=== PATIENT | male | born 1940 | race Caucasian/White ===

== ENCOUNTER 2021-02-28 06:41 | Outpatient (REF) | payer MEDICARE, SELFPAY ==
--- NOTE | ~2021-02-28 | XR_ITS ---
EXAMINATION: XR CHEST CLINICAL INFORMATION: Essential hypertension. Dyspnea on exertion. COMPARISON: Chest 12/11/2007 TECHNIQUE: 2 views of the chest were obtained. FINDINGS: Since the last exam there is mild elevated left hemidiaphragm likely underlying atelectasis. Otherwise rest of lungs are clear. The heart size and pulmonary vascularity is normal. There is a hiatal hernia suspected. No gross bony abnormality seen. XR/XR chest 2V IMPRESSION: Elevated left hemidiaphragm with underlying atelectasis. The rest of lungs are clear.
--- NOTE | 2021-02-28 07:21 | ECG_ITS ---
Test Reason : PRESCOTT,HTN,CAD Blood Pressure : / mmHG Vent. Rate : 063 BPM Atrial Rate : 063 BPM P-R Int : 150 ms QRS Dur : 090 ms QT Int : 390 ms P-R-T Axes : 021 002 008 degrees QTc Int : 399 ms Sinus rhythm with Premature atrial complexes Otherwise normal ECG When compared with ECG of 11-JUN-2017 07:38, Premature atrial complexes are now Present Referred By: Cj Barber Electronically Signed By:ALBANIA BLAKE MD
[2021-02-28 08:02] LABS: MANUAL DIFF FLAG NO
[2021-02-28 08:04] LABS: Basophils Percent Auto 0.4 % (0-2); Eosinophils Absolute Auto 0.2 X10*3/uL (0.0-0.4); Eosinophils Percent Auto 2.7 % (0-4); Hematocrit 46.9 % (42-52); Hemoglobin 15.8 g/dl (14.0-18.0); Imm Gran Abs Auto 0.01 X10*3/uL (0.00-0.03); Imm Gran Pct Auto 0.1 % (0.0-0.4); Lymphocytes Absolute Auto 1.4 X10*3/uL (1.2-4.9); Lymphocytes Percent Auto 20.7 % (20-40); Mean Corpuscular HGB Conc 33.7 g/dl (31.0-36.0); Mean Corpuscular Hemoglobin 31.2 pg (27.0-33.0); Mean Corpuscular Volume 92.7 fL (80-98); Mean Platelet Volume 12.2 fL (9.4-12.4); Monocytes Absolute Auto 0.5 X10*3/uL (0.1-1.2); Monocytes Percent Auto 6.7 % (2-11); Neutrophils Absolute Auto 4.7 X10*3/uL (2.0-8.3); Neutrophils Percent Auto 69.4 % (45-73); Platelet Count 102 X10*3/uL (160-400); Red Blood Count 5.06 X10*6/uL (4.60-5.80); Red Cell Distribution Width 13.2 % (11.0-16.0); White Blood Count 6.7 X10*3/uL (4.8-10.8)
[2021-02-28 08:29] LABS: Alanine Aminotransferase 26 U/L (0-40); Alkaline Phosphatase 92 U/L (39-117); Anion Gap 10 (12-20); Aspartate Amino Transferase 26 U/L (5-37); B Type Natriuretic Peptide 41 pg/mL (<100); Bilirubin Total 0.9 mg/dL (0.0-1.0); Blood Urea Nitrogen 17 mg/dL (9-16); Calcium 8.8 mg/dL (8.4-10.2); Carbon Dioxide 29 mmol/L (22-29); Chloride 107 mmol/L (96-108); Cholesterol 134 mg/dL; Estimated Glomerular Filt Rate > 60; Glucose Fasting 109 mg/dL (60-99); HDL Cholesterol 46 mg/dL; LDL Cholesterol Calculated 77 mg/dl; Potassium 4.3 mmol/L (3.3-5.1); Sodium 142 mmol/L (135-145); Total Protein 6.3 g/dL (6.5-8.0); Triglycerides 55 mg/dL
[2021-02-28 08:52] LABS: Thyroid Stimulating Hormone 3.68 uIU/mL (0.32-4.0)
== END 2021-02-28 06:42 | disposition home or self-care (01) ==
LOC: HO.LAB 06:41
PROVIDERS: PCP Internal Medicine; Visit Provider Internal Medicine
DX: R06.00 Dyspnea, unspecified (principal); I25.10 Atherosclerotic heart disease of native coronary artery without angina pectoris; I10 Essential (primary) hypertension; E78.00 Pure hypercholesterolemia, unspecified; I49.1 Atrial premature depolarization
CPT/HCPCS: 36415; 71046; 80053; 80061; 83880; 84443; 85025; 93005

== ENCOUNTER 2021-03-14 09:37 | Outpatient (REF) | payer MEDICARE, SELFPAY ==
--- NOTE | 2021-03-14 | PFT_ITS ---
FLOWS: FEV1 of 89% of predicted at 2.28 L. FVC 73% of predicted at 2.68 L. FEV1 to FVC ratio of 0.85. No bronchodilator response. LUNG VOLUMES: Total lung capacity 72% of predicted at 4.81 L. Residual volume 81% of predicted at 2.11 L. Slow vital capacity 66% of predicted at 2.70 L. Expiratory reserve volume 145% of predicted at 1.48 L. Diffusion capacity is mildly decreased, diffusion capacity corrects to normal after adjustment for alveolar ventilation. IMPRESSION: Mild restrictive ventilatory defect with no bronchodilator response. Jerald Choudhury MD AP/MODL / [id number]
== END 2021-03-14 09:38 | disposition home or self-care (01) ==
LOC: HO.RESP 09:37
PROVIDERS: PCP Internal Medicine; Visit Provider Internal Medicine
DX: R06.00 Dyspnea, unspecified (principal)
CPT/HCPCS: 94060; 94727; 94729

== ENCOUNTER 2021-08-09 09:18 | Outpatient (REF) | payer MEDICARE, SELFPAY ==
[2021-08-09 11:15] LABS: MANUAL DIFF FLAG NO
[2021-08-09 11:24] LABS: Basophils Absolute Auto 0.1 X10*3/uL (0.0-0.2); Basophils Percent Auto 0.6 % (0-2); Eosinophils Absolute Auto 0.2 X10*3/uL (0.0-0.4); Eosinophils Percent Auto 2.6 % (0-4); Hematocrit 46.7 % (42-52); Hemoglobin 15.5 g/dl (14.0-18.0); Imm Gran Abs Auto 0.03 X10*3/uL (0.00-0.03); Imm Gran Pct Auto 0.4 % (0.0-0.4); Lymphocytes Absolute Auto 2.1 X10*3/uL (1.2-4.9); Lymphocytes Percent Auto 24.6 % (20-40); Mean Corpuscular HGB Conc 33.2 g/dl (31.0-36.0); Mean Corpuscular Hemoglobin 31.1 pg (27.0-33.0); Mean Corpuscular Volume 93.8 fL (80-98); Mean Platelet Volume 12.1 fL (9.4-12.4); Monocytes Absolute Auto 0.8 X10*3/uL (0.1-1.2); Monocytes Percent Auto 9.5 % (2-11); Neutrophils Absolute Auto 5.2 X10*3/uL (2.0-8.3); Neutrophils Percent Auto 62.3 % (45-73); Platelet Count 109 X10*3/uL (160-400); Red Blood Count 4.98 X10*6/uL (4.60-5.80); Red Cell Distribution Width 13.2 % (11.0-16.0); White Blood Count 8.4 X10*3/uL (4.8-10.8)
== END 2021-08-09 09:19 | disposition home or self-care (01) ==
LOC: HO.HMGCLDS 09:18
PROVIDERS: PCP Internal Medicine; Visit Provider Internal Medicine
DX: D69.6 Thrombocytopenia, unspecified (principal)
CPT/HCPCS: 36415; 85025

== ENCOUNTER 2021-10-08 11:38 | Outpatient (REF) | payer MEDICARE, SELFPAY ==
[2021-10-08 13:01] LABS: Influenza A PCR NEGATIVE (Negative); Influenza B PCR NEGATIVE (Negative); Resp Syncy Virus RNA Qual PCR NEGATIVE (Negative); SARS COV2 PCR INHOUSE POSITIVE (Negative)
== END 2021-10-08 11:39 | disposition home or self-care (01) ==
LOC: HO.LNP 11:38
PROVIDERS: Visit Provider Physician Assistant Medical
DX: Z20.822 Contact with and (suspected) exposure to COVID-19 (principal); J06.9 Acute upper respiratory infection, unspecified
CPT/HCPCS: 0241U

== ENCOUNTER 2021-10-19 08:16 | Outpatient (REF) | payer MEDICARE, SELFPAY ==
[2021-10-19 08:37] LABS: COVID-19 Test Negative (Negative)
== END 2021-10-19 08:17 | disposition home or self-care (01) ==
LOC: HO.LAB 08:16
PROVIDERS: PCP Internal Medicine; Visit Provider Internal Medicine
DX: Z20.822 Contact with and (suspected) exposure to COVID-19 (principal)
CPT/HCPCS: 36415; 87635; C9803

== ENCOUNTER 2022-02-01 06:48 | Outpatient (REF) | payer MEDICARE, SELFPAY ==
[2022-02-01 11:40] LABS: MANUAL DIFF FLAG NO
[2022-02-01 11:58] LABS: Basophils Percent Auto 0.5 % (0-2); Eosinophils Absolute Auto 0.2 X10*3/uL (0.0-0.4); Eosinophils Percent Auto 3.1 % (0-4); Hematocrit 47.9 % (42.0-52.0); Hemoglobin 15.8 g/dl (14.0-18.0); Imm Gran Abs Auto 0.03 X10*3/uL (0.00-0.03); Imm Gran Pct Auto 0.4 % (0.0-0.4); Lymphocytes Absolute Auto 1.8 X10*3/uL (1.2-4.9); Lymphocytes Percent Auto 24.6 % (20-40); Mean Corpuscular Hemoglobin 30.6 pg (27.0-33.0); Mean Corpuscular Volume 92.6 fL (80.0-98.0); Monocytes Absolute Auto 0.5 X10*3/uL (0.1-1.2); Monocytes Percent Auto 7.3 % (2-11); Neutrophils Absolute Auto 4.7 x10*3/uL (2.0-8.3); Neutrophils Percent Auto 64.1 % (45-73); Red Blood Count 5.17 X10*6/uL (4.60-5.80); Red Cell Distribution Width 13.3 % (11.0-16.0); White Blood Count 7.3 X10*3/uL (4.8-10.8)
[2022-02-01 12:25] LABS: Alanine Aminotransferase 22 U/L (0-40); Albumin Level 3.9 g/dL (3.5-5.0); Alkaline Phosphatase 94 U/L (39-117); Anion Gap 10 (12-20); Aspartate Amino Transferase 24 U/L (5-37); Bilirubin Total 0.9 mg/dL (0.0-1.0); Blood Urea Nitrogen 18 mg/dL (9-16); Calcium 9.6 mg/dL (8.4-10.2); Carbon Dioxide 28 mmol/L (22-29); Chloride 107 mmol/L (96-108); Cholesterol 153 mg/dL; Estimated Glomerular Filt Rate > 60; Glucose Fasting 100 mg/dL (60-99); HDL Cholesterol 48 mg/dL; LDL Cholesterol Calculated 93 mg/dl; Potassium 4.3 mmol/L (3.3-5.1); Sodium 141 mmol/L (135-145); Total Protein 6.3 g/dL (6.5-8.0); Triglycerides 62 mg/dL
[2022-02-01 13:18] LABS: Thyroid Stimulating Hormone 4.13 uIU/mL (0.32-4.0)
== END 2022-02-01 06:49 | disposition home or self-care (01) ==
LOC: HO.HMGCLDS 06:48
PROVIDERS: Visit Provider Internal Medicine
DX: I25.10 Atherosclerotic heart disease of native coronary artery without angina pectoris (principal); I10 Essential (primary) hypertension; E78.00 Pure hypercholesterolemia, unspecified; D69.6 Thrombocytopenia, unspecified
CPT/HCPCS: 36415; 80053; 80061; 82306; 84443; 85025

== ENCOUNTER 2022-02-04 07:16 | Outpatient (REF) | payer MEDICARE, SELFPAY ==
[2022-02-04 13:25] LABS: Platelet Count 121 X10*3/uL (160-400)
[2022-02-04 13:55] LABS: Platelet Count (Citrate) 151 X10*3/uL (150-310)
== END 2022-02-04 07:17 | disposition home or self-care (01) ==
LOC: HO.HMGCLDS 07:16
PROVIDERS: Visit Provider Internal Medicine
DX: D69.6 Thrombocytopenia, unspecified (principal)
CPT/HCPCS: 36415; 85049

== ENCOUNTER 2022-09-16 07:01 | Outpatient (REF) | payer MEDICARE, SELFPAY ==
[2022-09-16 07:59] LABS: Hematocrit 45.7 % (42.0-52.0); Imm Gran Abs Auto 0.02 X10*3/uL (0.00-0.03); Imm Gran Pct Auto 0.3 % (0.0-0.4); MANUAL DIFF FLAG SCAN; Neutrophils Absolute Auto 5.5 x10*3/uL (2.0-8.3); PLT CLUMP 1; Red Cell Distribution Width 13.1 % (11.0-16.0); SCAN SMEAR FLAG 1
[2022-09-16 08:00] LABS: Basophils Absolute Auto 0.1 X10*3/uL (0.0-0.2); Basophils Percent Auto 0.6 % (0-2); Eosinophils Absolute Auto 0.2 X10*3/uL (0.0-0.4); Eosinophils Percent Auto 2.8 % (0-4); Hemoglobin 15.4 g/dl (14.0-18.0); Lymphocytes Absolute Auto 1.5 X10*3/uL (1.2-4.9); Lymphocytes Percent Auto 19.1 % (20-40); Mean Corpuscular HGB Conc 33.7 g/dl (31.0-36.0); Mean Corpuscular Hemoglobin 30.7 pg (27.0-33.0); Monocytes Absolute Auto 0.5 X10*3/uL (0.1-1.2); Monocytes Percent Auto 6.6 % (2-11); Neutrophils Percent Auto 70.6 % (45-73); Red Blood Count 5.02 X10*6/uL (4.60-5.80)
[2022-09-16 08:22] LABS: Alanine Aminotransferase 18 U/L (0-40); Albumin Level 3.9 g/dL (3.5-5.0); Alkaline Phosphatase 91 U/L (39-117); Anion Gap 12 (12-20); Aspartate Amino Transferase 23 U/L (5-37); Bilirubin Total 0.8 mg/dL (0.0-1.0); Blood Urea Nitrogen 16 mg/dL (9-16); Calcium 9.3 mg/dL (8.4-10.2); Carbon Dioxide 27 mmol/L (22-29); Chloride 106 mmol/L (96-108); Cholesterol 123 mg/dL; Estimated Glomerular Filt Rate > 60; Glucose Fasting 108 mg/dL (60-99); HDL Cholesterol 43 mg/dL; LDL Cholesterol Calculated 71 mg/dl; Potassium 5.2 mmol/L (3.3-5.1); Sodium 140 mmol/L (135-145); Total Protein 6.1 g/dL (6.5-8.0); Triglycerides 48 mg/dL
[2022-09-16 08:39] LABS: Thyroid Stimulating Hormone 5.01 uIU/mL (0.32-4.0); Vitamin D 25-OH Total 23.2 ng/mL (>30)
[2022-09-16 09:01] LABS: White Blood Count 7.8 X10*3/uL (4.8-10.8)
[2022-09-16 09:02] LABS: Platelet Count 151 X10*3/uL (160-400)
[2022-09-16 09:03] LABS: SLIDE REVIEW VERIFIED
== END 2022-09-16 07:02 | disposition home or self-care (01) ==
LOC: HO.LAB 07:01
PROVIDERS: PCP Internal Medicine; Visit Provider Internal Medicine
DX: I25.10 Atherosclerotic heart disease of native coronary artery without angina pectoris (principal); I10 Essential (primary) hypertension; E78.00 Pure hypercholesterolemia, unspecified; E55.9 Vitamin D deficiency, unspecified; D69.6 Thrombocytopenia, unspecified
CPT/HCPCS: 80053; 80061; 82306; 83519; 84182; 84443; 85025; 86255; 86341; 86596

== ENCOUNTER 2023-03-18 06:43 | Outpatient (REF) | payer MEDICARE, SELFPAY ==
[2023-03-18 06:54] LABS: MANUAL DIFF FLAG NO
[2023-03-18 07:35] LABS: Basophils Absolute Auto 0.1 X10*3/uL (0.0-0.2); Basophils Percent Auto 0.6 % (0-2); Eosinophils Absolute Auto 0.2 X10*3/uL (0.0-0.4); Eosinophils Percent Auto 2.6 % (0-4); Hematocrit 47.6 % (42.0-52.0); Hemoglobin 15.7 g/dl (14.0-18.0); Imm Gran Abs Auto 0.03 X10*3/uL (0.00-0.03); Imm Gran Pct Auto 0.4 % (0.0-0.4); Lymphocytes Absolute Auto 1.6 X10*3/uL (1.2-4.9); Lymphocytes Percent Auto 20.5 % (20-40); Mean Corpuscular Hemoglobin 30.6 pg (27.0-33.0); Mean Corpuscular Volume 92.8 fL (80.0-98.0); Mean Platelet Volume 11.2 fL (9.4-12.4); Monocytes Absolute Auto 0.6 X10*3/uL (0.1-1.2); Monocytes Percent Auto 7.8 % (2-11); Neutrophils Absolute Auto 5.4 x10*3/uL (2.0-8.3); Neutrophils Percent Auto 68.1 % (45-73); Platelet Count 161 X10*3/uL (160-400); Red Blood Count 5.13 X10*6/uL (4.60-5.80); Red Cell Distribution Width 13.2 % (11.0-16.0)
[2023-03-18 08:06] LABS: B Type Natriuretic Peptide 56 pg/mL (<100)
[2023-03-18 08:17] LABS: Alanine Aminotransferase 21 U/L (0-40); Albumin Level 3.9 g/dL (3.5-5.0); Alkaline Phosphatase 107 U/L (39-117); Anion Gap 11 (12-20); Aspartate Amino Transferase 25 U/L (5-37); Blood Urea Nitrogen 15 mg/dL (9-16); Calcium 9.2 mg/dL (8.4-10.2); Carbon Dioxide 28 mmol/L (22-29); Chloride 108 mmol/L (96-108); Cholesterol 132 mg/dL; Estimated Glomerular Filt Rate > 60; Glucose Fasting 102 mg/dL (60-99); HDL Cholesterol 47 mg/dL; LDL Cholesterol Calculated 76 mg/dl; Potassium 4.7 mmol/L (3.3-5.1); Sodium 142 mmol/L (135-145); Total Protein 6.2 g/dL (6.5-8.0); Triglycerides 48 mg/dL
[2023-03-18 08:21] LABS: Thyroid Stimulating Hormone 7.53 uIU/mL (0.32-4.0); Vitamin D 25-OH Total 26.3 ng/mL (>30)
== END 2023-03-18 06:44 | disposition home or self-care (01) ==
LOC: HO.LAB 06:43
PROVIDERS: PCP Internal Medicine; Visit Provider Internal Medicine
DX: I25.10 Atherosclerotic heart disease of native coronary artery without angina pectoris (principal); I10 Essential (primary) hypertension; E78.00 Pure hypercholesterolemia, unspecified; R06.00 Dyspnea, unspecified; E55.9 Vitamin D deficiency, unspecified
CPT/HCPCS: 36415; 80053; 80061; 82306; 83880; 84443; 85025

== ENCOUNTER 2023-07-15 07:00 | Outpatient (REF) | payer MEDICARE, SELFPAY ==
[2023-07-15 07:54] LABS: Anion Gap 7 (12-20); Blood Urea Nitrogen 15 mg/dL (9-16); Calcium 9.2 mg/dL (8.4-10.2); Carbon Dioxide 29 mmol/L (22-29); Chloride 109 mmol/L (96-108); Estimated Glomerular Filt Rate > 60; Glucose Random 112 mg/dL (60-115); Potassium 4.3 mmol/L (3.3-5.1); Sodium 141 mmol/L (135-145)
[2023-07-15 08:11] LABS: Thyroid Stimulating Hormone 4.45 uIU/mL (0.32-4.0)
== END 2023-07-15 07:01 | disposition home or self-care (01) ==
LOC: HO.LAB 07:00
PROVIDERS: PCP Internal Medicine; Visit Provider Internal Medicine
DX: I25.10 Atherosclerotic heart disease of native coronary artery without angina pectoris (principal); I10 Essential (primary) hypertension; E78.00 Pure hypercholesterolemia, unspecified; E55.9 Vitamin D deficiency, unspecified
CPT/HCPCS: 36415; 80048; 84443

== ENCOUNTER 2024-03-01 06:29 | Outpatient (REF) | payer MEDICARE, SELFPAY ==
[2024-03-01 07:30] LABS: Basophils Percent Auto 0.4 % (0-2); Eosinophils Absolute Auto 0.1 X10*3/uL (0.0-0.4); Eosinophils Percent Auto 1.8 % (0-4); Hematocrit 46.1 % (42.0-52.0); Hemoglobin 15.4 g/dl (14.0-18.0); Imm Gran Abs Auto 0.01 X10*3/uL (0.00-0.03); Imm Gran Pct Auto 0.1 % (0.0-0.4); Lymphocytes Absolute Auto 1.6 X10*3/uL (1.2-4.9); Lymphocytes Percent Auto 22.1 % (20-40); MANUAL DIFF FLAG SCAN; Mean Corpuscular HGB Conc 33.4 g/dl (31.0-36.0); Mean Corpuscular Volume 92.8 fL (80.0-98.0); Monocytes Absolute Auto 0.5 X10*3/uL (0.1-1.2); Monocytes Percent Auto 7.5 % (2-11); Neutrophils Absolute Auto 4.8 x10*3/uL (2.0-8.3); Neutrophils Percent Auto 68.1 % (45-73); PLT CLUMP 1; Red Blood Count 4.97 X10*6/uL (4.60-5.80); Red Cell Distribution Width 13.9 % (11.0-16.0); SCAN SMEAR FLAG 1
[2024-03-01 07:36] LABS: White Blood Count 7.1 X10*3/uL (4.8-10.8)
[2024-03-01 07:57] LABS: Alanine Aminotransferase 21 U/L (0-40); Albumin Level 3.7 g/dL (3.5-5.0); Alkaline Phosphatase 101 U/L (39-117); Anion Gap 8 (12-20); Aspartate Amino Transferase 25 U/L (5-37); Bilirubin Total 0.7 mg/dL (0.0-1.0); Blood Urea Nitrogen 16 mg/dL (9-16); Calcium 9.4 mg/dL (8.4-10.2); Carbon Dioxide 29 mmol/L (22-29); Chloride 107 mmol/L (96-108); Cholesterol 137 mg/dL (<200); Estimated Glomerular Filt Rate > 60; Glucose Fasting 103 mg/dL (60-99); HDL Cholesterol 55 mg/dL (>40); LDL Cholesterol Calculated 73 mg/dL (<100); Potassium 4.2 mmol/L (3.3-5.1); Sodium 140 mmol/L (135-145); Total Protein 6.4 g/dL (6.5-8.0); Triglycerides 47 mg/dL (<150)
[2024-03-01 08:15] LABS: Thyroid Stimulating Hormone 4.72 uIU/mL (0.32-4.0); Vitamin D 25-OH Total 22.7 ng/mL (>30)
[2024-03-01 08:20] LABS: SLIDE REVIEW VERIFIED
== END 2024-03-01 06:30 | disposition home or self-care (01) ==
LOC: HO.LAB 06:29
PROVIDERS: PCP Internal Medicine; Visit Provider Internal Medicine
DX: I25.10 Atherosclerotic heart disease of native coronary artery without angina pectoris (principal); I10 Essential (primary) hypertension; E78.00 Pure hypercholesterolemia, unspecified; E55.9 Vitamin D deficiency, unspecified
CPT/HCPCS: 36415; 80053; 80061; 82306; 84443; 85025

== ENCOUNTER 2024-05-04 09:26 | Outpatient (REF) | payer MEDICARE, SELFPAY ==
--- NOTE | ~2024-05-04 | XR_ITS ---
EXAMINATION: XR BILATERAL SHOULDERS CLINICAL INFORMATION: Bilateral shoulder pain. COMPARISON: Left shoulder of 06/14/2016. TECHNIQUE: 4 views of each shoulder. FINDINGS: RIGHT SHOULDER: Diffuse osteopenia. Moderate degenerative changes in the acromioclavicular and glenohumeral joints. Tiny soft tissue calcifications adjacent to the lateral aspect of the humeral head. Multiple small calcifications along the inferolateral aspect of the acromion. Narrowing of the right subacromial space. LEFT SHOULDER: Diffuse osteopenia. Moderate degenerative changes in the acromioclavicular and glenohumeral joints. Small soft tissue calcification inferior to the glenoid. Tiny soft tissue calcifications adjacent to the proximal diaphysis of the humerus. Multiple small calcifications along the inferolateral aspect of the acromion. Narrowing of the left subacromial space. XR/XR shoulder LT min 2V IMPRESSION: Degenerative changes in bilateral shoulders with narrowing of the bilateral subacromial spaces, left greater than right.
--- NOTE | ~2024-05-04 | XR_ITS ---
EXAMINATION: XR BILATERAL SHOULDERS CLINICAL INFORMATION: Bilateral shoulder pain. COMPARISON: Left shoulder of 06/14/2016. TECHNIQUE: 4 views of each shoulder. FINDINGS: RIGHT SHOULDER: Diffuse osteopenia. Moderate degenerative changes in the acromioclavicular and glenohumeral joints. Tiny soft tissue calcifications adjacent to the lateral aspect of the humeral head. Multiple small calcifications along the inferolateral aspect of the acromion. Narrowing of the right subacromial space. LEFT SHOULDER: Diffuse osteopenia. Moderate degenerative changes in the acromioclavicular and glenohumeral joints. Small soft tissue calcification inferior to the glenoid. Tiny soft tissue calcifications adjacent to the proximal diaphysis of the humerus. Multiple small calcifications along the inferolateral aspect of the acromion. Narrowing of the left subacromial space. XR/XR shoulder RT min 2V IMPRESSION: Degenerative changes in bilateral shoulders with narrowing of the bilateral subacromial spaces, left greater than right.
== END 2024-05-04 09:27 | disposition home or self-care (01) ==
LOC: HO.XRAY 09:26
PROVIDERS: PCP Internal Medicine; Visit Provider Internal Medicine
DX: M25.512 Pain in left shoulder (principal); M25.511 Pain in right shoulder
CPT/HCPCS: 73030

== ENCOUNTER 2024-09-21 07:25 | Outpatient (REF) | payer MEDICARE, SELFPAY ==
[2024-09-21 07:42] LABS: MANUAL DIFF FLAG NO
[2024-09-21 08:42] LABS: Basophils Percent Auto 0.5 % (0-2); Eosinophils Absolute Auto 0.1 X10*3/uL (0.0-0.4); Eosinophils Percent Auto 1.7 % (0-4); Hematocrit 44.5 % (42.0-52.0); Hemoglobin 15.2 g/dl (14.0-18.0); Imm Gran Abs Auto 0.03 X10*3/uL (0.00-0.03); Imm Gran Pct Auto 0.5 % (0.0-0.4); Lymphocytes Absolute Auto 1.6 X10*3/uL (1.2-4.9); Lymphocytes Percent Auto 23.4 % (20-40); Mean Corpuscular HGB Conc 34.2 g/dl (31.0-36.0); Mean Corpuscular Hemoglobin 32.1 pg (27.0-33.0); Mean Corpuscular Volume 93.9 fL (80.0-98.0); Mean Platelet Volume 10.7 fL (9.4-12.4); Monocytes Absolute Auto 0.5 X10*3/uL (0.1-1.2); Monocytes Percent Auto 7.6 % (2-11); Neutrophils Absolute Auto 4.4 x10*3/uL (2.0-8.3); Neutrophils Percent Auto 66.3 % (45-73); Platelet Count 165 X10*3/uL (160-400); Red Blood Count 4.74 X10*6/uL (4.60-5.80); Red Cell Distribution Width 12.7 % (11.0-16.0); White Blood Count 6.6 X10*3/uL (4.8-10.8)
[2024-09-21 09:50] LABS: Thyroid Stimulating Hormone 4.75 uIU/mL (0.32-4.0); Vitamin D 25-OH Total 30.8 ng/mL (>30)
== END 2024-09-21 07:26 | disposition home or self-care (01) ==
LOC: HO.LAB 07:25
PROVIDERS: PCP Internal Medicine; Visit Provider Internal Medicine
DX: Z00.00 Encounter for general adult medical examination without abnormal findings (principal); I25.10 Atherosclerotic heart disease of native coronary artery without angina pectoris; I10 Essential (primary) hypertension; E78.00 Pure hypercholesterolemia, unspecified; D69.6 Thrombocytopenia, unspecified; E55.9 Vitamin D deficiency, unspecified
CPT/HCPCS: 36415; 82306; 84443; 85025

== ENCOUNTER 2024-12-30 15:04 | Outpatient (REF) | payer MEDICARE, SELFPAY ==
--- OUTSIDE RECORDS SUMMARY | 2024-12-30 15:07 | XMS_ITS | Encounter Summary ---
Author Organization [facility] Address [address] [place] [address] Care Team Providers Care Roll Plugger Name Role Phone Cj Barber Primary Care Provider [phone] Reason for Visit * Reason Comments Hospital Follow-up Encounter Details Date Type Department Care Team (Late st Contact Info) Description 11/30/2024 11:20 AM EST Office Visit [facility] Cardiology [address] [place] [phone] La Nena Syed MD [address] [place] [address] [address] [phone] Coronary artery disease involving tu[place]ne coronary artery of tuolumne heart without angina pectoris (Primary Dx); Dyspnea on exertion; Hypercholesterolemia Social History Tobacco Use Types Packs/Day Years Used Date Smoking Tobacco: Former Smokeless Tobacco: Never Alcohol Use Standard Drinks/Week Comments Not Currently 0 (1 standard drink = 0.6 oz pur e alcohol) Sex and Gender Information Value Date Recorded Sex Assigned at Not on file Gender Identity Not on file Sexual Orientation Not on file Job Start Date Occupation Industry Not on file Not on file Not on file documented as of this encounter Last Filed Vital Signs Vital Sign Reading Time Taken Comments Blood Pressure 94/60 11/30/2024 11:07 AM EST Pulse 70 11/30/2024 11:07 AM EST Temperature - - Respiratory Rate - - Oxygen Saturation 97% 11/30/2024 11:07 AM EST Inhaled Oxygen Concentration - - Weight 73.6 kg (162 lb 4.8 oz) 11/30/2024 11:07 AM EST Height 172.7 cm (5' 8 ) 11/30/2024 11:07 AM EST Body Mass Index 24.68 11/30/2024 11:07 AM EST documented in this encounter Progress Notes * La Nena Syed MD - 11/30/2024 11:20 AM ESTAssociated Problem(s): Coronary artery disease involving tu[place]ne coronary artery of tuolumne heart without angina pectoris The patient has a history of circumflex stenting in 2003 and right coronary artery stenting in the setting of an inferior MO in 2011. He has not had overt angina until quite recently, coincident withinterruption of aspirin and a concomitant urinary tract infection. Since hospital discharge following his urinary tract infection and coronary symptoms, he has had only infrequent and brief episodes of angina which have responded to a single nitroglycerin tablet. He has had peripheral edema which is partially due to amlodipine and which may also be due to leg dependency and lack of compressive hose at home. At this time I am discontinuing amlodipine and discontinuing clopidogrel. The patient will stay on aspirin which can be continued without interruption perioperatively. I feel that the patient may proceed with neurosurgical intervention which would be performed at an intermediate but acceptable risk. The patient may be maintained on his present medical regimen. Perioperative use of nitroglycerin ointment may be considered for any episodes of chest discomfort or perioperative hypertension. My partners and I will be available for ongoing cardiac questions or concerns. Orders: ECG 12 lead * La Nena Syed MD - 11/30/2024 11:20 AM ESTAssociated Problem(s): Dyspnea on exertion Chronic stable exertional dyspnea does not appear to be due to coronary disease or left ventriculardysfunction. Orders: ECG 12 lead * La Nena Syed MD - 11/30/2024 11:20 AM ESTAssociated Problem(s): Hypercholesterolemia Longstanding hypercholesterolemia has been treated with high-dose atorvastatin.` * La Nena Syed MD - 11/30/2024 11:20 AM EST PCP: Cj Barber DO HPI: Gordo Bullock is a 84 y.o. old male with past medical history of coronary artery disease status postleft circumflex artery coronary stenting in 2003, inferior STEMI with complications of complete heart block in 2011 status post right coronary artery stenting, remote history of vasovagal syncope, hyperlipidemia and chronic dyspnea. The patient has had chronic breathlessness. He had previously undergone a stress test in May 2022 which did not show ischemia but did reveal a small apical fixed defect. Repeat nuclear stress testing several months ago was performed with exercise. The patient had fairly good effort capacity and stopped exercise after 7 minutes due to fatigue. Nuclear imaging revealed a small apical abnormality with mild reversibility. Left ventricular function was normal. The patient has recently developed progressive neurologic issues related to compression of his cervical spine. He was seen in the hospital and neurosurgical intervention was planned. Cardiac clearance was requested including interruption of antiplatelet therapy. Aspirin was discontinued and the patient was discharged. He was readmitted 3 days later with clinical evidence of a urinary tract infection, transient hypotension, chest discomfort and breathlessness. He had a modest bump in his troponin without EKG changes. Echocardiography did not demonstrate any wall motion abnormalities. It was felt that his neurosurgery should be deferred and the patient was started on dual antiplatelet therapyin addition to intensification of his antianginal regimen. He did have a couple of episodes of angina at rest responsive to nitroglycerin. Transient evidence of pulmonary congestion responded to diuretic therapy. I spoke directly with his neurosurgeon and made plans with the patient to return to the office today to consider the most appropriate option for perioperative management of his heart disease. Gordo was discharged from the hospital on November 18, 2024. Since that time he has been fairly sedentary. Overall his clinical status has been relatively stable. He has had 2 separate episodes of chest discomfort each of which responded to a single nitroglycerin tablet. He has not had significant b reathlessness. He does note in the past few days that he has had progressive bilateral ankle swelling. He acknowledges that he has spent a fair bit of time seated in a chair with his legs in a dependent position. He is not reporting palpitations or episodes of profound lightheadedness or fainting. He continues to be bothered by neck discomfort and difficulty utilizing his fingers which he attributes to his cervical cord compression. He feels this has gotten worse and worse so that it is difficult to pick a knife up from the table. ACTIVE MEDICATIONS: Outpatient Medications Marked as Taking for the 11/30/24 encounter (Office Visit) with La Nena Syed MD Medication Sig Dispense Refill amLODIPine (NORVASC) 5 mg tablet Take 1 tablet (5 mg total) by mouth 1 (one) time each day. aspirin 81 mg EC tablet Take 1 tablet (81 mg total) by mouth 1 (one) time each day. atorvastatin (LIPITOR) 80 mg tablet Take 1 tablet (80 mg total) by mouth. clopidogreL (PLAVIX) 75 mg tablet Take 1 tablet (75 mg total) by mouth 1 (one) time each day. finasteride (PROSCAR) 5 mg tablet Take 1 tablet (5 mg total) by mouth 1 (one) time each day. Do notcrush, chew, or split. isosorbide mononitrate (IMDUR) 30 mg 24 hr tablet Take 1 tablet (30 mg total) by mouth 1 (one) timeeach day. Do not crush or chew. metoprolol succinate (TOPROL-XL) 25 mg 24 hr tablet Take 1 tablet (25 mg total) by mouth. nitroglycerin (NITROSTAT) 0.[address] 1 tablet (0.4 mg total) under the tongue every 5 (five) minutes if needed for chest pain. tamsulosin (FLOMAX) 0.4 mg 24 hr capsule Take 1 capsule (0.4 mg total) by mouth 1 (one) time each day with breakfast. Capsules should be taken 30 minutes following the same meal each day. PAST MEDICAL HISTORY: Patient Active Problem List Diagnosis Date Noted Date Diagnosed Hypercholesterolemia 11/30/2024 Mixed hyperlipidemia 07/24/2022 Coronary artery disease involving tu[place]umne coronary artery of tuolumne heart without angina pectoris 06/11/2022 Dyspnea on exertion 06/11/2022 Resolved Problems No resolved problems to display. ALLERGIES: No Known Allergies FAMILY HISTORY: No family history on file. SOCIAL HISTORY: Social History Tobacco Use Smoking status: Former Smokeless tobacco: Never Substance Use Topics Alcohol use: Not Currently REVIEW OF SYSTEMS: Nolan catheter in place. PHYSICAL EXAM: Vitals: 11/30/24 1107 BP: 94/60 BP Location: Left arm Patient Position: Sitting BP Cuff Size: Large adult Pulse: 70 SpO2: 97% Weight: 73.6 kg (162 lb 4.8 oz) Height: 1.727 m (68 ) APPEARANCE: Alert and in no acute distress, well-developed, well-nourished, chronically ill. EYES: PERRL, conjunctiva and sclera normal EARS: External ears normal. NOSE/SINUS: Nares normal. Septum midline. Mucosa normal. No drainage or sinus tenderness. MOUTH/THROAT: no erythema or exudates NECK: JVP less then 8cm H2O, No bruits., Neck supple, no adenopathy or mass HEART: RRR with normal S1 and S2, no murmurs, no gallops, no JVD appreciated CHEST: non-tender LUNG: clear to auscultation ABDOMEN: Bowel sounds normoactive, no bruits, soft, non-tender, without organomegaly or palpable masses EXTREMITIES: Extremities warm and well perfused without clubbing, cyanosis, pos BLE 2+ edema NEURO: Awake, alert and oriented x 3 and Unsteady gait SKIN: Skin color, texture, turgor normal. No rashes or lesions. EKG: NSR normal ASSESSMENT/PLAN: Assessment & Plan Coronary artery disease involving tuolumne coronary artery of tuolumne heart without angina pectoris The patient has a history of circumflex stenting in 2004 and right coronary artery stenting in the setting of an inferior MO in 2011. He has not had overt angina until quite recently, coincident withinterruption of aspirin and a concomitant urinary tract infection. Since hospital discharge following his urinary tract infection and coronary symptoms, he has had only infrequent and brief episodes of angina which have responded to a single nitroglycerin tablet. He has had peripheral edema which is partially due to amlodipine and which may also be due to leg dependency and lack of compressive hose at home. At this time I am discontinuing amlodipine and discontinuing clopidogrel. The patient will stay on aspirin which can be continued without interruption perioperatively. I feel that the patient may proceed with neurosurgical intervention which would be performed at an intermediate but acceptable risk. The patient may be maintained on his present medical regimen. Perioperative use of nitroglycerin ointment may be considered for any episodes of chest discomfort or perioperative hypertension. My partners and I will be available for ongoing cardiac questions or concerns. Orders: ECG 12 lead Dyspnea on exertion Chronic stable exertional dyspnea does not appear to be due to coronary disease or left ventriculardysfunction. Orders: ECG 12 lead Hypercholesterolemia Longstanding hypercholesterolemia has been treated with high-dose atorvastatin.` I spent 62 minutes in [id number] evaluation with the patient and his as well as in communication with Dr. Barraza and other members of the health care team involved in this very pleasant man's care. The [facility] team will continue to co-manage this patient following the plan of care as established by my initial visit and as per AHA guidelines for ongoing management and surveillance of chest pressure/discomfort, dyspnea, and fatigue. This will include medication titration, initiation of appropriate medications and further titration, and diagnostic studies to manage this disease process. documented in this encounter Plan of Treatment Upcoming Encounters Date Type Department Care Team (Late st Contact Info) Description 03/08/2025 1:10 PM EDT Office Visit [facility] [address] [place] [address] [place] [address] Shahid Ramos NP [address] [place] [address] [address] [place] [address] documented as of this encounter Procedures Procedure Name Priority Date/Time Associated Diagnosis Comments ECG 12-LEAD Routine 11/30/2024 11:15 AM EST Coronary artery disease involving tuolumne coronary artery of tuolumne heart without angina pectoris Dyspnea on exertion documented in this encounter Results * ECG 12 lead (11/30/2024 11:15 AM EST) Ventricular Rate ECG 70 BPM GEMUSE Atrial Rate 70 BPM GEMUSE P-R Interval 140 ms GEMUSE QRS Duration 90 ms GEMUSE Q-T Interval 374 ms GEMUSE QTc 403 ms GEMUSE P Wave [place] -6 degrees GEMUSE R [place] 23 degrees GEMUSE T [place] 18 degrees GEMUSE ECG Interpretation Normal sinus rhythm Normal ECG No previous ECGs available Confirmed by LA NENA SYED ([id number]) on 11/30/2024 11:32:37 AM GEMUSE 11/30/2024 11:1 5 AM EST 11/30/2024 11:32 AM EST La Nena Syed MD ECG ORDERABLES GEMUSE documented in this encounter Visit Diagnoses Diagnosis Coronary artery disease involving tuolumne coronary artery of tuolumne heart without angina pectoris- Primary Dyspnea on exertion Other dyspnea and respiratory abnormality Hypercholesterolemia Pure hypercholesterolemia documented in this encounter Discontinued Medications Medication Sig Discontinue Reason Start Date End Da te amLODIPine (NORVASC) 5 mg tablet Take 1 tablet (5 mg total) by mouth 1 (one) time each day. Prescriber Discontinued 11/30/2024 clopidogreL (PLAVIX) 75 mg tablet Take 1 tablet (75 mg total) by mouth 1 (one) time each day. Prescriber Discontinued 11/30/2024 amLODIPine (NORVASC) 5 mg tablet Take 1 tablet (5 mg total) by mouth 1 (one) time each day. Prescriber Discontinued 11/30/2024 lisinopriL (PRINIVIL,ZESTRIL) 5 mg tablet Take 1 tablet (5 mg total) by mouth. Discontinued by another clinician 11/30/2024 documented as of this encounter Historical Medications * This list may reflect changes made after this encounter. Medication Sig Dispensed Refills Start Date End Date tamsulosin (FLOMAX) 0.4 mg 24 hr capsule Take 1 capsule (0.4 mg total) by mouth 1 (one) time each day with breakfast. Capsules should be taken 30 minutes following the same meal each day. finasteride (PROSCAR) 5 mg tablet Take 1 tablet (5 mg total) by mouth 1 (one) time each day. Do not crush, chew, or split. metoprolol succinate (TOPROL-XL) 25 mg 24 hr tablet Take 1 tablet (25 mg total) by mouth. atorvastatin (LIPITOR) 80 mg tablet Take 1 tablet (80 mg total) by mouth. aspirin 81 mg EC tablet Take 1 tablet (81 mg total) by mouth 1 (one) time each day. nitroglycerin (NITROSTAT) 0.[address] 1 tablet (0.4 mg total) under the tongue every 5 (five) minutes if needed for chest pain. 12/16/2024 isosorbide mononitrate (IMDUR) 30 mg 24 hr tablet Take 1 tablet (30 mg total) by mouth 1 (one) time each day. Do not crush or chew. 12/28/2024 clopidogreL (PLAVIX) 75 mg tablet Take 1 tablet (75 mg total) by mouth 1 (one) time each day. 11/30/2024 amLODIPine (NORVASC) 5 mg tablet Take 1 tablet (5 mg total) by mouth 1 (one) time each day. 11/30/2024 lisinopriL (PRINIVIL,ZESTRIL) 5 mg tablet Take 1 tablet (5 mg total) by mouth. 11/30/2024 added in this encounter Care Teams Roll Plugger Relationship Specialty Start Date End Date Cj Barber DO [address] [place] [id number] PCP - General 04/21/13 documented as of this encounter
--- OUTSIDE RECORDS SUMMARY | 2024-12-30 15:07 | XMS_ITS | Encounter Summary ---
Author Organization [facility] Address [address] [place] [address] Care Team Providers Care Futures Trader Name Role Phone Cj Barber DO Primary Care Provider [phone] Reason for Visit * Reason Onset Date Comments Foot Swelling 12/16/2024 And leg Increased Edema 12/16/2024 Encounter Details Date Type Department Care Team ([facility] Contact Info) Description 12/16/2024 Telephone [facility] [address] [place] [phone] Mg Candelario MD [address] [place] [address],[address] [phone] Foot Swelling (And leg); Increased Edema Social History Tobacco Use Types Packs/Day Years [...] on file documented as of this encounter Ordered Prescriptions Prescription Sig Dispensed Refills Start Date End Da te furosemide (LASIX) 20 mg tablet Take 1 tablet (20 mg total) by mouth 1 (one) time each day. 90 tablet 12/16/2024 nitroglycerin (NITROSTAT) 0.[address] 1 tablet (0.4 mg total) under the tongue every 5 (five) minutes if needed for chest pain. Up to 3 doses/15 minutes. If chest pain is not relieved 5 minutes after the second dose, take a third dose and call 9-1-1. 25 tablet 1 12/16/2024 documented in this encounter Progress Notes * Evelyn Hendricks RN - 12/16/2024 3:42 PM EST Radha informed of the below recommendations. Lasix 20 mg daily rx sent to pt's preferred pharmacy. BMP ordered and mailed to confirmed address. * Shahid Ramos NP - 12/16/2024 3:33 PM EST Lasix 20mg daily - BMP in one week. * Evelyn Hendricks RN - 12/16/2024 2:35 PM EST I spoke to Radha who mentioned pt's feet and ankles were swollen before RUBIO. Now, BLE edema is knees. Pt denies pain or discoloration of BLEs, shortness of breath, orthopnea, PND and abdominal bloating. He wears compression stockings every other day and wearing them currently. Most of the time, he is elevating legs. Pt is avoiding salt. He doesn't monitor his weight daily. His weight on 12/11/24was 162 lbs. Then, on 12/14/24, his weight resulted 163.8 lbs. I advised Radha that pt should be checking and logging his weight daily in the morning, before eating or drinking, and call if he were to gain 2 or more pounds overnight, or 4 or more pounds in a week. His was BP 112/68 today and she did not have a HR value to relay. Currently pt has a urinary cathter in place and he denies decreasedurine output. Additionally, pt began endorsing involuntary twitching of his legs all day and at night- left leg is worse than the right for the last week. She questioned if pt can have a prescription for a diuretic? * Lima Abdi - 12/16/2024 1:32 PM EST The patients radha called, the patients swelling has gotten significantly worse since his appointment. He is now swollen up to both knees and the bottom of his legs are very hard. Please call her back at [phone]. documented in this encounter Plan of Treatment Upcoming Encounters Date Type Department Care Team (Late st Contact Info) Description 03/08/2025 1:10 PM EDT Office Visit [facility] [address] [place] [address] Dr Rodriguez [address] [place] [address] Shahid Ramos NP [address] [place] [address] Dr Gross [address] [place] [address] Scheduled Orders Name Type Priority Associated Diagnoses Orde r Schedule Basic metabolic panel Lab Routine Edema, unspecified type Expected: 12/23/2024, Expires: 12/16/2025 documented as of this encounter Visit Diagnoses Diagnosis Edema, unspecified type- Primary documented in this encounter Discontinued Medications Medication Sig Discontinue Reason Start Date End Da te nitroglycerin (NITROSTAT) 0.[address] 1 tablet (0.4 mg total) under the tongue every 5 (five) minutes if needed for chest pain. Reorder 12/16/2024 documented as of this encounter Care Teams Futures Trader Relationship Specialty Start Date End Date Cj Barber DO [address] [place] [phone] PCP - General 04/21/13 documented as of this encounter
--- OUTSIDE RECORDS SUMMARY | 2024-12-30 15:07 | XMS_ITS | Clinical Summary ---
Author Organization [facility] Address [address] [place] [address] Phone Care Team Providers Care Program Director Air Talent Name Role Phone Cj Barber DO Primary Care Provider [phone] Allergies No known active allergies Medications Medication Sig Dispensed Refills Start Date End Date Status aspirin 81 mg EC tablet Take 1 tablet (81 mg total) by mouth 1 (one) time each day. Active atorvastatin (LIPITOR) 80 mg tablet Take 1 tablet (80 mg total) by mouth. Active metoprolol succinate (TOPROL-XL) 25 mg 24 hr tablet Take 1 tablet (25 mg total) by mouth. Active finasteride (PROSCAR) 5 mg tablet Take 1 tablet (5 mg total) by mouth 1 (one) time each day. Do not crush, chew, or split. Active tamsulosin (FLOMAX) 0.4 mg 24 hr capsule Take 1 capsule (0.4 mg total) by mouth 1 (one) time each day with breakfast. Capsules should be taken 30 minutes following the same meal each day. Active nitroglycerin (NITROSTAT) 0.[address] 1 tablet (0.4 mg total) under the tongue every 5 (five) minutes if needed for chest pain. Up to 3 doses/15 minutes. If chest pain is not relieved 5 minutes after the second dose, take a third dose and call 9-1-1. 25 tablet 1 12/16/2024 Active furosemide (LASIX) 20 mg tablet Take 1 tablet (20 mg total) by mouth 1 (one) time each day. 90 tablet 12/16/2024 Active isosorbide mononitrate (IMDUR) 30 mg 24 hr tablet Take 1 tablet (30 mg total) by mouth 1 (one) time each day. Do not crush or chew. 90 tablet 2 12/28/2024 Active isosorbide mononitrate (IMDUR) 30 mg 24 hr tablet Take 1 tablet (30 mg total) by mouth 1 (one) time each day. Do not crush or chew. 12/28/2024 Discontinued (Reorder) nitroglycerin (NITROSTAT) 0.[address] 1 tablet (0.4 mg total) under the tongue every 5 (five) minutes if needed for chest pain. 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 He has not had overt angina until quite recently, coincident with interruption of aspirin and a concomitant urinary tract [...] Orders: ECG 12 lead Dyspnea on exertion 06/11/2022 Assessment & Plan (11/30/2024 12:28 PM EST): Chronic stable exertional dyspnea does not appear to be due to coronary disease or left ventricular dysfunction. Orders: ECG 12 lead Encounters Date Type Department Care Team Description 12/30/2024 Telephone [facility] [address] [place] [address] La Nena Syed MD Leg Swelling (/) 12/23/[address] [facility] [address] [place] [address] La Nena Syed MD OTHER 12/17/2024 Lab Requisition [facility] - Main Lab [address] [facility] [place] [address] Horace Gu MD Urinary tract infection, site not specified 12/16/[address] [facility] [address] [facility] [address] [place] [address] La Nena Syed MD Foot Swelling (And leg); Increased Edema 11/30/2024 11:20 AM EST Office Visit [facility] [address] [place] [address] La Nena Syed MD Coronary artery disease involving siletz tribe coronary artery of siletz tribe heart without angina pectoris (Primary Dx); Dyspnea on exertion; Hypercholesterolemia 11/25/[address] [facility] [address] [place] [address] La Nena Syed MD Foot Swelling 11/18/2024 Telephone [facility] [address] [place] [address] Makeda Molina NP 11/12/[address] [facility] [address] [place] [address] Shahid Ramos NP 11/05/[address] [facility] [address] [place] [address] La Nena Syed MD Appointment from Last 3 Months Social History Tobacco Use Types Packs/Day Years [...] file Not on file Not on file Obstetrics History Last Filed Vital Signs Vital Sign Reading [...] Mass Index 24.68 11/30/2024 11:07 AM EST Plan of Treatment Upcoming Encounters Date Type Department Care Team (Late st Contact Info) Description 03/08/2025 1:10 PM EDT Office Visit [facility] [address] [place] [address] Dr Rodriguez [address] [place] [address] Shahid Ramos NP [address] [place] [address] Dr Gross [address] [place] [address] Health Maintenance Due Date Last Done Comments DTaP,Tdap,and Td Vaccines (1 - Tdap) 1958 Zoster Vaccines (1 of 2) 1989 RSV Immunization Patients 60 + Years Old (1 - 1-dose 75+ series) 2014 Pneumococcal Vaccine: 65+ Years (2 of 2 - PPSV23 or PCV20) 04/23/2018 04/23/2017 Cholesterol Screening (Lipid Panel) 11/07/2022 Depression Screening 11/07/2022 Falls Risk Assessment 11/07/2022 Medicare Annual Wellness Visit 11/07/2022 Social Influencers of Health Screening 11/07/2022 Hypertension/CHF/CAD Annual BMP Blood Test 12/24/2023 COVID-19 Vaccine ( - 2023-2 5 season) 2024 11/23/2021, 01/29/2021, 01/08/2021 Influenza Vaccine Completed 11/16/2024 HIB Vaccines Aged Out No longer eligi ble based on patient's age to complete this topic HPV Vaccines Aged Out No longer eligi ble based on patient's age to complete this topic Hepatitis A Vaccines Aged Out No long er eligible based on patient's age to complete this topic Hepatitis B Vaccines Aged Out No long er eligible based on patient's age to complete this topic IPV Vaccines Aged Out No longer eligi ble based on patient's age to complete this topic MMR Vaccines Aged Out No longer eligi ble based on patient's age to complete this topic Meningococcal ACWY Vaccine Aged Out N o longer eligible based on patient's age to complete this topic RSV Immunization Patients Under 20 months Aged Out No longer eligible b ased on patient's age to complete this topic Varicella Vaccines Aged Out No longer eligible based on patient's age to complete this topic Procedures Procedure Name Priority Date/Time Associated Diagnosis Comments CULTURE URINE Routine 12/17/2024 12:00 AM EST Urinary tract infection, site not specified ECG 12-LEAD Routine 11/30/2024 11:15 AM EST Coronary artery disease involving siletz tribe coronary artery of siletz tribe heart without angina pectoris Dyspnea on exertion EXTERNAL ECHO Routine 11/15/2024 9:52 AM EST from Last 3 Months Results * (ABNORMAL) Culture urine (12/17/2024 12:00 AM EST) Culture, Urine >100,000 CFU/mL Proteus mirabilis(A ) BAUDILIO 12/19/2024 7:46 AM EST [facility] Comment: Edited result: Previously reported as Proteus species on 12/18/2024 at 1329 EST. Urine Urine specimen obtained by clean catch procedure / Unknown 12/17/2024 12/17/2024 6:23 PM EST Narrative Organism Antibiotic Method Susceptibility Proteus mirabilis Ampicillin/Sulbactam BAUDILIO <=2 ug/ml: Susceptible Proteus mirabilis Piperacillin/Tazobactam BAUDILIO <=4 ug/ml: Susceptible Proteus mirabilis Cefazolin (Urine) BAUDILIO 4 ug/ml: Susceptible Proteus mirabilis Cefoxitin BAUDILIO 8 ug/ml: Susceptible Proteus mirabilis Ceftazidime BAUDILIO <=0.5 ug/ml: Susceptible Proteus mirabilis Ceftriaxone BAUDILIO <=0.25 ug/ml: Susceptible Proteus mirabilis Cefepime BAUDILIO <=0.12 ug/ml: Susceptible Proteus mirabilis Meropenem BAUDILIO 0.5 ug/ml: Susceptible Proteus mirabilis Amikacin BAUDILIO 4 ug/ml: Susceptible Proteus mirabilis Gentamicin BAUDILIO <=1 ug/ml: Susceptible Proteus mirabilis Ciprofloxacin BAUDILIO <=0.06 ug/ml: Susceptible Proteus mirabilis Levofloxacin BAUDILIO <=0.12 ug/ml: Susceptible Proteus mirabilis Nitrofurantoin BAUDILIO 128 ug/ml: Resistant Proteus mirabilis Trimethoprim/Sulfamethoxazole BAUDILIO <=20 ug/ml: Susceptible Horace Gu MD LAB MICROBIOLOGY - G ENERAL ORDERABLES Performing Organization Address [facility] Co de Phone Number [facility] [address] [place] [address], * ECG 12 lead (11/30/2024 11:15 AM EST) Ventricular Rate ECG 70 BPM GEMUSE Atrial Rate 70 BPM GEMUSE P-R Interval 140 ms GEMUSE QRS Duration 90 ms GEMUSE Q-T Interval 374 ms GEMUSE QTc 403 ms GEMUSE P Wave [place] -6 degrees GEMUSE R [place] 23 degrees GEMUSE T [place] 18 degrees GEMUSE ECG Interpretation Normal sinus rhythm Normal ECG No previous ECGs available Confirmed by LA NENA SYED ([id number]) on 11/30/2024 11:32:37 AM GEMUSE 11/30/2024 11:1 5 AM EST 11/30/2024 11:32 AM EST La Nena Syed MD ECG ORDERABLES Performing Organization Address City/[facility] Co de Phone Number GEMUSE * External Echo (11/15/2024 9:52 AM EST) Anatomical Region Laterality Modality Ultrasound Historical Provider MD CATES ECHO PROCEDURE S from Last 3 Months Care Teams Program Director Air Talent Relationship Specialty Start Date End Date Cj Barber DO [address] [place] [phone] PCP - General 04/21/13
--- OUTSIDE RECORDS SUMMARY | 2024-12-30 15:07 | XMS_ITS | Encounter Summary ---
Author Organization [facility] Address [address] [place] [address] Care Team Providers Care Direct Service Worker Name Role Phone Cj Barber DO Primary Care Provider [phone] Reason for Visit * Reason Onset Date Comments Foot Swelling 11/25/2024 Encounter Details Date Type Department Care Team ([facility] st Contact Info) Description 11/25/2024 Telephone [facility] Cardiology [address] [phone] Mg Candelario MD [address] [place] [address],[address] [address] Foot Swelling Social History Tobacco Use Types Packs/Day Years [...] on file documented as of this encounter Progress Notes * Evelyn Hendricks RN - 11/30/2024 8:25 AM EST Pt's , Judith, was transferred [place] [facility]. She is aware pt should hold his Amlodipine andaware of 11:[address] Candelario today. She did not have any additional questions. * Paula Smyth NP - 11/30/2024 8:24 AM EST All set. * Paula Smyth NP - 11/26/2024 11:49 AM EST Start with conservative measures- as you instructed; elevating legs above the level of his heart and should wear compression stocking or wraps. With trying this; if he experiences worsening swelling he should call us as and we could trial stopping the amlodipine and restarting lisinopril. * Rebecca Johnson RN - 11/26/2024 10:05 AM EST I spoke with pt/ this morning. He was discharged from [facility] on 11/18/24 s/p NSTEMI, UTI with sepsis, urinary catheter in place, DC summary is scanned in for review. They report since discharge both his feet/ankles have been swollen, to the point he cannot put on his shoes. He has not had any shortness of breath and he does not own a scale. He has been sleeping on the couch with his feet dependant since he was discharged due to the catheter. He just purchased arecliner. He has VNA services and I am told his BP this morning was perfect . Otherwise they do not monitor at home. Denies increased sodium. I discussed possible causes for edema, including sleeping with feet dependant and IV fluids administered during his hospitalization. He was also started on amlodipine 5 mg daily. I encouraged him to keep his feet elevated as much as possible at the level of the heart. I recommended adding pillows to his recliner footstool to achieve this as the recliner is not likely to bring his legs up high enough to help. He does have a HFU/pre-op apt on 11/30/[address] Candelario. Do you have any further recommendations in interim? * Rebecca Johnson RN - 11/25/2024 11:35 AM EST Left VM to call back * Lima Jin - 11/25/2024 11:13 AM EST The patients Judith called, he was recently discharged from [facility] and has a follow up appointment on 11/30/24. He has developed swelling in both his feet. It has gotten so bad that he can not put on his shoes. Please call him back at [phone]. documented in this encounter Plan of Treatment Upcoming Encounters Date Type Department Care Team (Late st Contact Info) Description 03/08/2025 1:10 PM EDT Office Visit [facility] [address] [place] [address] Dr Rodriguez [address] [place] [address] Shahid Ramos NP [address] [place] [address] Dr Gross [address] [place] [address] documented as of this encounter Visit Diagnoses Not on filedocumented in this encounter Care Teams Direct Service Worker Relationship Specialty Start Date End Date Cj Barber DO [address] [place] [phone] PCP - General 04/21/13 documented as of this encounter
--- OUTSIDE RECORDS SUMMARY | 2024-12-30 15:07 | XMS_ITS | Encounter Summary ---
Author Organization [facility] Address [address] [place] [address] Care Team Providers Care Appellate Law Clerk Name Role Phone Cj Barber DO Primary Care Provider [phone] Encounter Details Date Type Department Care Team (Late Contact Info) Description 12/17/2024 Lab Requisition [facility] - Main Lab [address] [facility] [place] [phone] Horace Gu MD [address] [facility] [address] [place] [phone] Urinary tract infection, site not specified Social History Tobacco Use Types Packs/Day Years [...] on file documented as of this encounter Plan of Treatment Upcoming Encounters Date Type Department Care Team (Late Contact Info) Description 03/08/2025 1:10 PM EDT Office Visit [facility] - [facility] [address] [place] [address] Shahid Ramos NP [address] [place] [address] Dr Gross [address] [place], [place] [phone] documented as of this encounter Procedures Procedure Name Priority Date/Time Associated Diagnosis Comments CULTURE URINE Routine 12/17/2024 12:00 AM EST Urinary tract infection, site not specified documented in this encounter Results * (ABNORMAL) Culture urine (12/17/2024 12:00 AM EST) Culture, Urine >100,000 CFU/mL Proteus mirabilis(A ) BAUDILIO 12/19/2024 7:46 AM EST [facility] Comment: Edited result: Previously reported as [...] MD LAB MICROBIOLOGY - G ENERAL ORDERABLES [facility] [address] [place] [address], documented in this encounter Visit Diagnoses Diagnosis Urinary tract infection, site not specified documented in this encounter Care Teams Appellate Law Clerk Relationship Specialty Start Date End Date Cj Barber DO [address] [place] [phone] PCP - General 04/21/13 documented as of this encounter
--- OUTSIDE RECORDS SUMMARY | 2024-12-30 15:07 | XMS_ITS | Encounter Summary ---
Author Organization [facility] Address [address] [place] [address] Care Team Providers Care Policy Issue Clerk Name Role Phone Cj Barber DO Primary Care Provider [phone] Reason for Visit * Reason Onset Date Comments OTHER 12/23/2024 Encounter Details Date Type Department Care Team ([facility] Contact Info) Description 12/23/2024 Telephone [facility] Cardiology [address] [address] Mg Candelario MD [address] [place] [address],[address] [address] OTHER Social History Tobacco Use Types Packs/Day Years [...] Dispensed Refills Start Date End Da te isosorbide mononitrate (IMDUR) 30 mg 24 hr tablet Take 1 tablet (30 mg total) by mouth 1 (one) time each day. Do not crush or chew. 90 tablet 2 12/28/2024 documented in this encounter Progress Notes * Evelyn Hendricks RN - 12/28/2024 10:43 AM EST Judith informed of the below information from Dr. Candelario and voiced understanding. She also mentioned pt needs refills sent for Isosorbide Mononitrate 30 mg daily. Refills sent to preferred pharmacy. RUBIO 11/30/24. * Aly Burns - 12/28/2024 10:19 AM EST Patient's Judith called back. Please return her call at your earliest conveniences. * Evelyn Hendricks RN - 12/28/2024 8:58 AM EST I left a message on machine for call back. * Aly Burns - 12/23/2024 1:36 PM EST Patient's Judith calling to ask if someone can confirm if her had a heart attack during his time in [facility] from 11/14/24-11/18/24. She was under the impression after speaking to Dr Candelario that her did not have a heart attack. A nurse Named Toya hernandez at [facility] had said differently from her reports and now Judith would like to have a clear answer. AARONLydiaJudith also wanting to let Dr Candelario know the neck surgery is scheduled on 01/07/[address] Barraza. documented in this encounter Plan of Treatment Upcoming Encounters Date Type Department Care Team (Late st Contact Info) Description 03/08/2025 1:10 PM EDT Office Visit [facility] [address] [place] [phone] Shahid Ramos NP [address] [place] [address] Dr Gross [address] [place] [address] documented as of this encounter Visit Diagnoses Not on filedocumented in this encounter Discontinued Medications Medication Sig Discontinue Reason Start Date End Da te isosorbide mononitrate (IMDUR) 30 mg 24 hr tablet Take 1 tablet (30 mg total) by mouth 1 (one) time each day. Do not crush or chew. Reorder 12/28/2024 documented as of this encounter Care Teams Policy Issue Clerk Relationship Specialty Start Date End Date Cj Barber DO [address] [place] [phone] PCP - General 04/21/13 documented as of this encounter
--- OUTSIDE RECORDS SUMMARY | 2024-12-30 15:07 | XMS_ITS | Encounter Summary ---
Author Organization [facility] Address [address] [place] [address] Care Team Providers Care Manager Endoscopy Name Role Phone Cj Barber DO Primary Care Provider [phone] Reason for Visit * Reason Onset Date Comments Leg Swelling 12/30/2024 Encounter Details Date Type Department Care Team ([facility] st Contact Info) Description 12/30/2024 Telephone [facility] Cardiology [address] [place] [phone] Mg Candelario MD [address] [place] [address],[address] [id number] Leg Swelling (/) Social History Tobacco Use Types Packs/Day Years [...] as of this encounter Progress Notes * Susan Lino MA - 12/30/2024 2:39 PM EST I called Judith and advised as below, she stated I did not need to fax the lab order as she has found the order and will be taking Gordo to get these labs done * ALY Stewart - 12/30/2024 2:24 PM EST He can try increasing Lasix to 40 mg daily. Increase potassium rich foods. If no improvement of hisweights or symptoms he will need to go to the ER for further evaluation. He should have labs that were ordered completed. Call on Friday with update to his careteam * Susan Lino MA - 12/30/2024 2:11 PM EST I spoke to Judith the pts based on instructions given previously my AG,RN per [facility]unfortunately she has not kept up with daily wts but tells me on the November he was 164.6 and today he is weighing 170.2--bp average 112/70's and she doesn't recall hr as she is not recording this , its word of mouth via OT who comes weekly--pts urinary output is good, he gets dizzy and lightheaded on occasions, his stomach is not bloated, he does state that the swelling is above his knees, he is SOB particularly at night when he lays down for the night. He is not having any dietary indiscretions, cooks all fresh. He has not had any recent illnesses and has been compliant with all meds, hetakes furosemide 20 mg daily and has not skipped doses. Unfortunately they forgot to go for the blood work that was ordered, I expressed the importance of this and has asked me to fax the order to a lab through [facility] which is located on [facility] in [place]. She is looking to see if his diuretic could be increased until swelling comes down. (See encounter 12/16/24) * Mya Joseph - 12/30/2024 1:55 PM EST Patient Judith called, stating the patient has swelling in his legs up to his knees. She states he has had leg swelling since Ahmet and it has been progressively moving up his leg to his knee as of today. She is concerned and would like to know if he should up his dosage on his water pill. Please give her a call back at [phone]. documented in this encounter Plan of Treatment Upcoming Encounters Date Type Department Care Team (Late st Contact Info) Description 03/08/2025 1:10 PM EDT Office Visit [facility] [address] [place] [address] Dr [address] [place] [phone] Shahid Ramos NP [address] [place] [address] Dr [address] [place] [address] documented as of this encounter Visit Diagnoses Not on filedocumented in this encounter Care Teams Manager Endoscopy Relationship Specialty Start Date End Date Cj Barber DO [address] [place] [phone] PCP - General 04/21/13 documented as of this encounter
[2024-12-30 16:09] LABS: Anion Gap 11 (12-20); Blood Urea Nitrogen 14 mg/dL (9-16); Calcium 8.7 mg/dL (8.4-10.2); Carbon Dioxide 28 mmol/L (22-29); Chloride 103 mmol/L (96-108); Estimated Glomerular Filt Rate > 60; Glucose Random 103 mg/dL (60-115); Potassium 3.9 mmol/L (3.3-5.1); Sodium 138 mmol/L (135-145)
== END 2024-12-30 15:05 | disposition home or self-care (01) ==
LOC: HO.HMGCLDS 15:04
PROVIDERS: PCP Internal Medicine; Visit Provider Nurse Practitioner Acute Care
DX: R60.9 Edema, unspecified (principal)
CPT/HCPCS: 36415; 80048

== ENCOUNTER 2025-01-31 09:52 | Outpatient (AMB) | payer MEDICARE, SELFPAY ==
--- NOTE | 2025-01-31 09:52 | A.OFFPC_ITS ---
Vital Signs 01/31/25 09:58 Height 5 ft 4.75 in Weight 166 lb BMI 27.8 BP 102/50 L Blood Pressure Location Rt brachial Pulse 66 Pulse Source Pulse Oximeter Temp 97.2 F Pulse Oximetry (%) 97 Intake Visit Reasons: f/u hospital discharge 01/22 Intake Note: sore on botton of back General Neurologist Required: No Oracle Application Consultant: Not Required per policy Accompanied by: Self / Same As Patient Allergies No Known Allergies [No Known Allergies*] Allergy (Verified 01/31/25 10:08) Medication List - Last Reconciled 01/31/25 by Haritha Ni PA-C aspirin 81 mg PO DAILY atorvastatin 80 mg PO DAILY finasteride 5 mg PO DAILY isosorbide mononitrate ER 30 mg PO DAILY lisinopril 5 mg PO DAILY metoprolol succinate ER 25 mg PO DAILY nitroglycerin 0.4 mg sublingual Q5M PRN tamsulosin 0.4 mg PO BEDTIME timolol maleate 0.5% 0 drps ophthalmic (eye) [facility] Medical History (Updated 01/31/25 @ 11:25 by Haritha Ni PA-C) Hospital discharge follow-up Dyspnea on exertion Vitamin D deficiency Vasovagal syncope Elevated PSA GERD (gastroesophageal reflux disease) Mild hypercholesterolemia Hypertension Coronary artery disease Walker as ambulation aid BPH (benign prostatic hyperplasia) Indwelling Nolan catheter calcification UTI (urinary tract infection) NSTEMI (non-ST elevated myocardial infarction) 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 Care Plan Goal for BP management: <130/80; patient to continue previously prescribed medications as prescribed and follow-up with cardiology as scheduled BMI result Body Mass Index 27.8 BMI Assessment/Plan discussion: High BMI High, discussed plan: lifestyle, weight reduction, dietary, physical activity and alcohol moderation Tobacco/Smoking Status: Tobacco use Status Patient Tobacco Use Status Former Tobacco user 01/31/25 09:54 Coding Level of Care Code Est Pt Level 4 (13047) Complex EM visit Add On G2211 Diagnoses Stenosis of cervical spine with myelopathy M48.02; G99.2 NSTEMI (non-ST elevated myocardial infarction) I21.4 UTI (urinary tract infection) N39.0 Indwelling Nolan catheter calcification T83.89XA BPH (benign prostatic hyperplasia) N40.0 Decubitus ulcer of coccyx, stage 2 L89.152 Walker as ambulation aid Z99.89 Coronary artery disease I25.10 Hypertension I10 Mild hypercholesterolemia E78.00 GERD (gastroesophageal reflux disease) K21.9 Elevated PSA R97.20 Vasovagal syncope R55 Vitamin D deficiency E55.9 Dyspnea on exertion R06.09 History of PTCA Z98.61 Hospital discharge follow-up Z09 Assessment & Plan Assessment & Plan (1) Stenosis of cervical spine with myelopathy: Comment: s/p C3/4, C4/5 anterior cervical discectomy and fusion with auto and although graft and plating at [facility] 01/11/25 Code(s): M48.02 - Spinal stenosis, cervical region; G99.2 - Myelopathy in diseases classified elsewhere Category: Medical Plan: Neck brace in place. Patient has follow-up on 02/07/2025 with neurosurgery at [facility] [address] [place] [address] drive. Condition is chronic and stable continue to monitor. (2) NSTEMI (non-ST elevated myocardial infarction): Comment: On 12/2024 at [facility] on 81 mg of aspirin daily Code(s): I21.4 - Non-ST elevation (NSTEMI) myocardial infarction Category: Medical Plan: Patient currently being followed by cardiology and has follow-up in place. Patient currently taking 81 mg of aspirin, 80 mg of Lipitor, 30 mg of extended release I ordered a sore mononitrate, 25 mg of metoprolol extended release, nitroglycerin 0.4 mg sublingual as needed. Condition is chronic and stable continue to monitor. (3) UTI (urinary tract infection): Code(s): N39.0 - Urinary tract infection, site not specified Category: Medical Plan: Patient has Nolan catheter in place. Has Urology appointment at [facility] this Friday02/02/2025. Patient denies any urological complaints. Condition is chronic and stable continue to monitor. (4) Indwelling Nolan catheter calcification: Code(s): T83.89XA - Other specified complication of genitourinary prosthetic devices, implants and grafts, initial encounter Category: Medical Plan: Patient has Nolan catheter in place. Has Urology appointment at [facility] this Friday02/02/2025. Patient denies any urological complaints. Condition is chronic and stable continue to monitor. (5) BPH (benign prostatic hyperplasia): Code(s): N40.0 - Benign prostatic hyperplasia without lower urinary tract symptoms Category: Medical Plan: Patient has Nolan catheter in place. Has Urology appointment at [facility] this Friday02/02/2025. Patient denies any urological complaints. Currently on tamsulosin 0.4 mg daily along with finasteride 5 mg daily. Condition is chronic and stable continue to monitor. (6) Decubitus ulcer of coccyx, stage 2: Code(s): L89.152 - Pressure ulcer of sacral region, stage 2 Category: Medical Plan: Stage II decubitus ulcer of coccyx. No signs of infection. Will refer to wound clinic. Will refer to VNA and WAREHOUSE PULLER services. Instructed patient to roho or donut cushion for offloading. Condition is chronic and stable continue to monitor. (7) Walker as ambulation aid: Code(s): Z99.89 - Dependence on other enabling machines and devices Category: Medical Plan: Patient to continue utilizing walker for ambulation. Patient to continue neck brace. Patient to continue PT and OT services. Condition is chronic and stable continue to monitor. (8) Coronary artery disease: Comment: s/p stenting many years ago Code(s): I25.10 - Atherosclerotic heart disease of [place] coronary artery without angina pectoris Category: Medical Plan: Patient currently being followed by cardiology and has follow-up in place. Patient currently taking 81 mg of aspirin, 80 mg of Lipitor, 30 mg of extended release I ordered a sore mononitrate, 25 mg of metoprolol extended release, nitroglycerin 0.4 mg sublingual as needed. Condition is chronic and stable continue to monitor. (9) Hypertension: Code(s): I10 - Essential (primary) hypertension Category: Medical Plan: Patient currently being followed by cardiology and has follow-up in place. Patient currently taking 81 mg of aspirin, 80 mg of Lipitor, 30 mg of extended release I ordered a sore mononitrate, 25 mg of metoprolol extended release, nitroglycerin 0.4 mg sublingual as needed. Condition is chronic and stable continue to monitor. (10) Mild hypercholesterolemia: Code(s): E78.00 - Pure hypercholesterolemia, unspecified Category: Medical Plan: Patient currently being followed by cardiology and has follow-up in place. Patient currently taking 81 mg of aspirin, 80 mg of Lipitor, 30 mg of extended release I ordered a sore mononitrate, 25 mg of metoprolol extended release, nitroglycerin 0.4 mg sublingual as needed. Condition is chronic and stable continue to monitor. (11) GERD (gastroesophageal reflux disease): Code(s): K21.9 - Gastro-esophageal reflux disease without esophagitis Category: Medical Plan: Condition is chronic and stable continue to monitor. (12) Elevated PSA: Code(s): R97.20 - Elevated prostate specific antigen [PSA] Category: Medical Plan: Patient has Nolan catheter in place. Has Urology appointment at [facility] this Friday02/02/2025. Patient denies any urological complaints. Currently on tamsulosin 0.4 mg daily along with finasteride 5 mg daily. Condition is chronic and stable continue to monitor. (13) Vasovagal syncope: Code(s): R55 - Syncope and collapse Category: Medical Plan: Patient currently being followed by cardiology and has follow-up in place. Patient currently taking 81 mg of aspirin, 80 mg of Lipitor, 30 mg of extended release I ordered a sore mononitrate, 25 mg of metoprolol extended release, nitroglycerin 0.4 mg sublingual as needed. Condition is chronic and stable continue to monitor. (14) Vitamin D deficiency: Code(s): E55.9 - Vitamin D deficiency, unspecified Category: Medical Plan: Condition is chronic and stable continue to monitor. (15) Dyspnea on exertion: Code(s): R06.09 - Other forms of dyspnea Category: Medical Plan: Condition is chronic and stable continue to monitor. (16) History of PTCA: Code(s): Z98.61 - Coronary angioplasty status Category: Surgical Plan: Patient currently being followed by cardiology and has follow-up in place. Patient currently taking 81 mg of aspirin, 80 mg of Lipitor, 30 mg of extended release I ordered a sore mononitrate, 25 mg of metoprolol extended release, nitroglycerin 0.4 mg sublingual as needed. Condition is chronic and stable continue to monitor. (17) Hospital discharge follow-up: Code(s): Z09 - Encounter for follow-up examination after completed treatment for conditions other than malignant neoplasm Category: Medical Plan Plan Patient was informed and verbally consented to the use of an ambient scribe for clinic note documentation during this visit. 1. Urinary Tract Infection Secondary To Enlarged Prostate Management includes maintaining catheter use under supervision and pending urology appointment to discuss further intervention. 2. NSTEMI Continue cardiac monitoring and medication adherence, ensuring prompt medical attention for symptomatic concerns. 3. Stage Ii Pressure Ulcer Employ strategies for pressure relief, utilize recommended ointments, and consult wound care specialists for further evaluation to deter further skin breakdown. 4. Spinal stenosis, cervical region Post-surgery, continue rehabilitation efforts and plan for follow-up with neurosurgery to monitor recovery status. 5. Coronary Artery Disease Continue aspirin therapy, and monitor for symptoms suggestive of cardiac issues. Keep up regular cardiovascular evaluations. Discussion Notes During our consultation, I reviewed the patient's recent health developments, including the cervical stenosis surgery and coronary artery disease management. We discussed the importance of ongoing rehabilitation through PT and OT for strength and mobility improvement. The surgical outcomes and next steps in follow-up with neurosurgery and urology were covered. Concerns of sediment in the urinary catheter and raised risk of infection were addressed, with recommendations provided to follow up with urology for potential prostate management. We explored the importance of pressure ulcer management, suggesting supportive devices like a Roho cushion to mitigate further skin degradation. Provided reassurance while stressing monitoring for any symptoms, particularly given past cardiovascular events, calling for vigilance in observing any unusual symptoms. Orders: Orders Comprehensive Met. Panel Today Z00.00 - Encounter for general adult medical examination without abnormal findings Magnesium Today Z00.00 - Encounter for general adult medical examination without abnormal findings TSH reflex Free T4 Today Z00.00 - Encounter for general adult medical examination without abnormal findings Vitamin B12 and Folate Today Z00.00 - Encounter for general adult medical examination without abnormal findings Vitamin B1 Today Z00.00 - Encounter for general adult medical examination without abnormal findings Complete Blood Count Auto Diff Today Z00.00 - Encounter for general adult medical examination without abnormal findings Liver Panel Today Z00.00 - Encounter for general adult medical examination without abnormal findings Vitamin D 25-OH Total Today Z00.00 - Encounter for general adult medical examination without abnormal findings C Reactive Protein Today Z00.00 - Encounter for general adult medical examination without abnormal findings Referrals Wound Care Referral L89.152 - Pressure ulcer of sacral region, stage 2 Scribe Plan - Not visible on output: History of Present Illness The patient is an 84-year-old male presenting for a hospital discharge follow-up after recent cervical spine surgery. The surgery was for cervical stenosis with myelopathy, characterized by gait instability and arm weakness, and was conducted following a history of coronary artery disease and a recent N-STEMI. He has been on aspirin therapy. Postoperatively, he suffered from urinary tract infection due to an enlarged prostate, which required Nolan catheterization. He was then discharged home on 01/14/2025 from [facility] to [facility] rehab where he received PT and OT. He has been home since 01/25/2025. At home, he engages with PT and OT for rehabilitation and reported a fall due to instability; no further incidents of acute weakness or dizziness were noted. Additionally, a pressure ulcer at the base of his spine requires further management to prevent worsening. Upcoming follow-ups with specialized services h marcioe been scheduled to continue monitoring his recovery. Discharged to/Current Location: [facility] rehab. Then was discharged from [facility]hab on 01/25/2025 Lives with: and Step-Son Diagnosis: Cervical stenosis with myelopathy Procedures performed: status post C3/4, C4/5 anterior cervical discectomy and fusion with auto and allograft and plating New medications: Isosorbide mononitrate extended release 30 mg, tamsulosin 0.4 mg orally as needed, tamsulosin 0.4 mg daily, finasteride 5 mg daily Discontinued medications: No discontinued medications Change medications/dosing: No changes in dosing Pending labs: No pending lab Pending diagnostic test: No pending diagnostic test Any Follow-up Labs required? No follow-up labs required although will obtain CBC, CMP to evaluate patient's kidney function and other labs after hospital discharge and jail dyspnea Any Follow-up Diagnostic test required? No follow-up diagnostic test required at this time How are you feeling? Patient reports he is feeling okay only discomfort is on his buttocks. Are you in any pain or discomfort? Sore on buttocks where he is applying triad Do you have any questions about your condition or discharge instructions? Patient did not have any questions about his medical condition or discharge instruction Were you able to get your medications filled? Patient was able to get all his medications filled Do you have any questions about your medications? Patient did not have any questions about his medications at this time Any referrals required? Patient requesting VNA services and WAREHOUSE PULLER services. Were you able to schedule your follow-up appointment? Yes with Cardiology, Neurosurgery and Neurology along with PCP follow-up If home health was ordered, have they contact you? Home health was not ordered and patient interested in home health services. Any outpatient services, if so, are you scheduled? PT and OT was ordered and OT started last week. PT starts this week. Are there any additional resources like transportation you might need during her recovery? No transportation - VNA? They are interested in VNA services although they are unsure if a referral was placed. - WAREHOUSE PULLER? They are interested in WAREHOUSE PULLER services although they are unsure for referral was placed - Meals on wheels? [employer] only two weeks per and she is unsure if they are continuing this although she would like them to continue these meals. Educational need/resources: No What support system do you have? , Step-Son, and Son who lives next door, Other Step-Son lives 4 houses down Social History - Resides at home with and stepson - Stepsons live nearby for support - Currently attends rehabilitation services (PT and OT) - Utilizes assistance and meals on wheels service for food provision - Doesn?t require further home help beyond what is provided and managed by family Review of Systems - Neurological: Reports unsteadiness and arm weakness; denies recent dizziness or new weakness - Dermatological: Reports pressure ulcer at base of spine; denies pain - Urogenital: Reports urinary catheter with sediment presence; denies pain, confusion, or additional symptoms Physical Exam Appearance: Alert. Oriented X3. No acute distress. Head: Normal external exam. Normocephalic. Atraumatic. Eyes: Pupils are equal, round, and reactive to light. Extraocular movements intact. Conjunctiva and sclera normal. Eyelids normal. Ears: External auditory canal normal. Tympanic membranes normal. Throat: Pharynx normal. Uvula midline. Moist mucous membranes. Neck: Normal inspection. Neck brace in place. No signs of infection. Cardiovascular: Normal heart rate and rhythm. Heart sound normal. Respiratory: No respiratory distress. Painless inspiration. Abdomen: Soft and nontender. No organomegaly noted. No visible injury noted. Nolan catheter urine appears to have sediment. Back: No costovertebral angle tenderness. Full range of motion noted. Skin: Skin warm and dry. Normal skin color. Normal skin turgor. No rashes/lesions/lacerations noted. Stage II pressure ulcer noted at the base of the back. Extremities: No lower extremity edema. Extremities exhibit normal range of motion. Extremities nontender. Neuro: Oriented X 3. No obvious weakness noted on this exam. Patient utilizing walker without any difficulty. Results - Imaging: MRI showing C3-C4-C5 cervical stenosis with T2 signal change Plan Patient was informed and verbally consented to the use of an ambient scribe for clinic note documentation during this visit. 1. Urinary Tract Infection Secondary To Enlarged Prostate Management includes maintaining catheter use under supervision and pending urology appointment to discuss further intervention. 2. Myocardial infarction Continue cardiac monitoring and medication adherence, ensuring prompt medical attention for symptomatic concerns. 3. Stage Ii Pressure Ulcer Employ strategies for pressure relief, utilize recommended ointments, and consult wound care specialists for further evaluation to deter further skin breakdown. 4. Spinal stenosis, cervical region Post-surgery, continue rehabilitation efforts and plan for follow-up with neurosurgery to monitor recovery status. 5. Coronary Artery Disease Continue aspirin therapy, and monitor for symptoms suggestive of cardiac issues. Keep up regular cardiovascular evaluations. Discussion Notes During our consultation, I reviewed the patient's recent health developments, including the cervical stenosis surgery and coronary artery disease management. We discussed the importance of ongoing rehabilitation through PT and OT for strength and mobility improvement. The surgical outcomes and next steps in follow-up with neurosurgery and urology were covered. Concerns of sediment in the urinary catheter and raised risk of infection were addressed, with recommendations provided to follow up with urology for potential prostate management. We explored the importance of pressure ulcer management, suggesting supportive devices like a Roho cushion to mitigate further skin degradation. Provided reassurance while stressing monitoring for any symptoms, particularly given past cardiovascular events, calling for vigilance in observing any unusual symptoms. Patient Instructions - Continue physical therapy and home exercises as advised - Monitor for any new or worsening symptoms, especially those related to heart or surgical recovery - Observe pressure ulcer management instructions and use recommended ointments and cushions - Ensure urinary catheter drainage and hygiene, alerting healthcare providers if there are signs of infection - Attend upcoming follow-up appointments with neurosurgery, urology, and primary care - Maintain a list of medications and ensure refills are up-to-date - Seek immediate care if you experience falls, severe symptoms, or lack of catheter output
[2025-01-31 09:58] VITALS: BP 102/50; PULSE 66; TEMP 36.2; O2SAT 97; BMI 27.8
--- OUTSIDE RECORDS SUMMARY | 2025-01-31 10:47 | XMS_ITS | Clinical Summary ---
Author Organization [employer] [facility] Address [address] [place] [address] Phone Care Team Providers Care Barrel Waterer Name Role Phone Cj Barber DO Primary Care Provider [phone] Allergies No known active allergies Medications aspirin 81 mg EC tablet Take 1 [...] dose and call 9-1-1. 25 tablet 1 5 Active furosemide (LASIX) 20 mg tablet Take 1 tablet (20 mg total) by mouth 1 (one) time each day. 90 tablet 5 Active isosorbide mononitrate (IMDUR) 30 mg 24 hr tablet Take 1 tablet (30 mg total) by mouth 1 (one) time each day. Do not crush or chew. 90 tablet 2 Active Active Problems Problem Noted Date Diagnosed Date Hypercholesterolemia 11/30/2024 Assessment & Plan (11/30/2024 12:28 PM EST): Longstanding hypercholesterolemia has been treated with high-dose atorvastatin.` Mixed hyperlipidemia 07/24/2022 Coronary artery disease invo lving [place] coronary artery of [place] heart without angina pectoris 06/11/2022 Assessment & Plan (11/30/2024 12:28 PM EST): The patient has a history of circumflex stenting in 2003 and right coronary artery stenting in the setting of an inferior PA in 2011. He has not had overt [...] Encounters Date Type Department Care Team Description 01/25/2025 Lab Requisition [facility] - Main Lab [address] [place] [address] Fidencio Burroughs MD Encounter for other general examination 01/19/2025 Lab Requisition [facility] - Main Lab [address] [place] [phone] Fidencio Burroughs MD Encounter for other general examination 01/17/2025 Lab Requisition [facility] Main Lab [address] [place] [phone] Fidencio Burroughs MD Encounter for other general examination 01/15/2025 Lab Requisition [facility] Lab [address] [place] [phone] Fidencio Burroughs MD Encounter for other general examination 01/03/[address] [facility] [address] [place] [address] La Nena Syed MD Results 12/30/2024 [address]phone [facility] [address] [place] [address] La Nena Syed MD Leg Swelling (/) 12/23/2024 Telephone [facility] [address] [place] [address] La Nena Syed MD OTHER 12/17/2024 Lab Requisition [facility] Main Lab [address] [place] [phone] Horace Gu MD Urinary tract infection, site not specified 12/16/2024 Telephone [facility] [address] [place] [address] La Nena Syed MD Foot Swelling (And leg); Increased Edema 11/30/2024 11:20 AM EST Office Visit [facility] [address] [place] [address] La Nena Syed MD Coronary artery disease involving [place] coronary artery of [place] heart without angina pectoris (Primary Dx); Dyspnea on exertion; Hypercholesterolemia 11/25/2024 [address] [facility] [address] [place] [address] La Nena Syed MD Foot Swelling 11/18/2024 Telephone [facility] Cardiology [facility] [address] [place] [address] Makeda Molina NP 11/12/2024 Telephone [facility] [address] [place] [address] Shahid Ramos NP 11/05/2024 Telephone [facility] [address] [place] [address] La Nena Syed MD Appointment from Last 3 Months Social History Tobacco Use Types Packs/Day Years Used Date Smoking Tobacco: Former Smokeless Tobacco: Never Alcohol Use Standard Drinks/Week Comments Not Currently 0 (1 standard drink = 0.6 oz pur e alcohol) Sex and Gender Information Value Date Recorded Sex Assigned at Not on file Legal Sex Male 7:51 AM EST Gender Identity Not on file Sexual Orientation Not on file Obstetrics History Last Filed [...] Office Visit [facility] [address] [place] [address] Shahid Ramos NP [address] [place] [address] [address] [place] [address] Health Maintenance Due Date Last Done Comments DTaP,Tdap,and Td Vaccines (1 - Tdap) 1958 Zoster Vaccines (1 of 2) 1989 RSV Immunization Patients 60 + Years Old (1 - 1-dose 75+ series) 2014 Pneumococcal Vaccine: 50+ Years (2 of 2 - PPSV23) 04/23/2018 04/23/2017 Cholesterol Screening (Lipid Panel) 11/07/2022 Depression Screening 11/07/2022 Falls Risk Assessment 11/07/2022 Medicare Annual Wellness Visit 11/07/2022 Social Influencers of Health Screening 11/07/2022 COVID-19 Vaccine (4 - 2023-2 5 season) 2024 11/23/2021, 01/29/2021, 01/08/2021 Hypertension/CHF/CAD Annual BMP Blood Test 01/25/2026 01/25/2025, 01/19/2025, 01/15/2025 Influenza Vaccine Completed 11/16/2024 HIB Vaccines Aged [...] patient's age to complete this topic Meningococcal B Vacine Aged Out No lo nger eligible based on patient's age to complete this topic RSV Immunization Patients Under 20 months Aged Out No longer eligible b ased on patient's age to complete this topic Varicella Vaccines Aged Out No longer eligible based on patient's age to complete this topic Procedures Procedure Name Priority Date/Time Associated Diagnosis Comments COMPLETE BLOOD COUNT Routine 01/25/2025 7:02 AM EST Encounter for other general examination COMPREHENSIVE METABOLIC PANEL Routine 01/25/2025 7:02 AM EST Encounter for other general examination COMPLETE BLOOD COUNT Routine 01/19/2025 5:25 AM EST Encounter for other general examination COMPREHENSIVE METABOLIC PANEL Routine 01/19/2025 5:25 AM EST Encounter for other general examination URINALYSIS WITH REFLEX MICROSCOPIC AND CULTURE Routine 01/17/2025 4:00 AM EST Encounter for other general examination MCKEON URINE CULTURE TUBE Routine 01/17/2025 4:00 AM EST Encounter for other general examination URINALYSIS WITH REFLEX MICROSCOPIC AND CULTURE Routine 01/17/2025 4:00 AM EST Encounter for other general examination CULTURE URINE Routine 01/17/2025 4:00 AM EST Encounter for other general examination CBC WITH AUTO DIFFERENTIAL Routine 01/15/2025 6:39 AM EST Encounter for other general examination MAGNESIUM Routine 01/15/2025 6:39 AM EST Encounter for other general examination CBC AND DIFFERENTIAL Routine 01/15/2025 6:39 AM EST Encounter for other general examination COMPREHENSIVE METABOLIC PANEL Routine 01/15/2025 6:39 AM EST Encounter for other general examination CULTURE URINE Routine 12/17/2024 12:00 AM EST Urinary tract infection, site not specified ECG 12-LEAD Routine 11/30/2024 11:15 AM EST Coronary artery disease involving [place] coronary artery of [place] heart without angina pectoris Dyspnea on exertion EXTERNAL ECHO Routine 11/15/2024 9:52 AM EST from Last 3 Months Results * (ABNORMAL) Complete blood count (01/25/2025 7:02 AM EST) Only the most recent of2 resultswithin the time period is included. WBC 7.8 4.8 - 10.8 K/mcL LAB HEMETOLOGY METHOD 01/25/2025 11:36 AM EST [facility] RBC 4.50 4.50 - 5.50 M/mcL LAB HEMETOLOGY METHOD 01/25/2025 11:36 AM [facility] Hemoglobin 13.7 13.5 - 17.5 g/dL LAB HEMETOLOGY METHOD 01/25/2025 11:36 AM [facility] Hematocrit 41.6(L) 42.0 - 54.0 % LAB HEMETOLOGY METHOD 01/25/2025 11:36 AM [facility] MCV 93.3 79.0 - 98.0 FL LAB HEMETOLOGY METHOD 01/25/2025 11:36 AM [facility] MCH 30.7 27.0 - 32.0 pcg LAB HEMETOLOGY METHOD 01/25/2025 11:36 AM [facility] MCHC 32.9 32.0 - 37.0 g/dL LAB HEMETOLOGY METHOD 01/25/2025 11:36 AM [facility] RDW 12.9 11.0 - 15.0 % LAB HEMETOLOGY METHOD 01/25/2025 11:36 AM [facility] Platelets 01/25/2025 11:36 AM [facility] Comment:Not measured. Platel ets appear adequate but clumped MPV 11.1(H) 7.0 - 11.0 FL LAB HEMETOLOGY METHOD 01/25/2025 11:36 AM [facility] NRBC 0.0 <1.0 % LAB HEMETOLOGY METHOD 01/25/2025 11:36 AM [facility] NRBC Absolute 0.00 <0.10 K/mcL LAB HEMETOLOGY METHOD 01/25/2025 11:36 AM [facility] Blood Venous blood specimen / Unknown Venipuncture / Unknown 01/25/2025 7:02 AM EST 01/25/2025 10:36 AM EST Fidencio Burroughs MD LAB BLOOD ORDERABLES Final Res ult [facility] [address] [place] [address], * (ABNORMAL) Comprehensive metabolic panel (01/25/2025 7:02 AM EST) Only the most recent of3 resultswithin the time period is included. Sodium 137 133 - 145 mmol/L LAB CHEMISTRY METHOD 01/25/2025 11:50 AM [facility] Potassium 3.9 3.5 - 5.5 mmol/L LAB CHEMISTRY METHOD 01/25/2025 11:50 AM [facility] Chloride 101 96 - 110 mmol/L LAB CHEMISTRY METHOD 01/25/2025 11:50 AM [facility] CO2 27 21 - 32 mmol/L LAB CHEMISTRY METHOD 01/25/2025 11:50 AM [facility] Anion Gap 9 3 - 11 LAB CHEMISTRY METHOD 01/25/2025 11:50 AM [facility] Glucose 87 70 - 100 mg/dL LAB CHEMISTRY METHOD 01/25/2025 11:50 AM [facility] BUN 10 5 - 25 mg/dL LAB CHEMISTRY METHOD 01/25/2025 11:50 AM [facility] Creatinine 0.50(L) 0.70 - 1.30 mg/dL LAB CHEMISTRY METHOD 01/25/2025 11:50 AM [facility] eGFR 100 >=60 mL/min/1. 73m2 LAB CHEMISTRY METHOD 01/25/2025 11:50 AM [facility] Comment:Calculation based on the??Chronic Kidney Disease Epidemiology Collaboration (CKD-EPI) equation refit??without adjustment for race. BUN/Creatinine Ratio 20.0 LAB CHEMISTRY METHOD 01/25/2025 11:50 AM [facility] Calcium 9.1 8.5 - 10.5 mg/dL LAB CHEMISTRY METHOD 01/25/2025 11:50 AM [facility] AST (SGOT) 28 10 - 42 unit/L LAB CHEMISTRY METHOD 01/25/2025 11:50 AM [facility] ALT (SGPT) 38 10 - 60 unit/L LAB CHEMISTRY METHOD 01/25/2025 11:50 AM [facility] Alkaline Phosphatase 127(H) 42 - 121 unit/L LAB CHEMISTRY METHOD 01/25/2025 11:50 AM [facility] Total Protein 6.1 6.0 - 8.0 g/dL LAB CHEMISTRY METHOD 01/25/2025 11:50 AM [facility] Albumin 3.1(L) 3.2 - 5.0 g/dL LAB CHEMISTRY METHOD 01/25/2025 11:50 AM [facility] Total Bilirubin 0.7 0.0 - 1.4 mg/dL LAB CHEMISTRY METHOD 01/25/2025 11:50 AM [facility] Blood Venous blood specimen / Unknown Venipuncture / Unknown 01/25/2025 7:02 AM EST 01/25/2025 10:36 AM EST us Fidencio Burroughs MD LAB BLOOD ORDERABLES Final Res ult [facility] [address] [place] [address], * (ABNORMAL) Urinalysis with reflex microscopic and culture (01/17/2025 4:00 AM EST) Specific [place] Urine 1.009 1.003 - 1.030 LAB URINALYSIS - AUTOMATED METHOD 01/17/2025 12:04 PM [facility] pH, Urine 7.5 5.0 - 8.0 pH LAB URINALYSIS - AUTOMATED METHOD 01/17/2025 12:04 PM [facility] Leukocytes, Urine Large(A) Negative LAB URINALYSIS - AUTOMATED METHOD 01/17/2025 12:04 PM [facility] Nitrite, Urine Negative Negative LAB URINALYSIS - AUTOMATED METHOD 01/17/2025 12:04 PM [facility] Protein, Urine 30(A) <=Trace mg/dL LAB URINALYSIS - AUTOMATED METHOD 01/17/2025 12:04 PM [facility] Glucose, Urine Negative Negative mg/dL LAB URINALYSIS - AUTOMATED METHOD 01/17/2025 12:04 PM [facility] Ketones, Urine Negative Negative mg/dL LAB URINALYSIS - AUTOMATED METHOD 01/17/2025 12:04 PM [facility] Urobilinogen, Urine 1.0 0.2 - 1.0 mg/dL LAB URINALYSIS - AUTOMATED METHOD 01/17/2025 12:04 PM [facility] Bilirubin, Urine Negative Negative LAB URINALYSIS - AUTOMATED METHOD 01/17/2025 12:04 PM [facility] Blood, Urine Large(A) Negative LAB URINALYSIS - AUTOMATED METHOD 01/17/2025 12:04 PM [facility] RBC, Urine 501.9(H) 0 - 4 /HPF LAB URINALYSIS - AUTOMATED METHOD 01/17/2025 12:04 PM [facility] WBC, Urine 505.7(H) 0 - 4 /HPF LAB URINALYSIS - AUTOMATED METHOD 01/17/2025 12:04 PM [facility] Squamous Epithelial, Urine 4 0 - 60 /LPF LAB URINALYSIS - AUTOMATED METHOD 01/17/2025 12:04 PM [facility] Bacteria, Urine Negative Negative /HPF LAB URINALYSIS - AUTOMATED METHOD 01/17/2025 12:04 PM [facility] Hyaline Casts, Urine 4.8(H) 0 - 3 /LPF LAB URINALYSIS - AUTOMATED METHOD 01/17/2025 12:04 PM [facility] Urine Indwelling urinary catheter / Unknown Non-blood Collection / Unknown 01/17/2025 4:00 AM EST 01/17/2025 10:12 AM EST Fidencio Burroughs MD LAB URINE ORDERABLES Final Res ult [facility] [address] [place] [address], [place] [phone] * Mckeon urine culture tube (01/17/2025 4:00 AM EST) Extra Tube Hold for add-ons. 01/17/2025 12:01 PM EST [facility] Comment:Auto resulted. Urine Indwelling urinary catheter / Unknown Non-blood Collection / Unknown 01/17/2025 4:00 AM EST 01/17/2025 10:12 AM EST Fidencio Burroughs MD LAB URINE ORDERABLES Final Res ult [facility] [address] [place] [address], [place] [phone] * (ABNORMAL) Culture urine (01/17/2025 4:00 AM EST) Only the most recent of2 resultswithin the time period is included. Culture, Urine 10,000-49,0 00 CFU/mL Proteus mirabilis(A ) BAUDILIO 01/19/2025 11:30 AM EST [facility] Comment: Edited result: Previously reported as Proteus species on 01/18/2025 at 0837 EST. Urine Indwelling urinary catheter / Unknown Non-blood Collection / Unknown 01/17/2025 4:00 AM EST 01/17/2025 12:04 PM EST Narrative Organism Antibiotic Method Susceptibility Proteus mirabilis Amoxicillin/Clavulanate BAUDILIO <=2 ug/ml: Susceptible Proteus mirabilis Ampicillin/Sulbactam BAUDILIO <=2 ug/ml: Susceptible [...] Proteus mirabilis Trimethoprim/Sulfamethoxazole BAUDILIO <=20 ug/ml: Susceptible us Fidencio Burroughs MD LAB MICROBIOLOGY - GENERAL ORD ERABLES Final Result [facility] [address] [place] [address], * (ABNORMAL) CBC auto differential (01/15/2025 6:39 AM EST) [facility] WBC 8.0 4.8 - 10.8 K/mcL LAB HEMETOLOGY METHOD 01/15/2025 11:56 AM EST [facility] RBC 4.50 4.50 - 5.50 M/mcL LAB HEMETOLOGY METHOD 01/15/2025 11:56 AM EST [facility] Hemoglobin 13.9 13.5 - 17.5 g/dL LAB HEMETOLOGY METHOD 01/15/2025 11:56 AM EST [facility] Hematocrit 42.3 42.0 - 54.0 % LAB HEMETOLOGY METHOD 01/15/2025 11:56 AM [facility] MCV 95.1 79.0 - 98.0 FL LAB HEMETOLOGY METHOD 01/15/2025 11:56 AM [facility] MCH 31.2 27.0 - 32.0 pcg LAB HEMETOLOGY METHOD 01/15/2025 11:56 AM [facility] MCHC 32.9 32.0 - 37.0 g/dL LAB HEMETOLOGY METHOD 01/15/2025 11:56 AM [facility] RDW 13.2 11.0 - 15.0 % LAB HEMETOLOGY METHOD 01/15/2025 11:56 AM [facility] Platelets 01/15/2025 11:56 AM [facility] Comment:Not measured. Platel ets appear adequate but clumped MPV 11.4(H) 7.0 - 11.0 FL LAB HEMETOLOGY METHOD 01/15/2025 11:56 AM [facility] NRBC 0.0 <1.0 % LAB HEMETOLOGY METHOD 01/15/2025 11:56 AM [facility] NRBC Absolute 0.00 <0.10 K/mcL LAB HEMETOLOGY METHOD 01/15/2025 11:56 AM [facility] Neutrophils Relative 76.9 % LAB HEMETOLOGY METHOD 01/15/2025 11:56 AM [facility] Lymphocytes Relative 11.4 % LAB HEMETOLOGY METHOD 01/15/2025 11:56 AM [facility] Monocytes Relative 10.7 % LAB HEMETOLOGY METHOD 01/15/2025 11:56 AM [facility] Eosinophils Relative 0.6 % LAB HEMETOLOGY METHOD 01/15/2025 11:56 AM [facility] Basophils Relative 0.2 % LAB HEMETOLOGY METHOD 01/15/2025 11:56 AM [facility] Immature Granulocytes Relative 0.2 % LAB HEMETOLOGY METHOD 01/15/2025 11:56 AM EST [facility] Neutrophils Absolute 6.15 1.50 - 7.00 K/[facility] LAB HEMETOLOGY METHOD 01/15/2025 11:56 AM [facility] Lymphocytes Absolute 0.91(L) 1.00 - 5.00 K/mcL LAB HEMETOLOGY METHOD 01/15/2025 11:56 AM EST [facility] Monocytes Absolute 0.86 0.20 - 1.00 K/[facility] LAB HEMETOLOGY METHOD 01/15/2025 11:56 AM EST [facility] Eosinophils Absolute 0.05 0.00 - 0.50 K/[facility] LAB HEMETOLOGY METHOD 01/15/2025 11:56 AM [facility] Basophils Absolute 0.02 0.00 - 0.20 K/mcL LAB HEMETOLOGY METHOD 01/15/2025 11:56 AM EST [facility] Immature Granulocytes Absolute 0.02 0.00 - 0.03 K/mcL LAB HEMETOLOGY METHOD 01/15/2025 11:56 AM EST [facility] Blood Venous blood specimen / Unknown Venipuncture / Unknown 01/15/2025 6:39 AM EST 01/15/2025 10:03 AM EST us Fidencio Burroughs MD LAB BLOOD ORDERABLES Final Res ult [facility]) [facility] [address] [place] [address], * Magnesium (01/15/2025 6:39 AM EST) Magnesium 2.0 1.9 - 2.6 mg/dL LAB CHEMISTRY METHOD 01/15/2025 11:40 AM EST [facility] Blood Venous blood specimen / Unknown Venipuncture / Unknown 01/15/2025 6:39 AM EST 01/15/2025 10:03 AM EST Fidencio Burroughs MD LAB BLOOD ORDERABLES Final Res ult Performing Organization Address City/[facility] Co de Phone Number [facility]) [facility] [address] [place] [address], * ECG 12 lead (11/30/2024 11:15 AM EST) Ventricular Rate ECG 70 BPM GEMUSE Atrial Rate 70 BPM GEMUSE P-R Interval 140 ms GEMUSE QRS Duration 90 ms GEMUSE Q-T Interval 374 ms GEMUSE QTc 403 ms GEMUSE P Wave Aguilar -6 degrees GEMUSE R Aguilar 23 degrees GEMUSE T Aguilar 18 degrees GEMUSE ECG Interpretation Normal sinus rhythm Normal ECG No previous ECGs available Confirmed by LA NENA SYED ([id number]) on 11/30/2024 11:32:37 AM GEMUSE 11/30/2024 11:1 5 AM EST 11/30/2024 11:32 AM EST La Nena Syed MD ECG ORDERABLES Final Result Performing Organization Address City/[facility]/ZIP Co de Phone Number GEMUSE * External Echo (11/15/2024 9:52 AM EST) Anatomical Region Laterality Modality Ultrasound Historical Provider CV ECHO PROCEDURES Final Result from Last 3 Months Insurance [employer] Care Teams Barrel Waterer Relationship Specialty Start Date End Date Cj Barber DO [address] [place] [phone] PCP - General 04/21/13
--- OUTSIDE RECORDS SUMMARY | 2025-01-31 10:47 | XMS_ITS ---
Author Organization [facility] Address [address] [place] [address] Care Team Providers Care Oven Stripper Name Role Phone Aly Crespo Primary Care Provider Slade Manzano Unavailable [phone] Edgardo Pascual [phone] REASON FOR VISIT r/s for sooner apt Encounters Encounter Location Date Provider Diagnosis [address] [address] 12/30/2024 Edgardo Pascual Plan Of Treatment Next Appt Details Provider Name:Slade Manzano , 04/05/2025 11:30:00 AM, [address] [place], [address], Progress Notes * Gordo BULLOCK HDOB:1940 (84 yo M)Acc No.[id number]:12/30/2024 Progress Notes Patient:?Gordo BULLOCK Provider:?Edgardo Pascual D.P.M. :1940???Age:84 Y???Sex:Male Larry e:12/30/2024 Address:[address] [place] [address] [id number] Pcp:Aly Crespo Subjective: * Chief Complaints: * ???1. R/s for sooner apt. * Medical History:? Objective: * Vitals:? Assessment: Plan: * Treatment: * Images: * The named appointment provid er may or may not be the originator of this progress note, and it is not deemed complete until electronically signed by the appointment provider. Sign off status: Pending * Provider:?Edgardo Pascual D.P.M. Date:?04/2025 Generated for Zee vizcarra/Brandin/Sherrell on:?01/31/2025 10:47 AM EDT
--- OUTSIDE RECORDS SUMMARY | 2025-01-31 10:47 | XMS_ITS | Encounter Summary ---
Author Organization [facility] Address [address] [place] [address] Care Team Providers Care Distributor Sales Consultant Name Role Phone Cj Barber DO Primary Care Provider [phone] Encounter Details Date Type Department Care Team (Late Contact Info) Description 01/17/2025 Lab Requisition [facility] - Main Lab 299 [facility] [place] [address] Fidencio Burroughs MD [address] [place] [address] Encounter for other general examination Social History Tobacco Use Types Packs/Day Years Used Date Smoking Tobacco: Former Smokeless Tobacco: Never Alcohol Use Standard Drinks/Week Comments Not Currently 0 (1 standard drink = 0.6 oz pur e alcohol) Sex and Gender Information Value Date Recorded Sex Assigned at Not on file Legal Sex Male 7:51 AM EST Gender Identity Not on file Sexual Orientation Not on file documented as of this encounter Plan of Treatment Upcoming Encounters Date Type Department Care Team (Late Contact Info) Description 03/08/2025 1:10 PM EDT Office Visit [facility]iology Associates [facility] [address] [place] [address] Shahid Ramos NP [address] [place] [address] documented as of this encounter Procedures Procedure Name Priority Date/Time Associated Diagnosis Comments URINALYSIS WITH REFLEX MICROSCOPIC AND CULTURE Routine 01/17/2025 4:00 AM EST Encounter for other general examination [facility]KEON URINE CULTURE TUBE Routine 01/17/2025 4:00 AM EST Encounter for other general examination URINALYSIS WITH REFLEX MICROSCOPIC AND CULTURE Routine 01/17/2025 4:00 AM EST Encounter for other general examination CULTURE URINE Routine 01/17/2025 4:00 AM EST Encounter for other general examination documented in this encounter Results * (ABNORMAL) Culture urine (01/17/2025 4:00 AM EST) Culture, Urine 10,000-49,0 00 CFU/mL Proteus mirabilis(A ) BAUDILIO 01/19/2025 11:30 AM EST [facility] Comment: Edited result: Previously reported [...] Proteus mirabilis Trimethoprim/Sulfamethoxazole BAUDILIO <=20 ug/ml: Susceptible Fidencio Burroughs MD LAB MICROBIOLOGY - GENERAL ORD ERABLES Final Result [facility] [address] [place] [address], [place] [phone] * (ABNORMAL) Urinalysis with reflex microscopic and culture (01/17/2025 4:00 AM EST) Specific [place] Urine 1.009 1.003 - 1.030 LAB URINALYSIS - AUTOMATED METHOD 01/17/2025 12:[address] [facility] pH, Urine 7.5 5.0 - 8.0 pH LAB URINALYSIS - AUTOMATED METHOD 01/17/2025 12:[address] [facility] Leukocytes, Urine Large(A) Negative LAB URINALYSIS - AUTOMATED METHOD 01/17/2025 12:[address] [facility] Nitrite, Urine Negative Negative LAB URINALYSIS - AUTOMATED METHOD 01/17/2025 12:[address] [facility] Protein, Urine 30(A) <=Trace mg/dL LAB URINALYSIS - AUTOMATED METHOD 01/17/2025 12:[address] [facility] Glucose, Urine Negative Negative mg/dL LAB URINALYSIS - AUTOMATED METHOD 01/17/2025 12:[address] [facility] Ketones, Urine Negative Negative mg/dL LAB URINALYSIS - AUTOMATED METHOD 01/17/2025 12:[address] [facility] Urobilinogen, Urine 1.0 0.2 - 1.0 mg/dL LAB URINALYSIS - AUTOMATED METHOD 01/17/2025 12:[address] [facility] Bilirubin, Urine Negative Negative LAB URINALYSIS - AUTOMATED METHOD 01/17/2025 12:04 PM EST [facility] Blood, Urine Large(A) Negative LAB URINALYSIS - AUTOMATED METHOD 01/17/2025 12:[address] [facility] RBC, Urine 501.9(H) 0 - 4 /HPF LAB URINALYSIS - AUTOMATED METHOD 01/17/2025 12:[address] [facility] WBC, Urine 505.7(H) 0 - 4 /HPF LAB URINALYSIS - AUTOMATED METHOD 01/17/2025 12:[address] [facility] Squamous Epithelial, Urine 4 0 - 60 /LPF LAB URINALYSIS - AUTOMATED METHOD 01/17/2025 12:[address] [facility] Bacteria, Urine Negative Negative /HPF LAB URINALYSIS - AUTOMATED METHOD 01/17/2025 12:[address] [facility] Hyaline Casts, Urine 4.8(H) 0 - 3 /LPF LAB URINALYSIS - AUTOMATED METHOD 01/17/2025 12:[address] [facility] Urine Indwelling urinary catheter / Unknown Non-blood Collection / Unknown 01/17/2025 4:00 AM EST 01/17/2025 10:12 AM EST Fidencio Burroughs MD LAB URINE ORDERABLES Final Res ult [facility] [address] [place] [address], [place] [phone] * Mckeon urine culture tube (01/17/2025 4:00 AM EST) Extra Tube Hold for add-ons. 01/17/2025 12:[address] [facility] Comment:Auto resulted. Urine Indwelling urinary catheter / Unknown Non-blood Collection / Unknown 01/17/2025 4:00 AM EST 01/17/2025 10:12 AM EST Fidencio Burroughs MD LAB URINE ORDERABLES Final Res ult [facility] [address] [place] [address], documented in this encounter Visit Diagnoses Diagnosis Encounter for other general examination documented in this encounter Care Teams Distributor Sales Consultant Relationship Specialty Start Date End Date Cj Barber DO [address] [place] [phone] PCP - General 04/21/13 documented as of this encounter
--- OUTSIDE RECORDS SUMMARY | 2025-01-31 10:47 | XMS_ITS | Encounter Summary ---
Author Organization [facility] Address [address] [place] [address] Care Team Providers Care Outside Cutter Name Role Phone Cj Barber DO Primary Care Provider [phone] Reason for Visit * Reason Onset Date Comments Results 01/03/2025 Encounter Details Date Type Department Care Team ([facility] st Contact Info) Description 01/03/2025 Telephone [facility] Cardiology [address] [phone] Mg Candelario MD [address] [place] [address],[address] [phone] Results Social History Tobacco Use Types Packs/Day Years [...] Progress Notes * Evelyn Hendricks RN - 01/04/2025 2:19 PM EST Judith called back. She asked what medication I was referring to. I advised her pt should continuetaking Lasix (Furosemide) 40 mg daily and she voiced understanding. * Evelyn Hendricks RN - 01/04/2025 1:13 PM EST I left a detailed message on Judith's personal voicemail informed her pt should remain on Lasix 40mg daily. Advised call back if she has any questions. * Shahid Ramos NP - 01/04/2025 12:39 PM EST Continue with increased dose of Lasix. * Evelyn Hendricks RN - 01/04/2025 8:37 AM EST I spoke to Judith, pt's spouse, this morning. Pt has been taking increased dose of Lasix 40 mg daily since last week (see 12/30/24 telephone encounter). His BLE edema has decreased and he lost 3 lbs. Yesterday's weight resulted 166.2 lbs. He hasn't checked his weight this morning yet. BP yesterday 112/58. No dizziness or lightheadedness. I informed Judith of pt's stable lab resultsfrom 12/30/24 that have been scanned into [employer] for your viewing. Would you like him to continue taking Lasix 40 mg daily? * Aly Burns - 01/03/2025 3:58 PM EST Judith called to say that Gordo got blood work done on 12/30/24 at [facility] on [address] [place] around 3:00 to 3:15 pm. If it's possible can try to get the results from [facility] to go over them with Lionel they would appreciate that. documented in this encounter Plan of Treatment Upcoming Encounters Date Type Department Care Team (Late st Contact Info) Description 03/08/2025 1:10 PM EDT Office Visit [facility] Cardiology Associates [facility] Dr [facility] [address] [place] [address] Shahid Ramos NP [address] [place] [address] Dr [address] [place] [address] documented as of this encounter Visit Diagnoses Not on filedocumented in this encounter Care Teams Outside Cutter Relationship Specialty Start Date End Date Cj Barber DO [address] [place] [phone] PCP - General 04/21/13 documented as of this encounter
--- OUTSIDE RECORDS SUMMARY | 2025-01-31 10:47 | XMS_ITS | Encounter Summary ---
Author Organization [facility] Address [address] [place] [address] Care Team Providers Care Medical Historian Name Role Phone Cj Barber DO Primary Care Provider [phone] Encounter Details Date Type Department Care Team (Late Contact Info) Description 12/17/[address] [facility] - Main Lab 299 [facility] [place] [phone] Horace Gu MD [address] [facility] [address] [place] [phone] Urinary tract infection, site not specified Social [...] Description 03/08/2025 1:10 PM EDT Office Visit [facility]iology Associates - [facility] [address] [place] [address] Shahid Ramos NP [address] [place] [address] [address] [place], [place] [phone] documented as of this encounter Procedures Procedure Name Priority Date/Time Associated Diagnosis Comments CULTURE URINE Routine 12/17/2024 12:00 AM EST Urinary tract infection, site not specified documented in this encounter Results * (ABNORMAL) Culture urine (12/17/2024 12:00 AM EST) Culture, Urine >100,000 CFU/mL Proteus mirabilis(A ) BAUDILIO 12/19/2024 7:46 AM EST [facility] Comment: Edited result: Previously [...] mirabilis Trimethoprim/Sulfamethoxazole BAUDILIO <=20 ug/ml: Susceptible us Horace Gu MD LAB MICROBIOLOGY - GENERAL TRISTEN GALAVIZ Final Result [facility] [address] [place] [address], [place] [phone] documented in this encounter Visit Diagnoses Diagnosis Urinary tract infection, site not specified documented in this encounter Care Teams Medical Historian Relationship Specialty Start Date End Date Cj Barber DO [address] [place] [phone] PCP - General 04/21/13 documented as of this encounter
--- OUTSIDE RECORDS SUMMARY | 2025-01-31 10:47 | XMS_ITS | Encounter Summary ---
Author Organization [facility] Address [address] [place] [address] Care Team Providers Care Sales Team Manager Name Role Phone Cj Barber DO Primary Care Provider [phone] Encounter Details Date Type Department Care Team (Late Contact Info) Description 01/19/2025 Lab Requisition [facility] - Main Lab 299 [facility] [place] [address] Fidencio Burroughs MD [address] [place] [address] Encounter for other general examination Social History [...] Description 03/08/2025 1:10 PM EDT Office Visit [facility] Associates [facility] [address] [place] [address] Shahid Ramos NP [address] [place] [address] documented as of this encounter Procedures Procedure Name Priority Date/Time Associated Diagnosis Comments COMPLETE BLOOD COUNT Routine 01/19/2025 5:25 AM EST Encounter for other general examination COMPREHENSIVE METABOLIC PANEL Routine 01/19/2025 5:25 AM EST Encounter for other general examination documented in this encounter Results * (ABNORMAL) Complete blood count (01/19/2025 5:25 AM EST) WBC 6.3 4.8 - 10.8 K/mcL LAB HEMETOLOGY METHOD 01/19/2025 12:47 PM [facility] RBC 4.50 4.50 - 5.50 M/mcL LAB HEMETOLOGY METHOD 01/19/2025 12:47 PM [facility] Hemoglobin 13.9 13.5 - 17.5 g/dL LAB HEMETOLOGY METHOD 01/19/2025 12:47 PM [facility] Hematocrit 42.6 42.0 - 54.0 % LAB HEMETOLOGY METHOD 01/19/2025 12:47 PM [facility] MCV 94.0 79.0 - 98.0 FL LAB HEMETOLOGY METHOD 01/19/2025 12:47 PM [facility] MCH 30.7 27.0 - 32.0 pcg LAB HEMETOLOGY METHOD 01/19/2025 12:47 PM [facility] MCHC 32.6 32.0 - 37.0 g/dL LAB HEMETOLOGY METHOD 01/19/2025 12:47 PM [facility] RDW 13.0 11.0 - 15.0 % LAB HEMETOLOGY METHOD 01/19/2025 12:47 PM [facility] Platelets 01/19/2025 12:47 PM [facility] Comment:Not measured. Unable to quantitate due to platelet clumping MPV 11.3(H) 7.0 - 11.0 FL LAB HEMETOLOGY METHOD 01/19/2025 12:47 PM [facility] NRBC 0.0 <1.0 % LAB HEMETOLOGY METHOD 01/19/2025 12:47 PM EST [facility] NRBC Absolute 0.00 <0.10 K/mcL LAB HEMETOLOGY METHOD 01/19/2025 12:47 PM [facility] Blood Venous blood specimen / Unknown Venipuncture / Unknown 01/19/2025 5:25 AM EST 01/19/2025 10:00 AM EST us Fidencio Burroughs MD LAB BLOOD ORDERABLES Final Res ult [facility] [address] [place] [address], [place] [phone] * (ABNORMAL) Comprehensive metabolic panel (01/19/2025 5:25 AM EST) Sodium 137 133 - 145 mmol/L LAB CHEMISTRY METHOD 01/19/2025 11:35 AM [facility] Potassium 4.2 3.5 - 5.5 mmol/L LAB CHEMISTRY METHOD 01/19/2025 11:35 AM [facility] Chloride 103 96 - 110 mmol/L LAB CHEMISTRY METHOD 01/19/2025 11:35 AM [facility] CO2 24 21 - 32 mmol/L LAB CHEMISTRY METHOD 01/19/2025 11:35 AM [facility] Anion Gap 10 3 - 11 LAB CHEMISTRY METHOD 01/19/2025 11:35 AM [facility] Glucose 84 70 - 100 mg/dL LAB CHEMISTRY METHOD 01/19/2025 11:35 AM [facility] BUN 9 5 - 25 mg/dL LAB CHEMISTRY METHOD 01/19/2025 11:35 AM [facility] Creatinine 0.45(L) 0.70 - 1.30 mg/dL LAB CHEMISTRY METHOD 01/19/2025 11:35 AM [facility] eGFR 103 >=60 mL/min/1. 73m2 LAB CHEMISTRY METHOD 01/19/2025 11:35 AM [facility] Comment:Calculation based on the??Chronic Kidney Disease Epidemiology Collaboration (CKD-EPI) equation refit??without adjustment for race. BUN/Creatinine Ratio 20.0 LAB CHEMISTRY METHOD 01/19/2025 11:35 AM [facility] Calcium 8.9 8.5 - 10.5 mg/dL LAB CHEMISTRY METHOD 01/19/2025 11:35 AM [facility] AST (SGOT) 36 10 - 42 unit/L LAB CHEMISTRY METHOD 01/19/2025 11:35 AM [facility] ALT (SGPT) 44 10 - 60 unit/L LAB CHEMISTRY METHOD 01/19/2025 11:35 AM [facility] Alkaline Phosphatase 114 42 - 121 unit/L LAB CHEMISTRY METHOD 01/19/2025 11:35 AM [facility] Total Protein 6.2 6.0 - 8.0 g/dL LAB CHEMISTRY METHOD 01/19/2025 11:35 AM [facility] Albumin 3.1(L) 3.2 - 5.0 g/dL LAB CHEMISTRY METHOD 01/19/2025 11:35 AM [facility] Total Bilirubin 0.7 0.0 - 1.4 mg/dL LAB CHEMISTRY METHOD 01/19/2025 11:35 AM [facility] Blood Venous blood specimen / Unknown Venipuncture / Unknown 01/19/2025 5:25 AM EST 01/19/2025 10:00 AM EST us Fidencio Burroughs MD LAB BLOOD ORDERABLES Final Res ult [facility] [address] [place] [address], [place] [phone] documented in this encounter Visit Diagnoses Diagnosis Encounter for other general examination documented in this encounter Care Teams Sales Team Manager Relationship Specialty Start Date End Date Cj Barber DO [address] [place] [phone] PCP - General 04/21/13 documented as of this encounter
--- OUTSIDE RECORDS SUMMARY | 2025-01-31 10:47 | XMS_ITS | Encounter Summary ---
Author Organization [facility] Address [address] [place] [address] Care Team Providers Care Dispute Resolution Specialist Name Role Phone Cj Barber DO Primary Care Provider [phone] Encounter Details Date Type Department Care Team (Late Contact Info) Description 01/15/2025 Lab Requisition [facility] - Main Lab 299 [facility] [place] [address] Fidencio Burroughs MD [address] [place] [address] Encounter for other general examination Social History [...] Description 03/08/2025 1:10 PM EDT Office Visit [facility]iology Associates [facility] [address] [place] [address] Shahid Ramos NP [address] [place] [address] documented as of this encounter Procedures Procedure Name Priority Date/Time Associated Diagnosis Comments CBC WITH AUTO DIFFERENTIAL Routine 01/15/2025 6:39 AM EST Encounter for other general examination CBC AND DIFFERENTIAL Routine 01/15/2025 6:39 AM EST Encounter for other general examination MAGNESIUM Routine 01/15/2025 6:39 AM EST Encounter for other general examination COMPREHENSIVE METABOLIC PANEL Routine 01/15/2025 6:39 AM EST Encounter for other general examination documented in this encounter Results * (ABNORMAL) CBC auto differential (01/15/2025 6:39 AM EST) [facility] WBC 8.0 4.8 - 10.8 K/mcL LAB HEMETOLOGY METHOD 01/15/2025 11:56 AM [facility] RBC 4.50 4.50 - 5.50 M/mcL LAB HEMETOLOGY METHOD 01/15/2025 11:56 AM [facility] Hemoglobin 13.9 13.5 - 17.5 g/dL LAB HEMETOLOGY METHOD 01/15/2025 11:56 AM [facility] Hematocrit 42.3 42.0 - 54.0 % LAB HEMETOLOGY METHOD 01/15/2025 11:56 AM [facility] MCV 95.1 79.0 - 98.0 FL LAB HEMETOLOGY METHOD 01/15/2025 11:56 AM [facility] MCH 31.2 27.0 - 32.0 pcg LAB HEMETOLOGY METHOD 01/15/2025 11:56 AM [facility] MCHC 32.9 32.0 - 37.0 g/dL LAB HEMETOLOGY METHOD 01/15/2025 11:56 AM [facility] RDW 13.2 11.0 - 15.0 % LAB HEMETOLOGY METHOD 01/15/2025 11:56 AM [facility] Platelets 01/15/2025 11:56 AM [facility] Comment:Not measured. Platel ets appear adequate but clumped MPV 11.4(H) 7.0 - 11.0 FL LAB HEMETOLOGY METHOD 01/15/2025 11:56 AM [facility] NRBC 0.0 <1.0 % LAB HEMETOLOGY METHOD 01/15/2025 11:56 AM [facility] NRBC Absolute 0.00 <0.10 K/mcL LAB HEMETOLOGY METHOD 01/15/2025 11:56 AM [facility] Neutrophils Relative 76.9 % LAB HEMETOLOGY METHOD 01/15/2025 11:56 AM [facility] Lymphocytes Relative 11.4 % LAB HEMETOLOGY METHOD 01/15/2025 11:56 AM [facility] Monocytes Relative 10.7 % LAB HEMETOLOGY METHOD 01/15/2025 11:56 AM [facility] Eosinophils Relative 0.6 % LAB HEMETOLOGY METHOD 01/15/2025 11:56 AM [facility] Basophils Relative 0.2 % LAB HEMETOLOGY METHOD 01/15/2025 11:56 AM [facility] Immature Granulocytes Relative 0.2 % LAB HEMETOLOGY METHOD 01/15/2025 11:56 AM [facility] Neutrophils Absolute 6.15 1.50 - 7.00 K/mcL LAB HEMETOLOGY METHOD 01/15/2025 11:56 AM [facility] Lymphocytes Absolute 0.91(L) 1.00 - 5.00 K/mcL LAB HEMETOLOGY METHOD 01/15/2025 11:56 AM [facility] Monocytes Absolute 0.86 0.20 - 1.00 K/mcL LAB HEMETOLOGY METHOD 01/15/2025 11:56 AM [facility] Eosinophils Absolute 0.05 0.00 - 0.50 K/mcL LAB HEMETOLOGY METHOD 01/15/2025 11:56 AM EST [facility] Basophils Absolute 0.02 0.00 - 0.20 K/[facility] LAB HEMETOLOGY METHOD 01/15/2025 11:56 AM EST [facility] Immature Granulocytes Absolute 0.02 0.00 - 0.03 K/[facility] LAB HEMETOLOGY METHOD 01/15/2025 11:56 AM EST [facility] Blood Venous blood specimen / Unknown Venipuncture / Unknown 01/15/2025 6:39 AM EST 01/15/2025 10:03 AM EST Fidencio Burroughs MD LAB BLOOD ORDERABLES Final Res ult Performing Organization Address City/[facility]/ZIP Co de Phone Number [facility] [address] [place] [address], [place] [phone] * Magnesium (01/15/2025 6:39 AM EST) Magnesium 2.0 1.9 - 2.6 mg/dL LAB CHEMISTRY METHOD 01/15/2025 11:40 AM EST [facility] Blood Venous blood specimen / Unknown Venipuncture / Unknown 01/15/2025 6:39 AM EST 01/15/2025 10:03 AM EST Fidencio Burroughs MD LAB BLOOD ORDERABLES Final Res ult [facility] [address] [place] [address], [place] [phone] * (ABNORMAL) Comprehensive metabolic panel (01/15/2025 6:39 AM EST) Sodium 136 133 - 145 mmol/L LAB CHEMISTRY METHOD 01/15/2025 11:40 AM EST [facility] Potassium 3.9 3.5 - 5.5 mmol/L LAB CHEMISTRY METHOD 01/15/2025 11:40 AM EST [facility] Chloride 103 96 - 110 mmol/L LAB CHEMISTRY METHOD 01/15/2025 11:40 AM [facility] CO2 28 21 - 32 mmol/L LAB CHEMISTRY METHOD 01/15/2025 11:40 AM [facility] Anion Gap 5 3 - 11 LAB CHEMISTRY METHOD 01/15/2025 11:40 AM [facility] Glucose 89 70 - 100 mg/dL LAB CHEMISTRY METHOD 01/15/2025 11:40 AM [facility] BUN 15 5 - 25 mg/dL LAB CHEMISTRY METHOD 01/15/2025 11:40 AM [facility] Creatinine 0.48(L) 0.70 - 1.30 mg/dL LAB CHEMISTRY METHOD 01/15/2025 11:40 AM [facility] eGFR 101 >=60 mL/min/1. 73m2 LAB CHEMISTRY METHOD 01/15/2025 11:40 AM [facility] Comment:Calculation based on the??Chronic Kidney Disease Epidemiology Collaboration (CKD-EPI) equation refit??without adjustment for race. BUN/Creatinine Ratio 31.3 LAB CHEMISTRY METHOD 01/15/2025 11:40 AM [facility] Calcium 8.8 8.5 - 10.5 mg/dL LAB CHEMISTRY METHOD 01/15/2025 11:40 AM [facility] AST (SGOT) 28 10 - 42 unit/L LAB CHEMISTRY METHOD 01/15/2025 11:40 AM [facility] ALT (SGPT) 31 10 - 60 unit/L LAB CHEMISTRY METHOD 01/15/2025 11:40 AM [facility] Alkaline Phosphatase 104 42 - 121 unit/L LAB CHEMISTRY METHOD 01/15/2025 11:40 AM [facility] Total Protein 5.9(L) 6.0 - 8.0 g/dL LAB CHEMISTRY METHOD 01/15/2025 11:40 AM [facility] Albumin 2.9(L) 3.2 - 5.0 g/dL LAB CHEMISTRY METHOD 01/15/2025 11:40 AM EST [facility] Total Bilirubin 1.0 0.0 - 1.4 mg/dL LAB CHEMISTRY METHOD 01/15/2025 11:40 AM EST [facility] Blood Venous blood specimen / Unknown Venipuncture / Unknown 01/15/2025 6:39 AM EST 01/15/2025 10:03 AM EST us Fidencio Burroughs MD LAB BLOOD ORDERABLES Final Res ult [facility] [address] [place] [address], documented in this encounter Visit Diagnoses Diagnosis Encounter for other general examination documented in this encounter Care Teams Dispute Resolution Specialist Relationship Specialty Start Date End Date Cj Barber DO [address] [place] [phone] PCP - General 04/21/13 documented as of this encounter
--- OUTSIDE RECORDS SUMMARY | 2025-01-31 10:47 | XMS_ITS | Encounter Summary ---
Author Organization [facility] Address [address] [place] [address] Care Team Providers Care Special Assemblies Supervisor Name Role Phone Cj Barber DO Primary Care Provider [phone] Encounter Details Date Type Department Care Team (Late Contact Info) Description 01/25/2025 Lab Requisition [facility] [address] [facility] [place] [address] Fidencio Burroughs MD [address] [place] [id number] Encounter for other general examination Social History [...] Description 03/08/2025 1:10 PM EDT Office Visit [facility] [address] [place] [address] Shahid Ramos NP [address] [place] [address] documented as of this encounter Procedures Procedure Name Priority Date/Time Associated Diagnosis Comments COMPLETE BLOOD COUNT Routine 01/25/2025 7:02 AM EST Encounter for other general examination COMPREHENSIVE METABOLIC PANEL Routine 01/25/2025 7:02 AM EST Encounter for other general examination documented in this encounter Results * (ABNORMAL) Complete blood count (01/25/2025 7:02 AM EST) WBC 7.8 4.8 - 10.8 K/mcL LAB HEMETOLOGY METHOD 01/25/2025 11:[address] [facility] RBC 4.50 4.50 - 5.50 M/mcL LAB HEMETOLOGY METHOD 01/25/2025 11:[address] [facility] Hemoglobin 13.7 13.5 - 17.5 g/dL LAB HEMETOLOGY METHOD 01/25/2025 11:[address] [facility] Hematocrit 41.6(L) 42.0 - 54.0 % LAB HEMETOLOGY METHOD 01/25/2025 11:[address] [facility] MCV 93.3 79.0 - 98.0 FL LAB HEMETOLOGY METHOD 01/25/2025 11:[address] [facility] MCH 30.7 27.0 - 32.0 pcg LAB HEMETOLOGY METHOD 01/25/2025 11:[address] [facility] MCHC 32.9 32.0 - 37.0 g/dL LAB HEMETOLOGY METHOD 01/25/2025 11:[address] [facility] RDW 12.9 11.0 - 15.0 % LAB HEMETOLOGY METHOD 01/25/2025 11:[address] [facility] Platelets 01/25/2025 11:[address] [facility] Comment:Not measured. Platel ets appear adequate but clumped MPV 11.1(H) 7.0 - 11.0 FL LAB HEMETOLOGY METHOD 01/25/2025 11:[address] [facility] NRBC 0.0 <1.0 % LAB HEMETOLOGY METHOD 01/25/2025 11:36 AM EST [facility] NRBC Absolute 0.00 <0.10 K/mcL LAB HEMETOLOGY METHOD 01/25/2025 11:36 AM EST [facility] Blood Venous blood specimen / Unknown Venipuncture / Unknown 01/25/2025 7:02 AM EST 01/25/2025 10:36 AM EST us Fidencio Burroughs MD LAB BLOOD ORDERABLES Final Res ult [facility] [address] [place] [address], [place] [phone] * (ABNORMAL) Comprehensive metabolic panel (01/25/2025 7:02 AM EST) Sodium 137 133 - 145 mmol/L LAB CHEMISTRY METHOD 01/25/2025 11:[address] [facility] Potassium 3.9 3.5 - 5.5 mmol/L LAB CHEMISTRY METHOD 01/25/2025 11:[address] [facility] Chloride 101 96 - 110 mmol/L LAB CHEMISTRY METHOD 01/25/2025 11:[address] [facility] CO2 27 21 - 32 mmol/L LAB CHEMISTRY METHOD 01/25/2025 11:[address] [facility] Anion Gap 9 3 - 11 LAB CHEMISTRY METHOD 01/25/2025 11:[address] [facility] Glucose 87 70 - 100 mg/dL LAB CHEMISTRY METHOD 01/25/2025 11:[address] [facility] BUN 10 5 - 25 mg/dL LAB CHEMISTRY METHOD 01/25/2025 11:[address] [facility] Creatinine 0.50(L) 0.70 - 1.30 mg/dL LAB CHEMISTRY METHOD 01/25/2025 11:[address] [facility] eGFR 100 >=60 mL/min/1. 73m2 LAB CHEMISTRY METHOD 01/25/2025 11:[address] [facility] Comment:Calculation based on the??Chronic Kidney Disease Epidemiology Collaboration (CKD-EPI) equation refit??without adjustment for race. BUN/Creatinine Ratio 20.0 LAB CHEMISTRY METHOD 01/25/2025 11:[address] [facility] Calcium 9.1 8.5 - 10.5 mg/dL LAB CHEMISTRY METHOD 01/25/2025 11:[address] [facility] AST (SGOT) 28 10 - 42 unit/L LAB CHEMISTRY METHOD 01/25/2025 11:[address] [facility] ALT (SGPT) 38 10 - 60 unit/L LAB CHEMISTRY METHOD 01/25/2025 11:[address] [facility] Alkaline Phosphatase 127(H) 42 - 121 unit/L LAB CHEMISTRY METHOD 01/25/2025 11:[address] [facility] Total Protein 6.1 6.0 - 8.0 g/dL LAB CHEMISTRY METHOD 01/25/2025 11:[address] [facility] Albumin 3.1(L) 3.2 - 5.0 g/dL LAB CHEMISTRY METHOD 01/25/2025 11:[address] [facility] Total Bilirubin 0.7 0.0 - 1.4 mg/dL LAB CHEMISTRY METHOD 01/25/2025 11:[address] [facility] Blood Venous blood specimen / Unknown Venipuncture / Unknown 01/25/2025 7:02 AM EST 01/25/2025 10:36 AM EST us Fidencio Burroughs MD LAB BLOOD ORDERABLES Final Res ult [facility] [address] [place] [address], documented in this encounter Visit Diagnoses Diagnosis Encounter for other general examination documented in this encounter Care Teams Special Assemblies Supervisor Relationship Specialty Start Date End Date Cj Barber DO [address] [place] [address] [phone] PCP - General 04/21/13 documented as of this encounter
--- OUTSIDE RECORDS SUMMARY | 2025-01-31 10:47 | XMS_ITS | Patient Health Record ---
Author Organization [facility] iris Cowden Address [address] [place] [address] Care Team Providers Care Ice Guard Skating Rink Name Role Phone Aly Crespo Primary Care Provider [phone] Slade Manzano Unavailable [phone] Edgardo Pascual Unavailable [phone] Allergies No Known Allergies Reason For Referral No Information Medications Medication SIG (Take, Route, Frequency, Duration) Notes Start Date End Date Status Finasteride 5 MG 1 tablet Orally Once a day Active Metoprolol Tartrate 25 MG 1 tablet Orall y Twice a day Active Aspirin 81 MG 1 tablet Orally Once a day Active Lipitor 80 MG 1 tablet Orally Once a day Not-Taking Ciclopirox Olamine 0.77 % 1 application Externally Twice a day to skin of feet including between the toes for 30 days Active Atorvastatin Calcium 80 MG 1 tablet Orally Once a day Active Tamsulosin HCl 0.4 MG 1 capsule Orally O nce a day Active Lisinopril 5 MG 1 tablet Orally Once a day Not-Taking Ciclopirox Olamine 0.77% external Apply to effected areas twice a day for 30 days 09/19/2014 Unknown Social History Tobacco Use: Social History Observation Description Date Details (start date - stop date) Never Smoker NA - NA Tobacco Control (Standard) Question Answer Notes Tobacco use: Nonsmoker Additional Findings: Tobacco non-user Current no nsmoker AUDIT-C (Standard) Question Answer Notes Did you have a drink containing alcohol in the p ast year? No Points 0 Interpretation Negative Problems Problem Type SNOMED Code ICD Code Onset Dates Problem Status W/U Status Risk Notes Problem Atherosclerosis of [place] artery of both lower extremities, with unspecified presence of clinical manifestation (I70.203) Active confirmed Q7(A), Q8(2B), Q9(1B,2C) Vital Signs Blood pressure diastolic 80 mm Hg 12/28/2024 Height 5 ft 10 in in 12/28/2024 Blood pressure systolic 120 mm Hg 12/28/2024 Weight 195 lbs 12/28/2024 BMI 27.98 kg/m2 12/28/2024 Procedures Procedure Date Ordered Date Performed Result Body Sit e 09044-HHEEVIE NAIL, 6 OR MORE 12/28/2024 N/A 00922-UETD SKIN LESIONS, OVER 12/28/2024 N/A Encounters Encounter Location Date Provider Diagnosis [facility] [place] [address] [place] [address] 12/28/2024 Slade Manzano Atherosclerosis of [place] artery of both lower extremities, with unspecified presence of clinical manifestation I70.203 ; Tinea unguium B35.1 ; Pain in right toe(s) M79.674 ; Pain in left toe(s) M79.675 and Tinea pedis of both feet B35.3 Assessments Encounter Date Diagnosis (ICD Code) Assessment Notes Treatment Notes Treatment Clinical Notes Section Notes 12/28/2024 Atherosclerosis of [place] artery of both lower extremities, with unspecified presence of clinical manifestation (ICD-10 - I70.203) Q7(A), Q8(2B), Q9(1B,2C) 12/28/2024 Tinea unguium (ICD-10 - B35.1) 12/28/2024 Pain in right toe(s) (ICD-10 - M79.674) 12/28/2024 Pain in left toe(s) (ICD-10 - M79.675) 12/28/2024 Tinea pedis of both feet (ICD-10 - B35.3) Plan Of Treatment Pending Test Test Name Order Date 75826-HSSANKO NAIL, 6 OR MORE 06/22/2014 53122-GPPOHZT NAIL, 6 OR MORE 09/19/2014 88484-IYCKCTP NAIL, 6 OR MORE 12/28/2024 61602-EYTK SKIN LESIONS, OVER 12/28/19 Next Appt Details Provider Name:Slade Manzano , 04/05/2025 11:30:00 AM, [address] [place], [address], Insurance Providers Payer Name Payer Address Payer Phone Subscriber Number Group Number Insured Name Patient Relationship to Insured Coverage Start Date Coverage End Date [facility] [address] [facility] [place] [id number] [phone] [id number] Gordo Bullock Self - patient is the insured 4 Medical (General) History Medical History History ICD Code Broken bones Heart disease High blood pressure Mumps Measles CAD (Cholesterol) covid-19 Neuropathy Chicken pox Degenerative Disc disease Surgical History Surgery Date(Month/Year) heart stents
== END 2025-01-31 10:47 | disposition home or self-care (01) ==
LOC: HO.HMCSH 09:52
PROVIDERS: PCP Internal Medicine; Visit Provider Physician Assistant Medical
DX: M48.02 Spinal stenosis, cervical region (principal); G99.2 Myelopathy in diseases classified elsewhere; T83.89XA Other specified complication of genitourinary prosthetic devices, implants and grafts, initial encounter; L89.152 Pressure ulcer of sacral region, stage 2; I25.2 Old myocardial infarction; N39.0 Urinary tract infection, site not specified; N40.0 Benign prostatic hyperplasia without lower urinary tract symptoms; Z99.89 Dependence on other enabling machines and devices; I25.10 Atherosclerotic heart disease of native coronary artery without angina pectoris; I10 Essential (primary) hypertension; E78.00 Pure hypercholesterolemia, unspecified; K21.9 Gastro-esophageal reflux disease without esophagitis

== ENCOUNTER → 2025-01-31 09:52 | Outpatient (BNVA) | payer MEDICARE, SELFPAY | PROVIDERS: PCP Internal Medicine; Visit Provider Physician Assistant Medical | DX: Z09 Encounter for follow-up examination after completed treatment for conditions other than malignant neoplasm (principal); M48.02 Spinal stenosis, cervical region; G99.2 Myelopathy in diseases classified elsewhere; I21.4 Non-ST elevation (NSTEMI) myocardial infarction; N39.0 Urinary tract infection, site not specified; T83.89XD Other specified complication of genitourinary prosthetic devices, implants and grafts, subsequent encounter; N40.0 Benign prostatic hyperplasia without lower urinary tract symptoms; L89.152 Pressure ulcer of sacral region, stage 2; I25.10 Atherosclerotic heart disease of native coronary artery without angina pectoris; I10 Essential (primary) hypertension; E78.00 Pure hypercholesterolemia, unspecified; K21.9 Gastro-esophageal reflux disease without esophagitis; R97.20 Elevated prostate specific antigen [PSA]; R55 Syncope and collapse; R06.09 Other forms of dyspnea; E55.9 Vitamin D deficiency, unspecified; Z98.61 Coronary angioplasty status; Z99.89 Dependence on other enabling machines and devices | CPT/HCPCS: 99212 ==

== ENCOUNTER 2025-02-09 11:29 | Outpatient (AMB) | payer MEDICARE, SELFPAY ==
--- NOTE | 2025-02-09 11:22 | A.OFFPC_ITS ---
Vital Signs 02/09/25 11:28 Weight 165 lb BP 110/70 Intake Visit Reasons: sudden onset extreme weakness Intake Note: alot of weekness in hands and feet Allergies No Known Allergies [No Known Allergies*] Allergy (Verified 02/09/25 11:46) Medication List - Last Reconciled 02/09/25 by Haritha Ni PA-C aspirin 81 mg PO DAILY atorvastatin 80 mg PO DAILY furosemide 20 mg PO DAILY isosorbide mononitrate ER 30 mg PO DAILY metoprolol succinate ER 25 mg PO DAILY nitroglycerin 0.4 mg sublingual Q5M PRN timolol maleate 0.5% 0 drps ophthalmic (eye) [facility] Medical History Weakness Hospital discharge follow-up Dyspnea on exertion Vitamin D deficiency Vasovagal syncope Elevated PSA GERD (gastroesophageal reflux disease) Mild hypercholesterolemia Hypertension Coronary artery disease Walker as ambulation aid BPH (benign prostatic hyperplasia) Indwelling Nolan catheter calcification UTI (urinary tract infection) NSTEMI (non-ST elevated myocardial infarction) 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, stage 2 Surgical History History of wisdom tooth extraction History of cataract surgery History of colonoscopy (~04/2013) History of heart artery stent History of PTCA Social History Patient Tobacco Use Status: Former Tobacco user Physical exam (Primary Care) Vital Signs: Last Vital Signs BP 110/70 02/09/25 11:28 Tobacco/Smoking Status: Tobacco use Status Patient Tobacco Use Status Former Tobacco user 02/09/25 11:29 Telehealth Telehealth Telehealth Platform: [facility] Location of provider rendering services: practice address Location of patient: address on file Patient Identification confirmed using: Name, : Yes Telehealth method: voice only Patient verbally consented to treatment: Yes Patient verbally consented to billing insurance company: Yes Patient informed of any privacy concerns related to visit: Yes Minutes spent on Phone/Video with Pt.: 15 Coding Level of Care Code Tele Est Pt Level 3 (10623) Diagnoses Weakness R53.1 Assessment & Plan Assessment & Plan (1) Weakness: Code(s): R53.1 - Weakness Category: Medical Plan: Comprehensive evaluation to identify potential underlying causes of weakness exacerbation. was recommended to call the ambulance and patient to be sent to the emergency department for further evaluation and management of acute weakness. Patient's understands this plan. And agrees with it. Plan Plan Patient was informed and verbally consented to the use of an ambient scribe for clinic note documentation during this visit. 1. Weakness Comprehensive evaluation to identify potential underlying causes of weakness exacerbation. was recommended to call the ambulance and patient to be sent to the emergency department for further evaluation and management of acute weakness. Patient's understands this plan. And agrees with it. 2. Myocardial Infarction Review and adjustments to long-term management strategies as needed. 3. Spinal Stenosis Urgent imaging and evaluation are required to assess for surgical complications. 4. Pressure Ulcer Ensure ongoing care and prevention strategies during hospital admission. 5. Urinary Tract Infection With Sepsis Immediate ER evaluation and potential IV antibiotics are recommended due to recurrence risk. Discussion Notes I discussed with the patient's family the need for urgent evaluation in the emergency department due to the worsening weakness and inability to walk, along with a history significant for urinary tract infection with sepsis and other chronic conditions. The risks of delay in treatment were addressed, emphasizing potential acute complications from spinal surgery and past myocardial infarction. I advised ambulance transport to expedite hospital evaluation and initiation of necessary diagnostic studies, including blood work, urine cultures, and possible imaging. The benefits of rapid assessment and the necessity for potential interventions were thoroughly discussed, with consent to proceed understood. Patient Instructions: Patient Instructions - Call an ambulance for immediate transport to the emergency department. - Inform the ER staff of the recent decline in the ability to walk, loss of hand sensation, and medical history including sepsis, spinal stenosis, and recent surgery. - Ensure continuous care for pressure ulcers, and communicate any changes to the healthcare team. - Monitor for any new symptoms and contact medical personnel as needed. - Follow-up with primary care and specialists as advised post-discharge. Scribe Plan - Not visible on output: History of Present Illness The patient is an 84-year-old male presenting with worsening weakness and an inability to walk. He has experienced rapid symptom progression since last Friday. His medical history includes urinary tract infection with sepsis, myocardial infarction, pressure ulcer, and spinal stenosis, with recent surgical intervention for the latter. Despite surgery, there is loss of hand sensation and significant weakness. There have been no falls or fevers reported, and his weight is stable, but due to his medical background and surgery, there is concern for possible acute infection or other post-surgical complications. Review of Systems - Neurologic: Reports loss of sensation in hands, worsening chronic weakness. - Constitutional: Denies fever, reports stable weight.
[2025-02-09 11:28] VITALS: BP 110/70
== END 2025-02-09 11:51 | disposition home or self-care (01) ==
LOC: HO.HMCSH 11:29
PROVIDERS: PCP Internal Medicine; Visit Provider Physician Assistant Medical
DX: R53.1 Weakness (principal)

== ENCOUNTER 2025-02-09 12:20 | Inpatient (IN) | payer MEDICARE, SELFPAY ==
[2025-02-09] VITALS (10 sets, daily range): BP systolic 140–193; BP diastolic 74–99; PULSE 68–99; RESP 18–28; TEMP 36.5–37.1; O2SAT 94–98; BMI 27.7
--- NOTE | ~2025-02-09 | XR_ITS ---
EXAMINATION: XR CHEST CLINICAL INFORMATION: dyspnea COMPARISON: February 09, 2025. February 28, 2021. TECHNIQUE: Frontal view of the chest was obtained. FINDINGS: Pulmonary reticular pattern. Linear and patchy opacities left lower hemithorax with low lung volume. Elevated left hemidiaphragm, mild to moderate. No pneumothorax. Cardiomediastinal silhouette size is normal. Calcified plaque thoracic aortic arch. S-shaped curvature of the thoracolumbar spine. Metallic plate in the lower cervical spine. Degenerative changes in the left shoulder. XR/XR chest 1V IMPRESSION: Acute on chronic airspace disease involving mostly the left lower lung lobe/lingula. Elevated left hemidiaphragm, chronic suggesting left phrenic paralysis. Electronically signed by: Kartik Saleh MD 02/10/2025 08:03 AM EDT
--- NOTE | ~2025-02-09 | CT_ITS ---
EXAMINATION: CT CERVICAL SPINE WITHOUT CONTRAST CLINICAL INFORMATION: Status post cervical spine fusion. COMPARISON: None available. TECHNIQUE: Contiguous axial images through the cervical spine using 3 mm collimation with bone and soft tissue algorithm. Sagittal and coronal reformatted images acquired. This CT examination was performed using dose optimization techniques as appropriate, variously including the following: *Automated exposure control *Adjustment of mA and/or kV according to patient size (this includes techniques or standardized protocols for targeted exams where dose is matched to indication/reason for exam; i.e. extremities or head) *Use of iterative reconstruction technique. DLP: 357.88 mGy centimeter. FINDINGS: Limited by patient's motion artifact. Craniocervical junction is intact. There is a partially calcified pannus formation and degenerative changes in the periodontal C1 region. Status post anterior cervical fusion with anchor screws and metallic plate from C3 to C5 and intervertebral body disc spacer, C3-4 C4-5 levels. There is grade 1 anterolisthesis C4-5. There is a reverse curvature apex at C5-6. There is facet joint hypertrophy from C2-3 to C5-6 levels. There is calcified plaques in the carotic artery systems bilaterally. Calcified plaques in the petrous and cavernous supraclinoid segments both ICAs. There is no acute cortical disruption. There is paraseptal emphysematous changes in the included lung apices. CT/CT cervical spine wo IV con IMPRESSION: Anterior cervical fusion with intact metallic plate and screws as well as intervertebral body disc spacer placement from C3 to C5. Grade 1 anterolisthesis C4-5 on a degenerative basis. Partially calcified pannus formation with associated degenerative changes in the periodontal C1 region. Fleischner guidelines were followed. Electronically signed by: Kartik Saleh MD 02/09/2025 02:38 PM EDT
--- NOTE | ~2025-02-09 | MR_ITS ---
CLINICAL HISTORY: <OBR.31.1><OBR.31.1.1>b l arm weakness, recent neck surgery Unable to run SAG Obli ques </OBR.31.1.1><OBR.31.1.2> GRE due to metal from fusion </OBR.31.1.2><OBR.31.1.3> pt discomfort</ OBR.31.1.3></OBR.31.1> MR cervical spine without gadolinium Comparison: CT/SR - CT CERVICAL SPINE WO IV CON - 02/09/25 13:58 EDT Findings: Limited study based on artifact. There is postsurgical change status post anterior C3-C5 fusion. Reference sagittal images 9-12, there is moderately severe central canal stenosis, with flattening of the cord at this level, reference axial 23. This appears to relate to postsurgical fluid at the disc space level. Small volume prevertebral postsurgical fluid and moderate prevertebral soft tissue edema. No acute fracture or acute malalignment identified. The visualized posterior fossa demonstrates volume loss. Individual levels: C2-C3: No significant central canal stenosis or neural foraminal narrowing. C3-C4: Severe central canal stenosis and severe bilateral neural foraminal narrowing as detailed above. C4-C5: Severe left neural foraminal narrowing. No central canal stenosis. C5-C6: Moderately severe bilateral neural foraminal narrowing. No central canal stenosis C6-C7: Moderate left neural foraminal narrowing. No central canal stenosis C7-T1: Unremarkable. Impression: Severe central canal stenosis at C3-C4 with flattening of the cord at this level. No current cord signal abnormality detected. Moderately severe additional multilevel degenerative changes. Postsurgical soft tissue edema and fluid in the prevertebral soft tissues, likely expected. This document has been electronically signed by: Nam Scott MD on 02/12/2025 15:51:02
--- NOTE | ~2025-02-09 | XR_ITS ---
EXAMINATION: XR CHEST 1 VIEW HISTORY: weakness COMPARISON: Comparison is made with the prior examination dated 02/28/2021. FINDINGS: A single AP portable view of the chest performed at 12:51 PM is submitted. There are low lung volumes with elevation of the left hemidiaphragm. Patchy densities at the lung bases may represent subsegmental atelectasis. There is no pleural effusion, pneumothorax, or pulmonary vascular congestion. The heart is normal in size. There is degenerative disc disease of the spine. XR/XR chest 1V IMPRESSION: Probable bibasilar subsegmental atelectasis. Electronically signed by: Cj Martino MD 02/09/2025 12:57 PM EDT RP
--- NOTE | ~2025-02-09 | CT_ITS ---
EXAMINATION: CT CHEST ANGIOGRAPHY WITH IV CONTRAST INDICATION: new onset Afib, dyspnea, elevated d-dimer COMPARISON: There are no prior studies available for comparison. TECHNIQUE: Helical CT scan of the chest was performed following administration of intravenous contrast (65 mL Omnipaque 350). The contrast bolus was timed to optimally opacify the pulmonary arteries. Thin sections were obtained through the pulmonary arteries. Coronal and sagittal reformatted images were generated. 3D/MIP reconstructed images are also obtained and reviewed. This CT exam was performed with one or more of the following dose reduction techniques: automated exposure control, adjustment of the mA and/or kV according to patient size, use of iterative reconstruction technique. DLP: 485 mGy-cm CHEST: THYROID: The thyroid gland is unremarkable. PULMONARY ARTERIES: There are filling defects within the left lower lobe pulmonary arterial branches consistent with pulmonary emboli. No additional filling defects are identified. LUNGS: There are mild emphysematous changes at the lung apices. Patchy opacity at both lung bases likely represent subsegmental atelectasis. MEDIASTINUM: There is no mediastinal lymphadenopathy. GETACHEW: There is no hilar lymphadenopathy. CARDIOVASCULATURE: The heart is enlarged. There is right ventricular dilatation which could represent right heart strain. There is no pericardial effusion. The thoracic aorta is normal in caliber. DEGREE OF CORONARY CALCIFICATION: severe PLEURA: There is no pleural effusion. No pneumothorax. MAIN AIRWAYS: The mainstem bronchi and proximal branches are patent. AXILLA: There is no axillary lymphadenopathy. UPPER ABDOMEN: The visualized portions of the liver, spleen, and adrenals are unremarkable. There is cholelithiasis. BONES AND SOFT TISSUES: There is degenerative disc disease of the spine. CT/CT angio chest PE protocol IMPRESSION: Pulmonary emboli in the left lower lobe. Cardiomegaly with right ventricular dilatation may represent right heart strain. Clinical correlation is recommended. Findings were discussed with Dr. Peralta on 02/10/2025 at 9:13 AM. Electronically signed by: Cj Martino MD 02/10/2025 09:13 AM EDT
--- NOTE | 2025-02-09 12:28 | ED.GENADULT ---
HPI - General Adult General Chief complaint: Weakness Stated complaint: PER EMS DECREASED MOVEMENT TO EXTREMITIES Time Seen by Provider: 02/09/25 12:22 Source: patient, family, EMS, RN notes reviewed and old records reviewed Mode of arrival: EMS History of Present Illness ED Provider: Evelia Mitchell PA-C HPI narrative: 84-year-old male with a past medical history of CAD s/p stenting, GERD, NSTEMI, BPH with indwelling Nolan catheter, s/p C3/4, C4/5 ACDF for cervical stenosis and myelopathy on 01/11/25 at [facility] presenting to the ED via EMS today complaining of increasing generalized fatigue/weakness and difficulty ambulating x 5 days. Admits was seen at neurosurgical follow-up on Friday, collar removed, admits was cleared from their perspective. Denies recent fever, chills, cough, CP/SOB, abdominal pain, nausea/vomiting Related Data Home Medications ?Medication ?Instructions ?Recorded ?Confirmed atorvastatin 80 mg tablet 80 mg PO DAILY 10/08/21 02/09/25 metoprolol succinate 25 mg 25 mg PO DAILY 10/08/21 02/09/25 tablet,extended release 24 hr timolol maleate 0.5 % eye drops 0 drp ophthalmic (eye) 10/08/21 02/09/25 aspirin 81 mg tablet,delayed 81 mg PO DAILY 01/31/25 02/09/25 release isosorbide mononitrate 30 mg 30 mg PO DAILY 01/31/25 02/09/25 tablet,extended release 24 hr nitroglycerin 0.4 mg sublingual 0.4 mg sublingual Q5M PRN Angina 01/31/25 02/09/25 tablet furosemide 20 mg tablet 20 mg PO DAILY 02/09/25 02/09/25 Allergies Allergy/AdvReac Type Severity Reaction Status Date / Time No Known Allergies Allergy Verified 02/09/25 12:37 [No Known Allergies*] Review of Systems Review of Systems: Yes all other systems are reviewed and are negative Constitutional: Constitutional: Reports as per HPI Neurologic: Denies Abnormal speech present [facility] Past Medical History Attestation statement: The following information was validated with the patient. 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, stage 2 Surgical History History of wisdom tooth extraction History of cataract surgery History of colonoscopy (~04/2013) History of heart artery stent History of PTCA Social History Social History Unable to assess alcohol history related to: Unknown Patient Tobacco Use Status: Former Tobacco user Smoked in Last 30 Days: No Use of substances other than those prescribed or required for medical reasons: Unknown Advance Directives: Yes Advance Directives Information Provided: No Advance Directives on File: No Physical Exam ED Vital Signs: Vital Signs - 24 hr 02/09/25 12:34 02/09/25 13:45 02/09/25 14:00 Temperature 97.7 F 98.8 F Pulse Rate 78 93 Respiratory Rate 18 28 H Blood Pressure 140/80 H 165/87 H Pulse Oximetry 98 95 Oxygen Delivery Method Room Air Room Air 02/09/25 14:17 02/09/25 14:22 Temperature Pulse Rate 90 99 Respiratory Rate Blood Pressure 165/87 H 144/74 H Pulse Oximetry Oxygen Delivery Method BMI result Body Mass Index 27.7 Const General: cooperative, healthy appearing and no acute distress Orientation/consciousness: patient oriented x3 Limitations: no limitations HENMT Head: Yes normal to inspection and Yes atraumatic Ears: hearing grossly normal bilaterally General nose exam: Normal external nose present Face and sinus: Yes normal facial exam Eyes General: appearance normal, both eyes and all related structures EOM: EOMs intact bilaterally Neck Neck: Yes normal visual inspection, Yes no meningeal signs and No anterior neck swelling Resp Effort & Inspection: normal respiratory effort and no respiratory distress Auscultation: clear to auscultation bilaterally Cardio Rate: regular rate Heart sounds: S1 normal heart sound present and S2 normal heart sound present GI Inspection: Yes normal to inspection Palpation (GI): Soft to palpation, nontender, no guarding and not rigid General: Yes no CVA tenderness Back/Spine/Pelvis Other: No midline cervical/thoracic/lumbar spinous tenderness/step-off or deformity Back: no CVA tenderness Skin Rashes: no rashes Wounds: no wounds Neuro General: patient oriented x3, tone normal, moves all extremities, no meningeal signs, no focal motor deficits and CN's II-XI intact bilaterally Cranial nerves: Yes CN's II-XII intact bilaterally and Yes Bilaterally intact EOM present Cognition (Neuro): normal cognition Speech: No Abnormal speech present Gait exam (Neuro): Assisted gait required Gait assisted method: walker (& person assist - unsteady, no ataxia or weakness) Motor exam (neuro): 5/5 motor strength present throughout Extrem Other: + bilateral LE pitting edema General: Yes normal to inspection Course Course Course Narrative: -1508--labs reassuring including negative troponin -UA infected > will initiate IV Rocephin -viral testing negative XR chest 1V IMPRESSION: Probable bibasilar subsegmental atelectasis. CT cervical spine wo IV con IMPRESSION: Anterior cervical fusion with intact metallic plate and screws as well as intervertebral body disc spacer placement from C3 to C5. Grade 1 anterolisthesis C4-5 on a degenerative basis. Partially calcified pannus formation with associated degenerative changes in the periodontal C1 region. Fleischner guidelines were followed. > awaiting callback from [facility] neurosurgery. PT/case management consults ordered -1630--ED care transferred to [facility] pending patient's neurosurgery recommendations and anticipated PT/case management. Medications Administered Discontinued Medications Generic Name Dose Route Start Last Admin Trade Name Freq PRN Reason Stop Dose Admin Ceftriaxone Sodium 1 gm 02/09/25 15:09 02/09/25 15:31 Ceftriaxone Sodium 1 Gm Vial IVPUSH 02/09/25 15:10 1 gm ONCE ONE Administration Medical Decision Making Medical Decision Making [facility] Narrative: 84-year-old male with a past medical history of CAD s/p stenting, GERD, NSTEMI, BPH with indwelling Nolan catheter, s/p C3/4, C4/5 ACDF for cervical stenosis and myelopathy on 01/11/25 at [facility] presenting to the ED via EMS today complaining of increasing generalized fatigue/weakness and difficulty ambulating x 5 days. On exam vital signs stable, NAD, nontoxic appearing, no midline spinous tenderness or focal neuro deficits. Ambulating with walker with assistance, gait is unsteady, no ataxia or appreciable weakness. Concern for acute on chronic symptoms vs surgical complication vs generalized deconditioning vs infectious/metabolic abnormalities including UTI or viral illness. Lower suspicion for sepsis, ICH, CVA/TIA or ACS at this time Plan: EKG, labs, UA, CXR, cervical spine CT, consult patient's neurosurgeon Please refer to course for remaining clinical decision making, interpretation of labs/imaging results, and discussions with consultants and/or family members. Differential Diagnosis Differential Diagnoses: The differential diagnosis associated with the presentation includes As above Admission/Observation Consideration of admission/observation: Escalation of care including admission/observation considered Consult Healthcare Provider Management of the patient was discussed with: Compactor Driver Lab Data MDM Lab Attestation statement: I reviewed the patient's lab results. 02/09/25 13:00 02/09/25 13:00 Labs: Lab Results 02/09/25 02/09/25 02/09/25 Range/Units 12:59 13:00 14:29 WBC 7.4 (4.8-10.8) X10*3/uL RBC 4.56 L (4.60-5.80) X10*6/uL Hgb 14.0 (14.0-18.0) g/dl Hct 40.3 L (42.0-52.0) % MCV 88.4 (80.0-98.0) fL MCH 30.7 (27.0-33.0) pg MCHC 34.7 (31.0-36.0) g/dl RDW 13.0 (11.0-16.0) % Plt Count TNP MPV Not Reportable Immature Gran % (Auto) 0.3 (0.0-0.4) % Neut % (Auto) 72.1 (45-73) % Lymph % (Auto) 14.7 L (20-40) % [place] % (Auto) 11.3 H (2-11) % Eos % (Auto) 1.2 (0-4) % Baso % (Auto) 0.4 (0-2) % Lymph # (Auto) 1.1 L (1.2-4.9) X10*3/uL [place] # (Auto) 0.8 (0.1-1.2) X10*3/uL Eos # (Auto) 0.1 (0.0-0.4) X10*3/uL Baso # (Auto) 0.0 (0.0-0.2) X10*3/uL Abs Immat Gran (auto) 0.02 (0.00-0.03) X10*3/uL Absolute Neuts (auto) 5.4 (2.0-8.3) x10*3/uL Absolute Nucleated RBC 0.000 (0.0-0.012) X10*3/uL Nucleated RBC % (auto) 0.0 (0.0-0.2) /100WBC Smear Tech's Comments VERIFIED Sodium 136 (135-145) mmol/L Potassium 4.1 (3.3-5.1) mmol/L Chloride 106 (96-108) mmol/L Carbon Dioxide 25 (22-29) mmol/L Anion Gap 9 L (12-20) BUN 11 (9-16) mg/dL Creatinine 0.57 (0.5-1.4) mg/dL Estim Creat Clear Calc 89.9 Estimated GFR > 60 Random Glucose 82 (60-115) mg/dL Calcium 9.0 (8.4-10.2) mg/dL Magnesium 2.0 (1.6-2.6) mg/dL Total Bilirubin 0.6 (0.0-1.0) mg/dL Direct Bilirubin 0.3 (0.0-0.5) mg/dL AST 26 (5-37) U/L ALT 24 (0-40) U/L Alkaline Phosphatase 134 H (39-117) U/L Troponin I High Sens < 2.7 (<3.5-35.0) ng/L B-Natriuretic Peptide 68 (<100) pg/mL Total Protein 6.7 (6.5-8.0) g/dL Albumin 3.5 (3.5-5.0) g/dL Urine Color Yellow Urine Appearance Clear Urine pH 7.5 (5.0-9.0) Ur Specific [place] <= 1.005 (1.005-1.025) Urine Protein Negative (Neg-Trace) mg/dL Urine Glucose (UA) Negative (Negative) mg/dL Urine Ketones Negative (Negative) mg/dL Urine Blood Small (1+) H (Negative) Urine Nitrite Negative (Negative) Ur Leukocyte Esterase Large (3+) H (Negative) Urine RBC 0-2 (0-2) /HPF Urine WBC 21-50 H (0-5) /HPF Ur Squamous Epith Cells 0-2 (0-2) /HPF Urine Bacteria None Seen (None Seen) Hyaline Casts 0-2 (0-2) /LPF Influenza Type A (PCR) NEGATIVE (Negative) Influenza Type B (PCR) NEGATIVE (Negative) RSV RNA Qual (PCR) NEGATIVE (Negative) SARS-CoV-2 RNA (RT-PCR) NEGATIVE (Negative) Independent Interpretation I performed an independent interpretation of an: EKG, Plain X-Ray and CT Scan Radiology Impression Discussion of test interpretation with radiology: I have reviewed the radiologist's reading. Independent Historian Clinical information obtained from an independent historian. History obtained from or confirmed by: EMS External Record Review External record reviewed: Inpatient record, Office record, Outpatient record, Prior outpatient labs, Prior outpatient radiology, Primary care record and Outside ED record Tests considered The following testing was considered but not selected: As above Prescription Management I considered prescription management with: Other Chronic Conditions Patient?s care impacted by: Hypertension and Other Social Determinants Patient?s care significantly limited by Social Determinants of Health including: Problems related to primary support group and Other Social Determinant of Health Discharge Plan Discharge Clinical Impression: Acute UTI, Gait instability, Generalized weakness Patient Disposition: Still a Patient Prescriptions: No Action timolol maleate 0.5 % drops 0 drp ophthalmic (eye) metoprolol succinate 25 mg tablet extended release 24 hr 25 mg PO DAILY atorvastatin 80 mg tablet 80 mg PO DAILY aspirin 81 mg tablet,delayed release (DR/EC) 81 mg PO DAILY isosorbide mononitrate 30 mg tablet extended release 24 hr 30 mg PO DAILY nitroglycerin 0.4 mg tablet, sublingual 0.4 mg sublingual Q5M PRN (Reason: Angina) Patient Comments: pt states does not use anymore Rx Instructions: do not exceed 3 doses per episode furosemide 20 mg tablet 20 mg PO DAILY Patient Comments: no longer taking Print Language: Macanese
--- NOTE | 2025-02-09 12:40 | ECG_ITS ---
Test Reason : BERRIOJ Blood Pressure : */* mmHG Vent. Rate : 80 BPM Atrial Rate : 80 BPM P-R Int : 156 ms QRS Dur : 86 ms QT Int : 356 ms P-R-T Axes : 31 4 13 degrees QTcB Int : 410 ms Normal sinus rhythm Normal ECG When compared with ECG of 28-Feb-2021 07:28, Premature atrial complexes are no longer Present Referred By: Evelia Mitchell Electronically Signed By: Amanuel Tejada
[2025-02-09 13:09] LABS: Basophils Percent Auto 0.4 % (0-2); Eosinophils Absolute Auto 0.1 X10*3/uL (0.0-0.4); Eosinophils Percent Auto 1.2 % (0-4); Hematocrit 40.3 % (42.0-52.0); Imm Gran Abs Auto 0.02 X10*3/uL (0.00-0.03); Imm Gran Pct Auto 0.3 % (0.0-0.4); Lymphocytes Absolute Auto 1.1 X10*3/uL (1.2-4.9); Lymphocytes Percent Auto 14.7 % (20-40); MANUAL DIFF FLAG SCAN; Mean Corpuscular HGB Conc 34.7 g/dl (31.0-36.0); Mean Corpuscular Hemoglobin 30.7 pg (27.0-33.0); Mean Corpuscular Volume 88.4 fL (80.0-98.0); Monocytes Absolute Auto 0.8 X10*3/uL (0.1-1.2); Monocytes Percent Auto 11.3 % (2-11); Neutrophils Absolute Auto 5.4 x10*3/uL (2.0-8.3); Neutrophils Percent Auto 72.1 % (45-73); PLT CLUMP 1; Red Blood Count 4.56 X10*6/uL (4.60-5.80); SCAN SMEAR FLAG 1
[2025-02-09 13:21] LABS: Alanine Aminotransferase 24 U/L (0-40); Albumin Level 3.5 g/dL (3.5-5.0); Alkaline Phosphatase 134 U/L (39-117); Anion Gap 9 (12-20); Aspartate Amino Transferase 26 U/L (5-37); Bilirubin Direct 0.3 mg/dL (0.0-0.5); Bilirubin Total 0.6 mg/dL (0.0-1.0); Blood Urea Nitrogen 11 mg/dL (9-16); Carbon Dioxide 25 mmol/L (22-29); Chloride 106 mmol/L (96-108); Creatinine Clr Calc Pharmacy 89.9; Estimated Glomerular Filt Rate > 60; Glucose Random 82 mg/dL (60-115); Potassium 4.1 mmol/L (3.3-5.1); Sodium 136 mmol/L (135-145); Total Protein 6.7 g/dL (6.5-8.0)
[2025-02-09 13:26] LABS: B Type Natriuretic Peptide 68 pg/mL (<100)
[2025-02-09 13:31] LABS: Troponin-I High Sensitivity < 2.7 ng/L (<3.5-35.0)
[2025-02-09 13:37] LABS: White Blood Count 7.4 X10*3/uL (4.8-10.8)
[2025-02-09 13:49] LABS: Influenza A PCR NEGATIVE (Negative); Influenza B PCR NEGATIVE (Negative); Resp Syncy Virus RNA Qual PCR NEGATIVE (Negative); SARS COV2 PCR INHOUSE NEGATIVE (Negative)
[2025-02-09 14:42] LABS: Appearance Urine Clear; Color Urine Yellow; Glucose Urine UA Negative (Negative); Leukocyte Esterase Urine Large (3+) (Negative); Nitrite Urine Negative (Negative); PH 7.5 (5.0-9.0); Specific Gravity - Urine <= 1.005 (1.005-1.025); UMIC TRIGGER UACC YES; Urine Blood Small (1+) (Negative); Urine Ketones Negative (Negative); Urine Protein Negative (Neg-Trace)
[2025-02-09 14:51] LABS: Bacteria Urine None Seen (None Seen); Hyaline Casts Urine 0-2 /LPF (0-2); RBC Urine 0-2 /HPF (0-2); Squamous Epithelial Cell Urine 0-2 /HPF (0-2); UACC Culture Trigger YES; WBC Urine 21-50 /HPF (0-5)
[2025-02-09 14:59] LABS: SLIDE REVIEW VERIFIED
[2025-02-09] MEDS: cefTRIAXone sodium 1 GM VIAL IVPUSH (15:31)
--- NOTE | 2025-02-09 17:25 | MHC.CM.ED ---
CM met with patient and his family at the request of Evelia LU. A&Ox3. Lives with . Has a hearing aide. Uses a walker. Was driving. No HCP on file. Family thinks a copy is at [facility]. HCP#1/ Judith Bullock ([phone]) and HCP#2/son Gordo Bullock ([phone]). Is active with [facility] for SN, PT/OT and [facility]. Was seen by PT on Friday. Is scheduled for PT on and Friday. Pt had cervical surgery at [facility] on 01/11. Went to [facility] for a week and then has been having home PT. Pt was seen on Friday by his surgeon and cleared. Pt and say he had been walking well with his walker since his surgery. [place] strong after acute rehab. Has gotten progressively weaker since Friday and cannot use his walker d/t weakness. His is concerned that he will fall. Pt diagnosed with UTI. PT is pending.Pt is agreeable to referral to [facility]. Pt is aware that PT may recommend acute rehab, STR or home PT. CM will speak with patient and again tomorrow regarding discharge plan. CM will alert [facility] that patient is in the ED. CM will follow for discharge planning.
--- NOTE | 2025-02-09 20:01 | MHC.EDTECH ---
This PCT assumed care of Pt at 1900. Vital signs taken, call martel within reach. samaniego bag completely full- 1200ml of urine emptied.
--- NOTE | 2025-02-09 21:12 | MHC.EDTECH ---
Pt put on bedpan, did not end up having a bowel movement. Pt settled in bed, call martel within reach
--- NOTE | 2025-02-09 22:53 | MHC.EDTECH ---
600ml urine emptied from samaniego bag.
[2025-02-10] VITALS (12 sets, daily range): BP systolic 88–163; BP diastolic 58–93; PULSE 76–144; RESP 16–26; TEMP 36.3–37.1; O2SAT 93–98; BMI 25.5
--- NOTE | 2025-02-10 | ECG_ITS ---
Test Reason : rythm check,now in sinus on monitor Blood Pressure : */* mmHG Vent. Rate : 77 BPM Atrial Rate : 77 BPM P-R Int : 146 ms QRS Dur : 86 ms QT Int : 362 ms P-R-T Axes : 15 6 30 degrees QTcB Int : 409 ms Normal sinus rhythm Normal ECG When compared with ECG of 10-Feb-2025 07:07, Sinus rhythm has replaced Atrial fibrillation Vent. rate has decreased by [address] no longer depressed in Lateral leads Referred By: Lucien Knapp Electronically Signed By: Amanuel Tejada
--- NOTE | 2025-02-10 00:09 | PC.NURSE ---
took over care from JOSETTE Santiago, no sign of distress, pt reposotioned in bed for comfort.
--- NOTE | 2025-02-10 00:13 | MHC.EDTECH ---
2300: vital signs taken, Pt repositioned in bed. Call martel within reach
--- NOTE | 2025-02-10 02:31 | PC.NURSE ---
assisted pt with a drink, swallow evaluation completed.
--- NOTE | 2025-02-10 03:34 | MHC.EDTECH ---
Pt boosted/repositioned in bed. Pt had a few small sips of water. Vital signs taken, samaniego emptied- 600ml of urine, call martel within reach.
--- NOTE | 2025-02-10 04:48 | PC.NURSE ---
pt resting in bed.
--- NOTE | 2025-02-10 06:05 | MHC.EDTECH ---
200ml urine emptied from samaniego bag. Pt had a few sips of water without issue. Call martel within reach
--- NOTE | 2025-02-10 07:07 | ECG_ITS ---
Test Reason : AFIB Blood Pressure : */* mmHG Vent. Rate : 132 BPM Atrial Rate : * BPM P-R Int : * ms QRS Dur : 88 ms QT Int : 308 ms P-R-T Axes : * 19 -3 degrees QTcB Int : 456 ms Atrial fibrillation with rapid ventricular response Nonspecific ST abnormality Abnormal ECG When compared with ECG of 09-Feb-2025 13:10, Atrial fibrillation has replaced Sinus rhythm Vent. rate has increased by [address] now depressed in Lateral leads Referred By: Liliana Peralta Electronically Signed By: Amanuel Tejada
[2025-02-10] MEDS: 0.9 % Sodium Chloride 500 ML IV ×2 (07:21→08:28)
[2025-02-10] MEDS: Metoprolol Tartrate 5 MG/5 ML VIAL 2.5 MG IVPUSH (07:25)
[2025-02-10] MEDS: Atorvastatin Calcium 80 MG TABLET PO (07:40)
[2025-02-10] MEDS: Metoprolol Succinate ER 25 MG TAB.ER.24H PO (07:40)
[2025-02-10] MEDS: cefuroxime axetiL 250 MG TABLET PO (07:41)
[2025-02-10 07:44] LABS: MANUAL DIFF FLAG NO
--- NOTE | 2025-02-10 07:45 | PC.NURSE ---
at change of shift it was noted that pts hear rate was jumping up to 150 and bouncing between 120 and 150. EKG obtained which indicated afib RVR. Pressure at this time was 114/77. 5mg metoprolol ordered IV. Another pressure was checked before given IV metoprolol and it was 80s over 60s. this was repeated multiple times and with manual BP. Per Dr. Peralta, still give 2.5mg metoprolol IV and start 500cc bolus NS on pressure bag. After metoprolol, rate improved to 110s-120s. another IV was established and labs drawn. another repeat BP was 102/58 at 0731
[2025-02-10 07:46] LABS: Basophils Percent Auto 0.5 % (0-2); Eosinophils Absolute Auto 0.1 X10*3/uL (0.0-0.4); Eosinophils Percent Auto 0.8 % (0-4); Hematocrit 41.1 % (42.0-52.0); Hemoglobin 14.5 g/dl (14.0-18.0); Imm Gran Abs Auto 0.02 X10*3/uL (0.00-0.03); Imm Gran Pct Auto 0.3 % (0.0-0.4); Lymphocytes Absolute Auto 0.9 X10*3/uL (1.2-4.9); Lymphocytes Percent Auto 11.6 % (20-40); Mean Corpuscular HGB Conc 35.3 g/dl (31.0-36.0); Mean Platelet Volume 10.4 fL (9.4-12.4); Monocytes Absolute Auto 0.5 X10*3/uL (0.1-1.2); Monocytes Percent Auto 6.3 % (2-11); Neutrophils Percent Auto 80.5 % (45-73); Platelet Count 154 X10*3/uL (160-400); Red Blood Count 4.67 X10*6/uL (4.60-5.80); White Blood Count 7.4 X10*3/uL (4.8-10.8)
[2025-02-10 07:53] LABS: D Dimer High Sensitivity 912 NG/ML
[2025-02-10 08:05] LABS: Alanine Aminotransferase 19 U/L (0-40); Alkaline Phosphatase 125 U/L (39-117); Anion Gap 10 (12-20); Aspartate Amino Transferase 29 U/L (5-37); Bilirubin Direct 0.3 mg/dL (0.0-0.5); Bilirubin Total 0.7 mg/dL (0.0-1.0); Blood Urea Nitrogen 10 mg/dL (9-16); Calcium 8.3 mg/dL (8.4-10.2); Carbon Dioxide 24 mmol/L (22-29); Chloride 107 mmol/L (96-108); Creatinine Clr Calc Pharmacy 94.9; Estimated Glomerular Filt Rate > 60; Glucose Random 103 mg/dL (60-115); Magnesium 1.9 mg/dL (1.6-2.6); Potassium 3.8 mmol/L (3.3-5.1); Sodium 137 mmol/L (135-145); Troponin-I High Sensitivity < 2.7 ng/L (<3.5-35.0)
--- NOTE | 2025-02-10 08:33 | MHC.CM.ED ---
Patient remains in ER. Copy of HCP obtained from [facility]. Received notification that patient will be medically admitted. Continue to monitor for d/c needs.
--- NOTE | 2025-02-10 08:48 | PC.NURSE ---
per Dr Peralta do not start dilt drip unless pt is consistently above 120sHR
[2025-02-10] MEDS: iohexoL 350 MG/ML 100 ML INFUS..BTL IV (08:50)
--- NOTE | 2025-02-10 09:08 | PC.NURSE ---
delay in abx administration halle RAE requested stat CT and pt is a difficult stick and it is difficult to obtain 1st set of blood cultures
[2025-02-10] MEDS: Azithromycin 500 MG in 0.9 % Sodium Chloride 250 ML 125 MG IV (09:15)
[2025-02-10 09:23] LABS: B Type Natriuretic Peptide 100 pg/mL (<100)
[2025-02-10 09:29] LABS: INTERNATIONAL NORM RATIO 1.1 (0.9-1.1)
[2025-02-10 09:32] LABS: PTT Heparin Drip 28.2 SEC (53-77.9)
[2025-02-10] MEDS: Enoxaparin Sodium 80 MG/0.8 ML SYRINGE SUBCUT ×2 (09:33→22:40)
[2025-02-10 09:37] LABS: Lactic Acid 1.2 mmol/L (0.5-2.0)
--- NOTE | 2025-02-10 09:55 | PC.NURSE ---
pressures have maintained 120s systolic. HR in 120s. Continuing to hold on dilt drip
--- NOTE | 2025-02-10 10:25 | P.HPHOSP_ITS ---
History of Present Illness Date of Service: 02/10/25 Chief Complaint: weakness The patient is a 84-year-old male with a past medical history of CAD status PCI x2, hypertension, hyperlipidemia, recent C3-4, C4-5 ACDF for cervical stenosis and myelopathy on 01/11/2025 who presented to [facility] ED on 02/09/2025 with imbalance and generalized weakness. His workup initially revealed possible UTI. CT of the C-spine did not show any acute abnormalities. He was cleared from a neurosurgical perspective and was awaiting physical therapy evaluation and possible rehab placement. However, this morning the patient was noted to be tachycardic with EKG revealing AFib with RVR. Further workup was ensued including a chest x-ray and eventually a CTA which showed a left lower lobe pulmonary embolism. He was given a dose of Lovenox, IV metoprolol 2.5, p.o. metoprolol 25 XL and admission has been requested. Patient is seen and examined in the emergency room around 10:00. He denies any chest pain or shortness of breath. He reports generalized weakness. He reports left greater than right weakness which he states has been present prior to his surgery. 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 Review of Systems 2 Review of Systems: Negative except HPI/interval history. 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, stage 2 Surgical History History of wisdom tooth extraction History of cataract surgery History of colonoscopy (~04/2013) History of heart artery stent History of PTCA Social History Unable to assess alcohol history related to: Unknown Patient Tobacco Use Status: Former Tobacco user Smoked in Last 30 Days: No Use of substances other than those prescribed or required for medical reasons: Unknown Advance Directives: Yes Advance Directives Information Provided: No Advance Directives on File: No Meds Allergies Allergy/AdvReac Type Severity Reaction Status Date / Time No Known Allergies Allergy Verified 02/09/25 12:37 [No Known Allergies*] Active Medications: Current Medications Acetaminophen (Acetaminophen 325 Mg Tablet) 650 mg PO Q6H PRN PRN Reason: Pain, Mild 1-3,fever,headache Atorvastatin Calcium (Atorvastatin Calcium 80 Mg Tablet) 80 mg PO DAILY [facility] Last Admin: 02/10/25 07:40 Dose: 80 mg Calcium Carbonate (Calcium Carbonate 750 Mg Tab.Chew) 750 mg PO Q4H PRN PRN Reason: Heartburn Cefuroxime Axetil (Cefuroxime Axetil 250 Mg Tablet) 250 mg PO Q12H [facility] Stop: 02/17/25 07:59 Last Admin: 02/10/25 07:41 Dose: 250 mg Enoxaparin Sodium (Enoxaparin Sodium 80 Mg/0.8 Ml Syringe) 80 mg SUBCUT Q12H [facility] Magnesium Hydroxide (Milk Of Magnesia 30 Ml Oral.Susp) 30 ml PO DAILY PRN PRN Reason: Constipation Melatonin (Melatonin 3 Mg Tablet) 6 mg PO BEDTIME PRN PRN Reason: Insomnia Metoprolol Succinate (Metoprolol Succinate Er 25 Mg Tab.Er.24h) 25 mg PO DAILY [facility]; Protocol Last Admin: 02/10/25 07:40 Dose: 25 mg Sodium Chloride (0.9 % Sodium Chloride Flush 3 Ml Syringe) 3 ml IVFLUSH QSHIFT [facility] Home Medications ?Medication ?Instructions ?Recorded ?Confirmed ?Last Taken ?Type atorvastatin 80 mg tablet 80 mg PO DAILY 10/08/21 02/09/25 02/08/25 History metoprolol succinate 25 mg 25 mg PO DAILY 10/08/21 02/09/25 02/08/25 History tablet,extended release 24 hr timolol maleate 0.5 % eye drops 0 drp ophthalmic (eye) 10/08/21 02/09/25 02/08/25 History aspirin 81 mg tablet,delayed 81 mg PO DAILY 01/31/25 02/09/25 02/09/25 History release isosorbide mononitrate 30 mg 30 mg PO DAILY 01/31/25 02/09/25 02/08/25 History tablet,extended release 24 hr nitroglycerin 0.4 mg sublingual 0.4 mg sublingual Q5M PRN Angina 01/31/25 02/09/25 Unknown History tablet furosemide 20 mg tablet 20 mg PO DAILY 02/09/25 02/09/25 3 Months Ago History ~11/11/24 amlodipine 5 mg tablet 5 mg PO DAILY 02/10/25 Unknown History finasteride 5 mg tablet 5 mg PO DAILY 02/10/25 Unknown History lisinopril 5 mg tablet 5 mg PO DAILY 02/10/25 Unknown History tamsulosin 0.4 mg capsule 0.4 mg PO DAILY 02/10/25 Unknown History Physical Exam 2 Vital Signs and Narrative: Vital Signs: Last Vital Signs Temp 97.5 F 02/10/25 09:29 Pulse 119 H 02/10/25 09:29 Resp 22 H 02/10/25 09:29 BP 128/79 02/10/25 09:29 Pulse Ox 97 02/10/25 09:29 O2 Del Method Room Air 02/10/25 09:29 BMI result Body Mass Index 27.7 Const: Other: Constitutional - Awake and Alert, No apparent distress Eyes - PERRLA, EOMI Cardiovascular - S1S2, IRR rates between 100-130s on telemonitor Respiratory - Normal lung expansion, Normal respiratory effort, No respiratory distress, CTA bilaterally Gastrointestinal - NT / ND; +BS; No rebound or guarding - No CVA tenderness Extremities - no calf tenderness bilaterally, no swelling Musculoskeletal - Normal inspection, normal ROM Skin - Warm/Dry Neurological - Alert & oriented x3, No focal deficit; strenght equal b/l in UE and LE Psychological - Appropriate affect Results Labs 02/10/25 07:40 02/10/25 07:40 Labs: Laboratory Results - last 24 hr 02/09/25 02/09/25 02/09/25 12:59 13:00 14:29 MCV 88.4 MCH 30.7 MCHC 34.7 RDW 13.0 Plt Count TNP MPV Not Reportable Immature Gran % (Auto) 0.3 Neut % (Auto) 72.1 Lymph % (Auto) 14.7 L Meade % (Auto) 11.3 H Eos % (Auto) 1.2 Baso % (Auto) 0.4 Lymph # (Auto) 1.1 L Meade # (Auto) 0.8 Eos # (Auto) 0.1 Baso # (Auto) 0.0 Abs Immat Gran (auto) 0.02 Absolute Neuts (auto) 5.4 Absolute Nucleated RBC 0.000 Nucleated RBC % (auto) 0.0 Smear Tech's Comments VERIFIED PT INR aPTT Heparin Protocol D-Dimer High Sensitivty Anion Gap 9 L Estim Creat Clear Calc 89.9 Estimated GFR > 60 Random Glucose 82 Lactic Acid Calcium 9.0 Magnesium 2.0 Total Bilirubin 0.6 Direct Bilirubin 0.3 AST 26 ALT 24 Alkaline Phosphatase 134 H B-Natriuretic Peptide 68 Total Protein 6.7 Albumin 3.5 TSH Urine Color Yellow Urine Appearance Clear Urine pH 7.5 Ur Specific [place] <= 1.005 Urine Protein Negative Urine Glucose (UA) Negative Urine Ketones Negative Urine Blood Small (1+) H Urine Nitrite Negative Ur Leukocyte Esterase Large (3+) H Urine RBC 0-2 Urine WBC 21-50 H Ur Squamous Epith Cells 0-2 Urine Bacteria None Seen Hyaline Casts 0-2 Influenza Type A (PCR) NEGATIVE Influenza Type B (PCR) NEGATIVE RSV RNA Qual (PCR) NEGATIVE SARS-CoV-2 RNA (RT-PCR) NEGATIVE 02/10/25 02/10/25 07:40 09:11 MCV 88.0 MCH 31.0 MCHC 35.3 RDW 13.0 Plt Count 154 L MPV 10.4 Immature Gran % (Auto) 0.3 Neut % (Auto) 80.5 H Lymph % (Auto) 11.6 L Meade % (Auto) 6.3 Eos % (Auto) 0.8 Baso % (Auto) 0.5 Lymph # (Auto) 0.9 L Meade # (Auto) 0.5 Eos # (Auto) 0.1 Baso # (Auto) 0.0 Abs Immat Gran (auto) 0.02 Absolute Neuts (auto) 6.0 Absolute Nucleated RBC 0.000 Nucleated RBC % (auto) 0.0 Smear Tech's Comments PT 13.0 H INR 1.1 aPTT Heparin Protocol 28.2 L D-Dimer High Sensitivty 912 Anion Gap 10 L Estim Creat Clear Calc 94.9 Estimated GFR > 60 Random Glucose 103 Lactic Acid 1.2 Calcium 8.3 L D Magnesium 1.9 Total Bilirubin 0.7 Direct Bilirubin 0.3 AST 29 ALT 19 Alkaline Phosphatase 125 H B-Natriuretic Peptide 100 Total Protein 6.0 L Albumin 3.0 L TSH 3.40 Urine Color Urine Appearance Urine pH Ur Specific [place] Urine Protein Urine Glucose (UA) Urine Ketones Urine Blood Urine Nitrite Ur Leukocyte Esterase Urine RBC Urine WBC Ur Squamous Epith Cells Urine Bacteria Hyaline Casts Influenza Type A (PCR) Influenza Type B (PCR) RSV RNA Qual (PCR) SARS-CoV-2 RNA (RT-PCR) Imaging Radiologist's Impressions: Impressions Cervical Spine CT 02/09/25 12:40 IMPRESSION: Anterior cervical fusion with intact metallic plate and screws as well as intervertebral body disc spacer placement from C3 to C5. Grade 1 anterolisthesis C4-5 on a degenerative basis. Partially calcified pannus formation with associated degenerative changes in the periodontal C1 region. Fleischner guidelines were followed. Electronically signed by: Kartik Saleh MD 02/09/2025 02:38 PM EDT RP Chest X-Ray 02/09/25 12:40 IMPRESSION: Probable bibasilar subsegmental atelectasis. Electronically signed by: Cj Martino MD 02/09/2025 12:57 PM EDT RP Chest X-Ray 02/10/25 07:08 IMPRESSION: Acute on chronic airspace disease involving mostly the left lower lung lobe/lingula. Elevated left hemidiaphragm, chronic suggesting left phrenic paralysis. Electronically signed by: Kartik Saleh MD 02/10/2025 08:03 AM EDT RP Chest CTA 02/10/25 07:57 IMPRESSION: Pulmonary emboli in the left lower lobe. Cardiomegaly with right ventricular dilatation may represent right heart strain. Clinical correlation is recommended. Findings were discussed with Dr. Peralta on 02/10/2025 at 9:13 AM. Electronically signed by: Cj Martino MD 02/10/2025 09:13 AM EDT RP Assessment and Plan (1) Pulmonary emboli: Qualifiers: Acute cor pulmonale presence: without acute cor pulmonale Chronicity: a cute Pulmonary embolism type: unspecified Qualified Code(s): I26.99 - Other pulmonary embolism without acute cor pulmonale Status: Acute (2) Atrial fibrillation with rapid ventricular response: Status: Acute Plan 84 yo F with recent neurosugery who presents with weakness. Initial work up did not reveal any significant findings and he was awaiting PT eval for rehab placement. This AM he went into new on set A. fib with RVR and subsequent work up reveals a LLL PE. He will be admitted for further care. 1. New onset A. Fib with RVR rates 100-130s; BP around 100-105 systolic; s/p PO and IV metoprolol given low BP, will give IV dig for now and hold caridzem gtt cardiology consult question if related to underlying PE 2. Provoked acute PE recent neurosurgy (01/11) lovenox 1mg/kg BID CTA showing cardiomegaly + RV dilatation - echo to eval for RV function consider vascular consult pending echo 3. CAD s/p PCI x 2 continue asa/statin/bb 4. HTN BP on the softer side, hold non BB meds 5. BPH continue baseline meds 6. Chronic samaniego continue routine samaniego care pt with chronic samaniego -- UA not impressive and pt endorses no symptoms, doubt UTI --> will stop antbiotics; CXR with LL infiltrates, initially concern over pneumonia but CTA showing atelectasis therefore, no need for antibiotics; pt does not have any infectious etiology at this time and therefore, does not have sepsis; hold off on all antibiotics and monitor DNR/DNI (confirmed with pt) Reports HCPs as primary: , Judith; secondary: son, Gordo. Quality Stroke Does the patient have a stroke diagnosis?: No VTE Prior VTE?: No VTE Risk Level:: Medical - moderate - high VTE Device Contraindication: N/A - Device Ordered VTE Drug Contraindication: N/A - Med Ordered
--- NOTE | 2025-02-10 11:02 | PC.NURSE ---
Report received from JOSETTE Bond. Taken over care at this time.
--- NOTE | 2025-02-10 12:00 | CA_ITS ---
Transthoracic Echocardiogram Patient (Last, First, Middle): Gordo Bullock H Gender: Male Date of : 1940 Age: 84 Procedure Date: 02/10/2025 Procedure Type: Transthoracic Echocardiogram Location: ER Height: 165.1 cm Weight: 75.3 kg BSA: 1.83 m2 Heart Rate: bpm BP: 128 / 79 mmHg Canvass Manager: TO Referring MD: Lucien Knapp MD Symptoms: new on set a. fib, PE, to eval for right heart str Study Quality: Fair/Contrast Conclusions: - Normal left ventricular cavity size. There is normal left ventricular wall thickness. The left ventricular systolic function is hyperdynamic. The visually estimated ejection fraction is >70%. - Normal right ventricular cavity size and systolic function. - Significantly elevated right atrial pressure. Mild pulmonary hypertension is present. Findings Procedure Information Contrast agent, definity, is being given per protocol without apparent complications. Left Ventricle Normal left ventricular cavity size. There is normal left ventricular wall thickness. The left ventricular systolic function is hyperdynamic. The visually estimated ejection fraction is >70%. There is no evidence of regional wall motion abnormalities. Diastolic function is indeterminate on the basis of available data. Right Ventricle Normal right ventricular cavity size and systolic function. Atria The left atrium is mildly dilated. The right atrium is normal in size. Aortic Valve There is a normal trileaflet aortic valve. There is no aortic valve stenosis. There is no aortic valve regurgitation. Mitral Valve The mitral valve appears normal. There is trace mitral valve regurgitation. There is no mitral valve stenosis. Pulmonic Valve The pulmonic valve is likely normal. Tricuspid Valve Normal tricuspid valve structure. There is trace tricuspid valve regurgitation. The right ventricular systolic pressure is 39 mmHg. Significantly elevated right atrial pressure. Mild pulmonary hypertension is present. Great Vessels All visible segments of the aorta are normal in size. The visualized portions of the pulmonary artery and branches are normal. Venous The inferior vena cava is dilated and does not collapse with inspiration. Pericardium/Pleural There is no evidence of pericardial effusion. Prior Study Comparison No prior study available for comparison. Measurements 2D Linear Measurements IVSd: 0.92 0.6-0.9/0.6-1.0 cm LVIDd: 3.68 3.9-5.3/4.2-5.9 cm LVIDd Index: 2.01 2.4-3.2/2.2-3.1 cm/m2 LVIDs: 2.52 2.0-3.6 cm LVPWd: 0.94 0.7-1.1 cm LV Mass: 124.91 67-162/88-224 g LV Mass Index: 68.26 43-95/49-115 g/m2 LVOT Diam: 2.00 3.0+(-)1.3 cm 2D Systolic Function EF 4C: 67.40 >55% Mitral Valve MV Pk E: 1.08 MV Decel Time: 142.00 E'Lateral: 10.40 E'Medial: 6.96 E/E' Med: 15.50 E/E' Lat: 10.40 PHT: 42.00 MVA PHT: 5.[address]: 8.48 Aortic Valve AoV Pk David: 1.42 AoV Mn David: 0.91 AoV VTI: 0.25 AoV Pk Grad: 8.00 Aov Mn Grad: 4.00 MARLYN Cont.VTI: 2.20 LVOT LVOT Pk David: 1.00 LVOT Mn David: 0.75 LVOT VTI: 0.18 LVOT Pk Grad: 4.00 LVOT Mn Grad: 2.00 LVOT Diam: 2.00 LVOT Area: 3.14 Diastolic Function MV Pk E: 1.08 E'Medial: 6.96 E/E' Med: 15.50 E' Laterial: 10.40 E/E' Lat: 10.40 Right Ventricle TAPSE (mm): 15.30 TVS' David: 14.70 Tricuspid Valve TR Pk David: 2.43 TR Pk Grad: 24.00 RA Press: 15.00 RVSP: 39.00 Great Vessels Aorta Sinus of Valsalva: 3.67 2.0-3.5 cm Ao Asc: 3.60 2.1-3.4 cm Updated in Other Vendor System with Status of Final Amanuel Tejada MD electronically signed on 02/10/2025 8:07:00 PM with status of Final
[2025-02-10] MEDS: Digoxin 0.5 MG/2 ML AMPUL 0.25 MG IVPUSH (12:33)
--- NOTE | 2025-02-10 12:53 | PHA.MEDREC ---
Pharmacy Consult ? Medication Reconciliation Pharmacy has completed the medication reconciliation.Med rec complete, spoke to patients who confirmed the prostate medications have been discontinued as well as lisinopril and amlodipine
--- NOTE | 2025-02-10 13:00 | PC.NURSE ---
Pt. eating and at bedside at this time. Pt. appears to be in no distress, tolerating food and drink. Call martel with in reach.
[2025-02-10] MEDS: 0.9 % Sodium Chloride Flush 3 ML SYRINGE IVFLUSH (17:31)
--- NOTE | 2025-02-10 18:16 | PC.NURSE ---
Pt. eating at this time. at bedside.
[2025-02-11] VITALS (8 sets, daily range): BP systolic 95–170; BP diastolic 64–88; PULSE 69–79; RESP 18–20; TEMP 36.4–37.2; O2SAT 92–98
[2025-02-11 06:47] LABS: INTERNATIONAL NORM RATIO 1.1 (0.9-1.1); Prothrombin Time 13.1 SEC (10.9-12.4)
[2025-02-11 06:59] LABS: Hematocrit 43.4 % (42.0-52.0); Hemoglobin 14.9 g/dl (14.0-18.0); Mean Corpuscular HGB Conc 34.3 g/dl (31.0-36.0); Mean Corpuscular Hemoglobin 30.5 pg (27.0-33.0); Mean Corpuscular Volume 88.8 fL (80.0-98.0); Mean Platelet Volume 10.7 fL (9.4-12.4); Platelet Count 192 X10*3/uL (160-400); Red Blood Count 4.89 X10*6/uL (4.60-5.80); Red Cell Distribution Width 12.8 % (11.0-16.0)
[2025-02-11 07:01] LABS: Anion Gap 11 (12-20); Blood Urea Nitrogen 12 mg/dL (9-16); Calcium 8.9 mg/dL (8.4-10.2); Carbon Dioxide 25 mmol/L (22-29); Chloride 104 mmol/L (96-108); Creatinine Clr Calc Pharmacy 86.9; Estimated Glomerular Filt Rate > 60; Glucose Random 108 mg/dL (60-115); Potassium 3.9 mmol/L (3.3-5.1); Sodium 136 mmol/L (135-145)
[2025-02-11] MEDS: Atorvastatin Calcium 80 MG TABLET PO (07:42)
[2025-02-11] MEDS: Isosorbide Mononitrate 30 MG TAB.ER.24H PO (07:42)
[2025-02-11] MEDS: Metoprolol Succinate ER 25 MG TAB.ER.24H PO (07:42)
[2025-02-11] MEDS: Aspirin Enteric Coated 81 MG TABLET.DR PO (07:42)
[2025-02-11] MEDS: 0.9 % Sodium Chloride Flush 3 ML SYRINGE IVFLUSH ×3 (07:42→21:12)
[2025-02-11] MEDS: Enoxaparin Sodium 80 MG/0.8 ML SYRINGE SUBCUT ×2 (07:43→21:10)
--- NOTE | 2025-02-11 09:28 | MHC.CM.PN ---
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 IS RECOMMENDING. PT VERIFIES HCP/PCP ON FILE ARE CORRECT. PT USES [facility] AND [facility] FOR OUPT SERVICES.
--- NOTE | 2025-02-11 11:48 | PM.CNCAR ---
History of Present Illness History of Present Illness Date of Service: 02/11/25 Requesting physician: Ronda Muñoz Chief complaint: Weakness, PE, Afib Narrative: [age] year gentleman who recently had neurosurgery at [facility]. He has been experiencing progressive weakness in the arms and legs and he is saying that his neurosurgeon is aware of that. He came in mainly for weakness but further workup has shown pulmonary embolism and CT raise concern for RV strain. At the same time he also developed AFib with RVR which was self-limiting. He is denying any shortness of breath currently. Denying any chest pains. His main complaint is weakness. This is related to his neurological issues. Taking Eliquis currently. He has seen Dr. Mg Candelario in the past and we will be following with him as outpatient. 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, stage 2 Surgical History Surgical History History of wisdom tooth extraction History of cataract surgery History of colonoscopy (~04/2013) History of heart artery stent History of PTCA Social History Social History Household Members: Spouse and Children Housing: House Do you presently have visiting nurse or other home services: Yes Unable to assess alcohol history related to: Unknown Patient Tobacco Use Status: Former Tobacco user Smoked in Last 30 Days: No Use of substances other than those prescribed or required for medical reasons: No Currently Displaying Signs/Symptoms of Drug Intoxication Withdrawal: No Have you been hit, kicked, punched, or otherwise hurt by someone within the past year? If so, by whom?: No Do you feel safe in your current relationship?: Yes Is there a partner from a previous relationship who is making you feel unsafe now?: No Are you made to feel afraid or neglected: No Advance Directives: No Advance Directives Information Provided: No Advance Directives on File: No Do you have a plan to hurt others: No Plan Recently lost weight without trying: No Nutrition Risks: No Nutritional Risk service: No Meds Allergies Allergy/AdvReac Type Severity Reaction Status Date / Time No Known Allergies Allergy Verified 02/09/25 12:37 [No Known Allergies*] Active Medications: Current Medications Acetaminophen (Acetaminophen 325 Mg Tablet) 650 mg PO Q6H PRN PRN Reason: Pain, Mild 1-3,fever,headache Aspirin (Aspirin Enteric Coated 81 Mg Tablet.Dr) 81 mg PO DAILY [facility] Last Admin: 02/11/25 07:42 Dose: 81 mg Atorvastatin Calcium (Atorvastatin Calcium 80 Mg Tablet) 80 mg PO DAILY [facility] Last Admin: 02/11/25 07:42 Dose: 80 mg Calcium Carbonate (Calcium Carbonate 750 Mg Tab.Chew) 750 mg PO Q4H PRN PRN Reason: Heartburn Enoxaparin Sodium (Enoxaparin Sodium 80 Mg/0.8 Ml Syringe) 80 mg SUBCUT Q12H [facility] Last Admin: 02/11/25 07:43 Dose: 80 mg Isosorbide Mononitrate (Isosorbide Mononitrate 30 Mg Tab.Er.24h) 30 mg PO DAILY [facility]; Protocol Last Admin: 02/11/25 07:42 Dose: 30 mg Magnesium Hydroxide (Milk Of Magnesia 30 Ml Oral.Susp) 30 ml PO DAILY PRN PRN Reason: Constipation Melatonin (Melatonin 3 Mg Tablet) 6 mg PO BEDTIME PRN PRN Reason: Insomnia Metoprolol Succinate (Metoprolol Succinate Er 25 Mg Tab.Er.24h) 25 mg PO DAILY [facility]; Protocol Last Admin: 02/11/25 07:42 Dose: 25 mg Sodium Chloride (0.9 % Sodium Chloride Flush 3 Ml Syringe) 3 ml IVFLUSH QSHIFT [facility] Last Admin: 02/11/25 07:42 Dose: 3 ml Home Medications ?Medication ?Instructions ?Recorded ?Confirmed ?Last Taken ?Type atorvastatin 80 mg tablet 80 mg PO DAILY 10/08/21 02/09/25 02/08/25 History metoprolol succinate 25 mg 25 mg PO DAILY 10/08/21 02/09/25 02/08/25 History tablet,extended release 24 hr timolol maleate 0.5 % eye drops 1 drp ophthalmic (eye) DAILY 10/08/21 02/10/25 Unknown History aspirin 81 mg tablet,delayed 81 mg PO DAILY 01/31/25 02/09/25 02/09/25 History release isosorbide mononitrate 30 mg 30 mg PO DAILY 01/31/25 02/09/25 02/08/25 History tablet,extended release 24 hr nitroglycerin 0.4 mg sublingual 0.4 mg sublingual Q5M PRN Angina 01/31/25 02/09/25 Unknown History tablet furosemide 20 mg tablet 20 mg PO DAILY 02/09/25 02/09/25 3 Months Ago History ~11/11/24 ciclopirox 0.77 % topical cream 1 appl topical BID 02/10/25 02/10/25 Unknown History Physical Exam Vital Signs: Vital Signs: Last Vital Signs Temp 97.6 F 02/11/25 10:56 Pulse 69 02/11/25 10:56 Resp 18 02/11/25 10:56 BP 122/64 02/11/25 10:56 Pulse Ox 98 02/11/25 10:56 O2 Del Method Room Air 02/11/25 10:56 BMI result Body Mass Index 25.5 GENERAL APPEARANCE: in no acute distress, pleasant. NECK: no carotid bruit, no jugular venous distention. SKIN: no suspicious lesions, warm and dry. HEART: no murmurs, regular rate and rhythm. LUNGS: clear to auscultation bilaterally. ABDOMEN: soft, nontender. EXTREMITIES: no edema. PERIPHERAL PULSES: equal. NEUROLOGIC: Weakness upper extremities and legs. Objective Labs and Meds 02/11/25 06:20 02/11/25 06:20 Lab results: Laboratory Results - last 24 hr 02/11/25 06:20 WBC 9.0 RBC 4.89 Hgb 14.9 Hct 43.4 MCV 88.8 MCH 30.5 MCHC 34.3 RDW 12.8 Plt Count 192 MPV 10.7 Absolute Nucleated RBC 0.000 Nucleated RBC % (auto) 0.0 PT 13.1 H INR 1.1 Sodium 136 Potassium 3.9 Chloride 104 Carbon Dioxide 25 Anion Gap 11 L BUN 12 Creatinine 0.54 Estim Creat Clear Calc 86.9 Estimated GFR > 60 Random Glucose 108 Calcium 8.9 D Assessment and Plan (1) Pulmonary emboli: Qualifiers: Acute cor pulmonale presence: without acute cor pulmonale Chronicity: acute Pulmonary embolism type: unspecified Qualified Code(s): I26.99 - Other pulmonary embolism without acute cor pulmonale Status: Acute (2) PAF (paroxysmal atrial fibrillation): Status: Acute Plan Pleasant 84 year gentleman who is presenting with pulmonary embolism and developed AFib with RVR. This was self-limiting and he is back in sinus rhythm at this point. Not unusual to develop atrial fibrillation in the setting of pulmonary embolism. He is on anticoagulation appropriately. This should be continued at least for 3 months. Agree with beta-blockers. Echocardiography has not shown any RV strain and in fact his LV RV function appeared to be preserved. He will follow up with Dr. Mg Candelario. He will need Holter monitoring through his office to make sure that he does not get recurrent episodes of atrial fibrillation. If he does then given his advanced age we may have to consider long-term anticoagulation but that will require a discussion because of his ongoing neurological issues and risk of falls etc.. Thank you for allowing me to participate in the care of your patient. Please feel free to contact me if you have any questions. Procedures Date of Service Date of Service: 02/11/25
--- NOTE | 2025-02-11 12:21 | P.PNIM_ITS ---
Subjective Subjective Date of Service: 02/11/25 Interval History: Seen and examined this morning Follow-up for PE/atrial fibrillation Converted back to normal sinus rhythm Reporting decreased range of motion in bilateral upper extremities Review of Systems Review of Systems: Yes all other systems are reviewed and are negative Constitutional Constitutional: Denies chills and Denies fever(s) Cardiovascular Cardiovascular: Denies chest pain and Denies palpitations Endocrine Endocrine: Denies palpitations Physical Exam 2 Vital Signs: Vital Signs: Last Vital Signs Temp 97.6 F 02/11/25 10:56 Pulse 69 02/11/25 10:56 Resp 18 02/11/25 10:56 BP 122/64 02/11/25 10:56 Pulse Ox 98 02/11/25 10:56 O2 Del Method Room Air 02/11/25 10:56 BMI result Body Mass Index 25.5 Const: General: cooperative, comfortable, no acute distress, alert and awake Nutritional Appearance: average body habitus Orientation/consciousness: p atient oriented x3 Resp: Effort & Inspection: normal respiratory effort, able to speak in complete sentences, no respiratory distress and no use of accessory muscles Cardio: Rate: regular rate Neuro: General: patient oriented x3 Extrem: Other: decreased active ROM b/l shoulders Objective Data Active Medications Acetaminophen (Acetaminophen 325 Mg Tablet) 650 mg PO Q6H PRN PRN Reason: Pain, Mild 1-3,fever,headache Aspirin (Aspirin Enteric Coated 81 Mg Tablet.Dr) 81 mg PO DAILY [facility] Last Admin: 02/11/25 07:42 Dose: 81 mg Documented By: ANAYA Atorvastatin Calcium (Atorvastatin Calcium 80 Mg Tablet) 80 mg PO DAILY [facility] Last Admin: 02/11/25 07:42 Dose: 80 mg Documented By: ANAYA Calcium Carbonate (Calcium Carbonate 750 Mg Tab.Chew) 750 mg PO Q4H PRN PRN Reason: Heartburn Enoxaparin Sodium (Enoxaparin Sodium 80 Mg/0.8 Ml Syringe) 80 mg SUBCUT Q12H [facility] Last Admin: 02/11/25 07:43 Dose: 80 mg Documented By: ANAYA Isosorbide Mononitrate (Isosorbide Mononitrate 30 Mg Tab.Er.24h) 30 mg PO DAILY [facility]; Protocol Last Admin: 02/11/25 07:42 Dose: 30 mg Documented By: ANAYA Magnesium Hydroxide (Milk Of Magnesia 30 Ml Oral.Susp) 30 ml PO DAILY PRN PRN Reason: Constipation Melatonin (Melatonin 3 Mg Tablet) 6 mg PO BEDTIME PRN PRN Reason: Insomnia Metoprolol Succinate (Metoprolol Succinate Er 25 Mg Tab.Er.24h) 25 mg PO DAILY [facility]; Protocol Last Admin: 02/11/25 07:42 Dose: 25 mg Documented By: ANAYA Sodium Chloride (0.9 % Sodium Chloride Flush 3 Ml Syringe) 3 ml IVFLUSH QSHIFT [facility] Last Admin: 02/11/25 07:42 Dose: 3 ml Documented By: ANAAY Labs 02/11/25 06:20 02/11/25 06:20 Labs: Laboratory Results - last 24 hr 02/11/25 06:20 MCV 88.8 MCH 30.5 MCHC 34.3 RDW 12.8 Plt Count 192 MPV 10.7 Absolute Nucleated RBC 0.000 Nucleated RBC % (auto) 0.0 PT 13.1 H INR 1.1 Anion Gap 11 L Estim Creat Clear Calc 86.9 Estimated GFR > 60 Random Glucose 108 Calcium 8.9 D Microbiology Microbiology Results: Microbiology 02/10/25 09:11 Blood Culture - Preliminary Blood - Venous No growth after 24 hours. 02/10/25 09:11 Blood Culture - Preliminary Blood - Venous No growth after 24 hours. 02/09/25 15:45 Urine Culture - Preliminary Urine clean catch - Clean Catch Midstream Proteus species Assessment and Plan (1) Pulmonary emboli: Status: Acute (2) PAF (paroxysmal atrial fibrillation): Status: Acute Plan This is an 84 yo M with recent neurosurgery who presents with weakness. Initial work up did not reveal any significant findings and he was awaiting PT eval for rehab placement. On the day of admission he went into new on set A. fib with RVR and subsequent work up reveals a LLL PE. New onset A. Fib with RVR rates 100-130s; BP around 100-105 systolic on admission ; s/p PO and IV metoprolol Converted back to normal sinus rhythm Continue p.o. metoprolol Currently anticoagulated with Lovenox, will transition to p.o. Eliquis in am Provoked acute PE recent neurosurgy (01/11) lovenox 1mg/kg BID CTA showing cardiomegaly + RV dilatation - echo with normal RV function seen by vascular - no acute intervention recommended at this time No hypoxia Transition to p.o. Eliquis in a.m. as above Ataxia/upper extremity weakness ? 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 s/p c3/4,c4/5 anterior cervical diskectomy and fusion with auto and allograft and plating 01/11 Per notes from [facility], surgery would not improve symptoms but rather was to prevent progression of current symptoms; completed physical therapy at acute rehab pt reports worsening of weakness - will consult neurology; of note did have op f/u with neurosurgery 02/07 and was cleared from their perspective and doing well at that time; unclear how much sx have changed since then seen by PT/OT - recommended acute rehab CAD s/p PCI x 2 continue asa/statin/bb/Imdur HTN BP stable BPH ? 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 Quality Stroke Does the patient have a stroke diagnosis?: No VTE Prior VTE?: No VTE Risk Level:: Medical - moderate - high VTE Device Contraindication: N/A - Device Ordered VTE Drug Contraindication: N/A - Med Ordered
--- NOTE | 2025-02-11 12:45 | HO.VASCPN ---
Subjective Subjective Date of Service: 02/11/25 Interval history: We were consulted today for Gordo, a pleasant 84 yo male patient for concerns of a left lower lobe pulmonary embolism found on CTA. He presented to the ER on 02/09 Physical Exam Vital Signs: Vital Signs: Last Vital Signs Temp 97.6 F 02/11/25 10:56 Pulse 69 02/11/25 10:56 Resp 18 02/11/25 10:56 BP 122/64 02/11/25 10:56 Pulse Ox 98 02/11/25 10:56 O2 Del Method Room Air 02/11/25 10:56 BMI result Body Mass Index 25.5 Progress Note: A&P Time Spent With Patient Time: Total time managing care of this patient today ____ minutes. Procedures Date of Service Date of Service: 02/11/25 Quality Stroke Does the patient have a stroke diagnosis?: No VTE Prior VTE?: No VTE Risk Level:: Medical - moderate - high VTE Device Contraindication: N/A - Device Ordered VTE Drug Contraindication: N/A - Med Ordered
--- NOTE | 2025-02-11 13:56 | P.CONGS_ITS ---
History of Present Illness Consult details Consult date: 02/11/25 Narrative: We were consulted on Gordo, for concerns of a left lower lobe pulmonary embolism, found on CT yesterday. He has a medical hx pertinent for CAD with stents, GERD, NSTEMI, BPH with indwelling Nolan, and he is s/p C 3/4 and 4/5 ACDF due to cervical stenosis, performed at [facility] on 01/11/25. He presented to the ER on 02/09 with concerns of increasing weakness and fatigue with difficulty ambulating for 5d. He was + for a UTI as well as bibasilar subsegmental atelectasis found on CXR. He had Afib with RVR and required admission. A chest CTA performed yesterday revealed a pulmonary embolism in the left lower lobe as well as cardiomegaly with right heart strain. TTE reveals significantly elevated right atrial pressure with no right ventricular strain and mild pulmonary HTN. The pt denies any shortness of breath, CP, or diff breathing. He states he has been having difficulty with breathing for over a year now and does not feel that it is worse. He states his breathing is worse when he lays down. He is followed by [facility]iology, Dr Eduardo, and saw him in Nov. He is former smoker, whom quit in 1974. Review of Systems 2 Constitutional: Constitutional: Reports as per HPI and Denies weakness ENT: Reports Normal hearing present and Denies dizziness Cardiovascular: Cardiovascular: Reports as per HPI, Denies chest pain, Denies chest pain at rest, Denies chest pain with activity, Denies dyspnea and Denies dyspnea on exertion Respiratory: Respiratory: Reports as per HPI, Denies cough, Denies dyspnea and Denies dyspnea on exertion Gastrointestinal: Gastrointestinal: Reports as per HPI, Denies abdominal pain, Denies nausea and Denies vomiting Musculoskeletal: Musculoskeletal: Denies numbness Integumentary/Breasts: Skin/Breast: Reports as per HPI, Denies erythema and Denies wounds Neurologic: Reports Normal hearing present, Denies dizziness, Denies numbness, Denies Sensory deficit (Neuro) and Denies weakness Psychiatric: Psychiatric: Reports no additional psychiatric complaints Endocrine: Endocrine: Reports no additional endocrine complaints PMFSH Past Medical History Medical History Weakness Hospital discharge follow-up Dyspnea on exertion Vitamin D deficiency Vasovagal syncope Elevated PSA GERD (gastroesophageal reflux disease) Mild hypercholesterolemia Hypertension Coronary artery disease Walker as ambulation aid BPH (benign prostatic hyperplasia) Indwelling Nolan catheter calcification UTI (urinary tract infection) NSTEMI (non-ST elevated myocardial infarction) 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, stage 2 Surgical History Surgical History History of wisdom tooth extraction History of cataract surgery History of colonoscopy (~04/2013) History of heart artery stent History of PTCA Social History Social History Household Members: Spouse and Children Housing: House Do you presently have visiting nurse or other home services: Yes Unable to assess alcohol history related to: Unknown Patient Tobacco Use Status: Former Tobacco user Smoked in Last 30 Days: No Use of substances other than those prescribed or required for medical reasons: No Currently Displaying Signs/Symptoms of Drug Intoxication Withdrawal: No Have you been hit, kicked, punched, or otherwise hurt by someone within the past year? If so, by whom?: No Do you feel safe in your current relationship?: Yes Is there a partner from a previous relationship who is making you feel unsafe now?: No Are you made to feel afraid or neglected: No Advance Directives: No Advance Directives Information Provided: No Advance Directives on File: No Do you have a plan to hurt others: No Plan Recently lost weight without trying: No Nutrition Risks: No Nutritional Risk service: No Meds Allergies Allergy/AdvReac Type Severity Reaction Status Date / Time No Known Allergies Allergy Verified 02/09/25 12:37 [No Known Allergies*] Active Medications: Current Medications Acetaminophen (Acetaminophen 325 Mg Tablet) 650 mg PO Q6H PRN PRN Reason: Pain, Mild 1-3,fever,headache Aspirin (Aspirin Enteric Coated 81 Mg Tablet.) 81 mg PO DAILY [facility] Last Admin: 02/11/25 07:42 Dose: 81 mg Atorvastatin Calcium (Atorvastatin Calcium 80 Mg Tablet) 80 mg PO DAILY [facility] Last Admin: 02/11/25 07:42 Dose: 80 mg Calcium Carbonate (Calcium Carbonate 750 Mg Tab.Chew) 750 mg PO Q4H PRN PRN Reason: Heartburn Enoxaparin Sodium (Enoxaparin Sodium 80 Mg/0.8 Ml Syringe) 80 mg SUBCUT Q12H [facility] Last Admin: 02/11/25 07:43 Dose: 80 mg Isosorbide Mononitrate (Isosorbide Mononitrate 30 Mg Tab.Er.24h) 30 mg PO DAILY [facility]; Protocol Last Admin: 02/11/25 07:42 Dose: 30 mg Magnesium Hydroxide (Milk Of Magnesia 30 Ml Oral.Susp) 30 ml PO DAILY PRN PRN Reason: Constipation Melatonin (Melatonin 3 Mg Tablet) 6 mg PO BEDTIME PRN PRN Reason: Insomnia Metoprolol Succinate (Metoprolol Succinate Er 25 Mg Tab.Er.24h) 25 mg PO DAILY [facility]; Protocol Last Admin: 02/11/25 07:42 Dose: 25 mg Sodium Chloride (0.9 % Sodium Chloride Flush 3 Ml Syringe) 3 ml IVFLUSH QSHIFT [facility] Last Admin: 02/11/25 07:42 Dose: 3 ml Home Medications ?Medication ?Instructions ?Recorded ?Confirmed ?Last Taken ?Type atorvastatin 80 mg tablet 80 mg PO DAILY 10/08/21 02/09/25 02/08/25 History metoprolol succinate 25 mg 25 mg PO DAILY 10/08/21 02/09/25 02/08/25 History tablet,extended release 24 hr timolol maleate 0.5 % eye drops 1 drp ophthalmic (eye) DAILY 10/08/21 02/10/25 Unknown History aspirin 81 mg tablet,delayed 81 mg PO DAILY 01/31/25 02/09/25 02/09/25 History release isosorbide mononitrate 30 mg 30 mg PO DAILY 01/31/25 02/09/25 02/08/25 History tablet,extended release 24 hr nitroglycerin 0.4 mg sublingual 0.4 mg sublingual Q5M PRN Angina 01/31/25 02/09/25 Unknown History tablet furosemide 20 mg tablet 20 mg PO DAILY 02/09/25 02/09/25 3 Months Ago History ~11/11/24 ciclopirox 0.77 % topical cream 1 appl topical BID 02/10/25 02/10/25 Unknown History Physical Exam 2 Vital Signs: Vital Signs: Last Vital Signs Temp 97.6 F 02/11/25 10:56 Pulse 69 02/11/25 10:56 Resp 18 02/11/25 10:56 BP 122/64 02/11/25 10:56 Pulse Ox 98 02/11/25 10:56 O2 Del Method Room Air 02/11/25 10:56 BMI result Body Mass Index 25.5 Const: General: comfortable and no acute distress O rientation/consciousness: patient oriented x3 HEENT: Ears: hearing grossly normal bilaterally Resp: Other: Slight increase in work of breathing Effort & Inspection: able to speak in complete sentences Auscultation: c lear to auscultation bilaterally Cardio: Rate: regular rate Rhythm: regular rhythm Heart sounds: S1 normal heart sound present and S2 normal heart sound present Bruits: no abdominal aortic bruits, no carotid bruits, no femoral bruits and no renal bruits GI: Palpation (GI): No Abdominal aortic bruit present Neuro: General: patient oriented x3 Cranial nerves: Yes Normal hearing present Sensory Exam: No Sensory deficit (Neuro) Results Labs 02/11/25 06:20 02/11/25 06:20 Labs: Abnormal lab results 02/11/25 Range/Units 06:20 PT 13.1 H (10.9-12.4) SEC Anion Gap 11 L (12-20) Short CBC 02/11/25 Range/Units 06:20 WBC 9.0 (4.8-10.8) X10*3/uL Hgb 14.9 (14.0-18.0) g/dl Hct 43.4 (42.0-52.0) % Plt Count 192 (160-400) X10*3/uL BMP 02/11/25 06:20 Sodium 136 Potassium 3.9 Chloride 104 Carbon Dioxide 25 BUN 12 Creatinine 0.54 Calcium 8.9 D Urine 02/09/25 Range/Units 14:29 Urine Color Yellow Urine Appearance Clear Urine pH 7.5 (5.0-9.0) Ur Specific [place] <= 1.005 (1.005-1.025) Urine Protein Negative (Neg-Trace) mg/dL Urine Glucose (UA) Negative (Negative) mg/dL All other labs normal. Assessment and Plan (1) Pulmonary emboli: Qualifiers: Acute cor pulmonale presence: without acute cor pulmonale Chronicity: u nspecified Pulmonary embolism type: unspecified Qualified Code(s): I26.99 - Other pulmonary embolism without acute cor pulmonale Status: Acute Plan We were consulted on Gordo, for a left lower lobe pulmonary embolism found on chest CTA yesterday. He was started on Lovenox and has been on Eliquis. He is being followed by Cardiology. Echo reveals no right ventricular strain and they recommend continuing on Eliquis and following up outpatient with his Marketing Intelligence Analyst. There is no acute vascular surgical intervention at this point. We also recommend continuing on Eliquis for at least 3m with follow up outpatient. We will continue to monitor. If there are any questions or concerns, please do not hesitate to reach out to us. Procedures Date of Service Date of Service: 02/11/25
[2025-02-12] VITALS (7 sets, daily range): BP systolic 96–161; BP diastolic 61–97; PULSE 70–86; RESP 14–18; TEMP 36.1–37.1; O2SAT 94–98
--- NOTE | 2025-02-12 02:25 | PC.NURSE ---
Patient found kneeling at bedside by other staff member, stated bed alarm was going off. Patient VSS, neuros unchanged. Patient denies any pain or injury anywhere on body. No redness or obvious injury to knees. Ship Fitter in to see patient as well as charge nurse. Ship Fitter Jazzy telephoned MD and no new orders.
[2025-02-12 07:11] LABS: Hematocrit 43.2 % (42.0-52.0); Hemoglobin 15.1 g/dl (14.0-18.0); Mean Corpuscular Hemoglobin 30.8 pg (27.0-33.0); Mean Platelet Volume 10.2 fL (9.4-12.4); Platelet Count 209 X10*3/uL (160-400); Red Blood Count 4.91 X10*6/uL (4.60-5.80); Red Cell Distribution Width 12.7 % (11.0-16.0); White Blood Count 7.2 X10*3/uL (4.8-10.8)
[2025-02-12] MEDS: Aspirin Enteric Coated 81 MG TABLET.DR PO (08:52)
[2025-02-12] MEDS: Atorvastatin Calcium 80 MG TABLET PO (08:52)
[2025-02-12] MEDS: Enoxaparin Sodium 80 MG/0.8 ML SYRINGE SUBCUT (08:52)
[2025-02-12] MEDS: Isosorbide Mononitrate 30 MG TAB.ER.24H PO (08:52)
[2025-02-12] MEDS: Metoprolol Succinate ER 25 MG TAB.ER.24H PO (08:52)
[2025-02-12] MEDS: 0.9 % Sodium Chloride Flush 3 ML SYRINGE IVFLUSH ×3 (08:53→19:20)
--- NOTE | 2025-02-12 11:04 | PM.NEUROCN ---
History of Present Illness Data of Consult Service Date: 02/12/25 Primary Care Provider: Aly Crespo MD HPI Reason for consult: Gait disorder 84 years old man I was asked to see for difficulty walking. Apparently he recently had cervical spine decompressive surgery for stenosis and myelopathy. He said that he has been using a walker at home. He was admitted in hospital for further worsening of his condition. There was no complaint of any significant headache or neck pain. He has a Nolan's catheter. There was no history of any sudden change in personality. 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, stage 2 Surgical History Surgical History History of wisdom tooth extraction History of cataract surgery History of colonoscopy (~04/2013) History of heart artery stent History of PTCA Social History Social History Household Members: Spouse and Children Housing: House Do you presently have visiting nurse or other home services: Yes Unable to assess alcohol history related to: Unknown Patient Tobacco Use Status: Former Tobacco user Smoked in Last 30 Days: No Use of substances other than those prescribed or required for medical reasons: No Currently Displaying Signs/Symptoms of Drug Intoxication Withdrawal: No Have you been hit, kicked, punched, or otherwise hurt by someone within the past year? If so, by whom?: No Do you feel safe in your current relationship?: Yes Is there a partner from a previous relationship who is making you feel unsafe now?: No Are you made to feel afraid or neglected: No Advance Directives: No Advance Directives Information Provided: No Advance Directives on File: No Do you have a plan to hurt others: No Plan Recently lost weight without trying: No Nutrition Risks: No Nutritional Risk service: No Meds Allergies Allergy/AdvReac Type Severity Reaction Status Date / Time No Known Allergies Allergy Verified 02/09/25 12:37 [No Known Allergies*] Active Medications: Current Medications Acetaminophen (Acetaminophen 325 Mg Tablet) 650 mg PO Q6H PRN PRN Reason: Pain, Mild 1-3,fever,headache Aspirin (Aspirin Enteric Coated 81 Mg Tablet.Dr) 81 mg PO DAILY [facility] Last Admin: 02/12/25 08:52 Dose: 81 mg Atorvastatin Calcium (Atorvastatin Calcium 80 Mg Tablet) 80 mg PO DAILY [facility] Last Admin: 02/12/25 08:52 Dose: 80 mg Calcium Carbonate (Calcium Carbonate 750 Mg Tab.Chew) 750 mg PO Q4H PRN PRN Reason: Heartburn Enoxaparin Sodium (Enoxaparin Sodium 80 Mg/0.8 Ml Syringe) 80 mg SUBCUT Q12H [facility] Last Admin: 02/12/25 08:52 Dose: 80 mg Isosorbide Mononitrate (Isosorbide Mononitrate 30 Mg Tab.Er.24h) 30 mg PO DAILY [facility]; Protocol Last Admin: 02/12/25 08:52 Dose: 30 mg Magnesium Hydroxide (Milk Of Magnesia 30 Ml Oral.Susp) 30 ml PO DAILY PRN PRN Reason: Constipation Melatonin (Melatonin 3 Mg Tablet) 6 mg PO BEDTIME PRN PRN Reason: Insomnia Metoprolol Succinate (Metoprolol Succinate Er 25 Mg Tab.Er.24h) 25 mg PO DAILY [facility]; Protocol Last Admin: 02/12/25 08:52 Dose: 25 mg Sodium Chloride (0.9 % Sodium Chloride Flush 3 Ml Syringe) [facility] Last Admin: 02/12/25 08:53 Dose: 3 ml Home Medications ?Medication ?Instructions ?Recorded ?Confirmed ?Last Taken ?Type atorvastatin 80 mg tablet 80 mg PO DAILY 10/08/21 02/09/25 02/08/25 History metoprolol succinate 25 mg 25 mg PO DAILY 10/08/21 02/09/25 02/08/25 History tablet,extended release 24 hr timolol maleate 0.5 % eye drops 1 drp ophthalmic (eye) DAILY 10/08/21 02/10/25 Unknown History aspirin 81 mg tablet,delayed 81 mg PO DAILY 01/31/25 02/09/25 02/09/25 History release isosorbide mononitrate 30 mg 30 mg PO DAILY 01/31/25 02/09/25 02/08/25 History tablet,extended release 24 hr nitroglycerin 0.4 mg sublingual 0.4 mg sublingual Q5M PRN Angina 01/31/25 02/09/25 Unknown History tablet furosemide 20 mg tablet 20 mg PO DAILY 02/09/25 02/09/25 3 Months Ago History ~11/11/24 ciclopirox 0.77 % topical cream 1 appl topical BID 02/10/25 02/10/25 Unknown History Physical Exam Vital Signs: Vital Signs: Last Vital Signs Temp 97.4 F 02/12/25 08:00 Pulse 86 02/12/25 08:00 Resp 18 02/12/25 08:00 BP 160/82 H 02/12/25 08:00 Pulse Ox 97 02/12/25 08:00 O2 Del Method Room Air 02/12/25 08:00 BMI result Body Mass Index 25.5 Neuro: Other: He is alert and awake with normal spontaneity of speech fluency comprehension and affect. He knew where he was. He was following simple commands. Face was symmetrical. Visual haney are full. Deep tendon reflexes were on the brisker side including knee reflexes with absent ankle reflexes. Right plantars was extensor on left was flexor. He could not stand on its own and with help he was quite unsteady with magnetic gait taking small steps. Speech was normal Results Labs 02/12/25 06:18 02/11/25 06:20 Labs: Short CBC 02/12/25 Range/Units 06:18 WBC 7.2 (4.8-10.8) X10*3/uL Hgb 15.1 (14.0-18.0) g/dl Hct 43.2 (42.0-52.0) % Plt Count 209 (160-400) X10*3/uL Microbiology Microbiology Results: Microbiology 02/09/25 15:45 Urine clean catch - Clean Catch Midstream Urine Culture - Final Proteus mirabilis 02/10/25 09:11 Blood - Venous Blood Culture - Preliminary No growth after 24 hours. 02/10/25 09:11 Blood - Venous Blood Culture - Preliminary No growth after 24 hours. Assessment and Plan (1) Multifactorial gait disorder: Status: Acute His previous imaging was not available for review. It was not in [facility] computer and I also looked at Nephros and could not fine. Maybe he had it in some other place. If of brain scan has not been done recently, an MRI of brain without contrast is recommended. Differential diagnosis is broad but and this age group would include normal-pressure hydrocephalus, vascular disease, or combination of degenerative and vascular disease of brain resulting in gait disorder. Procedures Date of Service Date of Service: 02/12/25
--- NOTE | 2025-02-12 14:39 | P.PNIM_ITS ---
Subjective Subjective Date of Service: 02/12/25 Interval History: Seen and examined this morning Follow-up for weakness No overnight events, Persistent clumsiness in hands Review of Systems Review of Systems: Yes all other systems are reviewed and are negative Constitutional Constitutional: Denies chills and Denies fever(s) Physical Exam 2 Vital Signs: Vital Signs: Last Vital Signs Temp 97.6 F 02/12/25 12:00 Pulse 70 02/12/25 12:00 Resp 18 02/12/25 12:00 BP 96/61 02/12/25 12:00 Pulse Ox 97 02/12/25 12:00 O2 Del Method Room Air 02/12/25 12:00 BMI result Body Mass Index 25.5 Const: General: cooperative, comfortable, no acute distress, alert and awake Nutritional Appearance: average body habitus Orientation/consciousness: p atient oriented x3 Resp: Effort & Inspection: normal respiratory effort, able to speak in complete sentences, no respiratory distress and no use of accessory muscles Cardio: Rate: regular rate Neuro: Other: equal sweeping compound blender strength bilaterally, bilateral lower extremity strength equal bilaterally; decreased active range of motion bilateral upper extremities; sensation intact all extremities General: patient oriented x3 Extrem: Other: decreased active ROM b/l shoulders Objective Data Active Medications Acetaminophen (Acetaminophen 325 Mg Tablet) 650 mg PO Q6H PRN PRN Reason: Pain, Mild 1-3,fever,headache Aspirin (Aspirin Enteric Coated 81 Mg Tablet.Dr) 81 mg PO DAILY [facility] Last Admin: 02/12/25 08:52 Dose: 81 mg Documented By: ANAYA Atorvastatin Calcium (Atorvastatin Calcium 80 Mg Tablet) 80 mg PO DAILY [facility] Last Admin: 02/12/25 08:52 Dose: 80 mg Documented By: ANAYA Calcium Carbonate (Calcium Carbonate 750 Mg Tab.Chew) 750 mg PO Q4H PRN PRN Reason: Heartburn Enoxaparin Sodium (Enoxaparin Sodium 80 Mg/0.8 Ml Syringe) 80 mg SUBCUT Q12H [facility] Last Admin: 02/12/25 08:52 Dose: 80 mg Documented By: ANAYA Isosorbide Mononitrate (Isosorbide Mononitrate 30 Mg Tab.Er.24h) 30 mg PO DAILY [facility]; Protocol Last Admin: 02/12/25 08:52 Dose: 30 mg Documented By: ANAYA Magnesium Hydroxide (Milk Of Magnesia 30 Ml Oral.Susp) 30 ml PO DAILY PRN PRN Reason: Constipation Melatonin (Melatonin 3 Mg Tablet) 6 mg PO BEDTIME PRN PRN Reason: Insomnia Metoprolol Succinate (Metoprolol Succinate Er 25 Mg Tab.Er.24h) 25 mg PO DAILY [facility]; Protocol Last Admin: 02/12/25 08:52 Dose: 25 mg Documented By: ANAYA Sodium Chloride (0.9 % Sodium Chloride Flush 3 Ml Syringe) 3 ml IVFLUSH QSHIFT [facility] Last Admin: 02/12/25 08:53 Dose: 3 ml Documented By: ANAYA Labs 02/12/25 06:18 02/11/25 06:20 Labs: Laboratory Results - last 24 hr 02/12/25 06:18 MCV 88.0 MCH 30.8 MCHC 35.0 RDW 12.7 Plt Count 209 MPV 10.2 Absolute Nucleated RBC 0.000 Nucleated RBC % (auto) 0.0 Microbiology Microbiology Results: Microbiology 02/10/25 09:11 Blood Culture - Preliminary Blood - Venous No growth after 48 hours. 02/10/25 09:11 Blood Culture - Preliminary Blood - Venous No growth after 48 hours. 02/09/25 15:45 Urine Culture - Final Urine clean catch - Clean Catch Midstream Proteus mirabilis Assessment and Plan (1) Multifactorial gait disorder: Status: Acute (2) PAF (paroxysmal atrial fibrillation): Status: Acute (3) Pulmonary emboli: Status: Acute Plan This is an 84 yo M with recent neurosurgery who presents with weakness. Initial work up did not reveal any significant findings and he was awaiting PT eval for rehab placement. On the day of admission he went into new on set A. fib with RVR and subsequent work up reveals a LLL PE. New onset A. Fib with RVR Converted back to normal sinus rhythm Continue p.o. metoprolol Currently anticoagulated with Lovenox, will transition to p.o. Eliquis Provoked acute PE recent neurosurgy (01/11) lovenox 1mg/kg BID initially, transition to po Eliquis CTA showing cardiomegaly + RV dilatation - echo with normal RV function seen by vascular - no acute intervention recommended at this time No hypoxia Ataxia/upper extremity weakness ? chronic, previously diagnosed at [facility] [place] [place] with canal stenosis and cord compression with myelopathy s/p c3/4,c4/5 anterior cervical diskectomy and fusion with auto and allograft and plating 01/11 Per notes from [facility] [place] [place], surgery would not improve symptoms but rather was to prevent progression of current symptoms; completed physical therapy at acute rehab of note did have op f/u with neurosurgery 02/07 and was cleared from their perspective and doing well at that time; unclear how much sx have changed since then seen by neurology - rec MRI c-spine seen by PT/OT - recommended acute rehab UTI in setting of chronic samaniego No sepsis urine culture growing Proteus sensitive to ceftriaxone Blood cultures negative CAD s/p PCI x 2 continue asa/statin/bb/Imdur HTN BP stable BPH ? no meds on med list Chronic samaniego continue routine samaniego care CXR with LL infiltrates, initially concern over pneumonia but CTA showing atelectasis therefore, no need for antibiotics; pt does not have any infectious etiology at this time and therefore, does not have sepsis; hold off on all antibiotics and monitor DNR/DNI (confirmed with pt) Reports HCPs as primary: , Judith; secondary: son, Gordo. Quality Stroke Does the patient have a stroke diagnosis?: No VTE Prior VTE?: No VTE Risk Level:: Medical - moderate - high VTE Device Contraindication: N/A - Device Ordered VTE Drug Contraindication: N/A - Med Ordered
[2025-02-12] MEDS: cefTRIAXone sodium 1 GM VIAL IVPUSH (15:27)
--- NOTE | 2025-02-12 17:00 | P.DS_ITS ---
DS: Providers Provider Date of Service: 02/12/25 Date of admission: 02/10/25 10:50 Date of discharge: 02/12/25 Primary care physician: Aly Crespo MD Consults: 02/10/25 10:22 Consult to Cardiology Routine Consulting Provider: [facility] Reason for consultation: new onset a. fib 02/11/25 08:18 Consult to Vascular Surgery Routine Consulting Provider: [facility] Reason for consultation: acute PE; elevated right atrial pressures 02/11/25 10:32 Consult to Neurology Routine Consulting Provider: [facility] Reason for consultation: ataxia, weakness, recent neck surgery Has provider been notified: No 02/11/25 17:23 Consult to Wound Care Routine Reason for consultation: stage 1 buttock Attending physician on discharge: Martita Villa Discharging clinician: Ronda Muñoz DS: Diagnosis Discharge Diagnosis (1) Multifactorial gait disorder: Status: Acute (2) PAF (paroxysmal atrial fibrillation): Status: Acute (3) Pulmonary emboli: Status: Acute DS: Summary Hospital Course Hospital Course: From the H&P on the day of admission The patient is a 84-year-old male with a past medical history of CAD status PCI x2, hypertension, hyperlipidemia, recent C3-4, C4-5 ACDF for cervical stenosis and myelopathy on 01/11/2025 who presented to [facility] ED on 02/09/2025 with imbalance and generalized weakness. His workup initially revealed possible UTI. CT of the C-spine did not show any acute abnormalities. He was cleared from a neurosurgical perspective and was awaiting physical therapy evaluation and possible rehab placement. However, this morning the patient was noted to be tachycardic with EKG revealing AFib with RVR. Further workup was ensued including a chest x-ray and eventually a CTA which showed a left lower lobe pulmonary embolism. He was given a dose of Lovenox, IV metoprolol 2.5, p.o. metoprolol 25 XL and admission has been requested. Patient is seen and examined in the emergency room around 10:00. He denies any chest pain or shortness of breath. He reports generalized weakness. He reports left greater than right weakness which he states has been present prior to his surgery. He denies any symptoms but does endorse a history of chronic Samaniego due to BPH New onset A. Fib with RVR Converted back to normal sinus rhythm. Continue p.o. metoprolol. Initially anticoagulated with Lovenox, planned to transitioned to oral Eliquis however given possible need for neurosurgical intervention we will continue subQ therapeutic Lovenox for now Provoked acute PE recent neurosurgery (01/11) lovenox 1mg/kg BID initially, transitioned to po Eliquis. 10mg bid x 7 days, then 5mg bid CTA showing cardiomegaly + RV dilatation - echo with normal RV function. seen by vascular - no acute intervention recommended at this time. No hypoxia Ataxia/upper extremity weakness previously diagnosed [place] [facility] [place] stenosis and cord compression with myelopathy s/p c3/4,c4/5 anterior cervical diskectomy and fusion with auto and allograft and plating 01/11. Per notes from [facility] [place], surgery would not improve symptoms but rather was to prevent progression of current symptoms; completed physical therapy at acute rehab of note did have op f/u with neurosurgery 02/07 and was cleared from their perspective and doing well at that time,however pt has had acute worsening of bilateral upper extremity weakness and mobility as well as ataxia starting on around February 09. Patient is unable to lift his arms to feed himself. He was seen in consultation by Neurology who recommended repeat MRI of cervical spine. The results of the MRI were discussed with Neurosurgery at [facility] and they have agreed to accept him in transfer for evaluation. He will be started on IV Decadron 4 mg q.8 hours in the meantime. 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 urine culture growing Proteus sensitive to ceftriaxone. Blood cultures negative. Plan transfer to [facility] for further neurosurgical evaluation. Accepting medical provider on the medicine service Dr. Bernal Time Attestation Discharge Coordination Time (in mins): 40 Quality: Safe Use of Opioids Does Pt have an Active Cancer Diagnosis on the Problem List?: No Quality: Stroke Does the patient have a stroke diagnosis?: No Physical Exam Vital Signs: Vital Signs: Last Vital Signs Temp 98.7 F 02/12/25 15:42 Pulse 73 02/12/25 15:42 Resp 16 02/12/25 15:42 BP 129/80 02/12/25 15:42 Pulse Ox 95 02/12/25 15:42 O2 Del Method Room Air 02/12/25 15:42 BMI result Body Mass Index 25.5 Const: General: cooperative, comfortable, no acute distress, alert and awake Nutritional Appearance: average body habitus Orientation/consciousness: patient oriented x3 Resp: Effort & Inspection: normal respiratory effort, able to speak in complete sentences, no respiratory distress and no use of accessory muscles Cardio: Rate: regular rate Neuro: Other: reduced deltoid strength b/l; severely limited AROM b/l UE; sensation intact General: patient oriented x3 Extrem: Other: decreased active ROM b/l shoulders DS: Data Data Completed and Pending Labs on day of discharge: Laboratory Results - last 24 hr 02/12/25 06:18 WBC 7.2 RBC 4.91 Hgb 15.1 Hct 43.2 MCV 88.0 MCH 30.8 MCHC 35.0 RDW 12.7 Plt Count 209 MPV 10.2 Absolute Nucleated RBC 0.000 Nucleated RBC % (auto) 0.0 Preliminary micro results at discharge 02/10/25 09:11 Blood Culture - Preliminary Blood - Venous No growth after 48 hours. 02/10/25 09:11 Blood Culture - Preliminary Blood - Venous No growth after 48 hours. Imaging MRI - head: Radiologist's impression: ITS Impressions Cervical Spine CT 02/09/25 12:40 IMPRESSION: Anterior cervical fusion with intact metallic plate and screws as well as intervertebral body disc spacer placement from C3 to C5. Grade 1 anterolisthesis C4-5 on a degenerative basis. Partially calcified pannus formation with associated degenerative changes in the periodontal C1 region. Fleischner guidelines were followed. Electronically signed by: Kartik Saleh MD 02/09/2025 02:38 PM EDT RP Chest X-Ray 02/09/25 12:40 IMPRESSION: Probable bibasilar subsegmental atelectasis. Electronically signed by: Cj Martino MD 02/09/2025 12:57 PM EDT RP Chest X-Ray 02/10/25 07:08 IMPRESSION: Acute on chronic airspace disease involving mostly the left lower lung lobe/lingula. Elevated left hemidiaphragm, chronic suggesting left phrenic paralysis. Electronically signed by: Kartik Saleh MD 02/10/2025 08:03 AM EDT RP Chest CTA 02/10/25 07:57 IMPRESSION: Pulmonary emboli in the left lower lobe. Cardiomegaly with right ventricular dilatation may represent right heart strain. Clinical correlation is recommended. Findings were discussed with Dr. Peralta on 02/10/2025 at 9:13 AM. echo Conclusions: - Normal left ventricular cavity size. There is normal left ventricular wall thickness. The left ventricular systolic function is hyperdynamic. The visually estimated ejection fraction is >70%. - Normal right ventricular cavity size and systolic function. - Significantly elevated right atrial pressure. Mild pulmonary hypertension is present. Organism 1 Proteus mirabilis Quant > 100,000 cfu/mL P mirabili M.I.C. RX --------- --- Ampicillin <=2 S Cefazolin (Urine) 4 S Cefepime <=0.12 S Ceftriaxone <=0.25 S Ciprofloxacin <=0.06 S Gentamicin <=1 S Nitrofurantoin 128 R Trimethoprim/Sulfamethoxazole <=20 S Discharge Plan Discharge Anticipated Discharge Date/Time: 02/12/25 14:00 Patient Disposition: Xfer Acute Care Hospital Discharge Diagnosis: Atrial fibrillation with rapid ventricular response-new onset Left lower lobe acute pulmonary emboli UTI in the setting of chronic indwelling Samaniego b/l upper extremity weakness gait instability Referrals: Aly Crespo MD [Primary Care Provider] - 1 Week Discharge Medications: New ceftriaxone 1 gram Recon Soln 1 g IVPUSH Q24H Qty: 1 0RF enoxaparin 80 mg/0.8 mL Syringe 70 mg subcut Q12H Qty: 8 0RF dexamethasone sodium phosphate 4 mg/mL Solution 4 mg IVPUSH Q8H Qty: 25 0RF omeprazole 40 mg Capsule,Delayed Release(Dr/Ec) 40 mg PO BID@0630,1630 Qty: 1 0RF Continued ciclopirox 0.77 % cream 1 appl topical BID timolol maleate 0.5 % drops 1 drp ophthalmic (eye) DAILY metoprolol succinate 25 mg tablet extended release 24 hr 25 mg PO DAILY aspirin 81 mg tablet,delayed release (DR/EC) 81 mg PO DAILY isosorbide mononitrate 30 mg tablet extended release 24 hr 30 mg PO DAILY nitroglycerin 0.4 mg tablet, sublingual 0.4 mg sublingual Q5M PRN (Reason: Angina) Patient Comments: pt states does not use anymore Rx Instructions: do not exceed 3 doses per episode furosemide 20 mg tablet 20 mg PO DAILY Patient Comments: no longer taking No Action atorvastatin 80 mg tablet 80 mg PO BEDTIME Qty: 90 1RF Activity on Discharge: As tolerated Stand Alone Forms: Patient Portal Discharge page Print Language: Nigerien Care Plan Goals: see below Health Concerns: Acute pulmonary embolus New onset atrial fibrillation UTI- urine culture growing Proteus mirabilis Upper extremity weakness Plan of Treatment: being treated with IV decadron 4q8h omeprazole for GI prophylaxis IV ceftriaxone for UTI therapeutic lovenox for acute PE- transition to oral Eliquis if no plan for acute neurosurgical intervention Assessment: see discharge summary
[2025-02-12] MEDS: Omeprazole 40 MG CAPSULE.DR PO (18:28)
[2025-02-12] MEDS: dexAMETHasone sod phosphate 4 MG/ML VIAL IVPUSH (18:28)
[2025-02-12] MEDS: Enoxaparin Sodium 80 MG/0.8 ML SYRINGE 70 MG SUBCUT (19:19)
[2025-02-13] MEDS: dexAMETHasone sod phosphate 4 MG/ML VIAL IVPUSH ×3 (01:02→17:24)
[2025-02-13 03:57] VITALS: BP 165/90; PULSE 71; RESP 19; TEMP 36.1; O2SAT 98
[2025-02-13] MEDS: Omeprazole 40 MG CAPSULE.DR PO ×2 (05:01→17:24)
[2025-02-13 08:00] VITALS: BP 155/75; PULSE 72; RESP 18; TEMP 36.1; O2SAT 96
[2025-02-13] MEDS: Atorvastatin Calcium 80 MG TABLET PO (09:43)
[2025-02-13] MEDS: Isosorbide Mononitrate 30 MG TAB.ER.24H PO (09:43)
[2025-02-13] MEDS: Aspirin Enteric Coated 81 MG TABLET.DR PO (09:43)
[2025-02-13] MEDS: Enoxaparin Sodium 80 MG/0.8 ML SYRINGE 70 MG SUBCUT ×2 (09:43→19:55)
[2025-02-13] MEDS: Metoprolol Succinate ER 25 MG TAB.ER.24H PO (09:43)
--- NOTE | 2025-02-13 10:22 | HO.PM.IMPN ---
Subjective Subjective Date of Service: 02/13/25 Interval History: Seen and examined this morning Follow-up for AFib, PE, weakness, ataxia No overnight events, remains in sinus rhythm No change in patient condition, awaiting bed at [facility] Review of Systems Review of Systems: Yes all other systems are reviewed and are negative Constitutional Constitutional: Denies chills and Denies fever(s) Cardiovascular Cardiovascular: Denies chest pain and Denies palpitations Endocrine Endocrine: Denies palpitations Physical Exam Vital Signs: Vital Signs: Last Vital Signs Temp 97.0 F 02/13/25 08:00 Pulse 72 02/13/25 08:00 Resp 18 02/13/25 08:00 BP 155/75 H 02/13/25 08:00 Pulse Ox 96 02/13/25 08:00 O2 Del Method Room Air 02/13/25 08:00 BMI result Body Mass Index 25.5 Const: General: cooperative, comfortable, no acute distress, alert and awake Nutritional Appearance: average body habitus Orientation/consciousness: patient oriented x3 Resp: Effort & Inspection: normal respiratory effort, able to speak in complete sentences, no respiratory distress and no use of accessory muscles Cardio: Rate: regular rate Neuro: Other: reduced deltoid strength b/l; severely limited AROM b/l UE; sensation intact General: patient oriented x3 Extrem: Other: decreased active ROM b/l shoulders Objective Data Active Medications Acetaminophen (Acetaminophen 325 Mg Tablet) 650 mg PO Q6H PRN PRN Reason: Pain, Mild 1-3,fever,headache Aspirin (Aspirin Enteric Coated 81 Mg Tablet.) 81 mg PO DAILY [facility] Last Admin: 02/13/25 09:43 Dose: 81 mg Documented By: WILLARD Atorvastatin Calcium (Atorvastatin Calcium 80 Mg Tablet) 80 mg PO DAILY [facility] Last Admin: 02/13/25 09:43 Dose: 80 mg Documented By: WILLARD Calcium Carbonate (Calcium Carbonate 750 Mg Tab.Chew) 750 mg PO Q4H PRN PRN Reason: Heartburn Ceftriaxone Sodium (Ceftriaxone Sodium 1 Gm Vial) 1 gm IVPUSH Q24H [facility] Last Admin: 02/12/25 15:27 Dose: 1 gm Documented By: ANAYA Dexamethasone Sodium Phosphate (Dexamethasone Sod Phosphate 4 Mg/Ml Vial) 4 mg IVPUSH Q8H [facility] Last Admin: 02/13/25 09:44 Dose: 4 mg Documented By: WILLARD Enoxaparin Sodium (Enoxaparin Sodium 80 Mg/0.8 Ml Syringe) 70 mg SUBCUT Q12H [facility] Last Admin: 02/13/25 09:43 Dose: 70 mg Documented By: WILLARD Isosorbide Mononitrate (Isosorbide Mononitrate 30 Mg Tab.Er.24h) 30 mg PO DAILY [facility]; Protocol Last Admin: 02/13/25 09:43 Dose: 30 mg Documented By: WILLARD Magnesium Hydroxide (Milk Of Magnesia 30 Ml Oral.Susp) 30 ml PO DAILY PRN PRN Reason: Constipation Melatonin (Melatonin 3 Mg Tablet) 6 mg PO BEDTIME PRN PRN Reason: Insomnia Metoprolol Succinate (Metoprolol Succinate Er 25 Mg Tab.Er.24h) 25 mg PO DAILY [facility]; Protocol Last Admin: 02/13/25 09:43 Dose: 25 mg Documented By: WILLARD Omeprazole (Omeprazole 40 Mg Capsule.Dr) 40 mg PO BID@0630,1630 [facility] Last Admin: 02/13/25 05:01 Dose: 40 mg Documented By: DANILO Sodium Chloride (0.9 % Sodium Chloride Flush 3 Ml Syringe) 3 ml IVFLUSH QSHIFT [facility] Last Admin: 02/13/25 08:57 Dose: Not Given Documented By: WILLARD Non-Admin Reason: Previously Administered Labs 02/12/25 06:18 02/11/25 06:20 Microbiology Microbiology Results: Microbiology 02/10/25 09:11 Blood Culture - Preliminary Blood - Venous No growth after 48 hours. 02/10/25 09:11 Blood Culture - Preliminary Blood - Venous No growth after 48 hours. 02/09/25 15:45 Urine Culture - Final Urine clean catch - Clean Catch Midstream Proteus mirabilis Assessment and Plan (1) Multifactorial gait disorder: Status: Acute (2) PAF (paroxysmal atrial fibrillation): Status: Acute (3) Pulmonary emboli: Status: Acute Plan This is an 84 yo M with recent neurosurgery who presents with weakness. Initial work up did not reveal any significant findings and he was awaiting PT eval for rehab placement. On the day of admission he went into new on set A. fib with RVR and subsequent work up reveals a LLL PE. New onset A. Fib with RVR Converted back to normal sinus rhythm Continue p.o. metoprolol anticoagulated with Lovenox, will continue Lovenox for now as plan to transfer [place] [facility] due to need for possible neurosurgical intervention Provoked acute PE recent neurosurgy (01/11) lovenox 1mg/kg BID CTA showing cardiomegaly + RV dilatation - echo with normal RV function seen by vascular - no acute intervention recommended at this time No hypoxia Ataxia/upper extremity weakness ? 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 s/p c3/4,c4/5 anterior cervical diskectomy and fusion with auto and allograft and plating 01/11 Per notes from [facility], surgery would not improve symptoms but rather was to prevent progression of current symptoms; completed physical therapy at acute rehab of note did have op f/u with neurosurgery 02/07 and was cleared from their perspective and doing well at that time; unclear how much sx have changed since then seen by neurology - rec MRI c-spine -discussed results of MRI with Neurosurgery at [facility], they have accepted him in transfer, recommended IV decadron while awaiting a bed seen by PT/OT - recommended acute rehab 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 no meds on med list Chronic samaniego continue routine samaniego care CXR with LL infiltrates, initially concern over pneumonia but CTA showing atelectasis therefore, no need for antibiotics; pt does not have any infectious etiology at this time and therefore, does not have sepsis; hold off on all antibiotics and monitor DNR/DNI (confirmed with pt) Reports HCPs as primary: , Judith; secondary: son, Gordo. Quality Stroke Does the patient have a stroke diagnosis?: No VTE Prior VTE?: No VTE Risk Level:: Medical - moderate - high VTE Device Contraindication: N/A - Device Ordered VTE Drug Contraindication: N/A - Med Ordered
[2025-02-13 11:23] VITALS: BP 156/80; PULSE 84; RESP 18; TEMP 37.1; O2SAT 94
[2025-02-13] MEDS: cefTRIAXone sodium 1 GM VIAL IVPUSH (14:55)
[2025-02-13 16:00] VITALS: BP 122/66; PULSE 80; RESP 18; TEMP 37.1; O2SAT 96
[2025-02-13 19:41] VITALS: BP 118/67; PULSE 70; RESP 18; TEMP 36.1; O2SAT 98
[2025-02-13] MEDS: 0.9 % Sodium Chloride Flush 3 ML SYRINGE IVFLUSH (19:53)
[2025-02-14] VITALS (7 sets, daily range): BP systolic 100–154; BP diastolic 56–82; PULSE 62–78; RESP 14–20; TEMP 36.3–37.6; O2SAT 95–99
[2025-02-14] MEDS: dexAMETHasone sod phosphate 4 MG/ML VIAL IVPUSH ×3 (02:36→16:41)
[2025-02-14] MEDS: Omeprazole 40 MG CAPSULE.DR PO ×2 (05:49→16:41)
[2025-02-14] MEDS: Enoxaparin Sodium 80 MG/0.8 ML SYRINGE 70 MG SUBCUT (07:44)
[2025-02-14] MEDS: Isosorbide Mononitrate 30 MG TAB.ER.24H PO (07:45)
[2025-02-14] MEDS: Metoprolol Succinate ER 25 MG TAB.ER.24H PO (07:45)
[2025-02-14] MEDS: Aspirin Enteric Coated 81 MG TABLET.DR PO (07:46)
[2025-02-14] MEDS: Atorvastatin Calcium 80 MG TABLET PO (07:46)
[2025-02-14] MEDS: 0.9 % Sodium Chloride Flush 3 ML SYRINGE IVFLUSH (10:01)
--- NOTE | 2025-02-14 10:38 | MHC.CM.PN ---
EMR REVIEWED, PER HOSPITALIST PLAN FOR PT TO TRANSFER TO [facility] PENDING BED AVAILABILITY.
--- NOTE | 2025-02-14 11:56 | P.PNIM_ITS ---
Subjective Subjective Date of Service: 02/14/25 Interval History: Seen and examined this morning Follow-up for AFib, PE, weakness, ataxia No overnight events, remains in sinus rhythm No change in patient condition, awaiting bed at [facility] Review of Systems Review of Systems: Yes all other systems are reviewed and are negative Constitutional Constitutional: Denies chills and Denies fever(s) Cardiovascular Cardiovascular: Denies chest pain and Denies palpitations Endocrine Endocrine: Denies palpitations Physical Exam 2 Vital Signs: Vital Signs: Last Vital Signs Temp 99.7 F 02/14/25 07:27 Pulse 72 02/14/25 07:27 Resp 16 02/14/25 07:27 BP 136/76 02/14/25 07:45 Pulse Ox 97 02/14/25 07:27 O2 Del Method Room Air 02/14/25 07:27 BMI result Body Mass Index 25.5 Appearing in no acute distress lung sounds are clear to auscultation heart regular rate rhythm, clear S1, S2 positive bowel sounds, abdomen is soft, nontender neuro patient is alert x3, no focal deficits Objective Data Active Medications Acetaminophen (Acetaminophen 325 Mg Tablet) 650 mg PO Q6H PRN PRN Reason: Pain, Mild 1-3,fever,headache Aspirin (Aspirin Enteric Coated 81 Mg Tablet.) 81 mg PO DAILY [facility] Last Admin: 02/14/25 07:46 Dose: 81 mg Documented By: JADGISH Atorvastatin Calcium (Atorvastatin Calcium 80 Mg Tablet) 80 mg PO DAILY [facility] Last Admin: 02/14/25 07:46 Dose: 80 mg Documented By: JAGDISH Calcium Carbonate (Calcium Carbonate 750 Mg Tab.Chew) 750 mg PO Q4H PRN PRN Reason: Heartburn Ceftriaxone Sodium (Ceftriaxone Sodium 1 Gm Vial) 1 gm IVPUSH Q24H [facility] Last Admin: 02/13/25 14:55 Dose: 1 gm Documented By: WILLARD Dexamethasone Sodium Phosphate (Dexamethasone Sod Phosphate 4 Mg/Ml Vial) 4 mg IVPUSH Q8H [facility] Last Admin: 02/14/25 10:30 Dose: 4 mg Documented By: JAGDISH Enoxaparin Sodium (Enoxaparin Sodium 80 Mg/0.8 Ml Syringe) 70 mg SUBCUT Q12H [facility] Last Admin: 02/14/25 07:44 Dose: 70 mg Documented By: JAGDISH Isosorbide Mononitrate (Isosorbide Mononitrate 30 Mg Tab.Er.24h) 30 mg PO DAILY [facility]; Protocol Last Admin: 02/14/25 07:45 Dose: 30 mg Documented By: JAGDISH Magnesium Hydroxide (Milk Of Magnesia 30 Ml Oral.Susp) 30 ml PO DAILY PRN PRN Reason: Constipation Melatonin (Melatonin 3 Mg Tablet) 6 mg PO BEDTIME PRN PRN Reason: Insomnia Metoprolol Succinate (Metoprolol Succinate Er 25 Mg Tab.Er.24h) 25 mg PO DAILY [facility]; Protocol Last Admin: 02/14/25 07:45 Dose: 25 mg Documented By: JAGDISH Omeprazole (Omeprazole 40 Mg Capsule.Dr) 40 mg PO BID@0630,1630 [facility] Last Admin: 02/14/25 05:49 Dose: 40 mg Documented By: ANNIE Sodium Chloride (0.9 % Sodium Chloride Flush 3 Ml Syringe) 3 ml IVFLUSH QSHIFT [facility] Last Admin: 02/14/25 10:01 Dose: 3 ml Documented By: JAGDISH Labs 02/12/25 06:18 02/11/25 06:20 Assessment and Plan (1) Multifactorial gait disorder: Status: Acute (2) PAF (paroxysmal atrial fibrillation): Status: Acute (3) Pulmonary emboli: Status: Acute Plan 84 yo M with recent neurosurgery who presents with weakness. Initial work up did not reveal any significant findings and he was awaiting PT eval for rehab placement. On the day of admission he went into new on set A. fib with RVR and subsequent work up reveals a LLL PE. New onset A. Fib with RVR Converted back to normal sinus rhythm Continue p.o. metoprolol anticoagulated with Lovenox, will continue Lovenox for now as plan to transfer back to [facility] due to need for possible neurosurgical intervention Provoked acute PE recent neurosurgy (01/11) lovenox 1mg/kg BID CTA showing cardiomegaly + RV dilatation - echo with normal RV function seen by vascular - no acute intervention recommended at this time No hypoxia Ataxia/upper extremity weakness ? 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 s/p c3/4,c4/5 anterior cervical diskectomy and fusion with auto and allograft and plating 2/18 Per notes from [facility], surgery would not improve symptoms but rather was to prevent progression of current symptoms; completed physical therapy at acute rehab of note did have op f/u with neurosurgery 02/07 and was cleared from their perspective and doing well at that time; unclear how much sx have changed since then seen by neurology - rec MRI c-spine -discussed results of MRI with Neurosurgery at [facility], they have accepted him in transfer, recommended IV decadron while awaiting a bed seen by PT/OT - recommended acute rehab 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 no meds on med list Chronic samaniego continue routine samaniego care CXR with LL infiltrates, initially concern over pneumonia but CTA showing atelectasis therefore, no need for antibiotics; pt does not have any infectious etiology at this time and therefore, does not have sepsis; hold off on all antibiotics and monitor DNR/DNI (confirmed with pt) Reports HCPs as primary: , Judith; secondary: son, Gordo. Quality Stroke Does the patient have a stroke diagnosis?: No VTE Prior VTE?: No VTE Risk Level:: Medical - moderate - high VTE Device Contraindication: N/A - Device Ordered VTE Drug Contraindication: N/A - Med Ordered
--- NOTE | 2025-02-14 12:13 | P.CDIM_ITS ---
PROVIDER RESPONSE TEXT: To clarify, the appropriate diagnosis supported by the clinical indicators: Yes the UTI is associated with / due to the Chronic Samaniego Catheter QUERY TEXT: PHYSICIAN'S DOCUMENTATION REQUEST Date of Query: 02/14/2025 12:02 PM EDT Patient Name: Gordo Bullock Admit Date: 02/10/2025 Dear Danitza Cruz ACID TESTER, A review of the medical record indicates additional documentation may be needed. Please review below and update the documentation accordingly. Clinical Indicators: Progress note 02/14/25 - UTI in the setting of chronic samaniego Urine culture growing Proteus sensitive to ceftriaxone. Blood cultures negative. Continue IV Ceftriaxone. Please clarify the relationship between these conditions: Yes the UTI is associated with / due to the Chronic Samaniego Catheter No the UTI is not associated with / due to the Chronic Samaniego Catheter Other (explain) Clinically unable to determine (explain) Thank you, Sarah Freed, CCS, CDIS Use of terms such as suspected, likely, concern for, or probable (associated with a specific diagnosi s that is being evaluated, monitored, or treated as if it exists) are acceptable and can be coded in the inpatient se tting, when documented at the time of discharge. Please use your independent medical judgment in providing your response. THIS QUERY IS PART OF THE PERMANENT MEDICAL RECORD
--- NOTE | 2025-02-14 13:17 | HO.VASCPN ---
Subjective Subjective Date of Service: 02/14/25 Interval history: Gordo is doing well this morning. He continues with upper extremity weakness. He has been eating, sleeping, and drinking ok. He denies shortness of breath, diff breathing, and CP. He has no new concerns this morning. Physical Exam Vital Signs: Vital Signs: Last Vital Signs Temp 97.3 F 02/14/25 11:56 Pulse 62 02/14/25 11:56 Resp 20 02/14/25 11:56 BP 100/56 L 02/14/25 11:56 Pulse Ox 99 02/14/25 11:56 O2 Del Method Room Air 02/14/25 11:56 BMI result Body Mass Index 25.5 Const: General: comfortable and no acute distress Orientation/consciousness: patient oriented x3 HEENT: Ears: hearing grossly normal bilaterally Resp: Effort & Inspection: normal respiratory effort and able to speak in complete sentences Auscultation: clear to auscultation bilaterally Cardio: Rate: regular rate Rhythm: regular rhythm Heart sounds: S1 normal heart sound present and S2 normal heart sound present Bruits: no abdominal aortic bruits, no carotid bruits, no femoral bruits and no renal bruits GI: Palpation (GI): No Abdominal aortic bruit present Neuro: General: patient oriented x3 Cranial nerves: Yes CN's II-XII intact bilaterally Progress Note: A&P Assessment and plan (1) Pulmonary emboli: Status: Acute Assessment and Plan: Gordo remains stable from a vascular standpoint. He was found to have cervical spine compression at C3 and is awaiting transfer to [facility] for Neurosurgery; he does continue to endorse upper extremity weakness. He denies shortness of breath, diff breathing, and CP. We recommend oral anticoagulation outpatient upon discharge. We will continue to monitor. If there are any questions or concerns, please do not hesitate to reach out to us. Time Spent With Patient Time: Total time managing care of this patient today ____ minutes. Procedures Date of Service Date of Service: 02/14/25 Quality Stroke Does the patient have a stroke diagnosis?: No VTE Prior VTE?: No VTE Risk Level:: Medical - moderate - high VTE Device Contraindication: N/A - Device Ordered VTE Drug Contraindication: N/A - Med Ordered
[2025-02-14] MEDS: cefTRIAXone sodium 1 GM VIAL IVPUSH (13:47)
--- NOTE | 2025-02-14 17:10 | PM.DS ---
DS: Providers Provider Date of Service: 02/14/25 Date of admission: 02/10/25 10:50 Date of discharge: 02/14/25 Primary care physician: Aly Crespo MD Consults: 02/10/25 10:22 Consult to Cardiology Routine Consulting Provider: [facility] Reason for consultation: new onset a. fib 02/11/25 08:18 Consult to Vascular Surgery Routine Consulting Provider: [facility] Reason for consultation: acute PE; elevated right atrial pressures 02/11/25 10:32 Consult to Neurology Routine Consulting Provider: [facility] Reason for consultation: ataxia, weakness, recent neck surgery Has provider been notified: No 02/11/25 17:23 Consult to Wound Care Routine Reason for consultation: stage 1 buttock DS: Diagnosis Discharge Diagnosis (1) Multifactorial gait disorder: Status: Acute (2) PAF (paroxysmal atrial fibrillation): Status: Acute (3) Pulmonary emboli: Status: Acute DS: Summary Hospital Course Hospital Course: From the H&P on the day of admission The patient is a 84-year-old male with a past medical history of CAD status PCI x2, hypertension, hyperlipidemia, recent C3-4, C4-5 ACDF for cervical stenosis and myelopathy on 01/11/2025 who presented to [facility] on 02/09/2025 with imbalance and generalized weakness. His workup initially revealed possible UTI. CT of the C-spine did not show any acute abnormalities. He was cleared from a neurosurgical perspective and was awaiting physical therapy evaluation and possible rehab placement. However, this morning the patient was noted to be tachycardic with EKG revealing AFib with RVR. Further workup was ensued including a chest x-ray and eventually a CTA which showed a left lower lobe pulmonary embolism. He was given a dose of Lovenox, IV metoprolol 2.5, p.o. metoprolol 25 XL and admission has been requested. Patient is seen and examined in the emergency room around 10:00. He denies any chest pain or shortness of breath. He reports generalized weakness. He reports left greater than right weakness which he states has been present prior to his surgery. He denies any symptoms but does endorse a history of chronic Samaniego due to BPH New onset A. Fib with RVR Converted back to normal sinus rhythm. Continue p.o. metoprolol. Initially anticoagulated with Lovenox, planned to transitioned to oral Eliquis however given possible need for neurosurgical intervention we will continue subQ therapeutic Lovenox for now Provoked acute PE recent neurosurgery (01/11) lovenox 1mg/kg BID initially, transitioned to po Eliquis. 10mg bid x 7 days, then 5mg bid CTA showing cardiomegaly + RV dilatation - echo with normal RV function. seen by vascular - no acute intervention recommended at this time. 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 Per notes from [facility], surgery would not improve symptoms but rather was to prevent progression of current symptoms; completed physical therapy at acute rehab of note did have op f/u with neurosurgery 02/07 and was cleared from their perspective and doing well at that time,however pt has had acute worsening of bilateral upper extremity weakness and mobility as well as ataxia starting on around February 09. Patient is unable to lift his arms to feed himself. He was seen in consultation by Neurology who recommended repeat MRI of cervical spine. The results of the MRI were discussed with Neurosurgery at [facility] and they have agreed to accept him in transfer for evaluation. He will be started on IV Decadron 4 mg q.8 hours in the meantime. 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 urine culture growing Proteus sensitive to ceftriaxone. Blood cultures negative. Plan transfer to [facility] for further neurosurgical evaluation. Accepting medical provider on the medicine service Dr. Bernal Time Attestation Discharge Coordination Time (in mins): 40 Quality: Safe Use of Opioids Does Pt have an Active Cancer Diagnosis on the Problem List?: No Quality: Stroke Does the patient have a stroke diagnosis?: No Physical Exam Vital Signs: Vital Signs: Last Vital Signs Temp 97.8 F 02/14/25 16:05 Pulse 69 02/14/25 16:05 Resp 14 02/14/25 16:05 BP 124/64 02/14/25 16:05 Pulse Ox 98 02/14/25 16:05 O2 Del Method Room Air 02/14/25 16:05 BMI result Body Mass Index 25.5 Appearing in no acute distress head is normocephalic atraumatic eyes pupils are PERRLA sclera is anicteric mouth throat mucous membranes are intact and moist neck is supple no lymphadenopathy, no JVD noted lung sounds are clear to auscultation heart regular rate rhythm, clear S1, S2 positive bowel sounds, abdomen is soft, nontender neuro patient is alert x3, no focal deficits DS: Data Data Completed and Pending Labs on day of discharge: Preliminary micro results at discharge 02/10/25 09:11 Blood Culture - Preliminary Blood - Venous No growth after 48 hours. 02/10/25 09:11 Blood Culture - Preliminary Blood - Venous No growth after 48 hours. Discharge Plan Discharge Anticipated Discharge Date/Time: 02/12/25 14:00 Patient Disposition: Xfer Acute Care Hospital Discharge Diagnosis: Atrial fibrillation with rapid ventricular response-new onset Left lower lobe acute pulmonary emboli UTI in the setting of chronic indwelling Samaniego b/l upper extremity weakness gait instability Referrals: Aly Crespo MD [Primary Care Provider] - 1 Week Discharge Medications: New ceftriaxone 1 gram Recon Soln 1 g IVPUSH Q24H Qty: 1 0RF enoxaparin 80 mg/0.8 mL Syringe 70 mg subcut Q12H Qty: 8 0RF omeprazole 40 mg Capsule,Delayed Release(Dr/Ec) 40 mg PO BID@0630,1630 Qty: 1 0RF dexamethasone sodium phosphate 4 mg/mL Solution 4 mg IVPUSH Q8H Qty: 25 0RF Continued atorvastatin 80 mg tablet 80 mg PO BEDTIME Qty: 90 1RF ciclopirox 0.77 % cream 1 appl topical BID timolol maleate 0.5 % drops 1 drp ophthalmic (eye) DAILY metoprolol succinate 25 mg tablet extended release 24 hr 25 mg PO DAILY aspirin 81 mg tablet,delayed release (DR/EC) 81 mg PO DAILY isosorbide mononitrate 30 mg tablet extended release 24 hr 30 mg PO DAILY nitroglycerin 0.4 mg tablet, sublingual 0.4 mg sublingual Q5M PRN (Reason: Angina) Patient Comments: pt states does not use anymore Rx Instructions: do not exceed 3 doses per episode furosemide 20 mg tablet 20 mg PO DAILY Patient Comments: no longer taking Discharge Orders: Discharge Order (Routine); Ordered 02/14/25 Ordered By: Danitza Cruz Diet: Advance to usual diet Activity on Discharge: As tolerated Stand Alone Forms: Patient Portal Discharge page Print Language: Sami Care Plan Goals: see below Health Concerns: Acute pulmonary embolus New onset atrial fibrillation UTI- urine culture growing Proteus mirabilis Upper extremity weakness Plan of Treatment: being treated with IV decadron 4q8h omeprazole for GI prophylaxis IV ceftriaxone for UTI therapeutic lovenox for acute PE- transition to oral Eliquis if no plan for acute neurosurgical intervention Assessment: see discharge summary
--- NOTE | 2025-02-14 22:58 | PC.NURSE ---
Pt pleasant AOx4, tele was removed for transfer to [facility]. Pt on RA. ambulance picked up pt at about 2100. [address] on R arm for transfer, EMS personnel aware. F/C remained in place d/t being chronic.
== END 2025-02-14 21:00 | disposition short-term general hospital (02) | DRG 698 ==
LOC: HO.ED 02-10 10:15 → HO.EDOVER 02-10 10:50 → HO.IMC 02-10 20:03
PROVIDERS: Physician Assistant; Physician Assistant Medical; Admitting Provider Family Medicine; Emergency Provider Emergency Medicine; PCP Internal Medicine; Visit Provider Nurse Practitioner Acute Care
DX: T83.511A Infection and inflammatory reaction due to indwelling urethral catheter, initial encounter (principal); I26.99 Other pulmonary embolism without acute cor pulmonale; J98.11 Atelectasis; N39.0 Urinary tract infection, site not specified; I48.0 Paroxysmal atrial fibrillation; Z66 Do not resuscitate; R27.0 Ataxia, unspecified; I25.10 Atherosclerotic heart disease of native coronary artery without angina pectoris; B96.4 Proteus (mirabilis) (morganii) as the cause of diseases classified elsewhere; Z98.1 Arthrodesis status; Z20.822 Contact with and (suspected) exposure to COVID-19; Z95.5 Presence of coronary angioplasty implant and graft; Z79.82 Long term (current) use of aspirin; Z79.899 Other long term (current) drug therapy
CPT/HCPCS: 0241U; 36415; 71045; 71275; 72125; 72141; 80048; 80076; 81001; 83605; 83735; 83880; 84443; 84484; 85025; 85027; 85379; 85610; 85730; 87040; 87086; 87088; 87186; 93005; 93306; 97162; 97166; 97530; 99285; J0456; J0696; J1100; J1160; J1650; Q9957; Q9967

== ENCOUNTER → 2025-02-09 12:40 | Outpatient (BNV) | payer MEDICARE, SELFPAY | PROVIDERS: Admitting Provider Family Medicine; Emergency Provider Emergency Medicine; PCP Internal Medicine; Visit Provider Internal Medicine Cardiovascular Disease | DX: I48.91 Unspecified atrial fibrillation (principal) | CPT/HCPCS: 93010 ==

== ENCOUNTER → 2025-02-09 12:40 | Outpatient (BNV) | payer MEDICARE, SELFPAY | PROVIDERS: Emergency Provider Emergency Medicine; Visit Provider Radiology Diagnostic Radiology | DX: Z98.1 Arthrodesis status (principal); R53.1 Weakness | CPT/HCPCS: 71045; 72125 ==

== ENCOUNTER → 2025-02-09 13:35 | Outpatient (BNV) | payer MEDICARE, SELFPAY | PROVIDERS: Emergency Provider Emergency Medicine; PCP Internal Medicine; Visit Provider Family Medicine | DX: R26.89 Other abnormalities of gait and mobility (principal); I48.0 Paroxysmal atrial fibrillation; I26.99 Other pulmonary embolism without acute cor pulmonale | CPT/HCPCS: 99232; 99233; 99239 ==

== ENCOUNTER → 2025-02-10 07:07 | Outpatient (BNV) | payer MEDICARE, SELFPAY | PROVIDERS: Admitting Provider Family Medicine; Emergency Provider Emergency Medicine; PCP Internal Medicine; Visit Provider Internal Medicine Cardiovascular Disease | DX: I27.20 Pulmonary hypertension, unspecified (principal); I48.91 Unspecified atrial fibrillation; R94.31 Abnormal electrocardiogram [ECG] [EKG] | CPT/HCPCS: 93010; 93306 ==

== ENCOUNTER → 2025-02-10 07:08 | Outpatient (BNV) | payer MEDICARE, SELFPAY | PROVIDERS: Emergency Provider Emergency Medicine; PCP Internal Medicine; Visit Provider Radiology Diagnostic Radiology | DX: I26.99 Other pulmonary embolism without acute cor pulmonale (principal); I51.7 Cardiomegaly; J84.89 Other specified interstitial pulmonary diseases; J98.6 Disorders of diaphragm | CPT/HCPCS: 71045; 71275 ==

== ENCOUNTER 2025-02-10 10:50 | Outpatient (BNV) | payer MEDICARE, SELFPAY | END 2025-02-12 11:49 | PROVIDERS: Admitting Provider Family Medicine; Emergency Provider Emergency Medicine; PCP Internal Medicine; Visit Provider Radiology Vascular & Interventional Radiology | DX: M48.02 Spinal stenosis, cervical region (principal) | CPT/HCPCS: 72141 ==

== ENCOUNTER → 2025-02-10 10:50 | Outpatient (BNV) | payer MEDICARE, SELFPAY | PROVIDERS: Admitting Provider Family Medicine; Emergency Provider Emergency Medicine; PCP Internal Medicine; Visit Provider Psychiatry & Neurology Neurology | DX: R26.89 Other abnormalities of gait and mobility (principal) | CPT/HCPCS: 99222 ==

== ENCOUNTER → 2025-02-10 10:50 | Outpatient (BNV) | payer MEDICARE, SELFPAY | PROVIDERS: Admitting Provider Family Medicine; Emergency Provider Emergency Medicine; PCP Internal Medicine; Visit Provider Internal Medicine Cardiovascular Disease | DX: I26.99 Other pulmonary embolism without acute cor pulmonale (principal); I48.0 Paroxysmal atrial fibrillation | CPT/HCPCS: 99223 ==

== ENCOUNTER → 2025-02-10 10:50 | Outpatient (BNV) | payer MEDICARE, SELFPAY | PROVIDERS: Admitting Provider Family Medicine; Emergency Provider Emergency Medicine; PCP Internal Medicine; Visit Provider Physician Assistant Surgical | DX: I26.99 Other pulmonary embolism without acute cor pulmonale (principal) | CPT/HCPCS: 99222 ==

== ENCOUNTER 2025-03-14 13:10 | Outpatient (AMB) | payer MEDICARE, SELFPAY ==
--- OUTSIDE RECORDS SUMMARY | 2025-03-14 13:11 | XMS_ITS | Encounter Summary ---
Author Organization [facility] Address [address] [place] [address] Care Team Providers Care Bakery Machine Mechanic Name Role Phone Cj Barber Primary Care Provider [phone] Encounter Details Date Type Department Care Team (Late st Contact Info) Description 02/15/[address] [facility] Cardiology [address] [place] [phone] Mg Candelario MD [address] [place] [address] [address] [id number] Social History Tobacco Use Types Packs/Day Years [...] as of this encounter Progress Notes * Aly Burns - 02/15/2025 10:36 AM EDT FYI-Patients Judith calling to inform her husbands care team that he is in the hospital because he can not walk, has a UTI, Erratic heartbeat and a clog in his lungs. She will call back with more updates if anything comes up. documented in this encounter Plan of Treatment Not on file documented as of this encounter Visit Diagnoses Not on filedocumented in this encounter Care Teams Bakery Machine Mechanic Relationship Specialty Start Date End Date Cj Barber DO [address] [place] [phone] PCP - General 04/21/13 documented as of this encounter
--- OUTSIDE RECORDS SUMMARY | 2025-03-14 13:11 | XMS_ITS | Encounter Summary ---
Author Organization [facility] Address [address] [place] [address] Care Team Providers Care Professional Volleyball Player Name Role Phone Cj Barber DO Primary Care Provider [phone] Encounter Details Date Type Department Care Team (Late st Contact Info) Description 01/17/2025 Lab Requisition [facility] - Main Lab [address] [facility] [place] [address] Fidencio Burroughs MD [address] [place] [phone] Encounter for other general examination Social History [...] as of this encounter Plan of Treatment Not on file documented as of this encounter Procedures Procedure [...] mirabilis(A ) BAUDILIO 01/19/2025 11:30 AM EST [facility] Comment: Edited result: Previously [...] MICROBIOLOGY - GENERAL ORD ERABLES Final Result [facility] [address] [place] [address], [place] [phone] * (ABNORMAL) Urinalysis with reflex microscopic and culture (01/17/2025 4:00 AM EST) Specific [place] Urine 1.009 1.003 - 1.030 LAB URINALYSIS - AUTOMATED METHOD 01/17/2025 12:04 PM [facility] pH, Urine 7.5 5.0 - 8.0 pH LAB URINALYSIS - AUTOMATED METHOD 01/17/2025 12:04 PM [facility] Leukocytes, Urine Large(A) Negative LAB URINALYSIS - AUTOMATED METHOD 01/17/2025 12:04 PM [facility] Nitrite, Urine Negative Negative LAB URINALYSIS - AUTOMATED METHOD 01/17/2025 12:04 PM [facility] Protein, Urine 30(A) <=Trace mg/dL LAB URINALYSIS - AUTOMATED METHOD 01/17/2025 12:04 PM [facility] Glucose, Urine Negative Negative mg/dL LAB URINALYSIS - AUTOMATED METHOD 01/17/2025 12:04 PM [facility] Ketones, Urine Negative Negative mg/dL LAB URINALYSIS - AUTOMATED METHOD 01/17/2025 12:04 PM [facility] Urobilinogen, Urine 1.0 0.2 - 1.0 mg/dL LAB URINALYSIS - AUTOMATED METHOD 01/17/2025 12:04 PM [facility] Bilirubin, Urine Negative Negative LAB URINALYSIS - AUTOMATED METHOD 01/17/2025 12:04 PM [facility] Blood, Urine Large(A) Negative LAB URINALYSIS - AUTOMATED METHOD 01/17/2025 12:04 PM [facility] RBC, Urine 501.9(H) 0 - 4 /HPF LAB URINALYSIS - AUTOMATED METHOD 01/17/2025 12:04 PM [facility] WBC, Urine 505.7(H) 0 - 4 /HPF LAB URINALYSIS - AUTOMATED METHOD 01/17/2025 12:04 PM [facility] Squamous Epithelial, Urine 4 0 - 60 /LPF LAB URINALYSIS - AUTOMATED METHOD 01/17/2025 12:04 PM [facility] Bacteria, Urine Negative Negative /HPF LAB URINALYSIS - AUTOMATED METHOD 01/17/2025 12:04 PM [facility] Hyaline Casts, Urine 4.8(H) 0 - 3 /LPF LAB URINALYSIS - AUTOMATED METHOD 01/17/2025 12:04 PM [facility] Urine Indwelling urinary catheter / Unknown Non-blood Collection / Unknown 01/17/2025 4:00 AM EST 01/17/2025 10:12 AM EST us Fidencio Burroughs MD LAB URINE ORDERABLES Final Res ult Performing Organization Address City/[facility]/ZIP Co de Phone Number [facility] [address] [place] [address], [place] [phone] * [place] urine culture tube (01/17/2025 4:00 AM EST) Extra Tube Hold for add-ons. 01/17/2025 12:01 PM [facility] Comment:Auto resulted. Urine Indwelling urinary catheter / Unknown Non-blood Collection / Unknown 01/17/2025 4:00 AM EST 01/17/2025 10:12 AM EST us Fidencio Burroughs MD LAB URINE ORDERABLES Final Res ult Performing Organization Address City/[facility]/ZIP Co de Phone Number [facility] [address] [place] [address], [place] [phone] documented in this encounter Visit Diagnoses Diagnosis Encounter for other general examination documented in this encounter Care Teams Professional Volleyball Player Relationship Specialty Start Date End Date Cj Barber DO [address] [place] [phone] PCP - General 04/21/13 documented as of this encounter
--- OUTSIDE RECORDS SUMMARY | 2025-03-14 13:11 | XMS_ITS | Encounter Summary ---
Author Organization [facility] Address [address] [place] [address] Care Team Providers Care Manager Electrical Name Role Phone Cj Barber DO Primary Care Provider [phone] Encounter Details Date Type Department Care Team (Late st Contact Info) Description 01/19/2025 Lab Requisition [facility] - Main Lab 299 [facility] [place] [address] Fidencio Burroughs MD [address] [place] [phone] Encounter for other general examination Social History [...] AM EST) WBC 6.3 4.8 - 10.8 /[facility] LAB HEMETOLOGY METHOD 01/19/2025 12:47 PM [facility] LAB RBC 4.50 4.50 - 5.50 M/mcL LAB HEMETOLOGY METHOD 01/19/2025 12:47 PM [facility] LAB Hemoglobin 13.9 13.5 - 17.5 g/dL LAB HEMETOLOGY METHOD 01/19/2025 12:47 PM [facility] LAB Hematocrit 42.6 42.0 - 54.0 % LAB HEMETOLOGY METHOD 01/19/2025 12:47 PM [facility] LAB MCV 94.0 79.0 - 98.0 FL LAB HEMETOLOGY METHOD 01/19/2025 12:47 PM [facility] LAB MCH 30.7 27.0 - 32.0 pcg LAB HEMETOLOGY METHOD 01/19/2025 12:47 PM [facility] LAB MCHC 32.6 32.0 - 37.0 g/dL LAB HEMETOLOGY METHOD 01/19/2025 12:47 PM [facility] LAB RDW 13.0 11.0 - 15.0 % LAB HEMETOLOGY METHOD 01/19/2025 12:47 PM [facility] LAB Platelets 01/19/2025 12:47 PM [facility] LAB Comment:Not measured. Unable to quantitate due to platelet clumping MPV 11.3(H) 7.0 - 11.0 FL LAB HEMETOLOGY METHOD 01/19/2025 12:47 PM [facility] LAB NRBC 0.0 <1.0 % LAB HEMETOLOGY METHOD 01/19/2025 12:47 PM [facility] LAB NRBC Absolute 0.00 <0.10 K/mcL LAB HEMETOLOGY METHOD 01/19/2025 12:47 PM [facility] LAB Blood Venous blood specimen / Unknown Venipuncture / Unknown 01/19/2025 5:25 AM EST 01/19/2025 10:00 AM EST us Fidencio Burroughs MD LAB BLOOD ORDERABLES Final Res ult [facility] LAB [address] [place] [address], [place] [phone] * (ABNORMAL) Comprehensive metabolic panel (01/19/2025 5:25 AM EST) Sodium 137 133 - 145 mmol/L LAB CHEMISTRY METHOD 01/19/2025 11:35 AM EST [facility] LAB Potassium 4.2 3.5 - 5.5 mmol/L LAB CHEMISTRY METHOD 01/19/2025 11:35 AM [facility] LAB Chloride 103 96 - 110 mmol/L LAB CHEMISTRY METHOD 01/19/2025 11:35 AM [facility] LAB CO2 24 21 - 32 mmol/L LAB CHEMISTRY METHOD 01/19/2025 11:35 AM [facility] LAB Anion Gap 10 3 - 11 LAB CHEMISTRY METHOD 01/19/2025 11:35 AM [facility] LAB Glucose 84 70 - 100 mg/dL LAB CHEMISTRY METHOD 01/19/2025 11:35 AM [facility] LAB BUN 9 5 - 25 mg/dL LAB CHEMISTRY METHOD 01/19/2025 11:35 AM [facility] LAB Creatinine 0.45(L) 0.70 - 1.30 mg/dL LAB CHEMISTRY METHOD 01/19/2025 11:35 AM [facility] LAB eGFR 103 >=60 mL/min/1. 73m2 LAB CHEMISTRY METHOD 01/19/2025 11:35 AM [facility] LAB Comment:Calculation based on the??Chronic Kidney Disease Epidemiology Collaboration (CKD-EPI) equation refit??without adjustment for race. BUN/Creatinine Ratio 20.0 LAB CHEMISTRY METHOD 01/19/2025 11:35 AM [facility] LAB Calcium 8.9 8.5 - 10.5 mg/dL LAB CHEMISTRY METHOD 01/19/2025 11:35 AM [facility] LAB AST (SGOT) 36 10 - 42 unit/L LAB CHEMISTRY METHOD 01/19/2025 11:35 AM [facility] LAB ALT (SGPT) 44 10 - 60 unit/L LAB CHEMISTRY METHOD 01/19/2025 11:35 AM [facility] LAB Alkaline Phosphatase 114 42 - 121 unit/L LAB CHEMISTRY METHOD 01/19/2025 11:35 AM [facility] LAB Total Protein 6.2 6.0 - 8.0 g/dL LAB CHEMISTRY METHOD 01/19/2025 11:35 AM [facility] LAB Albumin 3.1(L) 3.2 - 5.0 g/dL LAB CHEMISTRY METHOD 01/19/2025 11:35 AM [facility] Total Bilirubin 0.7 0.0 - 1.4 mg/dL LAB CHEMISTRY METHOD 01/19/2025 11:35 AM [facility] LAB Blood Venous blood specimen / Unknown Venipuncture / Unknown 01/19/2025 5:25 AM EST 01/19/2025 10:00 AM EST us Fidencio Burroughs MD LAB BLOOD ORDERABLES Final Res ult [facility] LAB [address] [place] [address], documented in this encounter Visit Diagnoses Diagnosis Encounter for other general examination documented in this encounter Care Teams Manager Electrical Relationship Specialty Start Date End Date Cj Barber DO [address] [place] [phone] PCP - General 04/21/13 documented as of this encounter
--- OUTSIDE RECORDS SUMMARY | 2025-03-14 13:11 | XMS_ITS | Encounter Summary ---
Author Organization [facility] Address [address] [place] [address] Care Team Providers Care Solution Lead Name Role Phone Cj Barber DO Primary Care Provider [phone] Encounter Details Date Type Department Care Team (Late st Contact Info) Description 03/01/2025 Lab Requisition [facility] - Main Lab 299 [facility] [place] [address] Fidencio Burroughs MD [address] [place] [address] Encounter for other general examination Social History [...] Diagnosis Comments CBC WITH AUTO DIFFERENTIAL Routine 03/01/2025 5:29 AM EDT Encounter for other general examination CBC AND DIFFERENTIAL Routine 03/01/2025 5:29 AM EDT Encounter for other general examination COMPREHENSIVE METABOLIC PANEL Routine 03/01/2025 5:29 AM EDT Encounter for other general examination documented in this encounter Results * (ABNORMAL) CBC auto differential (03/01/2025 5:29 AM EDT) [facility] WBC 8.8 4.8 - 10.8 K/mcL LAB HEMETOLOGY METHOD 03/01/2025 11:58 AM [facility] LAB RBC 3.60(L) 4.50 - 5.50 M/mcL LAB HEMETOLOGY METHOD 03/01/2025 11:58 AM [facility] LAB Hemoglobin 11.0(L) 13.5 - 17.5 g/dL LAB HEMETOLOGY METHOD 03/01/2025 11:58 AM [facility] LAB Hematocrit 33.0(L) 42.0 - 54.0 % LAB HEMETOLOGY METHOD 03/01/2025 11:58 AM [facility] LAB MCV 91.2 79.0 - 98.0 FL LAB HEMETOLOGY METHOD 03/01/2025 11:58 AM [facility] LAB MCH 30.4 27.0 - 32.0 pcg LAB HEMETOLOGY METHOD 03/01/2025 11:58 AM [facility] LAB MCHC 33.3 32.0 - 37.0 g/dL LAB HEMETOLOGY METHOD 03/01/2025 11:58 AM [facility] LAB RDW 13.9 11.0 - 15.0 % LAB HEMETOLOGY METHOD 03/01/2025 11:58 AM [facility] LAB Platelets 03/01/2025 11:58 AM [facility] LAB Comment:Not measured. Unable to quantitate due to platelet clumping MPV 10.2 7.0 - 11.0 FL LAB HEMETOLOGY METHOD 03/01/2025 11:58 AM [facility] LAB NRBC 0.0 <1.0 % LAB HEMETOLOGY METHOD 03/01/2025 11:58 AM [facility] LAB NRBC Absolute 0.00 <0.10 K/mcL LAB HEMETOLOGY METHOD 03/01/2025 11:58 AM [facility] LAB Neutrophils Relative 76.0 % LAB HEMETOLOGY METHOD 03/01/2025 11:58 AM [facility] LAB Lymphocytes Relative 13.4 % LAB HEMETOLOGY METHOD 03/01/2025 11:58 AM [facility] Monocytes Relative 9.0 % LAB HEMETOLOGY METHOD 03/01/2025 11:58 AM [facility] LAB Eosinophils Relative 1.1 % LAB HEMETOLOGY METHOD 03/01/2025 11:58 AM [facility] LAB Basophils Relative 0.2 % LAB HEMETOLOGY METHOD 03/01/2025 11:58 AM [facility] LAB Immature Granulocytes Relative 0.3 % LAB HEMETOLOGY METHOD 03/01/2025 11:58 AM [facility] LAB Neutrophils Absolute 6.69 1.50 - 7.00 K/mcL LAB HEMETOLOGY METHOD 03/01/2025 11:58 AM [facility] LAB Lymphocytes Absolute 1.18 1.00 - 5.00 K/mcL LAB HEMETOLOGY METHOD 03/01/2025 11:58 AM [facility] LAB Monocytes Absolute 0.79 0.20 - 1.00 K/mcL LAB HEMETOLOGY METHOD 03/01/2025 11:58 AM [facility] LAB Eosinophils Absolute 0.10 0.00 - 0.50 K/mcL LAB HEMETOLOGY METHOD 03/01/2025 11:58 AM [facility] LAB Basophils Absolute 0.02 0.00 - 0.20 K/mcL LAB HEMETOLOGY METHOD 03/01/2025 11:58 AM [facility] LAB Immature Granulocytes Absolute 0.03 0.00 - 0.03 K/mcL LAB HEMETOLOGY METHOD 03/01/2025 11:58 AM [facility] LAB Blood Venous blood specimen / Unknown Venipuncture / Unknown 03/01/2025 5:29 AM EDT 03/01/2025 9:52 AM EDT us Fidencio Burroughs MD LAB BLOOD ORDERABLES Final Res ult [facility] [address] [place] [address], [place] [phone] * (ABNORMAL) Comprehensive metabolic panel (03/01/2025 5:29 AM EDT) Sodium 137 133 - 145 mmol/L LAB CHEMISTRY METHOD 03/01/2025 12:08 PM [facility] LAB Potassium 4.1 3.5 - 5.5 mmol/L LAB CHEMISTRY METHOD 03/01/2025 12:08 PM [facility] LAB Chloride 101 96 - 110 mmol/L LAB CHEMISTRY METHOD 03/01/2025 12:08 PM [facility] LAB CO2 30 21 - 32 mmol/L LAB CHEMISTRY METHOD 03/01/2025 12:08 PM [facility] LAB Anion Gap 6 3 - 11 LAB CHEMISTRY METHOD 03/01/2025 12:08 PM [facility] LAB Glucose 82 70 - 100 mg/dL LAB CHEMISTRY METHOD 03/01/2025 12:08 PM [facility] LAB BUN 15 5 - 25 mg/dL LAB CHEMISTRY METHOD 03/01/2025 12:08 PM [facility] LAB Creatinine 0.41(L) 0.70 - 1.30 mg/dL LAB CHEMISTRY METHOD 03/01/2025 12:08 PM [facility] LAB eGFR 106 >=60 mL/min/1. 73m2 LAB CHEMISTRY METHOD 03/01/2025 12:08 PM [facility] LAB Comment:Calculation based on the??Chronic Kidney Disease Epidemiology Collaboration (CKD-EPI) equation refit??without adjustment for race. BUN/Creatinine Ratio 36.6 LAB CHEMISTRY METHOD 03/01/2025 12:08 PM [facility] LAB Calcium 8.7 8.5 - 10.5 mg/dL LAB CHEMISTRY METHOD 03/01/2025 12:08 PM [facility] LAB AST (SGOT) 37 10 - 42 unit/L LAB CHEMISTRY METHOD 03/01/2025 12:08 PM [facility] LAB ALT (SGPT) 64(H) 10 - 60 unit/L LAB CHEMISTRY METHOD 03/01/2025 12:08 PM [facility] LAB Alkaline Phosphatase 105 42 - 121 unit/L LAB CHEMISTRY METHOD 03/01/2025 12:08 PM [facility] LAB Total Protein 5.1(L) 6.0 - 8.0 g/dL LAB CHEMISTRY METHOD 03/01/2025 12:08 PM [facility] LAB Albumin 2.7(L) 3.2 - 5.0 g/dL LAB CHEMISTRY METHOD 03/01/2025 12:08 PM [facility] LAB Total Bilirubin 1.1 0.0 - 1.4 mg/dL LAB CHEMISTRY METHOD 03/01/2025 12:08 PM [facility] LAB Blood Venous blood specimen / Unknown Venipuncture / Unknown 03/01/2025 5:29 AM EDT 03/01/2025 9:52 AM EDT us Fidencio Burroughs MD LAB BLOOD ORDERABLES Final Res ult [facility] [address] [place] [address], documented in this encounter Visit Diagnoses Diagnosis Encounter for other general examination documented in this encounter Care Teams Solution Lead Relationship Specialty Start Date End Date Cj Barber DO [address] [place] [phone] PCP - General 04/21/13 documented as of this encounter
--- OUTSIDE RECORDS SUMMARY | 2025-03-14 13:11 | XMS_ITS | Encounter Summary ---
Author Organization [facility] Address [address] [place] [address] Care Team Providers Care Timers Inspector Name Role Phone Cj Barber DO Primary Care Provider [phone] Encounter Details Date Type Department Care Team (Late st Contact Info) Description 12/17/2024 Lab Requisition [facility] - Main Lab 299 [facility] [place] [address] Horace Gu MD [address] [place] [id number] Urinary tract infection, site not specified Social [...] mirabilis(A ) BAUDILIO 12/19/2024 7:46 AM EST [facility] Comment: Edited result: Previously reported as [...] MICROBIOLOGY - GENERAL TRISTEN GALAVIZ Final Result [facility] [address] [place] [address], documented in this encounter Visit Diagnoses Diagnosis Urinary tract infection, site not specified documented in this encounter Care Teams Timers Inspector Relationship Specialty Start Date End Date Cj Barber DO [address] [place] [phone] PCP - General 04/21/13 documented as of this encounter
--- OUTSIDE RECORDS SUMMARY | 2025-03-14 13:11 | XMS_ITS | Encounter Summary ---
Author Organization [facility] Address [address] [place] [address] Care Team Providers Care Environmental Associate Name Role Phone Cj Barber DO Primary Care Provider [phone] Encounter Details Date Type Department Care Team (Late st Contact Info) Description 02/25/2025 Lab Requisition [facility] - Main Lab 299 [facility] [place] [address] Fidencio Burroughs MD [address] [place] [address] Hematuria, unspecified Social History Tobacco Use Types Packs/Day Years [...] URINALYSIS WITH REFLEX MICROSCOPIC AND CULTURE Routine 02/24/2025 6:00 PM EDT Hematuria, unspecified [facility] URINE CULTURE TUBE Routine 02/24/2025 6:00 PM EDT Hematuria, unspecified URINALYSIS WITH REFLEX MICROSCOPIC AND CULTURE Routine 02/24/2025 6:00 PM EDT Hematuria, unspecified CULTURE URINE Routine 02/24/2025 6:00 PM EDT Hematuria, unspecified documented in this encounter Results * (ABNORMAL) Culture urine (02/24/2025 6:00 PM EDT) Pathologist [facility] Culture, Urine 10,000-49,0 00 CFU/mL Lucrecia albicans/du bliniensis( A) 02/27/2025 12:30 PM EDT [facility] LAB Comment: Edited result: Previously reported as Yeast on 02/26/2025 at 1030 EDT. Urine Indwelling urinary catheter / Unknown 02/24/2025 6:00 PM EDT 02/25/2025 12:09 PM EDT us Fidencio Burroughs MD LAB MICROBIOLOGY - GENERAL ORD ERABLES Final Result [facility] LAB [address] [place] [address], [place] [phone] * (ABNORMAL) Urinalysis with reflex microscopic and culture (02/24/2025 6:00 PM EDT) Pathologist [facility] Specific [place] Urine 1.023 1.003 - 1.030 LAB URINALYSIS - AUTOMATED METHOD 02/25/2025 12:09 PM EDT [facility] pH, Urine 6.0 5.0 - 8.0 pH LAB URINALYSIS - AUTOMATED METHOD 02/25/2025 12:09 PM EDT [facility] Leukocytes, Urine Large(A) Negative LAB URINALYSIS - AUTOMATED METHOD 02/25/2025 12:09 PM EDT [facility] Nitrite, Urine Negative Negative LAB URINALYSIS - AUTOMATED METHOD 02/25/2025 12:09 PM EDT [facility] Protein, Urine 30(A) <=Trace mg/dL LAB URINALYSIS - AUTOMATED METHOD 02/25/2025 12:09 PM EDT [facility] Glucose, Urine Negative Negative mg/dL LAB URINALYSIS - AUTOMATED METHOD 02/25/2025 12:09 PM [facility] Ketones, Urine Negative Negative mg/dL LAB URINALYSIS - AUTOMATED METHOD 02/25/2025 12:09 PM [facility] Urobilinogen , Urine 1.0 0.2 - 1.0 mg/dL LAB URINALYSIS - AUTOMATED METHOD 02/25/2025 12:09 PM [facility] Bilirubin, Urine Negative Negative LAB URINALYSIS - AUTOMATED METHOD 02/25/2025 12:09 PM [facility] Blood, Urine Large(A) Negative LAB URINALYSIS - AUTOMATED METHOD 02/25/2025 12:09 PM [facility] RBC, Urine 90.1(H) 0 - 4 /HPF LAB URINALYSIS - AUTOMATED METHOD 02/25/2025 12:09 PM [facility] WBC, Urine 251.6(H) 0 - 4 /HPF LAB URINALYSIS - AUTOMATED METHOD 02/25/2025 12:09 PM [facility] Squamous Epithelial, Urine 3 0 - 60 /LPF LAB URINALYSIS - AUTOMATED METHOD 02/25/2025 12:09 PM [facility] Bacteria, Urine Negative Negative /HPF LAB URINALYSIS - AUTOMATED METHOD 02/25/2025 12:09 PM [facility] Hyaline Casts, Urine 2.4 0 - 3 /LPF LAB URINALYSIS - AUTOMATED METHOD 02/25/2025 12:09 PM [facility] Yeast, Urine Present(A) None /HPF LAB URINALYSIS - AUTOMATED METHOD 02/25/2025 12:09 PM [facility] Urine Indwelling urinary catheter / Unknown 02/24/2025 6:00 PM EDT 02/25/2025 11:30 AM EDT us Fidencio Burroughs MD LAB URINE ORDERABLES Final Res ult Performing Organization Address [facility]/ZIP Co de Phone Number [facility] [address] [place] [address], [place] [phone] * [facility] urine culture tube (02/24/2025 6:00 PM EDT) Extra Tube Hold for add-ons. 02/25/2025 1:01 PM EDT [facility] Comment:Auto resulted. Urine Indwelling urinary catheter / Unknown 02/24/2025 6:00 PM EDT 02/25/2025 11:30 AM EDT Fidencio Burroughs MD LAB URINE ORDERABLES Final Res ult Performing Organization Address [facility]/ZIP Co de Phone Number [facility] [address] [place] [address], [place] [phone] documented in this encounter Visit Diagnoses Diagnosis Hematuria, unspecified documented in this encounter Care Teams Environmental Associate Relationship Specialty Start Date End Date Cj Barber DO [address] [place] [phone] PCP - General 04/21/13 documented as of this encounter
--- OUTSIDE RECORDS SUMMARY | 2025-03-14 13:11 | XMS_ITS | Encounter Summary ---
Author Organization [facility] Address [address] [place] [address] Care Team Providers Care Construction Skills Teacher Name Role Phone Cj Barber DO Primary Care Provider [phone] Encounter Details Date Type Department Care Team (Late st Contact Info) Description 01/15/2025 Lab Requisition [facility] - Main Lab 299 [facility] [place] [address] Fidencio Burroughs MD [address] [place] [phone] Encounter for other general examination Social History [...] CBC auto differential (01/15/2025 6:39 AM EST) WBC 8.0 4.8 - 10.8 K/mcL LAB HEMETOLOGY METHOD 01/15/2025 11:56 AM [facility] LAB RBC 4.50 4.50 - 5.50 M/mcL LAB HEMETOLOGY METHOD 01/15/2025 11:56 AM [facility] LAB Hemoglobin 13.9 13.5 - 17.5 g/dL LAB HEMETOLOGY METHOD 01/15/2025 11:56 AM [facility] LAB Hematocrit 42.3 42.0 - 54.0 % LAB HEMETOLOGY METHOD 01/15/2025 11:56 AM [facility] LAB MCV 95.1 79.0 - 98.0 FL LAB HEMETOLOGY METHOD 01/15/2025 11:56 AM [facility] LAB MCH 31.2 27.0 - 32.0 pcg LAB HEMETOLOGY METHOD 01/15/2025 11:56 AM [facility] LAB MCHC 32.9 32.0 - 37.0 g/dL LAB HEMETOLOGY METHOD 01/15/2025 11:56 AM [facility] LAB RDW 13.2 11.0 - 15.0 % LAB HEMETOLOGY METHOD 01/15/2025 11:56 AM [facility] LAB Platelets 01/15/2025 11:56 AM [facility] LAB Comment:Not measured. Platel ets appear adequate but clumped MPV 11.4(H) 7.0 - 11.0 FL LAB HEMETOLOGY METHOD 01/15/2025 11:56 AM [facility] NRBC 0.0 <1.0 % LAB HEMETOLOGY METHOD 01/15/2025 11:56 AM [facility] LAB NRBC Absolute 0.00 <0.10 K/mcL LAB HEMETOLOGY METHOD 01/15/2025 11:56 AM [facility] Neutrophils Relative 76.9 % LAB HEMETOLOGY METHOD 01/15/2025 11:56 AM [facility] Lymphocytes Relative 11.4 % LAB HEMETOLOGY METHOD 01/15/2025 11:56 AM [facility] Monocytes Relative 10.7 % LAB HEMETOLOGY METHOD 01/15/2025 11:56 AM [facility] Eosinophils Relative 0.6 % LAB HEMETOLOGY METHOD 01/15/2025 11:56 AM [facility] Basophils Relative 0.2 % LAB HEMETOLOGY METHOD 01/15/2025 11:56 AM [facility] Immature Granulocytes Relative 0.2 % LAB HEMETOLOGY METHOD 01/15/2025 11:56 AM [facility] LAB Neutrophils Absolute 6.15 1.50 - 7.00 K/mcL LAB HEMETOLOGY METHOD 01/15/2025 11:56 AM [facility] Lymphocytes Absolute 0.91(L) 1.00 - 5.00 K/mcL LAB HEMETOLOGY METHOD 01/15/2025 11:56 AM [facility] Monocytes Absolute 0.86 0.20 - 1.00 K/mcL LAB HEMETOLOGY METHOD 01/15/2025 11:56 AM [facility] LAB Eosinophils Absolute 0.05 0.00 - 0.50 K/mcL LAB HEMETOLOGY METHOD 01/15/2025 11:56 AM [facility] Basophils Absolute 0.02 0.00 - 0.20 K/mcL LAB HEMETOLOGY METHOD 01/15/2025 11:56 AM [facility] LAB Immature Granulocytes Absolute 0.02 0.00 - 0.03 K/mcL LAB HEMETOLOGY METHOD 01/15/2025 11:56 AM [facility] Blood Venous blood specimen / Unknown Venipuncture / Unknown 01/15/2025 6:39 AM EST 01/15/2025 10:03 AM EST Fidencio Burroughs MD LAB BLOOD ORDERABLES Final Res ult [facility] [address] [place] [address], [place] [phone] * Magnesium (01/15/2025 6:39 AM EST) Magnesium 2.0 1.9 - 2.6 mg/dL LAB CHEMISTRY METHOD 01/15/2025 11:40 AM EST [facility] Blood Venous blood specimen / Unknown Venipuncture / Unknown 01/15/2025 6:39 AM EST 01/15/2025 10:03 AM EST Fidencio Burroughs MD LAB BLOOD ORDERABLES Final Res ult [facility] [address] [place] [address], [place] [phone] * (ABNORMAL) Comprehensive metabolic panel (01/15/2025 6:39 AM EST) Sodium 136 133 - 145 mmol/L LAB CHEMISTRY METHOD 01/15/2025 11:40 AM [facility] Potassium 3.9 3.5 - 5.5 mmol/L LAB CHEMISTRY METHOD 01/15/2025 11:40 AM [facility] Chloride 103 96 - 110 mmol/L LAB CHEMISTRY METHOD 01/15/2025 11:40 AM EST [facility] CO2 28 21 - 32 mmol/L LAB CHEMISTRY METHOD 01/15/2025 11:40 AM EST [facility] Anion Gap 5 3 - 11 LAB CHEMISTRY METHOD 01/15/2025 11:40 AM EST [facility] Glucose 89 70 - 100 mg/dL LAB CHEMISTRY METHOD 01/15/2025 11:40 AM [facility] BUN 15 5 - 25 mg/dL LAB CHEMISTRY METHOD 01/15/2025 11:40 AM [facility] Creatinine 0.48(L) 0.70 - 1.30 mg/dL LAB CHEMISTRY METHOD 01/15/2025 11:40 AM [facility] eGFR 101 >=60 mL/min/1. 73m2 LAB CHEMISTRY METHOD 01/15/2025 11:40 AM [facility] Comment:Calculation based on the??Chronic Kidney Disease Epidemiology Collaboration (CKD-EPI) equation refit??without adjustment for race. BUN/Creatinine Ratio 31.3 LAB CHEMISTRY METHOD 01/15/2025 11:40 AM [facility] Calcium 8.8 8.5 - 10.5 mg/dL LAB CHEMISTRY METHOD 01/15/2025 11:40 AM [facility] AST (SGOT) 28 10 - 42 unit/L LAB CHEMISTRY METHOD 01/15/2025 11:40 AM [facility] ALT (SGPT) 31 10 - 60 unit/L LAB CHEMISTRY METHOD 01/15/2025 11:40 AM [facility] Alkaline Phosphatase 104 42 - 121 unit/L LAB CHEMISTRY METHOD 01/15/2025 11:40 AM [facility] Total Protein 5.9(L) 6.0 - 8.0 g/dL LAB CHEMISTRY METHOD 01/15/2025 11:40 AM [facility] Albumin 2.9(L) 3.2 - 5.0 g/dL LAB CHEMISTRY METHOD 01/15/2025 11:40 AM [facility] Total Bilirubin 1.0 0.0 - 1.4 mg/dL LAB CHEMISTRY METHOD 01/15/2025 11:40 AM [facility] Blood Venous blood specimen / Unknown Venipuncture / Unknown 01/15/2025 6:39 AM EST 01/15/2025 10:03 AM EST us Fidencio Burroughs MD LAB BLOOD ORDERABLES Final Res ult [facility] [address] [place] [address], documented in this encounter Visit Diagnoses Diagnosis Encounter for other general examination documented in this encounter Care Teams Construction Skills Teacher Relationship Specialty Start Date End Date Cj Barber DO [address] [place] [phone] PCP - General 04/21/13 documented as of this encounter
--- OUTSIDE RECORDS SUMMARY | 2025-03-14 13:11 | XMS_ITS | Encounter Summary ---
Author Organization [facility] Address [address] [place] [address] Care Team Providers Care Scrub Tech Name Role Phone Cj Barber DO Primary Care Provider [phone] Encounter Details Date Type Department Care Team (Late st Contact Info) Description 03/01/2025 Lab Requisition [facility] - Main Lab 299 [facility] [place] [address] Fidencio Burroughs MD [address] [place] [phone] Encounter for other general examination Social History [...] Name Priority Date/Time Associated Diagnosis Comments CULTURE WOUND WITH GRAM STAIN Routine 03/01/2025 5:22 AM EDT Encounter for other general examination CULTURE FUNGAL, OTHER Routine 03/01/2025 5:22 AM EDT Encounter for other general examination documented in this encounter Results * (ABNORMAL) Culture fungal, other (03/01/2025 5:22 AM EDT) Culture, Fungus Lucrecia albicans/du bliniensis( A) 03/07/2025 12:41 PM EDT [facility] Comment: Edited result: Previously reported as Yeast on 03/07/2025 at 1047 EDT. Swab Penile structure / Unknown 03/01/2025 5:22 AM EDT 03/01/2025 10:41 AM EDT Fidencio Burroughs MD LAB MICROBIOLOGY - GENERAL ORD ERABLES Final Result [facility] [address] [place] [address], * (ABNORMAL) Culture wound with gram stain (03/01/2025 5:22 AM EDT) Culture, Wound Proteus mirabilis(A) BAUDILIO 03/09/2025 9:56 AM EDT [facility] Comment: The organism value for this result has been updated. These results have been appended to the previously preliminary verified report. This is an edited result. Previous organism was Gram negative bacilli on 03/02/2025 at 1315 EDT. Edited result: Previously reported as Proteus species on 03/03/2025 at 1152 EDT. Culture, Wound Enterococcus faecalis(A) BAUDILIO 03/09/2025 9:56 AM EDT [facility] Comment: The organism value for this result has been updated. These results have been appended to the previously preliminary verified report. This is an edited result. Previous organism was Streptococcus Gamma non hemolytic on 03/06/2025 at 0911 EDT. Culture, Wound Pseudomonas aeruginosa(A) BAUDILIO 03/09/2025 9:56 AM EDT [facility] Comment: The organism value for this result has been updated. These results have been appended to the previously preliminary verified report. This is an edited result. Previous organism was Gram negative bacilli on 03/07/2025 at 1012 EDT. Gram Stain Result Moderate Polymorphonuclear leukocytes 03/09/2025 9:56 AM EDT [facility] Gram Stain Result Few Epithelial cells 03/09/2025 9:56 AM EDT [facility] Gram Stain Result No organisms seen 03/09/2025 9:56 AM EDT [facility] Swab Penile structure / Unknown 03/01/2025 5:22 AM EDT 03/01/2025 10:41 AM EDT Narrative Organism Antibiotic Method Susceptibility Proteus mirabilis Amoxicillin/Clavulanate BAUDILIO 4 ug/ml: Susceptible Proteus mirabilis Ampicillin/Sulbactam BAUDILIO <=2 ug/ml: Susceptible Proteus mirabilis Piperacillin/Tazobactam BAUDILIO <=4 ug/ml: Susceptible Proteus mirabilis Cefazolin (Other) BAUDILIO 4 ug/ml: Intermediate Proteus mirabilis Cefoxitin BAUDILIO 8 ug/ml: Susceptible Proteus mirabilis Ceftazidime BAUDILIO <=0.5 ug/ml: Susceptible Proteus mirabilis Ceftriaxone BAUDILIO <=0.25 ug/ml: Susceptible Proteus mirabilis Cefepime BAUDILIO <=0.12 ug/ml: Susceptible Proteus mirabilis Meropenem BAUDILIO 1 ug/ml: Susceptible Proteus mirabilis Amikacin BAUDILIO 4 ug/ml: Susceptible Proteus mirabilis Gentamicin BAUDILIO <=1 ug/ml: Susceptible Proteus mirabilis Ciprofloxacin BAUDILIO <=0.06 ug/ml: Susceptible Proteus mirabilis Levofloxacin BAUDILIO <=0.12 ug/ml: Susceptible Proteus mirabilis Trimethoprim/Sulfame thoxa zole BAUDILIO <=20 ug/ml: Susceptible Enterococcus faecalis Benzylpenicillin BAUDILIO 1 ug/ml: Susceptible Enterococcus faecalis Ampicillin BAUDILIO <=2 ug/ml: Susceptible Enterococcus faecalis Linezolid BAUDILIO 2 ug/ml: Susceptible Enterococcus faecalis Vancomycin BAUDLIIO 1 ug/ml: Susceptible Pseudomonas aeruginosa Piperacillin/Tazobactam BAUDILIO 8 ug/ml: Susceptible Pseudomonas aeruginosa Ceftazidime BAUDILIO 2 ug/ml: Susceptible Pseudomonas aeruginosa Meropenem BAUDILIO 0.5 ug/ml: Susceptible Pseudomonas aeruginosa Ciprofloxacin BAUDILIO 0.12 ug/ml: Susceptible Pseudomonas aeruginosa Levofloxacin BAUDILIO 0.5 ug/ml: Susceptible Pseudomonas aeruginosa Cefepime DISK DIFFUSION Susceptible Fidencio Burroughs MD LAB MICROBIOLOGY - GENERAL ORD ERABLES Final Result [facility] [address] [place] [address], documented in this encounter Visit Diagnoses Diagnosis Encounter for other general examination documented in this encounter Care Teams Scrub Tech Relationship Specialty Start Date End Date Cj Barber DO [address] [place] [phone] PCP - General 04/21/13 documented as of this encounter
--- OUTSIDE RECORDS SUMMARY | 2025-03-14 13:11 | XMS_ITS | Encounter Summary ---
Author Organization [facility] Address [address] [place] [address] Care Team Providers Care Food Checker Name Role Phone Cj Barber DO Primary Care Provider [phone] Encounter Details Date Type Department Care Team (Late st Contact Info) Description 02/26/2025 Lab Requisition [facility] - Main Lab 299 [facility] [place] [address] Fidencio Burroughs MD [address] [place] [address] Encounter for other general examination Social History [...] Diagnosis Comments CBC WITH AUTO DIFFERENTIAL Routine 02/26/2025 6:35 AM EDT Encounter for other general examination CBC AND DIFFERENTIAL Routine 02/26/2025 6:35 AM EDT Encounter for other general examination COMPREHENSIVE METABOLIC PANEL Routine 02/26/2025 6:35 AM EDT Encounter for other general examination documented in this encounter Results * (ABNORMAL) CBC auto differential (02/26/2025 6:35 AM EDT) [facility] WBC 11.9(H) 4.8 - 10.8 K/mcL LAB HEMETOLOGY METHOD 02/26/2025 11:12 AM [facility] RBC 4.20(L) 4.50 - 5.50 M/mcL LAB HEMETOLOGY METHOD 02/26/2025 11:12 AM [facility] Hemoglobin 12.6(L) 13.5 - 17.5 g/dL LAB HEMETOLOGY METHOD 02/26/2025 11:12 AM [facility] Hematocrit 38.4(L) 42.0 - 54.0 % LAB HEMETOLOGY METHOD 02/26/2025 11:12 AM [facility] MCV 92.5 79.0 - 98.0 FL LAB HEMETOLOGY METHOD 02/26/2025 11:12 AM [facility] MCH 30.4 27.0 - 32.0 pcg LAB HEMETOLOGY METHOD 02/26/2025 11:12 AM [facility] MCHC 32.8 32.0 - 37.0 g/dL LAB HEMETOLOGY METHOD 02/26/2025 11:12 AM [facility] RDW 13.6 11.0 - 15.0 % LAB HEMETOLOGY METHOD 02/26/2025 11:12 AM [facility] Platelets 02/26/2025 11:12 AM [facility] Comment:Not measured. Platel ets appear adequate but clumped MPV 10.5 7.0 - 11.0 FL LAB HEMETOLOGY METHOD 02/26/2025 11:12 AM [facility] NRBC 0.0 <1.0 % LAB HEMETOLOGY METHOD 02/26/2025 11:12 AM [facility] NRBC Absolute 0.00 <0.10 K/mcL LAB HEMETOLOGY METHOD 02/26/2025 11:12 AM [facility] Neutrophils Relative 78.4 % LAB HEMETOLOGY METHOD 02/26/2025 11:12 AM [facility] Lymphocytes Relative 13.1 % LAB HEMETOLOGY METHOD 02/26/2025 11:12 AM [facility] Monocytes Relative 7.0 % LAB HEMETOLOGY METHOD 02/26/2025 11:12 AM [facility] Eosinophils Relative 1.0 % LAB HEMETOLOGY METHOD 02/26/2025 11:12 AM [facility] Basophils Relative 0.2 % LAB HEMETOLOGY METHOD 02/26/2025 11:12 AM [facility] Immature Granulocytes Relative 0.3 % LAB HEMETOLOGY METHOD 02/26/2025 11:12 AM [facility] Neutrophils Absolute 9.33(H) 1.50 - 7.00 K/mcL LAB HEMETOLOGY METHOD 02/26/2025 11:12 AM [facility] Lymphocytes Absolute 1.56 1.00 - 5.00 K/mcL LAB HEMETOLOGY METHOD 02/26/2025 11:12 AM [facility] Monocytes Absolute 0.83 0.20 - 1.00 K/mcL LAB HEMETOLOGY METHOD 02/26/2025 11:12 AM [facility] Eosinophils Absolute 0.12 0.00 - 0.50 K/mcL LAB HEMETOLOGY METHOD 02/26/2025 11:12 AM [facility] Basophils Absolute 0.02 0.00 - 0.20 K/mcL LAB HEMETOLOGY METHOD 02/26/2025 11:12 AM [facility] Immature Granulocytes Absolute 0.04(H) 0.00 - 0.03 K/mcL LAB HEMETOLOGY METHOD 02/26/2025 11:12 AM [facility] Blood Venous blood specimen / Unknown Venipuncture / Unknown 02/26/2025 6:35 AM EDT 02/26/2025 9:37 AM EDT us Fidencio Burroughs MD LAB BLOOD ORDERABLES Final Res ult [facility] [address] [place] [address], * (ABNORMAL) Comprehensive metabolic panel (02/26/2025 6:35 AM EDT) Sodium 135 133 - 145 mmol/L LAB CHEMISTRY METHOD 02/26/2025 11:29 AM [facility] Potassium 4.1 3.5 - 5.5 mmol/L LAB CHEMISTRY METHOD 02/26/2025 11:29 AM [facility] Chloride 98 96 - 110 mmol/L LAB CHEMISTRY METHOD 02/26/2025 11:29 AM [facility] CO2 33(H) 21 - 32 mmol/L LAB CHEMISTRY METHOD 02/26/2025 11:29 AM [facility] Anion Gap 4 3 - 11 LAB CHEMISTRY METHOD 02/26/2025 11:29 AM [facility] Glucose 83 70 - 100 mg/dL LAB CHEMISTRY METHOD 02/26/2025 11:29 AM [facility] BUN 17 5 - 25 mg/dL LAB CHEMISTRY METHOD 02/26/2025 11:29 AM [facility] Creatinine 0.50(L) 0.70 - 1.30 mg/dL LAB CHEMISTRY METHOD 02/26/2025 11:29 AM [facility] eGFR 100 >=60 mL/min/1. 73m2 LAB CHEMISTRY METHOD 02/26/2025 11:29 AM [facility] Comment:Calculation based on the??Chronic Kidney Disease Epidemiology Collaboration (CKD-EPI) equation refit??without adjustment for race. BUN/Creatinine Ratio 34.0 LAB CHEMISTRY METHOD 02/26/2025 11:29 AM [facility] Calcium 8.7 8.5 - 10.5 mg/dL LAB CHEMISTRY METHOD 02/26/2025 11:29 AM [facility] AST (SGOT) 59(H) 10 - 42 unit/L LAB CHEMISTRY METHOD 02/26/2025 11:29 AM [facility] ALT (SGPT) 95(H) 10 - 60 unit/L LAB CHEMISTRY METHOD 02/26/2025 11:29 AM [facility] Alkaline Phosphatase 105 42 - 121 unit/L LAB CHEMISTRY METHOD 02/26/2025 11:29 AM [facility] Total Protein 5.8(L) 6.0 - 8.0 g/dL LAB CHEMISTRY METHOD 02/26/2025 11:29 AM [facility] Albumin 3.1(L) 3.2 - 5.0 g/dL LAB CHEMISTRY METHOD 02/26/2025 11:29 AM [facility] Total Bilirubin 1.0 0.0 - 1.4 mg/dL LAB CHEMISTRY METHOD 02/26/2025 11:29 AM [facility] Blood Venous blood specimen / Unknown Venipuncture / Unknown 02/26/2025 6:35 AM EDT 02/26/2025 9:37 AM EDT us Fidencio Burroughs MD LAB BLOOD ORDERABLES Final Res ult [facility] [address] [place] [address], documented in this encounter Visit Diagnoses Diagnosis Encounter for other general examination documented in this encounter Care Teams Food Checker Relationship Specialty Start Date End Date Cj Barber DO [address] [place] [phone] PCP - General 04/21/13 documented as of this encounter
--- OUTSIDE RECORDS SUMMARY | 2025-03-14 13:11 | XMS_ITS | Encounter Summary ---
Author Organization [facility] Address [address] [place] [address] Care Team Providers Care Chlorine Operator Name Role Phone Cj Barber DO Primary Care Provider [phone] Encounter Details Date Type Department Care Team (Late st Contact Info) Description 02/19/2025 Lab Requisition [facility] - Main Lab 299 [facility] [place] [address] Fidencio Burroughs MD [address] [place] [address] Encounter for other general examination Social History [...] Diagnosis Comments CBC WITH AUTO DIFFERENTIAL Routine 02/19/2025 5:42 AM EDT Encounter for other general examination CBC AND DIFFERENTIAL Routine 02/19/2025 5:42 AM EDT Encounter for other general examination MAGNESIUM Routine 02/19/2025 5:42 AM EDT Encounter for other general examination COMPREHENSIVE METABOLIC PANEL Routine 02/19/2025 5:42 AM EDT Encounter for other general examination documented in this encounter Results * (ABNORMAL) CBC auto differential (02/19/2025 5:42 AM EDT) WBC 10.5 4.8 - 10.8 K/mcL LAB HEMETOLOGY METHOD 02/19/2025 12:54 PM EDT [facility] RBC 5.10 4.50 - 5.50 M/mcL LAB HEMETOLOGY METHOD 02/19/2025 12:54 PM EDT [facility] Hemoglobin 15.6 13.5 - 17.5 g/dL LAB HEMETOLOGY METHOD 02/19/2025 12:54 PM EDT [facility] Hematocrit 47.5 42.0 - 54.0 % LAB HEMETOLOGY METHOD 02/19/2025 12:54 PM EDT [facility] MCV 92.4 79.0 - 98.0 FL LAB HEMETOLOGY METHOD 02/19/2025 12:54 PM EDT [facility] MCH 30.4 27.0 - 32.0 pcg LAB HEMETOLOGY METHOD 02/19/2025 12:54 PM EDT [facility] MCHC 32.8 32.0 - 37.0 g/dL LAB HEMETOLOGY METHOD 02/19/2025 12:54 PM EDT [facility] RDW 12.8 11.0 - 15.0 % LAB HEMETOLOGY METHOD 02/19/2025 12:54 PM EDT [facility] Platelets 02/19/2025 12:54 PM EDT [facility] Comment:Not measured. Platel ets appear adequate but clumped Suggest drawing blue top tube with CBC MPV 10.7 7.0 - 11.0 FL LAB HEMETOLOGY METHOD 02/19/2025 12:54 PM EDT [facility] NRBC 0.0 <1.0 % LAB HEMETOLOGY METHOD 02/19/2025 12:54 PM EDT [facility] NRBC Absolute 0.00 <0.10 K/mcL LAB HEMETOLOGY METHOD 02/19/2025 12:54 PM [facility] Neutrophils Relative 83.5 % LAB HEMETOLOGY METHOD 02/19/2025 12:54 PM [facility] Lymphocytes Relative 10.5 % LAB HEMETOLOGY METHOD 02/19/2025 12:54 PM [facility] Monocytes Relative 5.4 % LAB HEMETOLOGY METHOD 02/19/2025 12:54 PM [facility] Eosinophils Relative 0.0 % LAB HEMETOLOGY METHOD 02/19/2025 12:54 PM [facility] Basophils Relative 0.1 % LAB HEMETOLOGY METHOD 02/19/2025 12:54 PM [facility] Immature Granulocytes Relative 0.5 % LAB HEMETOLOGY METHOD 02/19/2025 12:54 PM [facility] Neutrophils Absolute 8.77(H) 1.50 - 7.00 K/mcL LAB HEMETOLOGY METHOD 02/19/2025 12:54 PM [facility] Lymphocytes Absolute 1.10 1.00 - 5.00 K/mcL LAB HEMETOLOGY METHOD 02/19/2025 12:54 PM [facility] Monocytes Absolute 0.57 0.20 - 1.00 K/mcL LAB HEMETOLOGY METHOD 02/19/2025 12:54 PM [facility] Eosinophils Absolute 0.00 0.00 - 0.50 K/mcL LAB HEMETOLOGY METHOD 02/19/2025 12:54 PM [facility] Basophils Absolute 0.01 0.00 - 0.20 K/mcL LAB HEMETOLOGY METHOD 02/19/2025 12:54 PM [facility] Immature Granulocytes Absolute 0.05(H) 0.00 - 0.03 K/mcL LAB HEMETOLOGY METHOD 02/19/2025 12:54 PM EDT [facility] Blood Venous blood specimen / Unknown Venipuncture / Unknown 02/19/2025 5:42 AM EDT 02/19/2025 9:50 AM EDT Fidencio Burroughs MD LAB BLOOD ORDERABLES Final Res ult Performing Organization Address [facility]/ZIP Co de Phone Number [facility] [address] [place] [address], [place] [phone] * Magnesium (02/19/2025 5:42 AM EDT) Pathologist [facility] Magnesium 2.4 1.9 - 2.6 mg/dL LAB CHEMISTRY METHOD 02/19/2025 12:23 PM EDT [facility] Blood Venous blood specimen / Unknown Venipuncture / Unknown 02/19/2025 5:42 AM EDT 02/19/2025 9:50 AM EDT Fidencio Burroughs MD LAB BLOOD ORDERABLES Final Res ult Performing Organization Address [facility]/ZIP Co de Phone Number [facility] [address] [place] [address], [place] [phone] * (ABNORMAL) Comprehensive metabolic panel (02/19/2025 5:42 AM EDT) Sodium 131(L) 133 - 145 mmol/L LAB CHEMISTRY METHOD 02/19/2025 12:41 PM EDT [facility] Potassium 4.5 3.5 - 5.5 mmol/L LAB CHEMISTRY METHOD 02/19/2025 12:41 PM EDT [facility] Chloride 94(L) 96 - 110 mmol/L LAB CHEMISTRY METHOD 02/19/2025 12:41 PM EDT [facility] CO2 29 21 - 32 mmol/L LAB CHEMISTRY METHOD 02/19/2025 12:41 PM [facility] Anion Gap 8 3 - 11 LAB CHEMISTRY METHOD 02/19/2025 12:41 PM [facility] Glucose 61(L) 70 - 100 mg/dL LAB CHEMISTRY METHOD 02/19/2025 12:41 PM [facility] BUN 23 5 - 25 mg/dL LAB CHEMISTRY METHOD 02/19/2025 12:41 PM [facility] Creatinine 0.70 0.70 - 1.30 mg/dL LAB CHEMISTRY METHOD 02/19/2025 12:41 PM [facility] eGFR 90 >=60 mL/min/1. 73m2 LAB CHEMISTRY METHOD 02/19/2025 12:41 PM [facility] Comment:Calculation based on the??Chronic Kidney Disease Epidemiology Collaboration (CKD-EPI) equation refit??without adjustment for race. BUN/Creatinine Ratio 32.9 LAB CHEMISTRY METHOD 02/19/2025 12:41 PM [facility] Calcium 9.1 8.5 - 10.5 mg/dL LAB CHEMISTRY METHOD 02/19/2025 12:41 PM [facility] AST (SGOT) 31 10 - 42 unit/L LAB CHEMISTRY METHOD 02/19/2025 12:41 PM [facility] ALT (SGPT) 90(H) 10 - 60 unit/L LAB CHEMISTRY METHOD 02/19/2025 12:41 PM [facility] Alkaline Phosphatase 127(H) 42 - 121 unit/L LAB CHEMISTRY METHOD 02/19/2025 12:41 PM [facility] Total Protein 6.2 6.0 - 8.0 g/dL LAB CHEMISTRY METHOD 02/19/2025 12:41 PM [facility] Albumin 3.3 3.2 - 5.0 g/dL LAB CHEMISTRY METHOD 02/19/2025 12:41 PM EDT [facility] Total Bilirubin 0.7 0.0 - 1.4 mg/dL LAB CHEMISTRY METHOD 02/19/2025 12:41 PM EDT [facility] Blood Venous blood specimen / Unknown Venipuncture / Unknown 02/19/2025 5:42 AM EDT 02/19/2025 9:50 AM EDT us Fidencio Burroughs MD LAB BLOOD ORDERABLES Final Res ult [facility] [address] [place] [address], documented in this encounter Visit Diagnoses Diagnosis Encounter for other general examination documented in this encounter Care Teams Chlorine Operator Relationship Specialty Start Date End Date Cj Barber DO [address] [place] [phone] PCP - General 04/21/13 documented as of this encounter
--- OUTSIDE RECORDS SUMMARY | 2025-03-14 13:11 | XMS_ITS | Encounter Summary ---
Author Organization [facility] Address [address] [place] [address] Care Team Providers Care System Software Developer Name Role Phone Cj Barber DO Primary Care Provider [phone] Encounter Details Date Type Department Care Team (Late st Contact Info) Description 02/24/2025 Lab Requisition [facility] - Main Lab 299 [facility] [place] [address] Fidencio Burroughs MD [address] [place] [address] Encounter for other general examination Social History [...] Associated Diagnosis Comments COMPLETE BLOOD COUNT Routine 02/24/2025 5:01 AM EDT Encounter for other general examination COMPREHENSIVE METABOLIC PANEL Routine 02/24/2025 5:01 AM EDT Encounter for other general examination documented in this encounter Results * (ABNORMAL) Complete blood count (02/24/2025 5:01 AM EDT) WBC 12.6(H) 4.8 - 10.8 K/mcL LAB HEMETOLOGY METHOD 02/24/2025 10:22 AM [facility] RBC 4.20(L) 4.50 - 5.50 M/mcL LAB HEMETOLOGY METHOD 02/24/2025 10:22 AM [facility] Hemoglobin 12.6(L) 13.5 - 17.5 g/dL LAB HEMETOLOGY METHOD 02/24/2025 10:22 AM [facility] Hematocrit 37.1(L) 42.0 - 54.0 % LAB HEMETOLOGY METHOD 02/24/2025 10:22 AM [facility] MCV 89.4 79.0 - 98.0 FL LAB HEMETOLOGY METHOD 02/24/2025 10:22 AM [facility] MCH 30.4 27.0 - 32.0 pcg LAB HEMETOLOGY METHOD 02/24/2025 10:22 AM [facility] MCHC 34.0 32.0 - 37.0 g/dL LAB HEMETOLOGY METHOD 02/24/2025 10:22 AM [facility] RDW 13.3 11.0 - 15.0 % LAB HEMETOLOGY METHOD 02/24/2025 10:22 AM [facility] Platelets 02/24/2025 10:22 AM [facility] Comment:Not measured. Platel ets appear adequate but clumped MPV 10.3 7.0 - 11.0 FL LAB HEMETOLOGY METHOD 02/24/2025 10:22 AM [facility] NRBC 0.0 <1.0 % LAB HEMETOLOGY METHOD 02/24/2025 10:22 AM [facility] NRBC Absolute 0.00 <0.10 K/mcL LAB HEMETOLOGY METHOD 02/24/2025 10:22 AM [facility] Blood Venous blood specimen / Unknown Venipuncture / Unknown 02/24/2025 5:01 AM EDT 02/24/2025 8:10 AM EDT Fidencio Burroughs MD LAB BLOOD ORDERABLES Final Res ult [facility] [address] [place] [address], * (ABNORMAL) Comprehensive metabolic panel (02/24/2025 5:01 AM EDT) Sodium 135 133 - 145 mmol/L LAB CHEMISTRY METHOD 02/24/2025 10:11 AM [facility] Potassium 3.9 3.5 - 5.5 mmol/L LAB CHEMISTRY METHOD 02/24/2025 10:11 AM [facility] Chloride 98 96 - 110 mmol/L LAB CHEMISTRY METHOD 02/24/2025 10:11 AM [facility] CO2 29 21 - 32 mmol/L LAB CHEMISTRY METHOD 02/24/2025 10:11 AM [facility] Anion Gap 8 3 - 11 LAB CHEMISTRY METHOD 02/24/2025 10:11 AM [facility] Glucose 73 70 - 100 mg/dL LAB CHEMISTRY METHOD 02/24/2025 10:11 AM [facility] BUN 18 5 - 25 mg/dL LAB CHEMISTRY METHOD 02/24/2025 10:11 AM [facility] Creatinine 0.56(L) 0.70 - 1.30 mg/dL LAB CHEMISTRY METHOD 02/24/2025 10:11 AM [facility] eGFR 97 >=60 mL/min/1. 73m2 LAB CHEMISTRY METHOD 02/24/2025 10:11 AM [facility] Comment:Calculation based on the??Chronic Kidney Disease Epidemiology Collaboration (CKD-EPI) equation refit??without adjustment for race. BUN/Creatinine Ratio 32.1 LAB CHEMISTRY METHOD 02/24/2025 10:11 AM [facility] Calcium 8.8 8.5 - 10.5 mg/dL LAB CHEMISTRY METHOD 02/24/2025 10:11 AM [facility] AST (SGOT) 33 10 - 42 unit/L LAB CHEMISTRY METHOD 02/24/2025 10:11 AM [facility] ALT (SGPT) 55 10 - 60 unit/L LAB CHEMISTRY METHOD 02/24/2025 10:11 AM [facility] Alkaline Phosphatase 100 42 - 121 unit/L LAB CHEMISTRY METHOD 02/24/2025 10:11 AM [facility] Total Protein 5.4(L) 6.0 - 8.0 g/dL LAB CHEMISTRY METHOD 02/24/2025 10:11 AM [facility] Albumin 2.9(L) 3.2 - 5.0 g/dL LAB CHEMISTRY METHOD 02/24/2025 10:11 AM [facility] Total Bilirubin 0.7 0.0 - 1.4 mg/dL LAB CHEMISTRY METHOD 02/24/2025 10:11 AM [facility] Blood Venous blood specimen / Unknown Venipuncture / Unknown 02/24/2025 5:01 AM EDT 02/24/2025 8:10 AM EDT us Fidencio Burroughs MD LAB BLOOD ORDERABLES Final Res ult [facility] [address] [place] [address], documented in this encounter Visit Diagnoses Diagnosis Encounter for other general examination documented in this encounter Care Teams System Software Developer Relationship Specialty Start Date End Date Cj Barber DO [address] [place] [phone] PCP - General 04/21/13 documented as of this encounter
--- OUTSIDE RECORDS SUMMARY | 2025-03-14 13:12 | XMS_ITS | Clinical Summary ---
Author Organization [facility] Address [address] [address] Phone Care Team Providers Care New Client Banking Services Clerk Name Role Phone Cj Barber DO Primary Care Provider [phone] Allergies No known active allergies Medications aspirin [...] hyperlipidemia 07/24/2022 Coronary artery disease invo lving anvik coronary artery of anvik heart without angina pectoris 06/11/2022 Assessment & Plan (11/30/2024 12:28 PM EST): The patient has a history of circumflex stenting in 2003 and right coronary artery stenting in the setting of an inferior HI in 2011. He has not had overt [...] Encounters Date Type Department Care Team Description 03/07/2025 Lab Requisition [facility] - Main Lab [address] [place] [address] Fidencio Burroughs MD Encounter for other general examination 03/01/2025 Lab Requisition [facility] Lab [address] [place] [address] Fidencio Burroughs MD Encounter for other general examination 03/01/2025 Lab Requisition [facility] Lab [address] [place] [address] Fidencio Burroughs MD Encounter for other general examination 02/26/2025 Lab Requisition [facility] Lab [address] [place] [address] Fidencio Burroughs MD Encounter for other general examination 02/25/2025 Lab Requisition [facility] Lab [address] [place] [address] Fidencio Burroughs MD Hematuria, unspecified 02/24/2025 Lab Requisition [facility] Lab [address] [place] [address] Fidencio Burroughs MD Encounter for other general examination 02/19/2025 Lab Requisition [facility] Lab [address] [place] [address] Fidencio Burroughs MD Encounter for other general examination 02/15/2025 Telephone [facility] Cardiology [address] [place] [address] Mg Candelario MD 02/10/[address] [place] [address] Mg Candelario MD FYI 01/25/2025 Lab Requisition [facility] Lab [address] [place] [address] Fidencio Burroughs MD Encounter for other general examination 01/19/2025 Lab Requisition [facility] Lab [address] [place] [address] Fidencio Burroughs MD Encounter for other general examination 01/17/2025 Lab Requisition [facility] - Main Lab [address] [place] [phone] Fidencio Burroughs MD Encounter for other general examination 01/15/2025 Lab Requisition [facility] - Main Lab [address] [place] [phone] Fidencio Burroughs MD Encounter for other general examination 01/03/2025 Telephone [place] [address] [place] [phone] Mg Candelario MD Results 12/30/[address] [place] [phone] Mg Candelario MD Leg Swelling (/) 12/23/2024 Telephone [place] [address] [place] [phone] Mg Candelario MD OTHER 12/17/2024 Lab Requisition [facility] Main Lab [address] [place] [phone] Horace Gu MD Urinary tract infection, site not specified 12/16/2024 Telephone [place] [address] [place] [phone] Mg Candelario MD Foot Swelling (And leg); Increased Edema from Last 3 Months Social History Tobacco [...] 11/30/2024 11:07 AM EST Plan of Treatment Health Maintenance Due Date Last Done Comments DTaP,Tdap,and Td Vaccines (1 - Tdap) 1959 Zoster Vaccines (1 of 2) 1989 RSV Immunization Adult Patients (1 - 1-dose 75+ series) 2014 Pneumococcal Vaccine: 50+ Years (2 of 2 - PPSV23) 04/23/2018 04/23/2017 Cholesterol Screening (Lipid Panel) 11/07/2022 Depression Screening 11/07/2022 Falls Risk Assessment 11/07/2022 Medicare Annual Wellness Visit 11/07/2022 Social Influencers of Health Screening 11/07/2022 COVID-19 Vaccine ( season) 2024 11/23/2021, 01/29/2021, 01/08/2021 Hypertension/CHF/CAD Annual BMP Blood Test 03/07/2026 03/07/2025, 03/01/2025, 02/26/2025, Additional history exists Influenza Vaccine Completed 11/16/2024 HIB Vaccines Aged [...] age to complete this topic Meningococcal B Vaccine Aged Out No l onger eligible based on patient's age to complete this topic RSV Immunization Patients Under 20 months Aged Out No longer eligible based on patient's age to complete this topic Varicella Vaccines Aged Out No longer eligible based on patient's age to complete this topic Procedures Procedure Name Priority Date/Time Associated Diagnosis Comments COMPLETE BLOOD COUNT Routine 03/07/2025 5:15 AM EDT Encounter for other general examination COMPREHENSIVE METABOLIC PANEL Routine 03/07/2025 5:15 AM EDT Encounter for other general examination CBC WITH AUTO DIFFERENTIAL Routine 03/01/2025 5:29 AM EDT Encounter for other general examination CBC AND DIFFERENTIAL Routine 03/01/2025 5:29 AM EDT Encounter for other general examination COMPREHENSIVE METABOLIC PANEL Routine 03/01/2025 5:29 AM EDT Encounter for other general examination CULTURE FUNGAL, OTHER Routine 03/01/2025 5:22 AM EDT Encounter for other general examination CULTURE WOUND WITH GRAM STAIN Routine 03/01/2025 5:22 AM EDT Encounter for other general examination CBC WITH AUTO DIFFERENTIAL Routine 02/26/2025 6:35 AM EDT Encounter for other general examination CBC AND DIFFERENTIAL Routine 02/26/2025 6:35 AM EDT Encounter for other general examination COMPREHENSIVE METABOLIC PANEL Routine 02/26/2025 6:35 AM EDT Encounter for other general examination URINALYSIS WITH REFLEX MICROSCOPIC AND CULTURE Routine 02/24/2025 6:00 PM EDT Hematuria, unspecified [facility]KE[facility] URINE CULTURE TUBE Routine 02/24/2025 6:00 PM EDT Hematuria, unspecified URINALYSIS WITH REFLEX MICROSCOPIC AND CULTURE Routine 02/24/2025 6:00 PM EDT Hematuria, unspecified CULTURE URINE Routine 02/24/2025 6:00 PM EDT Hematuria, unspecified COMPLETE BLOOD COUNT Routine 02/24/2025 5:01 AM EDT Encounter for other general examination COMPREHENSIVE METABOLIC PANEL Routine 02/24/2025 5:01 AM EDT Encounter for other general examination CBC WITH AUTO DIFFERENTIAL Routine 02/19/2025 5:42 AM EDT Encounter for other general examination MAGNESIUM Routine 02/19/2025 5:42 AM EDT Encounter for other general examination CBC AND DIFFERENTIAL Routine 02/19/2025 5:42 AM EDT Encounter for other general examination COMPREHENSIVE METABOLIC PANEL Routine 02/19/2025 5:42 AM EDT Encounter for other general examination COMPLETE BLOOD COUNT Routine 01/25/2025 7:02 AM [...] EST Urinary tract infection, site not specified from Last 3 Months Results * (ABNORMAL) Complete blood count (03/07/2025 5:15 AM EDT) Only the most recent of4 resultswithin the time period is included. WBC 7.3 4.8 - 10.8 K/mcL LAB [facility] RBC 3.70(L) 4.50 - 5.50 M/mcL LAB HEMETOLOGY METHOD 03/07/2025 1:[address] [facility] Hemoglobin 11.5(L) 13.5 - 17.5 g/dL LAB HEMETOLOGY METHOD 03/07[facility]2025 [facility] Hematocrit 34.9(L) 42.0 - 54.0 % LAB HEMETOLOGY METHOD 03/07/2025 [facility] MCV 93.8 79.0 - 98.0 FL LAB HEMETOLOGY METHOD 03/07/2025 1:[address] [facility] MCH 30.9 27.0 - 32.0 pcg LAB HEMETOLOGY METHOD 03/07[facility]2025 [facility] MCHC 33.0 32.0 - 37.0 g/dL LAB HEMETOLOGY METHOD 03/07/2025 1:40 PM [facility] RDW 14.7 11.0 - 15.0 % LAB HEMETOLOGY METHOD 03/07/2025 [facility] Platelets 03/07/2025 1:[address] [facility] Comment:Not measured. Unable to quantitate due to platelet clumping MPV 9.2 7.0 - 11.0 FL LAB HEMETOLOGY METHOD 03/07/2025 1:[address] [facility] NRBC 0.0 <1.0 % LAB HEMETOLOGY METHOD 03/07/2025 1:[address] [facility] NRBC Absolute 0.00 <0.10 K/mcL LAB HEMETOLOGY METHOD 03/07/2025 1:[address] [facility] Blood Venous blood specimen / Unknown Venipuncture / Unknown 03/07/2025 5:15 AM EDT 03/07/2025 10:19 AM EDT us Fidencio Burroughs MD LAB BLOOD ORDERABLES Final Res ult [facility] [address] [place] [address], [place] [phone] * (ABNORMAL) Comprehensive metabolic panel (03/07/2025 5:15 AM EDT) Only the most recent of8 resultswithin the time period is included. Sodium 137 133 - 145 mmol/L LAB CHEMISTRY METHOD 03/07/2025 12:39 PM [facility] Potassium 3.8 3.5 - 5.5 mmol/L LAB CHEMISTRY METHOD 03/07/2025 12:39 PM [facility] Chloride 101 96 - 110 mmol/L LAB CHEMISTRY METHOD 03/07/2025 12:39 PM [facility] CO2 32 21 - 32 mmol/L LAB CHEMISTRY METHOD 03/07/2025 12:39 PM [facility] Anion Gap 4 3 - 11 LAB CHEMISTRY METHOD 03/07/2025 12:[address] [facility] Glucose 77 70 - 100 mg/dL LAB CHEMISTRY METHOD 03/07/2025 12:39 PM [facility] BUN 14 5 - 25 mg/dL LAB CHEMISTRY METHOD 03/07/2025 12:39 PM [facility] Creatinine 0.51(L) 0.70 - 1.30 mg/dL LAB CHEMISTRY METHOD 03/07/2025 12:39 PM [facility] eGFR 99 >=60 mL/min/1. 73m2 LAB CHEMISTRY METHOD 03/07/2025 12:39 PM [facility] Comment:Calculation based on the??Chronic Kidney Disease Epidemiology Collaboration (CKD-EPI) equation refit??without adjustment for race. BUN/Creatinine Ratio 27.5 LAB CHEMISTRY METHOD 03/07/2025 12:39 PM [facility] Calcium 8.6 8.5 - 10.5 mg/dL LAB CHEMISTRY METHOD 03/07/2025 12:39 PM [facility] AST (SGOT) 32 10 - 42 unit/L LAB CHEMISTRY METHOD 03/07/2025 12:39 PM [facility] ALT (SGPT) 48 10 - 60 unit/L LAB CHEMISTRY METHOD 03/07/2025 12:39 PM [facility] Alkaline Phosphatase 116 42 - 121 unit/L LAB CHEMISTRY METHOD 03/07/2025 12:39 PM [facility] Total Protein 5.3(L) 6.0 - 8.0 g/dL LAB CHEMISTRY METHOD 03/07/2025 12:39 PM [facility] Albumin 2.8(L) 3.2 - 5.0 g/dL LAB CHEMISTRY METHOD 03/07/2025 12:39 PM [facility] Total Bilirubin 1.0 0.0 - 1.4 mg/dL LAB CHEMISTRY METHOD 03/07/2025 12:39 PM [facility] Blood Venous blood specimen / Unknown Venipuncture / Unknown 03/07/2025 5:15 AM EDT 03/07/2025 10:19 AM EDT us Fidencio Burroughs MD LAB BLOOD ORDERABLES Final Res ult [facility] [address] [place] [address], * (ABNORMAL) CBC auto differential (03/01/2025 5:29 AM EDT) Only the most recent of4 resultswithin the time period is included. WBC 8.8 4.8 - 10.8 K/mcL LAB HEMETOLOGY METHOD 03/01/2025 11:[address] [facility] RBC 3.60(L) 4.50 - 5.50 M/mcL LAB HEMETOLOGY METHOD 03/01[facility]2025 11[facility] Hemoglobin 11.0(L) 13.5 - 17.5 g/dL LAB HEMETOLOGY METHOD 03/01/2025 11:58 [facility] Hematocrit 33.0(L) 42.0 - 54.0 % LAB HEMETOLOGY METHOD 03/01/2025 11:58 AM [facility] MCV 91.2 79.0 - 98.0 FL LAB HEMETOLOGY METHOD 03/01/2025 11:[address] [facility] MCH 30.4 27.0 - 32.0 pcg LAB HEMETOLOGY METHOD 03/01/2025 11:[facility] MCHC 33.3 32.0 - 37.0 g/dL LAB HEMETOLOGY METHOD 03/01/2025 11:58 AM [facility] RDW 13.9 11.0 - 15.0 % LAB HEMETOLOGY METHOD 03/01/2025 11:58 AM [facility] Platelets 03/01/2025 11:58 AM [facility] Comment:Not measured. Unable to quantitate due to platelet clumping MPV 10.2 7.0 - 11.0 FL LAB HEMETOLOGY METHOD 03/01/2025 11:58 AM [facility] NRBC 0.0 <1.0 % LAB HEMETOLOGY METHOD 03/01/2025 11:58 AM [facility] NRBC Absolute 0.00 <0.10 K/mcL LAB HEMETOLOGY METHOD 03/01/2025 11:58 AM [facility] Neutrophils Relative 76.0 % LAB HEMETOLOGY METHOD 03/01/2025 11:58 AM [facility] Lymphocytes Relative 13.4 % LAB HEMETOLOGY METHOD 03/01/2025 11:58 AM [facility] Monocytes Relative 9.0 % LAB HEMETOLOGY METHOD 03/01/2025 11:58 AM [facility] Eosinophils Relative 1.1 % LAB HEMETOLOGY METHOD 03/01/2025 11:58 AM [facility] Basophils Relative 0.2 % LAB HEMETOLOGY METHOD 03/01/2025 11:58 AM [facility] Immature Granulocytes Relative 0.3 % LAB HEMETOLOGY METHOD 03/01/2025 11:58 AM [facility] Neutrophils Absolute 6.69 1.50 - 7.00 K/mcL LAB HEMETOLOGY METHOD 03/01/2025 11:58 AM [facility] Lymphocytes Absolute 1.18 1.00 - 5.00 K/mcL LAB HEMETOLOGY METHOD 03/01/2025 11:58 AM [facility] Monocytes Absolute 0.79 0.20 - 1.00 K/mcL LAB HEMETOLOGY METHOD 03/01/2025 11:[address] [facility] Eosinophils Absolute 0.10 0.00 - 0.50 K/mcL LAB HEMETOLOGY METHOD 03/01/2025 11:[address] [facility] Basophils Absolute 0.02 0.00 - 0.20 K/mcL LAB HEMETOLOGY METHOD 03/01/2025 11:[address] [facility] Immature Granulocytes Absolute 0.03 0.00 - 0.03 K/mcL LAB HEMETOLOGY METHOD 03/01/2025 11:[address] [facility] Blood Venous blood specimen / Unknown Venipuncture / Unknown 03/01/2025 5:29 AM EDT 03/01/2025 9:52 AM EDT us Fidencio Burroughs MD LAB BLOOD ORDERABLES Final Res ult [facility] [address] [place] [address], * (ABNORMAL) Culture wound with gram stain (03/01/2025 5:22 AM EDT) Culture, Wound Proteus mirabilis(A) BAUDILIO 03/09/2025 9:[address] [facility] Comment: The organism value for this result has been updated. These results have been appended to the previously preliminary verified report. This is an edited result. Previous organism was Gram negative bacilli on 03/02/2025 at 1315 EDT. Edited result: Previously reported as Proteus species on 03/03/2025 at 1152 EDT. Culture, Wound Enterococcus faecalis(A) BAUDILIO 03/09/2025 9:[address] [facility] Comment: The organism value for this result has been updated. These results have been appended to the previously preliminary verified report. This is an edited result. Previous organism was Streptococcus Gamma non hemolytic on 03/06/2025 at 0911 EDT. Culture, Wound Pseudomonas aeruginosa(A) BAUDILIO 03/09/2025 9:[address] [facility] Comment: The organism value for this result has been updated. These results have been appended to the previously preliminary verified report. This is an edited result. Previous organism was Gram negative bacilli on 03/07/2025 at 1012 EDT. Gram Stain Result Moderate Polymorphonuclear leukocytes 03/09/2025 9:[address] [facility] Gram Stain Result Few Epithelial cells 03/09/2025 9:[address] [facility] Gram Stain Result No organisms seen 03/09/2025 9:[address] [facility] Swab Penile structure / Unknown 03/01/2025 [...] BAUDILIO 2 ug/ml: Susceptible Enterococcus faecalis Vancomycin BAUDILIO 1 ug/ml: Susceptible Pseudomonas aeruginosa Piperacillin/Tazobactam BAUDILIO 8 ug/ml: Susceptible Pseudomonas aeruginosa Ceftazidime BAUDILIO 2 ug/ml: Susceptible Pseudomonas aeruginosa Meropenem BAUDILIO 0.5 ug/ml: Susceptible Pseudomonas aeruginosa Ciprofloxacin BAUDILIO 0.12 ug/ml: Susceptible Pseudomonas aeruginosa Levofloxacin BAUDILIO 0.5 ug/ml: Susceptible Pseudomonas aeruginosa Cefepime DISK DIFFUSION Susceptible Fidencio Burroughs MD LAB MICROBIOLOGY - GENERAL ORD ERABLES Final Result Performing Organization Address [facility]/ZIP Co de Phone Number [facility] [address] [place] [address], [place] [phone] * (ABNORMAL) Culture fungal, other (03/01/2025 5:22 AM EDT) [facility] Culture, Fungus Lucrecia albicans/du bliniensis( A) 03/07/2025 12:[address] [facility] Comment: Edited result: Previously reported as Yeast on 03/07/2025 at 1047 EDT. Swab Penile structure / Unknown 03/01/2025 5:22 AM EDT 03/01/2025 10:41 AM EDT Fidencio Burroughs MD LAB MICROBIOLOGY - GENERAL ORD ERABLES Final Result Performing Organization Address [facility] de Phone Number [facility] [address] [place] [address], [place] [phone] * (ABNORMAL) Urinalysis with reflex microscopic and culture (02/24/2025 6:00 PM EDT) Only the most recent of2 resultswithin the time period is included. Specific [place] Urine 1.023 1.003 - 1.030 LAB URINALYSIS - AUTOMATED METHOD 02/25/2025 12:[address] [facility] pH, Urine 6.0 5.0 - 8.0 pH LAB URINALYSIS - AUTOMATED METHOD 02/25/2025 12:[address] [facility] Leukocytes, Urine Large(A) Negative LAB URINALYSIS - AUTOMATED METHOD 02/25/2025 12:09 PM [facility] Nitrite, Urine Negative Negative LAB URINALYSIS - AUTOMATED METHOD 02/25/2025 12:09 PM [facility] Protein, Urine 30(A) <=Trace mg/dL LAB URINALYSIS - AUTOMATED METHOD 02/25/2025 12:09 PM [facility] Glucose, Urine Negative Negative mg/dL LAB URINALYSIS - AUTOMATED METHOD 02/25/2025 12:09 PM [facility] Ketones, Urine Negative Negative mg/dL LAB URINALYSIS - AUTOMATED METHOD 02/25/2025 12:09 PM [facility] Urobilinogen , Urine 1.0 0.2 - 1.0 mg/dL LAB URINALYSIS - AUTOMATED METHOD 02/25/2025 12:09 PM [facility] Bilirubin, Urine Negative Negative LAB URINALYSIS - AUTOMATED METHOD 02/25/2025 12:09 PM [facility] Blood, Urine Large(A) Negative LAB URINALYSIS - AUTOMATED METHOD 02/25/2025 12:09 PM [facility] RBC, Urine 90.1(H) 0 - 4 /HPF LAB URINALYSIS - AUTOMATED METHOD 02/25/2025 12:09 PM [facility] WBC, Urine 251.6(H) 0 - 4 /HPF LAB URINALYSIS - AUTOMATED METHOD 02/25/2025 12:09 PM [facility] Squamous Epithelial, Urine 3 0 - 60 /LPF LAB URINALYSIS - AUTOMATED METHOD 02/25/2025 12:09 PM [facility] Bacteria, Urine Negative Negative /HPF LAB URINALYSIS - AUTOMATED METHOD 02/25/2025 12:09 PM [facility] Hyaline Casts, Urine 2.4 0 - 3 /LPF LAB URINALYSIS - AUTOMATED METHOD 02/25/2025 12:[address] [facility] Yeast, Urine Present(A) None /HPF LAB URINALYSIS - AUTOMATED METHOD 02/25/2025 12:[address] [facility] Urine Indwelling urinary catheter / Unknown 02/24/2025 6:00 PM EDT 02/25/2025 11:30 AM EDT Fidencio Burroughs MD LAB URINE ORDERABLES Final Res ult Performing Organization Address City/[facility]/ZIP Co de Phone Number [facility] [address] [place] [address], [place] [phone] * [place] urine culture tube (02/24/2025 6:00 PM EDT) Only the most recent of2 resultswithin the time period is included. Extra Tube Hold for add-ons. 02/25/2025 1:[address] [facility] Comment:Auto resulted. Urine Indwelling urinary catheter / Unknown 02/24/2025 6:00 PM EDT 02/25/2025 11:30 AM EDT us Fidencio Burroughs MD LAB URINE ORDERABLES Final Res ult Performing Organization Address [facility]/ZIP Co de Phone Number [facility] [address] [place] [address], [place] [phone] * (ABNORMAL) Culture urine (02/24/2025 6:00 PM EDT) Only the most recent of3 resultswithin the time period is included. Culture, Urine 10,000-49,0 00 CFU/mL Lucrecia albicans/du bliniensis( A) 02/27/2025 12:[address] [facility] Comment: Edited result: Previously reported as Yeast on 02/26/2025 at 1030 EDT. Urine Indwelling urinary catheter / Unknown 02/24/2025 6:00 PM EDT 02/25/2025 12:09 PM EDT Fidencio Burroughs MD LAB MICROBIOLOGY - GENERAL ORD ERABLES Final Result Performing Organization Address [facility]/ZIP Co de Phone Number [facility] [address] [place] [address], [place] [phone] * Magnesium (02/19/2025 5:42 AM EDT) Only the most recent of2 resultswithin the time period is included. Magnesium 2.4 1.9 - 2.6 mg/dL LAB CHEMISTRY METHOD 02/19/2025 12:[address] [facility] Blood Venous blood specimen / Unknown Venipuncture / Unknown 02/19/2025 5:42 AM EDT 02/19/2025 9:50 AM EDT Fidencio Burroughs MD LAB BLOOD ORDERABLES Final Res ult Performing Organization Address City/[facility]/ZIP Co de Phone Number [facility] [address] [place] [address], [place] [phone] from Last 3 Months Insurance [employer] Care Teams New Client Banking Services Clerk Relationship Specialty Start Date End Date Cj Barber DO [address] [place] [phone] [facility] - General 04/21/13
--- OUTSIDE RECORDS SUMMARY | 2025-03-14 13:12 | XMS_ITS | Encounter Summary ---
Author Organization [facility] Address [address] [place] [address] Care Team Providers Care Field Service Coordinator Name Role Phone Cj Barber DO Primary Care Provider [phone] Encounter Details Date Type Department Care Team (Late st Contact Info) Description 03/07/2025 Lab Requisition [facility] - Main Lab [address] [facility] [place] [address] Fidencio Burroughs MD [address] [place] [id number] Encounter for other general examination Social History [...] encounter Results * (ABNORMAL) Complete blood count (03/07/2025 5:15 AM EDT) WBC 7.3 4.8 - 10.8 K/mcL LAB HEMETOLOGY METHOD 03/07/2025 1:[address] [facility] RBC 3.70(L) 4.50 - 5.50 M/mcL LAB HEMETOLOGY METHOD 03/07/2025 1:[address] [facility] Hemoglobin 11.5(L) 13.5 - 17.5 g/dL LAB HEMETOLOGY METHOD 03/07/2025 1:[address] [facility] Hematocrit 34.9(L) 42.0 - 54.0 % LAB HEMETOLOGY METHOD 03/07/2025 1:[address] [facility] MCV 93.8 79.0 - 98.0 FL LAB HEMETOLOGY METHOD 03/07/2025 1:[address] [facility] MCH 30.9 27.0 - 32.0 pcg LAB HEMETOLOGY METHOD 03/07/2025 1:[address] [facility] MCHC 33.0 32.0 - 37.0 g/dL LAB HEMETOLOGY METHOD 03/07/2025 1:[address] [facility] RDW 14.7 11.0 - 15.0 % LAB HEMETOLOGY METHOD 03/07/2025 1:[address] [facility] Platelets 03/07/2025 1:[address] [facility] Comment:Not measured. Unable to quantitate due to platelet clumping MPV 9.2 7.0 - 11.0 FL LAB HEMETOLOGY METHOD 03/07/2025 1:[address] [facility] NRBC 0.0 <1.0 % LAB HEMETOLOGY METHOD 03/07/2025 1:[address] [facility] NRBC Absolute 0.00 <0.10 K/mcL LAB HEMETOLOGY METHOD 03/07/2025 1:[address] [facility] Blood Venous blood specimen / Unknown Venipuncture / Unknown 03/07/2025 5:15 AM EDT 03/07/2025 10:19 AM EDT Fidencio Burroughs MD LAB BLOOD ORDERABLES Final Res ult [facility] [address] [place] [address], * (ABNORMAL) Comprehensive metabolic panel (03/07/2025 5:15 AM EDT) Sodium 137 133 - 145 mmol/L LAB CHEMISTRY METHOD 03/07/2025 12:[address] [facility] Potassium 3.8 3.5 - 5.5 mmol/L LAB CHEMISTRY METHOD 03/07/2025 12:[address] [facility] Chloride 101 96 - 110 mmol/L LAB CHEMISTRY METHOD 03/07/2025 12:[address] [facility] CO2 32 21 - 32 mmol/L LAB CHEMISTRY METHOD 03/07/2025 12:[address] [facility] Anion Gap 4 3 - 11 LAB CHEMISTRY METHOD 03/07/2025 12:[address] [facility] Glucose 77 70 - 100 mg/dL LAB CHEMISTRY METHOD 03/07/2025 12:[address] [facility] BUN 14 5 - 25 mg/dL LAB CHEMISTRY METHOD 03/07/2025 12:[address] [facility] Creatinine 0.51(L) 0.70 - 1.30 mg/dL LAB CHEMISTRY METHOD 03/07/2025 12:[address] [facility] eGFR 99 >=60 mL/min/1. 73m2 LAB CHEMISTRY METHOD 03/07/2025 12:[address] [facility] Comment:Calculation based on the??Chronic Kidney Disease Epidemiology Collaboration (CKD-EPI) equation refit??without adjustment for race. BUN/Creatinine Ratio 27.5 LAB CHEMISTRY METHOD 03/07/2025 12:[address] [facility] Calcium 8.6 8.5 - 10.5 mg/dL LAB CHEMISTRY METHOD 03/07/2025 12:[address] [facility] AST (SGOT) 32 10 - 42 unit/L LAB CHEMISTRY METHOD 03/07/2025 12:[address] [facility] ALT (SGPT) 48 10 - 60 unit/L LAB CHEMISTRY METHOD 03/07/2025 12:[address] [facility] Alkaline Phosphatase 116 42 - 121 unit/L LAB CHEMISTRY METHOD 03/07/2025 12:[address] [facility] Total Protein 5.3(L) 6.0 - 8.0 g/dL LAB CHEMISTRY METHOD 03/07/2025 12:[address] [facility] Albumin 2.8(L) 3.2 - 5.0 g/dL LAB CHEMISTRY METHOD 03/07/2025 12:[address] [facility] Total Bilirubin 1.0 0.0 - 1.4 mg/dL LAB CHEMISTRY METHOD 03/07/2025 12:[address] [facility] Blood Venous blood specimen / Unknown Venipuncture / Unknown 03/07/2025 5:15 AM EDT 03/07/2025 10:19 AM EDT us Fidencio Burroughs MD LAB BLOOD ORDERABLES Final Res ult [facility] [address] [place] [address], documented in this encounter Visit Diagnoses Diagnosis Encounter for other general examination documented in this encounter Care Teams Field Service Coordinator Relationship Specialty Start Date End Date Cj Barber DO [address] [place] [phone] PCP - General 04/21/13 documented as of this encounter
--- OUTSIDE RECORDS SUMMARY | 2025-03-14 13:12 | XMS_ITS | Encounter Summary ---
Author Organization [facility] Address [address] [place] [address] Care Team Providers Care Laborer [employer] Name Role Phone Cj Barber DO Primary Care Provider [phone] Encounter Details Date Type Department Care Team (Late st Contact Info) Description 01/25/2025 Lab Requisition [facility] - Main Lab [address] [facility] [place] [address] Fidencio Burroughs MD [address] [place] [phone] Encounter for other general examination Social History [...] AM EST) WBC 7.8 4.8 - 10.8 /[facility] LAB HEMETOLOGY METHOD 01/25/2025 11:36 AM [facility] RBC 4.50 4.50 - 5.50 M/mcL LAB HEMETOLOGY METHOD 01/25/2025 11:36 AM [facility] Hemoglobin 13.7 13.5 - 17.5 g/dL LAB HEMETOLOGY METHOD 01/25/2025 11:36 AM [facility] Hematocrit 41.6(L) 42.0 - 54.0 % LAB HEMETOLOGY METHOD 01/25/2025 11:36 AM [facility] MCV 93.3 79.0 - 98.0 FL LAB HEMETOLOGY METHOD 01/25/2025 11:36 AM [facility] MCH 30.7 27.0 - 32.0 pcg LAB HEMETOLOGY METHOD 01/25/2025 11:36 AM [facility] MCHC 32.9 32.0 - 37.0 g/dL LAB HEMETOLOGY METHOD 01/25/2025 11:36 AM [facility] RDW 12.9 11.0 - 15.0 % LAB HEMETOLOGY METHOD 01/25/2025 11:36 AM [facility] Platelets 01/25/2025 11:36 AM [facility] Comment:Not measured. Platel ets appear adequate but clumped MPV 11.1(H) 7.0 - 11.0 FL LAB HEMETOLOGY METHOD 01/25/2025 11:36 AM [facility] NRBC 0.0 <1.0 % LAB HEMETOLOGY METHOD 01/25/2025 11:36 AM [facility] NRBC Absolute 0.00 <0.10 K/mcL LAB HEMETOLOGY METHOD 01/25/2025 11:36 AM [facility] Blood Venous blood specimen / Unknown Venipuncture / Unknown 01/25/2025 7:02 AM EST 01/25/2025 10:36 AM EST us Fidencio Burroughs MD LAB BLOOD ORDERABLES Final Res ult [facility] [address] [place] [address], [place] [phone] * (ABNORMAL) Comprehensive metabolic panel (01/25/2025 7:02 AM EST) Sodium 137 133 - 145 mmol/L LAB CHEMISTRY METHOD 01/25/2025 11:50 AM EST [facility] Potassium 3.9 3.5 - 5.5 mmol/L LAB CHEMISTRY METHOD 01/25/2025 11:50 AM [facility] Chloride 101 96 - 110 mmol/L LAB CHEMISTRY METHOD 01/25/2025 11:50 AM [facility] CO2 27 21 - 32 mmol/L LAB CHEMISTRY METHOD 01/25/2025 11:50 AM [facility] Anion Gap 9 3 - 11 LAB CHEMISTRY METHOD 01/25/2025 11:50 AM [facility] Glucose 87 70 - 100 mg/dL LAB CHEMISTRY METHOD 01/25/2025 11:50 AM [facility] BUN 10 5 - 25 mg/dL LAB CHEMISTRY METHOD 01/25/2025 11:50 AM [facility] Creatinine 0.50(L) 0.70 - 1.30 mg/dL LAB CHEMISTRY METHOD 01/25/2025 11:50 AM [facility] eGFR 100 >=60 mL/min/1. 73m2 LAB CHEMISTRY METHOD 01/25/2025 11:50 AM [facility] LAB Comment:Calculation based on the??Chronic Kidney Disease Epidemiology Collaboration (CKD-EPI) equation refit??without adjustment for race. BUN/Creatinine Ratio 20.0 LAB CHEMISTRY METHOD 01/25/2025 11:50 AM [facility] Calcium 9.1 8.5 - 10.5 mg/dL LAB CHEMISTRY METHOD 01/25/2025 11:50 AM [facility] AST (SGOT) 28 10 - 42 unit/L LAB CHEMISTRY METHOD 01/25/2025 11:50 AM [facility] ALT (SGPT) 38 10 - 60 unit/L LAB CHEMISTRY METHOD 01/25/2025 11:50 AM [facility] Alkaline Phosphatase 127(H) 42 - 121 unit/L LAB CHEMISTRY METHOD 01/25/2025 11:50 AM [facility] Total Protein 6.1 6.0 - 8.0 g/dL LAB CHEMISTRY METHOD 01/25/2025 11:50 AM [facility] Albumin 3.1(L) 3.2 - 5.0 g/dL LAB CHEMISTRY METHOD 01/25/2025 11:50 AM [facility] Total Bilirubin 0.7 0.0 - 1.4 mg/dL LAB CHEMISTRY METHOD 01/25/2025 11:50 AM [facility] Blood Venous blood specimen / Unknown Venipuncture / Unknown 01/25/2025 7:02 AM EST 01/25/2025 10:36 AM EST us Fidencio Burroughs MD LAB BLOOD ORDERABLES Final Res ult [facility] [address] [place] [address], documented in this encounter Visit Diagnoses Diagnosis Encounter for other general examination documented in this encounter Care Teams Laborer [employer] Relationship Specialty Start Date End Date Cj Barber DO [address] [place] [phone] PCP - General 04/21/13 documented as of this encounter
--- NOTE | 2025-03-14 13:17 | MHC.PC.OV ---
Vital Signs 03/14/25 13:20 Height 5 ft 4 in Weight 154 lb BMI 26.4 BP 114/60 Respiration 18 Pulse 66 Pulse Source Pulse Oximeter Temp 98.0 F Temp Source Temporal Artery Scan Pulse Oximetry (%) 99 Oxygen Delivery Method Room Air Intake Visit Reasons: Anticoagulation tx Intake Note: Visit Reason: TCM Intake Note: Patient is here for hospital discharge follow up. Patient was discharged from Outcomes Manager Required: No Armature Tester: Not Required per policy Accompanied by: Spouse Allergies No Known Allergies [No Known Allergies*] Allergy (Verified 03/14/25 13:38) Medication List - Last Reconciled 03/14/25 by Haritha Ni PA-C amoxicillin-pot clavulanate 875-125 mg 1 tab PO BID 7 days ascorbic acid (vitamin C) 500 mg PO DAILY aspirin 81 mg PO DAILY atorvastatin 80 mg PO BEDTIME clopidogrel (Plavix) 75 mg PO DAILY clotrimazole 1% 1 appl topical BID docusate sodium (Colace) 100 mg PO BID furosemide 20 mg PO DAILY melatonin 6 mg PO BEDTIME multivitamin with minerals 1 tab PO DAILY nitroglycerin 0.4 mg sublingual Q5M PRN omeprazole 40 mg PO BID@0630,1630 polyethylene glycol 3350 (Miralax) 17 grams PO DAILY sennosides (Senna Lax) 8.6 mg PO DAILY timolol maleate 0.5% 1 drp ophthalmic (eye) DAILY trazodone 25 mg PO BEDTIME PRN warfarin take as directed by provider nightly orally daily; Tobacco use date assessed: 03/14/25 Fall risk assessment: No Falls in past year Last assessed Fall Risk: 03/14/25 Dental Screening Dental Screen Date: 03/14/25 Did you have a dental visit in the last 12 months?: No Did you have a dental problem in the last 6 months where you did not have access to dental care?: No HPI HPI Comments History of Present Illness Details Patient presents to the office for a TCM/hospital discharge follow-up visit. Patient was admitted at [facility] on 02/09/2025 and then discharged/transferred to [facility] on 02/14/2025 for further evaluation and treatment. Patient was admitted at [facility] from 02/14/2025 until 02/18/2025. He was then sent to [facility] 02/18/2025 and then discharged from [facility]hab on 03/10/2025. HPI/ Hospital Course/Discharge Summary: This is an 84-year-old male presenting for hospital discharge follow-up at [facility] that he was discharged/transferred to [facility] then he was discharged/transferred to [facility] for rehabilitation and he was discharged from [facility] on 03/10/2025. He was treated at [place] and [facility] for new onset atrial fibrillation. He was also noted to have pulmonary embolism and bilateral lower extremity DVT suspected to be provoked in setting of recent neurosurgery. He was initially started on Lovenox then bridged to warfarin. They recommend goal INR of 2-3 with warfarin. Patient has a nurse coming to his home for INR checks. 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 He was also noted to have a UTI was started on IV Rocephin then transitioned to Augmentin completing the course on 02/20/2025. They also noted the patient having orthostatic hypotension while being on furosemide and metoprolol therefore they discontinue the metoprolol while the patient was in the hospital. They continue the furosemide. They recommend the patient follow-up with outpatient Cardiology that he already has established. They also recommend having the patient follow-up with Nephrology as needed. They also recommend following up with Urology as an outpatient due to chronic indwelling Nolan catheter with UTI with Proteus species growing which was sensitive to ceftriaxone and Augmentin. Discharged to/Current Location: Went to [facility] then discharged home on 03/10/25 Lives with: , Son age 57 Diagnosis: new onset a fib, PE, weakness due to uti Procedures performed: Patient had multiple labs, UA New medications: Patient was started on warfarin 5 mg daily Discontinued medications: Patient was discontinued off of metoprolol due to orthostatic hypotension, patient was started on melatonin for insomnia, patient was also started on trazodone for insomnia which was increased to 25 mg, they also recommended that if patient has continued to have elevated AST and ALT then they would recommend discontinuing the patient's statin although they continued the patient understand at this time Change medications/dosing: Patient had metoprolol discontinued Pending labs: Patient to have repeat INR via visiting nurse as scheduled already in place, will repeat UA as patient has sediment in urine at this time denies any other symptom Pending diagnostic test: No pending diagnostic tests are required Any Follow-up Labs required? No follow-up labs required at this time Any Follow-up Diagnostic test required? No follow-up diagnostic test required at this time How are you feeling? Feeling good, able to get out of bed by himself, use the bathroom, needs help bathing due to decreased b/l arm's ROM and hard time grasping things. Otherwise doing good at home with family support at this time. Are you in any pain or discomfort? Not in pain Do you have any questions about your condition or discharge instructions? Not at this time Were you able to get your medications filled? yes medications filled. Do you have any questions about your medications? Not at this time. Any referrals required? None at this time. Were you able to schedule your follow-up appointment? Patient will call cardiology at [facility] for follow up appointment. Patient will call urologist for follow-up appointment. If home health was ordered, have they contact you? Not ordered. Any outpatient services, if so, are you scheduled? Yes PT/OT, VNA for INR checks Are there any additional resources like transportation you might need during her recovery? - VNA? Not at this time but has Nurse who check INR. - PROFESSOR OF BIOCHEMISTRY? not in place and pt is interested due to limited rom of b.l arm's making it difficulty for bathing, dressing, feeding, etc - Meals on wheels? Not interested Educational need/resources: Not at this time What support system do you have? , PT, OT Social History - Lives with and 57-year-old son. - Requires assistance for bathing due to limited range of motion in arms. - Receives Mom's Meals for nutritional support. - Has a visiting nurse checking INR. 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 Mother No problems noted. Social History Household Members: Spouse and Children Housing: House Do you presently have visiting nurse or other home services: Yes Unable to assess alcohol history related to: Unknown Alcohol intake: current Alcohol intake frequency: does not drink Patient Tobacco Use Status: Former Tobacco user service: No Current occupational status: retired Cognitive needs: Yes (walker) Hearing needs: Yes (b/l hearing aids) Vision needs: Yes (rx glasses) Questionnaire PHQ-9 Over the last 2 weeks, how often have you been bothered by any of the following problems? 1. Little interest or pleasure in doing things: not at all 2. Feeling down, depressed, or hopeless: not at all 3. Trouble falling or staying asleep, or sleeping too much: not at all 4. Feeling tired or having little energy: not at all 5. Poor appetite or overeating: not at all 6. Feeling bad about yourself - or that you are a failure or have let yourself or your family down: not at all 7. Trouble concentrating on things, such as reading the newspaper or watching television: not at all 8. Moving or speaking so slowly that other people could have noticed. Or the opposite - being so fidgety or restless that you have been moving around a lot more than usual: not at all 9. Thoughts that you would be better off or of hurting yourself in some way: not at all Total score: 0 Depression Screening Interpretation: Negative Depression Screening Done: Yes 71668 - PHQ-9 Billing: Yes Source: Developed by Drs. Cj Barbosa, Trang Crowley, Ravi Thakur and colleagues, with an educational cortez from [employer]. Thrive Questionnaire Date Thrive assessed: 03/14/25 I am a: Patient What is your living situation today?: I have a steady place to live Within the past 12 months, did the food you bought not last and you didn't have the money to get more?: Never true Within the past 12 months, did you worry whether your food would run out before you got money to buy more?: Never true Do you have trouble paying for medicines?: No Do you have trouble getting transportation to medical appointments?: No Do you have trouble paying your heating and electricity bill?: No Do you have trouble taking care of your child, family member or friend?: No Do you have trouble with day-to-day activities such as bathing, preparing meals, shopping, managing finances, etc.?: No Are you currently unemployed and looking for a job?: No Are you interested in more education?: No Please select the resources that you would like help with: None THRIVE Score: 0 AUDIT C Alcohol Use Questionnaire (AUDIT-C) 1. How often do you have a drink containing alcohol?: Never 3. How often do you have six or more drinks on one occasion?: Never Total Score: 0 Score Reviewed/Action Taken: No DREW-7 AMB Questionnaire DREW-7 Date DREW - 7 assessed: 03/14/25 Feeling nervous, anxious, or on edge: 0 = Not at all Not being able to stop or control worryin = Not at all Worrying too much about different things: 0 = Not at all Trouble relaxin = Not at all Being so restless that it is hard to sit still: 0 = Not at all Becoming easily annoyed or irritable: 0 = Not at all Feeling afraid as if something awful might happen: 0 = Not at all Total DREW-7 score (0-4 normal; 5-9 mild; 10-14 moderate; 15-21 severe): 0 Source: Developed by Drs. Cj Barbosa, Trang Crowley, Ravi Thakur and colleagues, with an educational cortez from [employer]. DREW-7 Assessment Billing DREW-7 Assessment Tool: DREW-7 Assessment 96562 Review of Systems Const Details: - Cardiovascular: Reports atrial fibrillation diagnosis. - Genitourinary: Reports history of urinary tract infection. - Neurological: Reports a history of generalized weakness and abnormal gait. - Musculoskeletal: Reports limited range of motion in both arms impacting daily activities. - Respiratory: Reports pulmonary embolism intervention. Physical exam (Primary Care) Vital Signs: Last Vital Signs Temp 98.0 F 03/14/25 13:20 Pulse 66 03/14/25 13:20 Resp 18 03/14/25 13:20 BP 114/60 03/14/25 13:20 Pulse Ox 99 03/14/25 13:20 Oxygen Delivery Method Room Air 03/14/25 13:20 Vitals signs have been reviewed. Care Plan Goal for BP management: <130/90 at Goal BMI result Body Mass Index 26.4 BMI Assessment/Plan discussion: High BMI High, discussed plan: lifestyle, weight reduction, dietary, physical activity and alcohol moderation Tobacco/Smoking Status: Tobacco use Status Tobacco use date assessed 03/14/25 03/14/25 13:32 Patient Tobacco Use Status Former Tobacco user 03/14/25 13:32 PHQ-9: PHQ-9 Score PHQ-9: Total score 0 03/14/25 13:49 Depression Screening Interpretation: Negative Thrive Assessment: Date of Thrive Assessment Date Thrive assessed 03/14/25 03/14/25 13:32 Const Other: Appearance: Alert. Oriented X3. No acute distress. Head: Normal external exam. Normocephalic. Atraumatic. Eyes: Pupils are equal, round, and reactive to light. Extraocular movements intact. Conjunctiva and sclera normal. Eyelids normal. Throat: Pharynx normal. Uvula midline. Moist mucous membranes. Neck: Normal inspection. Neck supple. Full range of motion. Cardiovascular: Normal heart rate and rhythm. Heart sound normal. Respiratory: No respiratory distress. Painless inspiration Back: No costovertebral angle tenderness. Full range of motion noted. Skin: Skin warm and dry. Normal skin color. Normal skin turgor. No rashes/lesions/lacerations noted. Extremities: No lower extremity edema. Extremities nontender. Decreased range of motion of arms noted. Neuro: Oriented X 3. No motor deficit. No sensory deficit. Reflexes normal. Coding Level of Care Code TCM High MDM <= 7 Days Complex EM visit Add On G2211 Diagnoses Hospital discharge follow-up Z09 Acute UTI N39.0 Pulmonary embolism without acute cor pulmonale, unspecified chronicity, unspecified pulmonary embolism type I26.99 Acute cor pulmonale presence: without acute cor pulmonale Chronicity: unspecified Pulmonary embolism type: unspecified Chronic indwelling Nolan catheter Z97.8 PAF (paroxysmal atrial fibrillation) I48.0 On Coumadin for atrial fibrillation I48.91; Z79.01 DVT (deep venous thrombosis) I82.409 Additional Codes PHQ-9 - 28805 - PHQ-9 Billing: Yes ([id number]) DREW-7 Assessment Billing - DREW-7 Assessment Tool: DREW-7 Assessment 90162 ([id number]) Assessment & Plan Assessment & Plan (1) Hospital discharge follow-up: Code(s): Z09 - Encounter for follow-up examination after completed treatment for conditions other than malignant neoplasm Category: Medical Plan: Conditions have improved and stable from what the patient was admitted for at the hospital at both [facility] and [facility]. Patient is currently receiving PT and OT services. Will place VNA services for med management. Home health services for bathing as patient is having difficulty bathing and dressing himself. Patient to follow-up with cardiology he will call the record center coordinator for a follow-up appointment. Patient to follow-up with vascular surgery I placed a referral at this time. Patient to follow up with urologist to call at this time for an appointment as he already has 1 established. Patient is improving at this time. (2) Acute UTI: Code(s): N39.0 - Urinary tract infection, site not specified Category: Medical Plan: Augmentin is suggested for recurrence prevention, alongside follow-up guidance to manage fluid intake and medication adherence. Condition is acute unstable continue to monitor. (3) Pulmonary emboli: Code(s): I26.99 - Other pulmonary embolism without acute cor pulmonale Category: Medical Qualifiers: Acute cor pulmonale presence: without acute cor pulmonale Chronicity: unspecified Pulmonary embolism type: unspecified Qualified Code(s): I26.99 - Other pulmonary embolism without acute cor pulmonale Plan: Post identification, treatment included anticoagulation. Continual INR monitoring and vascular follow-up are annexed for complications avoidance. Condition is chronic and stable continue to monitor. (4) Chronic indwelling Nolan catheter: Code(s): Z97.8 - Presence of other specified devices Category: Medical Plan: Patient most likely UTI at this time. Will start on Augmentin. Patient to follow-up with urology and continue indwelling Nolan catheter. Condition is chronic and stable continue to monitor. (5) PAF (paroxysmal atrial fibrillation): Code(s): I48.0 - Paroxysmal atrial fibrillation Category: Medical Plan: The patient is prescribed warfarin, with advised INR monitoring for stable levels. A cardiology follow-up is suggested for comprehensive atrial fibrillation management. Condition is chronic and stable continue to monitor. (6) On Coumadin for atrial fibrillation: Code(s): I48.91 - Unspecified atrial fibrillation; Z79.01 - FPC (current) use of anticoagulants Category: Medical Plan: Patient to continue INR between 2-3. Condition is chronic and stable continue to monitor. (7) DVT (deep venous thrombosis): Code(s): I82.409 - Acute embolism and thrombosis of unspecified deep veins of unspecified lower extremity Category: Medical Plan: Patient to continue INR between 2-3. Patient to follow-up with vascular surgery. Condition is chronic and stable continue to monitor. Plan Plan Patient was informed and verbally consented to the use of an ambient scribe for clinic note documentation during this visit. 1. Pulmonary Embolism Post identification, treatment included anticoagulation. Continual INR monitoring and vascular follow-up are annexed for complications avoidance. 2. Coronary Artery Disease Post-Pci Patient adherence to antiplatelet therapy and regular cardiovascular evaluations to stall disease progression and avert complications. 3. Urinary Tract Infection Augmentin is suggested for recurrence prevention, alongside follow-up guidance to manage fluid intake and medication adherence. 4. Abnormal Gait Continued therapy interventions, aiming to holistically improve balance evidently reduced post-surgery. 5. Atrial Fibrillation The patient is prescribed warfarin, with advised INR monitoring for stable levels. A cardiology follow-up is suggested for comprehensive atrial fibrillation management. We discussed the diagnosis of atrial fibrillation and its thromboembolic risks and the necessity of adhering to anticoagulation therapy with warfarin. I emphasized the importance of INR monitoring to prevent complications. We reviewed the management of pulmonary embolism, with recommendations for ongoing anticoagulation. The necessity for a visiting nurse to oversee INR levels was addressed. I ensured the family understood UTI implications and preventive measures initiating a course of antibiotics. We talked about the required follow-up with cardiology and possible vascular consult to manage blood clots. The importance of continued physical and occupational therapy to address gait abnormalities was underscored, fostering functional improvement post-rehabilitation discharge. Orders: Orders UA CC w/rflx Micro + Cult Today N39.0 - Urinary tract infection, site not specified Referrals Home Health Referral I26.99 - Other pulmonary embolism without acute cor pulmonale, I48.0 - Paroxysmal atrial fibrillation, I48.91 - Unspecified atrial fibrillation, N39.0 - Urinary tract infection, site not specified, R06.09 - Other forms of dyspnea, R26.89 - Other abnormalities of gait and mobility, R53.1 - Weakness, Z79.01 - terminal operations manager (current) use of anticoagulants, Z97.8 - Presence of other specified devices Visiting Nurse Association/Hospice Referral I26.99 - Other pulmonary embolism without acute cor pulmonale, I48.0 - Paroxysmal atrial fibrillation, I48.91 - Unspecified atrial fibrillation, N39.0 - Urinary tract infection, site not specified, R26.89 - Other abnormalities of gait and mobility, Z79.01 - FPC (current) use of anticoagulants, Z97.8 - Presence of other specified devices Vascular Surgery Referral I48.91 - Unspecified atrial fibrillation, I82.409 - Acute embolism and thrombosis of unspecified deep veins of unspecified lower extremity, Z79.01 - terminal operations manager (current) use of anticoagulants Medications: New amoxicillin-pot clavulanate 875-125 mg 1 tab PO BID 7 days 14 tabs 0RF Patient Instructions: - Take warfarin as prescribed and monitor your INR levels digitally. - Contact your record center coordinator to arrange an appointment for ongoing atrial fibrillation management. - Start the prescribed course of Augmentin for seven days to address urinary symptoms. - Engage with physical and occupational therapy as scheduled to improve gait and strength. - Ensure follow-up with vascular and urology specialists if not already established. - Contact healthcare providers if you experience unusual symptoms or signs of recurrent infection. - Maintain your home activity level and diet as advised by your healthcare team.
[2025-03-14 13:20] VITALS: BP 114/60; PULSE 66; RESP 18; TEMP 36.7; O2SAT 99; BMI 26.4
== END 2025-03-14 14:09 | disposition home or self-care (01) ==
LOC: HO.HMCSH 13:10
PROVIDERS: PCP Internal Medicine; Visit Provider Physician Assistant Medical
DX: I26.99 Other pulmonary embolism without acute cor pulmonale (principal); I48.0 Paroxysmal atrial fibrillation; I48.91 Unspecified atrial fibrillation; I82.409 Acute embolism and thrombosis of unspecified deep veins of unspecified lower extremity; Z09 Encounter for follow-up examination after completed treatment for conditions other than malignant neoplasm; N39.0 Urinary tract infection, site not specified; Z97.8 Presence of other specified devices; Z79.01 Long term (current) use of anticoagulants

== ENCOUNTER → 2025-03-14 13:10 | Outpatient (BNVA) | payer MEDICARE, SELFPAY | PROVIDERS: PCP Internal Medicine; Visit Provider Physician Assistant Medical | DX: N39.0 Urinary tract infection, site not specified (principal); I26.99 Other pulmonary embolism without acute cor pulmonale; I48.0 Paroxysmal atrial fibrillation; I82.403 Acute embolism and thrombosis of unspecified deep veins of lower extremity, bilateral; Z09 Encounter for follow-up examination after completed treatment for conditions other than malignant neoplasm; Z96.0 Presence of urogenital implants; Z79.01 Long term (current) use of anticoagulants | CPT/HCPCS: 96127; 99212 ==

== ENCOUNTER 2025-03-29 15:18 | Outpatient (AMB) | payer MEDICARE, SELFPAY ==
--- NOTE | 2025-03-29 15:19 | A.OFFVIS_ITS ---
Vital Signs 03/29/25 15:22 Height 5 ft 4 in Weight 154 lb BMI 26.4 BP 104/60 Blood Pressure Location Lt brachial Position Sitting Intake Visit Reasons: embolism and thrombosis of unspecified deep veins Intake Note: Pt presents to the office today for a new patient visit referred by Dr. Sapnn for embolism and thrombosis of unspecified deep vein. Allergies No Known Allergies [No Known Allergies*] Allergy (Verified 03/29/25 15:24) HPI HPI embolism and thrombosis of unspecified deep veins: Details: The patient is an 84-year-old male presenting with a follow-up for management of deep vein thrombosis and pulmonary embolism. He was admitted to the hospital in mid-January due to a urinary tract infection, followed by a pulmonary embolism and confirmed deep vein thrombosis in the legs. Prior to these events, the patient underwent cervical spine surgery, leading to reduced mobility and contributing to his condition. He primarily experiences breathlessness while laying on his back, though this alleviates when repositioning. At the current time his biggest complaint is swelling of the lower extremities. 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 Mother No problems noted. Social History Household Members: Spouse and Children Housing: House Do you presently have visiting nurse or other home services: Yes Unable to assess alcohol history related to: Unknown Alcohol intake: current Alcohol intake frequency: does not drink Patient Tobacco Use Status: Former Tobacco user service: No Current occupational status: retired Cognitive needs: Yes (walker) Hearing needs: Yes (b/l hearing aids) Vision needs: Yes (rx glasses) Review of Systems Const All systems reviewed & are unremarkable except as noted in HPI and below Reports no additional complaints ENT Reports Normal hearing present Card Denies chest pain, Denies chest pain at rest, Denies chest pain with activity and Denies pedal edema Resp Denies cough GI Denies abdominal pain Musc Denies abnormal gait, Denies muscle cramps and Denies radiating pain into limb Skin/Breast Denies skin ulcer and Denies wounds Neuro Reports Normal hearing present and Denies abnormal gait Psych Reports no additional complaints Physical Exam Vital Signs: Last Vital Signs BP 104/60 03/29/25 15:22 BMI result Body Mass Index 26.4 Const General: cooperative, healthy appearing and comfortable Orientation/consciousness: oriented to person, oriented to place and oriented to time HEENT Head: Yes normal to inspection Neck Neck: Yes normal visual inspection Carotids: no bruits Chest Chest palpation & inspection: normal inspection of the chest Resp Effort & Inspection: normal respiratory effort and able to speak in complete sentences Auscultation: clear to auscultation bilaterally, no crackles, no rales, no rhonchi and no wheezes Cardio Rate: regular rate Rhythm: regular rhythm Heart sounds: S1 normal heart sound present and S2 normal heart sound present Bruits: no carotid bruits Peripheral pulses: Peripheral pulses 2+ throughout GI Inspection: Yes normal to inspection Skin Wounds: no wounds Hair: normal Neuro General: oriented to person, oriented to place and oriented to time Cranial nerves: Yes CN's II-XII intact bilaterally and Yes Normal hearing present Cognition (Neuro): normal cognition Motor exam (neuro): 5/5 motor strength present throughout Extrem Other: venous exam: +2 edema General: No clubbing, No cyanosis and No edema Psych Appearance: grossly normal Mental Status: mental status grossly normal Speech and movement: Normal speech and movement present Assessment & Plan Assessment & Plan (1) DVT (deep venous thrombosis): Code(s): I82.409 - Acute embolism and thrombosis of unspecified deep veins of unspecified lower extremity Category: Medical Qualifiers: DVT location: lower extremity Affected thrombotic vein of extremity: unspecified vein of extremity Chronicity: chronic Laterality: unspecified laterality Qualified Code(s): I82.509 - Chronic embolism and thrombosis of unspecified deep veins of unspecified lower extremity Plan: The patient will continue on anticoagulation therapy to manage the pulmonary embolism and deep vein thrombosis for six months to a year. 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 Discussed consideration of a vena cava filter placement prior to planned prostate surgery, ensuring anticoagulation can be safely paused. A focus on conservative management was emphasized, as no immediate surgical interventions are required. We did discuss routine conservative measures including compression elevation and exercise. He will follow up with us on an as-needed basis. Thank you for allowing us to assist in his care. Patient was informed and verbally consented to the use of an ambient scribe for clinic note documentation during this visit. 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
[2025-03-29 15:22] VITALS: BP 104/60; BMI 26.4
--- OUTSIDE RECORDS SUMMARY | 2025-03-29 16:30 | XMS_ITS | Encounter Summary ---
Author Organization [facility] Address [address] [place] [address] Care Team Providers Care Multicultural Internship Name Role Phone Cj Barber DO Primary Care Provider [phone] Encounter Details Date Type Department Care Team (Late Contact Info) Description 03/01/2025 Lab Requisition [facility] - Main Lab [address] [facility] [place] [address] Fidencio Burroughs MD [address] [place] [id number] Encounter for other general examination Social History [...] Department Care Team (Late Contact Info) Description 04/25/2025 2:10 PM EDT Office Visit [facility] [address] [place] [address] Shahid Ramos NP [address] [place] [address] documented as of this encounter Procedures Procedure [...] albicans/du bliniensis( A) 03/07/2025 12:41 PM EDT [facility] Comment: Edited result: Previously reported as Yeast on 03/07/2025 at 1047 EDT. Swab Penile structure / Unknown 03/01/2025 5:22 AM EDT 03/01/2025 10:41 AM EDT us Fidencio Burroughs MD LAB MICROBIOLOGY - GENERAL ORD ERABLES Final Result [facility] [address] [place] [address], [place] [phone] * (ABNORMAL) Culture wound with gram stain (03/01/2025 5:22 AM EDT) Culture, Wound Proteus mirabilis(A) BAUDILIO 03/09/2025 9:56 AM EDT [facility] Comment: The organism value for this result has been updated. These results have been appended to the previously preliminary verified report. This is an edited result. Previous organism was Gram negative bacilli on 03/02/2025 at 1315 EDT. Edited result: Previously reported as Proteus species on 03/03/2025 at 1152 EDT. Culture, Wound Enterococcus faecalis(A) BAUDILIO 03/09/2025 9:56 AM EDT [facility] Comment: The organism value for this result has been updated. These results have been appended to the previously preliminary verified report. This is an edited result. Previous organism was Streptococcus Gamma non hemolytic on 03/06/2025 at 0911 EDT. Culture, Wound Pseudomonas aeruginosa(A) BAUDILIO 03/09/2025 9:56 AM EDT [facility] Comment: The organism value for this result has been updated. These results have been appended to the previously preliminary verified report. This is an edited result. Previous organism was Gram negative bacilli on 03/07/2025 at 1012 EDT. Gram Stain Result Moderate Polymorphonuclear leukocytes 03/09/2025 9:56 AM EDT [facility] Gram Stain Result Few Epithelial cells 03/09/2025 9:56 AM EDT [facility] Gram Stain Result No organisms seen 03/09/2025 9:56 AM EDT [facility] Swab Penile structure / Unknown [...] Susceptible Pseudomonas aeruginosa Cefepime DISK DIFFUSION Susceptible us Fidencio Burroughs MD LAB MICROBIOLOGY - GENERAL ORD ERABLES Final Result [facility] [address] [place] [address], documented in this encounter Visit Diagnoses Diagnosis Encounter for other general examination documented in this encounter Care Teams Multicultural Internship Relationship Specialty Start Date End Date Cj Barber DO [address] [place] [phone] PCP - General 04/21/13 documented as of this encounter
--- OUTSIDE RECORDS SUMMARY | 2025-03-29 16:30 | XMS_ITS | Encounter Summary ---
Author Organization [facility] Address [address] [place] [address] Care Team Providers Care Loss Prevention Officer Name Role Phone Cj Barber DO Primary Care Provider [phone] Encounter Details Date Type Department Care Team (Late Contact Info) Description 01/17/2025 Lab Requisition [facility] - Main Lab [address] [facility] [place] [address] Fidencio Burroughs MD [address] [place] [phone] Encounter for other general examination Social History [...] Description 04/25/2025 2:10 PM EDT Office Visit [facility] [address] [place] [address] Shahid Ramos NP [address] [place] [address] documented as of this encounter Procedures Procedure [...] mirabilis(A ) BAUDILIO 01/19/2025 11:30 AM EST [facility] Comment: Edited result: Previously reported [...] MICROBIOLOGY - GENERAL ORD ERABLES Final Result [facility] [address] [place] [address], [place] [phone] * (ABNORMAL) Urinalysis with reflex microscopic and culture (01/17/2025 4:00 AM EST) Specific [place] Urine 1.009 1.003 - 1.030 LAB URINALYSIS - AUTOMATED METHOD 01/17/2025 12:04 PM [facility] pH, Urine 7.5 5.0 - 8.0 pH LAB URINALYSIS - AUTOMATED METHOD 01/17/2025 12:04 PM [facility] Leukocytes, Urine Large(A) Negative LAB URINALYSIS - AUTOMATED METHOD 01/17/2025 12:04 PM [facility] Nitrite, Urine Negative Negative LAB URINALYSIS - AUTOMATED METHOD 01/17/2025 12:04 PM [facility] Protein, Urine 30(A) <=Trace mg/dL LAB URINALYSIS - AUTOMATED METHOD 01/17/2025 12:04 PM [facility] Glucose, Urine Negative Negative mg/dL LAB URINALYSIS - AUTOMATED METHOD 01/17/2025 12:04 PM [facility] Ketones, Urine Negative Negative mg/dL LAB URINALYSIS - AUTOMATED METHOD 01/17/2025 12:04 PM [facility] Urobilinogen, Urine 1.0 0.2 - 1.0 mg/dL LAB URINALYSIS - AUTOMATED METHOD 01/17/2025 12:04 PM [facility] Bilirubin, Urine Negative Negative LAB URINALYSIS - AUTOMATED METHOD 01/17/2025 12:04 PM EST [facility] Blood, Urine Large(A) Negative LAB URINALYSIS - AUTOMATED METHOD 01/17/2025 12:04 PM [facility] RBC, Urine 501.9(H) 0 - 4 /HPF LAB URINALYSIS - AUTOMATED METHOD 01/17/2025 12:04 PM [facility] WBC, Urine 505.7(H) 0 - 4 /HPF LAB URINALYSIS - AUTOMATED METHOD 01/17/2025 12:04 PM [facility] Squamous Epithelial, Urine 4 0 - 60 /LPF LAB URINALYSIS - AUTOMATED METHOD 01/17/2025 12:04 PM [facility] Bacteria, Urine Negative Negative /HPF LAB URINALYSIS - AUTOMATED METHOD 01/17/2025 12:04 PM [facility] Hyaline Casts, Urine 4.8(H) 0 - 3 /LPF LAB URINALYSIS - AUTOMATED METHOD 01/17/2025 12:04 PM [facility] Urine Indwelling urinary catheter / Unknown Non-blood Collection / Unknown 01/17/2025 4:00 AM EST 01/17/2025 10:12 AM EST Fidencio Burroughs MD LAB URINE ORDERABLES Final Res ult [facility] [address] [place] [address], [place] [phone] * Mckeon urine culture tube (01/17/2025 4:00 AM EST) Extra Tube Hold for add-ons. 01/17/2025 12:01 PM [facility] Comment:Auto resulted. Urine Indwelling urinary catheter / Unknown Non-blood Collection / Unknown 01/17/2025 4:00 AM EST 01/17/2025 10:12 AM EST Fidencio Burroughs MD LAB URINE ORDERABLES Final Res ult [facility] [address] [place] [address], documented in this encounter Visit Diagnoses Diagnosis Encounter for other general examination documented in this encounter Care Teams Loss Prevention Officer Relationship Specialty Start Date End Date Cj Barber DO [address] [place] [phone] PCP - General 04/21/13 documented as of this encounter
--- OUTSIDE RECORDS SUMMARY | 2025-03-29 16:30 | XMS_ITS | Encounter Summary ---
Author Organization [facility] Address [address] [place] [address] Care Team Providers Care Failure Analysis Technician Name Role Phone Cj Barber DO Primary Care Provider [phone] Encounter Details Date Type Department Care Team (Late Contact Info) Description 02/26/[address] [facility] - Main Lab [address] [facility] [place] [address] Fidencio Burroughs MD [address] [place] [phone] Encounter for other general examination Social History [...] Description 04/25/2025 2:10 PM EDT Office Visit [facility] [address] [place] [address] Shahid Ramos NP [address] [place] [address] documented as of this encounter Procedures Procedure [...] CBC auto differential (02/26/2025 6:35 AM EDT) [facility] WBC 11.9(H) 4.8 - 10.8 K/mcL LAB HEMETOLOGY METHOD 02/26/2025 11:12 AM [facility] RBC 4.20(L) 4.50 - 5.50 M/mcL LAB HEMETOLOGY METHOD 02/26/2025 11:12 AM [facility] Hemoglobin 12.6(L) 13.5 - 17.5 g/dL LAB HEMETOLOGY METHOD 02/26/2025 11:12 AM [facility] Hematocrit 38.4(L) 42.0 - 54.0 % LAB HEMETOLOGY METHOD 02/26/2025 11:12 AM [facility] MCV 92.5 79.0 - 98.0 FL LAB HEMETOLOGY METHOD 02/26/2025 11:12 AM [facility] MCH 30.4 27.0 - 32.0 pcg LAB HEMETOLOGY METHOD 02/26/2025 11:12 AM [facility] MCHC 32.8 32.0 - 37.0 g/dL LAB HEMETOLOGY METHOD 02/26/2025 11:12 AM [facility] RDW 13.6 11.0 - 15.0 % LAB HEMETOLOGY METHOD 02/26/2025 11:12 AM [facility] Platelets 02/26/2025 11:12 AM [facility] Comment:Not measured. Platel ets appear adequate but clumped MPV 10.5 7.0 - 11.0 FL LAB HEMETOLOGY METHOD 02/26/2025 11:12 AM [facility] NRBC 0.0 <1.0 % LAB HEMETOLOGY METHOD 02/26/2025 11:12 AM [facility] NRBC Absolute 0.00 <0.10 K/mcL LAB HEMETOLOGY METHOD 02/26/2025 11:12 AM [facility] Neutrophils Relative 78.4 % LAB HEMETOLOGY METHOD 02/26/2025 11:12 AM [facility] Lymphocytes Relative 13.1 % LAB HEMETOLOGY METHOD 02/26/2025 11:12 AM [facility] Monocytes Relative 7.0 % LAB HEMETOLOGY METHOD 02/26/2025 11:12 AM [facility] Eosinophils Relative 1.0 % LAB HEMETOLOGY METHOD 02/26/2025 11:12 AM [facility] Basophils Relative 0.2 % LAB HEMETOLOGY METHOD 02/26/2025 11:12 AM [facility] Immature Granulocytes Relative 0.3 % LAB HEMETOLOGY METHOD 02/26/2025 11:12 AM [facility] Neutrophils Absolute 9.33(H) 1.50 - 7.00 K/mcL LAB HEMETOLOGY METHOD 02/26/2025 11:12 AM [facility] Lymphocytes Absolute 1.56 1.00 - 5.00 K/mcL LAB HEMETOLOGY METHOD 02/26/2025 11:12 AM [facility] Monocytes Absolute 0.83 0.20 - 1.00 K/mcL LAB HEMETOLOGY METHOD 02/26/2025 11:12 AM [facility] Eosinophils Absolute 0.12 0.00 - 0.50 K/mcL LAB HEMETOLOGY METHOD 02/26/2025 11:12 AM [facility] Basophils Absolute 0.02 0.00 - 0.20 K/mcL LAB HEMETOLOGY METHOD 02/26/2025 11:12 AM EDT [facility] Immature Granulocytes Absolute 0.04(H) 0.00 - 0.03 K/mcL LAB HEMETOLOGY METHOD 02/26/2025 11:12 AM T [facility] Blood Venous blood specimen / Unknown Venipuncture / Unknown 02/26/2025 6:35 AM EDT 02/26/2025 9:37 AM EDT us Fidencio Burroughs MD LAB BLOOD ORDERABLES Final Res ult [facility] [address] [place] [address], * (ABNORMAL) Comprehensive metabolic panel (02/26/2025 6:35 AM EDT) Sodium 135 133 - 145 mmol/L LAB CHEMISTRY METHOD 02/26/2025 11:29 AM [facility] Potassium 4.1 3.5 - 5.5 mmol/L LAB CHEMISTRY METHOD 02/26/2025 11:29 AM [facility] Chloride 98 96 - 110 mmol/L LAB CHEMISTRY METHOD 02/26/2025 11:29 AM [facility] CO2 33(H) 21 - 32 mmol/L LAB CHEMISTRY METHOD 02/26/2025 11:29 AM [facility] Anion Gap 4 3 - 11 LAB CHEMISTRY METHOD 02/26/2025 11:29 AM [facility] Glucose 83 70 - 100 mg/dL LAB CHEMISTRY METHOD 02/26/2025 11:29 AM [facility] BUN 17 5 - 25 mg/dL LAB CHEMISTRY METHOD 02/26/2025 11:29 AM [facility] Creatinine 0.50(L) 0.70 - 1.30 mg/dL LAB CHEMISTRY METHOD 02/26/2025 11:29 AM [facility] eGFR 100 >=60 mL/min/1. 73m2 LAB CHEMISTRY METHOD 02/26/2025 11:29 AM [facility] Comment:Calculation based on the??Chronic Kidney Disease Epidemiology Collaboration (CKD-EPI) equation refit??without adjustment for race. BUN/Creatinine Ratio 34.0 LAB CHEMISTRY METHOD 02/26/2025 11:29 AM [facility] Calcium 8.7 8.5 - 10.5 mg/dL LAB CHEMISTRY METHOD 02/26/2025 11:29 AM [facility] AST (SGOT) 59(H) 10 - 42 unit/L LAB CHEMISTRY METHOD 02/26/2025 11:29 AM [facility] ALT (SGPT) 95(H) 10 - 60 unit/L LAB CHEMISTRY METHOD 02/26/2025 11:29 AM [facility] Alkaline Phosphatase 105 42 - 121 unit/L LAB CHEMISTRY METHOD 02/26/2025 11:29 AM [facility] Total Protein 5.8(L) 6.0 - 8.0 g/dL LAB CHEMISTRY METHOD 02/26/2025 11:29 AM [facility] Albumin 3.1(L) 3.2 - 5.0 g/dL LAB CHEMISTRY METHOD 02/26/2025 11:29 AM [facility] Total Bilirubin 1.0 0.0 - 1.4 mg/dL LAB CHEMISTRY METHOD 02/26/2025 11:29 AM [facility] Blood Venous blood specimen / Unknown Venipuncture / Unknown 02/26/2025 6:35 AM EDT 02/26/2025 9:37 AM EDT Fidencio Burroughs MD LAB BLOOD ORDERABLES Final Res ult [facility] [address] [place] [address], documented in this encounter Visit Diagnoses Diagnosis Encounter for other general examination documented in this encounter Care Teams Failure Analysis Technician Relationship Specialty Start Date End Date Cj Barber DO [address] [place] [phone] PCP - General 04/21/13 documented as of this encounter
--- OUTSIDE RECORDS SUMMARY | 2025-03-29 16:30 | XMS_ITS | Encounter Summary ---
Author Organization [facility] Address [address] [place] [address] Care Team Providers Care Floor Press Operator Name Role Phone Cj Barber DO Primary Care Provider [phone] Encounter Details Date Type Department Care Team (Late Contact Info) Description 01/15/2025 Lab Requisition [facility] - Main Lab 299 [facility] [place] [address] Fidencio Burroughs MD [address] [place] [id number] Encounter for other general examination Social History [...] Description 04/25/2025 2:10 PM EDT Office Visit [facility] Cardiology Associates [facility] [address] [place] [address] Shahid Ramos NP [address] [place] [address] documented as of this encounter Procedures Procedure [...] CBC auto differential (01/15/2025 6:39 AM EST) [facility] WBC 8.0 4.8 - 10.8 K/mcL LAB HEMETOLOGY METHOD 01/15/2025 11:56 AM [facility] LAB RBC 4.50 4.50 - 5.50 M/mcL LAB HEMETOLOGY METHOD 01/15/2025 11:56 AM [facility] LAB Hemoglobin 13.9 13.5 - 17.5 g/dL LAB HEMETOLOGY METHOD 01/15/2025 11:56 AM [facility] LAB Hematocrit 42.3 42.0 - 54.0 % LAB HEMETOLOGY METHOD 01/15/2025 11:56 AM [facility] LAB MCV 95.1 79.0 - 98.0 FL LAB HEMETOLOGY METHOD 01/15/2025 11:56 AM [facility] LAB MCH 31.2 27.0 - 32.0 pcg LAB HEMETOLOGY METHOD 01/15/2025 11:56 AM [facility] LAB MCHC 32.9 32.0 - 37.0 g/dL LAB HEMETOLOGY METHOD 01/15/2025 11:56 AM [facility] LAB RDW 13.2 11.0 - 15.0 % LAB HEMETOLOGY METHOD 01/15/2025 11:56 AM [facility] LAB Platelets 01/15/2025 11:56 AM [facility] LAB Comment:Not measured. Platel ets appear adequate but clumped MPV 11.4(H) 7.0 - 11.0 FL LAB HEMETOLOGY METHOD 01/15/2025 11:56 AM [facility] LAB NRBC 0.0 <1.0 % LAB HEMETOLOGY METHOD 01/15/2025 11:56 AM [facility] LAB NRBC Absolute 0.00 <0.10 K/mcL LAB HEMETOLOGY METHOD 01/15/2025 11:56 AM [facility] LAB Neutrophils Relative 76.9 % LAB HEMETOLOGY METHOD 01/15/2025 11:56 AM [facility] Lymphocytes Relative 11.4 % LAB HEMETOLOGY METHOD 01/15/2025 11:56 AM [facility] Monocytes Relative 10.7 % LAB HEMETOLOGY METHOD 01/15/2025 11:56 AM [facility] Eosinophils Relative 0.6 % LAB HEMETOLOGY METHOD 01/15/2025 11:56 AM [facility] Basophils Relative 0.2 % LAB HEMETOLOGY METHOD 01/15/2025 11:56 AM [facility] Immature Granulocytes Relative 0.2 % LAB HEMETOLOGY METHOD 01/15/2025 11:56 AM [facility] LAB Neutrophils Absolute 6.15 1.50 - 7.00 K/mcL LAB HEMETOLOGY METHOD 01/15/2025 11:56 AM [facility] Lymphocytes Absolute 0.91(L) 1.00 - 5.00 K/mcL LAB HEMETOLOGY METHOD 01/15/2025 11:56 AM [facility] Monocytes Absolute 0.86 0.20 - 1.00 K/mcL LAB HEMETOLOGY METHOD 01/15/2025 11:56 AM [facility] LAB Eosinophils Absolute 0.05 0.00 - 0.50 K/mcL LAB HEMETOLOGY METHOD 01/15/2025 11:56 AM EST [facility] Basophils Absolute 0.02 0.00 - 0.20 K/[facility] LAB HEMETOLOGY METHOD 01/15/2025 11:56 AM EST [facility] Immature Granulocytes Absolute 0.02 0.00 - 0.03 K/[facility] LAB HEMETOLOGY METHOD 01/15/2025 11:56 AM EST [facility] Blood Venous blood specimen / Unknown Venipuncture / Unknown 01/15/2025 6:39 AM EST 01/15/2025 10:03 AM EST Fidencio Burroughs MD LAB BLOOD ORDERABLES Final Res ult Performing Organization Address City/[facility]/ZIP Co de Phone Number [facility] [address] [place] [address], [place] [phone] * Magnesium (01/15/2025 6:39 AM EST) Magnesium 2.0 1.9 - 2.6 mg/dL LAB CHEMISTRY METHOD 01/15/2025 11:40 AM EST [facility] Blood Venous blood specimen / Unknown Venipuncture / Unknown 01/15/2025 6:39 AM EST 01/15/2025 10:03 AM EST Fidencio Burroughs MD LAB BLOOD ORDERABLES Final Res ult [facility] [address] [place] [address], [place] [phone] * (ABNORMAL) Comprehensive metabolic panel (01/15/2025 6:39 AM EST) Sodium 136 133 - 145 mmol/L LAB CHEMISTRY METHOD 01/15/2025 11:40 AM EST [facility] Potassium 3.9 3.5 - 5.5 mmol/L LAB CHEMISTRY METHOD 01/15/2025 11:40 AM EST [facility] Chloride 103 96 - 110 mmol/L LAB CHEMISTRY METHOD 01/15/2025 11:40 AM [facility] CO2 28 21 - 32 mmol/L LAB CHEMISTRY METHOD 01/15/2025 11:40 AM [facility] Anion Gap 5 3 - 11 LAB CHEMISTRY METHOD 01/15/2025 11:40 AM [facility] Glucose 89 70 - 100 mg/dL LAB CHEMISTRY METHOD 01/15/2025 11:40 AM [facility] BUN 15 5 - 25 mg/dL LAB CHEMISTRY METHOD 01/15/2025 11:40 AM [facility] Creatinine 0.48(L) 0.70 - 1.30 mg/dL LAB CHEMISTRY METHOD 01/15/2025 11:40 AM [facility] LAB eGFR 101 >=60 mL/min/1. 73m2 LAB CHEMISTRY METHOD 01/15/2025 11:40 AM [facility] LAB Comment:Calculation based on the??Chronic Kidney Disease Epidemiology Collaboration (CKD-EPI) equation refit??without adjustment for race. BUN/Creatinine Ratio 31.3 LAB CHEMISTRY METHOD 01/15/2025 11:40 AM [facility] Calcium 8.8 8.5 - 10.5 mg/dL LAB CHEMISTRY METHOD 01/15/2025 11:40 AM [facility] AST (SGOT) 28 10 - 42 unit/L LAB CHEMISTRY METHOD 01/15/2025 11:40 AM [facility] ALT (SGPT) 31 10 - 60 unit/L LAB CHEMISTRY METHOD 01/15/2025 11:40 AM [facility] Alkaline Phosphatase 104 42 - 121 unit/L LAB CHEMISTRY METHOD 01/15/2025 11:40 AM [facility] Total Protein 5.9(L) 6.0 - 8.0 g/dL LAB CHEMISTRY METHOD 01/15/2025 11:40 AM [facility] Albumin 2.9(L) 3.2 - 5.0 g/dL LAB CHEMISTRY METHOD 01/15/2025 11:40 AM EST [facility] Total Bilirubin 1.0 0.0 - 1.4 mg/dL LAB CHEMISTRY METHOD 01/15/2025 11:40 AM EST [facility] Blood Venous blood specimen / Unknown Venipuncture / Unknown 01/15/2025 6:39 AM EST 01/15/2025 10:03 AM EST us Fidencio Burroughs MD LAB BLOOD ORDERABLES Final Res ult [facility] [address] [place] [address], documented in this encounter Visit Diagnoses Diagnosis Encounter for other general examination documented in this encounter Care Teams Floor Press Operator Relationship Specialty Start Date End Date Cj Barber DO [address] [place] [phone] PCP - General 04/21/13 documented as of this encounter
--- OUTSIDE RECORDS SUMMARY | 2025-03-29 16:30 | XMS_ITS | Encounter Summary ---
Author Organization [facility] Address [address] [place] [address] Care Team Providers Care Tourist Escort Name Role Phone Cj Barber DO Primary Care Provider [phone] Encounter Details Date Type Department Care Team (Late Contact Info) Description 02/24/2025 Lab Requisition [facility] - Main Lab 299 [facility] [place] [address] Fidencio Burroughs MD [address] [place] [address] Encounter for other general examination Social History [...] Description 04/25/2025 2:10 PM EDT Office Visit [facility] Cardiology Associates [facility] [address] [place] [address] Shahid Ramos NP [address] [place] [address] documented as of this encounter Procedures Procedure Name Priority Date/Time Associated Diagnosis Comments COMPLETE BLOOD COUNT Routine 02/24/2025 5:01 AM EDT Encounter for other general examination COMPREHENSIVE METABOLIC PANEL Routine 02/24/2025 5:01 AM EDT Encounter for other general examination documented in this encounter Results * (ABNORMAL) Complete blood count (02/24/2025 5:01 AM EDT) [facility] WBC 12.6(H) 4.8 - 10.8 K/mcL LAB HEMETOLOGY METHOD 02/24/2025 10:22 AM [facility] RBC 4.20(L) 4.50 - 5.50 M/mcL LAB HEMETOLOGY METHOD 02/24/2025 10:22 AM [facility] Hemoglobin 12.6(L) 13.5 - 17.5 g/dL LAB HEMETOLOGY METHOD 02/24/2025 10:22 AM [facility] LAB Hematocrit 37.1(L) 42.0 - 54.0 % LAB HEMETOLOGY METHOD 02/24/2025 10:22 AM [facility] LAB MCV 89.4 79.0 - 98.0 FL LAB HEMETOLOGY METHOD 02/24/2025 10:22 AM [facility] LAB MCH 30.4 27.0 - 32.0 pcg LAB HEMETOLOGY METHOD 02/24/2025 10:22 AM [facility] LAB MCHC 34.0 32.0 - 37.0 g/dL LAB HEMETOLOGY METHOD 02/24/2025 10:22 AM [facility] LAB RDW 13.3 11.0 - 15.0 % LAB HEMETOLOGY METHOD 02/24/2025 10:22 AM [facility] LAB Platelets 02/24/2025 10:22 AM [facility] LAB Comment:Not measured. Platel ets appear adequate but clumped MPV 10.3 7.0 - 11.0 FL LAB HEMETOLOGY METHOD 02/24/2025 10:22 AM [facility] LAB NRBC 0.0 <1.0 % LAB HEMETOLOGY METHOD 02/24/2025 10:22 AM [facility] LAB NRBC Absolute 0.00 <0.10 K/mcL LAB HEMETOLOGY METHOD 02/24/2025 10:22 AM [facility] Blood Venous blood specimen / Unknown Venipuncture / Unknown 02/24/2025 5:01 AM EDT 02/24/2025 8:10 AM EDT us Fidencio Burroughs MD LAB BLOOD ORDERABLES Final Res ult [facility] [address] [place] [address], [place] [phone] * (ABNORMAL) Comprehensive metabolic panel (02/24/2025 5:01 AM EDT) Sodium 135 133 - 145 mmol/L LAB CHEMISTRY METHOD 02/24/2025 10:11 AM [facility] Potassium 3.9 3.5 - 5.5 mmol/L LAB CHEMISTRY METHOD 02/24/2025 10:11 AM [facility] Chloride 98 96 - 110 mmol/L LAB CHEMISTRY METHOD 02/24/2025 10:11 AM [facility] CO2 29 21 - 32 mmol/L LAB CHEMISTRY METHOD 02/24/2025 10:11 AM [facility] Anion Gap 8 3 - 11 LAB CHEMISTRY METHOD 02/24/2025 10:11 AM [facility] Glucose 73 70 - 100 mg/dL LAB CHEMISTRY METHOD 02/24/2025 10:11 AM [facility] BUN 18 5 - 25 mg/dL LAB CHEMISTRY METHOD 02/24/2025 10:11 AM [facility] Creatinine 0.56(L) 0.70 - 1.30 mg/dL LAB CHEMISTRY METHOD 02/24/2025 10:11 AM [facility] LAB eGFR 97 >=60 mL/min/1. 73m2 LAB CHEMISTRY METHOD 02/24/2025 10:11 AM [facility] LAB Comment:Calculation based on the??Chronic Kidney Disease Epidemiology Collaboration (CKD-EPI) equation refit??without adjustment for race. BUN/Creatinine Ratio 32.1 LAB CHEMISTRY METHOD 02/24/2025 10:11 AM [facility] Calcium 8.8 8.5 - 10.5 mg/dL LAB CHEMISTRY METHOD 02/24/2025 10:11 AM [facility] AST (SGOT) 33 10 - 42 unit/L LAB CHEMISTRY METHOD 02/24/2025 10:11 AM [facility] ALT (SGPT) 55 10 - 60 unit/L LAB CHEMISTRY METHOD 02/24/2025 10:11 AM [facility] LAB Alkaline Phosphatase 100 42 - 121 unit/L LAB CHEMISTRY METHOD 02/24/2025 10:11 AM [facility] Total Protein 5.4(L) 6.0 - 8.0 g/dL LAB CHEMISTRY METHOD 02/24/2025 10:11 AM [facility] Albumin 2.9(L) 3.2 - 5.0 g/dL LAB CHEMISTRY METHOD 02/24/2025 10:11 AM [facility] Total Bilirubin 0.7 0.0 - 1.4 mg/dL LAB CHEMISTRY METHOD 02/24/2025 10:11 AM [facility] LAB Blood Venous blood specimen / Unknown Venipuncture / Unknown 02/24/2025 5:01 AM EDT 02/24/2025 8:10 AM EDT us Fidencio Burroughs MD LAB BLOOD ORDERABLES Final Res ult [facility] [address] [place] [address], documented in this encounter Visit Diagnoses Diagnosis Encounter for other general examination documented in this encounter Care Teams Tourist Escort Relationship Specialty Start Date End Date Cj Barbre DO [address] [place] [phone] PCP - General 04/21/13 documented as of this encounter
--- OUTSIDE RECORDS SUMMARY | 2025-03-29 16:30 | XMS_ITS | Encounter Summary ---
Author Organization [facility] Address [address] [place] [address] Care Team Providers Care Product Manager Financial Services Name Role Phone Cj Barber DO Primary Care Provider [phone] Encounter Details Date Type Department Care Team (Late Contact Info) Description 03/07/2025 Lab Requisition [facility] - Main Lab 299 [facility] [place] [address] Fidencio Burroughs MD [address] [place] [phone] Encounter for other general examination Social History [...] Description 04/25/2025 2:10 PM EDT Office Visit [facility] Cardiology Associates [facility] [address] [place] [address] Shahid Ramos NP [address] [place] [address] documented as of this encounter Procedures Procedure Name Priority Date/Time Associated Diagnosis Comments COMPLETE BLOOD COUNT Routine 03/07/2025 5:15 AM EDT Encounter for other general examination COMPREHENSIVE METABOLIC PANEL Routine 03/07/2025 5:15 AM EDT Encounter for other general examination documented in this encounter Results * (ABNORMAL) Complete blood count (03/07/2025 5:15 AM EDT) [facility] Signature WBC 7.3 4.8 - 10.8 K/mcL LAB HEMETOLOGY METHOD 03/07/2025 1:40 PM EDT [facility] RBC 3.70(L) 4.50 - 5.50 M/mcL LAB HEMETOLOGY METHOD 03/07/2025 1:40 PM EDT [facility] Hemoglobin 11.5(L) 13.5 - 17.5 g/dL LAB HEMETOLOGY METHOD 03/07/2025 1:[facility] Hematocrit 34.9(L) 42.0 - 54.0 % LAB HEMETOLOGY METHOD 03/07/2025 1:40 PM EDT [facility] MCV 93.8 79.0 - 98.0 FL LAB HEMETOLOGY METHOD 03/07/2025 1:40 [facility] MCH 30.9 27.0 - 32.0 pcg LAB HEMETOLOGY METHOD 03/07/2025 1:40 [facility] MCHC 33.0 32.0 - 37.0 g/dL LAB HEMETOLOGY METHOD 03/07/2025 1:40 PM EDT [facility] RDW 14.7 11.0 - 15.0 % LAB HEMETOLOGY METHOD 03/07/2025 1:40 [facility] Platelets 03/07/2025 1:40 PM EDT [facility] Comment:Not measured. Unable to quantitate due to platelet clumping MPV 9.2 7.0 - 11.0 FL LAB HEMETOLOGY METHOD 03/07/2025 1:40 PM EDT [facility] NRBC 0.0 <1.0 % LAB HEMETOLOGY METHOD 03/07/2025 1:40 PM EDT [facility] NRBC Absolute 0.00 <0.10 K/mcL LAB HEMETOLOGY METHOD 03/07/2025 1:40 PM [facility] Blood Venous blood specimen / Unknown Venipuncture / Unknown 03/07/2025 5:15 AM EDT 03/07/2025 10:19 AM EDT us Fidencio Burroughs MD LAB BLOOD ORDERABLES Final Res ult [facility] [address] [place] [address], [place] [phone] * (ABNORMAL) Comprehensive metabolic panel (03/07/2025 5:15 AM EDT) Sodium 137 133 - 145 mmol/L LAB CHEMISTRY METHOD 03/07/2025 12:39 PM [facility] Potassium 3.8 3.5 - 5.5 mmol/L LAB CHEMISTRY METHOD 03/07/2025 12:39 PM [facility] Chloride 101 96 - 110 mmol/L LAB CHEMISTRY METHOD 03/07/2025 12:39 PM [facility] CO2 32 21 - 32 mmol/L LAB CHEMISTRY METHOD 03/07/2025 12:39 PM [facility] Anion Gap 4 3 - 11 LAB CHEMISTRY METHOD 03/07/2025 12:39 PM [facility] Glucose 77 70 - 100 mg/dL LAB CHEMISTRY METHOD 03/07/2025 12:39 PM [facility] BUN 14 5 - 25 mg/dL LAB CHEMISTRY METHOD 03/07/2025 12:39 PM [facility] Creatinine 0.51(L) 0.70 - 1.30 mg/dL LAB CHEMISTRY METHOD 03/07/2025 12:39 PM [facility] eGFR 99 >=60 mL/min/1. 73m2 LAB CHEMISTRY METHOD 03/07/2025 12:39 PM [facility] Comment:Calculation based on the??Chronic Kidney Disease Epidemiology Collaboration (CKD-EPI) equation refit??without adjustment for race. BUN/Creatinine Ratio 27.5 LAB CHEMISTRY METHOD 03/07/2025 12:39 PM [facility] Calcium 8.6 8.5 - 10.5 mg/dL LAB CHEMISTRY METHOD 03/07/2025 12:39 PM [facility] AST (SGOT) 32 10 - 42 unit/L LAB CHEMISTRY METHOD 03/07/2025 12:39 PM [facility] ALT (SGPT) 48 10 - 60 unit/L LAB CHEMISTRY METHOD 03/07/2025 12:39 PM [facility] Alkaline Phosphatase 116 42 - 121 unit/L LAB CHEMISTRY METHOD 03/07/2025 12:39 PM [facility] Total Protein 5.3(L) 6.0 - 8.0 g/dL LAB CHEMISTRY METHOD 03/07/2025 12:39 PM [facility] Albumin 2.8(L) 3.2 - 5.0 g/dL LAB CHEMISTRY METHOD 03/07/2025 12:39 PM [facility] Total Bilirubin 1.0 0.0 - 1.4 mg/dL LAB CHEMISTRY METHOD 03/07/2025 12:39 PM [facility] Blood Venous blood specimen / Unknown Venipuncture / Unknown 03/07/2025 5:15 AM EDT 03/07/2025 10:19 AM EDT us Fidencio Burroughs MD LAB BLOOD ORDERABLES Final Res ult [facility] [address] [place] [address], documented in this encounter Visit Diagnoses Diagnosis Encounter for other general examination documented in this encounter Care Teams Product Manager Financial Services Relationship Specialty Start Date End Date Cj Barber DO [address] [place] [phone] PCP - General 04/21/13 documented as of this encounter
--- OUTSIDE RECORDS SUMMARY | 2025-03-29 16:30 | XMS_ITS | Encounter Summary ---
Author Organization [facility] Address [address] [place] [address] Care Team Providers Care City Weighmaster Name Role Phone Cj Barber DO Primary Care Provider [phone] Encounter Details Date Type Department Care Team (Late Contact Info) Description 01/25/2025 Lab Requisition [facility] - Main Lab 299 [facility] [place] [address] Fidencio Burroughs MD [address] [place] [address] Encounter for other general examination Social History [...] Description 04/25/2025 2:10 PM EDT Office Visit [facility] Cardiology Associates [facility] [address] [place] [address] Shahid Ramos NP [address] [place] [address] documented as of this encounter Procedures Procedure [...] K/mcL LAB HEMETOLOGY METHOD 01/25/2025 11:36 AM [facility] RBC 4.50 4.50 - 5.50 M/mcL LAB HEMETOLOGY METHOD 01/25/2025 11:36 AM [facility] Hemoglobin 13.7 13.5 - 17.5 g/dL LAB HEMETOLOGY METHOD 01/25/2025 11:36 AM [facility] Hematocrit 41.6(L) 42.0 - 54.0 % LAB HEMETOLOGY METHOD 01/25/2025 11:36 AM [facility] MCV 93.3 79.0 - 98.0 FL LAB HEMETOLOGY METHOD 01/25/2025 11:36 AM [facility] MCH 30.7 27.0 - 32.0 pcg LAB HEMETOLOGY METHOD 01/25/2025 11:36 AM [facility] MCHC 32.9 32.0 - 37.0 g/dL LAB HEMETOLOGY METHOD 01/25/2025 11:36 AM [facility] RDW 12.9 11.0 - 15.0 % LAB HEMETOLOGY METHOD 01/25/2025 11:36 AM [facility] Platelets 01/25/2025 11:36 AM [facility] Comment:Not measured. Platel ets appear adequate but clumped MPV 11.1(H) 7.0 - 11.0 FL LAB HEMETOLOGY METHOD 01/25/2025 11:36 AM [facility] NRBC 0.0 <1.0 % LAB HEMETOLOGY METHOD 01/25/2025 11:36 AM EST [facility] NRBC Absolute 0.00 <0.10 K/mcL LAB HEMETOLOGY METHOD 01/25/2025 11:36 AM EST [facility] Blood Venous blood specimen / Unknown Venipuncture / Unknown 01/25/2025 7:02 AM EST 01/25/2025 10:36 AM EST us Fidencio Burroughs MD LAB BLOOD ORDERABLES Final Res ult [facility] [address] [place] [address], [place] [phone] * (ABNORMAL) Comprehensive metabolic panel (01/25/2025 7:02 AM EST) Sodium 137 133 - 145 mmol/L LAB CHEMISTRY METHOD 01/25/2025 11:50 AM [facility] Potassium 3.9 3.5 - 5.5 mmol/L LAB CHEMISTRY METHOD 01/25/2025 11:50 AM [facility] Chloride 101 96 - 110 mmol/L LAB CHEMISTRY METHOD 01/25/2025 11:50 AM [facility] CO2 27 21 - 32 mmol/L LAB CHEMISTRY METHOD 01/25/2025 11:50 AM [facility] Anion Gap 9 3 - 11 LAB CHEMISTRY METHOD 01/25/2025 11:50 AM [facility] Glucose 87 70 - 100 mg/dL LAB CHEMISTRY METHOD 01/25/2025 11:50 AM [facility] BUN 10 5 - 25 mg/dL LAB CHEMISTRY METHOD 01/25/2025 11:50 AM [facility] Creatinine 0.50(L) 0.70 - 1.30 mg/dL LAB CHEMISTRY METHOD 01/25/2025 11:50 AM [facility] eGFR 100 >=60 mL/min/1. 73m2 LAB CHEMISTRY METHOD 01/25/2025 11:50 AM [facility] Comment:Calculation based on the??Chronic Kidney Disease Epidemiology Collaboration (CKD-EPI) equation refit??without adjustment for race. BUN/Creatinine Ratio 20.0 LAB CHEMISTRY METHOD 01/25/2025 11:50 AM [facility] Calcium 9.1 8.5 - 10.5 mg/dL LAB CHEMISTRY METHOD 01/25/2025 11:50 AM [facility] AST (SGOT) 28 10 - 42 unit/L LAB CHEMISTRY METHOD 01/25/2025 11:50 AM [facility] ALT (SGPT) 38 10 - 60 unit/L LAB CHEMISTRY METHOD 01/25/2025 11:50 AM [facility] Alkaline Phosphatase 127(H) 42 - 121 unit/L LAB CHEMISTRY METHOD 01/25/2025 11:50 AM [facility] Total Protein 6.1 6.0 - 8.0 g/dL LAB CHEMISTRY METHOD 01/25/2025 11:50 AM [facility] Albumin 3.1(L) 3.2 - 5.0 g/dL LAB CHEMISTRY METHOD 01/25/2025 11:50 AM [facility] Total Bilirubin 0.7 0.0 - 1.4 mg/dL LAB CHEMISTRY METHOD 01/25/2025 11:50 AM [facility] Blood Venous blood specimen / Unknown Venipuncture / Unknown 01/25/2025 7:02 AM EST 01/25/2025 10:36 AM EST us Fidencio Burroughs MD LAB BLOOD ORDERABLES Final Res ult [facility] [address] [place] [address], documented in this encounter Visit Diagnoses Diagnosis Encounter for other general examination documented in this encounter Care Teams City Weighmaster Relationship Specialty Start Date End Date Cj Barber DO [address] [place] [phone] PCP - General 04/21/13 documented as of this encounter
--- OUTSIDE RECORDS SUMMARY | 2025-03-29 16:30 | XMS_ITS | Clinical Summary ---
Author Organization [facility] Address [address] [place] [address] Phone Care Team Providers Care Director Food And Beverage Name Role Phone Cj Barber DO Primary Care Provider [phone] Allergies No known active allergies Medications aspirin [...] hyperlipidemia 07/24/2022 Coronary artery disease invo lving [place] coronary artery of [place] heart without angina pectoris 06/11/2022 Assessment & Plan (11/30/2024 12:28 PM EST): The patient has a history of circumflex stenting in 2003 and right coronary artery stenting in the setting of an inferior OR in 2011. He has not had overt [...] Department Care Team Description 03/07/[address] [facility] - Main Lab [address] [place] [address] Fidecnio Burroughs MD Encounter for other general examination 03/01/2025 Lab Requisition [facility] Lab [address] [place] [address] Fidencio Burroughs MD Encounter for other general examination 03/01/2025 Lab Requisition [facility] Lab [address] [place] [address] Fidencio Burroughs MD Encounter for other general examination 02/26/2025 Lab Requisition [facility] Lab [address] [place] [address] Fidencio Burroughs MD Encounter for other general examination 02/25/2025 Lab Requisition [facility] Lab [address] [place] [address] Fidencio Burroughs MD Hematuria, unspecified 02/24/2025 Lab Requisition [facility] Lab [address] [place] [address] Fidencio Burroughs MD Encounter for other general examination 02/19/2025 Lab Requisition [facility] Lab [address] [place] [address] Fidencio Burroughs MD Encounter for other general examination 02/15/2025 Telephone [facility] Cardiology [address] [place] [address] Mg Candelario MD 02/10/[address] [place] [address] Mg Candelario MD FYI 01/25/2025 Lab Requisition [facility] Lab [address] [place] [address] Fidencio Burroughs MD Encounter for other general examination 01/19/2025 Lab Requisition [facility] Lab [address] [place] [address] Fidencio Burroughs MD Encounter for other general examination 01/17/[address] [facility] Lab [address] [place] [address] Fidencio Burroughs MD Encounter for other general examination 01/15/[address] [facility] Lab [address] [place] [phone] Fidencio Burroughs MD Encounter for other general examination 01/03/2025 Telephone [facility] [address] [place] [address] Mg Candelario MD Results 12/30/2024 Telephone [place] [address] [place] [address] Mg Candelario MD Leg Swelling (/) from Last 3 Months Social History Tobacco [...] Care Team (Late st Contact Info) Description 04/25/2025 2:10 PM EDT Office Visit [facility] [address] [place] [address] Shahid Ramos NP [address] [place] [address] [place] [address] Health Maintenance Due Date Last Done Comments [...] AM EST Encounter for other general examination from Last 3 Months Results * (ABNORMAL) Complete blood count (03/07/2025 5:15 AM EDT) Only the most recent of4 resultswithin the time period is included. WBC 7.3 4.8 - 10.8 K/mcL LAB HEMETOLOGY METHOD 03/07/2025 1:40 PM EDT [facility] RBC 3.70(L) 4.50 - 5.50 M/mcL LAB HEMETOLOGY METHOD 03/07/2025 1:40 PM EDT [facility] Hemoglobin 11.5(L) 13.5 - 17.5 g/dL LAB HEMETOLOGY [facility] Hematocrit 34.9(L) 42.0 - 54.0 % LAB HEMETOLOGY METHOD 03/07/2025 1[facility] MCV 93.8 79.0 - 98.0 FL LAB HEMETOLOGY METHOD 03/07/2025 1[facility]40 [facility] MCH 30.9 27.0 - 32.0 pcg LAB HEMETOLOGY METHOD 03/07/2025 1[facility] MCHC 33.0 32.0 - 37.0 g/dL LAB HEMETOLOGY METHOD 03/07/2025 1[facility] RDW 14.7 11.0 - 15.0 % LAB HEMETOLOGY METHOD 03/07/2025 1:40 [facility] Platelets 03/07/2025 1:40 PM [facility] Comment:Not measured. Unable to quantitate due to platelet clumping MPV 9.2 7.0 - 11.0 FL LAB HEMETOLOGY METHOD 03/07/2025 1[facility] NRBC 0.0 <1.0 % LAB HEMETOLOGY METHOD 03/07/2025 1:40 PM EDT [facility] NRBC Absolute 0.00 <0.10 K/mcL LAB HEMETOLOGY METHOD 03/07/2025 1:40 PM [facility] Blood Venous blood specimen / Unknown Venipuncture / Unknown 03/07/2025 5:15 AM EDT 03/07/2025 10:19 AM EDT us Fidencio Burroughs MD LAB BLOOD ORDERABLES Final Res ult [facility] [address] [place] [address], [place] [phone] * (ABNORMAL) Comprehensive metabolic panel (03/07/2025 5:15 AM EDT) Only the most recent of8 resultswithin the time period is included. Sodium 137 133 - 145 mmol/L LAB CHEMISTRY METHOD 03/07/2025 12:39 PM [facility] Potassium 3.8 3.5 - 5.5 mmol/L LAB CHEMISTRY METHOD 03/07/2025 12:39 PM [facility] Chloride 101 96 - 110 mmol/L LAB CHEMISTRY METHOD 03/07/2025 12:39 PM [facility] CO2 32 21 - 32 mmol/L LAB CHEMISTRY METHOD 03/07/2025 12:39 PM [facility] Anion Gap 4 3 - 11 LAB CHEMISTRY METHOD 03/07/2025 12:39 PM [facility] Glucose 77 70 - 100 mg/dL LAB CHEMISTRY METHOD 03/07/2025 12:39 PM [facility] BUN 14 5 - 25 mg/dL LAB CHEMISTRY METHOD 03/07/2025 12:39 PM [facility] Creatinine 0.51(L) 0.70 - 1.30 mg/dL LAB CHEMISTRY METHOD 03/07/2025 12:39 PM [facility] eGFR 99 >=60 mL/min/1. 73m2 LAB CHEMISTRY METHOD 03/07/2025 12:39 PM [facility] Comment:Calculation based on the??Chronic Kidney Disease Epidemiology Collaboration (CKD-EPI) equation refit??without adjustment for race. BUN/Creatinine Ratio 27.5 LAB CHEMISTRY METHOD 03/07/2025 12:39 PM [facility] Calcium 8.6 8.5 - 10.5 mg/dL LAB CHEMISTRY METHOD 03/07/2025 12:39 PM [facility] AST (SGOT) 32 10 - 42 unit/L LAB CHEMISTRY METHOD 03/07/2025 12:39 PM [facility] ALT (SGPT) 48 10 - 60 unit/L LAB CHEMISTRY METHOD 03/07/2025 12:39 PM [facility] Alkaline Phosphatase 116 42 - 121 unit/L LAB CHEMISTRY METHOD 03/07/2025 12:39 PM [facility] Total Protein 5.3(L) 6.0 - 8.0 g/dL LAB CHEMISTRY METHOD 03/07/2025 12:39 PM [facility] Albumin 2.8(L) 3.2 - 5.0 g/dL LAB CHEMISTRY METHOD 03/07/2025 12:39 PM [facility] Total Bilirubin 1.0 0.0 - 1.4 mg/dL LAB CHEMISTRY METHOD 03/07/2025 12:39 PM [facility] Blood Venous blood specimen / Unknown Venipuncture / Unknown 03/07/2025 5:15 AM EDT 03/07/2025 10:19 AM EDT us Fidencio Burroughs MD LAB BLOOD ORDERABLES Final Res ult [facility] [address] [place] [address], * (ABNORMAL) CBC auto differential (03/01/2025 5:29 AM EDT) Only the most recent of4 resultswithin the time period is included. [facility] WBC 8.8 4.8 - 10.8 K/mcL LAB HEMETOLOGY METHOD 03/01/2025 11:58 AM [facility] RBC 3.60(L) 4.50 - 5.50 M/mcL LAB HEMETOLOGY METHOD 03/01/2025 11:58 AM [facility] Hemoglobin 11.0(L) 13.5 - 17.5 g/dL LAB HEMETOLOGY METHOD 03/01/2025 11:58 AM [facility] Hematocrit 33.0(L) 42.0 - 54.0 % LAB HEMETOLOGY METHOD 03/01/2025 11:58 AM [facility] MCV 91.2 79.0 - 98.0 FL LAB HEMETOLOGY METHOD 03/01/2025 11:58 AM [facility] MCH 30.4 27.0 - 32.0 pcg LAB HEMETOLOGY METHOD 03/01/2025 11:58 AM [facility] MCHC 33.3 32.0 - 37.0 g/dL LAB HEMETOLOGY METHOD 03/01/2025 11:58 AM [facility] RDW 13.9 11.0 - 15.0 % LAB HEMETOLOGY METHOD 03/01/2025 11:58 AM [facility] Platelets 03/01/2025 11:58 AM [facility] Comment:Not measured. Unable to quantitate due to platelet clumping MPV 10.2 7.0 - 11.0 FL LAB HEMETOLOGY METHOD 03/01/2025 11:58 AM [facility] NRBC 0.0 <1.0 % LAB HEMETOLOGY METHOD 03/01/2025 11:58 AM [facility] NRBC Absolute 0.00 <0.10 K/mcL LAB HEMETOLOGY METHOD 03/01/2025 11:58 AM [facility] Neutrophils Relative 76.0 % LAB HEMETOLOGY METHOD 03/01/2025 11:58 AM [facility] Lymphocytes Relative 13.4 % LAB HEMETOLOGY METHOD 03/01/2025 11:58 AM [facility] Monocytes Relative 9.0 % LAB HEMETOLOGY METHOD 03/01/2025 11:58 AM [facility] Eosinophils Relative 1.1 % LAB HEMETOLOGY METHOD 03/01/2025 11:58 AM [facility] Basophils Relative 0.2 % LAB HEMETOLOGY METHOD 03/01/2025 11:58 AM [facility] Immature Granulocytes Relative 0.3 % LAB HEMETOLOGY METHOD 03/01/2025 11:58 AM [facility] Neutrophils Absolute 6.69 1.50 - 7.00 K/mcL LAB HEMETOLOGY METHOD 03/01/2025 11:58 AM [facility] Lymphocytes Absolute 1.18 1.00 - 5.00 K/mcL LAB HEMETOLOGY METHOD 03/01/2025 11:58 AM [facility] Monocytes Absolute 0.79 0.20 - 1.00 K/mcL LAB HEMETOLOGY METHOD 03/01/2025 11:58 AM [facility] Eosinophils Absolute 0.10 0.00 - 0.50 K/mcL LAB HEMETOLOGY METHOD 03/01/2025 11:58 AM [facility] Basophils Absolute 0.02 0.00 - 0.20 K/mcL LAB HEMETOLOGY METHOD 03/01/2025 11:58 AM EDT [facility] Immature Granulocytes Absolute 0.03 0.00 - 0.03 K/mcL LAB HEMETOLOGY METHOD 03/01/2025 11:58 AM EDT [facility] Blood Venous blood specimen / Unknown Venipuncture / Unknown 03/01/2025 5:29 AM EDT 03/01/2025 9:52 AM EDT us Fidencio Burroughs MD LAB BLOOD ORDERABLES Final Res ult [facility] [address] [place] [address], * (ABNORMAL) Culture wound with gram stain (03/01/2025 5:22 AM EDT) Culture, Wound Proteus mirabilis(A) BAUDILIO 03/09/2025 9:56 AM EDT [facility] Comment: The organism value for this result has been updated. These results have been appended to the previously preliminary verified report. This is an edited result. Previous organism was Gram negative bacilli on 03/02/2025 at 1315 EDT. Edited result: Previously reported as Proteus species on 03/03/2025 at 1152 EDT. Culture, Wound Enterococcus faecalis(A) BAUDILIO 03/09/2025 9:56 AM EDT [facility] Comment: The organism value for this result has been updated. These results have been appended to the previously preliminary verified report. This is an edited result. Previous organism was Streptococcus Gamma non hemolytic on 03/06/2025 at 0911 EDT. Culture, Wound Pseudomonas aeruginosa(A) BAUDILIO 03/09/2025 9:56 AM EDT [facility] Comment: The organism value for this result has been updated. These results have been appended to the previously preliminary verified report. This is an edited result. Previous organism was Gram negative bacilli on 03/07/2025 at 1012 EDT. Gram Stain Result Moderate Polymorphonuclear leukocytes 03/09/2025 9:56 AM EDT [facility] Gram Stain Result Few Epithelial cells 03/09/2025 9:56 AM EDT [facility] Gram Stain Result No organisms seen 03/09/2025 9:56 AM EDT [facility] Swab Penile structure / Unknown [...] ORD ERABLES Final Result Performing Organization Address [facility]/ZIP Co de Phone Number [facility] [address] [place] [address], [place] [phone] * (ABNORMAL) Culture fungal, other (03/01/2025 5:22 AM EDT) Culture, Fungus Lucrecia albicans/du bliniensis( A) 03/07/2025 12:41 PM EDT [facility] Comment: Edited result: Previously reported as Yeast on 03/07/2025 at 1047 EDT. Swab Penile structure / Unknown 03/01/2025 5:22 AM EDT 03/01/2025 10:41 AM EDT Fidencio Burroughs MD LAB MICROBIOLOGY - GENERAL ORD ERABLES Final Result Performing Organization Address [facility]/ZIP Co de Phone Number [facility] [address] [place] [address], [place] [phone] * (ABNORMAL) Urinalysis with reflex microscopic and culture (02/24/2025 6:00 PM EDT) Only the most recent of2 resultswithin the time period is included. [facility] Specific [place] Urine 1.023 1.003 - 1.030 LAB URINALYSIS - AUTOMATED METHOD 02/25/2025 12:09 PM EDT [facility] pH, Urine 6.0 5.0 - 8.0 pH LAB URINALYSIS - AUTOMATED METHOD 02/25/2025 12:09 PM EDT [facility] Leukocytes, Urine Large(A) Negative LAB URINALYSIS - AUTOMATED METHOD 02/25/2025 12:09 PM EDT [facility] Nitrite, Urine Negative Negative LAB URINALYSIS - AUTOMATED METHOD 02/25/2025 12:09 PM EDT [facility] Protein, Urine 30(A) <=Trace mg/dL LAB URINALYSIS - AUTOMATED METHOD 02/25/2025 12:09 PM [facility] Glucose, Urine Negative Negative mg/dL LAB URINALYSIS - AUTOMATED METHOD 02/25/2025 12:09 PM [facility] Ketones, Urine Negative Negative mg/dL LAB URINALYSIS - AUTOMATED METHOD 02/25/2025 12:09 PM [facility] Urobilinogen , Urine 1.0 0.2 - 1.0 mg/dL LAB URINALYSIS - AUTOMATED METHOD 02/25/2025 12:09 PM [facility] Bilirubin, Urine Negative Negative LAB URINALYSIS - AUTOMATED METHOD 02/25/2025 12:09 PM [facility] Blood, Urine Large(A) Negative LAB URINALYSIS - AUTOMATED METHOD 02/25/2025 12:09 PM [facility] RBC, Urine 90.1(H) 0 - 4 /HPF LAB URINALYSIS - AUTOMATED METHOD 02/25/2025 12:09 PM [facility] WBC, Urine 251.6(H) 0 - 4 /HPF LAB URINALYSIS - AUTOMATED METHOD 02/25/2025 12:09 PM [facility] Squamous Epithelial, Urine 3 0 - 60 /LPF LAB URINALYSIS - AUTOMATED METHOD 02/25/2025 12:09 PM [facility] Bacteria, Urine Negative Negative /HPF LAB URINALYSIS - AUTOMATED METHOD 02/25/2025 12:09 PM [facility] Hyaline Casts, Urine 2.4 0 - 3 /LPF LAB URINALYSIS - AUTOMATED METHOD 02/25/2025 12:09 PM [facility] Yeast, Urine Present(A) None /HPF LAB URINALYSIS - AUTOMATED METHOD 02/25/2025 12:09 PM [facility] Urine Indwelling urinary catheter / Unknown 02/24/2025 6:00 PM EDT 02/25/2025 11:30 AM EDT Fidencio Burroughs MD LAB URINE ORDERABLES Final Res ult Performing Organization Address [facility]/ZIP Co de Phone Number [facility] [address] [place] [address], [place] [phone] * Mckeon urine culture tube (02/24/2025 6:00 PM EDT) Only the most recent of2 resultswithin the time period is included. Extra Tube Hold for add-ons. 02/25/2025 1:01 PM EDT [facility] Comment:Auto resulted. Urine Indwelling urinary catheter / Unknown 02/24/2025 6:00 PM EDT 02/25/2025 11:30 AM EDT Fidencio Burroughs MD LAB URINE ORDERABLES Final Res ult Performing Organization Address [facility] Co de Phone Number [facility] [address] [place] [address], [place] [phone] * (ABNORMAL) Culture urine (02/24/2025 6:00 PM EDT) Only the most recent of2 resultswithin the time period is included. Culture, Urine 10,000-49,0 00 CFU/mL Lucrecia albicans/du bliniensis( A) 02/27/2025 12:30 PM EDT [facility] Comment: Edited result: Previously reported as Yeast on 02/26/2025 at 1030 EDT. Urine Indwelling urinary catheter / Unknown 02/24/2025 6:00 PM EDT 02/25/2025 12:09 PM EDT us Fidencio Burroughs MD LAB MICROBIOLOGY - GENERAL ORD ERABLES Final Result Performing Organization Address City/[facility]/ZIP Co de Phone Number [facility] [address] [place] [address], [place] [phone] * Magnesium (02/19/2025 5:42 AM EDT) Only the most recent of2 resultswithin the time period is included. Magnesium 2.4 1.9 - 2.6 mg/dL LAB CHEMISTRY METHOD 02/19/2025 12:23 PM EDT [facility] Blood Venous blood specimen / Unknown Venipuncture / Unknown 02/19/2025 5:42 AM EDT 02/19/2025 9:50 AM EDT us Fidencio Burroughs MD LAB BLOOD ORDERABLES Final Res ult [facility] ([facility] [address] [place] [address], [place] [phone] from Last 3 Months Insurance [employer] Care Teams Director Food And Beverage Relationship Specialty Start Date End Date Cj Barber DO [address] [place] [phone] PCP - General 04/21/13
--- OUTSIDE RECORDS SUMMARY | 2025-03-29 16:30 | XMS_ITS | Encounter Summary ---
Author Organization [facility] Address [address] [place] [address] Care Team Providers Care Consumer Relations Complaint Clerk Name Role Phone Cj Barber DO Primary Care Provider [phone] Encounter Details Date Type Department Care Team (Late Contact Info) Description 12/17/2024 Lab Requisition [facility] - Main Lab [address] [facility] [place] [phone] Horace Gu MD [address] [facility] [address] [place] [phone] Urinary tract infection, site not specified Social [...] Description 04/25/2025 2:10 PM EDT Office Visit [facility] Center [address] [place] [address] Shahid Ramos NP [address] [place] [address] [address] [place], [place] [phone] documented as of this encounter Procedures Procedure [...] Final Result [facility] [address] [place] [address], [place] [phone] documented in this encounter Visit Diagnoses Diagnosis Urinary tract infection, site not specified documented in this encounter Care Teams Consumer Relations Complaint Clerk Relationship Specialty Start Date End Date Cj Barber DO [address] [place] [phone] PCP - General 04/21/13 documented as of this encounter
--- OUTSIDE RECORDS SUMMARY | 2025-03-29 16:30 | XMS_ITS | Encounter Summary ---
Author Organization [facility] Address [address] [place] [address] Care Team Providers Care Data Virtualization Consultant Name Role Phone Cj Barber DO Primary Care Provider [phone] Encounter Details Date Type Department Care Team (Late Contact Info) Description 03/01/[address] [facility] - Main Lab [address] [facility] [place] [address] Fidencio Burroughs MD [address] [place] [phone] Encounter for other general examination Social History [...] Description 04/25/2025 2:10 PM EDT Office Visit [facility] [address] [place] [address] Shahid Ramos NP [address] [place] [address] documented as of this encounter Procedures Procedure [...] CBC auto differential (03/01/2025 5:29 AM EDT) [facility] WBC 8.8 4.8 - 10.8 K/mcL LAB HEMETOLOGY METHOD 03/01/2025 11:58 AM [facility] RBC 3.60(L) 4.50 - 5.50 M/mcL LAB HEMETOLOGY METHOD 03/01/2025 11:58 AM [facility] Hemoglobin 11.0(L) 13.5 - 17.5 g/dL LAB HEMETOLOGY METHOD 03/01/2025 11:58 AM [facility] Hematocrit 33.0(L) 42.0 - 54.0 % LAB HEMETOLOGY METHOD 03/01/2025 11:58 AM [facility] MCV 91.2 79.0 - 98.0 FL LAB HEMETOLOGY METHOD 03/01/2025 11:58 AM [facility] MCH 30.4 27.0 - 32.0 pcg LAB HEMETOLOGY METHOD 03/01/2025 11:58 AM [facility] MCHC 33.3 32.0 - [...] AM [facility] Eosinophils Absolute 0.10 0.00 - 0.50 K/mcL LAB HEMETOLOGY METHOD 03/01/2025 11:58 AM EDT [facility] Basophils Absolute 0.02 0.00 - 0.20 K/[facility] LAB HEMETOLOGY METHOD 03/01/2025 11:58 AM EDT [facility] Immature Granulocytes Absolute 0.03 0.00 - 0.03 K/[facility] LAB HEMETOLOGY METHOD 03/01/2025 11:58 AM EDT [facility] Blood Venous blood specimen / Unknown Venipuncture / Unknown 03/01/2025 5:29 AM EDT 03/01/2025 9:52 AM EDT us Fidencio Burroughs MD LAB BLOOD ORDERABLES Final Res ult [facility] [address] [place] [address], [place] [phone] * (ABNORMAL) Comprehensive metabolic panel (03/01/2025 5:29 AM EDT) Sodium 137 133 - 145 mmol/L LAB CHEMISTRY METHOD 03/01/2025 12:08 PM [facility] Potassium 4.1 3.5 - 5.5 mmol/L LAB CHEMISTRY METHOD 03/01/2025 12:08 PM [facility] Chloride 101 96 - 110 mmol/L LAB CHEMISTRY METHOD 03/01/2025 12:08 PM [facility] CO2 30 21 - 32 mmol/L LAB CHEMISTRY METHOD 03/01/2025 12:08 PM [facility] Anion Gap 6 3 - 11 LAB CHEMISTRY METHOD 03/01/2025 12:08 PM [facility] Glucose 82 70 - 100 mg/dL LAB CHEMISTRY METHOD 03/01/2025 12:08 PM [facility] BUN 15 5 - 25 mg/dL LAB CHEMISTRY METHOD 03/01/2025 12:08 PM [facility] Creatinine 0.41(L) 0.70 - 1.30 mg/dL LAB CHEMISTRY METHOD 03/01/2025 12:08 PM [facility] eGFR 106 >=60 mL/min/1. 73m2 LAB CHEMISTRY METHOD 03/01/2025 12:08 PM [facility] Comment:Calculation based on the??Chronic Kidney Disease Epidemiology Collaboration (CKD-EPI) equation refit??without adjustment for race. BUN/Creatinine Ratio 36.6 LAB CHEMISTRY METHOD 03/01/2025 12:08 PM [facility] Calcium 8.7 8.5 - 10.5 mg/dL LAB CHEMISTRY METHOD 03/01/2025 12:08 PM [facility] AST (SGOT) 37 10 - 42 unit/L LAB CHEMISTRY METHOD 03/01/2025 12:08 PM [facility] ALT (SGPT) 64(H) 10 - 60 unit/L LAB CHEMISTRY METHOD 03/01/2025 12:08 PM [facility] Alkaline Phosphatase 105 42 - 121 unit/L LAB CHEMISTRY METHOD 03/01/2025 12:08 PM [facility] Total Protein 5.1(L) 6.0 - 8.0 g/dL LAB CHEMISTRY METHOD 03/01/2025 12:08 PM [facility] Albumin 2.7(L) 3.2 - 5.0 g/dL LAB CHEMISTRY METHOD 03/01/2025 12:08 PM [facility] Total Bilirubin 1.1 0.0 - 1.4 mg/dL LAB CHEMISTRY METHOD 03/01/2025 12:08 PM [facility] Blood Venous blood specimen / Unknown Venipuncture / Unknown 03/01/2025 5:29 AM EDT 03/01/2025 9:52 AM EDT us Fidencio Burroughs MD LAB BLOOD ORDERABLES Final Res ult [facility] [address] [place] [address], documented in this encounter Visit Diagnoses Diagnosis Encounter for other general examination documented in this encounter Care Teams Data Virtualization Consultant Relationship Specialty Start Date End Date Cj Barber DO [address] [place] [phone] PCP - General 04/21/13 documented as of this encounter
--- OUTSIDE RECORDS SUMMARY | 2025-03-29 16:30 | XMS_ITS | Encounter Summary ---
Author Organization [facility] Address [address] [place] [address] Care Team Providers Care Pan Operator Name Role Phone Cj Barber DO Primary Care Provider [phone] Encounter Details Date Type Department Care Team (Late Contact Info) Description 01/19/2025 Lab Requisition [facility] - Main Lab 299 [facility]ly [facility] [place] [address] Fidencio Burroughs MD [address] [place] [address] Encounter for other general examination Social History [...] Description 04/25/2025 2:10 PM EDT Office Visit [facility] [address] [place] [address] Shahid Ramos NP [address] [place] [address] documented as of this encounter Procedures Procedure [...] K/mcL LAB HEMETOLOGY METHOD 01/19/2025 12:47 PM [facility] RBC 4.50 4.50 - 5.50 M/mcL LAB HEMETOLOGY METHOD 01/19/2025 12:47 PM [facility] Hemoglobin 13.9 13.5 - 17.5 g/dL LAB HEMETOLOGY METHOD 01/19/2025 12:47 PM [facility] Hematocrit 42.6 42.0 - 54.0 % LAB HEMETOLOGY METHOD 01/19/2025 12:47 PM [facility] MCV 94.0 79.0 - 98.0 FL LAB HEMETOLOGY METHOD 01/19/2025 12:47 PM [facility] MCH 30.7 27.0 - 32.0 pcg LAB HEMETOLOGY METHOD 01/19/2025 12:47 PM [facility] MCHC 32.6 32.0 - 37.0 g/dL LAB HEMETOLOGY METHOD 01/19/2025 12:47 PM [facility] RDW 13.0 11.0 - 15.0 % LAB HEMETOLOGY METHOD 01/19/2025 12:47 PM [facility] Platelets 01/19/2025 12:47 PM [facility] Comment:Not measured. Unable to quantitate due to platelet clumping MPV 11.3(H) 7.0 - 11.0 FL LAB HEMETOLOGY METHOD 01/19/2025 12:47 PM [facility] NRBC 0.0 <1.0 % LAB HEMETOLOGY METHOD 01/19/2025 12:47 PM EST [facility] NRBC Absolute 0.00 <0.10 K/mcL LAB HEMETOLOGY METHOD 01/19/2025 12:47 PM [facility] Blood Venous blood specimen / Unknown Venipuncture / Unknown 01/19/2025 5:25 AM EST 01/19/2025 10:00 AM EST us Fidencio Burroughs MD LAB BLOOD ORDERABLES Final Res ult [facility] [address] [place] [address], [place] [phone] * (ABNORMAL) Comprehensive metabolic panel (01/19/2025 5:25 AM EST) Sodium 137 133 - 145 mmol/L LAB CHEMISTRY METHOD 01/19/2025 11:35 AM [facility] Potassium 4.2 3.5 - 5.5 mmol/L LAB CHEMISTRY METHOD 01/19/2025 11:35 AM [facility] Chloride 103 96 - 110 mmol/L LAB CHEMISTRY METHOD 01/19/2025 11:35 AM [facility] CO2 24 21 - 32 mmol/L LAB CHEMISTRY METHOD 01/19/2025 11:35 AM [facility] Anion Gap 10 3 - 11 LAB CHEMISTRY METHOD 01/19/2025 11:35 AM [facility] Glucose 84 70 - 100 mg/dL LAB CHEMISTRY METHOD 01/19/2025 11:35 AM [facility] BUN 9 5 - 25 mg/dL LAB CHEMISTRY METHOD 01/19/2025 11:35 AM [facility] Creatinine 0.45(L) 0.70 - 1.30 mg/dL LAB CHEMISTRY METHOD 01/19/2025 11:35 AM [facility] eGFR 103 >=60 mL/min/1. 73m2 LAB CHEMISTRY METHOD 01/19/2025 11:35 AM [facility] Comment:Calculation based on the??Chronic Kidney Disease Epidemiology Collaboration (CKD-EPI) equation refit??without adjustment for race. BUN/Creatinine Ratio 20.0 LAB CHEMISTRY METHOD 01/19/2025 11:35 AM [facility] Calcium 8.9 8.5 - 10.5 mg/dL LAB CHEMISTRY METHOD 01/19/2025 11:35 AM [facility] AST (SGOT) 36 10 - 42 unit/L LAB CHEMISTRY METHOD 01/19/2025 11:35 AM [facility] ALT (SGPT) 44 10 - 60 unit/L LAB CHEMISTRY METHOD 01/19/2025 11:35 AM [facility] Alkaline Phosphatase 114 42 - 121 unit/L LAB CHEMISTRY METHOD 01/19/2025 11:35 AM [facility] Total Protein 6.2 6.0 - 8.0 g/dL LAB CHEMISTRY METHOD 01/19/2025 11:35 AM [facility] Albumin 3.1(L) 3.2 - 5.0 g/dL LAB CHEMISTRY METHOD 01/19/2025 11:35 AM [facility] Total Bilirubin 0.7 0.0 - 1.4 mg/dL LAB CHEMISTRY METHOD 01/19/2025 11:35 AM [facility] Blood Venous blood specimen / Unknown Venipuncture / Unknown 01/19/2025 5:25 AM EST 01/19/2025 10:00 AM EST us Fidencio Burroughs MD LAB BLOOD ORDERABLES Final Res ult [facility] [address] [place] [address], [place] [phone] documented in this encounter Visit Diagnoses Diagnosis Encounter for other general examination documented in this encounter Care Teams Pan Operator Relationship Specialty Start Date End Date Cj Barber DO [address] [place] [phone] PCP - General 04/21/13 documented as of this encounter
--- OUTSIDE RECORDS SUMMARY | 2025-03-29 16:30 | XMS_ITS | Encounter Summary ---
Author Organization [facility] Address [address] [place] [address] Care Team Providers Care Retail Grocer Name Role Phone Cj Barber DO Primary Care Provider [phone] Encounter Details Date Type Department Care Team (Late Contact Info) Description 02/19/2025 Lab Requisition [facility] - Main Lab 299 [facility] [place] [address] Fidencio Burroughs MD [address] [place] [phone] Encounter for other general examination Social History [...] Description 04/25/2025 2:10 PM EDT Office Visit [facility]iology Associates [facility] [address] [place] [address] Shahid Ramos NP [address] [place] [address] documented as of this encounter Procedures Procedure [...] CBC auto differential (02/19/2025 5:42 AM EDT) [facility] WBC 10.5 4.8 - 10.8 K/mcL LAB HEMETOLOGY METHOD 02/19/2025 12:54 PM EDT [facility] RBC 5.10 4.50 - 5.50 M/mcL LAB HEMETOLOGY METHOD 02/19/2025 12:54 PM EDT [facility] Hemoglobin 15.6 13.5 - 17.5 g/dL LAB HEMETOLOGY METHOD 02/19/2025 12:54 PM EDT [facility] Hematocrit 47.5 42.0 - 54.0 % LAB HEMETOLOGY METHOD 02/19/2025 12:54 PM EDT [facility] MCV 92.4 79.0 - 98.0 FL LAB HEMETOLOGY METHOD 02/19/2025 12:54 PM EDT [facility] MCH 30.4 27.0 - 32.0 pcg LAB HEMETOLOGY METHOD 02/19/2025 12:54 PM EDT [facility] MCHC 32.8 32.0 - 37.0 g/dL LAB HEMETOLOGY METHOD 02/19/2025 12:54 PM EDT [facility] RDW 12.8 11.0 - 15.0 % LAB HEMETOLOGY METHOD 02/19/2025 12:54 PM EDT [facility] Platelets 02/19/2025 12:54 PM EDT [facility] Comment:Not measured. Platel ets appear adequate but clumped Suggest drawing blue top tube with CBC MPV 10.7 7.0 - 11.0 FL LAB HEMETOLOGY METHOD 02/19[facility]2025 [facility] NRBC 0.0 <1.0 % LAB HEMETOLOGY METHOD 02/19/2025 12:54 PM EDT [facility] NRBC Absolute 0.00 <0.10 K/mcL LAB HEMETOLOGY METHOD 02/19/2025 12:54 PM [facility] Neutrophils Relative 83.5 % LAB HEMETOLOGY METHOD 02/19/2025 12:54 PM [facility] Lymphocytes Relative 10.5 % LAB HEMETOLOGY METHOD 02/19/2025 12:54 PM [facility] Monocytes Relative 5.4 % LAB HEMETOLOGY METHOD 02/19/2025 12:54 PM [facility] Eosinophils Relative 0.0 % LAB HEMETOLOGY METHOD 02/19/2025 12:54 PM [facility] Basophils Relative 0.1 % LAB HEMETOLOGY METHOD 02/19/2025 12:54 PM [facility] Immature Granulocytes Relative 0.5 % LAB HEMETOLOGY METHOD 02/19/2025 12:54 PM [facility] Neutrophils Absolute 8.77(H) 1.50 - 7.00 K/mcL LAB HEMETOLOGY METHOD 02/19/2025 12:54 [facility] Lymphocytes Absolute 1.10 1.00 - 5.00 K/mcL LAB HEMETOLOGY METHOD 02/19/2025 12:54 PM [facility] Monocytes Absolute 0.57 0.20 - 1.00 K/mcL LAB HEMETOLOGY METHOD 02/19/2025 12:54 [facility] Eosinophils Absolute 0.00 0.00 - 0.50 K/[facility] LAB HEMETOLOGY METHOD 02/19/2025 12:54 PM EDT [facility] Basophils Absolute 0.01 0.00 - 0.20 K/[facility] LAB HEMETOLOGY METHOD 02/19/2025 12:54 PM EDT [facility] Immature Granulocytes Absolute 0.05(H) 0.00 - 0.03 K/[facility] LAB HEMETOLOGY METHOD 02/19/2025 12:54 PM EDT [facility] Blood Venous blood specimen / Unknown Venipuncture / Unknown 02/19/2025 5:42 AM EDT 02/19/2025 9:50 AM EDT Fidencio Burroughs MD LAB BLOOD ORDERABLES Final Res ult Performing Organization Address City/[facility]/ZIP Co de Phone Number [facility] [address] [place] [address], [place] [phone] * Magnesium (02/19/2025 5:42 AM EDT) Pathologist [facility] Magnesium 2.4 1.9 - 2.6 mg/dL LAB CHEMISTRY METHOD 02/19/2025 12:23 PM EDT [facility] Blood Venous blood specimen / Unknown Venipuncture / Unknown 02/19/2025 5:42 AM EDT 02/19/2025 9:50 AM EDT Fidencio Burroughs MD LAB BLOOD ORDERABLES Final Res ult [facility] [address] [place] [address], [place] [phone] * (ABNORMAL) Comprehensive metabolic panel (02/19/2025 5:42 AM EDT) Sodium 131(L) 133 - 145 mmol/L LAB CHEMISTRY METHOD 02/19/2025 12:41 PM [facility] Potassium 4.5 3.5 - 5.5 mmol/L LAB CHEMISTRY METHOD 02/19/2025 12:41 PM [facility] Chloride 94(L) 96 - 110 mmol/L LAB CHEMISTRY METHOD 02/19/2025 12:41 PM [facility] CO2 29 21 - 32 mmol/L LAB CHEMISTRY METHOD 02/19/2025 12:41 PM [facility] Anion Gap 8 3 - 11 LAB CHEMISTRY METHOD 02/19/2025 12:41 PM [facility] Glucose 61(L) 70 - 100 mg/dL LAB CHEMISTRY METHOD 02/19/2025 12:41 PM [facility] BUN 23 5 - 25 mg/dL LAB CHEMISTRY METHOD 02/19/2025 12:41 PM [facility] Creatinine 0.70 0.70 - 1.30 mg/dL LAB CHEMISTRY METHOD 02/19/2025 12:41 PM [facility] eGFR 90 >=60 mL/min/1. 73m2 LAB CHEMISTRY METHOD 02/19/2025 12:41 PM [facility] Comment:Calculation based on the??Chronic Kidney Disease Epidemiology Collaboration (CKD-EPI) equation refit??without adjustment for race. BUN/Creatinine Ratio 32.9 LAB CHEMISTRY METHOD 02/19/2025 12:41 PM [facility] Calcium 9.1 8.5 - 10.5 mg/dL LAB CHEMISTRY METHOD 02/19/2025 12:41 PM [facility] AST (SGOT) 31 10 - 42 unit/L LAB CHEMISTRY METHOD 02/19/2025 12:41 PM [facility] ALT (SGPT) 90(H) 10 - 60 unit/L LAB CHEMISTRY METHOD 02/19/2025 12:41 PM [facility] Alkaline Phosphatase 127(H) 42 - 121 unit/L LAB CHEMISTRY METHOD 02/19/2025 12:41 PM EDT [facility] Total Protein 6.2 6.0 - 8.0 g/dL LAB CHEMISTRY METHOD 02/19/2025 12:41 PM EDT [facility] Albumin 3.3 3.2 - 5.0 g/dL LAB CHEMISTRY METHOD 02/19/2025 12:41 PM EDT [facility] Total Bilirubin 0.7 0.0 - 1.4 mg/dL LAB CHEMISTRY METHOD 02/19/2025 12:41 PM EDT [facility] Blood Venous blood specimen / Unknown Venipuncture / Unknown 02/19/2025 5:42 AM EDT 02/19/2025 9:50 AM EDT us Fidencio Burroughs MD LAB BLOOD ORDERABLES Final Res ult [facility] [address] [place] [address], [place] [phone] documented in this encounter Visit Diagnoses Diagnosis Encounter for other general examination documented in this encounter Care Teams Retail Grocer Relationship Specialty Start Date End Date Cj Barber DO [address] [place] [phone] PCP - General 04/21/13 documented as of this encounter
--- OUTSIDE RECORDS SUMMARY | 2025-03-29 16:30 | XMS_ITS | Encounter Summary ---
Author Organization [facility] Address [address] [place] [address] Care Team Providers Care Nurse Epidemiologist Name Role Phone Cj Barber DO Primary Care Provider [phone] Encounter Details Date Type Department Care Team (Late Contact Info) Description 02/25/2025 Lab Requisition [facility] - Main Lab [address] [facility] [place] [address] Fidencio Burroughs MD [address] [place] [address] Hematuria, unspecified Social History Tobacco Use Types [...] Description 04/25/2025 2:10 PM EDT Office Visit [facility] Associates [facility] [address] [place] [address] Shahid Ramos NP [address] [place] [address] [address] [place] [address] documented as of this encounter Procedures Procedure [...] (ABNORMAL) Culture urine (02/24/2025 6:00 PM EDT) Culture, Urine 10,000-49,0 00 CFU/mL Lucrecia albicans/du bliniensis( A) 02/27/2025 12:30 PM EDT [facility] Comment: Edited result: Previously reported as Yeast on 02/26/2025 at 1030 EDT. Urine Indwelling urinary catheter / Unknown 02/24/2025 6:00 PM EDT 02/25/2025 12:09 PM EDT us Fidencio Burroughs MD LAB MICROBIOLOGY - GENERAL ORD ERABLES Final Result [facility] [address] [place] [address], [place] [phone] * (ABNORMAL) Urinalysis with reflex microscopic and culture (02/24/2025 6:00 PM EDT) Pathologist [facility] Specific [place] Urine 1.023 1.003 - 1.030 LAB URINALYSIS - AUTOMATED METHOD 02/25/2025 12:09 PM EDT [facility] pH, Urine 6.0 5.0 - 8.0 pH LAB URINALYSIS - AUTOMATED METHOD 02/25/2025 12:09 PM EDT [facility] Leukocytes, Urine Large(A) Negative LAB URINALYSIS - AUTOMATED METHOD 02/25/2025 12:09 PM EDT [facility] Nitrite, Urine Negative Negative LAB URINALYSIS - AUTOMATED METHOD 02/25/2025 12:09 PM [facility] Protein, Urine 30(A) <=Trace mg/dL LAB URINALYSIS - AUTOMATED METHOD 02/25/2025 12:09 PM [facility] Glucose, Urine Negative Negative mg/dL LAB URINALYSIS - AUTOMATED METHOD 02/25/2025 12:09 PM [facility] Ketones, Urine Negative Negative mg/dL LAB URINALYSIS - AUTOMATED METHOD 02/25/2025 12:09 PM [facility] Urobilinogen , Urine 1.0 0.2 - 1.0 mg/dL LAB URINALYSIS - AUTOMATED METHOD 02/25/2025 12:09 PM [facility] Bilirubin, Urine Negative Negative LAB URINALYSIS - AUTOMATED METHOD 02/25/2025 12:09 PM [facility] Blood, Urine Large(A) Negative LAB URINALYSIS - AUTOMATED METHOD 02/25/2025 12:09 PM [facility] RBC, Urine 90.1(H) 0 - 4 /HPF LAB URINALYSIS - AUTOMATED METHOD 02/25/2025 12:09 PM [facility] WBC, Urine 251.6(H) 0 - 4 /HPF LAB URINALYSIS - AUTOMATED METHOD 02/25/2025 12:09 PM [facility] Squamous Epithelial, Urine 3 0 - 60 /LPF LAB URINALYSIS - AUTOMATED METHOD 02/25/2025 12:09 PM [facility] Bacteria, Urine Negative Negative /HPF LAB URINALYSIS - AUTOMATED METHOD 02/25/2025 12:09 PM [facility] Hyaline Casts, Urine 2.4 0 - 3 /LPF LAB URINALYSIS - AUTOMATED METHOD 02/25/2025 12:09 PM [facility] Yeast, Urine Present(A) None /HPF LAB URINALYSIS - AUTOMATED METHOD 02/25/2025 12:09 PM EDT [facility] Urine Indwelling urinary catheter / Unknown 02/24/2025 6:00 PM EDT 02/25/2025 11:30 AM EDT us Fidencio Burroughs MD LAB URINE ORDERABLES Final Res ult Performing Organization Address [facility]/ZIP Co de Phone Number [facility] [address] [place] [address], [place] [phone] * Mckeon urine culture tube (02/24/2025 6:00 PM EDT) Extra Tube Hold for add-ons. 02/25/2025 1:01 PM EDT [facility] Comment:Auto resulted. Urine Indwelling urinary catheter / Unknown 02/24/2025 6:00 PM EDT 02/25/2025 11:30 AM EDT us Fidencio Burroughs MD LAB URINE ORDERABLES Final Res ult Performing Organization Address [facility] Co de Phone Number [facility] [address] [place] [address], [place] [phone] documented in this encounter Visit Diagnoses Diagnosis Hematuria, unspecified documented in this encounter Care Teams Nurse Epidemiologist Relationship Specialty Start Date End Date Cj Barber DO [address] [place] [phone] PCP - General 04/21/13 documented as of this encounter
== END 2025-03-29 15:45 | disposition home or self-care (01) ==
LOC: HO.HVS 15:19
PROVIDERS: PCP Internal Medicine; Visit Provider Surgery Vascular Surgery
DX: I82.509 Chronic embolism and thrombosis of unspecified deep veins of unspecified lower extremity (principal)
CPT/HCPCS: 99204

== ENCOUNTER → 2025-03-29 15:18 | Outpatient (BNVA) | payer MEDICARE, SELFPAY | PROVIDERS: PCP Internal Medicine; Visit Provider Surgery Vascular Surgery | DX: I82.509 Chronic embolism and thrombosis of unspecified deep veins of unspecified lower extremity (principal) | CPT/HCPCS: 99202 ==

== ENCOUNTER 2025-05-13 11:27 | Outpatient (AMB) | payer MEDICARE, SELFPAY ==
[2025-05-13 11:29] VITALS: BP 122/74; PULSE 67; O2SAT 96; BMI 27.4
--- NOTE | 2025-05-13 11:29 | MHC.PC.OV ---
Vital Signs 05/13/25 11:29 Height 5 ft 4 in Weight 159 lb 6 oz BMI 27.4 BP 122/74 Blood Pressure Location Rt brachial Position Sitting Pulse 67 Pulse Source Pulse Oximeter Pulse Oximetry (%) 96 Oxygen Delivery Method Room Air Intake Visit Reasons: Discharged from [facility] – [place] Intake Note: Visit Reason: TCM Intake Note: Patient is here for hospital discharge follow up. Patient was discharged from Customer Account Coordinator Required: No Measurement Department Chief Clerk: Not Required per policy Accompanied by: Self / Same As Patient Allergies No Known Allergies (No Known Allergies*) Allergy (Verified 05/13/25 15:50) Medication List - Last Reconciled 05/13/25 by Haritha Ni PA-C aspirin 81 mg PO DAILY atorvastatin 80 mg PO BEDTIME clopidogrel (Plavix) 75 mg PO DAILY clotrimazole 1% 1 appl topical BID isosorbide mononitrate ER 30 mg PO DAILY metoprolol succinate ER 25 mg PO DAILY nitroglycerin 0.4 mg sublingual Q5M PRN timolol maleate 0.5% 1 drp ophthalmic (eye) DAILY warfarin 5 mg (5 x 1 mg) PO DAILY 90 days Tobacco use date assessed: 05/13/25 Fall risk assessment: 1 Fall in past year Last assessed Fall Risk: 05/13/25 Dental Screening Dental Screen Date: 05/13/25 Did you have a dental visit in the last 12 months?: No Did you have a dental problem in the last 6 months where you did not have access to dental care?: No Was dental information given to patient?: Patient declined HPI TCM TCM Information Date of Discharge 05/01/25 Discharged From Other Interactive Contact Date (Reference documentation from this date) 05/04/25 HPI Comments History of Present Illness Details Patient presents to the office for a TCM visit. Date of admission: 04/26/2025 Date of discharge: 05/01/2024 This is a Follow-up from admission at [facility] HPI: The patient is an 84-year-old male presenting for a discharge follow-up after hospitalization due to urinary retention and gross hematuria. The patient has a history of a massively enlarged prostate, approximately 175 cubic centimeters, leading to urinary retention. He was admitted to [facility] in early April 2025 due to significant bleeding causing a blockage and severe discomfort. The patient underwent multiple catheter flushes and was hospitalized for five days. The patient has a history of coronary artery disease, hyperlipidemia, hypertension, atrial fibrillation, and a pulmonary embolism in December 2024. He is currently on warfarin therapy. The patient has experienced multiple hospitalizations for bleeding and catheter blockage issues, impacting his mobility and overall well-being. He was previously able to walk without a walker when accompanied but now feels regressed due to being bedridden. The patient is scheduled for a robotic simple prostatectomy on June 09, 2025, after a previous cancellation due to a pulmonary embolism and anticoagulation issues. Social History - Family status: Lives with spouse and 57-year-old child - Functional status: Uses a walker, no recent falls since returning home Hospital Course/Discharge Summary: Patient was seen due to hematuria from traumatic Nolan placement in setting of anticoagulation. Seen by Urology while inpatient, no acute intervention indicated at that time. Plan is for outpatient radical prostatectomy May 2025. Patient was discharged with Nolan catheter. He is currently on aspirin and warfarin for CAD which he resumed. INR is being monitored. Before patient has surgery they would like patient to be bridge to Lovenox Discharged to/Current Location: Home Lives with: and son Diagnosis: Gross hematuria due to traumatic Nolan placement in setting of anticoagulation which has resolved; BPH with urinary obstruction; Procedures performed: Patient had a three-way catheter while he was inpatient New medications: Patient was started on a Lovenox bridge as INR was subtherapeutic. INR has started to increase but will need continued follow-up outpatient with primary care until reach his goal of 2-3, will be discharged with Lovenox 70 mg b.i.d.. Discontinued medications: No medications were discontinued at this time. Change medications/dosing: No doses were change. Pending labs: No pending labs Pending diagnostic test: No pending diagnostic test Any Follow-up Labs required? INR checks Any Follow-up Diagnostic test required? No follow-up diagnostic test required How are you feeling? Patient reports he feels much better although would like to be discharged from VNA services so he is able to attend PT due to he has physical deconditioning and would like to strengthen himself with PT and unable to do this while in VNA services requesting to be discharged and at bedside agrees Are you in any pain or discomfort? Patient denies being in any pain Do you have any questions about your condition or discharge instructions? All questions were answered Were you able to get your medications filled? Patient able to fill all his medications Do you have any questions about your medications? Patient does not have any questions about his medication Any referrals required? No referrals are required at this time Were you able to schedule your follow-up appointment? Patient has seen Cardiology and Urology since discharge and has prostatectomy scheduled for next month If home health was ordered, have they contact you? Patient not interested in home health aide at this time. Had it in the past. Any outpatient services, if so, are you scheduled? Patient is currently receiving VNA services and would like this this continued so he is able to attend the [facility] and PT services/therapy Are there any additional resources like transportation you might need during her recovery? - VNA? Currently in place although patient no longer interested in VNA services - AIRPORT OPERATIONS DUTY MANAGER? Patient not interested in AIRPORT OPERATIONS DUTY MANAGER service - Meals on wheels? Patient has a who cooks in the not interested in meals on wheels at this time Educational need/resources: What support system do you have? Patient has and son who live at home with the patient [facility] Medical History (Updated 05/13/25 @ 16:05 by Haritha Ni PA-C) Gross hematuria Urinary retention Enlarged prostate Pre-op evaluation Lower extremity weakness Physical deconditioning Muscular deconditioning Bilateral arm weakness DVT (deep venous thrombosis) On Coumadin for atrial fibrillation Chronic indwelling Nolan catheter Weakness Hospital discharge follow-up Dyspnea on exertion Vitamin D deficiency Vasovagal syncope Elevated PSA GERD (gastroesophageal reflux disease) Mild hypercholesterolemia Hypertension Coronary artery disease Walker as ambulation aid BPH (benign prostatic hyperplasia) Indwelling Nolan catheter calcification UTI (urinary tract infection) NSTEMI (non-ST elevated myocardial infarction) 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 Mother No problems noted. Social History Household Members: Spouse and Children Housing: House Do you presently have visiting nurse or other home services: Yes Unable to assess alcohol history related to: Unknown Alcohol intake: current Alcohol intake frequency: does not drink Patient Tobacco Use Status: Former Tobacco user service: No Current occupational status: retired Cognitive needs: Yes (walker) Hearing needs: Yes (b/l hearing aids) Vision needs: Yes (rx glasses) Questionnaire PHQ-9 Over the last 2 weeks, how often have you been bothered by any of the following problems? 1. Little interest or pleasure in doing things: not at all 2. Feeling down, depressed, or hopeless: not at all 3. Trouble falling or staying asleep, or sleeping too much: not at all 4. Feeling tired or having little energy: not at all 5. Poor appetite or overeating: not at all 6. Feeling bad about yourself - or that you are a failure or have let yourself or your family down: not at all 7. Trouble concentrating on things, such as reading the newspaper or watching television: not at all 8. Moving or speaking so slowly that other people could have noticed. Or the opposite - being so fidgety or restless that you have been moving around a lot more than usual: not at all 9. Thoughts that you would be better off or of hurting yourself in some way: not at all Total score: 0 Depression Screening Interpretation: Negative Depression Screening Done: Yes 90923 - PHQ-9 Billing: Yes Source: Developed by Drs. Cj Barbosa, Trang Crowley, Ravi Thakur and colleagues, with an educational cortez from [employer]. Thrive Questionnaire Date Thrive assessed: 03/14/25 I am a: Patient What is your living situation today?: I have a steady place to live Within the past 12 months, did the food you bought not last and you didn't have the money to get more?: Never true Within the past 12 months, did you worry whether your food would run out before you got money to buy more?: Never true Do you have trouble paying for medicines?: No Do you have trouble getting transportation to medical appointments?: No Do you have trouble paying your heating and electricity bill?: No Do you have trouble taking care of your child, family member or friend?: No Do you have trouble with day-to-day activities such as bathing, preparing meals, shopping, managing finances, etc.?: No Are you currently unemployed and looking for a job?: No Are you interested in more education?: No Please select the resources that you would like help with: None THRIVE Score: 0 AUDIT C Alcohol Use Questionnaire (AUDIT-C) 1. How often do you have a drink containing alcohol?: Never 3. How often do you have six or more drinks on one occasion?: Never Total Score: 0 Score Reviewed/Action Taken: No DREW-7 AMB Questionnaire DREW-7 Date DREW - 7 assessed: 03/14/25 Feeling nervous, anxious, or on edge: 0 = Not at all Not being able to stop or control worryin = Not at all Worrying too much about different things: 0 = Not at all Trouble relaxin = Not at all Being so restless that it is hard to sit still: 0 = Not at all Becoming easily annoyed or irritable: 0 = Not at all Feeling afraid as if something awful might happen: 0 = Not at all Total DREW-7 score (0-4 normal; 5-9 mild; 10-14 moderate; 15-21 severe): 0 Source: Developed by Drs. Cj Barbosa, Trang Crowley, Ravi Thakur and colleagues, with an educational cortez from [employer]. DREW-7 Assessment Billing DREW-7 Assessment Tool: DREW-7 Assessment 62586 Review of Systems Const Details: - Genitourinary: Reports gross hematuria, no current blood in catheter, no discomfort with catheter - Musculoskeletal: Reports muscular deconditioning, no recent falls - Neurological: Denies confusion - General: Denies fever, chills Physical exam (Primary Care) Vital Signs: Last Vital Signs Pulse 67 05/13/25 11:29 BP 122/74 05/13/25 11:29 Pulse Ox 96 05/13/25 11:29 Oxygen Delivery Method Room Air 05/13/25 11:29 Vitals signs have been reviewed. Care Plan Goal for BP management: <140/90 at Goal BMI result Body Mass Index 27.4 Tobacco/Smoking Status: Tobacco use Status Tobacco use date assessed 05/13/25 05/13/25 11:34 Patient Tobacco Use Status Former Tobacco user 05/13/25 11:34 PHQ-9: PHQ-9 Score PHQ-9: Total score 0 05/13/25 13:10 Depression Screening Interpretation: Negative Thrive Assessment: Date of Thrive Assessment Date Thrive assessed 03/14/25 05/13/25 11:34 Const Other: Appearance: Alert. Oriented X3. No acute distress. Head: Normal external exam. Normocephalic. Atraumatic. Eyes: Pupils are equal, round, and reactive to light. Extraocular movements intact. Conjunctiva and sclera normal. Eyelids normal. Throat: Pharynx normal. Uvula midline. Moist mucous membranes. Neck: Normal inspection. Neck supple. Full range of motion. Cardiovascular: Normal heart rate and rhythm. Respiratory: No respiratory distress. Painless inspiration. Abdomen; soft and nontender. No distention. No organomegaly. Nolan catheter without any evidence of hematuria at this time. Back: No costovertebral angle tenderness. Full range of motion noted. Skin: Skin warm and dry. Normal skin color. Normal skin turgor. No rashes/lesions/lacerations noted. Extremities: No lower extremity edema. Extremities exhibit normal range of motion. Extremities nontender. Neuro: Oriented X 3. No motor deficit. No sensory deficit. Reflexes normal. Normal steady gait with 's assistance. No focal deficits noted. Patient at baseline per . Coding Level of Care Code TCM High MDM <= 14 days Complex EM visit Add On G2211 Diagnoses Enlarged prostate N40.0 Urinary retention R33.9 Gross hematuria R31.0 Coronary artery disease I25.10 Pulmonary embolism without acute cor pulmonale, unspecified chronicity, unspecified pulmonary embolism type I26.99 Acute cor pulmonale presence: without acute cor pulmonale Chronicity: unspecified Pulmonary embolism type: unspecified Muscular deconditioning R29.898 Additional Codes PHQ-9 - 00661 - PHQ-9 Billing: Yes ([id number]) DREW-7 Assessment Billing - DREW-7 Assessment Tool: DREW-7 Assessment 44635 ([id number]) Time Spent (min) 60 Assessment & Plan Assessment & Plan (1) Enlarged prostate: Code(s): N40.0 - Benign prostatic hyperplasia without lower urinary tract symptoms Category: Medical Plan: The patient is scheduled for a robotic simple prostatectomy on June 09, 2025, to address the massively enlarged prostate causing urinary retention. Preoperative clearance with a medical physician is planned, and a bridge from warfarin to Lovenox is recommended prior to surgery. (2) Urinary retention: Code(s): R33.9 - Retention of urine, unspecified Category: Medical Plan: The urinary retention is secondary to the massively enlarged prostate, and the patient has been experiencing catheter blockages and bleeding. A new catheter was placed during the recent hospitalization, and follow-up for catheter change is scheduled in three weeks. (3) Gross hematuria: Code(s): R31.0 - Gross hematuria Category: Medical Plan: The patient was admitted with gross hematuria, which led to the placement of a new catheter. The bleeding was significant enough to cause a blockage, resulting in severe pressure and discomfort until relieved in the emergency department. Condition has resolved. Will continue to monitor. (4) Coronary artery disease: Comment: s/p stenting many years ago Code(s): I25.10 - Atherosclerotic heart disease of [place] coronary artery without angina pectoris Category: Medical Plan: The patient has a history of coronary artery disease and is currently on warfarin therapy. Cardiology clearance for surgery is required, and a letter from the window systems administrator is needed to confirm cardiac stability for the upcoming procedure. Condition is chronic and stable will continue to monitor. (5) Pulmonary emboli: Code(s): I26.99 - Other pulmonary embolism without acute cor pulmonale Category: Medical Qualifiers: Acute cor pulmonale presence: without acute cor pulmonale Chronicity: unspecified Pulmonary embolism type: unspecified Qualified Code(s): I26.99 - Other pulmonary embolism without acute cor pulmonale Plan: The patient's previous surgery was canceled due to a pulmonary embolism and anticoagulation issues. A bridge from warfarin to Lovenox is planned prior to the rescheduled surgery to manage anticoagulation safely. (6) Muscular deconditioning: Code(s): R29.898 - Other symptoms and signs involving the musculoskeletal system Category: Medical Plan: The patient has experienced muscular deconditioning due to multiple hospitalizations and prolonged bed rest. Physical therapy is recommended to address bilateral arm and leg weakness and improve mobility. Plan Plan Patient was informed and verbally consented to the use of an ambient scribe for clinic note documentation during this visit. 1. Massively Enlarged Prostate The patient is scheduled for a robotic simple prostatectomy on June 09, 2025, to address the massively enlarged prostate causing urinary retention. Preoperative clearance with a medical physician is planned, and a bridge from warfarin to Lovenox is recommended prior to surgery. 2. Urinary Retention The urinary retention is secondary to the massively enlarged prostate, and the patient has been experiencing catheter blockages and bleeding. A new catheter was placed during the recent hospitalization, and follow-up for catheter change is scheduled in three weeks. 3. Gross Hematuria The patient was admitted with gross hematuria, which led to the placement of a new catheter. The bleeding was significant enough to cause a blockage, resulting in severe pressure and discomfort until relieved in the emergency department. 4. Coronary Artery Disease The patient has a history of coronary artery disease and is currently on warfarin therapy. Cardiology clearance for surgery is required, and a letter from the window systems administrator is needed to confirm cardiac stability for the upcoming procedure. 5. Pulmonary Embolism The patient's previous surgery was canceled due to a pulmonary embolism and anticoagulation issues. A bridge from warfarin to Lovenox is planned prior to the rescheduled surgery to manage anticoagulation safely. 6. Muscular Deconditioning The patient has experienced muscular deconditioning due to multiple hospitalizations and prolonged bed rest. Physical therapy is recommended to address bilateral arm and leg weakness and improve mobility. During the visit, we discussed the patient's upcoming robotic simple prostatectomy scheduled for June 09, 2025, and the need for preoperative clearance with a medical physician. We also reviewed the plan to bridge from warfarin to Lovenox prior to surgery to manage anticoagulation safely. The importance of cardiology clearance was emphasized, and the patient was advised to obtain a letter from the window systems administrator confirming cardiac stability for the procedure. We discussed the patient's history of muscular deconditioning and recommended physical therapy to improve mobility and address bilateral arm and leg weakness. Orders: Orders ECG 12 lead EKG Today Z01.818 - Encounter for other preprocedural examination Patient Instructions: - Attend preoperative appointment in early May for clearance and blood work. - Obtain cardiology clearance letter for surgery. - Follow the plan to bridge from warfarin to Lovenox as instructed. - Schedule and attend physical therapy sessions to improve mobility. - Monitor for any signs of bleeding or catheter blockage and seek medical attention if they occur.
--- OUTSIDE RECORDS SUMMARY | 2025-05-13 11:49 | XMS_ITS | Encounter Summary ---
Author Organization [facility] Address [address] [place] [address] Care Team Providers Care Drawer In Jacquard Loom Name Role Phone Cj Barber DO Primary Care Provider [phone] Encounter Details Date Type Department Care Team (Late Contact Info) Description 02/26/2025 Lab Requisition [facility] - Main Lab [address] [facility] [place] [address] Fidencio Burroughs MD [address] [place] [id number] Encounter for other general examination Social History [...] Department Care Team (Late Contact Info) Description 08/09/2025 1:10 PM EDT Office Visit [facility] [address] [place] [address] Shahid Ramos NP [address] [place] [address] documented as of this encounter Procedures Procedure [...] CBC auto differential (02/26/2025 6:35 AM EDT) [facility] WBC 11.9(H) 4.8 - 10.8 K/mcL LAB HEMETOLOGY METHOD 02/26/2025 11:12 AM [facility] RBC 4.20(L) 4.50 - 5.50 M/mcL LAB HEMETOLOGY METHOD 02/26/2025 11:12 AM [facility] Hemoglobin 12.6(L) 13.5 - 17.5 g/dL LAB HEMETOLOGY METHOD 02/26/2025 11:12 AM [facility] Hematocrit 38.4(L) 42.0 - 54.0 % LAB HEMETOLOGY METHOD 02/26/2025 11:12 AM [facility] MCV 92.5 79.0 - 98.0 FL LAB HEMETOLOGY METHOD 02/26/2025 11:12 AM [facility] MCH 30.4 27.0 - 32.0 pcg LAB HEMETOLOGY METHOD 02/26/2025 11:12 AM [facility] MCHC 32.8 32.0 - 37.0 g/dL LAB HEMETOLOGY METHOD 02/26/2025 11:12 AM [facility] RDW 13.6 11.0 - 15.0 % LAB HEMETOLOGY METHOD 02/26/2025 11:12 AM [facility] Platelets 02/26/2025 11:12 AM [facility] Comment:Not measured. Platel ets appear adequate but clumped MPV 10.5 7.0 - 11.0 FL LAB HEMETOLOGY METHOD 02/26/2025 11:12 AM [facility] NRBC 0.0 <1.0 % LAB HEMETOLOGY METHOD 02/26/2025 11:12 AM [facility] NRBC Absolute 0.00 <0.10 K/mcL LAB HEMETOLOGY METHOD 02/26/2025 11:12 AM [facility] Neutrophils Relative 78.4 % LAB HEMETOLOGY METHOD 02/26/2025 11:12 AM [facility] Lymphocytes Relative 13.1 % LAB HEMETOLOGY METHOD 02/26/2025 11:12 AM [facility] Monocytes Relative 7.0 % LAB HEMETOLOGY METHOD 02/26/2025 11:12 AM [facility] Eosinophils Relative 1.0 % LAB HEMETOLOGY METHOD 02/26/2025 11:12 AM [facility] Basophils Relative 0.2 % LAB HEMETOLOGY METHOD 02/26/2025 11:12 AM [facility] Immature Granulocytes Relative 0.3 % LAB HEMETOLOGY METHOD 02/26/2025 11:12 AM [facility] Neutrophils Absolute 9.33(H) 1.50 - 7.00 K/mcL LAB HEMETOLOGY METHOD 02/26/2025 11:12 AM [facility] Lymphocytes Absolute 1.56 1.00 - 5.00 K/mcL LAB HEMETOLOGY METHOD 02/26/2025 11:12 AM [facility] Monocytes Absolute 0.83 0.20 - 1.00 K/mcL LAB HEMETOLOGY METHOD 02/26/2025 11:12 AM [facility] Eosinophils Absolute 0.12 0.00 - 0.50 K/mcL LAB HEMETOLOGY METHOD 02/26/2025 11:12 AM T [facility] Basophils Absolute 0.02 0.00 - 0.20 K/mcL LAB HEMETOLOGY METHOD 02/26/2025 11:12 AM EDT [facility] Immature Granulocytes Absolute 0.04(H) 0.00 - 0.03 K/mcL LAB HEMETOLOGY METHOD 02/26/2025 11:12 AM T [facility] Blood Venous blood specimen / Unknown Venipuncture / Unknown 02/26/2025 6:35 AM EDT 02/26/2025 9:37 AM EDT us Fidencio Burroughs MD LAB BLOOD ORDERABLES Final Res ult [facility] [address] [place] [address], * (ABNORMAL) Comprehensive metabolic panel (02/26/2025 6:35 AM EDT) Sodium 135 133 - 145 mmol/L LAB CHEMISTRY METHOD 02/26/2025 11:29 AM [facility] Potassium 4.1 3.5 - 5.5 mmol/L LAB CHEMISTRY METHOD 02/26/2025 11:29 AM [facility] Chloride 98 96 - 110 mmol/L LAB CHEMISTRY METHOD 02/26/2025 11:29 AM [facility] CO2 33(H) 21 - 32 mmol/L LAB CHEMISTRY METHOD 02/26/2025 11:29 AM [facility] Anion Gap 4 3 - 11 LAB CHEMISTRY METHOD 02/26/2025 11:29 AM [facility] Glucose 83 70 - 100 mg/dL LAB CHEMISTRY METHOD 02/26/2025 11:29 AM [facility] BUN 17 5 - 25 mg/dL LAB CHEMISTRY METHOD 02/26/2025 11:29 AM [facility] Creatinine 0.50(L) 0.70 - 1.30 mg/dL LAB CHEMISTRY METHOD 02/26/2025 11:29 AM [facility] eGFR 100 >=60 mL/min/1. 73m2 LAB CHEMISTRY METHOD 02/26/2025 11:29 AM [facility] Comment:Calculation based on the Chronic Kidney Disease Epidemiology Collaboration (CKD-EPI) equation refit without adjustment for race. BUN/Creatinine Ratio 34.0 LAB CHEMISTRY METHOD 02/26/2025 11:29 AM [facility] Calcium 8.7 8.5 - 10.5 mg/dL LAB CHEMISTRY METHOD 02/26/2025 11:29 AM [facility] AST (SGOT) 59(H) 10 - 42 unit/L LAB CHEMISTRY METHOD 02/26/2025 11:29 AM [facility] ALT (SGPT) 95(H) 10 - 60 unit/L LAB CHEMISTRY METHOD 02/26/2025 11:29 AM [facility] Alkaline Phosphatase 105 42 - 121 unit/L LAB CHEMISTRY METHOD 02/26/2025 11:29 AM [facility] Total Protein 5.8(L) 6.0 - 8.0 g/dL LAB CHEMISTRY METHOD 02/26/2025 11:29 AM [facility] Albumin 3.1(L) 3.2 - 5.0 g/dL LAB CHEMISTRY METHOD 02/26/2025 11:29 AM [facility] Total Bilirubin 1.0 0.0 - 1.4 mg/dL LAB CHEMISTRY METHOD 02/26/2025 11:29 AM [facility] Blood Venous blood specimen / Unknown Venipuncture / Unknown 02/26/2025 6:35 AM EDT 02/26/2025 9:37 AM EDT Fidencio Burroughs MD LAB BLOOD ORDERABLES Final Res ult [facility] [address] [place] [address], documented in this encounter Visit Diagnoses Diagnosis Encounter for other general examination documented in this encounter Care Teams Drawer In Jacquard Loom Relationship Specialty Start Date End Date Cj Barber DO [address] [place] [phone] PCP - General 04/21/13 documented as of this encounter
== END 2025-05-13 12:03 | disposition home or self-care (01) ==
LOC: HO.HMCSH 11:27
PROVIDERS: PCP Internal Medicine; Visit Provider Physician Assistant Medical
DX: N40.0 Benign prostatic hyperplasia without lower urinary tract symptoms (principal); I26.99 Other pulmonary embolism without acute cor pulmonale; R33.9 Retention of urine, unspecified; R31.0 Gross hematuria; I25.10 Atherosclerotic heart disease of native coronary artery without angina pectoris; R29.898 Other symptoms and signs involving the musculoskeletal system

== ENCOUNTER → 2025-05-13 11:27 | Outpatient (BNVA) | payer MEDICARE, SELFPAY | PROVIDERS: PCP Internal Medicine; Visit Provider Physician Assistant Medical | DX: I25.10 Atherosclerotic heart disease of native coronary artery without angina pectoris (principal); E78.5 Hyperlipidemia, unspecified; I10 Essential (primary) hypertension; I48.91 Unspecified atrial fibrillation; N40.1 Benign prostatic hyperplasia with lower urinary tract symptoms; R33.8 Other retention of urine; R31.0 Gross hematuria; I26.99 Other pulmonary embolism without acute cor pulmonale; R29.898 Other symptoms and signs involving the musculoskeletal system; Z79.01 Long term (current) use of anticoagulants; Z86.711 Personal history of pulmonary embolism | CPT/HCPCS: 96127; 99495 ==

== ENCOUNTER 2025-05-15 11:10 | Emergency (ER) | payer MEDICARE, SELFPAY ==
--- NOTE | ~2025-05-15 | CT_ITS ---
CLINICAL HISTORY: abd pain CT abdomen and pelvis with IV contrast. COMPARISON: CT angiogram chest dated 02/10/25 at 08:34 EDT FINDINGS: Coronary artery calcifications present within the LAD, circumflex and RCA. Cardiomegaly. No pericardial effusion. Minimal atelectasis along the posterior lower lobes. Hypoattenuating well-defined lesion present within segment 6 of the liver measuring 0.7 cm, too small to further characterize but stable since prior imaging. Cholelithiasis present within the contracted gallbladder. No pericholecystic inflammatory changes. Normal spleen. Normal pancreas. Normal adrenal glands. Symmetric renal enhancement. Right renal cystic lesion measuring 2.7 cm and 2.2 cm. Left renal cystic lesion measuring 2.5 cm. No hydronephrosis. Small extrarenal pelves present bilaterally. Normal appendix. Mild colonic stool burden. No bowel obstruction. No mesenteric or retroperitoneal lymphadenopathy. 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 No surrounding inflammatory changes. Moderate aortoiliac atherosclerotic vascular calcifications.. Urinary bladder is distended. Mild thickening of the mucosa of the urinary bladder. Small urinary bladder diverticulum present along the superior aspect. Small amount of gas present within the urinary bladder likely secondary to instrumentation. Nolan catheter present within the urinary bladder. Marked prostatomegaly measuring minimally 7.2 x 7.3 x 7.6 cm. Prostate calcifications present. Grade 1 anterolisthesis of L4 on L5, degenerative. Advanced multilevel spondylosis. No acute fracture. IMPRESSION: 1. No evidence of appendicitis. No bowel obstruction. 2. Distended urinary bladder with mild thickening. Thickening of the urinary bladder can be associated with chronic outlet obstruction or cystitis. Recommend correlation clinically. Of note there is marked prostatomegaly. 3. Coronary artery atherosclerosis. 4. 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 No surrounding inflammatory changes. Recommend comparison with prior imaging if available. This document has been electronically signed by: Ambrose Bean MD on 05/15/2025 13:46:05
--- NOTE | ~2025-05-15 | XR_ITS ---
CLINICAL HISTORY: sob 1 view chest Comparison: CT/PA/SR - CT ANGIO CHEST PE PROTOCOL - 02/10/25 08:34 EDT CR/SR - XR CHEST 1V - 02/10/25 07:15 EDT Findings: Low inspiration. Resultant mild vascular crowding centrally with subsegmental atelectasis. Stable interstitial thickening. Improvement in the pleural-parenchymal disease left lower lobe. Mild cardiomegaly.No evidence of heart failure. No acute fractures. Post ACDF cervical vertebra Impression: 1. Low inspiration with central vascular crowding and subsegmental atelectasis. 2. Stable interstitial thickening. Improvement in the pleural-parenchymal disease left lower lobe. Stable cardiomegaly without evidence of heart failure. This document has been electronically signed by: Michele Bell MD on 05/15/2025 12:38:52
[2025-05-15 11:14] VITALS: BP 83/46; PULSE 69; RESP 16; TEMP 36.4; O2SAT 99; BMI 26.5
--- NOTE | 2025-05-15 11:21 | ED.GENADULT ---
HPI - General Adult General Chief complaint: Urogenital-Male Stated complaint: Needs Catheter changed Time Seen by Provider: 05/15/25 11:27 History of Present Illness HPI narrative: The patient is a 84-year-old male with a past medical history of CAD status PCI x2, hypertension, hyperlipidemia, recent C3-4, C4-5 ACDF for cervical stenosis and myelopathy. History of atrial fibrillation. Patient is on Coumadin. Presented today with generalized malaise. Patient had no output from the Nolan catheter. Has urine draining around the penis. Patient then came in for further evaluation. Has no abdominal pain no fever no chills. Has no output since last night. The Nolan catheter was changed about 2 weeks ago when patient had bloody urine. Patient from home. Related Data Home Medications ?Medication ?Instructions ?Recorded ?Confirmed timolol maleate 0.5 % eye drops 1 drp ophthalmic (eye) DAILY 10/08/21 05/13/25 aspirin 81 mg tablet,delayed 81 mg PO DAILY 01/31/25 05/13/25 release nitroglycerin 0.4 mg sublingual 0.4 mg sublingual Q5M PRN Angina 01/31/25 05/13/25 tablet clotrimazole 1 % topical cream 1 appl topical BID 03/14/25 05/13/25 isosorbide mononitrate 30 mg 30 mg PO DAILY 03/29/25 05/13/25 tablet,extended release 24 hr metoprolol succinate 25 mg 25 mg PO DAILY 03/29/25 05/13/25 tablet,extended release 24 hr Previous Rx's ?Medication ?Instructions ?Recorded atorvastatin 80 mg tablet 80 mg PO BEDTIME #90 tabs 02/14/25 warfarin 1 mg tablet 5 mg (5 x 1 mg) PO DAILY 90 days 04/06/25 #450 tabs clopidogrel 75 mg tablet (Plavix) 75 mg PO DAILY #90 tabs 04/13/25 Allergies Allergy/AdvReac Type Severity Reaction Status Date / Time No Known Allergies (No Known Allergy Verified 05/15/25 11:18 Allergies*) Review of Systems Review of Systems: positive decreased urine output positive urine leaking around the Nolan catheter previous history of urinary tract infection PMFSH Past Medical History Medical History (Updated 05/15/25 @ 14:15 by Mirela Murguia MD) Gross hematuria Urinary retention Enlarged prostate Pre-op evaluation Lower extremity weakness Physical deconditioning Muscular deconditioning Bilateral arm weakness DVT (deep venous thrombosis) On Coumadin for atrial fibrillation Chronic indwelling Nolan catheter Weakness Hospital discharge follow-up Dyspnea on exertion Vitamin D deficiency Vasovagal syncope Elevated PSA GERD (gastroesophageal reflux disease) Mild hypercholesterolemia Hypertension Coronary artery disease Walker as ambulation aid BPH (benign prostatic hyperplasia) Indwelling Nolan catheter calcification UTI (urinary tract infection) NSTEMI (non-ST elevated myocardial infarction) 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 Mother No problems noted. Social History Social History Household Members: Spouse and Children Housing: House Do you presently have visiting nurse or other home services: Yes Unable to assess alcohol history related to: Unknown Alcohol intake: current Alcohol intake frequency: does not drink Patient Tobacco Use Status: Former Tobacco user Smoked in Last 30 Days: No Use of substances other than those prescribed or required for medical reasons: No Advance Directives: Yes Advance Directives Information Provided: Yes Advance Directives on File: No Do you have a plan to hurt others: No Plan service: No Current occupational status: retired Cognitive needs: Yes (walker) Hearing needs: Yes (b/l hearing aids) Vision needs: Yes (rx glasses) Physical Exam ED Vital Signs: Vital Signs - 24 hr 05/15/25 11:14 05/15/25 13:19 Temperature 97.5 F 98.3 F Pulse Rate 69 73 Respiratory Rate 16 16 Blood Pressure 83/46 L 101/58 L Pulse Oximetry 99 95 Oxygen Delivery Method Room Air BMI result Body Mass Index 26.5 Course Course Course Narrative: RME: 84 yold male presents to the ED with no urine output since last night even with catheter. patient states no abdominal pain. patient is hypotensive. patient brought to the back of the ED. Medications Administered Discontinued Medications Generic Name Dose Route Start Last Admin Trade Name Freq PRN Reason Stop Dose Admin Sodium Chloride 1,000 mls @ 999 mls/hr 05/15/25 11:45 05/15/25 12:22 Ns IV 05/15/25 12:45 999 mls/hr .Q1H1M OLIVIER Administration Iohexol 100 ml 05/15/25 13:18 05/15/25 13:19 Iohexol 350 Mg/Ml 100 Ml Infus..Btl IV 05/15/25 13:19 85 ml ONCE ONE Administration Medical Decision Making Medical Decision Making [facility] Narrative: Patient has a history of hematuria. Currently on Coumadin. INR was therapeutic. Patient's hemoglobin is 10.9 today. Previous lab here at [place] showed a hemoglobin of 14. we were able to obtain the previous lab from [facility] it was 10 point 9 on discharge. Patient is no distress. We did replace the Nolan catheter because we were unable to irrigate the original 3 way. Patient had [address] in the past. He had a episode of hematuria last week. I personally put in the 3 way Nolan catheter case the patient is on Coumadin. Still technique was followed. Subsequently the balloon was tested. Then we planned inserted a [address] There was no complications. Urine straining nicely now. Patient's kidney functions are normal. No distress. Well-appearing. Will discharge patient home. I reviewed patient's CT scan report which showed no acute evidence of bowel obstruction it did show bladder distention it was done prior to the Nolan loom changeover operator. Patient's is in stable condition. Lactate is normal no evidence for infection white count was 7.0 no signs of infection will discharge home. Currently in stable condition. Differential Diagnosis Differential Diagnoses: The differential diagnosis associated with the presentation includes Admission/Observation Consideration of admission/observation: Escalation of care including admission/observation considered Lab Data [facility] Lab Attestation statement: I reviewed the patient's lab results. 05/15/25 11:55 05/15/25 11:55 Labs: Lab Results 05/15/25 05/15/25 05/15/25 Range/Units 11:55 11:55 11:55 WBC 7.0 (4.8-10.8) X10*3/uL RBC 3.70 L D (4.60-5.80) X10*6/uL Hgb 10.9 L D (14.0-18.0) g/dl Hct 34.6 L (42.0-52.0) % MCV 93.5 (80.0-98.0) fL MCH 29.5 (27.0-33.0) pg MCHC 31.5 (31.0-36.0) g/dl RDW 14.6 (11.0-16.0) % Plt Count 111 L D (160-400) X10*3/uL MPV 9.9 (9.4-12.4) fL Immature Gran % (Auto) 0.4 (0.0-0.4) % Neut % (Auto) 78.0 H (45-73) % Lymph % (Auto) 11.5 L (20-40) % [place] % (Auto) 8.5 (2-11) % Eos % (Auto) 0.9 (0-4) % Baso % (Auto) 0.7 (0-2) % Lymph # (Auto) 0.8 L (1.2-4.9) X10*3/uL [place] # (Auto) 0.6 (0.1-1.2) X10*3/uL Eos # (Auto) 0.1 (0.0-0.4) X10*3/uL Baso # (Auto) 0.1 (0.0-0.2) X10*3/uL Abs Immat Gran (auto) 0.03 (0.00-0.03) X10*3/uL Absolute Neuts (auto) 5.5 (2.0-8.3) x10*3/uL Absolute Nucleated RBC 0.000 (0.0-0.012) X10*3/uL Nucleated RBC % (auto) 0.0 (0.0-0.2) /100WBC PT 24.0 H D (10.9-12.4) SEC INR 2.1 H (0.9-1.1) Sodium 139 (135-145) mmol/L Potassium 4.3 (3.3-5.1) mmol/L Chloride 106 (96-108) mmol/L Carbon Dioxide 26 (22-29) mmol/L Anion Gap 11 L (12-20) BUN 10 (9-16) mg/dL Creatinine 0.54 (0.5-1.4) mg/dL Estim Creat Clear Calc 86.9 Estimated GFR > 60 Random Glucose 101 (60-115) mg/dL Lactic Acid 1.4 (0.5-2.0) mmol/L Calcium 9.1 (8.4-10.2) mg/dL Total Bilirubin 0.7 0.7 (0.0-1.0) mg/dL Direct Bilirubin 0.3 (0.0-0.5) mg/dL AST 24 23 (5-37) U/L ALT 26 (0-40) U/L Alkaline Phosphatase (39-117) U/L Total Protein (6.5-8.0) g/dL Albumin (3.5-5.0) g/dL 05/15/25 05/15/25 05/15/25 Range/Units 11:55 11:55 11:55 WBC (4.8-10.8) X10*3/uL RBC (4.60-5.80) X10*6/uL Hgb (14.0-18.0) g/dl Hct (42.0-52.0) % MCV (80.0-98.0) fL MCH (27.0-33.0) pg MCHC (31.0-36.0) g/dl RDW (11.0-16.0) % Plt Count (160-400) X10*3/uL MPV (9.4-12.4) fL Immature Gran % (Auto) (0.0-0.4) % Neut % (Auto) (45-73) % Lymph % (Auto) (20-40) % [place] % (Auto) (2-11) % Eos % (Auto) (0-4) % Baso % (Auto) (0-2) % Lymph # (Auto) (1.2-4.9) X10*3/uL [place] # (Auto) (0.1-1.2) X10*3/uL Eos # (Auto) (0.0-0.4) X10*3/uL Baso # (Auto) (0.0-0.2) X10*3/uL Abs Immat Gran (auto) (0.00-0.03) X10*3/uL Absolute Neuts (auto) (2.0-8.3) x10*3/uL Absolute Nucleated RBC (0.0-0.012) X10*3/uL Nucleated RBC % (auto) (0.0-0.2) /100WBC PT (10.9-12.4) SEC INR (0.9-1.1) Sodium (135-145) mmol/L Potassium (3.3-5.1) mmol/L Chloride (96-108) mmol/L Carbon Dioxide (22-29) mmol/L Anion Gap (12-20) BUN (9-16) mg/dL Creatinine (0.5-1.4) mg/dL Estim Creat Clear Calc Estimated GFR Random Glucose (60-115) mg/dL Lactic Acid (0.5-2.0) mmol/L Calcium (8.4-10.2) mg/dL Total Bilirubin (0.0-1.0) mg/dL Direct Bilirubin (0.0-0.5) mg/dL AST (5-37) U/L ALT 25 (0-40) U/L Alkaline Phosphatase 120 H 120 H (39-117) U/L Total Protein 5.7 L 5.7 L (6.5-8.0) g/dL Albumin 3.6 (3.5-5.0) g/dL 05/15/25 Range/Units 11:55 WBC (4.8-10.8) X10*3/uL RBC (4.60-5.80) X10*6/uL Hgb (14.0-18.0) g/dl Hct (42.0-52.0) % MCV (80.0-98.0) fL MCH (27.0-33.0) pg MCHC (31.0-36.0) g/dl RDW (11.0-16.0) % Plt Count (160-400) X10*3/uL MPV (9.4-12.4) fL Immature Gran % (Auto) (0.0-0.4) % Neut % (Auto) (45-73) % Lymph % (Auto) (20-40) % [place] % (Auto) (2-11) % Eos % (Auto) (0-4) % Baso % (Auto) (0-2) % Lymph # (Auto) (1.2-4.9) X10*3/uL [place] # (Auto) (0.1-1.2) X10*3/uL Eos # (Auto) (0.0-0.4) X10*3/uL Baso # (Auto) (0.0-0.2) X10*3/uL Abs Immat Gran (auto) (0.00-0.03) X10*3/uL Absolute Neuts (auto) (2.0-8.3) x10*3/uL Absolute Nucleated RBC (0.0-0.012) X10*3/uL Nucleated RBC % (auto) (0.0-0.2) /100WBC PT (10.9-12.4) SEC INR (0.9-1.1) Sodium (135-145) mmol/L Potassium (3.3-5.1) mmol/L Chloride (96-108) mmol/L Carbon Dioxide (22-29) mmol/L Anion Gap (12-20) BUN (9-16) mg/dL Creatinine (0.5-1.4) mg/dL Estim Creat Clear Calc Estimated GFR Random Glucose (60-115) mg/dL Lactic Acid (0.5-2.0) mmol/L Calcium (8.4-10.2) mg/dL Total Bilirubin (0.0-1.0) mg/dL Direct Bilirubin (0.0-0.5) mg/dL AST (5-37) U/L ALT (0-40) U/L Alkaline Phosphatase (39-117) U/L Total Protein (6.5-8.0) g/dL Albumin 3.7 (3.5-5.0) g/dL Independent Interpretation I performed an independent interpretation of an: CT Scan ( Grossly negative for bowel obstruct) Radiology Impression Discussion of test interpretation with radiology: I have reviewed the radiologist's reading. Independent Historian Clinical information obtained from an independent historian. History obtained from or confirmed by: Spouse External Record Review External record reviewed: Other ( [facility] records from last week) previous hemoglobin reviewed Discharge Plan Discharge Clinical Impression: Acute urinary retention Patient Disposition: Home, Self-Care Instructions: Urinary Retention in Men (ED) Prescriptions: No Action atorvastatin 80 mg tablet 80 mg PO BEDTIME Qty: 90 1RF warfarin 1 mg tablet 5 mg PO DAILY 90 Days Qty: 450 1RF clopidogrel [Plavix] 75 mg tablet 75 mg PO DAILY Qty: 90 1RF timolol maleate 0.5 % drops 1 drp ophthalmic (eye) DAILY aspirin 81 mg tablet,delayed release (DR/EC) 81 mg PO DAILY nitroglycerin 0.4 mg tablet, sublingual 0.4 mg sublingual Q5M PRN (Reason: Angina) Patient Comments: pt states does not use anymore Rx Instructions: do not exceed 3 doses per episode clotrimazole 1 % cream 1 appl topical BID metoprolol succinate 25 mg tablet extended release 24 hr 25 mg PO DAILY isosorbide mononitrate 30 mg tablet extended release 24 hr 30 mg PO DAILY Referrals: Aly Crespo MD [Primary Care Provider, Internal Medicine] - 3 days Print Language: [place] Leonean
--- NOTE | 2025-05-15 11:59 | PC.NURSE ---
bladder scan done showing 193mL. stating has had poor output since friday. upon bladder scan patient denies any bladder pain/discomfort. IV established, labs obtained and sent.
[2025-05-15 12:01] LABS: MANUAL DIFF FLAG NO
[2025-05-15 12:03] LABS: Basophils Absolute Auto 0.1 X10*3/uL (0.0-0.2); Basophils Percent Auto 0.7 % (0-2); Eosinophils Absolute Auto 0.1 X10*3/uL (0.0-0.4); Eosinophils Percent Auto 0.9 % (0-4); Hematocrit 34.6 % (42.0-52.0); Hemoglobin 10.9 g/dl (14.0-18.0); Imm Gran Abs Auto 0.03 X10*3/uL (0.00-0.03); Imm Gran Pct Auto 0.4 % (0.0-0.4); Lymphocytes Absolute Auto 0.8 X10*3/uL (1.2-4.9); Lymphocytes Percent Auto 11.5 % (20-40); Mean Corpuscular HGB Conc 31.5 g/dl (31.0-36.0); Mean Corpuscular Hemoglobin 29.5 pg (27.0-33.0); Mean Corpuscular Volume 93.5 fL (80.0-98.0); Mean Platelet Volume 9.9 fL (9.4-12.4); Monocytes Absolute Auto 0.6 X10*3/uL (0.1-1.2); Monocytes Percent Auto 8.5 % (2-11); Neutrophils Absolute Auto 5.5 x10*3/uL (2.0-8.3); Platelet Count 111 X10*3/uL (160-400); Red Cell Distribution Width 14.6 % (11.0-16.0)
[2025-05-15 12:11] LABS: INTERNATIONAL NORM RATIO 2.1 (0.9-1.1)
[2025-05-15 12:17] LABS: Alanine Aminotransferase 25 U/L (0-40); Albumin Level 3.7 g/dL (3.5-5.0); Alkaline Phosphatase 120 U/L (39-117); Aspartate Amino Transferase 23 U/L (5-37); Bilirubin Direct 0.3 mg/dL (0.0-0.5); Bilirubin Total 0.7 mg/dL (0.0-1.0); Total Protein 5.7 g/dL (6.5-8.0)
[2025-05-15 12:19] LABS: Alanine Aminotransferase 26 U/L (0-40); Albumin Level 3.6 g/dL (3.5-5.0); Alkaline Phosphatase 120 U/L (39-117); Anion Gap 11 (12-20); Aspartate Amino Transferase 24 U/L (5-37); Bilirubin Total 0.7 mg/dL (0.0-1.0); Blood Urea Nitrogen 10 mg/dL (9-16); Calcium 9.1 mg/dL (8.4-10.2); Carbon Dioxide 26 mmol/L (22-29); Chloride 106 mmol/L (96-108); Creatinine Clr Calc Pharmacy 86.9; Estimated Glomerular Filt Rate > 60; Glucose Random 101 mg/dL (60-115); Lactic Acid 1.4 mmol/L (0.5-2.0); Potassium 4.3 mmol/L (3.3-5.1); Sodium 139 mmol/L (135-145); Total Protein 5.7 g/dL (6.5-8.0)
[2025-05-15] MEDS: 0.9 % Sodium Chloride 1,000 ML 999 ML IV (12:22)
[2025-05-15 13:19] VITALS: BP 101/58; PULSE 73; RESP 16; TEMP 36.8; O2SAT 95
[2025-05-15] MEDS: iohexoL 350 MG/ML 100 ML INFUS..BTL IV (13:19)
[2025-05-15] MEDS: Lidocaine HCl 2 % Urojet 10 ML JEL.PF.APP TOPICAL ×2 (14:18)
[2025-05-15 14:52] LABS: OBS Int Ctl Valid YES; OBS1 NEGATIVE (NEGATIVE)
[2025-05-15 15:07] VITALS: BP 119/71; PULSE 64; RESP 22; TEMP 36.5; O2SAT 99
[2025-05-15 15:30] VITALS: BP 119/71; PULSE 64; RESP 22; TEMP 36.5; O2SAT 99
== END 2025-05-15 15:51 | disposition home or self-care (01) ==
PROVIDERS: Physician Assistant; Emergency Provider Emergency Medicine Emergency Medical Services; PCP Internal Medicine
DX: R33.9 Retention of urine, unspecified (principal); R31.9 Hematuria, unspecified; I25.10 Atherosclerotic heart disease of native coronary artery without angina pectoris; R53.81 Other malaise; R10.2 Pelvic and perineal pain; I10 Essential (primary) hypertension; Z79.01 Long term (current) use of anticoagulants; Z79.899 Other long term (current) drug therapy; Z87.891 Personal history of nicotine dependence
CPT/HCPCS: 36415; 71045; 74177; 80053; 80076; 82248; 82272; 83605; 85025; 85610; 87040; 96360; 99284; 99285; Q9967

== ENCOUNTER → 2025-05-15 11:45 | Outpatient (BNV) | payer MEDICARE, SELFPAY | PROVIDERS: Emergency Provider Emergency Medicine Emergency Medical Services; PCP Internal Medicine; Visit Provider Radiology Diagnostic Radiology | DX: I25.10 Atherosclerotic heart disease of native coronary artery without angina pectoris (principal); R06.02 Shortness of breath; I71.43 Infrarenal abdominal aortic aneurysm, without rupture | CPT/HCPCS: 71045; 74177 ==

== ENCOUNTER 2025-05-18 09:48 | Outpatient (AMB) | payer MEDICARE, SELFPAY ==
--- NOTE | 2025-05-18 09:36 | MHC.OFFVISCO ---
Intake Intake Visit Reasons: Anticoagulation Mechanic Recovery Required: No Allergies No Known Allergies (No Known Allergies*) Allergy (Verified 05/18/25 10:02) Medication List - Last Reconciled 05/18/25 by Tena Sorto RN aspirin 81 mg PO DAILY atorvastatin 80 mg PO BEDTIME clopidogrel (Plavix) 75 mg PO DAILY clotrimazole 1% 1 appl topical BID isosorbide mononitrate ER 30 mg PO DAILY metoprolol succinate ER 25 mg PO DAILY nitroglycerin 0.4 mg sublingual Q5M PRN timolol maleate 0.5% 1 drp ophthalmic (eye) DAILY warfarin 5 mg (5 x 1 mg) PO DAILY 90 days Nursing Note INITIAL VISIT TODAY WITH PT.AND .; PT.STARTED WARFARIN 02/15 AFTER BILAT. DVT'S LOWER LEGS WITH SUBSEQ. PE AND ONSET OF AFIB. PT.HAS INDWELLING CATH.,AND HAS PROSTATECTOMY PLANNED FOR 06/09/25. PT.HAS HAD RECENT VNA SERVICE, AND PRESENT WARFARIN DOSE HAS BEEN 5MGM DAILY PT.STATES. WAS IN ER ON 05/15 WITH A BLOCKED F/C AND INR WAS 2.1 PT.DENIES ANY MISSED DOSES SINCE THEN. WILL BOOST TO 7.5MGM TODAY AND TOMORROW, AND RECHECK INR ON 05/20. PT.AGREES TO HOLD ALL GREENS AND WILL HAVE REDS IN THE MEANTIME. PCP(RODOLFO)NOTIFIED OF LOW INR AND PLAN OF CARE. SHE WILL INQUIRE RE NEED FOR LOVENOX. PHARMACY AND PHONE CONFIRMED. EDUCATION COMPLETED TODAY WITH REVIEW OF HANDOUTS/MATERIALS,ETC. PT.AND VERB.GOOD UNDERSTANDING, AND AGREE TO CALL IF ANY QUESTION/CONCERNS ARISE. 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 Illness/Depression: No Surgeries: BACK SURGERY 2023 CARDIAC STENT PLACEMENT Anti-Coag. Education Record Teaching Recipient: Family and Patient What is the easiest way to learn: Reading and Listening Significant other who can be involved in Teaching Process when Indicated: Mechanic Recovery Required: No Readiness To Learn: Excellent Teaching Methods: Audiovisual, Handout and Protocol Education Intervention/Brief Description of Teaching 1. Able to state reason for taking Warfarin: Yes 2. Able to state Pain Management techniques: No 3. Able to state action of Warfarin.: Yes Able to state current dose, pill color, how and when Warfarin to be taken: Yes Able to identify signs of bleeding &/or clotting: Yes 4. Able to identify need to keep diet consistent in regard to vitamin K intake: Yes Able to state restriction on alcohol: Yes 5. Able to state need for compliance with PT/INR testing: Yes Describes rationale for carrying ID and wearing Medic Alert bracelet: Yes Patient instructed to monitor for excess bruising or signs/symptoms of clotting or bleeding: Yes 6. Able to state that there are drugs that interact with Warfin: Yes 7. Able to state the need to seek medical attention when illness/injury occur.: Yes Describes the need to avoid activities with high risk of injury: Yes 8. Able to state duration of treatment: Yes 9. Demonstrates understanding of notifying all providers of pending dental surgical, or other invasive procedures: Yes 10. Able to state Home Care instructions Questionnaires HAS-BLED Does the patient had uncontrolled Hypertension?: No Does the patient have renal disease?: No Does the patient have liver disease?: No Does the patient have a history of stroke?: No Has the patient had major bleeding or predisposition to bleeding?: Yes Does the patient have labile INRs?: Yes Is the patient over 65 years of age?: Yes Is the patient on medications that gives them a predisposition to bleeding?: Yes Does the patient use alcohol?: No HAS-BLED Score: 4 CHADSVASC Age: 75 or over Gender: Male Does the patient have a history of CHF?: No Does the patient have a history of Hypertension?: Yes Does the patient have a history of Stroke/TIA/Thromboembolism?: Yes Does the patient have a history of Vascular Disease (prior FL, PAD or aortic plaque)?: Yes Does the patient have a history of Diabetes?: No CHADS VACS Score: 6 Margret Prediction Score Rsk VTE Active Cancer: No Previous VTE, excluding superficial vein thrombosis: Yes Reduced mobility: No Already known Thrombophilic Condition: Yes With-in last month Trauma and/or Surgery: No Elderly 70 year or older: Yes Heart and/or Respiratory Failure: No Acute Myocardial infarction and/or Ischemic Stroke: Yes Acute Infection and/or Rheumatologic Disorder: No Obesity (BMI 30 or greater): No Ongoing Hormonal Treatment: No Score: 8 Margret Score less than 4; Low Risk of VTE Margret Score 4 or greater; High Risk of VTE Coding Level of Care Code New Patient Level 2 Diagnoses Current use of anticoagulant therapy Z79.01 Assessment & Plan Assessment & Plan (1) Current use of anticoagulant therapy: Code(s): Z79.01 - long term care administrator (current) use of anticoagulants Category: Medical Medications: New lisinopril 5 mg PO DAILY furosemide (Lasix) 20 mg PO DAILY Discontinued clopidogrel (Plavix) Discontinued Reason: Patient no longer taking 75 mg PO DAILY 90 tabs 1RF
[2025-05-18 10:14] LABS: Prothrombin Time Whole Bld POC 17.4 sec (11.1-13.5); ~PT, ~INR - Anti Coag Clinic 1.4 (0.9-1.1)
--- OUTSIDE RECORDS SUMMARY | 2025-05-18 11:09 | XMS_ITS | Encounter Summary ---
Author Organization [facility] Address [address] [place] [address] Care Team Providers Care College Specialist Name Role Phone Cj Barber DO Primary Care Provider [phone] Encounter Details Date Type Department Care Team (Late Contact Info) Description 02/26/2025 Lab Requisition [facility] - Main Lab [address] [facility] [place] [place] [address] Fidencio Burroughs MD [address] [place] [phone] Encounter for other general examination Social History [...] Description 08/09/2025 1:10 PM EDT Office Visit [facility] [address] [place] [address] Shahid Ramos NP [address] [place] [address] documented as of this encounter Procedures Procedure [...] CBC auto differential (02/26/2025 6:35 AM EDT) [facility] WBC 11.9(H) 4.8 - 10.8 K/mcL LAB HEMETOLOGY METHOD 02/26/2025 11:12 AM [facility] RBC 4.20(L) 4.50 - 5.50 M/mcL LAB HEMETOLOGY METHOD 02/26/2025 11:12 AM [facility] Hemoglobin 12.6(L) 13.5 - 17.5 g/dL LAB HEMETOLOGY METHOD 02/26/2025 11:12 AM [facility] Hematocrit 38.4(L) 42.0 - 54.0 % LAB HEMETOLOGY METHOD 02/26/2025 11:12 AM [facility] MCV 92.5 79.0 - 98.0 FL LAB HEMETOLOGY METHOD 02/26/2025 11:12 AM [facility] MCH 30.4 27.0 - 32.0 pcg LAB HEMETOLOGY METHOD 02/26/2025 11:12 AM [facility] MCHC 32.8 32.0 - 37.0 g/dL LAB HEMETOLOGY METHOD 02/26/2025 11:12 AM [facility] RDW 13.6 11.0 - 15.0 % LAB HEMETOLOGY METHOD 02/26/2025 11:12 AM [facility] Platelets 02/26/2025 11:12 AM [facility] Comment:Not measured. Platel ets appear adequate but clumped MPV 10.5 7.0 - 11.0 FL LAB HEMETOLOGY METHOD 02/26/2025 11:12 AM [facility] NRBC 0.0 <1.0 % LAB HEMETOLOGY METHOD 02/26/2025 11:12 AM [facility] NRBC Absolute 0.00 <0.10 K/mcL LAB HEMETOLOGY METHOD 02/26/2025 11:12 AM [facility] Neutrophils Relative 78.4 % LAB HEMETOLOGY METHOD 02/26/2025 11:12 AM [facility] Lymphocytes Relative 13.1 % LAB HEMETOLOGY METHOD 02/26/2025 11:12 AM [facility] Monocytes Relative 7.0 % LAB HEMETOLOGY METHOD 02/26/2025 11:12 AM [facility] Eosinophils Relative 1.0 % LAB HEMETOLOGY METHOD 02/26/2025 11:12 AM [facility] Basophils Relative 0.2 % LAB HEMETOLOGY METHOD 02/26/2025 11:12 AM [facility] Immature Granulocytes Relative 0.3 % LAB HEMETOLOGY METHOD 02/26/2025 11:12 AM [facility] Neutrophils Absolute 9.33(H) 1.50 - 7.00 K/mcL LAB HEMETOLOGY METHOD 02/26/2025 11:12 AM [facility] Lymphocytes Absolute 1.56 1.00 - 5.00 K/mcL LAB HEMETOLOGY METHOD 02/26/2025 11:12 AM [facility] Monocytes Absolute 0.83 0.20 - 1.00 K/mcL LAB HEMETOLOGY METHOD 02/26/2025 11:12 AM [facility] Eosinophils Absolute 0.12 0.00 - 0.50 K/mcL LAB HEMETOLOGY METHOD 02/26/2025 11:12 AM T [facility] Basophils Absolute 0.02 0.00 - 0.20 K/mcL LAB HEMETOLOGY METHOD 02/26/2025 11:12 AM EDT [facility] Immature Granulocytes Absolute 0.04(H) 0.00 - 0.03 K/mcL LAB HEMETOLOGY METHOD 02/26/2025 11:12 AM T [facility] Blood Venous blood specimen / Unknown Venipuncture / Unknown 02/26/2025 6:35 AM EDT 02/26/2025 9:37 AM EDT us Fidencio Burroughs MD LAB BLOOD ORDERABLES Final Res ult [facility] [address] [place] [address], * (ABNORMAL) Comprehensive metabolic panel (02/26/2025 6:35 AM EDT) Sodium 135 133 - 145 mmol/L LAB CHEMISTRY METHOD 02/26/2025 11:29 AM [facility] Potassium 4.1 3.5 - 5.5 mmol/L LAB CHEMISTRY METHOD 02/26/2025 11:29 AM [facility] Chloride 98 96 - 110 mmol/L LAB CHEMISTRY METHOD 02/26/2025 11:29 AM [facility] CO2 33(H) 21 - 32 mmol/L LAB CHEMISTRY METHOD 02/26/2025 11:29 AM [facility] Anion Gap 4 3 - 11 LAB CHEMISTRY METHOD 02/26/2025 11:29 AM [facility] Glucose 83 70 - 100 mg/dL LAB CHEMISTRY METHOD 02/26/2025 11:29 AM [facility] BUN 17 5 - 25 mg/dL LAB CHEMISTRY METHOD 02/26/2025 11:29 AM [facility] Creatinine 0.50(L) 0.70 - 1.30 mg/dL LAB CHEMISTRY METHOD 02/26/2025 11:29 AM [facility] eGFR 100 >=60 mL/min/1. 73m2 LAB CHEMISTRY METHOD 02/26/2025 11:29 AM [facility] Comment:Calculation based on the Chronic Kidney Disease Epidemiology Collaboration (CKD-EPI) equation refit without adjustment for race. BUN/Creatinine Ratio 34.0 LAB CHEMISTRY METHOD 02/26/2025 11:29 AM [facility] Calcium 8.7 8.5 - 10.5 mg/dL LAB CHEMISTRY METHOD 02/26/2025 11:29 AM [facility] AST (SGOT) 59(H) 10 - 42 unit/L LAB CHEMISTRY METHOD 02/26/2025 11:29 AM [facility] ALT (SGPT) 95(H) 10 - 60 unit/L LAB CHEMISTRY METHOD 02/26/2025 11:29 AM [facility] Alkaline Phosphatase 105 42 - 121 unit/L LAB CHEMISTRY METHOD 02/26/2025 11:29 AM [facility] Total Protein 5.8(L) 6.0 - 8.0 g/dL LAB CHEMISTRY METHOD 02/26/2025 11:29 AM [facility] Albumin 3.1(L) 3.2 - 5.0 g/dL LAB CHEMISTRY METHOD 02/26/2025 11:29 AM [facility] Total Bilirubin 1.0 0.0 - 1.4 mg/dL LAB CHEMISTRY METHOD 02/26/2025 11:29 AM [facility] Blood Venous blood specimen / Unknown Venipuncture / Unknown 02/26/2025 6:35 AM EDT 02/26/2025 9:37 AM EDT Fidencio Burroughs MD LAB BLOOD ORDERABLES Final Res ult [facility] [address] [place] [address], documented in this encounter Visit Diagnoses Diagnosis Encounter for other general examination documented in this encounter Care Teams College Specialist Relationship Specialty Start Date End Date Cj Barber DO [address] [place] [phone] PCP - General 04/21/13 documented as of this encounter
== END 2025-05-18 12:30 | disposition home or self-care (01) ==
LOC: HO.ACS 09:48
PROVIDERS: PCP Internal Medicine; Visit Provider Internal Medicine Medical Oncology
DX: Z79.01 Long term (current) use of anticoagulants (principal)

== ENCOUNTER → 2025-05-18 09:48 | Outpatient (BNVA) | payer MEDICARE, SELFPAY | PROVIDERS: PCP Internal Medicine; Visit Provider Internal Medicine Medical Oncology | DX: Z79.01 Long term (current) use of anticoagulants (principal) | CPT/HCPCS: 85610; 99202 ==

== ENCOUNTER 2025-05-20 11:20 | Outpatient (AMB) | payer MEDICARE, SELFPAY ==
[2025-05-20 11:37] LABS: Prothrombin Time Whole Bld POC 18.8 sec (11.1-13.5); ~PT, ~INR - Anti Coag Clinic 1.6 (0.9-1.1)
--- NOTE | 2025-05-20 11:47 | MHC.OFFVISCO ---
Intake Intake Visit Reasons: Anticoagulation Allergies No Known Allergies (No Known Allergies*) Allergy (Verified 05/20/25 11:33) Medication List - Last Reconciled 05/20/25 by Fabienne Armstrong RN aspirin 81 mg PO DAILY atorvastatin 80 mg PO BEDTIME clotrimazole 1% 1 appl topical BID furosemide (Lasix) 20 mg PO DAILY isosorbide mononitrate ER 30 mg PO DAILY lisinopril 5 mg PO DAILY metoprolol succinate ER 25 mg PO DAILY nitroglycerin 0.4 mg sublingual Q5M PRN timolol maleate 0.5% 1 drp ophthalmic (eye) DAILY warfarin 5 mg See Protocol PO DAILY 90 days Nursing Note Pt to ACS with use of wheeled walker and accompanied by INR: 1.6 out of therapeutic range of 2-3 Medications and supplements reviewed Patient status: feels well Medications or supplements: no changes Diet: usual diet for pt Denies any signs and symptoms of bleeding or clotting or unusual bruising Bleeding, bruising, clotting discussed Pt has indwelling samaniego. Nutritional guidance given: to avoid greens until INR >2.0 Dose: 7.5mg X 2 days and then 5mg then retest F/U INR Date: 05/23/25?? Patient and verbalizing understanding of instructions given. 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
--- OUTSIDE RECORDS SUMMARY | 2025-05-20 12:31 | XMS_ITS | Encounter Summary ---
Author Organization [facility] Address [address] [place] [address] Care Team Providers Care Gis Analyst Developer Name Role Phone Cj Barber DO Primary Care Provider [phone] Encounter Details Date Type Department Care Team (Late Contact Info) Description 02/26/2025 Lab Requisition [facility] - Main Lab 299 [facility] [place] [address] Fidencio Burroughs MD [address] [place] [phone] Encounter for other general examination Social History [...] Description 08/09/2025 1:10 PM EDT Office Visit [facility] [address] [place] [address] Shahid Ramos NP [address] [place] [address] documented as of this encounter Procedures Procedure [...] CBC auto differential (02/26/2025 6:35 AM EDT) [facility] WBC 11.9(H) 4.8 - 10.8 K/mcL LAB [...] Final Res ult [facility] [address] [place] [address], * (ABNORMAL) Comprehensive metabolic panel (02/26/2025 6:35 [...] [facility] Comment:Calculation based on the Chronic [...] LAB BLOOD ORDERABLES Final Res ult [facility] [address] [place] [address], documented in this encounter Visit Diagnoses Diagnosis Encounter for other general examination documented in this encounter Care Teams Gis Analyst Developer Relationship Specialty Start Date End Date Cj Barber DO [address] [place] [phone] PCP - General 04/21/13 documented as of this encounter
== END 2025-05-20 12:10 | disposition home or self-care (01) ==
LOC: HO.ACS 11:20
PROVIDERS: PCP Internal Medicine; Visit Provider Internal Medicine Medical Oncology
DX: Z79.01 Long term (current) use of anticoagulants (principal)

== ENCOUNTER → 2025-05-20 11:20 | Outpatient (BNVA) | payer MEDICARE, SELFPAY | PROVIDERS: PCP Internal Medicine; Visit Provider Internal Medicine Medical Oncology | DX: Z79.01 Long term (current) use of anticoagulants (principal) | CPT/HCPCS: 85610; 99211 ==

== ENCOUNTER 2025-05-23 09:09 | Outpatient (AMB) | payer MEDICARE, SELFPAY ==
--- OUTSIDE RECORDS SUMMARY | 2025-05-23 09:28 | XMS_ITS | Encounter Summary ---
Author Organization [facility] Address [address] [place] [address] Care Team Providers Care Build Master Name Role Phone Cj Barber DO Primary Care Provider [phone] Encounter Details Date Type Department Care Team (Late Contact Info) Description 02/26/2025 Lab Requisition [facility] - Main Lab 299 [facility] [place] [address] Fidencio Burroughs MD [address] [place] [phone] Encounter for other general examination Social History [...] Description 08/09/2025 1:10 PM EDT Office Visit [facility] [address] [place] [address] Shahid Ramos NP [address] [place] [address] documented as of this encounter Procedures Procedure [...] CBC auto differential (02/26/2025 6:35 AM EDT) [facility] WBC 11.9(H) 4.8 - 10.8 K/mcL LAB HEMETOLOGY METHOD 02/26/2025 11:12 AM [facility] RBC 4.20(L) 4.50 - 5.50 M/mcL LAB HEMETOLOGY METHOD 02/26/2025 11:12 AM [facility] Hemoglobin 12.6(L) 13.5 - 17.5 g/dL LAB HEMETOLOGY METHOD 02/26/2025 11:12 AM [facility] Hematocrit 38.4(L) 42.0 - 54.0 % LAB HEMETOLOGY METHOD 02/26/2025 11:12 AM [facility] MCV 92.5 79.0 - 98.0 FL LAB HEMETOLOGY METHOD 02/26/2025 11:12 AM [facility] MCH 30.4 27.0 - 32.0 pcg LAB HEMETOLOGY METHOD 02/26/2025 11:12 AM [facility] MCHC 32.8 32.0 - 37.0 g/dL LAB HEMETOLOGY METHOD 02/26/2025 11:12 AM [facility] RDW 13.6 11.0 - 15.0 % LAB HEMETOLOGY METHOD 02/26/2025 11:12 AM [facility] Platelets 02/26/2025 11:12 AM [facility] Comment:Not measured. Platel ets appear adequate but clumped MPV 10.5 7.0 - 11.0 FL LAB HEMETOLOGY METHOD 02/26/2025 11:12 AM [facility] NRBC 0.0 <1.0 % LAB HEMETOLOGY METHOD 02/26/2025 11:12 AM [facility] NRBC Absolute 0.00 <0.10 K/mcL LAB HEMETOLOGY METHOD 02/26/2025 11:12 AM [facility] Neutrophils Relative 78.4 % LAB HEMETOLOGY METHOD 02/26/2025 11:12 AM [facility] Lymphocytes Relative 13.1 % LAB HEMETOLOGY METHOD 02/26/2025 11:12 AM [facility] Monocytes Relative 7.0 % LAB HEMETOLOGY METHOD 02/26/2025 11:12 AM [facility] Eosinophils Relative 1.0 % LAB HEMETOLOGY METHOD 02/26/2025 11:12 AM [facility] Basophils Relative 0.2 % LAB HEMETOLOGY METHOD 02/26/2025 11:12 AM [facility] Immature Granulocytes Relative 0.3 % LAB HEMETOLOGY METHOD 02/26/2025 11:12 AM [facility] Neutrophils Absolute 9.33(H) 1.50 - 7.00 K/mcL LAB HEMETOLOGY METHOD 02/26/2025 11:12 AM [facility] Lymphocytes Absolute 1.56 1.00 - 5.00 K/mcL LAB HEMETOLOGY METHOD 02/26/2025 11:12 AM [facility] Monocytes Absolute 0.83 0.20 - 1.00 K/mcL LAB HEMETOLOGY METHOD 02/26/2025 11:12 AM [facility] Eosinophils Absolute 0.12 0.00 - 0.50 K/mcL LAB HEMETOLOGY METHOD 02/26/2025 11:12 AM T [facility] Basophils Absolute 0.02 0.00 - 0.20 K/mcL LAB HEMETOLOGY METHOD 02/26/2025 11:12 AM EDT [facility] Immature Granulocytes Absolute 0.04(H) 0.00 - 0.03 K/mcL LAB HEMETOLOGY METHOD 02/26/2025 11:12 AM T [facility] Blood Venous blood specimen / Unknown Venipuncture / Unknown 02/26/2025 6:35 AM EDT 02/26/2025 9:37 AM EDT us Fidencio Burroughs MD LAB BLOOD ORDERABLES Final Res ult [facility] [address] [place] [address], * (ABNORMAL) Comprehensive metabolic panel (02/26/2025 6:35 AM EDT) Sodium 135 133 - 145 mmol/L LAB CHEMISTRY METHOD 02/26/2025 11:29 AM [facility] Potassium 4.1 3.5 - 5.5 mmol/L LAB CHEMISTRY METHOD 02/26/2025 11:29 AM [facility] Chloride 98 96 - 110 mmol/L LAB CHEMISTRY METHOD 02/26/2025 11:29 AM [facility] CO2 33(H) 21 - 32 mmol/L LAB CHEMISTRY METHOD 02/26/2025 11:29 AM [facility] Anion Gap 4 3 - 11 LAB CHEMISTRY METHOD 02/26/2025 11:29 AM [facility] Glucose 83 70 - 100 mg/dL LAB CHEMISTRY METHOD 02/26/2025 11:29 AM [facility] BUN 17 5 - 25 mg/dL LAB CHEMISTRY METHOD 02/26/2025 11:29 AM [facility] Creatinine 0.50(L) 0.70 - 1.30 mg/dL LAB CHEMISTRY METHOD 02/26/2025 11:29 AM [facility] eGFR 100 >=60 mL/min/1. 73m2 LAB CHEMISTRY METHOD 02/26/2025 11:29 AM [facility] Comment:Calculation based on the Chronic Kidney Disease Epidemiology Collaboration (CKD-EPI) equation refit without adjustment for race. BUN/Creatinine Ratio 34.0 LAB CHEMISTRY METHOD 02/26/2025 11:29 AM [facility] Calcium 8.7 8.5 - 10.5 mg/dL LAB CHEMISTRY METHOD 02/26/2025 11:29 AM [facility] AST (SGOT) 59(H) 10 - 42 unit/L LAB CHEMISTRY METHOD 02/26/2025 11:29 AM [facility] ALT (SGPT) 95(H) 10 - 60 unit/L LAB CHEMISTRY METHOD 02/26/2025 11:29 AM [facility] Alkaline Phosphatase 105 42 - 121 unit/L LAB CHEMISTRY METHOD 02/26/2025 11:29 AM [facility] Total Protein 5.8(L) 6.0 - 8.0 g/dL LAB CHEMISTRY METHOD 02/26/2025 11:29 AM [facility] Albumin 3.1(L) 3.2 - 5.0 g/dL LAB CHEMISTRY METHOD 02/26/2025 11:29 AM [facility] Total Bilirubin 1.0 0.0 - 1.4 mg/dL LAB CHEMISTRY METHOD 02/26/2025 11:29 AM [facility] Blood Venous blood specimen / Unknown Venipuncture / Unknown 02/26/2025 6:35 AM EDT 02/26/2025 9:37 AM EDT Fidencio Burroughs MD LAB BLOOD ORDERABLES Final Res ult [facility] [address] [place] [address], documented in this encounter Visit Diagnoses Diagnosis Encounter for other general examination documented in this encounter Care Teams Build Master Relationship Specialty Start Date End Date Cj Barber DO [address] [place] [address] [phone] PCP - General 04/21/13 documented as of this encounter
[2025-05-23 09:37] LABS: Prothrombin Time Whole Bld POC 21.9 sec (11.1-13.5); ~PT, ~INR - Anti Coag Clinic 1.8 (0.9-1.1)
--- NOTE | 2025-05-23 09:45 | MHC.OFFVISCO ---
Intake Intake Visit Reasons: Anticoagulation Allergies No Known Allergies (No Known Allergies*) Allergy (Verified 05/23/25 09:30) Medication List - Last Reconciled 05/23/25 by Fabienne Armstrong RN aspirin 81 mg PO DAILY atorvastatin 80 mg PO BEDTIME clotrimazole 1% 1 appl topical BID furosemide (Lasix) 20 mg PO DAILY isosorbide mononitrate ER 30 mg PO DAILY lisinopril 5 mg PO DAILY metoprolol succinate ER 25 mg PO DAILY nitroglycerin 0.4 mg sublingual Q5M PRN timolol maleate 0.5% 1 drp ophthalmic (eye) DAILY warfarin 5 mg See Protocol PO DAILY 90 days Nursing Note Pt to ACS with use of wheeled walker accompanied by INR: 1.8?out of therapeutic range of 2-3 Medications and supplements reviewed Patient status: no changes Medications or supplements: no changes Diet: usual diet for pt, no greens Denies any signs and symptoms of bleeding or clotting or unusual bruising Bleeding, bruising, clotting discussed Nutritional guidance given: avoid greens until INR >2.0 Dose: 6mg X 5 days and 9mg X 2 days (Mon & ) F/U INR Date : 05/30/25? Patient and verbalized understanding of instructions given. 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
== END 2025-05-23 12:15 | disposition home or self-care (01) ==
LOC: HO.ACS 09:09
PROVIDERS: PCP Internal Medicine; Visit Provider Internal Medicine Medical Oncology
DX: Z79.01 Long term (current) use of anticoagulants (principal)

== ENCOUNTER → 2025-05-23 09:09 | Outpatient (BNVA) | payer MEDICARE, SELFPAY | PROVIDERS: PCP Internal Medicine; Visit Provider Internal Medicine Medical Oncology | DX: Z79.01 Long term (current) use of anticoagulants (principal) | CPT/HCPCS: 85610; 99212 ==

== ENCOUNTER 2025-05-30 09:47 | Outpatient (AMB) | payer MEDICARE, SELFPAY ==
[2025-05-30 09:58] LABS: Prothrombin Time Whole Bld POC 23.2 sec (11.1-13.5); ~PT, ~INR - Anti Coag Clinic 1.9 (0.9-1.1)
--- NOTE | 2025-05-30 10:13 | MHC.OFFVISCO ---
Intake Intake Visit Reasons: Anticoagulation Allergies No Known Allergies (No Known Allergies*) Allergy (Verified 05/30/25 09:49) Medication List - Last Reconciled 05/30/25 by Fabienne Armstrong RN aspirin 81 mg PO DAILY atorvastatin 80 mg PO BEDTIME clotrimazole 1% 1 appl topical BID furosemide (Lasix) 20 mg PO DAILY isosorbide mononitrate ER 30 mg PO DAILY lisinopril 5 mg PO DAILY metoprolol succinate ER 25 mg PO DAILY nitroglycerin 0.4 mg sublingual Q5M PRN timolol maleate 0.5% 1 drp ophthalmic (eye) DAILY warfarin 5 mg See Protocol PO DAILY 90 days Nursing Note INR: 1.9 out of therapeutic range of 2-3 Pt scheduled for Prostatectomy 06/09/25. Message to Dr Helms to question if lovenox bridge required. Awaiting response. states the surgeon ordered a 6 day hold of warfarin. Pt has an indwelling samaniego cath. Medications and supplements reviewed No changes in health, diet, medications, or supplements, Denies any signs and symptoms of bleeding or bruising or clotting. Bleeding, bruising, clotting discussed Nutritional guidance given to avoid greens today Dose: 9mg today then 6mg then pt to return Last dose of warfarin will be 06/02/25 F/U INR: 06/01/25. Pt will receive bridging instructions if lovenox required. Patient and verbalizes understanding of instructions with read back given . 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
--- OUTSIDE RECORDS SUMMARY | 2025-05-30 10:20 | XMS_ITS | Encounter Summary ---
Author Organization [facility] Address [address] [place] [address] Care Team Providers Care Singe Winder Name Role Phone Cj Barber DO Primary Care Provider [phone] Encounter Details Date Type Department Care Team (Late Contact Info) Description 02/26/2025 Lab Requisition [facility] - Main Lab [address] [facility] [place] [address] Fidencio Burroughs MD [address] [place] [phone] Encounter for other general examination Social History [...] Description 08/09/2025 1:10 PM EDT Office Visit [facility] [address] [place] [address] Shahid Ramos NP [address] [place] [address] documented as of this encounter Procedures Procedure [...] CBC auto differential (02/26/2025 6:35 AM EDT) [facility] WBC 11.9(H) 4.8 - 10.8 K/mcL LAB HEMETOLOGY METHOD 02/26/2025 11:12 AM [facility] LAB RBC 4.20(L) 4.50 - 5.50 M/mcL LAB HEMETOLOGY METHOD 02/26/2025 11:12 AM [facility] LAB Hemoglobin 12.6(L) 13.5 - 17.5 g/dL LAB HEMETOLOGY METHOD 02/26/2025 11:12 AM [facility] LAB Hematocrit 38.4(L) 42.0 - 54.0 % LAB HEMETOLOGY METHOD 02/26/2025 11:12 AM [facility] LAB MCV 92.5 79.0 - 98.0 FL LAB HEMETOLOGY METHOD 02/26/2025 11:12 AM [facility] LAB MCH 30.4 27.0 - 32.0 pcg LAB HEMETOLOGY METHOD 02/26/2025 11:12 AM [facility] LAB MCHC 32.8 32.0 - 37.0 g/dL LAB HEMETOLOGY METHOD 02/26/2025 11:12 AM [facility] LAB RDW 13.6 11.0 - 15.0 % LAB HEMETOLOGY METHOD 02/26/2025 11:12 AM [facility] LAB Platelets 02/26/2025 11:12 AM [facility] LAB Comment:Not measured. Platel ets appear adequate but clumped MPV 10.5 7.0 - 11.0 FL LAB HEMETOLOGY METHOD 02/26/2025 11:12 AM [facility] LAB NRBC 0.0 <1.0 % LAB HEMETOLOGY METHOD 02/26/2025 11:12 AM [facility] LAB NRBC Absolute 0.00 <0.10 K/mcL LAB HEMETOLOGY METHOD 02/26/2025 11:12 AM [facility] LAB Neutrophils Relative 78.4 % LAB HEMETOLOGY METHOD 02/26/2025 11:12 AM [facility] LAB Lymphocytes Relative 13.1 % LAB HEMETOLOGY METHOD 02/26/2025 11:12 AM [facility] LAB Monocytes Relative 7.0 % LAB HEMETOLOGY METHOD 02/26/2025 11:12 AM [facility] LAB Eosinophils Relative 1.0 % LAB HEMETOLOGY METHOD 02/26/2025 11:12 AM [facility] LAB Basophils Relative 0.2 % LAB HEMETOLOGY METHOD 02/26/2025 11:12 AM [facility] LAB Immature Granulocytes Relative 0.3 % LAB HEMETOLOGY METHOD 02/26/2025 11:12 AM [facility] LAB Neutrophils Absolute 9.33(H) 1.50 - 7.00 K/mcL LAB HEMETOLOGY METHOD 02/26/2025 11:12 AM [facility] LAB Lymphocytes Absolute 1.56 1.00 - 5.00 K/mcL LAB HEMETOLOGY METHOD 02/26/2025 11:12 AM [facility] LAB Monocytes Absolute 0.83 0.20 - 1.00 K/mcL LAB HEMETOLOGY METHOD 02/26/2025 11:12 AM [facility] LAB Eosinophils Absolute 0.12 0.00 - [...] ult [facility] LAB [address] [place] [address], * (ABNORMAL) Comprehensive metabolic panel (02/26/2025 6:35 AM EDT) Sodium 135 133 - 145 mmol/L LAB CHEMISTRY METHOD 02/26/2025 11:29 AM [facility] LAB Potassium 4.1 3.5 - 5.5 mmol/L LAB CHEMISTRY METHOD 02/26/2025 11:29 AM [facility] LAB Chloride 98 96 - 110 mmol/L LAB CHEMISTRY METHOD 02/26/2025 11:29 AM [facility] LAB CO2 33(H) 21 - 32 mmol/L LAB CHEMISTRY METHOD 02/26/2025 11:29 AM [facility] LAB Anion Gap 4 3 - 11 LAB CHEMISTRY METHOD 02/26/2025 11:29 AM [facility] LAB Glucose 83 70 - 100 mg/dL LAB CHEMISTRY METHOD 02/26/2025 11:29 AM [facility] LAB BUN 17 5 - 25 mg/dL LAB CHEMISTRY METHOD 02/26/2025 11:29 AM [facility] LAB Creatinine 0.50(L) 0.70 - 1.30 mg/dL LAB CHEMISTRY METHOD 02/26/2025 11:29 AM [facility] LAB eGFR 100 >=60 mL/min/1. 73m2 LAB CHEMISTRY METHOD 02/26/2025 11:29 AM [facility] LAB Comment:Calculation based on the Chronic Kidney Disease Epidemiology Collaboration (CKD-EPI) equation refit without adjustment for race. BUN/Creatinine Ratio 34.0 LAB CHEMISTRY METHOD 02/26/2025 11:29 AM [facility] LAB Calcium 8.7 8.5 - 10.5 mg/dL LAB CHEMISTRY METHOD 02/26/2025 11:29 AM [facility] LAB AST (SGOT) 59(H) 10 - 42 unit/L LAB CHEMISTRY METHOD 02/26/2025 11:29 AM [facility] LAB ALT (SGPT) 95(H) 10 - 60 unit/L LAB CHEMISTRY METHOD 02/26/2025 11:29 AM [facility] LAB Alkaline Phosphatase 105 42 - 121 unit/L LAB CHEMISTRY METHOD 02/26/2025 11:29 AM [facility] LAB Total Protein 5.8(L) 6.0 - 8.0 g/dL LAB CHEMISTRY METHOD 02/26/2025 11:29 AM [facility] LAB Albumin 3.1(L) 3.2 - 5.0 g/dL LAB CHEMISTRY METHOD 02/26/2025 11:29 AM [facility] LAB Total Bilirubin 1.0 0.0 - 1.4 mg/dL LAB CHEMISTRY METHOD 02/26/2025 11:29 AM [facility] LAB Blood Venous blood specimen / Unknown Venipuncture / Unknown 02/26/2025 6:35 AM EDT 02/26/2025 9:37 AM EDT Fidencio Burroughs MD LAB BLOOD ORDERABLES Final Res [facility] [address] [place] [address], documented in this encounter Visit Diagnoses Diagnosis Encounter for other general examination documented in this encounter Additional Health Concerns Infection 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
== END 2025-05-30 10:19 | disposition home or self-care (01) ==
LOC: HO.ACS 09:47
PROVIDERS: PCP Internal Medicine; Visit Provider Internal Medicine Medical Oncology
DX: Z79.01 Long term (current) use of anticoagulants (principal)

== ENCOUNTER → 2025-05-30 09:47 | Outpatient (BNVA) | payer MEDICARE, SELFPAY | PROVIDERS: PCP Internal Medicine; Visit Provider Internal Medicine Medical Oncology | DX: I48.0 Paroxysmal atrial fibrillation (principal); I48.91 Unspecified atrial fibrillation; I26.99 Other pulmonary embolism without acute cor pulmonale; Z51.81 Encounter for therapeutic drug level monitoring; Z79.01 Long term (current) use of anticoagulants | CPT/HCPCS: 85610; 99211 ==

== ENCOUNTER 2025-06-01 10:09 | Outpatient (REF) | payer MEDICARE, SELFPAY ==
--- OUTSIDE RECORDS SUMMARY | 2025-06-01 10:55 | XMS_ITS | Encounter Summary ---
Author Organization [facility] Address [address] [place] [address] Care Team Providers Care Horticulture Instructor Name Role Phone Cj Barber DO Primary Care Provider [phone] Encounter Details Date Type Department Care Team (Late Contact Info) Description 02/26/2025 Lab Requisition [facility] - Main Lab [address] [facility] [place] [address] Fidencio Burroughs MD [address] [place] [address] Encounter for other general examination Social History [...] Description 08/09/2025 1:10 PM EDT Office Visit [facility] [address] [place] [address] Shahid Ramos NP [address] [place] [address] documented as of this encounter Procedures Procedure [...] CBC auto differential (02/26/2025 6:35 AM EDT) [facility] WBC 11.9(H) 4.8 - 10.8 K/mcL LAB [...] LAB HEMETOLOGY METHOD 02/26/2025 11:12 AM T [facility] LAB Basophils Absolute 0.02 0.00 - 0.20 K/mcL LAB HEMETOLOGY METHOD 02/26/2025 11:12 AM EDT [facility] LAB Immature Granulocytes Absolute 0.04(H) 0.00 - 0.03 K/mcL LAB HEMETOLOGY METHOD 02/26/2025 11:12 AM T [facility] LAB Blood Venous blood specimen / Unknown Venipuncture / Unknown 02/26/2025 6:35 AM EDT 02/26/2025 9:37 AM EDT us Fidencio Burroughs MD LAB BLOOD ORDERABLES Final Res ult [facility] LAB [address] [place] [address], * (ABNORMAL) Comprehensive metabolic panel (02/26/2025 6:35 [...] LAB BLOOD ORDERABLES Final Res ult [facility] [address] [place] [address], documented in this encounter Visit Diagnoses Diagnosis Encounter for other general examination documented in this encounter Additional Health Concerns Infection Onset Date Last Indicated Resolved Time ESBL 05/25/2025 05/25/2025 documented as of this encounter Care Teams Horticulture Instructor Relationship Specialty Start Date End Date Cj Barber DO [address] [place] [phone] PCP - General 04/21/13 documented as of this encounter
[2025-06-01 11:44] LABS: Hematocrit 36.3 % (42.0-52.0); Hemoglobin 11.7 g/dl (14.0-18.0); Imm Gran Abs Auto 0.02 X10*3/uL (0.00-0.03); Imm Gran Pct Auto 0.3 % (0.0-0.4); Lymphocytes Absolute Auto 1.1 X10*3/uL (1.2-4.9); MANUAL DIFF FLAG SCAN; Mean Corpuscular HGB Conc 32.2 g/dl (31.0-36.0); Mean Corpuscular Hemoglobin 29.5 pg (27.0-33.0); Mean Corpuscular Volume 91.4 fL (80.0-98.0); NRBC Abs Auto 0.000 X10*3/uL (0.0-0.012); NRBC Pct Auto 0.0 /100WBC (0.0-0.2); PLT CLUMP 1; Red Blood Count 3.97 X10*6/uL (4.60-5.80); SCAN SMEAR FLAG 1
[2025-06-01 11:45] LABS: White Blood Count 6.4 X10*3/uL (4.8-10.8)
[2025-06-01 11:48] LABS: INTERNATIONAL NORM RATIO 2.3 (0.9-1.1); Prothrombin Time 26.9 SEC (10.9-12.4)
[2025-06-01 11:50] LABS: Partial Thromboplastin Time 33.1 SEC (26.0-36.8)
[2025-06-01 12:10] LABS: Anion Gap 9 (12-20); Blood Urea Nitrogen 12 mg/dL (9-16); Calcium 8.8 mg/dL (8.4-10.2); Carbon Dioxide 30 mmol/L (22-29); Chloride 106 mmol/L (96-108); Estimated Glomerular Filt Rate > 60; Potassium 4.6 mmol/L (3.3-5.1); Sodium 140 mmol/L (135-145)
[2025-06-01 12:54] LABS: Platelet Count 214 X10*3/uL (160-400)
== END 2025-06-01 10:10 | disposition home or self-care (01) ==
LOC: HO.LAB 10:09
PROVIDERS: PCP Internal Medicine; Visit Provider Urology
DX: Z79.01 Long term (current) use of anticoagulants (principal); N40.1 Benign prostatic hyperplasia with lower urinary tract symptoms
CPT/HCPCS: 36415; 80048; 85025; 85610; 85730; 86850; 86900; 86901; 99211

== ENCOUNTER 2025-06-01 10:32 | Outpatient (AMB) | payer MEDICARE, SELFPAY ==
[2025-06-01 10:45] LABS: Prothrombin Time Whole Bld POC 26.8 sec (11.1-13.5); ~PT, ~INR - Anti Coag Clinic 2.2 (0.9-1.1)
--- NOTE | 2025-06-01 11:20 | MHC.OFFVISCO ---
Intake Intake Visit Reasons: Anticoagulation Allergies No Known Allergies (No Known Allergies*) Allergy (Verified 06/01/25 10:32) Medication List - Last Reconciled 06/01/25 by Tena Sorto RN aspirin 81 mg PO DAILY atorvastatin 80 mg PO BEDTIME clotrimazole 1% 1 appl topical BID furosemide (Lasix) 20 mg PO DAILY isosorbide mononitrate ER 30 mg PO DAILY lisinopril 5 mg PO DAILY metoprolol succinate ER 25 mg PO DAILY nitroglycerin 0.4 mg sublingual Q5M PRN timolol maleate 0.5% 1 drp ophthalmic (eye) DAILY warfarin 5 mg See Protocol PO DAILY 90 days Nursing Note PT. STARTED CIPRO ON 05/30 FOR UTI. LAST WARFARIN DOSE IS ON 06/02 WITH 6 DAY HOLD FOR PROSTATECTOMY ON 06/09. PT.IS STILL WAITING FOR THE LOVENOX ORDER, BUT INSTRUCTIONS DISCUSSED AND GIVEN TO WITH GOOD UNDERSTANDING. TO CALL [facility] IF ANY QUESTIONS OR IF CLARIFICATION NEEDED ONCE SCRIPT IS RECEIVED. TO FOLLOW MD ORDERS POST-OP RE LOVENOX AND WARFARIN DOSING. WHEN RESUMING WARFARIN WILL NOT BOOST. FOLLOW-UP HERE ON 06/13/25. MESSAGE TO PCP TO PLEASE SEND SCRIPT LEIDY TODAY Anti-Coag Initial Assessment Social Hx Patient Tobacco Use Status: Former Tobacco user alcohol intake: current Alcohol intake frequency: does not drink Cardiovascular Hx: HTN, CT and Arrhythmias Lung Disease HX: DVT/PE (BILAT LOWER EXT.DVT AND SUBSEQ.PE) Musculoskeletal Hx: Arthritis Blood Disorder Hx: Hyperlipidemia Hx: Prostate (BPH PLANS PROSTATECTOMY ON 06/09/25) Cancer HX: No Psych. Illness/Depression: No Coding Level of Care Code Est Patient Level 1 Diagnoses Current use of anticoagulant therapy Z79.01 Assessment & Plan Assessment & Plan (1) Current use of anticoagulant therapy: Code(s): Z79.01 - alf (current) use of anticoagulants Category: Medical
== END 2025-06-01 11:28 | disposition home or self-care (01) ==
LOC: HO.ACS 10:32
PROVIDERS: PCP Internal Medicine; Visit Provider Internal Medicine Medical Oncology
DX: Z79.01 Long term (current) use of anticoagulants (principal)

== ENCOUNTER 2025-06-02 13:01 | Outpatient (AMB) | payer MEDICARE, SELFPAY ==
--- OUTSIDE RECORDS SUMMARY | 2025-06-02 13:03 | XMS_ITS | Encounter Summary ---
Author Organization [facility] Address [address] [place] [address] Care Team Providers Care Analytics Intern Name Role Phone Cj Barber DO Primary Care Provider [phone] Encounter Details Date Type Department Care Team (Late Contact Info) Description 02/26/2025 Lab Requisition [facility] - Main Lab 299 [facility] [place] [address] Fidencio Burroughs MD [address] [place] [phone] Encounter for other general examination Social History [...] Description 08/09/2025 1:10 PM EDT Office Visit [facility] [address] [place] [address] Shahid Ramos NP [address] [place] [address] documented as of this encounter Procedures Procedure [...] CBC auto differential (02/26/2025 6:35 AM EDT) [facility] WBC 11.9(H) 4.8 - 10.8 K/mcL LAB HEMETOLOGY METHOD 02/26/2025 11:12 AM [facility] LAB RBC 4.20(L) 4.50 - 5.50 M/mcL LAB HEMETOLOGY METHOD 02/26/2025 11:12 AM [facility] LAB Hemoglobin 12.6(L) 13.5 - 17.5 g/dL LAB HEMETOLOGY METHOD 02/26/2025 11:12 AM [facility] LAB Hematocrit 38.4(L) 42.0 - 54.0 % LAB HEMETOLOGY METHOD 02/26/2025 11:12 AM [facility] LAB MCV 92.5 79.0 - 98.0 FL LAB HEMETOLOGY METHOD 02/26/2025 11:12 AM [facility] LAB MCH 30.4 27.0 - 32.0 pcg LAB HEMETOLOGY METHOD 02/26/2025 11:12 AM [facility] LAB MCHC 32.8 32.0 - 37.0 g/dL LAB HEMETOLOGY METHOD 02/26/2025 11:12 AM [facility] LAB RDW 13.6 11.0 - 15.0 % LAB HEMETOLOGY METHOD 02/26/2025 11:12 AM [facility] LAB Platelets 02/26/2025 11:12 AM [facility] LAB Comment:Not measured. Platel ets appear adequate but clumped MPV 10.5 7.0 - 11.0 FL LAB HEMETOLOGY METHOD 02/26/2025 11:12 AM [facility] LAB NRBC 0.0 <1.0 % LAB HEMETOLOGY METHOD 02/26/2025 11:12 AM [facility] LAB NRBC Absolute 0.00 <0.10 K/mcL LAB HEMETOLOGY METHOD 02/26/2025 11:12 AM [facility] LAB Neutrophils Relative 78.4 % LAB HEMETOLOGY METHOD 02/26/2025 11:12 AM [facility] LAB Lymphocytes Relative 13.1 % LAB HEMETOLOGY METHOD 02/26/2025 11:12 AM [facility] LAB Monocytes Relative 7.0 % LAB HEMETOLOGY METHOD 02/26/2025 11:12 AM [facility] LAB Eosinophils Relative 1.0 % LAB HEMETOLOGY METHOD 02/26/2025 11:12 AM [facility] LAB Basophils Relative 0.2 % LAB HEMETOLOGY METHOD 02/26/2025 11:12 AM [facility] LAB Immature Granulocytes Relative 0.3 % LAB HEMETOLOGY METHOD 02/26/2025 11:12 AM [facility] LAB Neutrophils Absolute 9.33(H) 1.50 - 7.00 K/mcL LAB HEMETOLOGY METHOD 02/26/2025 11:12 AM [facility] LAB Lymphocytes Absolute 1.56 1.00 - 5.00 K/mcL LAB HEMETOLOGY METHOD 02/26/2025 11:12 AM [facility] LAB Monocytes Absolute 0.83 0.20 - 1.00 K/mcL LAB HEMETOLOGY METHOD 02/26/2025 11:12 AM [facility] LAB Eosinophils Absolute 0.12 0.00 - 0.50 K/mcL LAB HEMETOLOGY METHOD 02/26/2025 11:12 AM T [facility] LAB Basophils Absolute 0.02 0.00 - 0.20 K/mcL LAB HEMETOLOGY METHOD 02/26/2025 11:12 AM EDT [facility] LAB Immature Granulocytes Absolute 0.04(H) 0.00 - 0.03 K/mcL LAB HEMETOLOGY METHOD 02/26/2025 11:12 AM T [facility] LAB Blood Venous blood specimen / Unknown Venipuncture / Unknown 02/26/2025 6:35 AM EDT 02/26/2025 9:37 AM EDT us Fidencio Burroughs MD LAB BLOOD ORDERABLES Final Res ult [facility] LAB [address] [place] [address], * (ABNORMAL) Comprehensive metabolic panel (02/26/2025 6:35 AM EDT) Sodium 135 133 - 145 mmol/L LAB CHEMISTRY METHOD 02/26/2025 11:29 AM [facility] LAB Potassium 4.1 3.5 - 5.5 mmol/L LAB CHEMISTRY METHOD 02/26/2025 11:29 AM [facility] LAB Chloride 98 96 - 110 mmol/L LAB CHEMISTRY METHOD 02/26/2025 11:29 AM [facility] LAB CO2 33(H) 21 - 32 mmol/L LAB CHEMISTRY METHOD 02/26/2025 11:29 AM [facility] Anion Gap 4 3 - 11 LAB CHEMISTRY METHOD 02/26/2025 11:29 AM [facility] LAB Glucose 83 70 - 100 mg/dL LAB CHEMISTRY METHOD 02/26/2025 11:29 AM [facility] BUN 17 5 - 25 mg/dL LAB CHEMISTRY METHOD 02/26/2025 11:29 AM [facility] LAB Creatinine 0.50(L) 0.70 - 1.30 mg/dL LAB CHEMISTRY METHOD 02/26/2025 11:29 AM [facility] LAB eGFR 100 >=60 mL/min/1. 73m2 LAB CHEMISTRY METHOD 02/26/2025 11:29 AM [facility] LAB Comment:Calculation based on the Chronic Kidney Disease Epidemiology Collaboration (CKD-EPI) equation refit without adjustment for race. BUN/Creatinine Ratio 34.0 LAB CHEMISTRY METHOD 02/26/2025 11:29 AM [facility] LAB Calcium 8.7 8.5 - 10.5 mg/dL LAB CHEMISTRY METHOD 02/26/2025 11:29 AM [facility] LAB AST (SGOT) 59(H) 10 - 42 unit/L LAB CHEMISTRY METHOD 02/26/2025 11:29 AM [facility] LAB ALT (SGPT) 95(H) 10 - 60 unit/L LAB CHEMISTRY METHOD 02/26/2025 11:29 AM [facility] LAB Alkaline Phosphatase 105 42 - 121 unit/L LAB CHEMISTRY METHOD 02/26/2025 11:29 AM [facility] Total Protein 5.8(L) 6.0 - 8.0 g/dL LAB CHEMISTRY METHOD 02/26/2025 11:29 AM [facility] LAB Albumin 3.1(L) 3.2 - 5.0 g/dL LAB CHEMISTRY METHOD 02/26/2025 11:29 AM [facility] LAB Total Bilirubin 1.0 0.0 - 1.4 mg/dL LAB CHEMISTRY METHOD 02/26/2025 11:29 AM [facility] LAB Blood Venous blood specimen / Unknown Venipuncture / Unknown 02/26/2025 6:35 AM EDT 02/26/2025 9:37 AM EDT Fidencio Burroughs MD LAB BLOOD ORDERABLES Final Res ult [facility] [address] [place] [address], documented in this encounter Visit Diagnoses Diagnosis Encounter for other general examination documented in this encounter Additional Health Concerns Infection Onset Date Last Indicated Resolved Time ESBL 05/25/2025 05/25/2025 documented as of this encounter Care Teams Analytics Intern Relationship Specialty Start Date End Date Cj Barber DO [address] [place] [phone] PCP - General 04/21/13 documented as of this encounter
--- NOTE | 2025-06-02 13:04 | MHC.PC.OV ---
Vital Signs 06/02/25 13:14 Height 5 ft 5 in Weight 161 lb 6 oz BMI 26.9 BP 98/50 L Blood Pressure Location Rt brachial Position Sitting Respiration 16 Pulse 60 Pulse Source Pulse Oximeter Temp 97.8 F Temp Source Temporal Artery Scan Pulse Oximetry (%) 99 Oxygen Delivery Method Room Air Intake Visit Reasons: Prostatectomy 06/09, Dr. Mercado Intake Note: Visit Reason: Pre-Op Surgery for prostatectomy on June 09, 2025. Air Brake Man Required: No Lining Printer: Not Required per policy Accompanied by: Spouse Allergies No Known Allergies (No Known Allergies*) Allergy (Verified 06/02/25 14:28) Medication List - Last Reconciled 06/02/25 by Haritha Ni PA-C aspirin 81 mg PO DAILY atorvastatin 80 mg PO BEDTIME clotrimazole 1% 1 appl topical BID furosemide (Lasix) 20 mg PO DAILY isosorbide mononitrate ER 30 mg PO DAILY lisinopril 5 mg PO DAILY metoprolol succinate ER 25 mg PO DAILY nitroglycerin 0.4 mg sublingual Q5M PRN timolol maleate 0.5% 1 drp ophthalmic (eye) DAILY warfarin 5 mg See Protocol PO DAILY 90 days Tobacco use date assessed: 05/13/25 Fall risk assessment: No Falls in past year Last assessed Fall Risk: 06/02/25 Dental Screening Dental Screen Date: 05/13/25 Did you have a dental visit in the last 12 months?: No Did you have a dental problem in the last 6 months where you did not have access to dental care?: No Was dental information given to patient?: Patient declined HPI Prostatectomy 06/09, Dr. Mercado HPI Details The patient is an 84-year-old male presenting for preoperative evaluation for prostatectomy scheduled on June 09. 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 The patient has a history of hypertension and non-ST elevation myocardial infarction (NSTEMI) that occurred in December 2024 at [facility]. He was placed on aspirin therapy and has been compliant with daily intake. He also has coronary artery disease with a history of stent placement and percutaneous transluminal coronary angioplasty (PTCA). The patient has paroxysmal atrial fibrillation and experiences chronic dyspnea on exertion. He has hyperlipidemia and a history of blood clot, for which he is on anticoagulation therapy. He has a history of vitamin D deficiency and gastroesophageal reflux disease. The patient also reports muscular deconditioning, lower extremity weakness, and gait instability, necessitating the use of a walker for mobility. Recent laboratory tests indicate chronic anemia, with hemoglobin and hematocrit levels improving from 10.9 and 36.6 in April to 11.7 and 36.6, respectively. His PT INR was 2.2, and kidney function tests were within normal limits. Social History - Mobility: Uses a walker for ambulation due to lower extremity weakness and gait instability. [facility] Medical History (Updated 06/02/25 @ 15:35 by Haritha Ni PA-C) Anemia Hyperlipidemia Gross hematuria Urinary retention Enlarged prostate Pre-op evaluation Lower extremity weakness Physical deconditioning Muscular deconditioning Bilateral arm weakness DVT (deep venous thrombosis) On Coumadin for atrial fibrillation Chronic indwelling Nolan catheter Weakness Hospital discharge follow-up Dyspnea on exertion Vitamin D deficiency Vasovagal syncope Elevated PSA GERD (gastroesophageal reflux disease) Mild hypercholesterolemia Hypertension Coronary artery disease Walker as ambulation aid BPH (benign prostatic hyperplasia) Indwelling Nolan catheter calcification UTI (urinary tract infection) NSTEMI (non-ST elevated myocardial infarction) 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 Mother No problems noted. Social History Household Members: Spouse and Children Housing: House Do you presently have visiting nurse or other home services: Yes Unable to assess alcohol history related to: Unknown Alcohol intake: current Alcohol intake frequency: does not drink Patient Tobacco Use Status: Former Tobacco user service: No Current occupational status: retired Current occupational exposures/hazards: No Cognitive needs: Yes (walker) Hearing needs: Yes (b/l hearing aids) Vision needs: Yes (rx glasses) Questionnaire Thrive Questionnaire Date Thrive assessed: 03/14/25 DREW-7 AMB Questionnaire DREW-7 Date DREW - 7 assessed: 03/14/25 Source: Developed by Trang Sue B.W. Keo, Ravi Thakur and colleagues, with an educational cortez from [employer]. Review of Systems Const Details: - Cardiovascular: Reports chronic dyspnea on exertion. Denies chest pain or orthopnea. - Respiratory: Denies chronic lung disease. Physical exam (Primary Care) Vital Signs: Last Vital Signs Temp 97.8 F 06/02/25 13:14 Pulse 60 06/02/25 13:14 Resp 16 06/02/25 13:14 BP 98/50 L 06/02/25 13:14 Pulse Ox 99 06/02/25 13:14 Oxygen Delivery Method Room Air 06/02/25 13:14 Care Plan Goal for BP management: <140/90 at Goal BMI result Body Mass Index 26.9 Tobacco/Smoking Status: Tobacco use Status Tobacco use date assessed 05/13/25 06/02/25 13:11 Patient Tobacco Use Status Former Tobacco user 06/02/25 13:11 Thrive Assessment: Date of Thrive Assessment Date Thrive assessed 03/14/25 06/02/25 13:11 Const Other: Appearance: Alert. Oriented X3. No acute distress. Head: Normal external exam. Normocephalic. Atraumatic. Eyes: Pupils are equal, round, and reactive to light. Extraocular movements intact. Conjunctiva and sclera normal. Eyelids normal. Throat: Pharynx normal. Uvula midline. Moist mucous membranes. Neck: Normal inspection. Neck supple. Full range of motion. Cardiovascular: Normal heart rate and rhythm. Heart sound normal. Pulses normal throughout. Respiratory: No respiratory distress. Painless inspiration. Breath sounds normal. No wheezes/rales/rhonchi noted. Chest nontender. No accessory muscle usage noted or decreased air movement noted. Abdomen: Soft and nontender. No distention noted. No organomegaly noted. Back: Full range of motion noted. Skin: Skin warm and dry. Normal skin color. Normal skin turgor. No rashes/lesions/lacerations noted. Extremities: No lower extremity edema. Chronic Muscular deconditioning and lower extremity weakness noted. Neuro: Oriented X 3. Chronic gait instability at baseline. Moving all extremities. Chronic indwelling Nolan catheter present due to urinary retention. Results Reviewed Results Reviewed: - Labs: Hemoglobin 11.7, Hematocrit 36.6, PT INR 2.2, kidney function tests normal. - Cardiac: EKG showed normal sinus rhythm with no new changes. - Cardiac: Echocardiogram showed preserved left ventricular systolic function. 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, unspecified laterality, unspecified vein I82.509 DVT location: lower extremity Affected thrombotic vein of extremity: unspecified vein of extremity Chronicity: chronic Laterality: unspecified laterality Vitamin D deficiency E55.9 GERD (gastroesophageal reflux disease) K21.9 Chronic indwelling Nolan catheter Z97.8 Anemia D64.9 Time Spent (min) 45 Assessment & Plan Assessment & Plan (1) Pre-op evaluation: Code(s): Z01.818 - Encounter for other preprocedural examination Category: Medical (2) Enlarged prostate: Code(s): N40.0 - Benign prostatic hyperplasia without lower urinary tract symptoms Category: Medical Plan: The patient is scheduled for prostatectomy on June 09 at [facility] under the care of Dr. Hollis. He is currently living with a chronic indwelling Nolan catheter due to urinary retention. (3) Hypertension: Code(s): I10 - Essential (primary) hypertension Category: Medical Plan: The patient has a history of hypertension and is on a regimen that includes aspirin, atorvastatin, and lisinopril. Condition is chronic and stable continue to monitor (4) NSTEMI (non-ST elevated myocardial infarction): Comment: On 12/2024 at [facility] on 81 mg of aspirin daily Code(s): I21.4 - Non-ST elevation (NSTEMI) myocardial infarction Category: Medical Plan: The patient experienced an NSTEMI in December 2024 and was placed on aspirin therapy. He has been compliant with daily aspirin intake. Patient is instructed to continue aspirin and hold warfarin 6 days prior to surgery. Condition is chronic and stable continue to monitor. (5) Coronary artery disease: Comment: s/p stenting many years ago Code(s): I25.10 - Atherosclerotic heart disease of andreafski coronary artery without angina pectoris Category: Medical Plan: The patient has a history of coronary artery disease with previous stent placement and PTCA. Patient is instructed to continue aspirin and hold warfarin 6 days prior to surgery. Condition is chronic and stable continue to monitor. (6) PAF (paroxysmal atrial fibrillation): Code(s): I48.0 - Paroxysmal atrial fibrillation Category: Medical Plan: The patient has paroxysmal atrial fibrillation and is on anticoagulation therapy. Patient is instructed to continue aspirin and hold warfarin 6 days prior to surgery. Condition is chronic and stable continue to monitor. (7) Hyperlipidemia: Code(s): E78.5 - Hyperlipidemia, unspecified Category: Medical Plan: The patient is on atorvastatin for hyperlipidemia management. Condition is chronic and stable continue to monitor. (8) DVT (deep venous thrombosis): Code(s): I82.409 - Acute embolism and thrombosis of unspecified deep veins of unspecified lower extremity Category: Medical Qualifiers: DVT location: lower extremity Affected thrombotic vein of extremity: unspecified vein of extremity Chronicity: chronic Laterality: unspecified laterality Qualified Code(s): I82.509 - Chronic embolism and thrombosis of unspecified deep veins of unspecified lower extremity Plan: The patient has a history of blood clot and is on anticoagulation therapy. Patient is instructed to continue aspirin and hold warfarin 6 days prior to surgery. Condition is chronic and stable continue to monitor. (9) Vitamin D deficiency: Code(s): E55.9 - Vitamin D deficiency, unspecified Category: Medical Plan: The patient has a history of vitamin D deficiency. Condition is chronic and stable will continue to monitor. (10) GERD (gastroesophageal reflux disease): Code(s): K21.9 - Gastro-esophageal reflux disease without esophagitis Category: Medical Plan: The patient has a history of gastroesophageal reflux disease. Condition is chronic and stable will continue to monitor. (11) Chronic indwelling Nolan catheter: Code(s): Z97.8 - Presence of other specified devices Category: Medical Plan: The patient has a chronic indwelling Nolan catheter due to urinary retention. (12) Anemia: Code(s): D64.9 - Anemia, unspecified Category: Medical Plan: Recent lab results indicate chronic anemia with improved hemoglobin and hematocrit levels. Condition is chronic and stable will continue to monitor. Plan Plan Patient was informed and verbally consented to the use of an ambient scribe for clinic note documentation during this visit. 1. Prostate Cancer The patient is scheduled for prostatectomy on June 09 at [facility] under the care of Dr. Hollis. He is currently living with a chronic indwelling Nolan catheter due to urinary retention. 2. Hypertension The patient has a history of hypertension and is on a regimen that includes aspirin, atorvastatin, and lisinopril. 3. Non-St Elevation Myocardial Infarction (Nstemi) The patient experienced an NSTEMI in December 2024 and was placed on aspirin therapy. He has been compliant with daily aspirin intake. 4. Coronary Artery Disease The patient has a history of coronary artery disease with previous stent placement and PTCA. 5. Paroxysmal Atrial Fibrillation The patient has paroxysmal atrial fibrillation and is on anticoagulation therapy. 6. Hyperlipidemia The patient is on atorvastatin for hyperlipidemia management. 7. History Of Blood Clot The patient has a history of blood clot and is on anticoagulation therapy. 8. Vitamin D Deficiency The patient has a history of vitamin D deficiency. 9. Gastroesophageal Reflux Disease The patient has a history of gastroesophageal reflux disease. 10. Chronic Indwelling Nolan Catheter The patient has a chronic indwelling Nolan catheter due to urinary retention. 11. Anemia Recent lab results indicate chronic anemia with improved hemoglobin and hematocrit levels. I discussed with the patient the upcoming prostatectomy scheduled for June 09, including the need to continue aspirin and hold warfarin six days prior to surgery. We reviewed his cardiac status, noting that his EKG showed normal sinus rhythm and that he is at low cardiac risk for the procedure. I advised him to continue with his current medications, including Iodosorb and metoprolol, and to avoid large fluid shifts to prevent ischemic events. We also discussed the importance of follow-up care post-surgery, recommending a follow-up visit within a month. Regarding preop clearance, the patient is at acceptable risk for proposed surgery. Reviewed with the patient that no surgery is completely free of wrist and that this examination is to assist the surgeon and reviewing informed consent. Patient is medically cleared at this time for surgery on 06/09/2025 for prostatectomy. You can review cardiology notes as well as they cleared the patient last month. Patient Instructions: - Continue taking aspirin as prescribed. - Hold warfarin six days before surgery. - Follow up with the clinic within a month after surgery. - Avoid large fluid shifts and maintain current medication regimen to prevent ischemic events.
[2025-06-02 13:14] VITALS: BP 98/50; PULSE 60; RESP 16; TEMP 36.6; O2SAT 99; BMI 26.9
== END 2025-06-02 13:40 | disposition home or self-care (01) ==
LOC: HO.HMCSH 13:01
PROVIDERS: PCP Internal Medicine; Visit Provider Physician Assistant Medical
DX: I48.0 Paroxysmal atrial fibrillation (principal); I82.509 Chronic embolism and thrombosis of unspecified deep veins of unspecified lower extremity; Z01.818 Encounter for other preprocedural examination; N40.0 Benign prostatic hyperplasia without lower urinary tract symptoms; I25.2 Old myocardial infarction; I10 Essential (primary) hypertension; I25.10 Atherosclerotic heart disease of native coronary artery without angina pectoris; E78.5 Hyperlipidemia, unspecified; E55.9 Vitamin D deficiency, unspecified; K21.9 Gastro-esophageal reflux disease without esophagitis; Z97.8 Presence of other specified devices; D64.9 Anemia, unspecified

== ENCOUNTER → 2025-06-02 13:01 | Outpatient (BNVA) | payer MEDICARE, SELFPAY | PROVIDERS: PCP Internal Medicine; Visit Provider Physician Assistant Medical | DX: Z01.818 Encounter for other preprocedural examination (principal); N40.1 Benign prostatic hyperplasia with lower urinary tract symptoms; R33.9 Retention of urine, unspecified; R33.8 Other retention of urine; I10 Essential (primary) hypertension; I25.2 Old myocardial infarction; I25.10 Atherosclerotic heart disease of native coronary artery without angina pectoris; I48.0 Paroxysmal atrial fibrillation; E78.5 Hyperlipidemia, unspecified; E55.9 Vitamin D deficiency, unspecified; K21.9 Gastro-esophageal reflux disease without esophagitis; R53.81 Other malaise; R26.89 Other abnormalities of gait and mobility; I82.509 Chronic embolism and thrombosis of unspecified deep veins of unspecified lower extremity; D64.9 Anemia, unspecified; Z85.46 Personal history of malignant neoplasm of prostate; Z96.0 Presence of urogenital implants; Z79.82 Long term (current) use of aspirin; Z79.01 Long term (current) use of anticoagulants | CPT/HCPCS: 99212 ==

== ENCOUNTER 2025-06-15 10:22 | Outpatient (AMB) | payer MEDICARE, SELFPAY ==
--- NOTE | 2025-06-15 10:47 | MHC.OFFVISCO ---
Intake Intake Visit Reasons: Anticoagulation Allergies No Known Allergies (No Known Allergies*) Allergy (Verified 06/15/25 10:43) Medication List - Last Reconciled 06/15/25 by Maria Ines Frazier RN aspirin 81 mg PO DAILY atorvastatin 80 mg PO BEDTIME clotrimazole 1% 1 appl topical BID enoxaparin (Lovenox) 80 mg (0.8 mL) subcut Q12H 10 days enoxaparin (Lovenox) 70 mg (0.7 mL) subcut Q12H 12 days furosemide (Lasix) 20 mg PO DAILY isosorbide mononitrate ER 30 mg PO DAILY lisinopril 5 mg PO DAILY metoprolol succinate ER 25 mg PO DAILY nitroglycerin 0.4 mg sublingual Q5M PRN timolol maleate 0.5% 1 drp ophthalmic (eye) DAILY warfarin 5 mg See Protocol PO DAILY 90 days Nursing Note INR 1.7-?? out of therapeutic range 2-3 Medications and supplements reviewed Patient status: pt s/p prostatectomy on 06/09/25 with six day hold of warfarin and lovenox bridge pre and post proc pt states samaniego cath- urine dark cranberry in color Medications or supplements: no changes Diet: same Denies any signs and symptoms of bleeding or clotting or unusual bruising Bleeding, bruising, clotting discussed Nutritional guidance given: no greens, eat reds to raise Dose: warfarin 9mg today and 6mg tomm F/U INR Date : friday06/17/25? Patient verbalizing understanding of instructions given. pt amb with walker, acompanied by . she states pt inr in [facility] yesterday was 1.8- [facility] was giving pt 6mg warfarin daily she was instructed by acs to take 9mg yesterday pt states last dose of lovenox was yesterday am- composed note to pcp regarding ? cont lovenox, t/c to pcp office, spoke to mercedes hardin. awaiting return call second call to pcp office regarding lovenox at 4pm. 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
[2025-06-15 10:48] LABS: Prothrombin Time Whole Bld POC 20.3 sec (11.1-13.5); ~PT, ~INR - Anti Coag Clinic 1.7 (0.9-1.1)
--- OUTSIDE RECORDS SUMMARY | 2025-06-15 11:26 | XMS_ITS | Encounter Summary ---
Author Organization [facility] Address [address] [place] [address] Care Team Providers Care Gizzard Skin Remover Name Role Phone Cj Barber DO Primary Care Provider [phone] Encounter Details Date Type Department Care Team (Late Contact Info) Description 02/26/2025 Lab Requisition [facility] - Main Lab [address] [facility] [place] [address] Fidencio Burroughs MD [address] [place] [id number] Encounter for other general examination Social History [...] Description 08/09/2025 1:10 PM EDT Office Visit [facility] [address] [place] [address] Shahid Ramos NP [address] [place] [address] documented as of this encounter Procedures Procedure [...] CBC auto differential (02/26/2025 6:35 AM EDT) [facility] WBC 11.9(H) 4.8 - 10.8 K/mcL LAB HEMETOLOGY METHOD 02/26/2025 11:12 AM [facility] RBC 4.20(L) 4.50 - 5.50 M/mcL LAB HEMETOLOGY METHOD 02/26/2025 11:12 AM [facility] Hemoglobin 12.6(L) 13.5 - 17.5 g/dL LAB HEMETOLOGY METHOD 02/26/2025 11:12 AM [facility] Hematocrit 38.4(L) 42.0 - 54.0 % LAB HEMETOLOGY METHOD 02/26/2025 11:12 AM [facility] MCV 92.5 79.0 - 98.0 FL LAB HEMETOLOGY METHOD 02/26/2025 11:12 AM [facility] MCH 30.4 27.0 - 32.0 pcg LAB HEMETOLOGY METHOD 02/26/2025 11:12 AM [facility] MCHC 32.8 32.0 - 37.0 g/dL LAB HEMETOLOGY METHOD 02/26/2025 11:12 AM [facility] RDW 13.6 11.0 - 15.0 % LAB HEMETOLOGY METHOD 02/26/2025 11:12 AM [facility] Platelets 02/26/2025 11:12 AM [facility] Comment:Not measured. Platel ets appear adequate but clumped MPV 10.5 7.0 - 11.0 FL LAB HEMETOLOGY METHOD 02/26/2025 11:12 AM [facility] NRBC 0.0 <1.0 % LAB HEMETOLOGY METHOD 02/26/2025 11:12 AM [facility] NRBC Absolute 0.00 <0.10 K/mcL LAB HEMETOLOGY METHOD 02/26/2025 11:12 AM [facility] Neutrophils Relative 78.4 % LAB HEMETOLOGY METHOD 02/26/2025 11:12 AM [facility] Lymphocytes Relative 13.1 % LAB HEMETOLOGY METHOD 02/26/2025 11:12 AM [facility] Monocytes Relative 7.0 % LAB HEMETOLOGY METHOD 02/26/2025 11:12 AM [facility] Eosinophils Relative 1.0 % LAB HEMETOLOGY METHOD 02/26/2025 11:12 AM [facility] Basophils Relative 0.2 % LAB HEMETOLOGY METHOD 02/26/2025 11:12 AM [facility] Immature Granulocytes Relative 0.3 % LAB HEMETOLOGY METHOD 02/26/2025 11:12 AM [facility] Neutrophils Absolute 9.33(H) 1.50 - 7.00 K/mcL LAB HEMETOLOGY METHOD 02/26/2025 11:12 AM [facility] Lymphocytes Absolute 1.56 1.00 - 5.00 K/mcL LAB HEMETOLOGY METHOD 02/26/2025 11:12 AM [facility] Monocytes Absolute 0.83 0.20 - 1.00 K/mcL LAB HEMETOLOGY METHOD 02/26/2025 11:12 AM [facility] Eosinophils Absolute 0.12 0.00 - 0.50 K/mcL LAB HEMETOLOGY METHOD 02/26/2025 11:12 AM T [facility] Basophils Absolute 0.02 0.00 - 0.20 K/mcL LAB HEMETOLOGY METHOD 02/26/2025 11:12 AM EDT [facility] Immature Granulocytes Absolute 0.04(H) 0.00 - 0.03 K/mcL LAB HEMETOLOGY METHOD 02/26/2025 11:12 AM T [facility] Blood Venous blood specimen / Unknown Venipuncture / Unknown 02/26/2025 6:35 AM EDT 02/26/2025 9:37 AM EDT us Fidencio Burroughs MD LAB BLOOD ORDERABLES Final Res ult [facility] [address] [place] [address], * (ABNORMAL) Comprehensive metabolic panel (02/26/2025 6:35 AM EDT) Sodium 135 133 - 145 mmol/L LAB CHEMISTRY METHOD 02/26/2025 11:29 AM [facility] Potassium 4.1 3.5 - 5.5 mmol/L LAB CHEMISTRY METHOD 02/26/2025 11:29 AM [facility] Chloride 98 96 - 110 mmol/L LAB CHEMISTRY METHOD 02/26/2025 11:29 AM [facility] CO2 33(H) 21 - 32 mmol/L LAB CHEMISTRY METHOD 02/26/2025 11:29 AM [facility] Anion Gap 4 3 - 11 LAB CHEMISTRY METHOD 02/26/2025 11:29 AM [facility] Glucose 83 70 - 100 mg/dL LAB CHEMISTRY METHOD 02/26/2025 11:29 AM [facility] BUN 17 5 - 25 mg/dL LAB CHEMISTRY METHOD 02/26/2025 11:29 AM [facility] Creatinine 0.50(L) 0.70 - 1.30 mg/dL LAB CHEMISTRY METHOD 02/26/2025 11:29 AM [facility] eGFR 100 >=60 mL/min/1. 73m2 LAB CHEMISTRY METHOD 02/26/2025 11:29 AM [facility] Comment:Calculation based on the Chronic Kidney Disease Epidemiology Collaboration (CKD-EPI) equation refit without adjustment for race. BUN/Creatinine Ratio 34.0 LAB CHEMISTRY METHOD 02/26/2025 11:29 AM [facility] Calcium 8.7 8.5 - 10.5 mg/dL LAB CHEMISTRY METHOD 02/26/2025 11:29 AM [facility] AST (SGOT) 59(H) 10 - 42 unit/L LAB CHEMISTRY METHOD 02/26/2025 11:29 AM [facility] ALT (SGPT) 95(H) 10 - 60 unit/L LAB CHEMISTRY METHOD 02/26/2025 11:29 AM [facility] Alkaline Phosphatase 105 42 - 121 unit/L LAB CHEMISTRY METHOD 02/26/2025 11:29 AM [facility] Total Protein 5.8(L) 6.0 - 8.0 g/dL LAB CHEMISTRY METHOD 02/26/2025 11:29 AM [facility] Albumin 3.1(L) 3.2 - 5.0 g/dL LAB CHEMISTRY METHOD 02/26/2025 11:29 AM [facility] Total Bilirubin 1.0 0.0 - 1.4 mg/dL LAB CHEMISTRY METHOD 02/26/2025 11:29 AM [facility] Blood Venous blood specimen / Unknown Venipuncture / Unknown 02/26/2025 6:35 AM EDT 02/26/2025 9:37 AM EDT Fidencio Burroughs MD LAB BLOOD ORDERABLES Final Res ult [facility] [address] [place] [address], documented in this encounter Visit Diagnoses Diagnosis Encounter for other general examination documented in this encounter Additional Health Concerns Infection Onset 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
== END 2025-06-15 11:11 | disposition home or self-care (01) ==
LOC: HO.ACS 10:22
PROVIDERS: PCP Internal Medicine; Visit Provider Internal Medicine Medical Oncology
DX: Z79.01 Long term (current) use of anticoagulants (principal)

== ENCOUNTER → 2025-06-15 10:22 | Outpatient (BNVA) | payer MEDICARE, SELFPAY | PROVIDERS: PCP Internal Medicine; Visit Provider Internal Medicine Medical Oncology | DX: I82.409 Acute embolism and thrombosis of unspecified deep veins of unspecified lower extremity (principal); I48.91 Unspecified atrial fibrillation; I26.99 Other pulmonary embolism without acute cor pulmonale; Z79.01 Long term (current) use of anticoagulants; Z51.81 Encounter for therapeutic drug level monitoring | CPT/HCPCS: 85610; 99211 ==

== ENCOUNTER 2025-07-21 09:21 | Outpatient (AMB) | payer MEDICARE, SELFPAY ==
--- NOTE | 2025-07-21 09:29 | MHC.OFFVISCO ---
Intake Intake Visit Reasons: Anticoagulation Allergies No Known Allergies (No Known Allergies*) Allergy (Verified 07/21/25 09:28) Medication List - Last Reconciled 07/21/25 by Melina Omer RN aspirin 81 mg PO DAILY atorvastatin 80 mg PO BEDTIME clotrimazole 1% 1 appl topical BID furosemide (Lasix) 20 mg PO DAILY isosorbide mononitrate ER 30 mg PO DAILY lisinopril 5 mg PO DAILY metoprolol succinate ER 25 mg PO DAILY nitroglycerin 0.4 mg sublingual Q5M PRN timolol maleate 0.5% 1 drp ophthalmic (eye) DAILY warfarin 5 mg See Protocol PO DAILY 90 days Nursing Note INR received from [facility] physical therapist Nikki- pt being d/c today from their services INR: 2.0 in therapeutic range Medications and supplements reviewed No changes in health, diet, medications, or supplements, Denies any signs and symptoms of bleeding or bruising or clotting. Bleeding, bruising, clotting discussed Nutritional guidance given - eat orange and reds to help raise the INR Dose: keep same 9mg x 1 day/ 6mg x 6 days F/U INR: 2 weeks with ACS Patient verbalizes understanding of instructions given Anti-Coag Initial Assessment Social Hx Patient Tobacco Use Status: Former Tobacco user alcohol intake: current Alcohol intake frequency: does not drink Cardiovascular Hx: HTN, NH and Arrhythmias Lung Disease HX: DVT/PE Musculoskeletal Hx: Arthritis Blood Disorder Hx: Hyperlipidemia Hx: Prostate Cancer HX: No Psych. 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
--- OUTSIDE RECORDS SUMMARY | 2025-07-21 10:22 | XMS_ITS | Encounter Summary ---
Author Organization [facility] Address [address] [place] [address] Care Team Providers Care Police Communications Operator Name Role Phone Cj Barber DO Primary Care Provider [phone] Encounter Details Date Type Department Care Team (Late Contact Info) Description 02/26/2025 Lab Requisition [facility] - Main Lab 299 [facility] [place] [address] Fidencio Burroughs MD [address] [place] [phone] Encounter for other general examination Social History [...] Description 08/09/2025 1:10 PM EDT Office Visit [facility] [address] [place] [address] Shahid Ramos NP [address] [place] [address] documented as of this encounter Procedures Procedure [...] CBC auto differential (02/26/2025 6:35 AM EDT) [facility] WBC 11.9(H) 4.8 - 10.8 K/mcL LAB HEMETOLOGY METHOD 02/26/2025 11:12 AM [facility] RBC 4.20(L) 4.50 - 5.50 M/mcL LAB HEMETOLOGY METHOD 02/26/2025 11:12 AM [facility] Hemoglobin 12.6(L) 13.5 - 17.5 g/dL LAB HEMETOLOGY METHOD 02/26/2025 11:12 AM [facility] Hematocrit 38.4(L) 42.0 - 54.0 % LAB HEMETOLOGY METHOD 02/26/2025 11:12 AM [facility] MCV 92.5 79.0 - 98.0 FL LAB HEMETOLOGY METHOD 02/26/2025 11:12 AM [facility] MCH 30.4 27.0 - 32.0 pcg LAB HEMETOLOGY METHOD 02/26/2025 11:12 AM [facility] MCHC 32.8 32.0 - 37.0 g/dL LAB HEMETOLOGY METHOD 02/26/2025 11:12 AM [facility] RDW 13.6 11.0 - 15.0 % LAB HEMETOLOGY METHOD 02/26/2025 11:12 AM [facility] Platelets 02/26/2025 11:12 AM [facility] Comment:Not measured. Platel ets appear adequate but clumped MPV 10.5 7.0 - 11.0 FL LAB HEMETOLOGY METHOD 02/26/2025 11:12 AM [facility] NRBC 0.0 <1.0 % LAB HEMETOLOGY METHOD 02/26/2025 11:12 AM [facility] NRBC Absolute 0.00 <0.10 K/mcL LAB HEMETOLOGY METHOD 02/26/2025 11:12 AM [facility] Neutrophils Relative 78.4 % LAB HEMETOLOGY METHOD 02/26/2025 11:12 AM [facility] Lymphocytes Relative 13.1 % LAB HEMETOLOGY METHOD 02/26/2025 11:12 AM [facility] Monocytes Relative 7.0 % LAB HEMETOLOGY METHOD 02/26/2025 11:12 AM [facility] Eosinophils Relative 1.0 % LAB HEMETOLOGY METHOD 02/26/2025 11:12 AM [facility] Basophils Relative 0.2 % LAB HEMETOLOGY METHOD 02/26/2025 11:12 AM [facility] Immature Granulocytes Relative 0.3 % LAB HEMETOLOGY METHOD 02/26/2025 11:12 AM [facility] Neutrophils Absolute 9.33(H) 1.50 - 7.00 K/mcL LAB HEMETOLOGY METHOD 02/26/2025 11:12 AM [facility] Lymphocytes Absolute 1.56 1.00 - 5.00 K/mcL LAB HEMETOLOGY METHOD 02/26/2025 11:12 AM [facility] Monocytes Absolute 0.83 0.20 - 1.00 K/mcL LAB HEMETOLOGY METHOD 02/26/2025 11:12 AM [facility] Eosinophils Absolute 0.12 0.00 - 0.50 K/mcL LAB HEMETOLOGY METHOD 02/26/2025 11:[address] [facility] Basophils Absolute 0.02 0.00 - 0.20 K/[facility] LAB HEMETOLOGY METHOD 02/26/2025 11:[address] [facility] Immature Granulocytes Absolute 0.04(H) 0.00 - 0.03 K/[facility] LAB HEMETOLOGY METHOD 02/26/2025 11:[address] [facility] Blood Venous blood specimen / Unknown Venipuncture / Unknown 02/26/2025 6:35 AM EDT 02/26/2025 9:37 AM EDT us Fidencio Burroughs MD LAB BLOOD ORDERABLES Final Res ult [facility] [address] [place] [address], * (ABNORMAL) Comprehensive metabolic panel (02/26/2025 6:35 AM EDT) Sodium 135 133 - 145 mmol/L LAB CHEMISTRY METHOD 02/26/2025 11:29 AM [facility] Potassium 4.1 3.5 - 5.5 mmol/L LAB CHEMISTRY METHOD 02/26/2025 11:29 AM [facility] Chloride 98 96 - 110 mmol/L LAB CHEMISTRY METHOD 02/26/2025 11:29 AM [facility] CO2 33(H) 21 - 32 mmol/L LAB CHEMISTRY METHOD 02/26/2025 11:29 AM [facility] Anion Gap 4 3 - 11 LAB CHEMISTRY METHOD 02/26/2025 11:29 AM [facility] Glucose 83 70 - 100 mg/dL LAB CHEMISTRY METHOD 02/26/2025 11:29 AM [facility] BUN 17 5 - 25 mg/dL LAB CHEMISTRY METHOD 02/26/2025 11:29 AM [facility] Creatinine 0.50(L) 0.70 - 1.30 mg/dL LAB CHEMISTRY METHOD 02/26/2025 11:29 AM [facility] eGFR 100 >=60 mL/min/1. 73m2 LAB CHEMISTRY METHOD 02/26/2025 11:29 AM [facility] Comment:Calculation based on the Chronic Kidney Disease Epidemiology Collaboration (CKD-EPI) equation refit without adjustment for race. BUN/Creatinine Ratio 34.0 LAB CHEMISTRY METHOD 02/26/2025 11:29 AM [facility] Calcium 8.7 8.5 - 10.5 mg/dL LAB CHEMISTRY METHOD 02/26/2025 11:29 AM [facility] AST (SGOT) 59(H) 10 - 42 unit/L LAB CHEMISTRY METHOD 02/26/2025 11:29 AM [facility] ALT (SGPT) 95(H) 10 - 60 unit/L LAB CHEMISTRY METHOD 02/26/2025 11:29 AM [facility] Alkaline Phosphatase 105 42 - 121 unit/L LAB CHEMISTRY METHOD 02/26/2025 11:29 AM [facility] Total Protein 5.8(L) 6.0 - 8.0 g/dL LAB CHEMISTRY METHOD 02/26/2025 11:29 AM [facility] Albumin 3.1(L) 3.2 - 5.0 g/dL LAB CHEMISTRY METHOD 02/26/2025 11:29 AM [facility] Total Bilirubin 1.0 0.0 - 1.4 mg/dL LAB CHEMISTRY METHOD 02/26/2025 11:29 AM [facility] Blood Venous blood specimen / Unknown Venipuncture / Unknown 02/26/2025 6:35 AM EDT 02/26/2025 9:37 AM EDT us Fidencio Burroughs MD LAB BLOOD ORDERABLES Final Res ult [facility] [address] [place] [address], documented in this encounter Visit Diagnoses Diagnosis Encounter for other general examination documented in this encounter Additional Health Concerns Infection Onset Date 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
--- OUTSIDE RECORDS SUMMARY | 2025-07-21 10:22 | XMS_ITS | Encounter Summary ---
Author Organization [facility] Address [address] [place] [address] Care Team Providers Care Rocket Engine Tester Name Role Phone Cj Barber DO Primary Care Provider [phone] Encounter Details Date Type Department Care Team (Late Contact Info) Description 02/24/2025 Lab Requisition [facility] - Main Lab 299 [facility] [place] [address] Fidencio Burroughs MD [address] [place] [phone] Encounter for other general examination Social History [...] Description 08/09/2025 1:10 PM EDT Office Visit [facility] [address] [place] [address] Shahid Ramos NP [address] [place] [address] documented as of this encounter [...] K/mcL LAB HEMETOLOGY METHOD 02/24/2025 10:22 AM [facility] RBC 4.20(L) 4.50 - 5.50 M/mcL LAB HEMETOLOGY METHOD 02/24/2025 10:22 AM [facility] Hemoglobin 12.6(L) 13.5 - 17.5 g/dL LAB HEMETOLOGY METHOD 02/24/2025 10:22 AM [facility] Hematocrit 37.1(L) 42.0 - 54.0 % LAB HEMETOLOGY METHOD 02/24/2025 10:22 AM [facility] MCV 89.4 79.0 - 98.0 FL LAB HEMETOLOGY METHOD 02/24/2025 10:22 AM [facility] MCH 30.4 27.0 - 32.0 pcg LAB HEMETOLOGY METHOD 02/24/2025 10:22 AM [facility] MCHC 34.0 32.0 - 37.0 g/dL LAB HEMETOLOGY METHOD 02/24/2025 10:22 AM [facility] RDW 13.3 11.0 - 15.0 % LAB HEMETOLOGY METHOD 02/24/2025 10:22 AM [facility] Platelets 02/24/2025 10:22 AM [facility] Comment:Not measured. Platel ets appear adequate but clumped MPV 10.3 7.0 - 11.0 FL LAB HEMETOLOGY METHOD 02/24/2025 10:22 AM EDT [facility] NRBC 0.0 <1.0 % LAB HEMETOLOGY METHOD 02/24/2025 10:22 AM [facility] NRBC Absolute 0.00 <0.10 K/mcL LAB HEMETOLOGY METHOD 02/24/2025 10:22 AM [facility] Blood Venous blood specimen / Unknown Venipuncture / Unknown 02/24/2025 5:01 AM EDT 02/24/2025 8:10 AM EDT us Fidencio Burroughs MD LAB BLOOD ORDERABLES Final Res ult [facility] [address] [place] [address], [place] [phone] * (ABNORMAL) Comprehensive metabolic panel (02/24/2025 5:01 AM EDT) Sodium 135 133 - 145 mmol/L LAB CHEMISTRY METHOD 02/24/2025 10:11 AM [facility] Potassium 3.9 3.5 - 5.5 mmol/L LAB CHEMISTRY METHOD 02/24/2025 10:11 AM [facility] Chloride 98 96 - 110 mmol/L LAB CHEMISTRY METHOD 02/24/2025 10:11 AM [facility] CO2 29 21 - 32 mmol/L LAB CHEMISTRY METHOD 02/24/2025 10:11 AM [facility] Anion Gap 8 3 - 11 LAB CHEMISTRY METHOD 02/24/2025 10:11 AM [facility] Glucose 73 70 - 100 mg/dL LAB CHEMISTRY METHOD 02/24/2025 10:11 AM [facility] BUN 18 5 - 25 mg/dL LAB CHEMISTRY METHOD 02/24/2025 10:11 AM [facility] Creatinine 0.56(L) 0.70 - 1.30 mg/dL LAB CHEMISTRY METHOD 02/24/2025 10:11 AM [facility] eGFR 97 >=60 mL/min/1. 73m2 LAB CHEMISTRY METHOD 02/24/2025 10:11 AM [facility] Comment:Calculation based on the Chronic Kidney Disease Epidemiology Collaboration (CKD-EPI) equation refit without adjustment for race. BUN/Creatinine Ratio 32.1 LAB CHEMISTRY METHOD 02/24/2025 10:11 AM [facility] Calcium 8.8 8.5 - 10.5 mg/dL LAB CHEMISTRY METHOD 02/24/2025 10:11 AM [facility] AST (SGOT) 33 10 - 42 unit/L LAB CHEMISTRY METHOD 02/24/2025 10:11 AM [facility] ALT (SGPT) 55 10 - 60 unit/L LAB CHEMISTRY METHOD 02/24/2025 10:11 AM [facility] Alkaline Phosphatase 100 42 - 121 unit/L LAB CHEMISTRY METHOD 02/24/2025 10:11 AM [facility] Total Protein 5.4(L) 6.0 - 8.0 g/dL LAB CHEMISTRY METHOD 02/24/2025 10:11 AM [facility] Albumin 2.9(L) 3.2 - 5.0 g/dL LAB CHEMISTRY METHOD 02/24/2025 10:11 AM [facility] Total Bilirubin 0.7 0.0 - 1.4 mg/dL LAB CHEMISTRY METHOD 02/24/2025 10:11 AM [facility] Blood Venous blood specimen / Unknown Venipuncture / Unknown 02/24/2025 5:01 AM EDT 02/24/2025 8:10 AM EDT us Fidencio Burroughs MD LAB BLOOD ORDERABLES Final Res ult [facility] [address] [place] [address], documented in this encounter Visit Diagnoses Diagnosis Encounter for other general examination documented in this encounter Additional Health Concerns Infection Onset 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
--- OUTSIDE RECORDS SUMMARY | 2025-07-21 10:22 | XMS_ITS | Encounter Summary ---
Author Organization [facility] Address [address] [place] [address] Care Team Providers Care Bead Trimmer Name Role Phone Cj Barber DO Primary Care Provider [phone] Encounter Details Date Type Department Care Team (Late Contact Info) Description 03/01/2025 Lab Requisition [facility] - Main Lab 299 [facility] [place] [address] Fidencio Burroughs MD [address] [place] [phone] Encounter for other general examination Social History [...] Description 08/09/2025 1:10 PM EDT Office Visit [facility]iology Associates [facility] [address] [place] [address] Shahid Ramos NP [address] [place] [address] documented as of this encounter [...] albicans/du bliniensis( A) 03/07/2025 12:41 PM EDT [facility] Comment: Edited result: Previously reported as Yeast on 03/07/2025 at 1047 EDT. Swab Penile structure / Unknown 03/01/2025 5:22 AM EDT 03/01/2025 10:41 AM EDT us Fidencio Burroughs MD LAB MICROBIOLOGY - GENERAL ORD ERABLES Final Result [facility] [address] [place] [address], [place] [phone] * (ABNORMAL) Culture wound with gram stain (03/01/2025 5:22 AM EDT) Culture, Wound Proteus mirabilis(A) BAUDILIO 03/09/2025 9:56 AM EDT [facility] Comment: The organism value for this result has been updated. These results have been appended to the previously preliminary verified report. This is an edited result. Previous organism was Gram negative bacilli on 03/02/2025 at 1315 EDT. Edited result: Previously reported as Proteus species on 03/03/2025 at 1152 EDT. Culture, Wound Enterococcus faecalis(A) BAUDILIO 03/09/2025 9:56 AM EDT [facility] Comment: The organism value for this result has been updated. These results have been appended to the previously preliminary verified report. This is an edited result. Previous organism was Streptococcus Gamma non hemolytic on 03/06/2025 at 0911 EDT. Culture, Wound Pseudomonas aeruginosa(A) BAUDILIO 03/09/2025 9:56 AM EDT [facility] Comment: The organism value for this result has been updated. These results have been appended to the previously preliminary verified report. This is an edited result. Previous organism was Gram negative bacilli on 03/07/2025 at 1012 EDT. Gram Stain Result Moderate Polymorphonuclear leukocytes 03/09/2025 9:56 AM EDT [facility] Gram Stain Result Few Epithelial cells 03/09/2025 9:56 AM EDT [facility] Gram Stain Result No organisms seen 03/09/2025 9:56 AM EDT [facility] Swab Penile structure / Unknown [...] MICROBIOLOGY - GENERAL ORD ERABLES Final Result [facility] [address] [place] [address], documented in this encounter Visit Diagnoses Diagnosis Encounter for other general examination documented in this encounter Additional Health Concerns Infection Onset Date 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
--- OUTSIDE RECORDS SUMMARY | 2025-07-21 10:22 | XMS_ITS | Encounter Summary ---
Author Organization [facility] Address [address] [place] [address] Care Team Providers Care Support Services Tech Name Role Phone Cj Barber DO Primary Care Provider [phone] Encounter Details Date Type Department Care Team (Late Contact Info) Description 03/01/[address] [facility] - Main Lab 299 [facility] [place] [address] Fidencio Burroughs MD [address] [place] [address] Encounter for other general examination Social History [...] Description 08/09/2025 1:10 PM EDT Office Visit [facility]iology Associates [facility] [address] [place] [address] Shahid Ramos NP [address] [place] [address] documented as of this encounter [...] CBC auto differential (03/01/2025 5:29 AM EDT) [facility] WBC 8.8 4.8 - 10.8 K/mcL LAB HEMETOLOGY METHOD 03/01/2025 11:58 AM [facility] RBC 3.60(L) 4.50 - 5.50 M/mcL LAB HEMETOLOGY METHOD 03/01/2025 11:58 AM [facility] Hemoglobin 11.0(L) 13.5 - 17.5 g/dL LAB HEMETOLOGY METHOD 03/01/2025 11:58 AM [facility] Hematocrit 33.0(L) 42.0 - 54.0 % LAB HEMETOLOGY METHOD 03/01/2025 11:58 AM [facility] MCV 91.2 79.0 - 98.0 FL LAB HEMETOLOGY METHOD 03/01/2025 11:58 AM [facility] MCH 30.4 27.0 - 32.0 pcg LAB HEMETOLOGY METHOD 03/01/2025 11:58 AM [facility] MCHC 33.3 32.0 - 37.0 g/dL LAB HEMETOLOGY METHOD 03/01/2025 11:58 AM [facility] RDW 13.9 11.0 - 15.0 % LAB HEMETOLOGY METHOD 03/01/2025 11:58 AM [facility] Platelets 03/01/2025 11:58 AM [facility] Comment:Not measured. Unable to quantitate due to platelet clumping MPV 10.2 7.0 - 11.0 FL LAB HEMETOLOGY METHOD 03/01/2025 11:58 AM [facility] NRBC 0.0 <1.0 % LAB HEMETOLOGY METHOD 03/01/2025 11:58 AM [facility] NRBC Absolute 0.00 <0.10 K/mcL LAB HEMETOLOGY METHOD 03/01/2025 11:58 AM [facility] Neutrophils Relative 76.0 % LAB HEMETOLOGY METHOD 03/01/2025 11:58 AM [facility] Lymphocytes Relative 13.4 % LAB HEMETOLOGY METHOD 03/01/2025 11:58 AM [facility] Monocytes Relative 9.0 % LAB HEMETOLOGY METHOD 03/01/2025 11:58 AM [facility] Eosinophils Relative 1.1 % LAB HEMETOLOGY METHOD 03/01/2025 11:58 AM [facility] Basophils Relative 0.2 % LAB HEMETOLOGY METHOD 03/01/2025 11:58 AM [facility] Immature Granulocytes Relative 0.3 % LAB HEMETOLOGY METHOD 03/01/2025 11:58 AM [facility] Neutrophils Absolute 6.69 1.50 - 7.00 K/mcL LAB HEMETOLOGY METHOD 03/01/2025 11:58 AM [facility] Lymphocytes Absolute 1.18 1.00 - 5.00 K/mcL LAB HEMETOLOGY METHOD 03/01/2025 11:58 AM [facility] Monocytes Absolute 0.79 0.20 - 1.00 K/mcL LAB HEMETOLOGY METHOD 03/01/2025 11:58 AM [facility] Eosinophils Absolute 0.10 0.00 - 0.50 K/mcL LAB HEMETOLOGY METHOD 03/01/2025 11:58 AM EDT [facility] Basophils Absolute 0.02 0.00 - 0.20 K/mcL LAB HEMETOLOGY METHOD 03/01/2025 11:58 AM EDT [facility] Immature Granulocytes Absolute 0.03 0.00 - 0.03 K/mcL LAB HEMETOLOGY METHOD 03/01/2025 11:58 AM EDT [facility] Blood Venous blood specimen / Unknown Venipuncture / Unknown 03/01/2025 5:29 AM EDT 03/01/2025 9:52 AM EDT us Fidencio Burroughs MD LAB BLOOD ORDERABLES Final Res ult [facility] [address] [place] [address], * (ABNORMAL) Comprehensive metabolic panel (03/01/2025 5:29 AM EDT) Sodium 137 133 - 145 mmol/L LAB CHEMISTRY METHOD 03/01/2025 12:08 PM [facility] Potassium 4.1 3.5 - 5.5 mmol/L LAB CHEMISTRY METHOD 03/01/2025 12:08 PM [facility] Chloride 101 96 - 110 mmol/L LAB CHEMISTRY METHOD 03/01/2025 12:08 PM [facility] CO2 30 21 - 32 mmol/L LAB CHEMISTRY METHOD 03/01/2025 12:08 PM [facility] Anion Gap 6 3 - 11 LAB CHEMISTRY METHOD 03/01/2025 12:08 PM [facility] Glucose 82 70 - 100 mg/dL LAB CHEMISTRY METHOD 03/01/2025 12:08 PM [facility] BUN 15 5 - 25 mg/dL LAB CHEMISTRY METHOD 03/01/2025 12:08 PM [facility] Creatinine 0.41(L) 0.70 - 1.30 mg/dL LAB CHEMISTRY METHOD 03/01/2025 12:08 PM [facility] eGFR 106 >=60 mL/min/1. 73m2 LAB CHEMISTRY METHOD 03/01/2025 12:08 PM [facility] Comment:Calculation based on the Chronic Kidney Disease Epidemiology Collaboration (CKD-EPI) equation refit without adjustment for race. BUN/Creatinine Ratio 36.6 LAB CHEMISTRY METHOD 03/01/2025 12:08 PM [facility] Calcium 8.7 8.5 - 10.5 mg/dL LAB CHEMISTRY METHOD 03/01/2025 12:08 PM [facility] AST (SGOT) 37 10 - 42 unit/L LAB CHEMISTRY METHOD 03/01/2025 12:08 PM [facility] ALT (SGPT) 64(H) 10 - 60 unit/L LAB CHEMISTRY METHOD 03/01/2025 12:08 PM [facility] Alkaline Phosphatase 105 42 - 121 unit/L LAB CHEMISTRY METHOD 03/01/2025 12:08 PM [facility] Total Protein 5.1(L) 6.0 - 8.0 g/dL LAB CHEMISTRY METHOD 03/01/2025 12:08 PM [facility] Albumin 2.7(L) 3.2 - 5.0 g/dL LAB CHEMISTRY METHOD 03/01/2025 12:08 PM [facility] Total Bilirubin 1.1 0.0 - 1.4 mg/dL LAB CHEMISTRY METHOD 03/01/2025 12:08 PM [facility] Blood Venous blood specimen / Unknown Venipuncture / Unknown 03/01/2025 5:29 AM EDT 03/01/2025 9:52 AM EDT us Fidencio Burroughs MD LAB BLOOD ORDERABLES Final Res ult [facility] [address] [place] [address], documented in this encounter Visit Diagnoses Diagnosis Encounter for other general examination documented in this encounter Additional Health Concerns 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
--- OUTSIDE RECORDS SUMMARY | 2025-07-21 10:22 | XMS_ITS | Encounter Summary ---
Author Organization [facility] Address [address] [place] [address] Care Team Providers Care Inspector Ball Points Name Role Phone Cj Barber DO Primary Care Provider [phone] Encounter Details Date Type Department Care Team (Late Contact Info) Description 02/19/2025 Lab Requisition [facility] - Main Lab [address] [facility] [place] [address] Fidencio Burroughs MD [address] [place] [phone] Encounter for other general examination Social History [...] Description 08/09/2025 1:10 PM EDT Office Visit [facility] [address] [place] [address] Shahid Ramos NP [address] [place] [address] documented as of this encounter [...] CBC auto differential (02/19/2025 5:42 AM EDT) [facility] WBC 10.5 4.8 - 10.8 K/mcL LAB HEMETOLOGY METHOD 02/19/2025 12:54 PM EDT [facility] RBC 5.10 4.50 - 5.50 M/mcL LAB HEMETOLOGY METHOD 02/19/2025 12:54 PM EDT [facility] Hemoglobin 15.6 13.5 - 17.5 g/dL LAB HEMETOLOGY METHOD 02/19/2025 12:54 PM EDT [facility] Hematocrit 47.5 42.0 - 54.0 % LAB HEMETOLOGY METHOD 02/19/2025 12:54 PM EDT [facility] MCV 92.4 79.0 - 98.0 FL LAB HEMETOLOGY METHOD 02/19/2025 12:54 PM EDT [facility] MCH 30.4 27.0 - 32.0 pcg LAB HEMETOLOGY METHOD 02/19/2025 12:54 PM EDT [facility] MCHC 32.8 32.0 - 37.0 g/dL LAB HEMETOLOGY METHOD 02/19/2025 12:54 PM T [facility] RDW 12.8 11.0 - 15.0 % LAB HEMETOLOGY METHOD 02/19/2025 12:54 PM EDT [facility] Platelets 02/19/2025 12:54 PM EDT [facility] Comment:Not measured. Platel ets appear adequate but clumped Suggest drawing blue top tube with CBC MPV 10.7 7.0 - 11.0 FL LAB HEMETOLOGY METHOD [facility] NRBC 0.0 <1.0 % LAB HEMETOLOGY METHOD 02/19/2025 12:54 PM EDT [facility] NRBC Absolute 0.00 <0.10 [...] % LAB HEMETOLOGY METHOD [facility] Neutrophils Absolute 8.77(H) 1.50 - 7.00 K/mcL LAB HEMETOLOGY METHOD 02/19/2025 [facility] Lymphocytes Absolute 1.10 1.00 - 5.00 K/mcL LAB HEMETOLOGY METHOD 02/19[facility]2025 [facility] Monocytes Absolute 0.57 0.20 - 1.00 K/mcL LAB HEMETOLOGY METHOD 02/19/2025 12:54 PM EDT [facility] Eosinophils Absolute 0.00 0.00 - 0.50 K/[facility] LAB HEMETOLOGY METHOD 02/19/2025 12:54 PM EDT [facility] Basophils Absolute 0.01 0.00 - 0.20 K/[facility] LAB HEMETOLOGY METHOD 02/19/2025 12:54 PM EDT [facility] Immature Granulocytes Absolute 0.05(H) 0.00 - 0.03 K/[facility] LAB HEMETOLOGY METHOD 02/19/2025 12:54 PM EDT [facility] Blood Venous blood specimen / Unknown Venipuncture / Unknown 02/19/2025 5:42 AM EDT 02/19/2025 9:50 AM EDT Fidencio Burroughs MD LAB BLOOD ORDERABLES Final Res ult Performing Organization Address City/[facility]/ZIP Co de Phone Number [facility] [address] [place] [address], [place] [phone] * Magnesium (02/19/2025 5:42 AM EDT) Magnesium 2.4 1.9 - 2.6 mg/dL LAB CHEMISTRY METHOD 02/19/2025 12:23 PM EDT [facility] Blood Venous blood specimen / Unknown Venipuncture / Unknown 02/19/2025 5:42 AM EDT 02/19/2025 9:50 AM EDT Fidencio Burroughs MD LAB BLOOD ORDERABLES Final Res ult [facility] [address] [place] [address], [place] [phone] * (ABNORMAL) Comprehensive metabolic panel (02/19/2025 5:42 [...] [facility] Comment:Calculation based on the Chronic Kidney Disease Epidemiology Collaboration (CKD-EPI) equation refit without adjustment for race. BUN/Creatinine Ratio 32.9 LAB [...] LAB CHEMISTRY METHOD 02/19/2025 12:41 PM EDT [facility] Total Protein 6.2 6.0 - 8.0 g/dL LAB CHEMISTRY METHOD 02/19/2025 12:41 PM EDT [facility] Albumin 3.3 3.2 - 5.0 g/dL LAB CHEMISTRY METHOD 02/19/2025 12:41 PM EDT [facility] Total Bilirubin 0.7 0.0 - 1.4 mg/dL LAB CHEMISTRY METHOD 02/19/2025 12:41 PM EDT [facility] Blood Venous blood specimen / Unknown Venipuncture / Unknown 02/19/2025 5:42 AM EDT 02/19/2025 9:50 AM EDT us Fidencio Burroughs MD LAB BLOOD ORDERABLES Final Res ult [facility] [address] [place] [address], [place] [phone] documented in this encounter Visit Diagnoses Diagnosis Encounter for other general examination documented in this encounter Additional Health Concerns 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
--- OUTSIDE RECORDS SUMMARY | 2025-07-21 10:22 | XMS_ITS | Encounter Summary ---
Author Organization [facility] Address [address] [place] [address] Care Team Providers Care Hebrew Professor Name Role Phone Cj Barber DO Primary Care Provider Encounter Details Date Type Department Care Team (Late Contact Info) Description 01/15/2025 Lab Requisition [facility] - Main Lab [address] [facility] [place] [address] Fidencio Burroughs MD [address] [place] [phone] Encounter for other general examination Social History [...] Description 08/09/2025 1:10 PM EDT Office Visit [facility] [address] [place] [address] Shahid Ramos NP [address] [place] [address] documented as of this encounter [...] CBC auto differential (01/15/2025 6:39 AM EST) [facility] WBC 8.0 4.8 - 10.8 K/mcL LAB [...] LAB HEMETOLOGY METHOD 01/15/2025 11:56 AM EST [facility] Basophils Absolute 0.02 0.00 - 0.20 K/[facility] LAB HEMETOLOGY METHOD 01/15/2025 11:56 AM EST [facility] Immature Granulocytes Absolute 0.02 0.00 - 0.03 K/[facility] LAB HEMETOLOGY METHOD 01/15/2025 11:56 AM EST [facility] Blood Venous blood specimen / Unknown Venipuncture / Unknown 01/15/2025 6:39 AM EST 01/15/2025 10:03 AM EST us Fidencio Burroughs MD LAB BLOOD ORDERABLES Final Res ult Performing Organization Address [facility]/ZIP Co de Phone Number [facility] [address] [place] [address], [place] [phone] * Magnesium (01/15/2025 6:39 AM EST) Pathologist [facility] Magnesium 2.0 1.9 - 2.6 mg/dL LAB CHEMISTRY METHOD 01/15/2025 11:40 AM EST [facility] Blood Venous blood specimen / Unknown Venipuncture / Unknown 01/15/2025 6:39 AM EST 01/15/2025 10:03 AM EST us Fidencio Burroughs MD LAB BLOOD ORDERABLES Final Res ult [facility] [address] [place] [address], [place] [phone] * (ABNORMAL) Comprehensive metabolic panel (01/15/2025 6:39 AM EST) Pathologist [facility] Sodium 136 133 - 145 mmol/L LAB CHEMISTRY METHOD 01/15/2025 11:40 AM EST [facility] Potassium 3.9 3.5 - 5.5 mmol/L LAB CHEMISTRY METHOD 01/15/2025 11:40 AM [facility] Chloride 103 96 - 110 [...] AM [facility] Comment:Calculation based on the Chronic Kidney Disease Epidemiology Collaboration (CKD-EPI) equation refit without adjustment for race. BUN/Creatinine Ratio 31.3 LAB [...] LAB CHEMISTRY METHOD 01/15/2025 11:40 AM EST [facility] Albumin 2.9(L) 3.2 - 5.0 g/dL LAB CHEMISTRY METHOD 01/15/2025 11:40 AM EST [facility] Total Bilirubin 1.0 0.0 - 1.4 mg/dL LAB CHEMISTRY METHOD 01/15/2025 11:40 AM EST [facility] Blood Venous blood specimen / Unknown Venipuncture / Unknown 01/15/2025 6:39 AM EST 01/15/2025 10:03 AM EST us Fidencio Burroughs MD LAB BLOOD ORDERABLES Final Res ult [facility] ([facility] [address] [place] [address], documented in this encounter Visit Diagnoses Diagnosis Encounter for other general examination documented in this encounter Additional Health Concerns 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
--- OUTSIDE RECORDS SUMMARY | 2025-07-21 10:22 | XMS_ITS | Clinical Summary ---
Author Organization [employer] Address [address] [facility] [address] [place] [address] Phone Care Team Providers Care Manager Ambulatory Name Role Phone Cj Barber DO Primary Care Provider [phone] Allergies No known active allergies Medications aspirin [...] crush or chew. 90 tablet 2 Active lisinopriL (PRINIVIL,ZESTRI L) 5 mg tabletIndication s:Coronary artery disease involving tolowa dee-ni' coronary artery of tolowa dee-ni' heart without angina pectoris Take 1 tablet (5 mg total) by mouth 1 (one) time each day. Active warfarin (COUMADIN) 5 mg tabletIndication s:PAF (paroxysmal atrial fibrillation) (CMS/HCC V24, CMS/HCC V28),Acute pulmonary embolism, unspecified pulmonary embolism type, unspecified whether acute cor pulmonale present (CMS/HCC V24, CMS/HCC V28) Take by mouth 1 (one) time each day with dinner. Pt has visiting nurse that comes and check his INR Active Active Problems Problem Noted Date Diagnosed Date Preop cardiovascular exam 04/27/2025 Assessment & Plan (04/27/2025 4:33 PM EDT): The patient is here for preop cardiovascular examination prior to a proctectomy in June 2025. Pre-procedure EKG was completed today and showed no new changes - sinus rhythm. Per the Carrillo Cardiac Risk Index the patient is low for this procedure. He is stable from a cardiovascular standpoint and is not recommended for any preoperative testing - stress testing last year showed low risk findings and echocardiogram showed preserved LV systolic function. Please continue with his aspirin perioperatively if possible. He may discontinue with warfarin 5 day prior to surgery. Continue with isosorbide and metoprolol perioperatively. Please avoid large fluid shifts, sustained tachycardia or profound anemia in order to prevent demand ischemic events. PAF (paroxysmal atrial fibri llation) (CMS/HCC V24, CMS/HCC V28) 04/20/2025 Assessment & Plan (04/27/2025 4:33 PM EDT): Paroxysmal atrial fibrillation. Asymptomatic. CHADSVASc - 6. Continue with metoprolol and warfarin. Orders: ECG 12 lead Acute pulmonary embolism (CMS/HCC V24, CMS/HCC V 28) 04/20/2025 Overview (04/27/2025): January 2025 - admitted to [facility] with gait imbalance found to have a UTI, paroxysmal atrial fibrillation and provoked acute pulmonary embolism of the left lower lobe; transferred to [facility] and felt to be elevated risk for surgery therefore recommended conservative therapy for now and transitioned patient to warfarin and aspirin Assessment & Plan (04/27/2025 4:33 PM EDT): Continue with warfarin for at least three months for PE, but would continue with warfarin anyways for atrial fibrillation. Continue aspirin indefinitely. Hypercholesterolemia 07/24/2022 Assessment & Plan (04/27/2025 4:33 PM EDT): Continue with atorvastatin. 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 status post right coronary artery stenting April 2024 treadmill nuclear stress test MPHR 84% no chest pain no ischemic EKG changes imaging showing presence of a small in size mild intensity reversible perfusion defect in the apical inferolateral wall and apex suggestive of ischemia, no evidence of fixed perfusion defects with preserved LV systolic function 2023 - echocardiogram showed preserved LV systolic function LVEF 65-75%, no RWMA, left atrial dilatation, preserved RV systolic function, mild tricuspid valve regurgitation, mild pulmonary artery hypertension with a pulmonary artery systolic pressure 55 mmHg Assessment & Plan (04/27/2025 4:33 PM EDT): Catheterization from 2011 during inferior STEMI with RCA stent. Last Nuclear stress test in 2023 showed small in size and mild in intensity reversible perfusion defect in the apical inferolateral wall and apex suggestive of ischemia. Echocardiogram from 2023 showed preserved LV systolic function LVEF 65-75% with no obvious wall motion abnormalities. No anginal symptoms. Continue with aspirin, atorvastatin, warfarin, isosorbide, metoprolol, lisinopril and furosemide. We discussed risk reduction through lifestyle choices including healthy diet, routine exercise and weight management. Assessment & Plan (11/30/2024 12:28 PM EST): The patient has a history of circumflex stenting in 2003 and right coronary artery stenting in the setting of an inferior RI in 2011. He has not had overt [...] Encounters Date Type Department Care Team Description 05/25/2025 Lab Requisition [facility] - Main Lab [address] [facility] [place] [phone] Hilton Saavedra PA Urinary tract infection, site not specified; Benign prostatic hyperplasia with lower urinary tract symptoms 04/27/2025 Telephone [facility]iology [facility] [address] [facility] [address] [place] [address] La Nena Syed MD 04/25/2025 2:10 PM EDT Office Visit [facility]iology [facility] [address] [facility] [address] [place] [address] Shahid Ramos NP Preop cardiovascular exam (Primary Dx); PAF (paroxysmal atrial fibrillation) ([facility] V24, [facility] V28); Acute pulmonary embolism, unspecified pulmonary embolism type, unspecified whether acute cor pulmonale present ([facility] V24, [facility] V28); Coronary artery disease involving tolowa dee-ni' coronary artery of tolowa dee-ni' heart without angina pectoris; Hypercholesterolemia from Last 3 Months Medical History Medical History Date Comments Multifactorial gait disorder Hypertension Hyperlipidemia Myelopathy ([facility] V24, [facility] V28) Social History Tobacco Use Types Packs/Day Years [...] Sign Reading Time Taken Comments Blood Pressure 120/72 04/25/2025 1:55 PM EDT Pulse 65 04/25/2025 1:55 PM EDT Temperature - - Respiratory Rate - - Oxygen Saturation 95% 04/25/2025 1:55 PM EDT Inhaled Oxygen Concentration - - Weight 72.6 kg (160 lb) 04/25/2025 1:55 PM EDT Height 162.6 cm (5' 4 ) 04/25/2025 1:55 PM EDT Body Mass Index 27.46 04/25/2025 1:55 PM EDT Plan of Treatment Upcoming Encounters Date Type Department Care Team (Late st Contact Info) Description 08/09/2025 1:10 PM EDT Office Visit [facility] [address] [place] [address] [place] [address] Shahid Ramos NP [address] [place] [address] [address] [place] [phone] Health Maintenance Due Date Last Done Comments DTaP,Tdap,and Td Vaccines (1 - Tdap) 1958 Zoster Vaccines (1 of 2) 1989 RSV Immunization Adult Patients (1 - 1-dose 75+ series) 2014 Pneumococcal Vaccine: 50+ Years (2 of 2 - PPSV23) 04/23/2018 04/23/2017 Cholesterol Screening (Lipid Panel) 11/07/2022 Falls Risk Assessment 11/07/2022 Medicare Annual Wellness Visit 11/07/2022 Social Influencers of Health Screening 11/07/2022 COVID-19 Vaccine ( season) 2024 11/23/2021, 01/29/2021, 01/08/2021 Depression Screening 11/24/2024 Influenza Vaccine (#1) 2025 11/16/2024 Hypertension/CHF/CAD Annual BMP Blood Test 03/07/2026 03/07/2025, 03/01/2025, 02/26/2025, Additional history exists HIB Vaccines Aged Out No longer eligi [...] Date/Time Associated Diagnosis Comments CULTURE URINE Routine 05/25/2025 12:00 AM EDT Urinary tract infection, site not specified Benign prostatic hyperplasia with lower urinary tract symptoms ECG 12-LEAD Routine 04/25/2025 2:02 PM EDT PAF (paroxysmal atrial fibrillation) (CMS/HCC V24, CMS/HCC V28) COMPREHENSIVE METABOLIC PANEL Routine 03/07/2025 5:15 AM EDT Encounter for other general examination from Last 3 Months or Most Recently Relevant to Health Maintenance Results * (ABNORMAL) Culture urine (05/25/2025 12:00 AM EDT) Culture, Urine >100,000 CFU/mL Proteus mirabilis ESBL(A) BAUDILIO 05/29/2025 8:45 AM EDT [facility] Comment: THIS ORGANISM IS POSITIVE FOR EXTENDED SPECTRUM BETA-LACTAMASE (ESBL). EXTENDED SPECTRUM BETA-LACTAMASE PRODUCING ORGANISMS DEMONSTRATE DECREASED ACTIVITY WITH PENICILLINS, CEPHALOSPORINS AND AZTREONAM. The organism value for this result has been updated. These results have been appended to the previously preliminary verified report. Edited result: Previously reported as Proteus species on 05/27/2025 at 1022 EDT. Edited result: Previously reported as Proteus mirabilis on 05/28/2025 at 1152 EDT. Culture, Urine 10,000-49,000 CFU/mL Pseudomonas aeruginosa(A) BAUDILIO 05/29/2025 8:45 AM EDT [facility] Comment: The organism value for this result has been updated. These results have been appended to the previously preliminary verified report. This is an edited result. Previous organism was Gram negative bacilli on 05/27/2025 at 1022 EDT. Urine Urine specimen obtained by clean catch procedure / Unknown 05/25/2025 05/25/2025 5:52 PM EDT Narrative [facility] - 05/29/2025 8:45 AM EDT Additional colony types present in insignificant amounts. Organism Antibiotic Method Susceptibility Proteus mirabilis ESBL Ampicillin/Sulbactam BAUDILIO <=2 ug/ml: Susceptible Proteus mirabilis ESBL Piperacillin/Tazobactam BAUDILIO <=4 ug/ml: Susceptible Proteus mirabilis ESBL Cefazolin (Urine) BAUDILIO 4 ug/ml: Susceptible Proteus mirabilis ESBL Cefoxitin BAUDILIO 8 ug/ml: Susceptible Proteus mirabilis ESBL Ceftazidime BAUDILIO <=0.5 ug/ml: Susceptible Proteus mirabilis ESBL Ceftriaxone BAUDILIO <=0.25 ug/ml: Susceptible Proteus mirabilis ESBL Cefepime BAUDILIO 0.25 ug/ml: Susceptible Proteus mirabilis ESBL Meropenem BAUDILIO 1 ug/ml: Susceptible Proteus mirabilis ESBL Amikacin BAUDILIO 4 ug/ml: Susceptible Proteus mirabilis ESBL Gentamicin BAUDILIO <=1 ug/ml: Susceptible Proteus mirabilis ESBL Ciprofloxacin BAUDILIO <=0.06 ug/ml: Susceptible Proteus mirabilis ESBL Levofloxacin BAUDILIO <=0.12 ug/ml: Susceptible Proteus mirabilis ESBL Nitrofurantoin BAUDILIO 128 ug/ml: Resistant Proteus mirabilis ESBL Trimethoprim/Sulf amethox azole BAUDILIO <=20 ug/ml: Susceptible Pseudomonas aeruginosa Piperacillin/Tazobactam BAUDILIO 8 ug/ml: Susceptible Pseudomonas aeruginosa Ceftazidime BAUDILIO 2 ug/ml: Susceptible Pseudomonas aeruginosa Meropenem BAUDILIO 0.5 ug/ml: Susceptible Pseudomonas aeruginosa Amikacin BAUDILIO 4 ug/ml: Susceptible Pseudomonas aeruginosa Ciprofloxacin BAUDILIO 0.25 ug/ml: Susceptible Pseudomonas aeruginosa Levofloxacin BAUDILIO 0.5 ug/ml: Susceptible Pseudomonas aeruginosa Cefepime DISK DIFFUSION Susceptible Hilton Saavedra PA LAB MI[facility]BIOLOGY - [facility] Final Result Performing Organization Address City/[facility]/ZIP Co de Phone Number [facility] [address] [place] [address], * ECG 12 lead (04/25/2025 2:02 PM EDT) [facility] Signature Ventricular Rate ECG 65 BPM GEMUSE Atrial Rate 65 BPM GEMUSE P-R Interval 140 ms GEMUSE QRS Duration 84 ms GEMUSE Q-T Interval 374 ms GEMUSE QTc 388 ms GEMUSE P Wave [place] 6 degrees GEMUSE R [place] 10 degrees GEMUSE T [place] 29 degrees GEMUSE ECG Interpretation Normal sinus rhythm Normal ECG When compared with ECG of 30-NOV-2024 11:15, No significant change was found Confirmed by LA NENA SYED ([id number]) on 04/26/2025 5:38:43 PM GEMUSE 04/25/2025 2:02 PM EDT 04/26/2025 5:38 PM EDT Shahid Ramos DENTURE CONTOUR WIRE SPECIALIST ECG ORDERABLES Final Resul t GEMUSE * (ABNORMAL) Comprehensive metabolic panel (03/07/2025 5:15 [...] [facility] Comment:Calculation based on the Chronic Kidney Disease Epidemiology Collaboration (CKD-EPI) equation refit without adjustment for race. BUN/Creatinine Ratio 27.5 LAB CHEMISTRY METHOD 03/07/2025 12:39 PM [facility] Calcium 8.6 8.5 - 10.5 mg/dL LAB CHEMISTRY METHOD 03/07/2025 12:39 PM [facility] AST (SGOT) 32 10 - 42 unit/L LAB CHEMISTRY METHOD 03/07/2025 12:39 PM [facility] ALT (SGPT) 48 10 - 60 unit/L LAB CHEMISTRY METHOD 03/07/2025 12:39 PM EDT [facility] Alkaline Phosphatase 116 42 - 121 unit/L LAB CHEMISTRY METHOD 03/07/2025 12:39 PM EDT [facility] Total Protein 5.3(L) 6.0 - 8.0 g/dL LAB CHEMISTRY METHOD 03/07/2025 12:39 PM T [facility] Albumin 2.8(L) 3.2 - 5.0 g/dL LAB CHEMISTRY METHOD 03/07/2025 12:39 PM EDT [facility] Total Bilirubin 1.0 0.0 - 1.4 mg/dL LAB CHEMISTRY METHOD 03/07/2025 12:39 PM EDT [facility] Blood Venous blood specimen / Unknown Venipuncture / Unknown 03/07/2025 5:15 AM EDT 03/07/2025 10:19 AM EDT us Fidencio Burroughs MD LAB BLOOD ORDERABLES Final Res ult [facility] [address] [place] [address], from Last 3 Months or Most Recently Relevant to Health Maintenance Additional Health Concerns Infection Onset Date Last Indicated ESBL 05/25/2025 05/25/2025 Insurance [facility] [employer] [facility] [employer] ADVANTAGE Care Teams Manager Ambulatory Relationship Specialty Start Date End Date Cj Barber DO [address] [place] [phone] PCP - General 04/21/13
--- OUTSIDE RECORDS SUMMARY | 2025-07-21 10:22 | XMS_ITS | Encounter Summary ---
Author Organization [facility] Address [address] [place] [address] Care Team Providers Care Commercial Ocean Clammer Name Role Phone Cj Barber DO Primary Care Provider [phone] Encounter Details Date Type Department Care Team (Late Contact Info) Description 01/25/2025 Lab Requisition [facility] - Main Lab 299 [facility] [place] [address] Fidencio Burroughs MD [address] [place] [phone] Encounter for other general examination Social History [...] 08/09/2025 1:10 PM EDT Office Visit [facility] [address] [place] [address] Shahid Ramos NP [address] [place] [address] documented as of this encounter [...] LAB HEMETOLOGY METHOD 01/25/2025 11:36 AM EST [facility] NRBC Absolute 0.00 <0.10 K/mcL LAB HEMETOLOGY METHOD 01/25/2025 11:36 AM EST [facility] Blood Venous blood specimen / Unknown Venipuncture / Unknown 01/25/2025 7:02 AM EST 01/25/2025 10:36 AM EST us Fidencio Burroughs MD LAB BLOOD ORDERABLES Final Res ult [facility] [address] [place] [address], * (ABNORMAL) Comprehensive metabolic panel (01/25/2025 7:02 [...] [facility] Comment:Calculation based on the Chronic Kidney Disease Epidemiology Collaboration (CKD-EPI) equation refit without adjustment for race. BUN/Creatinine Ratio 20.0 LAB [...] Res ult [facility] [address] [place] [address], documented in this encounter Visit Diagnoses Diagnosis Encounter for other general examination documented in this encounter Additional Health Concerns Infection Onset Date Last Indicated Resolved Time ESBL 05/25/2025 05/25/2025 documented as of this encounter Care Teams Commercial Ocean Clammer Relationship Specialty Start Date End Date Cj Barber DO [address] [place] [phone] PCP - General 04/21/13 documented as of this encounter
--- OUTSIDE RECORDS SUMMARY | 2025-07-21 10:22 | XMS_ITS | Encounter Summary ---
Author Organization [facility] Address [address] [place] [address] Care Team Providers Care V Belt Mold Assembler And Curer Name Role Phone Cj Barber DO Primary Care Provider [phone] Encounter Details Date Type Department Care Team (Late Contact Info) Description 12/17/2024 Lab Requisition [facility] - Main Lab 299 [facility] [place] [phone] Horace Gu MD [address] [facility] [address] [place] [phone] Urinary tract infection, site not specified Social [...] 08/09/2025 1:10 PM EDT Office Visit [facility] - [facility] [address] [place] [address] Shahid Ramos NP [address] [place] [address] Dr [address] [place] [address] documented as of this encounter Procedures Procedure Name Priority Date/Time Associated Diagnosis Comments CULTURE URINE Routine 12/17/2024 12:00 AM EST Urinary tract infection, site not specified documented in this encounter Results * (ABNORMAL) Culture urine (12/17/2024 12:00 AM EST) Culture, Urine >100,000 CFU/mL Proteus mirabilis(A ) BAUDILIO 12/19/2024 7:46 AM EST [facility] Comment: Edited result: Previously reported [...] MICROBIOLOGY - GENERAL TRISTEN GALAVIZ Final Result [facility] [address] [place] [address], [place] [phone] documented in this encounter Visit Diagnoses Diagnosis Urinary tract infection, site not specified documented in this encounter Additional Health Concerns Infection Onset Date Last Indicated Resolved Time ESBL 05/25/2025 05/25/2025 documented as of this encounter Care Teams V Belt Mold Assembler And Curer Relationship Specialty Start Date End Date Cj Barber DO [address] [place] [phone] PCP - General 04/21/13 documented as of this encounter
--- OUTSIDE RECORDS SUMMARY | 2025-07-21 10:22 | XMS_ITS | Encounter Summary ---
Author Organization [facility] Address [address] [place] [address] Care Team Providers Care Lead Burner Name Role Phone Cj Barber DO Primary Care Provider [phone] Encounter Details Date Type Department Care Team (Late Contact Info) Description 01/19/2025 Lab Requisition [facility] - Main Lab 299 [facility] [place] [address] Fidencio Burroughs MD [address] [place] [address] Encounter for other general examination Social History [...] Description 08/09/2025 1:10 PM EDT Office Visit [facility] [address] [place] [address] Sahhid Ramos NP [address] [place] [address] documented as of this encounter [...] K/mcL LAB HEMETOLOGY METHOD 01/19/2025 12:47 PM [facility] RBC 4.50 4.50 - 5.50 M/mcL LAB HEMETOLOGY METHOD 01/19/2025 12:47 PM [facility] Hemoglobin 13.9 13.5 - 17.5 g/dL LAB HEMETOLOGY METHOD 01/19/2025 12:47 PM [facility] Hematocrit 42.6 42.0 - 54.0 % LAB HEMETOLOGY METHOD 01/19/2025 12:47 PM [facility] MCV 94.0 79.0 - 98.0 FL LAB HEMETOLOGY METHOD 01/19/2025 12:47 PM [facility] MCH 30.7 27.0 - 32.0 pcg LAB HEMETOLOGY METHOD 01/19/2025 12:47 PM [facility] MCHC 32.6 32.0 - 37.0 g/dL LAB HEMETOLOGY METHOD 01/19/2025 12:47 PM [facility] RDW 13.0 11.0 - 15.0 % LAB HEMETOLOGY METHOD 01/19/2025 12:47 PM [facility] Platelets 01/19/2025 12:47 PM [facility] Comment:Not measured. Unable to quantitate due to platelet clumping MPV 11.3(H) 7.0 - 11.0 FL LAB HEMETOLOGY METHOD 01/19/2025 12:47 PM [facility] NRBC 0.0 <1.0 % LAB HEMETOLOGY METHOD 01/19/2025 12:47 PM EST [facility] NRBC Absolute 0.00 <0.10 K/mcL LAB HEMETOLOGY METHOD 01/19/2025 12:47 PM EST [facility] Blood Venous blood specimen / Unknown Venipuncture / Unknown 01/19/2025 5:25 AM EST 01/19/2025 10:00 AM EST us Fidencio Burroughs MD LAB BLOOD ORDERABLES Final Res ult [facility] [address] [place] [address], * (ABNORMAL) Comprehensive metabolic panel (01/19/2025 5:25 AM EST) Sodium 137 133 - 145 mmol/L LAB CHEMISTRY METHOD 01/19/2025 11:35 AM [facility] Potassium 4.2 3.5 - 5.5 mmol/L LAB CHEMISTRY METHOD 01/19/2025 11:35 AM [facility] Chloride 103 96 - 110 mmol/L LAB CHEMISTRY METHOD 01/19/2025 11:35 AM [facility] CO2 24 21 - 32 mmol/L LAB CHEMISTRY METHOD 01/19/2025 11:35 AM [facility] Anion Gap 10 3 - 11 LAB CHEMISTRY METHOD 01/19/2025 11:35 AM [facility] Glucose 84 70 - 100 mg/dL LAB CHEMISTRY METHOD 01/19/2025 11:35 AM [facility] BUN 9 5 - 25 mg/dL LAB CHEMISTRY METHOD 01/19/2025 11:35 AM [facility] Creatinine 0.45(L) 0.70 - 1.30 mg/dL LAB CHEMISTRY METHOD 01/19/2025 11:35 AM [facility] eGFR 103 >=60 mL/min/1. 73m2 LAB CHEMISTRY METHOD 01/19/2025 11:35 AM [facility] Comment:Calculation based on the Chronic Kidney Disease Epidemiology Collaboration (CKD-EPI) equation refit without adjustment for race. BUN/Creatinine Ratio 20.0 LAB CHEMISTRY METHOD 01/19/2025 11:35 AM [facility] Calcium 8.9 8.5 - 10.5 mg/dL LAB CHEMISTRY METHOD 01/19/2025 11:35 AM [facility] AST (SGOT) 36 10 - 42 unit/L LAB CHEMISTRY METHOD 01/19/2025 11:35 AM [facility] ALT (SGPT) 44 10 - 60 unit/L LAB CHEMISTRY METHOD 01/19/2025 11:35 AM [facility] Alkaline Phosphatase 114 42 - 121 unit/L LAB CHEMISTRY METHOD 01/19/2025 11:35 AM [facility] Total Protein 6.2 6.0 - 8.0 g/dL LAB CHEMISTRY METHOD 01/19/2025 11:35 AM [facility] Albumin 3.1(L) 3.2 - 5.0 g/dL LAB CHEMISTRY METHOD 01/19/2025 11:35 AM [facility] Total Bilirubin 0.7 0.0 - 1.4 mg/dL LAB CHEMISTRY METHOD 01/19/2025 11:35 AM [facility] Blood Venous blood specimen / Unknown Venipuncture / Unknown 01/19/2025 5:25 AM EST 01/19/2025 10:00 AM EST us Fidencio Burroughs MD LAB BLOOD ORDERABLES Final Res ult [facility] [address] [place] [address], documented in this encounter Visit Diagnoses Diagnosis Encounter for other general examination documented in this encounter Additional Health Concerns Infection Onset Date Last Indicated Resolved Time ESBL 05/25/2025 05/25/2025 documented as of this encounter Care Teams Lead Burner Relationship Specialty Start Date End Date Cj Barber DO [address] [place] [phone] PCP - General 04/21/13 documented as of this encounter
--- OUTSIDE RECORDS SUMMARY | 2025-07-21 10:22 | XMS_ITS | Encounter Summary ---
Author Organization [facility] Address [address] [place] [address] Care Team Providers Care Manager Recruiting Name Role Phone Cj Barber DO Primary Care Provider [phone] Encounter Details Date Type Department Care Team (Late Contact Info) Description 01/17/2025 Lab Requisition [facility] - Main Lab 299 [facility] [place] [address] Fidencio Burroughs MD [address] [place] [address] Encounter for other general examination Social History [...] Description 08/09/2025 1:10 PM EDT Office Visit [facility] [address] [place] [address] Shahid Ramos NP [address] [place] [address] documented as of this encounter [...] (ABNORMAL) Culture urine (01/17/2025 4:00 AM EST) [facility] Culture, Urine 10,000-49,0 00 CFU/mL Proteus mirabilis(A ) BAUDILIO 01/19/2025 11:[address] [facility] Comment: Edited result: [...] MICROBIOLOGY - GENERAL ORD ERABLES Final Result [facility] [address] [place] [address], [place] [phone] * (ABNORMAL) Urinalysis with reflex microscopic and culture (01/17/2025 4:00 AM EST) Specific [place] Urine 1.009 1.003 - 1.030 LAB URINALYSIS - AUTOMATED METHOD 01/17/2025 12:04 PM [facility] pH, Urine 7.5 5.0 - 8.0 pH LAB URINALYSIS - AUTOMATED METHOD 01/17/2025 12:04 PM [facility] Leukocytes, Urine Large(A) Negative LAB URINALYSIS - AUTOMATED METHOD 01/17/2025 12:04 PM [facility] Nitrite, Urine Negative Negative LAB URINALYSIS - AUTOMATED METHOD 01/17/2025 12:04 PM [facility] Protein, Urine 30(A) <=Trace mg/dL LAB URINALYSIS - AUTOMATED METHOD 01/17/2025 12:04 PM [facility] Glucose, Urine Negative Negative mg/dL LAB URINALYSIS - AUTOMATED METHOD 01/17/2025 12:04 PM [facility] Ketones, Urine Negative Negative mg/dL LAB URINALYSIS - AUTOMATED METHOD 01/17/2025 12:04 PM [facility] Urobilinogen, Urine 1.0 0.2 - 1.0 mg/dL LAB URINALYSIS - AUTOMATED METHOD 01/17/2025 12:04 PM [facility] Bilirubin, Urine Negative Negative LAB URINALYSIS - AUTOMATED METHOD 01/17/2025 12:04 PM [facility] Blood, Urine Large(A) Negative LAB URINALYSIS - AUTOMATED METHOD 01/17/2025 12:04 PM [facility] RBC, Urine 501.9(H) 0 - 4 /HPF LAB URINALYSIS - AUTOMATED METHOD 01/17/2025 12:04 PM [facility] WBC, Urine 505.7(H) 0 - 4 /HPF LAB URINALYSIS - AUTOMATED METHOD 01/17/2025 12:04 PM [facility] Squamous Epithelial, Urine 4 0 - 60 /LPF LAB URINALYSIS - AUTOMATED METHOD 01/17/2025 12:04 PM [facility] Bacteria, Urine Negative Negative /HPF LAB URINALYSIS - AUTOMATED METHOD 01/17/2025 12:04 PM [facility] Hyaline Casts, Urine 4.8(H) 0 - 3 /LPF LAB URINALYSIS - AUTOMATED METHOD 01/17/2025 12:04 PM [facility] Urine Indwelling urinary catheter / Unknown Non-blood Collection / Unknown 01/17/2025 4:00 AM EST 01/17/2025 10:12 AM EST Fidencio Burroughs MD LAB URINE ORDERABLES Final Res ult [facility] [address] [place] [address], * Mckeon urine culture tube (01/17/2025 4:00 AM EST) Extra Tube Hold for add-ons. 01/17/2025 12:01 PM [facility] Comment:Auto resulted. Urine Indwelling urinary catheter / Unknown Non-blood Collection / Unknown 01/17/2025 4:00 AM EST 01/17/2025 10:12 AM EST Fidencio Burroughs MD LAB URINE ORDERABLES Final Res ult [facility] [address] [place] [address], documented in this encounter Visit Diagnoses Diagnosis Encounter for other general examination documented in this encounter Additional Health Concerns Infection Onset Date Last Indicated Resolved Time ESBL 05/25/2025 05/25/2025 documented as of this encounter Care Teams Manager Recruiting Relationship Specialty Start Date End Date Cj Barber DO [address] [place] [phone] PCP - General 04/21/13 documented as of this encounter
--- OUTSIDE RECORDS SUMMARY | 2025-07-21 10:22 | XMS_ITS | Encounter Summary ---
Author Organization [facility] Address [address] [place] [address] Care Team Providers Care Environmental Department Manager Name Role Phone Cj Barber DO Primary Care Provider [phone] Encounter Details Date Type Department Care Team (Late st Contact Info) Description 05/25/2025 Lab Requisition [facility] - Main Lab 299 [facility] [place] [address] Hilton Saavedra, ALY [address] [place] [address] Urinary tract infection, site not specified; Benign prostatic hyperplasia with lower urinary tract symptoms Social History Tobacco Use Types Packs/Day Years [...] 1:10 PM EDT Office Visit [facility] - [facility] Center [address] [place] [address] Shahid Ramos NP [address] [place] [address] [address] [place] [phone] documented as of this encounter Procedures Procedure Name Priority Date/Time Associated Diagnosis Comments CULTURE URINE Routine 05/25/2025 12:00 AM EDT Urinary tract infection, site not specified Benign prostatic hyperplasia with lower urinary tract symptoms documented in this encounter Results * (ABNORMAL) Culture urine (05/25/2025 12:00 AM EDT) Culture, Urine >100,000 CFU/mL Proteus mirabilis ESBL(A) BAUDILIO 05/29/2025 8:45 AM EDT [facility] Comment: THIS ORGANISM IS POSITIVE FOR [...] Pseudomonas aeruginosa(A) BAUDILIO 05/29/2025 8:45 AM EDT [facility] Comment: The organism value for this result has been updated. These results have been appended to the previously preliminary verified report. This is an edited result. Previous organism was Gram negative bacilli on 05/27/2025 at 1022 EDT. Urine Urine specimen obtained by clean catch procedure / Unknown 05/25/2025 05/25/2025 5:52 PM EDT Narrative [facility] - 05/29/2025 8:45 AM EDT Additional [...] BAUDILIO 2 ug/ml: Susceptible Pseudomonas aeruginosa Meropenem BAUIDLIO 0.5 ug/ml: Susceptible Pseudomonas aeruginosa Amikacin BAUDILIO 4 ug/ml: Susceptible Pseudomonas aeruginosa Ciprofloxacin BAUDILIO 0.25 ug/ml: Susceptible Pseudomonas aeruginosa Levofloxacin BAUDILIO 0.5 ug/ml: Susceptible Pseudomonas aeruginosa Cefepime DISK DIFFUSION Susceptible [facility] LAB MICROBIOLOGY - GENERAL SHMUELE GUILLAUME Final Result [facility] [address] [place] [address], documented in this encounter Visit Diagnoses Diagnosis Urinary tract infection, site not specified Benign prostatic hyperplasia with lower urinary tract symptoms documented in this encounter Additional Health Concerns Infection Onset Date Last Indicated Resolved Time ESBL 05/25/2025 05/25/2025 documented as of this encounter Care Teams Environmental Department Manager Relationship Specialty Start Date End Date Cj Barber DO [address] [place] [phone] PCP - General 04/21/13 documented as of this encounter
--- OUTSIDE RECORDS SUMMARY | 2025-07-21 10:22 | XMS_ITS | Encounter Summary ---
Author Organization [facility] Address [address] [place] [address] Care Team Providers Care Pecan Grower Name Role Phone Cj Barber DO Primary Care Provider [phone] Encounter Details Date Type Department Care Team (Late Contact Info) Description 04/08/2025 Lab Requisition [facility] - Main Lab 299 [facility] [place] [phone] Luis Miguel Caceres MD [address] [facility] [address] [place] [phone] Gross hematuria Social History Tobacco Use Types Packs/Day Years [...] Description 08/09/2025 1:10 PM EDT Office Visit [facility] - [facility] [address] [place] [address] Shahid Ramos NP [address] [place] [address] Dr Gross [address] [place] [address] documented as of this encounter Procedures Procedure Name Priority Date/Time Associated Diagnosis Comments CULTURE URINE Routine 04/08/2025 12:00 AM EDT Gross hematuria documented in this encounter Results * Culture urine (04/08/2025 12:00 AM EDT) Culture, Urine >100,000 CFU/mL Mixed bacterial morphotypes present suggestive of possible contamination during collection. Suggest appropriate recollection if clinically indicated. 04/10/2025 10:30 AM EDT [facility] Urine Indwelling urinary catheter / Unknown 04/08/2025 04/08/2025 12:46 PM EDT us Luis Miguel Caceres MD LAB MICROBIOLOGY - GENERAL O RDERABLES Final Result [facility] [address] [place] [address], documented in this encounter Visit Diagnoses Diagnosis Gross hematuria documented in this encounter Additional Health Concerns Infection Onset Date Last Indicated Resolved Time ESBL 05/25/2025 05/25/2025 documented as of this encounter Care Teams Pecan Grower Relationship Specialty Start Date End Date Cj Barber DO [address] [place] [phone] PCP - General 04/21/13 documented as of this encounter
--- OUTSIDE RECORDS SUMMARY | 2025-07-21 10:22 | XMS_ITS | Encounter Summary ---
Author Organization [facility] Address [address] [place] [address] Care Team Providers Care Cement Cutter Name Role Phone Cj Barber DO Primary Care Provider [phone] Encounter Details Date Type Department Care Team (Late Contact Info) Description 03/07/2025 Lab Requisition [facility] - Main Lab 299 [facility] [place] [address] Fidencio Burroughs MD [address] [place] [address] Encounter for other general examination Social History [...] Description 08/09/2025 1:10 PM EDT Office Visit [facility] [address] [place] [address] Shahid Ramos NP [address] [place] [address] documented as of this encounter [...] LAB HEMETOLOGY METHOD 03/07/2025 1:40 PM EDT [facility] RBC 3.70(L) 4.50 - 5.50 M/mcL LAB HEMETOLOGY METHOD 03/07/2025 1:40 PM EDT [facility] Hemoglobin 11.5(L) 13.5 - 17.5 g/dL LAB HEMETOLOGY [facility] Hematocrit 34.9(L) 42.0 - 54.0 % LAB HEMETOLOGY METHOD 03/07/2025 1:40 PM EDT [facility] MCV 93.8 79.0 - 98.0 FL LAB HEMETOLOGY METHOD 03/07[facility]2025 [facility] MCH 30.9 27.0 - 32.0 pcg LAB HEMETOLOGY METHOD 03/07[facility]25 [facility] MCHC 33.0 32.0 - 37.0 g/dL LAB HEMETOLOGY METHOD 03/07/2025 1:40 PM EDT [facility] RDW 14.7 11.0 - 15.0 % LAB HEMETOLOGY METHOD [facility] Platelets 03/07/2025 1:40 PM EDT [facility] Comment:Not measured. Unable to quantitate due to platelet clumping MPV 9.2 7.0 - 11.0 FL LAB HEMETOLOGY METHOD 03/07/2025 1:40 PM EDT [facility] NRBC 0.0 <1.0 % LAB HEMETOLOGY METHOD 03/07/2025 1:40 PM EDT [facility] NRBC Absolute 0.00 <0.10 K/mcL LAB HEMETOLOGY METHOD 03/07/2025 1:40 PM T [facility] Blood Venous blood specimen / Unknown Venipuncture / Unknown 03/07/2025 5:15 AM EDT 03/07/2025 10:19 AM EDT us Fidencio Burroughs MD LAB BLOOD ORDERABLES Final Res ult [facility] [address] [place] [address], [place] [phone] * (ABNORMAL) Comprehensive metabolic panel (03/07/2025 5:15 AM EDT) Sodium 137 133 - 145 mmol/L LAB CHEMISTRY METHOD 03/07/2025 12:39 PM [facility] Potassium 3.8 3.5 - 5.5 mmol/L LAB CHEMISTRY METHOD 03/07/2025 12:39 PM [facility] Chloride 101 96 - 110 mmol/L LAB CHEMISTRY METHOD 03/07/2025 12:39 PM [facility] CO2 32 21 - 32 mmol/L LAB CHEMISTRY METHOD 03/07/2025 12:39 PM [facility] Anion Gap 4 3 - 11 LAB CHEMISTRY METHOD 03/07/2025 12:39 PM [facility] Glucose 77 70 - 100 mg/dL LAB CHEMISTRY METHOD 03/07/2025 12:39 PM [facility] BUN 14 5 - 25 mg/dL LAB CHEMISTRY METHOD 03/07/2025 12:39 PM [facility] Creatinine 0.51(L) 0.70 - 1.30 mg/dL LAB CHEMISTRY METHOD 03/07/2025 12:39 PM [facility] eGFR 99 >=60 mL/min/1. 73m2 LAB CHEMISTRY METHOD 03/07/2025 12:39 PM [facility] Comment:Calculation based on the Chronic Kidney Disease Epidemiology Collaboration (CKD-EPI) equation refit without adjustment for race. BUN/Creatinine Ratio 27.5 LAB CHEMISTRY METHOD 03/07/2025 12:39 PM [facility] Calcium 8.6 8.5 - 10.5 mg/dL LAB CHEMISTRY METHOD 03/07/2025 12:39 PM [facility] AST (SGOT) 32 10 - 42 unit/L LAB CHEMISTRY METHOD 03/07/2025 12:39 PM [facility] ALT (SGPT) 48 10 - 60 unit/L LAB CHEMISTRY METHOD 03/07/2025 12:39 PM [facility] Alkaline Phosphatase 116 42 - 121 unit/L LAB CHEMISTRY METHOD 03/07/2025 12:39 PM [facility] Total Protein 5.3(L) 6.0 - 8.0 g/dL LAB CHEMISTRY METHOD 03/07/2025 12:39 PM [facility] Albumin 2.8(L) 3.2 - 5.0 g/dL LAB CHEMISTRY METHOD 03/07/2025 12:39 PM [facility] Total Bilirubin 1.0 0.0 - 1.4 mg/dL LAB CHEMISTRY METHOD 03/07/2025 12:39 PM [facility] Blood Venous blood specimen / Unknown Venipuncture / Unknown 03/07/2025 5:15 AM EDT 03/07/2025 10:19 AM EDT us Fidencio Burroughs MD LAB BLOOD ORDERABLES Final Res ult [facility] [address] [place] [address], documented in this encounter Visit Diagnoses Diagnosis Encounter for other general examination documented in this encounter Additional Health Concerns Infection Onset Date Last Indicated Resolved Time ESBL 05/25/2025 05/25/2025 documented as of this encounter Care Teams Cement Cutter Relationship Specialty Start Date End Date Cj Barber DO [address] [place] [phone] PCP - General 04/21/13 documented as of this encounter
--- OUTSIDE RECORDS SUMMARY | 2025-07-21 10:22 | XMS_ITS | Encounter Summary ---
Author Organization [facility] Address [address] [place] [address] Care Team Providers Care Straightening Press Operator Name Role Phone Cj Barber DO Primary Care Provider [phone] Encounter Details Date Type Department Care Team (Late Contact Info) Description 02/25/2025 Lab Requisition [facility] - Main Lab [address] [facility] [place] [address] Fidencio Burroughs MD [address] [place] [phone] Hematuria, unspecified Social History Tobacco Use Types [...] Description 08/09/2025 1:10 PM EDT Office Visit [facility] [address] [place] [address] Shahid Ramos NP [address] [place] [address] documented as of this encounter [...] albicans/du bliniensis( A) 02/27/2025 12:30 PM EDT [facility] Comment: Edited result: Previously reported as Yeast on 02/26/2025 at 1030 EDT. Urine Indwelling urinary catheter / Unknown 02/24/2025 6:00 PM EDT 02/25/2025 12:09 PM EDT us Fidencio Burroughs MD LAB MICROBIOLOGY - GENERAL ORD ERABLES Final Result [facility] [address] [place] [address], [place] [phone] * (ABNORMAL) Urinalysis with reflex microscopic and culture (02/24/2025 6:00 PM EDT) Pathologist [facility] Specific [place] Urine 1.023 1.003 - 1.030 LAB URINALYSIS - AUTOMATED METHOD 02/25/2025 12:09 PM EDT [facility] pH, Urine 6.0 5.0 - 8.0 pH LAB URINALYSIS - AUTOMATED METHOD 02/25/2025 12:09 PM EDT [facility] Leukocytes, Urine Large(A) Negative LAB URINALYSIS - AUTOMATED METHOD [facility]25 [facility] Nitrite, Urine Negative Negative LAB URINALYSIS - AUTOMATED METHOD 02/25/2025 12:09 PM [facility] Protein, Urine 30(A) <=Trace [...] - AUTOMATED METHOD 02/25/2025 12:09 PM EDT [facility] Urine Indwelling urinary catheter / Unknown 02/24/2025 6:00 PM EDT 02/25/2025 11:30 AM EDT us Fidencio Burroughs MD LAB URINE ORDERABLES Final Res ult Performing Organization Address City/[facility]/ZIP Co de Phone Number [facility] [address] [place] [address], [place] [phone] * Mckeon urine culture tube (02/24/2025 6:00 PM EDT) Extra Tube Hold for add-ons. 02/25/2025 1:01 PM EDT [facility] Comment:Auto resulted. Urine Indwelling urinary catheter / Unknown 02/24/2025 6:00 PM EDT 02/25/2025 11:30 AM EDT us Fidencio Burroughs MD LAB URINE ORDERABLES Final Res ult Performing Organization Address [facility] Co de Phone Number [facility] [address] [place] [address], [place] [phone] documented in this encounter Visit Diagnoses Diagnosis Hematuria, unspecified documented in this encounter Additional Health Concerns Infection Onset Date Last Indicated Resolved Time ESBL 05/25/2025 05/25/2025 documented as of this encounter Care Teams Straightening Press Operator Relationship Specialty Start Date End Date Cj Barber DO [address] [place] [phone] PCP - General 04/21/13 documented as of this encounter
== END 2025-07-21 09:38 | disposition home or self-care (01) ==
LOC: HO.ACS 09:21
PROVIDERS: PCP Internal Medicine; Visit Provider Internal Medicine Medical Oncology
DX: Z79.01 Long term (current) use of anticoagulants (principal)

== ENCOUNTER → 2025-07-21 09:21 | Outpatient (BNVA) | payer MEDICARE, SELFPAY | PROVIDERS: PCP Internal Medicine; Visit Provider Internal Medicine Medical Oncology | DX: I48.0 Paroxysmal atrial fibrillation (principal); Z79.01 Long term (current) use of anticoagulants; Z51.81 Encounter for therapeutic drug level monitoring | CPT/HCPCS: 99211 ==

== ENCOUNTER 2025-07-21 13:47 | Emergency (ER) | payer MEDICARE, SELFPAY ==
--- NOTE | ~2025-07-21 | CT_ITS ---
EXAMINATION: CT HEAD WITHOUT CONTRAST CLINICAL INFORMATION: Fall, head strike. COMPARISON: None available. TECHNIQUE: Contiguous axial imaging was performed from the skull base to vertex without intravenous administration of contrast. This CT examination was performed using dose optimization techniques as appropriate, variously including the following: *Automated exposure control *Adjustment of mA and/or kV according to patient size (this includes techniques or standardized protocols for targeted exams where dose is matched to indication/reason for exam; i.e. extremities or head) *Use of iterative reconstruction technique FINDINGS: There is no evidence of intracranial hemorrhage or extra-axial fluid collection. There is no mass effect, or edema. No CT evidence of acute territorial infarct. Ventricles, sulci, and cisterns are normal in size and configuration for patient age. No hydrocephalus. No midline shift. Negative hyperdense MCA sign. Negative insular ribbon sign. Patchy periventricular and deep white matter hypoattenuation is consistent with minimal small vessel ischemic changes. Normal pituitary. Mild atheromatous calcification of the bilateral carotid siphons and V4 segments vertebral arteries bilaterally. Globes and orbital contents image normally. There are bilateral lens replacements. No extracranial soft tissue abnormalities. The paranasal sinuses, mastoid air cells, and tympanic cavities are normally aerated. No suspicious bony abnormalities. There are no acute fractures evident. CT/CT head/brain wo IV con IMPRESSION: No acute intracranial pathology. No fracture evident. Electronically signed by: Sandro Gustafson MD 07/21/2025 04:31 PM EDT
--- NOTE | ~2025-07-21 | CT_ITS ---
EXAMINATION: CT CERVICAL SPINE WITHOUT CONTRAST CLINICAL INFORMATION: Fall, head strike, neck pain. COMPARISON: None available. TECHNIQUE: Spiral CT imaging of the cervical spine performed in axial plane without contrast. Multiplanar reformatted images were constructed from the axial data set. This CT examination was performed using dose optimization techniques as appropriate, variously including the following: *Automated exposure control *Adjustment of mA and/or kV according to patient size (this includes techniques or standardized protocols for targeted exams where dose is matched to indication/reason for exam; i.e. extremities or head) *Use of iterative reconstruction technique FINDINGS: CORONAL ALIGNMENT: -There is a mild right convex scoliosis, apex at C5. SAGITTAL ALIGNMENT: -There is a reversal of the normal lordosis, apex at C5. C1-C2 AND CRANIOCERVICAL JUNCTION: -Intact and aligned. 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 There is dorsal calcified pannus formation with mild narrowing of the craniocervical junction. VERTEBRAL BODIES AND FACETS: -There has been prior anterior fusion and discectomy C3-C5. Ventral plate and screws in place, without evidence of loosening or hardware complication. Disc prostheses in place. -There is no evidence of traumatic subluxation. There is a 4 mm anterolisthesis of C4 on C5, probably degenerative. -There are advanced degenerative facet changes left greater than right spanning C3-C5. No facet fracture or posterior element fracture. -There is a suspicious bone lesion. DISCS: -Moderate to severe disc space narrowing noted C5-T1. Mild narrowing noted at C2-3. Disc prostheses at C3-C5. CENTRAL CANAL: -No evidence of high-grade central canal narrowing or large disc herniation allowing for modality limitations. PREVERTEBRAL AND PARAVERTEBRAL SOFT TISSUES: -There is no prevertebral or paravertebral soft tissue swelling or edema. There is no abnormal soft tissue fluid collection. -Mild to moderate carotid bulb calcifications bilaterally. The thyroid is normal in appearance. LUNG APICES: -Paraseptal emphysematous changes . CT/CT cervical spine wo IV con IMPRESSION: 1. No CT evidence of acute cervical spine fracture or injury. 2. Intact fusion C3-C5. 3. Moderate degenerative spondylosis. Mild right convex scoliosis Electronically signed by: Sandro Gustafson MD 07/21/2025 04:37 PM EDT
[2025-07-21 13:50] VITALS: BP 144/81; PULSE 67; RESP 18; TEMP 36.3; O2SAT 99; BMI 26.4
--- NOTE | 2025-07-21 13:58 | ED.HEATRA ---
HPI - Head Injury General Chief complaint: Head Injury Stated complaint: Head injury, sent from urgent care Time Seen by Provider: 07/21/25 14:30 History of Present Illness ED Provider: Schuyler Patricio MD HPI Narrative: This is a pleasant 85-year-old male who comes for low mechanism fall evaluation he fell proximally 3 days ago low mechanism he was sitting on a chair fell asleep and fell to the left side striking in the left anterior forehead. He got himself up denied any other injuries but comes in for evaluation as he has developed a very mild left frontal headache. Denies vision, speech changes or numbness tingling weakness. INR 2.0 this morning the patient takes warfarin Related Data Home Medications ?Medication ?Instructions ?Recorded ?Confirmed timolol maleate 0.5 % eye drops 1 drp ophthalmic (eye) DAILY 10/08/21 07/21/25 aspirin 81 mg tablet,delayed 81 mg PO DAILY 01/31/25 07/21/25 release nitroglycerin 0.4 mg sublingual 0.4 mg sublingual Q5M PRN Angina 01/31/25 07/21/25 tablet clotrimazole 1 % topical cream 1 appl topical BID 03/14/25 07/21/25 isosorbide mononitrate 30 mg 30 mg PO DAILY 03/29/25 07/21/25 tablet,extended release 24 hr furosemide 20 mg tablet (Lasix) 20 mg PO DAILY 05/18/25 07/21/25 lisinopril 5 mg tablet 5 mg PO DAILY 05/18/25 07/21/25 Previous Rx's ?Medication ?Instructions ?Recorded atorvastatin 80 mg tablet 80 mg PO BEDTIME #90 tabs 02/14/25 warfarin 1 mg tablet 5 mg PO DAILY 90 days #450 tabs 04/06/25 metoprolol succinate 25 mg 25 mg PO DAILY #90 tabs 05/25/25 tablet,extended release 24 hr Allergies Allergy/AdvReac Type Severity Reaction Status Date / Time No Known Allergies (No Known Allergy Verified 07/21/25 13:54 Allergies*) [facility] Past Medical History Medical History (Updated 07/22/25 @ 00:01 by Background Daemon) Anemia Hyperlipidemia Gross hematuria Urinary retention Enlarged prostate Pre-op evaluation Lower extremity weakness Physical deconditioning Muscular deconditioning Bilateral arm weakness DVT (deep venous thrombosis) On Coumadin for atrial fibrillation Chronic indwelling Nolan catheter Weakness Hospital discharge follow-up Dyspnea on exertion Vitamin D deficiency Vasovagal syncope Elevated PSA GERD (gastroesophageal reflux disease) Mild hypercholesterolemia Hypertension Coronary artery disease Walker as ambulation aid BPH (benign prostatic hyperplasia) Indwelling Nolan catheter calcification UTI (urinary tract infection) NSTEMI (non-ST elevated myocardial infarction) 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 Mother No problems noted. Social History Social History Household Members: Spouse and Children Housing: House Do you presently have visiting nurse or other home services: Yes Unable to assess alcohol history related to: Unknown Alcohol intake: current Alcohol intake frequency: does not drink Patient Tobacco Use Status: Former Tobacco user Advance Directives: Yes Advance Directives on File: Yes Advance Directives Date on File: 02/10/25 service: No Current occupational status: retired Current occupational exposures/hazards: No Cognitive needs: Yes (walker) Hearing needs: Yes (b/l hearing aids) Vision needs: Yes (rx glasses) Physical Exam Exam: Exam: GENERAL: Well appearing. No apparent distress. Alert. HEAD/NECK: Normal to inspection. Neck supple. No cervical lymphadenopathy. EYES: Normal to inspection. Sclera non-icteric. ENMT: External nose normal. RESPIRATORY: Respiratory effort normal. Lungs clear to auscultation bilaterally. CARDIOVASCULAR: Regular rate. Normal rhythm. No murmur. No rubs. GI: Soft, non-tender, non-distended. No rebound or guarding. No masses palpable. No hepatosplenomegaly. SKIN: No jaundice. NEUROLOGICAL: Alert. PSYCHIATRIC: Alert. Appearance appropriate for situation. Attitude cooperative. OTHER: Comprehensive Neuro exam: Face symmetric, tongue midline, strong symmetric eye closure, pupils symmetric and reactive to light, intact sensation to the face throughout, intact strong face deviation and shoulder shrug. Sensation intact to light touch throughout 5 out of 5 strength in bilateral upper extremities, 5 and 5 strength in lower extremities Vital Signs: Vital Signs: Last Vital Signs Temp 98.0 F 07/21/25 17:14 Pulse 64 07/21/25 17:14 Resp 19 07/21/25 17:14 BP 157/79 H 07/21/25 17:14 Pulse Ox 98 07/21/25 17:14 O2 Del Method Room Air 07/21/25 17:14 BMI result Body Mass Index 26.4 Course Course Course Narrative: This is an RME: Additional HPI, ROS, PE not included below will be deferred to primary provider. RME assessment and note performed by: Mari Esparza PA-C This is a 85-year-old male, with a past medical history of DVT, AFib on Coumadin, who presents emergency department after a head injury. Patient states that he was asleep in his kitchen and accidentally fell and struck the left side of his head. Denies LOC. reports that he was feeling okay however states that yesterday and today he was starting to have a slight pressure on the left side of his head. He is neurologically intact. No bony tenderness on examination. Plan: CT head, neck, EKG, chest x-ray Medical Decision Making Medical Decision Making [facility] Narrative: Medical Decision Makin-year-old male on warfarin with head strike 3 days ago mild headache. Reassuring neurologic exam here. Awake alert oriented no focal deficits no significant headache and he looks quite well. INR 2.0 labs reassuring. Preliminary Favored Differential Diagnosis: Head strike, concussion, contusion, intracranial hemorrhage among additional considered etiologies Testing Interpreted Independently: ?See below for details Radiology or Lab testing Results Reviewed: ?See below for details Consults: ?See below for details Independent Historians/External Chart Reviews: ?See below for details Social Determinants of Health Impacting MDM/Planning: ?See below for details Differential Diagnosis Differential Diagnoses: The differential diagnosis associated with the presentation includes Preliminary Favored Differential Diagnosis: Head strike, concussion, contusion, intracranial hemorrhage among additional considered etiologies Lab Data [facility] Lab Attestation statement: I reviewed the patient's lab results. INR within therapeutic range 07/21/25 14:27 07/21/25 14:27 Labs: Lab Results 07/21/25 Range/Units 14:27 WBC 6.7 (4.8-10.8) X10*3/uL RBC 4.72 (4.60-5.80) X10*6/uL Hgb 13.1 L (14.0-18.0) g/dl Hct 40.2 L (42.0-52.0) % MCV 85.2 (80.0-98.0) fL MCH 27.8 (27.0-33.0) pg MCHC 32.6 (31.0-36.0) g/dl RDW 14.1 (11.0-16.0) % Plt Count 166 (160-400) X10*3/uL MPV 10.4 (9.4-12.4) fL Immature Gran % (Auto) 0.4 (0.0-0.4) % Neut % (Auto) 63.9 (45-73) % Lymph % (Auto) 21.7 (20-40) % Nicollet % (Auto) 11.2 H (2-11) % Eos % (Auto) 1.9 (0-4) % Baso % (Auto) 0.9 (0-2) % Lymph # (Auto) 1.5 (1.2-4.9) X10*3/uL Nicollet # (Auto) 0.8 (0.1-1.2) X10*3/uL Eos # (Auto) 0.1 (0.0-0.4) X10*3/uL Baso # (Auto) 0.1 (0.0-0.2) X10*3/uL Abs Immat Gran (auto) 0.03 (0.00-0.03) X10*3/uL Absolute Neuts (auto) 4.3 (2.0-8.3) x10*3/uL Absolute Nucleated RBC 0.000 (0.0-0.012) X10*3/uL Nucleated RBC % (auto) 0.0 (0.0-0.2) /100WBC PT 23.0 H (10.9-12.4) SEC INR 2.0 H (0.9-1.1) Sodium 137 (135-145) mmol/L Potassium 4.3 (3.3-5.1) mmol/L Chloride 104 (96-108) mmol/L Carbon Dioxide 29 (22-29) mmol/L Anion Gap 8 L (12-20) BUN 14 (9-16) mg/dL Creatinine 0.62 (0.5-1.4) mg/dL Estim Creat Clear Calc 71.6 Estimated GFR > 60 Random Glucose 92 (60-115) mg/dL Calcium 9.3 (8.4-10.2) mg/dL Magnesium 2.1 (1.6-2.6) mg/dL Total Bilirubin 0.5 (0.0-1.0) mg/dL Direct Bilirubin 0.2 (0.0-0.5) mg/dL AST 29 (5-37) U/L ALT 22 (0-40) U/L Alkaline Phosphatase 118 H (39-117) U/L Troponin I High Sens < 2.7 (<3.5-35.0) ng/L Total Protein 6.5 (6.5-8.0) g/dL Albumin 3.9 (3.5-5.0) g/dL Independent Interpretation I performed an independent interpretation of an: EKG (No acute ischemic changes) External Record Review External record reviewed: Inpatient record I reviewed at [facility] record see attached below in brief summary the patient's neurologist was consulted and recommended EEG and initiating Vimpat nightly and b.i.d. lamotrigine the patient is history is secondary to TBI and the patient has diagnosed early Alzheimer's. Discharge Plan Discharge Clinical Impression: Head injury Patient Disposition: Home, Self-Care Instructions: Head Injury (ED) Additional Instructions: DISCHARGE DIAGNOSES: Head strike no apparent intracranial injuries HISTORY OF PRESENTATION: ?Fall with head strike several days ago EMERGENCY DEPARTMENT COURSE,TESTS, TREATMENTS: While in the ED today you had lab work, reassuring blood work INR was 2.0. CT head: No acute traumatic injuries DISCHARGE MEDICATIONS: ?[We have made no changes to your regular medication regimen] FOLLOW-UP: ?Call your primary or general physician soon as possible to discuss your symptoms, your ED visit and to discuss follow up plans Primary doctor follow up INSTRUCTIONS ?& RETURN PRECAUTIONS: If any symptoms change first call your primary physician, if it is after-hours your primary doctors office should have a provider concrete pavement installer you can speak with. If the symptoms are severe or very concerning to you then call 911 or return to the ED. Schuyler Patricio MD Emergency Physician [facility] Prescriptions: No Action atorvastatin 80 mg tablet 80 mg PO BEDTIME Qty: 90 1RF warfarin 1 mg tablet 5 mg PO DAILY 90 Days Qty: 450 1RF Protocol: Dose Management Condition: Friday (Week One) Dose/Route: 9 mg Instruction: 9 x 1 mg tablets Condition: Friday Dose/Route: 6 mg Instruction: 6 x 1 mg tablets Condition: Friday Dose/Route: 6 mg Instruction: 6 x 1 mg tablets Condition: Friday Dose/Route: 6 mg Instruction: 6 x 1 mg tablets Condition: Dose/Route: 6 mg Instruction: 6 x 1 mg tablets Condition: Friday Dose/Route: 6 mg Instruction: 6 x 1 mg tablets Condition: Friday Dose/Route: 6 mg Instruction: 6 x 1 mg tablets Condition: Friday (Week Two) Dose/Route: 9 mg Instruction: 9 x 1 mg tablets Condition: Friday Dose/Route: 6 mg Instruction: 6 x 1 mg tablets Condition: Friday Dose/Route: 6 mg Instruction: 6 x 1 mg tablets Condition: Friday Dose/Route: 6 mg Instruction: 6 x 1 mg tablets Condition: Dose/Route: 6 mg Instruction: 6 x 1 mg tablets Condition: Friday Dose/Route: 6 mg Instruction: 6 x 1 mg tablets Condition: Friday Dose/Route: 6 mg Instruction: 6 x 1 mg tablets Protocol Text: Adjustment Start Date: 07/21/25 INR Value: 2.0 INR Date: 07/21/25 Recheck Date: 08/04/25 metoprolol succinate 25 mg tablet extended release 24 hr 25 mg PO DAILY Qty: 90 1RF timolol maleate 0.5 % drops 1 drp ophthalmic (eye) DAILY aspirin 81 mg tablet,delayed release (DR/EC) 81 mg PO DAILY nitroglycerin 0.4 mg tablet, sublingual 0.4 mg sublingual Q5M PRN (Reason: Angina) Patient Comments: pt states does not use anymore Rx Instructions: do not exceed 3 doses per episode clotrimazole 1 % cream 1 appl topical BID isosorbide mononitrate 30 mg tablet extended release 24 hr 30 mg PO DAILY lisinopril 5 mg tablet 5 mg PO DAILY furosemide [Lasix] 20 mg tablet 20 mg PO DAILY Interventions: ED Discharge Assessment Last Done: 07/21/25 17:14 Discharge Date/Time: 07/21/25 17:14 Print Language: Kittitian
--- NOTE | 2025-07-21 14:01 | ECG_ITS ---
Test Reason : DIZZINESS Blood Pressure : */* mmHG Vent. Rate : 63 BPM Atrial Rate : 63 BPM P-R Int : 148 ms QRS Dur : 88 ms QT Int : 392 ms P-R-T Axes : 9 9 25 degrees QTcB Int : 401 ms Normal sinus rhythm Normal ECG When compared with ECG of 10-Feb-2025 13:17, No significant change was found Referred By: Mari Esparza Electronically Signed By: YULI MOMIN
[2025-07-21 14:32] LABS: MANUAL DIFF FLAG NO
[2025-07-21 14:39] LABS: INTERNATIONAL NORM RATIO 2.0 (0.9-1.1); Prothrombin Time 23.0 SEC (10.9-12.4)
[2025-07-21 14:40] LABS: Hematocrit 40.2 % (42.0-52.0); Hemoglobin 13.1 g/dl (14.0-18.0); Imm Gran Abs Auto 0.03 X10*3/uL (0.00-0.03); Imm Gran Pct Auto 0.4 % (0.0-0.4); Lymphocytes Absolute Auto 1.5 X10*3/uL (1.2-4.9); Mean Corpuscular HGB Conc 32.6 g/dl (31.0-36.0); Mean Corpuscular Hemoglobin 27.8 pg (27.0-33.0); Mean Corpuscular Volume 85.2 fL (80.0-98.0); NRBC Abs Auto 0.000 X10*3/uL (0.0-0.012); NRBC Pct Auto 0.0 /100WBC (0.0-0.2); Platelet Count 166 X10*3/uL (160-400); Red Blood Count 4.72 X10*6/uL (4.60-5.80); White Blood Count 6.7 X10*3/uL (4.8-10.8)
[2025-07-21 14:42] VITALS: BP 157/79; PULSE 64; RESP 19; TEMP 36.7; O2SAT 98
[2025-07-21 14:57] LABS: Alanine Aminotransferase 22 U/L (0-40); Albumin Level 3.9 g/dL (3.5-5.0); Alkaline Phosphatase 118 U/L (39-117); Anion Gap 8 (12-20); Aspartate Amino Transferase 29 U/L (5-37); Blood Urea Nitrogen 14 mg/dL (9-16); Calcium 9.3 mg/dL (8.4-10.2); Carbon Dioxide 29 mmol/L (22-29); Chloride 104 mmol/L (96-108); Creatinine Clr Calc Pharmacy 71.6; Estimated Glomerular Filt Rate > 60; Magnesium 2.1 mg/dL (1.6-2.6); Potassium 4.3 mmol/L (3.3-5.1); Sodium 137 mmol/L (135-145); Total Protein 6.5 g/dL (6.5-8.0)
[2025-07-21 15:07] LABS: Troponin-I High Sensitivity < 2.7 ng/L (<3.5-35.0)
[2025-07-21 17:14] VITALS: BP 157/79; PULSE 64; RESP 19; TEMP 36.7; O2SAT 98
== END 2025-07-21 17:14 | disposition home or self-care (01) ==
PROVIDERS: Physician Assistant Medical; Emergency Provider Emergency Medicine; PCP Internal Medicine
DX: S09.90XA Unspecified injury of head, initial encounter (principal); R42 Dizziness and giddiness; R51.9 Headache, unspecified; M54.2 Cervicalgia; X58.XXXA Exposure to other specified factors, initial encounter; Y93.9 Activity, unspecified; Y92.9 Unspecified place or not applicable; Y99.8 Other external cause status; Z51.81 Encounter for therapeutic drug level monitoring; Z79.899 Other long term (current) drug therapy
CPT/HCPCS: 36415; 70450; 72125; 80048; 80076; 83735; 84484; 85025; 85610; 93005; 99284

== ENCOUNTER → 2025-07-21 14:01 | Outpatient (BNV) | payer MEDICARE, SELFPAY | PROVIDERS: Emergency Provider Emergency Medicine; PCP Internal Medicine; Visit Provider Internal Medicine | DX: R42 Dizziness and giddiness (principal) | CPT/HCPCS: 93010 ==

== ENCOUNTER → 2025-07-21 14:01 | Outpatient (BNV) | payer MEDICARE, SELFPAY | PROVIDERS: Emergency Provider Emergency Medicine; PCP Internal Medicine; Visit Provider Radiology Diagnostic Radiology | DX: M54.2 Cervicalgia (principal); M47.812 Spondylosis without myelopathy or radiculopathy, cervical region; S09.90XA Unspecified injury of head, initial encounter; W07.XXXA Fall from chair, initial encounter | CPT/HCPCS: 70450; 72125 ==

== ENCOUNTER 2025-07-26 13:25 | Outpatient (AMB) | payer MEDICARE, SELFPAY ==
[2025-07-26 13:28] VITALS: BP 96/53; PULSE 70; RESP 14; TEMP 36.7; O2SAT 96; BMI 26.6
--- NOTE | 2025-07-26 13:28 | AM.OFFVISMDC ---
Intake Vital Signs 07/26/25 13:28 Height 5 ft 4 in Weight 155 lb BMI 26.6 BP 96/53 L Respiration 14 Pulse 70 Pulse Source Pulse Oximeter Temp 98.1 F Temp Source Temporal Artery Scan Pulse Oximetry (%) 96 Oxygen Delivery Method Room Air Intake Visit Reasons: wellness visit - see comments [employer] Teammate Required: No Accompanied by: Spouse Allergies No Known Allergies (No Known Allergies*) Allergy (Verified 07/26/25 13:29) [facility] Medical History (Updated 07/26/25 @ 13:39 by Aly Crespo MD) Unspecified cord compression Anemia Hyperlipidemia Gross hematuria Urinary retention Enlarged prostate Pre-op evaluation Lower extremity weakness Physical deconditioning Muscular deconditioning Bilateral arm weakness DVT (deep venous thrombosis) On Coumadin for atrial fibrillation Chronic indwelling Nolan catheter Weakness Hospital discharge follow-up Dyspnea on exertion Vitamin D deficiency Vasovagal syncope Elevated PSA GERD (gastroesophageal reflux disease) Mild hypercholesterolemia Hypertension Coronary artery disease Walker as ambulation aid BPH (benign prostatic hyperplasia) Indwelling Nolan catheter calcification UTI (urinary tract infection) NSTEMI (non-ST elevated myocardial infarction) 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 Mother No problems noted. Social History Household Members: Spouse and Children Housing: House Do you presently have visiting nurse or other home services: Yes Unable to assess alcohol history related to: Unknown Alcohol intake: current Alcohol intake frequency: does not drink Patient Tobacco Use Status: Former Tobacco user Advance Directives Date on File: 02/10/25 service: No Current occupational status: retired Current occupational exposures/hazards: No Cognitive needs: Yes (walker) Hearing needs: Yes (b/l hearing aids) Vision needs: Yes (rx glasses) Questionnaire Medicare Wellness Checkup What is your age?: 80 or older What gender do you identify with?: male During the past 4 weeks, how much have you been bothered by emotional problems such as feeling anxious, depressed, irritable, sad or downhearted, and blue?: slightly During the past 4 weeks, has your physical & emotional health limited your social activities with family, friends, neighbors, or groups?: moderately During the past 4 weeks, how much bodily pain have you generally had?: very mild pain During the past 4 weeks, was someone available to help you if you needed & wanted help?: yes, as much as I wanted During the past 4 weeks, what was the hardest physical activity you could do for at least 2 minutes?: moderate Can you get to places out of walking distance without help? (For eg., can you travel alone on buses, taxis or drive your car?): No Can you go shopping for groceries or clothes without someone's help?: No Can you prepare your own meals?: No Can you do your housework without help?: No Because of any health problems, do you need the help of another person with your personal care needs such as eating, bathing, dressing or getting around the house?: Yes Can you handle your own money without help?: Yes During the past 4 weeks, how would you rate your health in general?: good During the past 4 weeks how have things been going for you?: good & bad parts about equal Are you having difficulties driving your car?: yes, often Do you always fasten your seat belt when you are in a car?: yes, usually During past 4 weeks, have you been bothered by the following: never: Trouble eating well? and Problems using the telephone?, seldom: Teeth or denture problems?, sometimes: Falling or dizzy when standing up and Tiredness or fatigue? and always: Sexual problems? Have you fallen 2 or more times in the past year?: Yes Are you afraid of falling?: Yes Are you a smoker?: no During the past 4 weeks, how many drinks of wine, beer, or other alcoholic beverages did you have?: no alcohol at all Do you exercise for about 20 minutes 3 or more times a week?: yes, all the time Have you been given information to help with the following?: yes: Hazards in your house that might hurt you? and yes: Keeping track of your medications? How often do you have trouble taking medicines the way you have been told to take them?: I always take medicine as prescribed How confident are you that you can control & manage most of your health problems?: somewhat confident What is your race?: White Mini Mental State Exam (MMSE) Orientation What is the (year) (season) (date) (day) (month)?: year, season, date and day Registration Name of 3 unrelated objects clearly and slowly, then ask patient to repeat all 3 of them. (1st repeat determines score. Make sure they can repeat all three): object 1 and object 2 Score Score: 6 Activity of Daily Living Bathing - sponge bath, tub bath or shower: receives no assistance (gets in/out by self, if usual bathing means Dressing - getting clothes from closets & drawers, including inner/outer garments & fasteners.: gets clothes & gets completely dressed without help Toileting - going to the 'toilet room' for urine/bowel elimination & cleaning self/arranging clothes: goes to toilet room, cleans self, arranges clothes without help Transfer: moves in & out of bed and chair without help (may use support object) Continence: controls urination/bowel movements completely by self Feeding: feeds self without help Total Score: 0 Using telephone: independent Traveling: needs assistance Shopping: independent Preparing meals: needs assistance Housework: needs assistance Taking medicine: independent Managing money: independent PHQ-9 Over the last 2 weeks, how often have you been bothered by any of the following problems? 1. Little interest or pleasure in doing things: not at all 2. Feeling down, depressed, or hopeless: not at all 3. Trouble falling or staying asleep, or sleeping too much: not at all 4. Feeling tired or having little energy: not at all 5. Poor appetite or overeating: not at all 6. Feeling bad about yourself - or that you are a failure or have let yourself or your family down: not at all 7. Trouble concentrating on things, such as reading the newspaper or watching television: not at all 8. Moving or speaking so slowly that other people could have noticed. Or the opposite - being so fidgety or restless that you have been moving around a lot more than usual: not at all 9. Thoughts that you would be better off or of hurting yourself in some way: not at all Total score: 0 Depression Screening Interpretation: Negative Depression Screening Done: Yes 60451 - PHQ-9 Billing: Yes Source: Developed by Drs. Cj Barbosa, Trang Crowley, Ravi Thakur and colleagues, with an educational cortez from [employer]. Physical Exam Vital Signs: Last Vital Signs Temp 98.1 F 07/26/25 13:28 Pulse 70 07/26/25 13:28 Resp 14 07/26/25 13:28 BP 96/53 L 07/26/25 13:28 Pulse Ox 96 07/26/25 13:28 Oxygen Delivery Method Room Air 07/26/25 13:28 BMI result Body Mass Index 26.6 Balance: Normal, needs a walking device Romberg: Negative Tandem Walk: Unable to Walk and Turn: Able to Rise from sit to stand: Unable to Hearing Whisper Pass Individual Screening sheet given, LORETA completed. Assessment & Plan Assessment & Plan (1) Unspecified cord compression: Code(s): G95.20 - Unspecified cord compression Plan: Condition is stable. (2) Annual physical exam: Code(s): Z00.00 - Encounter for general adult medical examination without abnormal findings Plan: History of Present Illness - The patient is an 85-year-old male presenting with concerns about low blood pressure and medication management during his annual wellness exam. - Hypertension: The patient has been on antihypertensive medication for many years, initially prescribed by Dr. Johnson. - The patient reports that his blood pressure, which used to be around 120 mmHg, is now consistently under 100 mmHg, leading to dizziness and lightheadedness. - Atrial fibrillation: The patient is on metoprolol for atrial fibrillation management. - Cervical stenosis: The patient has cervical stenosis with no current interventions planned. - Pressure ulcer: Previously had a pressure ulcer which is now healed. - Urinary tract infection: History of UTI, which is resolved. - Prostatectomy: The patient has undergone prostatectomy. Social History Review of Systems - Cardiovascular: Reports dizziness and lightheadedness, particularly with low blood pressure readings. - Neurological: Denies any other neurological symptoms. Physical Exam General: Cooperative and healthy appearing Nutritional Appearance: Well nourished Orientation/consciousness: Patient oriented x3 Limitations: No limitations Head: Normal to inspection General: Appearance normal, both eyes and all related structures Neck: Normal visual inspection Chest: Normal palpation of entire chest wall Respiratory: N ormal respiratory effort Neurology: Patient oriented x3, reports dizziness and lightheadedness. Results Plan 1. Hypertension - The patient is advised to hold lisinopril due to low blood pressure and dizziness. - The patient is instructed to monitor blood pressure at home and report readings via the patient portal. 2. Atrial Fibrillation - Continue metoprolol for atrial fibrillation management. - Continue warfarin indefinitely to prevent stroke risk associated with atrial fibrillation. Discussion Notes During the visit, I discussed with the patient the need to hold lisinopril due to his low blood pressure and associated symptoms of dizziness. I advised him to monitor his blood pressure at home and report the readings through the patient portal. We also reviewed the importance of continuing metoprolol and warfarin for managing atrial fibrillation and preventing stroke risk. Patient Instructions - Hold lisinopril and monitor blood pressure at home. - Report blood pressure readings via the patient portal. - Continue taking metoprolol and warfarin as prescribed. Medications: Refilled warfarin 5 mg See Protocol PO DAILY 450 tabs 1RF 90 days Quality Reporting (2019) Depression/Bipolar (159/160/161/177) PHQ-9: Total score: 0 Coding Level of Care Code Medicare First (G0438) Est Pt Level 3 (55194) Diagnoses Unspecified cord compression G95.20 Annual physical exam Z00.00 Additional Codes PHQ-9 - 01981 - PHQ-9 Billing: Yes ([id number])
--- OUTSIDE RECORDS SUMMARY | 2025-07-26 14:41 | XMS_ITS | Encounter Summary ---
Author Organization [facility] Address [address] [place] [address] Care Team Providers Care Pneumatic Riveter Name Role Phone Cj Barber DO Primary Care Provider [phone] Encounter Details Date Type Department Care Team (Late Contact Info) Description 01/25/2025 Lab Requisition [facility] - Main Lab [address] [facility] [place] [address] Fidencio Burroughs MD [address] [place] [phone] Encounter for other general examination Social History [...] 08/09/2025 1:10 PM EDT Office Visit [facility] [address] [place] [address] Shahid Ramos NP [address] [place] [address] documented as of this encounter [...] K/mcL LAB HEMETOLOGY METHOD 01/25/2025 11:36 AM [facility] LAB RBC 4.50 4.50 - 5.50 M/mcL LAB HEMETOLOGY METHOD 01/25/2025 11:36 AM [facility] LAB Hemoglobin 13.7 13.5 - 17.5 g/dL LAB HEMETOLOGY METHOD 01/25/2025 11:36 AM [facility] LAB Hematocrit 41.6(L) 42.0 - 54.0 % LAB HEMETOLOGY METHOD 01/25/2025 11:36 AM [facility] LAB MCV 93.3 79.0 - 98.0 FL LAB HEMETOLOGY METHOD 01/25/2025 11:36 AM [facility] LAB MCH 30.7 27.0 - 32.0 pcg LAB HEMETOLOGY METHOD 01/25/2025 11:36 AM [facility] LAB MCHC 32.9 32.0 - 37.0 g/dL LAB HEMETOLOGY METHOD 01/25/2025 11:36 AM [facility] LAB RDW 12.9 11.0 - 15.0 % LAB HEMETOLOGY METHOD 01/25/2025 11:36 AM [facility] LAB Platelets 01/25/2025 11:36 AM [facility] LAB Comment:Not measured. Platel ets appear adequate but clumped MPV 11.1(H) 7.0 - 11.0 FL LAB HEMETOLOGY METHOD 01/25/2025 11:36 AM [facility] LAB NRBC 0.0 <1.0 % LAB HEMETOLOGY METHOD 01/25/2025 11:36 AM EST [facility] LAB NRBC Absolute 0.00 <0.10 K/mcL LAB HEMETOLOGY METHOD 01/25/2025 11:36 AM EST [facility] Blood Venous blood specimen / Unknown Venipuncture / Unknown 01/25/2025 7:02 AM EST 01/25/2025 10:36 AM EST us Fidencio Burroughs MD LAB BLOOD ORDERABLES Final Res ult [facility] [address] [place] [address], * (ABNORMAL) Comprehensive metabolic panel (01/25/2025 7:02 AM EST) Sodium 137 133 - 145 mmol/L LAB CHEMISTRY METHOD 01/25/2025 11:50 AM [facility] LAB Potassium 3.9 3.5 - 5.5 mmol/L LAB CHEMISTRY METHOD 01/25/2025 11:50 AM [facility] Chloride 101 96 - 110 mmol/L LAB CHEMISTRY METHOD 01/25/2025 11:50 AM [facility] CO2 27 21 - 32 mmol/L LAB CHEMISTRY METHOD 01/25/2025 11:50 AM [facility] Anion Gap 9 3 - 11 LAB CHEMISTRY METHOD 01/25/2025 11:50 AM [facility] Glucose 87 70 - 100 mg/dL LAB CHEMISTRY METHOD 01/25/2025 11:50 AM [facility] BUN 10 5 - 25 mg/dL LAB CHEMISTRY METHOD 01/25/2025 11:50 AM [facility] Creatinine 0.50(L) 0.70 - 1.30 mg/dL LAB CHEMISTRY METHOD 01/25/2025 11:50 AM [facility] LAB eGFR 100 >=60 mL/min/1. 73m2 LAB CHEMISTRY METHOD 01/25/2025 11:50 AM [facility] LAB Comment:Calculation based on the Chronic Kidney Disease Epidemiology Collaboration (CKD-EPI) equation refit without adjustment for race. BUN/Creatinine Ratio 20.0 LAB CHEMISTRY METHOD 01/25/2025 11:50 AM [facility] Calcium 9.1 8.5 - 10.5 mg/dL LAB CHEMISTRY METHOD 01/25/2025 11:50 AM [facility] AST (SGOT) 28 10 - 42 unit/L LAB CHEMISTRY METHOD 01/25/2025 11:50 AM [facility] ALT (SGPT) 38 10 - 60 unit/L LAB CHEMISTRY METHOD 01/25/2025 11:50 AM [facility] Alkaline Phosphatase 127(H) 42 - 121 unit/L LAB CHEMISTRY METHOD 01/25/2025 11:50 AM [facility] Total Protein 6.1 6.0 - 8.0 g/dL LAB CHEMISTRY METHOD 01/25/2025 11:50 AM [facility] Albumin 3.1(L) 3.2 - 5.0 g/dL LAB CHEMISTRY METHOD 01/25/2025 11:50 AM [facility] Total Bilirubin 0.7 0.0 - 1.4 mg/dL LAB CHEMISTRY METHOD 01/25/2025 11:50 AM [facility] Blood Venous blood specimen / Unknown Venipuncture / Unknown 01/25/2025 7:02 AM EST 01/25/2025 10:36 AM EST us Fidencio Burroughs MD LAB BLOOD ORDERABLES Final Res ult [facility] [address] [place] [address], documented in this encounter Visit Diagnoses Diagnosis Encounter for other general examination documented in this encounter Additional Health Concerns Infection Onset Date Last Indicated Resolved Time ESBL 05/25/2025 05/25/2025 documented as of this encounter Care Teams Pneumatic Riveter Relationship Specialty Start Date End Date Cj Barber DO [address] [place] [phone] PCP - General 04/21/13 documented as of this encounter
--- OUTSIDE RECORDS SUMMARY | 2025-07-26 14:41 | XMS_ITS | Encounter Summary ---
Author Organization [facility] Address [address] [place] [address] Care Team Providers Care Magneto Specialist Name Role Phone Cj Barber DO Primary Care Provider [phone] Encounter Details Date Type Department Care Team (Late Contact Info) Description 04/08/[address] [facility] - Main Lab [address] [facility] [place] [phone] Luis Miguel Caceres MD [address] [facility] [address] [place] [phone] Gross hematuria Social History Tobacco Use Types [...] Description 08/09/2025 1:10 PM EDT Office Visit [facility] - [facility] [address] [place] [address] Shahid Ramos NP [address] [place] [address] [address] [place] [address] documented as of this encounter Procedures Procedure Name Priority Date/Time Associated Diagnosis Comments CULTURE URINE Routine 04/08/2025 12:00 AM EDT Gross hematuria documented in this encounter Results * Culture urine (04/08/2025 12:00 AM EDT) Culture, Urine >100,000 CFU/mL Mixed bacterial morphotypes present suggestive of possible contamination during collection. Suggest appropriate recollection if clinically indicated. 04/10/2025 10:30 AM EDT [facility] Urine Indwelling urinary catheter / Unknown 04/08/2025 04/08/2025 12:46 PM EDT us Luis Miguel Caceres MD LAB MICROBIOLOGY - GENERAL O RDERABLES Final Result [facility] [address] [place] [address], documented in this encounter Visit Diagnoses Diagnosis Gross hematuria documented in this encounter Additional Health Concerns Infection Onset Date Last Indicated Resolved Time ESBL 05/25/2025 05/25/2025 documented as of this encounter Care Teams Magneto Specialist Relationship Specialty Start Date End Date Cj Barber DO [address] [place] [phone] PCP - General 04/21/13 documented as of this encounter
--- OUTSIDE RECORDS SUMMARY | 2025-07-26 14:41 | XMS_ITS | Encounter Summary ---
Author Organization [facility] Address [address] [place] [address] Care Team Providers Care Content Designer Name Role Phone Cj Barber DO Primary Care Provider [phone] Encounter Details Date Type Department Care Team (Late Contact Info) Description 02/26/2025 Lab Requisition [facility] - Main Lab [address] [facility] [place] [address] Fidencio Burroughs MD [address] [place] [phone] Encounter for other general examination Social History [...] Description 08/09/2025 1:10 PM EDT Office Visit [facility] [address] [place] [address] Shahid Ramos NP [address] [place] [address] documented as of this encounter [...] CBC auto differential (02/26/2025 6:35 AM EDT) [facility] WBC 11.9(H) 4.8 - 10.8 K/mcL [...] LAB HEMETOLOGY METHOD 02/26/2025 11:12 AM EDT [facility] Basophils Absolute 0.02 0.00 - 0.20 K/[facility] LAB HEMETOLOGY METHOD 02/26/2025 11:12 AM T [facility] Immature Granulocytes Absolute 0.04(H) 0.00 - 0.03 K/[facility] LAB HEMETOLOGY METHOD 02/26/2025 11:12 AM T [facility] Blood Venous blood specimen / Unknown Venipuncture / Unknown 02/26/2025 6:35 AM EDT 02/26/2025 9:37 AM EDT us Fidencio Burroughs MD LAB BLOOD ORDERABLES Final Res ult [facility] [address] [place] [address], * (ABNORMAL) Comprehensive metabolic panel (02/26/2025 6:35 [...] LAB BLOOD ORDERABLES Final Res ult [facility] [address] [place] [address], documented in this encounter Visit Diagnoses Diagnosis Encounter for other general examination documented in this encounter Additional Health Concerns Infection Onset Date Last Indicated Resolved Time ESBL 05/25/2025 05/25/2025 documented as of this encounter Care Teams Content Designer Relationship Specialty Start Date End Date Cj Barber DO [address] [place] [phone] PCP - General 04/21/13 documented as of this encounter
--- OUTSIDE RECORDS SUMMARY | 2025-07-26 14:41 | XMS_ITS | Encounter Summary ---
Author Organization [facility] Address [address] [place] [address] Care Team Providers Care Mirror Fabrication Supervisor Name Role Phone Cj Barber DO Primary Care Provider [phone] Encounter Details Date Type Department Care Team (Late Contact Info) Description 03/01/2025 Lab Requisition [facility] - Main Lab 299 [facility] [place] [address] Fidencio Burroughs MD [address] [place] [address] Encounter for other general examination Social History [...] Description 08/09/2025 1:10 PM EDT Office Visit [facility] Associates [facility] [address] [place] [address] Shahid Ramos NP [address] [place] [address] documented as of this encounter [...] CBC auto differential (03/01/2025 5:29 AM EDT) [facility] WBC 8.8 4.8 - 10.8 K/mcL LAB HEMETOLOGY METHOD 03/01/2025 11:58 AM [facility] RBC 3.60(L) 4.50 - 5.50 M/mcL LAB HEMETOLOGY METHOD 03/01/2025 11:58 AM [facility] Hemoglobin 11.0(L) 13.5 - 17.5 g/dL LAB HEMETOLOGY METHOD 03/01/2025 11:58 AM [facility] Hematocrit 33.0(L) 42.0 - 54.0 % LAB HEMETOLOGY METHOD 03/01/2025 11:58 AM [facility] MCV 91.2 79.0 - 98.0 FL LAB HEMETOLOGY METHOD 03/01/2025 11:58 AM [facility] MCH 30.4 27.0 - 32.0 pcg LAB HEMETOLOGY METHOD 03/01/2025 11:58 AM [facility] MCHC 33.3 32.0 - 37.0 g/dL LAB HEMETOLOGY METHOD 03/01/2025 11:58 AM [facility] RDW 13.9 11.0 - 15.0 % LAB HEMETOLOGY METHOD 03/01/2025 11:58 AM [facility] Platelets 03/01/2025 11:58 AM [facility] Comment:Not measured. Unable to quantitate due to platelet clumping MPV 10.2 7.0 - 11.0 FL LAB HEMETOLOGY METHOD 03/01/2025 11:58 AM [facility] NRBC 0.0 <1.0 % LAB HEMETOLOGY METHOD 03/01/2025 11:58 AM [facility] NRBC Absolute 0.00 <0.10 K/mcL LAB HEMETOLOGY METHOD 03/01/2025 11:58 AM [facility] Neutrophils Relative 76.0 % LAB HEMETOLOGY METHOD 03/01/2025 11:58 AM [facility] Lymphocytes Relative 13.4 % LAB HEMETOLOGY METHOD 03/01/2025 11:58 AM [facility] Monocytes Relative 9.0 % LAB HEMETOLOGY METHOD 03/01/2025 11:58 AM [facility] Eosinophils Relative 1.1 % LAB HEMETOLOGY METHOD 03/01/2025 11:58 AM [facility] Basophils Relative 0.2 % LAB HEMETOLOGY METHOD 03/01/2025 11:58 AM [facility] Immature Granulocytes Relative 0.3 % LAB HEMETOLOGY METHOD 03/01/2025 11:58 AM [facility] Neutrophils Absolute 6.69 1.50 - 7.00 K/mcL LAB HEMETOLOGY METHOD 03/01/2025 11:58 AM [facility] Lymphocytes Absolute 1.18 1.00 - 5.00 K/mcL LAB HEMETOLOGY METHOD 03/01/2025 11:58 AM [facility] Monocytes Absolute 0.79 0.20 - 1.00 K/mcL LAB HEMETOLOGY METHOD 03/01/2025 11:58 AM [facility] Eosinophils Absolute 0.10 0.00 - 0.50 K/mcL LAB HEMETOLOGY METHOD 03/01/2025 11:58 AM EDT [facility] Basophils Absolute 0.02 0.00 - 0.20 K/mcL LAB HEMETOLOGY METHOD 03/01/2025 11:58 AM EDT [facility] Immature Granulocytes Absolute 0.03 0.00 - 0.03 K/mcL LAB HEMETOLOGY METHOD 03/01/2025 11:58 AM EDT [facility] Blood Venous blood specimen / Unknown Venipuncture / Unknown 03/01/2025 5:29 AM EDT 03/01/2025 9:52 AM EDT us Fidencio Burroughs MD LAB BLOOD ORDERABLES Final Res ult [facility] [address] [place] [address], * (ABNORMAL) Comprehensive metabolic panel (03/01/2025 5:29 AM EDT) Sodium 137 133 - 145 mmol/L LAB CHEMISTRY METHOD 03/01/2025 12:08 PM [facility] Potassium 4.1 3.5 - 5.5 mmol/L LAB CHEMISTRY METHOD 03/01/2025 12:08 PM [facility] Chloride 101 96 - 110 mmol/L LAB CHEMISTRY METHOD 03/01/2025 12:08 PM [facility] CO2 30 21 - 32 mmol/L LAB CHEMISTRY METHOD 03/01/2025 12:08 PM [facility] Anion Gap 6 3 - 11 LAB CHEMISTRY METHOD 03/01/2025 12:08 PM [facility] Glucose 82 70 - 100 mg/dL LAB CHEMISTRY METHOD 03/01/2025 12:08 PM [facility] BUN 15 5 - 25 mg/dL LAB CHEMISTRY METHOD 03/01/2025 12:08 PM [facility] Creatinine 0.41(L) 0.70 - 1.30 mg/dL LAB CHEMISTRY METHOD 03/01/2025 12:08 PM [facility] eGFR 106 >=60 mL/min/1. 73m2 LAB CHEMISTRY METHOD 03/01/2025 12:08 PM [facility] Comment:Calculation based on the Chronic Kidney Disease Epidemiology Collaboration (CKD-EPI) equation refit without adjustment for race. BUN/Creatinine Ratio 36.6 LAB CHEMISTRY METHOD 03/01/2025 12:08 PM [facility] Calcium 8.7 8.5 - 10.5 mg/dL LAB CHEMISTRY METHOD 03/01/2025 12:08 PM [facility] AST (SGOT) 37 10 - 42 unit/L LAB CHEMISTRY METHOD 03/01/2025 12:08 PM [facility] ALT (SGPT) 64(H) 10 - 60 unit/L LAB CHEMISTRY METHOD 03/01/2025 12:08 PM [facility] Alkaline Phosphatase 105 42 - 121 unit/L LAB CHEMISTRY METHOD 03/01/2025 12:08 PM [facility] Total Protein 5.1(L) 6.0 - 8.0 g/dL LAB CHEMISTRY METHOD 03/01/2025 12:08 PM [facility] Albumin 2.7(L) 3.2 - 5.0 g/dL LAB CHEMISTRY METHOD 03/01/2025 12:08 PM [facility] Total Bilirubin 1.1 0.0 - 1.4 mg/dL LAB CHEMISTRY METHOD 03/01/2025 12:08 PM [facility] Blood Venous blood specimen / Unknown Venipuncture / Unknown 03/01/2025 5:29 AM EDT 03/01/2025 9:52 AM EDT us Fidencio Burroughs MD LAB BLOOD ORDERABLES Final Res ult 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
--- OUTSIDE RECORDS SUMMARY | 2025-07-26 14:41 | XMS_ITS | Encounter Summary ---
Author Organization [facility] Address [address] [place] [address] Care Team Providers Care Supervisor Coal Handling Name Role Phone Cj Barber DO Primary Care Provider [phone] Encounter Details Date Type Department Care Team (Late Contact Info) Description 02/19/2025 Lab Requisition [facility] - Main Lab 299 [facility] [place] [address] Fidencio Burroughs MD [address] [place] [address] Encounter for other general examination Social History [...] Description 08/09/2025 1:10 PM EDT Office Visit [facility] [address] [place] [address] Shahid Ramos NP [address] [place] [address] documented as of this encounter [...] CBC auto differential (02/19/2025 5:42 AM EDT) [facility] WBC 10.5 4.8 - 10.8 K/mcL LAB HEMETOLOGY METHOD 02/19/2025 12:54 PM EDT [facility] RBC 5.10 4.50 - 5.50 M/mcL LAB HEMETOLOGY METHOD 02/19/2025 12:54 PM EDT [facility] Hemoglobin 15.6 13.5 - 17.5 g/dL LAB HEMETOLOGY METHOD 02/19/2025 12:54 PM EDT [facility] Hematocrit 47.5 42.0 - 54.0 % LAB HEMETOLOGY METHOD 02/19/2025 12:54 PM EDT [facility] MCV 92.4 79.0 - 98.0 FL LAB HEMETOLOGY METHOD 02/19/2025 12:54 PM EDT [facility] MCH 30.4 27.0 - 32.0 pcg LAB HEMETOLOGY METHOD 02/19/2025 12:54 PM EDT [facility] MCHC 32.8 32.0 - 37.0 g/dL LAB HEMETOLOGY METHOD 02/19/2025 12:54 PM T [facility] RDW 12.8 11.0 - 15.0 % LAB HEMETOLOGY METHOD 02/19/2025 12:54 PM EDT [facility] Platelets 02/19/2025 12:54 PM EDT [facility] Comment:Not measured. Platel ets appear adequate but clumped Suggest drawing blue top tube with CBC MPV 10.7 7.0 - 11.0 FL LAB HEMETOLOGY METHOD 02/[facility]25 [facility] NRBC 0.0 <1.0 % LAB HEMETOLOGY METHOD 02/19/2025 12:54 PM EDT [facility] NRBC Absolute 0.00 <0.10 K/mcL LAB HEMETOLOGY METHOD 02/19/2025 12:54 PM [facility] Neutrophils Relative 83.5 % LAB HEMETOLOGY METHOD 02/19/2025 12:54 PM [facility] Lymphocytes Relative 10.5 % LAB HEMETOLOGY METHOD 02/19/2025 12:54 PM [facility] Monocytes Relative 5.4 % LAB HEMETOLOGY METHOD 02/19/2025 12:54 PM [facility] Eosinophils Relative 0.0 % LAB HEMETOLOGY METHOD 02/19/2025 12:54 PM [facility] Basophils Relative 0.1 % LAB HEMETOLOGY METHOD 02/19/2025 12:54 PM [facility] Immature Granulocytes Relative 0.5 % LAB HEMETOLOGY METHOD 02/19/2025 12:54 [facility] Neutrophils Absolute 8.77(H) 1.50 - 7.00 K/mcL LAB HEMETOLOGY METHOD 02/19/2025 12:54 [facility] Lymphocytes Absolute 1.10 1.00 - 5.00 K/mcL LAB HEMETOLOGY METHOD 02/19/2025 12:54 [facility] Monocytes Absolute 0.57 0.20 - 1.00 K/mcL LAB HEMETOLOGY METHOD 02/19/2025 12:54 PM EDT [facility] Eosinophils Absolute 0.00 0.00 - 0.50 K/[facility] LAB HEMETOLOGY METHOD 02/19/2025 12:54 PM EDT [facility] Basophils Absolute 0.01 0.00 - 0.20 K/[facility] LAB HEMETOLOGY METHOD 02/19/2025 12:54 PM EDT [facility] Immature Granulocytes Absolute 0.05(H) 0.00 - 0.03 K/[facility] LAB HEMETOLOGY METHOD 02/19/2025 12:54 PM EDT [facility] Blood Venous blood specimen / Unknown Venipuncture / Unknown 02/19/2025 5:42 AM EDT 02/19/2025 9:50 AM EDT Fidencio Burroughs MD LAB BLOOD ORDERABLES Final Res ult Performing Organization Address City/[facility]/ZIP Co de Phone Number [facility] [address] [place] [address], [place] [phone] * Magnesium (02/19/2025 5:42 AM EDT) Magnesium 2.4 1.9 - 2.6 mg/dL LAB CHEMISTRY METHOD 02/19/2025 12:23 PM EDT [facility] Blood Venous blood specimen / Unknown Venipuncture / Unknown 02/19/2025 5:42 AM EDT 02/19/2025 9:50 AM EDT Fidencio Burroughs MD LAB BLOOD ORDERABLES Final Res ult [facility] [address] [place] [address], [place] [phone] * (ABNORMAL) Comprehensive metabolic panel (02/19/2025 5:42 AM EDT) Sodium 131(L) 133 - 145 mmol/L LAB CHEMISTRY METHOD 02/19/2025 12:41 PM [facility] Potassium 4.5 3.5 - 5.5 mmol/L LAB CHEMISTRY METHOD 02/19/2025 12:41 PM [facility] Chloride 94(L) 96 - 110 mmol/L LAB CHEMISTRY METHOD 02/19/2025 12:41 PM [facility] CO2 29 21 - 32 mmol/L LAB CHEMISTRY METHOD 02/19/2025 12:41 PM [facility] Anion Gap 8 3 - 11 LAB CHEMISTRY METHOD 02/19/2025 12:41 PM [facility] Glucose 61(L) 70 - 100 mg/dL LAB CHEMISTRY METHOD 02/19/2025 12:41 PM [facility] BUN 23 5 - 25 mg/dL LAB CHEMISTRY METHOD 02/19/2025 12:41 PM [facility] Creatinine 0.70 0.70 - 1.30 mg/dL LAB CHEMISTRY METHOD 02/19/2025 12:41 PM [facility] eGFR 90 >=60 mL/min/1. 73m2 LAB CHEMISTRY METHOD 02/19/2025 12:41 PM [facility] Comment:Calculation based on the Chronic Kidney Disease Epidemiology Collaboration (CKD-EPI) equation refit without adjustment for race. BUN/Creatinine Ratio 32.9 LAB CHEMISTRY METHOD 02/19/2025 12:41 PM [facility] Calcium 9.1 8.5 - 10.5 mg/dL LAB CHEMISTRY METHOD 02/19/2025 12:41 PM [facility] AST (SGOT) 31 10 - 42 unit/L LAB CHEMISTRY METHOD 02/19/2025 12:41 PM [facility] ALT (SGPT) 90(H) 10 - 60 unit/L LAB CHEMISTRY METHOD 02/19/2025 12:41 PM [facility] Alkaline Phosphatase 127(H) 42 - 121 unit/L LAB CHEMISTRY METHOD 02/19/2025 12:41 PM EDT [facility] Total Protein 6.2 6.0 - 8.0 g/dL LAB CHEMISTRY METHOD 02/19/2025 12:41 PM EDT [facility] Albumin 3.3 3.2 - 5.0 g/dL LAB CHEMISTRY METHOD 02/19/2025 12:41 PM EDT [facility] Total Bilirubin 0.7 0.0 - 1.4 mg/dL LAB CHEMISTRY METHOD 02/19/2025 12:41 PM EDT [facility] Blood Venous blood specimen / Unknown Venipuncture / Unknown 02/19/2025 5:42 AM EDT 02/19/2025 9:50 AM EDT us Fidencio Burroughs MD LAB BLOOD ORDERABLES Final Res ult [facility] [address] [place] [address], [place] [phone] documented in this encounter Visit Diagnoses Diagnosis Encounter for other general examination documented in this encounter Additional Health Concerns Infection Onset 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
--- OUTSIDE RECORDS SUMMARY | 2025-07-26 14:41 | XMS_ITS | Encounter Summary ---
Author Organization [facility] Address [address] [place] [address] Care Team Providers Care Etcher Machine Name Role Phone Cj Barber DO Primary Care Provider [phone] Encounter Details Date Type Department Care Team (Late Contact Info) Description 02/25/2025 Lab Requisition [facility] - Main Lab 299 [facility] [place] [address] Fidencio Burroughs MD [address] [place] [phone] Hematuria, unspecified Social History Tobacco Use Types [...] 1:10 PM EDT Office Visit [facility] [address] [place] [address] Shahid Ramos NP [address] [place] [address] documented as of this encounter [...] MICROBIOLOGY - GENERAL ORD ERABLES Final Result [facility] [address] [place] [address], [place] [phone] * (ABNORMAL) Urinalysis with reflex microscopic and culture (02/24/2025 6:00 PM EDT) Pathologist [facility] Specific [place] Urine 1.023 1.003 - 1.030 LAB URINALYSIS - AUTOMATED METHOD 02/25/2025 12:09 PM EDT [facility] pH, Urine 6.0 5.0 - 8.0 pH LAB URINALYSIS - AUTOMATED METHOD 02/25/2025 12:09 PM EDT [facility] Leukocytes, Urine Large(A) Negative LAB URINALYSIS - AUTOMATED METHOD 02/25/2025 12:[facility] Nitrite, Urine Negative Negative [...] 12:09 PM EDT [facility] Urine Indwelling urinary catheter / Unknown 02/24/2025 6:00 PM EDT 02/25/2025 11:30 AM EDT us Fidencio Burroughs MD LAB URINE ORDERABLES Final Res ult Performing Organization Address City/[facility]/ZIP Co de Phone Number [facility] [address] [place] [address], [place] [phone] * Mckeon urine culture tube (02/24/2025 6:00 PM EDT) Extra Tube Hold for add-ons. 02/25/2025 1:01 PM EDT [facility] Comment:Auto resulted. Urine Indwelling urinary catheter / Unknown 02/24/2025 6:00 PM EDT 02/25/2025 11:30 AM EDT us Fidencio Burroughs MD LAB URINE ORDERABLES Final Res ult Performing Organization Address [facility] Co de Phone Number [facility] [address] [place] [address], [place] [phone] documented in this encounter Visit Diagnoses Diagnosis Hematuria, unspecified documented in this encounter Additional Health Concerns Infection Onset Date Last Indicated Resolved Time ESBL 05/25/2025 05/25/2025 documented as of this encounter Care Teams Etcher Machine Relationship Specialty Start Date End Date Cj Barber DO [address] [place] [phone] PCP - General 04/21/13 documented as of this encounter
--- OUTSIDE RECORDS SUMMARY | 2025-07-26 14:41 | XMS_ITS | Encounter Summary ---
Author Organization [facility] Address [address] [place] [address] Care Team Providers Care Touch Up Painter Hand Name Role Phone Cj Barber DO Primary Care Provider [phone] Encounter Details Date Type Department Care Team (Late Contact Info) Description 02/24/2025 Lab Requisition [facility] - Main Lab 299 [facility] [place] [address] Fidencio Burroughs MD [address] [place] [phone] Encounter for other general examination Social History [...] 08/09/2025 1:10 PM EDT Office Visit [facility]iology [facility] [address] [place] [address] Shahid Ramos NP [address] [place] [address] documented as of this encounter [...] K/mcL LAB HEMETOLOGY METHOD 02/24/2025 10:22 AM [facility] RBC 4.20(L) 4.50 - 5.50 M/mcL LAB HEMETOLOGY METHOD 02/24/2025 10:22 AM [facility] Hemoglobin 12.6(L) 13.5 - 17.5 g/dL LAB HEMETOLOGY METHOD 02/24/2025 10:22 AM [facility] Hematocrit 37.1(L) 42.0 - 54.0 % LAB HEMETOLOGY METHOD 02/24/2025 10:22 AM [facility] MCV 89.4 79.0 - 98.0 FL LAB HEMETOLOGY METHOD 02/24/2025 10:22 AM [facility] MCH 30.4 27.0 - 32.0 pcg LAB HEMETOLOGY METHOD 02/24/2025 10:22 AM [facility] MCHC 34.0 32.0 - 37.0 g/dL LAB HEMETOLOGY METHOD 02/24/2025 10:22 AM [facility] RDW 13.3 11.0 - 15.0 % LAB HEMETOLOGY METHOD 02/24/2025 10:22 AM [facility] Platelets 02/24/2025 10:22 AM [facility] Comment:Not measured. Platel ets appear adequate but clumped MPV 10.3 7.0 - 11.0 FL LAB HEMETOLOGY METHOD 02/24/2025 10:22 AM EDT [facility] NRBC 0.0 <1.0 % LAB HEMETOLOGY METHOD 02/24/2025 10:22 AM [facility] NRBC Absolute 0.00 <0.10 K/mcL LAB HEMETOLOGY METHOD 02/24/2025 10:22 AM [facility] Blood Venous blood specimen / Unknown Venipuncture / Unknown 02/24/2025 5:01 AM EDT 02/24/2025 8:10 AM EDT us Fidencio Burroughs MD LAB BLOOD ORDERABLES Final Res ult [facility] [address] [place] [address], [place] [phone] * (ABNORMAL) Comprehensive metabolic panel (02/24/2025 5:01 AM EDT) Sodium 135 133 - 145 mmol/L LAB CHEMISTRY METHOD 02/24/2025 10:11 AM [facility] Potassium 3.9 3.5 - 5.5 mmol/L LAB CHEMISTRY METHOD 02/24/2025 10:11 AM [facility] Chloride 98 96 - 110 mmol/L LAB CHEMISTRY METHOD 02/24/2025 10:11 AM [facility] CO2 29 21 - 32 mmol/L LAB CHEMISTRY METHOD 02/24/2025 10:11 AM [facility] Anion Gap 8 3 - 11 LAB CHEMISTRY METHOD 02/24/2025 10:11 AM [facility] Glucose 73 70 - 100 mg/dL LAB CHEMISTRY METHOD 02/24/2025 10:11 AM [facility] BUN 18 5 - 25 mg/dL LAB CHEMISTRY METHOD 02/24/2025 10:11 AM [facility] Creatinine 0.56(L) 0.70 - 1.30 mg/dL LAB CHEMISTRY METHOD 02/24/2025 10:11 AM [facility] eGFR 97 >=60 mL/min/1. 73m2 LAB CHEMISTRY METHOD 02/24/2025 10:11 AM [facility] Comment:Calculation based on the Chronic Kidney Disease Epidemiology Collaboration (CKD-EPI) equation refit without adjustment for race. BUN/Creatinine Ratio 32.1 LAB CHEMISTRY METHOD 02/24/2025 10:11 AM [facility] Calcium 8.8 8.5 - 10.5 mg/dL LAB CHEMISTRY METHOD 02/24/2025 10:11 AM [facility] AST (SGOT) 33 10 - 42 unit/L LAB CHEMISTRY METHOD 02/24/2025 10:11 AM [facility] ALT (SGPT) 55 10 - 60 unit/L LAB CHEMISTRY METHOD 02/24/2025 10:11 AM [facility] Alkaline Phosphatase 100 42 - 121 unit/L LAB CHEMISTRY METHOD 02/24/2025 10:11 AM [facility] Total Protein 5.4(L) 6.0 - 8.0 g/dL LAB CHEMISTRY METHOD 02/24/2025 10:11 AM [facility] Albumin 2.9(L) 3.2 - 5.0 g/dL LAB CHEMISTRY METHOD 02/24/2025 10:11 AM [facility] Total Bilirubin 0.7 0.0 - 1.4 mg/dL LAB CHEMISTRY METHOD 02/24/2025 10:11 AM [facility] Blood Venous blood specimen / Unknown Venipuncture / Unknown 02/24/2025 5:01 AM EDT 02/24/2025 8:10 AM EDT us Fidencio Burroughs MD LAB BLOOD ORDERABLES Final Res ult [facility] [address] [place] [address], documented in this encounter Visit Diagnoses Diagnosis Encounter for other general examination documented in this encounter Additional Health Concerns 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
--- OUTSIDE RECORDS SUMMARY | 2025-07-26 14:41 | XMS_ITS | Encounter Summary ---
Author Organization [facility] Address [address] [place] [address] Care Team Providers Care Fleet Maintenance Manager Name Role Phone Cj Barber DO Primary Care Provider [phone] Encounter Details Date Type Department Care Team (Late st Contact Info) Description 05/25/2025 Lab Requisition [facility] - Main Lab 299 [facility] [place] [address] Hilton Saavedra, [address] [place] [address] Urinary tract infection, site not specified; Benign [...] Description 08/09/2025 1:10 PM EDT Office Visit [facility] [address] [place] [address] Shahid Ramos NP [address] [place] [address] [address] [place] [phone] documented as of this encounter Procedures Procedure Name Priority Date/Time Associated Diagnosis Comments CULTURE URINE Routine 05/25/2025 12:00 AM EDT Urinary tract infection, site not specified Benign prostatic hyperplasia with lower urinary tract symptoms documented in this encounter Results * (ABNORMAL) Culture urine (05/25/2025 12:00 AM EDT) Culture, Urine >100,000 CFU/mL Proteus mirabilis ESBL(A) BAUDILIO 05/29/2025 8:45 AM EDT [facility] Comment: THIS ORGANISM [...] Pseudomonas aeruginosa(A) BAUDILIO 05/29/2025 8:45 AM EDT [facility] Comment: The organism value for this result has been updated. These results have been appended to the previously preliminary verified report. This is an edited result. Previous organism was Gram negative bacilli on 05/27/2025 at 1022 EDT. Urine Urine specimen obtained by clean catch procedure / Unknown 05/25/2025 05/25/2025 5:52 PM EDT Narrative [facility] - 05/29/2025 8:45 [...] Susceptible Pseudomonas aeruginosa Cefepime DISK DIFFUSION Susceptible [facility] MICROBIOLOGY - GENERAL SHMUELE GUILLAUME Final Result [facility] [address] [place] [address], documented in this encounter Visit Diagnoses Diagnosis Urinary tract infection, site not specified Benign prostatic hyperplasia with lower urinary tract symptoms documented in this encounter Additional Health Concerns Infection Onset Date Last Indicated Resolved Time ESBL 05/25/2025 05/25/2025 documented as of this encounter Care Teams Fleet Maintenance Manager Relationship Specialty Start Date End Date Cj Barber DO [address] [place] [phone] PCP - General 04/21/13 documented as of this encounter
--- OUTSIDE RECORDS SUMMARY | 2025-07-26 14:41 | XMS_ITS | Encounter Summary ---
Author Organization [facility] Address [address] [place] [address] Care Team Providers Care Social Services Director Name Role Phone Cj Barber DO Primary Care Provider [phone] Encounter Details Date Type Department Care Team (Late Contact Info) Description 03/01/2025 Lab Requisition [facility] - Main Lab 299 [facility] [place] [address] Fidencio Burroughs MD [address] [place] [phone] Encounter for other general examination Social History [...] Description 08/09/2025 1:10 PM EDT Office Visit [facility] Cardiology Associates [facility] [address] [place] [address] Shahid Ramos NP [address] [place] [address] documented as of this encounter [...] albicans/du bliniensis( A) 03/07/2025 12:41 PM EDT [facility] Comment: Edited result: Previously reported as Yeast on 03/07/2025 at 1047 EDT. Swab Penile structure / Unknown 03/01/2025 5:22 AM EDT 03/01/2025 10:41 AM EDT us Fidencio Burroughs MD LAB MICROBIOLOGY - GENERAL ORD ERABLES Final Result [facility] [address] [place] [address], [place] [phone] * (ABNORMAL) Culture wound with gram stain (03/01/2025 5:22 AM EDT) Culture, Wound Proteus mirabilis(A) BAUDILIO 03/09/2025 9:56 AM EDT [facility] [...] Enterococcus faecalis(A) BAUDILIO 03/09/2025 9:56 AM EDT [facility] Comment: The organism value for this result has been updated. These results have been appended to the previously preliminary verified report. This is an edited result. Previous organism was Streptococcus Gamma non hemolytic on 03/06/2025 at 0911 EDT. Culture, Wound Pseudomonas aeruginosa(A) BAUDILIO 03/09/2025 9:56 AM EDT [facility] Comment: The organism value for this result has been updated. These results have been appended to the previously preliminary verified report. This is an edited result. Previous organism was Gram negative bacilli on 03/07/2025 at 1012 EDT. Gram Stain Result Moderate Polymorphonuclear leukocytes 03/09/2025 9:56 AM EDT [facility] Gram Stain Result Few Epithelial cells 03/09/2025 9:56 AM EDT [facility] Gram Stain Result No organisms seen 03/09/2025 9:56 AM EDT [facility] Swab Penile structure / [...] MICROBIOLOGY - GENERAL ORD ERABLES Final Result [facility] [address] [place] [address], documented in this encounter Visit Diagnoses Diagnosis Encounter for other general examination documented in this encounter Additional Health Concerns Infection Onset Date Last Indicated Resolved Time ESBL 05/25/2025 05/25/2025 documented as of this encounter Care Teams Social Services Director Relationship Specialty Start Date End Date Cj Barber DO [address] [place] [phone] PCP - General 04/21/13 documented as of this encounter
--- OUTSIDE RECORDS SUMMARY | 2025-07-26 14:42 | XMS_ITS | Encounter Summary ---
Author Organization [facility] Address [address] [place] [address] Care Team Providers Care Flour Worker Name Role Phone Cj Barber DO Primary Care Provider [phone] Encounter Details Date Type Department Care Team (Late Contact Info) Description 12/17/2024 Lab Requisition [facility] - Main Lab 299 [facility] [place] [phone] Horace Gu MD [address] [facility] [address] [place] [phone] Urinary tract infection, site not specified Social [...] Description 08/09/2025 1:10 PM EDT Office Visit [facility]iology Associates - [facility] [address] [place] [address] Shahid Ramos NP [address] [place] [address] Dr [address] [place] [address] documented as of this encounter Procedures Procedure Name Priority Date/Time Associated Diagnosis Comments CULTURE URINE Routine 12/17/2024 12:00 AM EST Urinary tract infection, site not specified documented in this encounter Results * (ABNORMAL) Culture urine (12/17/2024 12:00 AM EST) Culture, Urine >100,000 CFU/mL Proteus mirabilis(A ) BAUDILIO 12/19/2024 7:46 AM EST [facility] Comment: [...] MICROBIOLOGY - GENERAL TRISTEN GALAVIZ Final Result [facility] [address] [place] [address], [place] [phone] documented in this encounter Visit Diagnoses Diagnosis Urinary tract infection, site not specified documented in this encounter Additional Health Concerns Infection Onset Date Last Indicated Resolved Time ESBL 05/25/2025 05/25/2025 documented as of this encounter Care Teams Flour Worker Relationship Specialty Start Date End Date Cj Barber DO [address] [place] [phone] PCP - General 04/21/13 documented as of this encounter
--- OUTSIDE RECORDS SUMMARY | 2025-07-26 14:42 | XMS_ITS | Encounter Summary ---
Author Organization [facility] Address [address] [place] [address] Care Team Providers Care Mattress Packer Name Role Phone Cj Barber DO Primary Care Provider [phone] Encounter Details Date Type Department Care Team (Late Contact Info) Description 03/07/2025 Lab Requisition [facility] - Main Lab 299 [facility] [place] [address] Fidencio Burroughs MD [address] [place] [address] Encounter for other general examination Social History [...] Description 08/09/2025 1:10 PM EDT Office Visit [facility] [address] [place] [address] Shahid Ramos NP [address] [place] [address] documented as of this encounter [...] LAB HEMETOLOGY METHOD 03/07/2025 1:40 PM EDT [facility] RBC 3.70(L) 4.50 - 5.50 M/mcL LAB HEMETOLOGY METHOD 03/07/2025 1:40 PM EDT [facility] Hemoglobin 11.5(L) 13.5 - 17.5 g/dL LAB HEMETOLOGY METHOD 03/07[facility]2025 [facility] Hematocrit 34.9(L) 42.0 - 54.0 % LAB HEMETOLOGY METHOD 03/07/2025 1:40 PM EDT [facility] MCV 93.8 79.0 - 98.0 FL LAB HEMETOLOGY METHOD 03/07/2025 1:40 [facility] MCH 30.9 27.0 - 32.0 pcg LAB HEMETOLOGY METHOD 03/07/2025 1:40 PM [facility] MCHC 33.0 32.0 - 37.0 g/dL LAB HEMETOLOGY METHOD 03/07/2025 1:40 PM EDT [facility] RDW 14.7 11.0 - 15.0 % LAB HEMETOLOGY METHOD 03/07/2025 1:40 PM [facility] Platelets 03/07/2025 1:40 PM EDT [facility] Comment:Not measured. Unable to quantitate due to platelet clumping MPV 9.2 7.0 - 11.0 FL LAB HEMETOLOGY METHOD 03/07/2025 1:40 PM EDT [facility] NRBC 0.0 <1.0 % LAB HEMETOLOGY METHOD 03/07/2025 1:40 PM EDT [facility] NRBC Absolute 0.00 <0.10 K/mcL LAB HEMETOLOGY METHOD 03/07/2025 1:40 PM T [facility] Blood Venous blood specimen / Unknown Venipuncture / Unknown 03/07/2025 5:15 AM EDT 03/07/2025 10:19 AM EDT us Fidencio Burroughs MD LAB BLOOD ORDERABLES Final Res ult [facility] [address] [place] [address], [place] [phone] * (ABNORMAL) Comprehensive metabolic panel (03/07/2025 5:15 [...] 11 LAB CHEMISTRY METHOD 03/07/2025 12:39 PM [facility] Glucose 77 70 - [...] [facility] Comment:Calculation based on the [...] LAB BLOOD ORDERABLES Final Res ult [facility] [address] [place] [address], documented in this encounter Visit Diagnoses Diagnosis Encounter for other general examination documented in this encounter Additional Health Concerns Infection Onset Date Last Indicated Resolved Time ESBL 05/25/2025 05/25/2025 documented as of this encounter Care Teams Mattress Packer Relationship Specialty Start Date End Date Cj Barber DO [address] [place] [phone] PCP - General 04/21/13 documented as of this encounter
--- OUTSIDE RECORDS SUMMARY | 2025-07-26 14:42 | XMS_ITS | Encounter Summary ---
Author Organization [facility] Address [address] [place] [address] Care Team Providers Care Manager Wellness Name Role Phone Cj Barber DO Primary Care Provider [phone] Encounter Details Date Type Department Care Team (Late Contact Info) Description 01/17/2025 Lab Requisition [facility] - Main Lab 299 [facility] [place] [address] Fidencio Burroughs MD [address] [place] [address] Encounter for other general examination Social History [...] Description 08/09/2025 1:10 PM EDT Office Visit [facility] Cardiology Associates [facility] [address] [place] [address] Shahid Ramos NP [address] [place] [address] documented as of this encounter [...] (ABNORMAL) Culture urine (01/17/2025 4:00 AM EST) [facility] Culture, Urine 10,000-49,0 00 CFU/mL Proteus mirabilis(A ) BAUDILIO 01/19/2025 11:30 AM EST [facility] Comment: Edited result: Previously reported [...] - GENERAL ORD ERABLES Final Result [facility] [address] [place] [address], [place] [phone] * (ABNORMAL) Urinalysis with reflex microscopic and culture (01/17/2025 4:00 AM EST) Specific Ney Urine 1.009 1.003 - 1.030 LAB URINALYSIS - AUTOMATED METHOD 01/17/2025 12:04 PM [facility] pH, Urine 7.5 5.0 - 8.0 pH LAB URINALYSIS - AUTOMATED METHOD 01/17/2025 12:04 PM [facility] Leukocytes, Urine Large(A) Negative LAB URINALYSIS - AUTOMATED METHOD 01/17/2025 12:04 PM [facility] Nitrite, Urine Negative Negative LAB URINALYSIS - AUTOMATED METHOD 01/17/2025 12:04 PM [facility] Protein, Urine 30(A) <=Trace mg/dL LAB URINALYSIS - AUTOMATED METHOD 01/17/2025 12:04 PM [facility] Glucose, Urine Negative Negative mg/dL LAB URINALYSIS - AUTOMATED METHOD 01/17/2025 12:04 PM [facility] Ketones, Urine Negative Negative mg/dL LAB URINALYSIS - AUTOMATED METHOD 01/17/2025 12:04 PM [facility] Urobilinogen, Urine 1.0 0.2 - 1.0 mg/dL LAB URINALYSIS - AUTOMATED METHOD 01/17/2025 12:04 PM [facility] Bilirubin, Urine Negative Negative LAB URINALYSIS - AUTOMATED METHOD 01/17/2025 12:04 PM [facility] Blood, Urine Large(A) Negative LAB URINALYSIS - AUTOMATED METHOD 01/17/2025 12:04 PM [facility] RBC, Urine 501.9(H) 0 - 4 /HPF LAB URINALYSIS - AUTOMATED METHOD 01/17/2025 12:04 PM [facility] WBC, Urine 505.7(H) 0 - 4 /HPF LAB URINALYSIS - AUTOMATED METHOD 01/17/2025 12:04 PM [facility] Squamous Epithelial, Urine 4 0 - 60 /LPF LAB URINALYSIS - AUTOMATED METHOD 01/17/2025 12:04 PM [facility] Bacteria, Urine Negative Negative /HPF LAB URINALYSIS - AUTOMATED METHOD 01/17/2025 12:04 PM [facility] Hyaline Casts, Urine 4.8(H) 0 - 3 /LPF LAB URINALYSIS - AUTOMATED METHOD 01/17/2025 12:04 PM [facility] Urine Indwelling urinary catheter / Unknown Non-blood Collection / Unknown 01/17/2025 4:00 AM EST 01/17/2025 10:12 AM EST Fidencio Burroughs MD LAB URINE ORDERABLES Final Res ult [facility] [address] [place] [address], * Mckeon urine culture tube (01/17/2025 4:00 AM EST) Extra Tube Hold for add-ons. 01/17/2025 12:01 PM [facility] Comment:Auto resulted. Urine Indwelling urinary catheter / Unknown Non-blood Collection / Unknown 01/17/2025 4:00 AM EST 01/17/2025 10:12 AM EST Fidencio Burroughs MD LAB URINE ORDERABLES Final Res ult [facility] [address] [place] [address], documented in this encounter Visit Diagnoses Diagnosis Encounter for other general examination documented in this encounter Additional Health Concerns Infection Onset Date Last Indicated Resolved Time ESBL 05/25/2025 05/25/2025 documented as of this encounter Care Teams Manager Wellness Relationship Specialty Start Date End Date Cj Barber DO [address] [place] [phone] PCP - General 04/21/13 documented as of this encounter
--- OUTSIDE RECORDS SUMMARY | 2025-07-26 14:42 | XMS_ITS | Clinical Summary ---
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 He has not had overt [...] Department Care Team Description 05/25/2025 Lab Requisition [facility] - Main Lab 299 [facility] [place] [phone] Hilton Saavedra PA Urinary tract infection, site not specified; Benign prostatic hyperplasia with lower urinary tract symptoms 04/27/2025 Telephone [facility] Cardiology [facility] [address] [place] [address] La Nena Syed MD 04/25/2025 2:10 PM EDT Office Visit [facility] Cardiology [facility] [address] [place] [address] Shahid Ramos NP Preop cardiovascular exam (Primary Dx); PAF (paroxysmal atrial fibrillation) ([facility] V24, [facility] V28); Acute pulmonary embolism, unspecified pulmonary embolism type, unspecified whether acute cor pulmonale present ([facility] V24, [facility] V28); 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; Hypercholesterolemia from Last 3 Months Medical History Medical History Date Comments Multifactorial gait disorder Hypertension Hyperlipidemia Myelopathy ([facility] V24, [facility] V28) Social History Tobacco Use Types Packs/Day [...] EDT Office Visit [facility]iology Associates [facility] [address] [place] [address] [place] [address] Shahid Ramos NP [address] [place] [address] Dr [address] [place] [phone] Health Maintenance Due Date Last Done Comments DTaP,Tdap,and Td Vaccines (1 - Tdap) 1958 Zoster Vaccines (1 of 2) 1989 RSV Immunization Adult Patients (1 - 1-dose 75+ series) 2014 Pneumococcal Vaccine: 50+ Years (2 of 2 - PPSV23) 04/23/2018 04/23/2017 Cholesterol Screening (Lipid Panel) 11/07/2022 Falls Risk Assessment 11/07/2022 Medicare Annual Wellness Visit 11/07/2022 Social Influencers of Health Screening 11/07/2022 Depression Screening 11/24/2024 COVID-19 Vaccine ( season) 2025 11/23/2021, 01/29/2021, 01/08/2021 Influenza Vaccine (#1) 2025 11/16/2024 Hypertension/CHF/CAD Annual [...] Saavedra PA LAB [facility]OLOG[facility] - [facility] Final Result Performing Organization Address City/[facility]/ZIP Co de Phone Number [facility] [address] [place] [address], * ECG 12 lead (04/25/2025 2:02 PM EDT) [facility] Signature Ventricular Rate ECG 65 BPM GEMUSE Atrial Rate 65 BPM GEMUSE P-R Interval 140 ms GEMUSE QRS Duration 84 ms GEMUSE Q-T Interval 374 ms GEMUSE QTc 388 ms GEMUSE P Wave [place] 6 degrees GEMUSE R [place] 10 degrees GEMUSE T [place] 29 degrees GEMUSE ECG Interpretation Normal sinus rhythm Normal ECG When compared with ECG of 30-NOV-2024 11:15, No significant change was found Confirmed by LA NENA SYED ([id number]) on 04/26/2025 5:38:43 PM GEMUSE 04/25/2025 2:02 PM EDT 04/26/2025 5:38 PM EDT Shahid Ramos PEDIATRIC PHYSICIAN ASSISTANT ECG ORDERABLES Final Resul t GEMUSE * (ABNORMAL) Comprehensive metabolic panel (03/07/2025 5:15 AM EDT) Sodium 137 133 - 145 mmol/L LAB CHEMISTRY METHOD 03/07/2025 12:39 PM [facility] Potassium 3.8 3.5 - 5.5 mmol/L LAB CHEMISTRY METHOD 03/07/2025 12:39 PM [facility] Chloride 101 96 - 110 mmol/L LAB CHEMISTRY METHOD 03/07/2025 12:39 PM [facility] CO2 32 21 - 32 mmol/L LAB CHEMISTRY METHOD 03/07/2025 12:39 PM [facility] Anion Gap 4 3 - 11 LAB CHEMISTRY METHOD 03/07/2025 12:39 PM [facility] Glucose 77 70 - 100 mg/dL LAB CHEMISTRY METHOD 03/07/2025 12:39 PM [facility] BUN 14 5 - 25 mg/dL LAB CHEMISTRY METHOD 03/07/2025 12:39 PM [facility] Creatinine 0.51(L) 0.70 - 1.30 mg/dL LAB CHEMISTRY METHOD 03/07/2025 12:39 PM [facility] eGFR 99 >=60 mL/min/1. 73m2 LAB CHEMISTRY METHOD 03/07/2025 12:39 PM [facility] Comment:Calculation based on the Chronic Kidney Disease Epidemiology Collaboration (CKD-EPI) equation refit without adjustment for race. BUN/Creatinine Ratio 27.5 LAB CHEMISTRY METHOD 03/07/2025 12:39 PM [facility] Calcium 8.6 8.5 - 10.5 mg/dL LAB CHEMISTRY METHOD 03/07/2025 12:39 PM [facility] AST (SGOT) 32 10 - 42 unit/L LAB CHEMISTRY METHOD 03/07/2025 12:39 PM [facility] ALT (SGPT) 48 10 - [...] ult [facility] [address] [place] [address], from Last 3 Months or Most Recently Relevant to Health Maintenance Additional Health Concerns Infection Onset Date Last Indicated ESBL 05/25/2025 05/25/2025 Insurance [facility] MEDICARE ADVANTAGE Care Teams Youth Nutritional Monitor Relationship Specialty Start Date End Date Cj Barber DO [address] [place] [phone] PCP - General 04/21/13
--- OUTSIDE RECORDS SUMMARY | 2025-07-26 14:42 | XMS_ITS | Encounter Summary ---
Author Organization [facility] Address [address] [place] [address] Care Team Providers Care Wholesale And Retail Merchant Name Role Phone Cj Barber DO Primary Care Provider [phone] Encounter Details Date Type Department Care Team (Late Contact Info) Description 01/19/2025 Lab Requisition [facility] - Main Lab 299 [facility] [place] [address] Fidencio Burroughs MD [address] [place] [address] Encounter for other general examination Social History [...] Description 08/09/2025 1:10 PM EDT Office Visit [facility] [address] [place] [address] Shahid Ramos NP [address] [place] [address] documented as of this encounter [...] K/mcL LAB HEMETOLOGY METHOD 01/19/2025 12:47 PM [facility] RBC 4.50 4.50 - 5.50 M/mcL LAB HEMETOLOGY METHOD 01/19/2025 12:47 PM [facility] Hemoglobin 13.9 13.5 - 17.5 g/dL LAB HEMETOLOGY METHOD 01/19/2025 12:47 PM [facility] Hematocrit 42.6 42.0 - 54.0 % LAB HEMETOLOGY METHOD 01/19/2025 12:47 PM [facility] MCV 94.0 79.0 - 98.0 FL LAB HEMETOLOGY METHOD 01/19/2025 12:47 PM [facility] MCH 30.7 27.0 - 32.0 pcg LAB HEMETOLOGY METHOD 01/19/2025 12:47 PM [facility] MCHC 32.6 32.0 - 37.0 g/dL LAB HEMETOLOGY METHOD 01/19/2025 12:47 PM [facility] RDW 13.0 11.0 - 15.0 % LAB HEMETOLOGY METHOD 01/19/2025 12:47 PM [facility] Platelets 01/19/2025 12:47 PM [facility] Comment:Not measured. Unable to quantitate due to platelet clumping MPV 11.3(H) 7.0 - 11.0 FL LAB HEMETOLOGY METHOD 01/19/2025 12:47 PM [facility] NRBC 0.0 <1.0 % LAB HEMETOLOGY METHOD 01/19/2025 12:47 PM EST [facility] NRBC Absolute 0.00 <0.10 K/mcL LAB HEMETOLOGY METHOD 01/19/2025 12:47 PM EST [facility] Blood Venous blood specimen / Unknown Venipuncture / Unknown 01/19/2025 5:25 AM EST 01/19/2025 10:00 AM EST us Fidencio Burroughs MD LAB BLOOD ORDERABLES Final Res ult [facility] [address] [place] [address], * (ABNORMAL) Comprehensive metabolic panel (01/19/2025 5:25 AM EST) Sodium 137 133 - 145 mmol/L LAB CHEMISTRY METHOD 01/19/2025 11:35 AM [facility] Potassium 4.2 3.5 - 5.5 mmol/L LAB CHEMISTRY METHOD 01/19/2025 11:35 AM [facility] Chloride 103 96 - 110 mmol/L LAB CHEMISTRY METHOD 01/19/2025 11:35 AM [facility] CO2 24 21 - 32 mmol/L LAB CHEMISTRY METHOD 01/19/2025 11:35 AM [facility] Anion Gap 10 3 - 11 LAB CHEMISTRY METHOD 01/19/2025 11:35 AM [facility] Glucose 84 70 - 100 mg/dL LAB CHEMISTRY METHOD 01/19/2025 11:35 AM [facility] BUN 9 5 - 25 mg/dL LAB CHEMISTRY METHOD 01/19/2025 11:35 AM [facility] Creatinine 0.45(L) 0.70 - 1.30 mg/dL LAB CHEMISTRY METHOD 01/19/2025 11:35 AM [facility] eGFR 103 >=60 mL/min/1. 73m2 LAB CHEMISTRY METHOD 01/19/2025 11:35 AM [facility] Comment:Calculation based on the Chronic Kidney Disease Epidemiology Collaboration (CKD-EPI) equation refit without adjustment for race. BUN/Creatinine Ratio 20.0 LAB CHEMISTRY METHOD 01/19/2025 11:35 AM [facility] Calcium 8.9 8.5 - 10.5 mg/dL LAB CHEMISTRY METHOD 01/19/2025 11:35 AM [facility] AST (SGOT) 36 10 - 42 unit/L LAB CHEMISTRY METHOD 01/19/2025 11:35 AM [facility] ALT (SGPT) 44 10 - 60 unit/L LAB CHEMISTRY METHOD 01/19/2025 11:35 AM [facility] Alkaline Phosphatase 114 42 - 121 unit/L LAB CHEMISTRY METHOD 01/19/2025 11:35 AM [facility] Total Protein 6.2 6.0 - 8.0 g/dL LAB CHEMISTRY METHOD 01/19/2025 11:35 AM [facility] Albumin 3.1(L) 3.2 - 5.0 g/dL LAB CHEMISTRY METHOD 01/19/2025 11:35 AM [facility] Total Bilirubin 0.7 0.0 - 1.4 mg/dL LAB CHEMISTRY METHOD 01/19/2025 11:35 AM [facility] Blood Venous blood specimen / Unknown Venipuncture / Unknown 01/19/2025 5:25 AM EST 01/19/2025 10:00 AM EST us Fidencio Burroughs MD LAB BLOOD ORDERABLES Final Res ult [facility] [address] [place] [address], documented in this encounter Visit Diagnoses Diagnosis Encounter for other general examination documented in this encounter Additional Health Concerns Infection Onset Date Last Indicated Resolved Time ESBL 05/25/2025 05/25/2025 documented as of this encounter Care Teams Wholesale And Retail Merchant Relationship Specialty Start Date End Date Cj Barber DO [address] [place] [phone] PCP - General 04/21/13 documented as of this encounter
--- OUTSIDE RECORDS SUMMARY | 2025-07-26 14:42 | XMS_ITS | Encounter Summary ---
Author Organization [facility] Address [address] [place] [address] Care Team Providers Care Incident Manager Name Role Phone Cj Barber DO Primary Care Provider Encounter Details Date Type Department Care Team (Late Contact Info) Description 01/15/2025 Lab Requisition [facility] - Main Lab 299 [facility] [place] [address] Fidencio Burroughs MD [address] [place] [phone] Encounter for other general examination Social History [...] Description 08/09/2025 1:10 PM EDT Office Visit [facility] [address] [place] [address] Shahid Ramos NP [address] [place] [address] documented as of this encounter [...] AM EST) [facility] WBC 8.0 4.8 - 10.8 K/mcL LAB HEMETOLOGY METHOD 01/15/2025 11:56 AM [facility] RBC 4.50 4.50 - 5.50 M/mcL LAB HEMETOLOGY METHOD 01/15/2025 11:56 AM [facility] Hemoglobin 13.9 13.5 - 17.5 g/dL LAB HEMETOLOGY METHOD 01/15/2025 11:56 AM [facility] Hematocrit 42.3 42.0 - 54.0 % LAB HEMETOLOGY METHOD 01/15/2025 11:56 AM [facility] MCV 95.1 79.0 - 98.0 FL LAB HEMETOLOGY METHOD 01/15/2025 11:56 AM [facility] MCH 31.2 27.0 - 32.0 pcg LAB HEMETOLOGY METHOD 01/15/2025 11:56 AM [facility] MCHC 32.9 32.0 - 37.0 g/dL LAB HEMETOLOGY METHOD 01/15/2025 11:56 AM [facility] RDW 13.2 11.0 - 15.0 % LAB HEMETOLOGY METHOD 01/15/2025 11:56 AM [facility] Platelets 01/15/2025 11:56 AM [facility] Comment:Not measured. Platel ets appear adequate but clumped MPV 11.4(H) 7.0 - 11.0 FL LAB HEMETOLOGY METHOD 01/15/2025 11:56 AM [facility] NRBC 0.0 <1.0 % LAB HEMETOLOGY METHOD 01/15/2025 11:56 AM [facility] NRBC Absolute 0.00 <0.10 K/mcL LAB HEMETOLOGY METHOD 01/15/2025 11:56 AM [facility] Neutrophils Relative 76.9 % LAB HEMETOLOGY METHOD 01/15/2025 11:56 AM [facility] Lymphocytes Relative 11.4 % LAB HEMETOLOGY METHOD 01/15/2025 11:56 AM [facility] Monocytes Relative 10.7 % LAB HEMETOLOGY METHOD 01/15/2025 11:56 AM [facility] Eosinophils Relative 0.6 % LAB HEMETOLOGY METHOD 01/15/2025 11:56 AM [facility] Basophils Relative 0.2 % LAB HEMETOLOGY METHOD 01/15/2025 11:56 AM [facility] Immature Granulocytes Relative 0.2 % LAB HEMETOLOGY METHOD 01/15/2025 11:56 AM [facility] Neutrophils Absolute 6.15 1.50 - 7.00 K/mcL LAB HEMETOLOGY METHOD 01/15/2025 11:56 AM [facility] Lymphocytes Absolute 0.91(L) 1.00 - 5.00 K/mcL LAB HEMETOLOGY METHOD 01/15/2025 11:56 AM [facility] Monocytes Absolute 0.86 0.20 - 1.00 K/mcL LAB HEMETOLOGY METHOD 01/15/2025 11:56 AM [facility] Eosinophils Absolute 0.05 0.00 - 0.50 K/mcL LAB HEMETOLOGY METHOD 01/15/2025 11:56 AM EST [facility] Basophils Absolute 0.02 0.00 - 0.20 K/[facility] LAB HEMETOLOGY METHOD 01/15/2025 11:56 AM EST [facility] Immature Granulocytes Absolute 0.02 0.00 - 0.03 K/[facility] LAB HEMETOLOGY METHOD 01/15/2025 11:56 AM EST [facility] Blood Venous blood specimen / Unknown Venipuncture / Unknown 01/15/2025 6:39 AM EST 01/15/2025 10:03 AM EST us Fidencio Burroughs MD LAB BLOOD ORDERABLES Final Res ult Performing Organization Address [facility]/ZIP Co de Phone Number [facility] [address] [place] [address], [place] [phone] * Magnesium (01/15/2025 6:39 AM EST) Pathologist [facility] Magnesium 2.0 1.9 - 2.6 mg/dL LAB CHEMISTRY METHOD 01/15/2025 11:40 AM EST [facility] Blood Venous blood specimen / Unknown Venipuncture / Unknown 01/15/2025 6:39 AM EST 01/15/2025 10:03 AM EST us Fidencio Burroughs MD LAB BLOOD ORDERABLES Final Res ult [facility] [address] [place] [address], [place] [phone] * (ABNORMAL) Comprehensive metabolic panel (01/15/2025 6:39 AM EST) Pathologist [facility] Sodium 136 133 - 145 mmol/L LAB CHEMISTRY METHOD 01/15/2025 11:40 AM EST [facility] Potassium 3.9 3.5 - 5.5 mmol/L LAB CHEMISTRY METHOD 01/15/2025 11:40 AM [facility] Chloride 103 96 - 110 mmol/L LAB CHEMISTRY METHOD 01/15/2025 11:40 AM [facility] CO2 28 21 - 32 mmol/L LAB CHEMISTRY METHOD 01/15/2025 11:40 AM [facility] Anion Gap 5 3 - 11 LAB CHEMISTRY METHOD 01/15/2025 11:40 AM [facility] Glucose 89 70 - 100 mg/dL LAB CHEMISTRY METHOD 01/15/2025 11:40 AM [facility] BUN 15 5 - 25 mg/dL LAB CHEMISTRY METHOD 01/15/2025 11:40 AM [facility] Creatinine 0.48(L) 0.70 - 1.30 mg/dL LAB CHEMISTRY METHOD 01/15/2025 11:40 AM [facility] eGFR 101 >=60 mL/min/1. 73m2 LAB CHEMISTRY METHOD 01/15/2025 11:40 AM [facility] Comment:Calculation based on the Chronic Kidney Disease Epidemiology Collaboration (CKD-EPI) equation refit without adjustment for race. BUN/Creatinine Ratio 31.3 LAB CHEMISTRY METHOD 01/15/2025 11:40 AM [facility] Calcium 8.8 8.5 - 10.5 mg/dL LAB CHEMISTRY METHOD 01/15/2025 11:40 AM [facility] AST (SGOT) 28 10 - 42 unit/L LAB CHEMISTRY METHOD 01/15/2025 11:40 AM [facility] ALT (SGPT) 31 10 - 60 unit/L LAB CHEMISTRY METHOD 01/15/2025 11:40 AM [facility] Alkaline Phosphatase 104 42 - 121 unit/L LAB CHEMISTRY METHOD 01/15/2025 11:40 AM [facility] Total Protein 5.9(L) 6.0 - 8.0 g/dL LAB CHEMISTRY METHOD 01/15/2025 11:40 AM EST [facility] Albumin 2.9(L) 3.2 - 5.0 g/dL LAB CHEMISTRY METHOD 01/15/2025 11:40 AM EST [facility] Total Bilirubin 1.0 0.0 - 1.4 mg/dL LAB CHEMISTRY METHOD 01/15/2025 11:40 AM EST [facility] Blood Venous blood specimen / Unknown Venipuncture / Unknown 01/15/2025 6:39 AM EST 01/15/2025 10:03 AM EST us Fidencio Burroughs MD LAB BLOOD ORDERABLES Final Res ult [facility] ([facility] [address] [place] [address], documented in this encounter Visit Diagnoses Diagnosis Encounter for other general examination documented in this encounter Additional Health Concerns Infection Onset Date Last Indicated Resolved Time ESBL 05/25/2025 05/25/2025 documented as of this encounter Care Teams Incident Manager Relationship Specialty Start Date End Date Cj Barber DO [address] [place] [phone] PCP - General 04/21/13 documented as of this encounter
== END 2025-07-26 13:58 | disposition home or self-care (01) ==
LOC: HO.HMCSH 13:25
PROVIDERS: PCP Internal Medicine; Visit Provider Internal Medicine
DX: Z00.00 Encounter for general adult medical examination without abnormal findings (principal); G95.20 Unspecified cord compression

== ENCOUNTER → 2025-07-26 13:25 | Outpatient (BNVA) | payer MEDICARE, SELFPAY | PROVIDERS: PCP Internal Medicine; Visit Provider Internal Medicine | DX: Z00.00 Encounter for general adult medical examination without abnormal findings (principal); G95.20 Unspecified cord compression; I10 Essential (primary) hypertension; I48.91 Unspecified atrial fibrillation; M48.02 Spinal stenosis, cervical region | CPT/HCPCS: 96127; 99212 ==

== ENCOUNTER 2025-08-04 09:55 | Outpatient (AMB) | payer MEDICARE, SELFPAY ==
[2025-08-04 10:05] LABS: Prothrombin Time Whole Bld POC 29.4 sec (11.1-13.5); ~PT, ~INR - Anti Coag Clinic 2.5 (0.9-1.1)
--- NOTE | 2025-08-04 10:09 | MHC.OFFVISCO ---
Intake Intake Visit Reasons: Anticoagulation Allergies No Known Allergies (No Known Allergies*) Allergy (Verified 08/04/25 09:59) Medication List - Last Reconciled 08/04/25 by Melina Omer RN aspirin 81 mg PO DAILY atorvastatin 80 mg PO BEDTIME clotrimazole 1% 1 appl topical BID isosorbide mononitrate ER 30 mg PO DAILY metoprolol succinate ER 25 mg PO DAILY nitroglycerin 0.4 mg sublingual Q5M PRN timolol maleate 0.5% 1 drp ophthalmic (eye) DAILY warfarin 5 mg See Protocol PO DAILY 90 days Nursing Note INR: 2.5 in therapeutic range Medications and supplements reviewed *Pt doing well - no hematuria No changes in health, diet, medications, or supplements, Denies any signs and symptoms of bleeding or bruising or clotting. Bleeding, bruising, clotting discussed Nutritional guidance given Dose: 9MG / 6MG X 6 DAYS F/U INR: 2 WEEKS Patient verbalizes understanding of instructions given Anti-Coag Initial Assessment Social Hx Patient Tobacco Use Status: Former Tobacco user alcohol intake: current Alcohol intake frequency: does not drink Cardiovascular Hx: HTN, MA and Arrhythmias Lung Disease HX: DVT/PE Musculoskeletal Hx: Arthritis Blood Disorder Hx: Hyperlipidemia Hx: Prostate Cancer HX: No Psych. Illness/Depression: No Coding Level of Care Code Est Patient Level 1 Diagnoses Current use of anticoagulant therapy Z79.01 Results AMB INR Fingerstick AMB INR Fingerstick 2.5 Last Edit by Melina Omer RN on 08/04/25 10:06 MANUAL ENTRY Assessment & Plan Assessment & Plan (1) Current use of anticoagulant therapy: Code(s): Z79.01 - long term care social worker (current) use of anticoagulants Category: Medical
--- OUTSIDE RECORDS SUMMARY | 2025-08-04 11:50 | XMS_ITS | Encounter Summary ---
Author Organization [facility] Address [address] [place] [address] Care Team Providers Care Electronics Hardware Design Engineer Name Role Phone Cj Barber DO Primary Care Provider [phone] Encounter Details Date Type Department Care Team (Late Contact Info) Description 04/08/2025 Lab Requisition [facility] - Main Lab 299 [facility] [place] [phone] Luis Miguel Caceres MD [address] [facility] [address] [place] [phone] Gross hematuria Social History Tobacco Use Types [...] 08/09/2025 1:10 PM EDT Office Visit [facility] - [facility] [address] [place] [address] Shahid Ramos NP [address] [place] [address] Dr [address] [place] [address] documented as of this encounter Procedures Procedure Name Priority Date/Time Associated Diagnosis Comments CULTURE URINE Routine 04/08/2025 12:00 AM EDT Gross hematuria documented in this encounter Results * Culture urine (04/08/2025 12:00 AM EDT) Culture, Urine >100,000 CFU/mL Mixed bacterial morphotypes present suggestive of possible contamination during collection. Suggest appropriate recollection if clinically indicated. 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
--- OUTSIDE RECORDS SUMMARY | 2025-08-04 11:50 | XMS_ITS | Encounter Summary ---
Author Organization [facility] Address [address] [place] [address] Care Team Providers Care Job Counselor Name Role Phone Cj Barber DO Primary Care Provider [phone] Encounter Details Date Type Department Care Team (Late Contact Info) Description 02/19/2025 Lab Requisition [facility] - Main Lab 299 [facility] [place] [address] Fidencio Burroughs MD [address] [place] [phone] Encounter for other general examination Social History [...] EDT Office Visit [facility] [address] [place] [address] Shahid Ramos NP [address] [place] [address] documented as of this encounter [...] CBC auto differential (02/19/2025 5:42 AM EDT) [facility] WBC 10.5 4.8 - 10.8 K/mcL LAB HEMETOLOGY METHOD 02/19/2025 12:54 PM EDT [facility] RBC 5.10 4.50 - 5.50 M/mcL LAB HEMETOLOGY METHOD 02/19/2025 12:54 PM EDT [facility] Hemoglobin 15.6 13.5 - 17.5 g/dL LAB HEMETOLOGY METHOD 02/19/2025 12:54 PM EDT [facility] Hematocrit 47.5 42.0 - 54.0 % LAB HEMETOLOGY METHOD 02/19/2025 12:54 PM EDT [facility] MCV 92.4 79.0 - 98.0 FL LAB HEMETOLOGY METHOD 02/19/2025 12:54 PM EDT [facility] MCH 30.4 27.0 - 32.0 pcg LAB HEMETOLOGY METHOD 02/19/2025 12:54 PM EDT [facility] MCHC 32.8 32.0 - 37.0 g/dL LAB HEMETOLOGY METHOD 02/19/2025 12:54 PM T [facility] RDW 12.8 11.0 - 15.0 % LAB HEMETOLOGY METHOD 02/19/2025 12:54 PM EDT [facility] Platelets 02/19/2025 12:54 PM EDT [facility] Comment:Not measured. Platel ets appear adequate but clumped Suggest drawing blue top tube with CBC MPV 10.7 7.0 - 11.0 FL LAB HEMETOLOGY METHOD 02/19/2025 12:54 [facility] NRBC 0.0 <1.0 % LAB HEMETOLOGY METHOD 02/19/2025 12:54 PM EDT [facility] NRBC Absolute 0.00 <0.10 K/mcL LAB HEMETOLOGY METHOD 02/19/2025 12:54 PM [facility] Neutrophils Relative 83.5 % LAB HEMETOLOGY METHOD 02/19/2025 12:54 PM [facility] Lymphocytes Relative 10.5 % LAB HEMETOLOGY METHOD 02/19/2025 12:54 PM [facility] Monocytes Relative 5.4 % LAB HEMETOLOGY METHOD 02/19/2025 12:54 PM [facility] Eosinophils Relative 0.0 % LAB HEMETOLOGY METHOD 02/19/2025 12:54 PM [facility] Basophils Relative 0.1 % LAB HEMETOLOGY METHOD 02/19/2025 12:54 PM [facility] Immature Granulocytes Relative 0.5 % LAB HEMETOLOGY METHOD 02/19/2025 12:54 PM [facility] Neutrophils Absolute 8.77(H) 1.50 - 7.00 K/mcL LAB HEMETOLOGY METHOD 02/19/2025 12:54 PM [facility] Lymphocytes Absolute 1.10 1.00 - 5.00 K/mcL LAB HEMETOLOGY METHOD 02/19/2025 12:54 PM [facility] Monocytes Absolute 0.57 0.20 - 1.00 K/mcL LAB HEMETOLOGY METHOD 02/19/2025 12:54 PM EDT [facility] Eosinophils Absolute 0.00 0.00 - 0.50 K/[facility] LAB HEMETOLOGY METHOD 02/19/2025 12:54 PM EDT [facility] Basophils Absolute 0.01 0.00 - 0.20 K/[facility] LAB HEMETOLOGY METHOD 02/19/2025 12:54 PM EDT [facility] Immature Granulocytes Absolute 0.05(H) 0.00 - 0.03 K/[facility] LAB HEMETOLOGY METHOD 02/19/2025 12:54 PM EDT [facility] Blood Venous blood specimen / Unknown Venipuncture / Unknown 02/19/2025 5:42 AM EDT 02/19/2025 9:50 AM EDT Fidencio Burroughs MD LAB BLOOD ORDERABLES Final Res ult Performing Organization Address City/[facility]/ZIP Co de Phone Number [facility] [address] [place] [address], [place] [phone] * Magnesium (02/19/2025 5:42 AM EDT) Magnesium 2.4 1.9 - 2.6 mg/dL LAB CHEMISTRY METHOD 02/19/2025 12:23 PM EDT [facility] Blood Venous blood specimen / Unknown Venipuncture / Unknown 02/19/2025 5:42 AM EDT 02/19/2025 9:50 AM EDT Fidencio Burroughs MD LAB BLOOD ORDERABLES Final Res ult [facility] [address] [place] [address], [place] [phone] * (ABNORMAL) Comprehensive metabolic panel (02/19/2025 5:42 AM EDT) Sodium 131(L) 133 - 145 mmol/L LAB CHEMISTRY METHOD 02/19/2025 12:41 PM [facility] Potassium 4.5 3.5 - 5.5 mmol/L LAB CHEMISTRY METHOD 02/19/2025 12:41 PM [facility] Chloride 94(L) 96 - 110 mmol/L LAB CHEMISTRY METHOD 02/19/2025 12:41 PM [facility] CO2 29 21 - 32 mmol/L LAB CHEMISTRY METHOD 02/19/2025 12:41 PM [facility] Anion Gap 8 3 - 11 LAB CHEMISTRY METHOD 02/19/2025 12:41 PM [facility] Glucose 61(L) 70 - 100 mg/dL LAB CHEMISTRY METHOD 02/19/2025 12:41 PM [facility] BUN 23 5 - 25 mg/dL LAB CHEMISTRY METHOD 02/19/2025 12:41 PM [facility] Creatinine 0.70 0.70 - 1.30 mg/dL LAB CHEMISTRY METHOD 02/19/2025 12:41 PM [facility] eGFR 90 >=60 mL/min/1. 73m2 LAB CHEMISTRY METHOD 02/19/2025 12:41 PM [facility] Comment:Calculation based on the Chronic Kidney Disease Epidemiology Collaboration (CKD-EPI) equation refit without adjustment for race. BUN/Creatinine Ratio 32.9 LAB CHEMISTRY METHOD 02/19/2025 12:41 PM [facility] Calcium 9.1 8.5 - 10.5 mg/dL LAB CHEMISTRY METHOD 02/19/2025 12:41 PM [facility] AST (SGOT) 31 10 - 42 unit/L LAB CHEMISTRY METHOD 02/19/2025 12:41 PM [facility] ALT (SGPT) 90(H) 10 - 60 unit/L LAB CHEMISTRY METHOD 02/19/2025 12:41 PM [facility] Alkaline Phosphatase 127(H) 42 - 121 unit/L LAB CHEMISTRY METHOD 02/19/2025 12:41 PM EDT [facility] Total Protein 6.2 6.0 - 8.0 g/dL LAB CHEMISTRY METHOD 02/19/2025 12:41 PM EDT [facility] Albumin 3.3 3.2 - 5.0 g/dL LAB CHEMISTRY METHOD 02/19/2025 12:41 PM EDT [facility] Total Bilirubin 0.7 0.0 - 1.4 mg/dL LAB CHEMISTRY METHOD 02/19/2025 12:41 PM EDT [facility] Blood Venous blood specimen / Unknown Venipuncture / Unknown 02/19/2025 5:42 AM EDT 02/19/2025 9:50 AM EDT us Fidencio Burroughs MD LAB BLOOD ORDERABLES Final Res ult [facility] [address] [place] [address], [place] [phone] documented in this encounter Visit Diagnoses Diagnosis Encounter for other general examination documented in this encounter Additional Health Concerns 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
--- OUTSIDE RECORDS SUMMARY | 2025-08-04 11:50 | XMS_ITS | Encounter Summary ---
Author Organization [facility] Address [address] [place] [address] Care Team Providers Care Slitting And Shipping Supervisor Name Role Phone jC Barber DO Primary Care Provider [phone] Encounter Details Date Type Department Care Team (Late Contact Info) Description 03/01/2025 Lab Requisition [facility] - Main Lab 299 [facility] [place] [address] Fidencio Burroughs MD [address] [place] [phone] Encounter for other general examination Social History [...] Description 08/09/2025 1:10 PM EDT Office Visit [facility] [address] [place] [address] Shahid Ramos NP [address] [place] [address] documented as of this [...] albicans/du bliniensis( A) 03/07/2025 12:41 PM EDT [facility] Comment: Edited result: Previously reported as Yeast on 03/07/2025 at 1047 EDT. Swab Penile structure / Unknown 03/01/2025 5:22 AM EDT 03/01/2025 10:41 AM EDT us Fidencio Burroughs MD LAB MICROBIOLOGY - GENERAL ORD ERABLES Final Result [facility] [address] [place] [address], [place] [phone] * (ABNORMAL) Culture wound with gram stain (03/01/2025 5:22 AM EDT) Culture, Wound Proteus mirabilis(A) BAUDILIO 03/09/2025 9:56 AM EDT [facility] Comment: The organism value for this result has been updated. These results have been appended to the previously preliminary verified report. This is an edited result. Previous organism was Gram negative bacilli on 03/02/2025 at 1315 EDT. Edited result: Previously reported as Proteus species on 03/03/2025 at 1152 EDT. Culture, Wound Enterococcus faecalis(A) BAUDILIO 03/09/2025 9:56 AM EDT [facility] Comment: The organism value for this result has been updated. These results have been appended to the previously preliminary verified report. This is an edited result. Previous organism was Streptococcus Gamma non hemolytic on 03/06/2025 at 0911 EDT. Culture, Wound Pseudomonas aeruginosa(A) BAUDILIO 03/09/2025 9:56 AM EDT [facility] Comment: The organism value for this result has been updated. These results have been appended to the previously preliminary verified report. This is an edited result. Previous organism was Gram negative bacilli on 03/07/2025 at 1012 EDT. Gram Stain Result Moderate Polymorphonuclear leukocytes 03/09/2025 9:56 AM EDT [facility] Gram Stain Result Few Epithelial cells 03/09/2025 9:56 AM EDT [facility] Gram Stain Result No organisms seen 03/09/2025 9:56 AM EDT [facility] Swab Penile structure / Unknown [...] - GENERAL ORD ERABLES Final Result [facility] [address] [place] [address], documented in this encounter Visit Diagnoses Diagnosis Encounter for other general examination documented in this encounter Additional Health Concerns Infection Onset Date Last Indicated Resolved Time ESBL 05/25/2025 05/25/2025 documented as of this encounter Care Teams Slitting And Shipping Supervisor Relationship Specialty Start Date End Date Cj Barber DO [address] [place] [phone] PCP - General 04/21/13 documented as of this encounter
--- OUTSIDE RECORDS SUMMARY | 2025-08-04 11:50 | XMS_ITS | Encounter Summary ---
Author Organization [facility] Address [address] [place] [address] Care Team Providers Care Dyeing Machine Back Tender Name Role Phone Cj Barber DO Primary Care Provider [phone] Encounter Details Date Type Department Care Team (Late Contact Info) Description 03/01/2025 Lab Requisition [facility] - Main Lab 299 [facility] [place] [address] Fidencio Burroughs MD [address] [place] [phone] Encounter for other general examination Social History [...] Description 08/09/2025 1:10 PM EDT Office Visit [facility] [address] [place] [address] Shahid Ramos NP [address] [place] [address] documented as of this encounter [...] CBC auto differential (03/01/2025 5:29 AM EDT) [facility] WBC 8.8 4.8 - 10.8 K/mcL LAB HEMETOLOGY METHOD 03/01/2025 11:[address] [facility] RBC 3.60(L) 4.50 - 5.50 M/mcL LAB HEMETOLOGY METHOD 03/01/2025 11:[address] [facility] Hemoglobin 11.0(L) 13.5 - 17.5 g/dL LAB HEMETOLOGY METHOD 03/01/2025 11:[address] [facility] Hematocrit 33.0(L) 42.0 - 54.0 % LAB HEMETOLOGY METHOD 03/01/2025 11:[address] [facility] MCV 91.2 79.0 - 98.0 FL LAB HEMETOLOGY METHOD 03/01/2025 11:[address] [facility] MCH 30.4 27.0 - 32.0 pcg LAB HEMETOLOGY METHOD 03/01/2025 11:[address] [facility] MCHC 33.3 32.0 - 37.0 g/dL LAB HEMETOLOGY METHOD 03/01/2025 11:[address] [facility] RDW 13.9 11.0 - 15.0 % LAB HEMETOLOGY METHOD 03/01/2025 11:[address] [facility] Platelets 03/01/2025 11:[address] [facility] Comment:Not measured. Unable to quantitate due to platelet clumping MPV 10.2 7.0 - 11.0 FL LAB HEMETOLOGY METHOD 03/01/2025 11:[address] [facility] NRBC 0.0 <1.0 % LAB HEMETOLOGY METHOD 03/01/2025 11:[address] [facility] NRBC Absolute 0.00 <0.10 K/mcL LAB HEMETOLOGY METHOD 03/01/2025 11:[address] [facility] Neutrophils Relative 76.0 % LAB HEMETOLOGY METHOD 03/01/2025 11:[address] [facility] Lymphocytes Relative 13.4 % LAB HEMETOLOGY METHOD 03/01/2025 11:[address] [facility] Monocytes Relative 9.0 % LAB HEMETOLOGY METHOD 03/01/2025 11:[address] [facility] Eosinophils Relative 1.1 % LAB HEMETOLOGY METHOD 03/01/2025 11:[address] [facility] Basophils Relative 0.2 % LAB HEMETOLOGY METHOD 03/01/2025 11:[address] [facility] Immature Granulocytes Relative 0.3 % LAB HEMETOLOGY METHOD 03/01/2025 11:[address] [facility] Neutrophils Absolute 6.69 1.50 - 7.00 K/mcL LAB HEMETOLOGY METHOD 03/01/2025 11:[address] [facility] Lymphocytes Absolute 1.18 1.00 - 5.00 K/mcL LAB HEMETOLOGY METHOD 03/01/2025 11:[address] [facility] Monocytes Absolute 0.79 0.20 - 1.00 K/mcL LAB HEMETOLOGY METHOD 03/01/2025 11:[address] [facility] Eosinophils Absolute 0.10 0.00 - 0.50 K/mcL LAB HEMETOLOGY METHOD 03/01/2025 11:58 AM EDT [facility] Basophils Absolute 0.02 [...] Res ult [facility] [address] [place] [address], * (ABNORMAL) Comprehensive metabolic panel (03/01/2025 5:29 AM EDT) Sodium 137 133 - 145 mmol/L LAB CHEMISTRY METHOD 03/01/2025 12:[address] [facility] Potassium 4.1 3.5 - 5.5 mmol/L LAB CHEMISTRY METHOD 03/01/2025 12:[address] [facility] Chloride 101 96 - 110 mmol/L LAB CHEMISTRY METHOD 03/01/2025 12:[address] [facility] CO2 30 21 - 32 mmol/L LAB CHEMISTRY METHOD 03/01/2025 12:[address] [facility] Anion Gap 6 3 - 11 LAB CHEMISTRY METHOD 03/01/2025 12:[address] [facility] Glucose 82 70 - 100 mg/dL LAB CHEMISTRY METHOD 03/01/2025 12:[address] [facility] BUN 15 5 - 25 mg/dL LAB CHEMISTRY METHOD 03/01/2025 12:[address] [facility] Creatinine 0.41(L) 0.70 - 1.30 mg/dL LAB CHEMISTRY METHOD 03/01/2025 12:[address] [facility] eGFR 106 >=60 mL/min/1. 73m2 LAB CHEMISTRY METHOD 03/01/2025 12:[address] [facility] Comment:Calculation based on the Chronic Kidney Disease Epidemiology Collaboration (CKD-EPI) equation refit without adjustment for race. BUN/Creatinine Ratio 36.6 LAB CHEMISTRY METHOD 03/01/2025 12:[address] [facility] Calcium 8.7 8.5 - 10.5 mg/dL LAB CHEMISTRY METHOD 03/01/2025 12:[address] [facility] AST (SGOT) 37 10 - 42 unit/L LAB CHEMISTRY METHOD 03/01/2025 12:[address] [facility] ALT (SGPT) 64(H) 10 - 60 unit/L LAB CHEMISTRY METHOD 03/01/2025 12:[address] [facility] Alkaline Phosphatase 105 42 - 121 unit/L LAB CHEMISTRY METHOD 03/01/2025 12:[address] [facility] Total Protein 5.1(L) 6.0 - 8.0 g/dL LAB CHEMISTRY METHOD 03/01/2025 12:[address] [facility] Albumin 2.7(L) 3.2 - 5.0 g/dL LAB CHEMISTRY METHOD 03/01/2025 12:[address] [facility] Total Bilirubin 1.1 0.0 - 1.4 mg/dL LAB CHEMISTRY METHOD 03/01/2025 12:[address] [facility] Blood Venous blood specimen / Unknown Venipuncture / Unknown 03/01/2025 5:29 AM EDT 03/01/2025 9:52 AM EDT us Fidencio Burroughs MD LAB BLOOD ORDERABLES Final Res ult [facility] [address] [place] [address], documented in this encounter Visit Diagnoses Diagnosis Encounter for other general examination documented in this encounter Additional Health Concerns Infection Onset Date Last Indicated Resolved Time ESBL 05/25/2025 05/25/2025 documented as of this encounter Care Teams Dyeing Machine Back Tender Relationship Specialty Start Date End Date Cj Barber DO [address] [place] [phone] PCP - General 04/21/13 documented as of this encounter
--- OUTSIDE RECORDS SUMMARY | 2025-08-04 11:50 | XMS_ITS | Encounter Summary ---
Author Organization [facility] Address [address] [place] [address] Care Team Providers Care Provider Network Analyst Name Role Phone Cj Barber DO Primary Care Provider [phone] Encounter Details Date Type Department Care Team (Late Contact Info) Description 02/24/2025 Lab Requisition [facility] - Main Lab 299 [facility] [place] [address] Fdiencio Burroughs MD [address] [place] [address] Encounter for other general examination Social History [...] EDT Office Visit [facility] [address] [place] [address] Shahid Ramos NP [address] [place] [address] documented as of this encounter [...] K/mcL LAB HEMETOLOGY METHOD 02/24/2025 10:22 AM [facility] RBC 4.20(L) 4.50 - 5.50 M/mcL LAB HEMETOLOGY METHOD 02/24/2025 10:22 AM [facility] Hemoglobin 12.6(L) 13.5 - 17.5 g/dL LAB HEMETOLOGY METHOD 02/24/2025 10:22 AM [facility] Hematocrit 37.1(L) 42.0 - 54.0 % LAB HEMETOLOGY METHOD 02/24/2025 10:22 AM [facility] MCV 89.4 79.0 - 98.0 FL LAB HEMETOLOGY METHOD 02/24/2025 10:22 AM [facility] MCH 30.4 27.0 - 32.0 pcg LAB HEMETOLOGY METHOD 02/24/2025 10:22 AM [facility] MCHC 34.0 32.0 - 37.0 g/dL LAB HEMETOLOGY METHOD 02/24/2025 10:22 AM [facility] RDW 13.3 11.0 - 15.0 % LAB HEMETOLOGY METHOD 02/24/2025 10:22 AM [facility] Platelets 02/24/2025 10:22 AM [facility] Comment:Not measured. Platel ets appear adequate but clumped MPV 10.3 7.0 - 11.0 FL LAB HEMETOLOGY METHOD 02/24/2025 10:22 AM EDT [facility] NRBC 0.0 <1.0 % LAB HEMETOLOGY METHOD 02/24/2025 10:22 AM [facility] NRBC Absolute 0.00 <0.10 K/mcL LAB HEMETOLOGY METHOD 02/24/2025 10:22 AM [facility] Blood Venous blood specimen / Unknown Venipuncture / Unknown 02/24/2025 5:01 AM EDT 02/24/2025 8:10 AM EDT us Fidencio Burroughs MD LAB BLOOD ORDERABLES Final Res ult [facility] [address] [place] [address], [place] [phone] * (ABNORMAL) Comprehensive metabolic panel (02/24/2025 5:01 AM EDT) Sodium 135 133 - 145 mmol/L LAB CHEMISTRY METHOD 02/24/2025 10:11 AM [facility] Potassium 3.9 3.5 - 5.5 mmol/L LAB CHEMISTRY METHOD 02/24/2025 10:11 AM [facility] Chloride 98 96 - 110 mmol/L LAB CHEMISTRY METHOD 02/24/2025 10:11 AM [facility] CO2 29 21 - 32 mmol/L LAB CHEMISTRY METHOD 02/24/2025 10:11 AM [facility] Anion Gap 8 3 - 11 LAB CHEMISTRY METHOD 02/24/2025 10:11 AM [facility] Glucose 73 70 - 100 mg/dL LAB CHEMISTRY METHOD 02/24/2025 10:11 AM [facility] BUN 18 5 - 25 mg/dL LAB CHEMISTRY METHOD 02/24/2025 10:11 AM [facility] Creatinine 0.56(L) 0.70 - 1.30 mg/dL LAB CHEMISTRY METHOD 02/24/2025 10:11 AM [facility] eGFR 97 >=60 mL/min/1. 73m2 LAB CHEMISTRY METHOD 02/24/2025 10:11 AM [facility] Comment:Calculation based on the Chronic Kidney Disease Epidemiology Collaboration (CKD-EPI) equation refit without adjustment for race. BUN/Creatinine Ratio 32.1 LAB CHEMISTRY METHOD 02/24/2025 10:11 AM [facility] Calcium 8.8 8.5 - 10.5 mg/dL LAB CHEMISTRY METHOD 02/24/2025 10:11 AM [facility] AST (SGOT) 33 10 - 42 unit/L LAB CHEMISTRY METHOD 02/24/2025 10:11 AM [facility] ALT (SGPT) 55 10 - 60 unit/L LAB CHEMISTRY METHOD 02/24/2025 10:11 AM [facility] Alkaline Phosphatase 100 42 - 121 unit/L LAB CHEMISTRY METHOD 02/24/2025 10:11 AM [facility] Total Protein 5.4(L) 6.0 - 8.0 g/dL LAB CHEMISTRY METHOD 02/24/2025 10:11 AM [facility] Albumin 2.9(L) 3.2 - 5.0 g/dL LAB CHEMISTRY METHOD 02/24/2025 10:11 AM [facility] Total Bilirubin 0.7 0.0 - 1.4 mg/dL LAB CHEMISTRY METHOD 02/24/2025 10:11 AM [facility] Blood Venous blood specimen / Unknown Venipuncture / Unknown 02/24/2025 5:01 AM EDT 02/24/2025 8:10 AM EDT us Fidenico Burroughs MD LAB BLOOD ORDERABLES Final Res ult [facility] [address] [place] [address], documented in this encounter Visit Diagnoses Diagnosis Encounter for other general examination documented in this encounter Additional Health Concerns Infection Onset Date Last 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
--- OUTSIDE RECORDS SUMMARY | 2025-08-04 11:50 | XMS_ITS | Encounter Summary ---
Author Organization [facility] Address [address] [place] [address] Care Team Providers Care Fashion Marketer Name Role Phone Cj Barber DO Primary Care Provider [phone] Encounter Details Date Type Department Care Team (Late Contact Info) Description 02/25/2025 Lab Requisition [facility] - Main Lab 299 [facility] [address] Fidencio Burroughs MD [address] [place] [phone] Hematuria, unspecified Social History Tobacco Use Types [...] Description 08/09/2025 1:10 PM EDT Office Visit [facility] [address] [place] [address] Shahid Ramos NP [address] [place] [address] documented as of this encounter [...] Final Result [facility] [address] [place] [address], [place] [phone] * (ABNORMAL) Urinalysis with reflex microscopic and culture (02/24/2025 6:00 PM EDT) Pathologist [facility] [place] Urine 1.023 1.003 - 1.030 LAB URINALYSIS - AUTOMATED METHOD 02/25/2025 12:09 PM EDT [facility] pH, Urine 6.0 5.0 - 8.0 pH LAB URINALYSIS - AUTOMATED METHOD 02/25/2025 12:09 PM EDT [facility] Leukocytes, Urine Large(A) Negative LAB URINALYSIS - AUTOMATED METHOD [facility] Nitrite, Urine Negative Negative LAB URINALYSIS - AUTOMATED METHOD 02/25/2025 12:09 PM [facility] Protein, Urine 30(A) <=Trace mg/dL LAB URINALYSIS - AUTOMATED METHOD 02/25/2025 12:09 PM [facility] Glucose, Urine Negative Negative mg/dL LAB URINALYSIS - AUTOMATED METHOD 02/25/2025 12:09 PM [facility] Ketones, Urine Negative Negative mg/dL LAB URINALYSIS - AUTOMATED METHOD 02/25/2025 12:09 PM [facility] Urobilinogen , Urine 1.0 0.2 - 1.0 mg/dL LAB URINALYSIS - AUTOMATED METHOD 02/25/2025 12:09 PM [facility] Bilirubin, Urine Negative Negative LAB URINALYSIS - AUTOMATED METHOD 02/25/2025 12:09 PM [facility] Blood, Urine Large(A) Negative LAB URINALYSIS - AUTOMATED METHOD 02/25/2025 12:09 PM [facility] RBC, Urine 90.1(H) 0 - 4 /HPF LAB URINALYSIS - AUTOMATED METHOD 02/25/2025 12:09 PM [facility] WBC, Urine 251.6(H) 0 - 4 /HPF LAB URINALYSIS - AUTOMATED METHOD 02/25/2025 12:09 PM [facility] Squamous Epithelial, Urine 3 0 - 60 /LPF LAB URINALYSIS - AUTOMATED METHOD 02/25/2025 12:09 PM [facility] Bacteria, Urine Negative Negative /HPF LAB URINALYSIS - AUTOMATED METHOD 02/25/2025 12:09 PM [facility] Hyaline Casts, Urine 2.4 0 - 3 /LPF LAB URINALYSIS - AUTOMATED METHOD 02/25/2025 12:09 PM [facility] Yeast, Urine Present(A) None /HPF LAB URINALYSIS - AUTOMATED METHOD 02/25/2025 12:09 PM EDT [facility] Urine Indwelling urinary catheter / Unknown 02/24/2025 6:00 PM EDT 02/25/2025 11:30 AM EDT us Fidencio Burroughs MD LAB URINE ORDERABLES Final Res ult Performing Organization Address City/[facility]/ZIP Co de Phone Number [facility] [address] [place] [address], [place] [phone] * [place] urine culture tube (02/24/2025 6:00 PM EDT) Extra Tube Hold for add-ons. 02/25/2025 1:01 PM EDT [facility] Comment:Auto resulted. Urine Indwelling urinary catheter / Unknown 02/24/2025 6:00 PM EDT 02/25/2025 11:30 AM EDT us Fidencio Burroughs MD LAB URINE ORDERABLES Final Res ult Performing Organization Address 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
--- OUTSIDE RECORDS SUMMARY | 2025-08-04 11:50 | XMS_ITS | Encounter Summary ---
Author Organization [facility] Address [address] [place] [address] Care Team Providers Care Food Preparation Supervisor Name Role Phone Cj Barber DO Primary Care Provider [phone] Encounter Details Date Type Department Care Team (Late Contact Info) Description 02/26/2025 Lab Requisition [facility] - Main Lab 299 [facility] [place] [address] Fidencio Burroughs MD [address] [place] [address] Encounter for other general examination Social History [...] 08/09/2025 1:10 PM EDT Office Visit [facility] [address] [place] [address] Shahid Ramos NP [address] [place] [address] documented as of this encounter [...] CBC auto differential (02/26/2025 6:35 AM EDT) [facility] WBC 11.9(H) 4.8 - 10.8 K/mcL LAB [...] LAB HEMETOLOGY METHOD 02/26/2025 11:12 AM EDT [facility] Basophils Absolute 0.02 0.00 - 0.20 K/[facility] LAB HEMETOLOGY METHOD 02/26/2025 11:12 AM T [facility] Immature Granulocytes Absolute 0.04(H) 0.00 - 0.03 K/[facility] LAB HEMETOLOGY METHOD 02/26/2025 11:12 AM T [facility] Blood Venous blood specimen / Unknown Venipuncture / Unknown 02/26/2025 6:35 AM EDT 02/26/2025 9:37 AM EDT us Fidencio Burroughs MD LAB BLOOD ORDERABLES Final Res ult [facility] [address] [place] [address], * (ABNORMAL) Comprehensive metabolic panel (02/26/2025 6:35 [...] LAB BLOOD ORDERABLES Final Res ult [facility] [address] [place] [address], documented in this encounter Visit Diagnoses Diagnosis Encounter for other general examination documented in this encounter Additional Health Concerns Infection Onset Date Last Indicated Resolved Time ESBL 05/25/2025 05/25/2025 documented as of this encounter Care Teams Food Preparation Supervisor Relationship Specialty Start Date End Date Cj Barber DO [address] [place] [phone] PCP - General 04/21/13 documented as of this encounter
--- OUTSIDE RECORDS SUMMARY | 2025-08-04 11:51 | XMS_ITS | Encounter Summary ---
Author Organization [facility] Address [address] [place] [address] Care Team Providers Care Director Radio News Name Role Phone Cj Barber DO Primary Care Provider [phone] Encounter Details Date Type Department Care Team (Late Contact Info) Description 01/19/2025 Lab Requisition [facility] - Main Lab 299 [facility] [place] [address] Fidencio Burroughs MD [address] [place] [phone] Encounter for other general examination Social History [...] Description 08/09/2025 1:10 PM EDT Office Visit [facility] [address] [place] [address] Shahid Ramos NP [address] [place] [address] documented as of this encounter [...] K/mcL LAB HEMETOLOGY METHOD 01/19/2025 12:47 PM [facility] RBC 4.50 4.50 - 5.50 M/mcL LAB HEMETOLOGY METHOD 01/19/2025 12:47 PM [facility] Hemoglobin 13.9 13.5 - 17.5 g/dL LAB HEMETOLOGY METHOD 01/19/2025 12:47 PM [facility] Hematocrit 42.6 42.0 - 54.0 % LAB HEMETOLOGY METHOD 01/19/2025 12:47 PM [facility] MCV 94.0 79.0 - 98.0 FL LAB HEMETOLOGY METHOD 01/19/2025 12:47 PM [facility] MCH 30.7 27.0 - 32.0 pcg LAB HEMETOLOGY METHOD 01/19/2025 12:47 PM [facility] MCHC 32.6 32.0 - 37.0 g/dL LAB HEMETOLOGY METHOD 01/19/2025 12:47 PM [facility] RDW 13.0 11.0 - 15.0 % LAB HEMETOLOGY METHOD 01/19/2025 12:47 PM [facility] Platelets 01/19/2025 12:47 PM [facility] Comment:Not measured. Unable to quantitate due to platelet clumping MPV 11.3(H) 7.0 - 11.0 FL LAB HEMETOLOGY METHOD 01/19/2025 12:47 PM [facility] NRBC 0.0 <1.0 % LAB HEMETOLOGY METHOD 01/19/2025 12:47 PM EST [facility] NRBC Absolute 0.00 <0.10 K/mcL LAB HEMETOLOGY METHOD 01/19/2025 12:47 PM EST [facility] Blood Venous blood specimen / Unknown Venipuncture / Unknown 01/19/2025 5:25 AM EST 01/19/2025 10:00 AM EST us Fidencio Burroughs MD LAB BLOOD ORDERABLES Final Res ult [facility] [address] [place] [address], * (ABNORMAL) Comprehensive metabolic panel (01/19/2025 5:25 AM EST) Sodium 137 133 - 145 mmol/L LAB CHEMISTRY METHOD 01/19/2025 11:35 AM [facility] Potassium 4.2 3.5 - 5.5 mmol/L LAB CHEMISTRY METHOD 01/19/2025 11:35 AM [facility] Chloride 103 96 - 110 mmol/L LAB CHEMISTRY METHOD 01/19/2025 11:35 AM [facility] CO2 24 21 - 32 mmol/L LAB CHEMISTRY METHOD 01/19/2025 11:35 AM [facility] Anion Gap 10 3 - 11 LAB CHEMISTRY METHOD 01/19/2025 11:35 AM [facility] Glucose 84 70 - 100 mg/dL LAB CHEMISTRY METHOD 01/19/2025 11:35 AM [facility] BUN 9 5 - 25 mg/dL LAB CHEMISTRY METHOD 01/19/2025 11:35 AM [facility] Creatinine 0.45(L) 0.70 - 1.30 mg/dL LAB CHEMISTRY METHOD 01/19/2025 11:35 AM [facility] eGFR 103 >=60 mL/min/1. 73m2 LAB CHEMISTRY METHOD 01/19/2025 11:35 AM [facility] Comment:Calculation based on the Chronic Kidney Disease Epidemiology Collaboration (CKD-EPI) equation refit without adjustment for race. BUN/Creatinine Ratio 20.0 LAB CHEMISTRY METHOD 01/19/2025 11:35 AM [facility] Calcium 8.9 8.5 - 10.5 mg/dL LAB CHEMISTRY METHOD 01/19/2025 11:35 AM [facility] AST (SGOT) 36 10 - 42 unit/L LAB CHEMISTRY METHOD 01/19/2025 11:35 AM [facility] ALT (SGPT) 44 10 - 60 unit/L LAB CHEMISTRY METHOD 01/19/2025 11:35 AM [facility] Alkaline Phosphatase 114 42 - 121 unit/L LAB CHEMISTRY METHOD 01/19/2025 11:35 AM [facility] Total Protein 6.2 6.0 - 8.0 g/dL LAB CHEMISTRY METHOD 01/19/2025 11:35 AM [facility] Albumin 3.1(L) 3.2 - 5.0 g/dL LAB CHEMISTRY METHOD 01/19/2025 11:35 AM [facility] Total Bilirubin 0.7 0.0 - 1.4 mg/dL LAB CHEMISTRY METHOD 01/19/2025 11:35 AM [facility] Blood Venous blood specimen / Unknown Venipuncture / Unknown 01/19/2025 5:25 AM EST 01/19/2025 10:00 AM EST us Fidencio Burroughs MD LAB BLOOD ORDERABLES Final Res ult [facility] [address] [place] [address], documented in this encounter Visit Diagnoses Diagnosis Encounter for other general examination documented in this encounter Additional Health Concerns Infection Onset Date Last Indicated Resolved Time ESBL 05/25/2025 05/25/2025 documented as of this encounter Care Teams Director Radio News Relationship Specialty Start Date End Date Cj Barber DO [address] [place] [phone] PCP - General 04/21/13 documented as of this encounter
--- OUTSIDE RECORDS SUMMARY | 2025-08-04 11:51 | XMS_ITS | Clinical Summary ---
Author Organization [facility] Address [address] [facility] [place] [address] Phone Care Team Providers Care Plant Taxonomist Name Role Phone Cj Barber DO Primary Care Provider [phone] Allergies No known active allergies Medications aspirin [...] 5 mg tabletIndication s:Coronary artery disease involving [place] coronary artery of [place] heart without angina pectoris Take 1 tablet [...] Overview (04/27/2025): January 2025 - admitted to [facility] with gait imbalance found to have a UTI, paroxysmal atrial fibrillation and provoked acute pulmonary embolism of the left lower lobe; transferred to [facility] and felt to be elevated risk for [...] high-dose atorvastatin.` Coronary artery disease invo lving [place] coronary artery of [place] heart without angina pectoris 06/11/2022 Overview (04/27/2025): [...] 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 He has not had overt [...] Department Care Team Description 05/25/2025 Lab Requisition [facility] - Main Lab [address] [facility] [place] [address] Hilton Saavedra PA Urinary tract infection, site not specified; Benign prostatic hyperplasia with lower urinary tract symptoms from Last 3 Months Medical History Medical History Date Comments Multifactorial gait disorder Hypertension Hyperlipidemia Myelopathy (CMS/HCC V24, CMS/HCC V28) Social History Tobacco Use Types Packs/Day [...] 08/09/2025 1:10 PM EDT Office Visit [facility] Cardiology [facility] [address] [facility] [address] [place] [address] Shahid Ramos NP [address] [place] [address] Dr [address] [place] [address] Health Maintenance Due Date Last Done Comments [...] prostatic hyperplasia with lower urinary tract symptoms COMPREHENSIVE METABOLIC PANEL Routine 03/07/2025 5:15 AM EDT Encounter for other general examination from Last 3 Months or Most Recently Relevant to Health Maintenance Results * (ABNORMAL) Culture urine (05/25/2025 12:00 AM EDT) Culture, Urine >100,000 CFU/mL Proteus mirabilis ESBL(A) BAUDILIO 05/29/2025 8:45 AM EDT [facility] Comment: THIS ORGANISM IS [...] Pseudomonas aeruginosa(A) BAUDILIO 05/29/2025 8:45 AM EDT [facility] Comment: The organism value for this result has been updated. These results have been appended to the previously preliminary verified report. This is an edited result. Previous organism was Gram negative bacilli on 05/27/2025 at 1022 EDT. Urine Urine specimen obtained by clean catch procedure / Unknown 05/25/2025 05/25/2025 5:52 PM EDT Narrative [facility] - 05/29/2025 8:45 AM EDT [...] Susceptible Pseudomonas aeruginosa Cefepime DISK DIFFUSION Susceptible [facility]Y LAB MICROBIOLOGY - GENERAL ORDE GUILLAUME Final Result [facility] [address] [place] [address], * (ABNORMAL) Comprehensive metabolic panel (03/07/2025 5:15 AM EDT) Sodium 137 133 - 145 mmol/L LAB CHEMISTRY METHOD 03/07/2025 12:[address] [facility] Potassium 3.8 3.5 - 5.5 mmol/L LAB CHEMISTRY METHOD 03/07/2025 12:[address] [facility] Chloride 101 96 - 110 mmol/L LAB CHEMISTRY METHOD 03/07/2025 12:[address] [facility] CO2 32 21 - 32 mmol/L LAB CHEMISTRY METHOD 03/07/2025 12:[address] [facility] Anion Gap 4 3 - 11 LAB CHEMISTRY METHOD 03/07/2025 12:[address] [facility] Glucose 77 70 - 100 mg/dL LAB CHEMISTRY METHOD 03/07/2025 12:[address] [facility] BUN 14 5 - 25 mg/dL LAB CHEMISTRY METHOD 03/07/2025 12:[address] [facility] Creatinine 0.51(L) 0.70 - 1.30 mg/dL LAB CHEMISTRY METHOD 03/07/2025 12:[address] [facility] eGFR 99 >=60 mL/min/1. 73m2 LAB CHEMISTRY METHOD 03/07/2025 12:[address] [facility] Comment:Calculation based on the Chronic Kidney Disease Epidemiology Collaboration (CKD-EPI) equation refit without adjustment for race. BUN/Creatinine Ratio 27.5 LAB CHEMISTRY METHOD 03/07/2025 12:[address] [facility] Calcium 8.6 8.5 - 10.5 mg/dL LAB CHEMISTRY METHOD 03/07/2025 12:[address] [facility] AST (SGOT) 32 10 - 42 unit/L LAB CHEMISTRY METHOD 03/07/2025 12:39 PM EDT [facility] ALT (SGPT) 48 10 - 60 unit/L LAB CHEMISTRY METHOD 03/07/2025 12:39 PM EDT [facility] Alkaline Phosphatase 116 42 - 121 unit/L LAB CHEMISTRY METHOD 03/07/2025 12:39 PM EDT [facility] Total Protein 5.3(L) 6.0 - 8.0 g/dL LAB CHEMISTRY METHOD 03/07/2025 12:39 PM EDT [facility] Albumin 2.8(L) 3.2 - 5.0 g/dL LAB CHEMISTRY METHOD 03/07/2025 12:39 PM EDT [facility] Total Bilirubin 1.0 0.0 - 1.4 mg/dL LAB CHEMISTRY METHOD 03/07/2025 12:39 PM EDT [facility] Blood Venous blood specimen / Unknown Venipuncture / Unknown 03/07/2025 5:15 AM EDT 03/07/2025 10:19 AM EDT us Fidencio Burroughs MD LAB BLOOD ORDERABLES Final Res ult [facility] [address] [place] [address], from Last 3 Months or Most Recently Relevant to Health Maintenance Additional Health Concerns Infection Onset Date Last Indicated ESBL 05/25/2025 05/25/2025 Insurance [employer] Care Teams Plant Taxonomist Relationship Specialty Start Date End Date Cj Barber DO [address] [place] [phone] PCP - General 04/21/13
--- OUTSIDE RECORDS SUMMARY | 2025-08-04 11:51 | XMS_ITS | Encounter Summary ---
Author Organization [facility] Address [address] [place] [address] Care Team Providers Care Braze Operator Name Role Phone Cj Barber DO Primary Care Provider [phone] Encounter Details Date Type Department Care Team (Late st Contact Info) Description 05/25/2025 Lab Requisition [facility] - Main Lab [address] [facility] [place] [address] Hilton Saavedra, ALY [address] [place] [address] Urinary tract infection, site not specified; Benign [...] Description 08/09/2025 1:10 PM EDT Office Visit [facility] [address] [place] [address] Shahid Ramos NP [address] [place] [address] Dr [address] [place] [phone] documented as of this encounter Procedures Procedure Name Priority Date/Time Associated Diagnosis Comments CULTURE URINE Routine 05/25/2025 12:00 AM EDT Urinary tract infection, site not specified Benign prostatic hyperplasia with lower urinary tract symptoms documented in this encounter Results * (ABNORMAL) Culture urine (05/25/2025 12:00 AM EDT) Culture, Urine >100,000 CFU/mL Proteus mirabilis ESBL(A) BAUDILIO 05/29/2025 8:45 AM EDT [facility] Comment: THIS ORGANISM [...] Pseudomonas aeruginosa(A) BAUDILIO 05/29/2025 8:45 AM EDT [facility] Comment: The organism value for this result has been updated. These results have been appended to the previously preliminary verified report. This is an edited result. Previous organism was Gram negative bacilli on 05/27/2025 at 1022 EDT. Urine Urine specimen obtained by clean catch procedure / Unknown 05/25/2025 05/25/2025 5:52 PM EDT Narrative [facility] - 05/29/2025 8:45 [...] 0.25 ug/ml: Susceptible Proteus mirabilis ESBL Meropenem BAUIDLIO 1 ug/ml: Susceptible Proteus mirabilis ESBL Amikacin [...] Susceptible Pseudomonas aeruginosa Cefepime DISK DIFFUSION Susceptible [facility] LAB MICROBIOLOGY - GENERAL SHMUELE GUILLAUME Final Result [facility] [address] [place] [address], documented in this encounter Visit Diagnoses Diagnosis Urinary tract infection, site not specified Benign prostatic hyperplasia with lower urinary tract symptoms documented in this encounter Additional Health Concerns Infection Onset Date Last Indicated Resolved Time ESBL 05/25/2025 05/25/2025 documented as of this encounter Care Teams Braze Operator Relationship Specialty Start Date End Date Cj Barber DO [address] [place] [phone] PCP - General 04/21/13 documented as of this encounter
--- OUTSIDE RECORDS SUMMARY | 2025-08-04 11:51 | XMS_ITS | Encounter Summary ---
Author Organization [facility] Address [address] [place] [address] Care Team Providers Care Cultural Historian Name Role Phone Cj Barber DO Primary Care Provider [phone] Encounter Details Date Type Department Care Team (Late Contact Info) Description 12/17/2024 Lab Requisition [facility] - Main Lab 299 [facility] [place] [phone] Horace Gu MD [address] [facility] [address] [place] [phone] Urinary tract infection, site not specified Social [...] Description 08/09/2025 1:10 PM EDT Office Visit [facility] - [facility] Center [address] [place] [address] Shahid Ramos NP [address] [place] [address] Dr [address] [place] [address] documented as of this encounter Procedures Procedure Name Priority Date/Time Associated Diagnosis Comments CULTURE URINE Routine 12/17/2024 12:00 AM EST Urinary tract infection, site not specified documented in this encounter Results * (ABNORMAL) Culture urine (12/17/2024 12:00 AM EST) Culture, Urine >100,000 CFU/mL Proteus mirabilis(A ) BAUDILIO 12/19/2024 7:46 AM EST [facility] Comment: Edited [...] MICROBIOLOGY - GENERAL TRISTEN GALAVIZ Final Result [facility] [address] [place] [address], [place] [phone] documented in this encounter Visit Diagnoses Diagnosis Urinary tract infection, site not specified documented in this encounter Additional Health Concerns Infection Onset Date Last Indicated Resolved Time ESBL 05/25/2025 05/25/2025 documented as of this encounter Care Teams Cultural Historian Relationship Specialty Start Date End Date Cj Barber DO [address] [place] [phone] PCP - General 04/21/13 documented as of this encounter
--- OUTSIDE RECORDS SUMMARY | 2025-08-04 11:51 | XMS_ITS | Encounter Summary ---
Author Organization [facility] Address [address] [place] [address] Care Team Providers Care Last Waxer Name Role Phone Cj Barber DO Primary Care Provider [phone] Encounter Details Date Type Department Care Team (Late Contact Info) Description 01/15/2025 Lab Requisition [facility] - Main Lab [address] [facility] [place] [address] Fidencio Burroughs MD [address] [place] [phone] Encounter for other general examination Social History [...] Description 08/09/2025 1:10 PM EDT Office Visit [facility] [address] [place] [address] Shahid Ramos NP [address] [place] [address] documented as of this encounter [...] CBC auto differential (01/15/2025 6:39 AM EST) [facility] WBC 8.0 4.8 - 10.8 K/mcL LAB HEMETOLOGY METHOD 01/15/2025 11:56 AM [facility] RBC 4.50 4.50 - 5.50 M/mcL LAB HEMETOLOGY METHOD 01/15/2025 11:56 AM [facility] Hemoglobin 13.9 13.5 - 17.5 g/dL LAB HEMETOLOGY METHOD 01/15/2025 11:56 AM [facility] Hematocrit 42.3 42.0 - 54.0 [...] [facility] Neutrophils Absolute 6.15 1.50 - 7.00 K/mcL LAB HEMETOLOGY METHOD 01/15/2025 11:56 AM [facility] Lymphocytes Absolute 0.91(L) 1.00 - 5.00 K/mcL LAB HEMETOLOGY METHOD 01/15/2025 11:56 AM [facility] Monocytes Absolute 0.86 0.20 - 1.00 K/mcL LAB HEMETOLOGY METHOD 01/15/2025 11:56 AM [facility] Eosinophils Absolute 0.05 0.00 - 0.50 K/mcL LAB HEMETOLOGY METHOD 01/15/2025 11:56 AM EST [facility] Basophils Absolute 0.02 0.00 - 0.20 K/[facility] LAB HEMETOLOGY METHOD 01/15/2025 11:56 AM EST [facility] Immature Granulocytes Absolute 0.02 0.00 - 0.03 K/[facility] LAB HEMETOLOGY METHOD 01/15/2025 11:56 AM EST [facility] Blood Venous blood specimen / Unknown Venipuncture / Unknown 01/15/2025 6:39 AM EST 01/15/2025 10:03 AM EST us Fidencio Bruroughs MD LAB BLOOD ORDERABLES Final Res ult Performing Organization Address [facility]/ZIP Co de Phone Number [facility] [address] [place] [address], [place] [phone] * Magnesium (01/15/2025 6:39 AM EST) Pathologist [facility] Magnesium 2.0 1.9 - 2.6 mg/dL LAB CHEMISTRY METHOD 01/15/2025 11:40 AM EST [facility] Blood Venous blood specimen / Unknown Venipuncture / Unknown 01/15/2025 6:39 AM EST 01/15/2025 10:03 AM EST us Fidencio Burroughs MD LAB BLOOD ORDERABLES Final Res ult [facility] [address] [place] [address], [place] [phone] * (ABNORMAL) Comprehensive metabolic panel (01/15/2025 6:39 AM EST) Pathologist [facility] Sodium 136 133 - 145 mmol/L LAB CHEMISTRY METHOD 01/15/2025 11:40 AM EST [facility] Potassium 3.9 3.5 - 5.5 mmol/L LAB CHEMISTRY METHOD 01/15/2025 11:40 AM [facility] Chloride 103 96 - 110 mmol/L LAB CHEMISTRY METHOD 01/15/2025 11:40 AM [facility] CO2 28 21 - 32 mmol/L LAB CHEMISTRY METHOD 01/15/2025 11:40 AM [facility] Anion Gap 5 3 - 11 LAB CHEMISTRY METHOD 01/15/2025 11:40 AM [facility] Glucose 89 70 - 100 mg/dL LAB CHEMISTRY METHOD 01/15/2025 11:40 AM [facility] BUN 15 5 - 25 mg/dL LAB CHEMISTRY METHOD 01/15/2025 11:40 AM [facility] Creatinine 0.48(L) 0.70 - 1.30 mg/dL LAB CHEMISTRY METHOD 01/15/2025 11:40 AM [facility] eGFR 101 >=60 mL/min/1. 73m2 LAB CHEMISTRY METHOD 01/15/2025 11:40 AM [facility] Comment:Calculation based on the Chronic Kidney Disease Epidemiology Collaboration (CKD-EPI) equation refit without adjustment for race. BUN/Creatinine Ratio 31.3 LAB CHEMISTRY METHOD 01/15/2025 11:40 AM [facility] Calcium 8.8 8.5 - 10.5 mg/dL LAB CHEMISTRY METHOD 01/15/2025 11:40 AM [facility] AST (SGOT) 28 10 - 42 unit/L LAB CHEMISTRY METHOD 01/15/2025 11:40 AM [facility] ALT (SGPT) 31 10 - 60 unit/L LAB CHEMISTRY METHOD 01/15/2025 11:40 AM [facility] Alkaline Phosphatase 104 42 - 121 unit/L LAB CHEMISTRY METHOD 01/15/2025 11:40 AM [facility] Total Protein 5.9(L) 6.0 - 8.0 g/dL LAB CHEMISTRY METHOD 01/15/2025 11:40 AM EST [facility] Albumin 2.9(L) 3.2 - 5.0 g/dL LAB CHEMISTRY METHOD 01/15/2025 11:40 AM EST [facility] Total Bilirubin 1.0 0.0 - 1.4 mg/dL LAB CHEMISTRY METHOD 01/15/2025 11:40 AM EST [facility] Blood Venous blood specimen / Unknown Venipuncture / Unknown 01/15/2025 6:39 AM EST 01/15/2025 10:03 AM EST us Fidencio Burroughs MD LAB BLOOD ORDERABLES Final Res ult [facility] [address] [place] [address], documented in this encounter Visit Diagnoses Diagnosis Encounter for other general examination documented in this encounter Additional Health Concerns Infection Onset Date Last Indicated Resolved Time ESBL 05/25/2025 05/25/2025 documented as of this encounter Care Teams Last Waxer Relationship Specialty Start Date End Date Cj Barber DO [address] [place] [phone] PCP - General 04/21/13 documented as of this encounter
--- OUTSIDE RECORDS SUMMARY | 2025-08-04 11:51 | XMS_ITS | Encounter Summary ---
Author Organization [facility] Address [address] [place] [address] Care Team Providers Care Chute Greaser Name Role Phone Cj Barber DO Primary Care Provider [phone] Encounter Details Date Type Department Care Team (Late Contact Info) Description 03/07/2025 Lab Requisition [facility] - Main Lab 299 [facility] [place] [address] Fidencio Burroughs MD [address] [place] [phone] Encounter for other general examination Social History [...] Description 08/09/2025 1:10 PM EDT Office Visit [facility] [address] [place] [address] Shahid Ramos NP [address] [place] [address] documented as of this encounter [...] LAB HEMETOLOGY METHOD 03/07/2025 1:40 PM EDT [facility] RBC 3.70(L) 4.50 - 5.50 M/mcL LAB HEMETOLOGY METHOD 03/07/2025 1:40 PM EDT [facility] Hemoglobin 11.5(L) 13.5 - 17.5 g/dL LAB HEMETOLOGY METHOD 03/07[facility]2025 1[facility] Hematocrit 34.9(L) 42.0 - 54.0 % LAB HEMETOLOGY METHOD 03/07/2025 1:40 PM EDT [facility] MCV 93.8 79.0 - 98.0 FL LAB HEMETOLOGY METHOD 03/07/2025 1:40 PM [facility] MCH 30.9 27.0 - 32.0 pcg LAB HEMETOLOGY METHOD 03/07/2025 1:40 PM [facility] MCHC 33.0 32.0 - 37.0 g/dL LAB HEMETOLOGY METHOD 03/07/2025 1:40 PM EDT [facility] RDW 14.7 11.0 - 15.0 % LAB HEMETOLOGY METHOD 03/07/2025 1:40 PM [facility] Platelets 03/07/2025 1:40 PM EDT [facility] Comment:Not measured. Unable to quantitate due to platelet clumping MPV 9.2 7.0 - 11.0 FL LAB HEMETOLOGY METHOD 03/07/2025 1:40 PM EDT [facility] NRBC 0.0 <1.0 % LAB HEMETOLOGY METHOD 03/07/2025 1:40 PM EDT [facility] NRBC Absolute 0.00 <0.10 K/mcL LAB HEMETOLOGY METHOD 03/07/2025 1:40 PM T [facility] Blood Venous blood specimen / Unknown Venipuncture / Unknown 03/07/2025 5:15 AM EDT 03/07/2025 10:19 AM EDT us Fidencio Burroughs MD LAB BLOOD ORDERABLES Final Res ult [facility] [address] [place] [address], [place] [phone] * (ABNORMAL) Comprehensive metabolic panel (03/07/2025 5:15 AM EDT) Sodium 137 133 - 145 mmol/L LAB CHEMISTRY METHOD 03/07/2025 12:39 PM [facility] Potassium 3.8 3.5 - 5.5 mmol/L LAB CHEMISTRY METHOD 03/07/2025 12:39 PM [facility] Chloride 101 96 - 110 mmol/L LAB CHEMISTRY METHOD 03/07/2025 12:39 PM [facility] CO2 32 21 - 32 mmol/L LAB CHEMISTRY METHOD 03/07/2025 12:39 PM [facility] Anion Gap 4 3 - 11 LAB CHEMISTRY METHOD 03/07/2025 12:39 PM [facility] Glucose 77 70 - 100 mg/dL LAB CHEMISTRY METHOD 03/07/2025 12:39 PM [facility] BUN 14 5 - 25 mg/dL LAB CHEMISTRY METHOD 03/07/2025 12:39 PM [facility] Creatinine 0.51(L) 0.70 - 1.30 mg/dL LAB CHEMISTRY METHOD 03/07/2025 12:39 PM [facility] eGFR 99 >=60 mL/min/1. 73m2 LAB CHEMISTRY METHOD 03/07/2025 12:39 PM [facility] Comment:Calculation based on the Chronic Kidney Disease Epidemiology Collaboration (CKD-EPI) equation refit without adjustment for race. BUN/Creatinine Ratio 27.5 LAB CHEMISTRY METHOD 03/07/2025 12:39 PM [facility] Calcium 8.6 8.5 - 10.5 mg/dL LAB CHEMISTRY METHOD 03/07/2025 12:39 PM [facility] AST (SGOT) 32 10 - 42 unit/L LAB CHEMISTRY METHOD 03/07/2025 12:39 PM [facility] ALT (SGPT) 48 10 - 60 unit/L LAB CHEMISTRY METHOD 03/07/2025 12:39 PM [facility] Alkaline Phosphatase 116 42 - 121 unit/L LAB CHEMISTRY METHOD 03/07/2025 12:39 PM [facility] Total Protein 5.3(L) 6.0 - 8.0 g/dL LAB CHEMISTRY METHOD 03/07/2025 12:39 PM [facility] Albumin 2.8(L) 3.2 - 5.0 g/dL LAB CHEMISTRY METHOD 03/07/2025 12:39 PM [facility] Total Bilirubin 1.0 0.0 - 1.4 mg/dL LAB CHEMISTRY METHOD 03/07/2025 12:39 PM [facility] Blood Venous blood specimen / Unknown Venipuncture / Unknown 03/07/2025 5:15 AM EDT 03/07/2025 10:19 AM EDT us Fidencio Burroughs MD LAB BLOOD ORDERABLES Final Res ult [facility] [address] [place] [address], documented in this encounter Visit Diagnoses Diagnosis Encounter for other general examination documented in this encounter Additional Health Concerns Infection Onset Date Last Indicated Resolved Time ESBL 05/25/2025 05/25/2025 documented as of this encounter Care Teams Chute Greaser Relationship Specialty Start Date End Date Cj Barber DO [address] [place] [phone] PCP - General 04/21/13 documented as of this encounter
--- OUTSIDE RECORDS SUMMARY | 2025-08-04 11:51 | XMS_ITS | Encounter Summary ---
Author Organization [facility] Address [address] [place] [address] Care Team Providers Care Nurses Medical Assistants Phlebotomists Name Role Phone Cj Barber DO Primary Care Provider [phone] Encounter Details Date Type Department Care Team (Late Contact Info) Description 01/25/2025 Lab Requisition [facility] - Main Lab [address] [facility] [place] [address] Fidencio Burroughs MD [address] [place] [id number] Encounter for other general examination Social History [...] Description 08/09/2025 1:10 PM EDT Office Visit [facility] [address] [place] [address] Shahid Ramos NP [address] [place] [address] documented as of this encounter [...] K/mcL LAB HEMETOLOGY METHOD 01/25/2025 11:36 AM [facility] RBC 4.50 4.50 - 5.50 M/mcL LAB HEMETOLOGY METHOD 01/25/2025 11:36 AM [facility] Hemoglobin 13.7 13.5 - 17.5 g/dL LAB HEMETOLOGY METHOD 01/25/2025 11:36 AM [facility] Hematocrit 41.6(L) 42.0 - 54.0 % LAB HEMETOLOGY METHOD 01/25/2025 11:36 AM [facility] MCV 93.3 79.0 - 98.0 FL LAB HEMETOLOGY METHOD 01/25/2025 11:36 AM [facility] MCH 30.7 27.0 - 32.0 pcg LAB HEMETOLOGY METHOD 01/25/2025 11:36 AM [facility] MCHC 32.9 32.0 - 37.0 g/dL LAB HEMETOLOGY METHOD 01/25/2025 11:36 AM [facility] RDW 12.9 11.0 - 15.0 % LAB HEMETOLOGY METHOD 01/25/2025 11:36 AM [facility] Platelets 01/25/2025 11:36 AM [facility] Comment:Not measured. Platel ets appear adequate but clumped MPV 11.1(H) 7.0 - 11.0 FL LAB HEMETOLOGY METHOD 01/25/2025 11:36 AM [facility] NRBC 0.0 <1.0 % LAB HEMETOLOGY METHOD 01/25/2025 11:36 AM EST [facility] NRBC Absolute 0.00 <0.10 K/mcL LAB HEMETOLOGY METHOD 01/25/2025 11:36 AM EST [facility] Blood Venous blood specimen / Unknown Venipuncture / Unknown 01/25/2025 7:02 AM EST 01/25/2025 10:36 AM EST us Fidencio Burroughs MD LAB BLOOD ORDERABLES Final Res ult [facility] [address] [place] [address], * (ABNORMAL) Comprehensive metabolic panel (01/25/2025 7:02 AM EST) Sodium 137 133 - 145 mmol/L LAB CHEMISTRY METHOD 01/25/2025 11:50 AM [facility] Potassium 3.9 3.5 - 5.5 mmol/L LAB CHEMISTRY METHOD 01/25/2025 11:50 AM [facility] Chloride 101 96 - 110 mmol/L LAB CHEMISTRY METHOD 01/25/2025 11:50 AM [facility] CO2 27 21 - 32 mmol/L LAB CHEMISTRY METHOD 01/25/2025 11:50 AM [facility] Anion Gap 9 3 - 11 LAB CHEMISTRY METHOD 01/25/2025 11:50 AM [facility] Glucose 87 70 - 100 mg/dL LAB CHEMISTRY METHOD 01/25/2025 11:50 AM [facility] BUN 10 5 - 25 mg/dL LAB CHEMISTRY METHOD 01/25/2025 11:50 AM [facility] Creatinine 0.50(L) 0.70 - 1.30 mg/dL LAB CHEMISTRY METHOD 01/25/2025 11:50 AM [facility] eGFR 100 >=60 mL/min/1. 73m2 LAB CHEMISTRY METHOD 01/25/2025 11:50 AM [facility] Comment:Calculation based on the Chronic Kidney Disease Epidemiology Collaboration (CKD-EPI) equation refit without adjustment for race. BUN/Creatinine Ratio 20.0 LAB CHEMISTRY METHOD 01/25/2025 11:50 AM [facility] Calcium 9.1 8.5 - 10.5 mg/dL LAB CHEMISTRY METHOD 01/25/2025 11:50 AM [facility] AST (SGOT) 28 10 - 42 unit/L LAB CHEMISTRY METHOD 01/25/2025 11:50 AM [facility] ALT (SGPT) 38 10 - 60 unit/L LAB CHEMISTRY METHOD 01/25/2025 11:50 AM [facility] Alkaline Phosphatase 127(H) 42 - 121 unit/L LAB CHEMISTRY METHOD 01/25/2025 11:50 AM [facility] Total Protein 6.1 6.0 - 8.0 g/dL LAB CHEMISTRY METHOD 01/25/2025 11:50 AM [facility] Albumin 3.1(L) 3.2 - 5.0 g/dL LAB CHEMISTRY METHOD 01/25/2025 11:50 AM [facility] Total Bilirubin 0.7 0.0 - 1.4 mg/dL LAB CHEMISTRY METHOD 01/25/2025 11:50 AM [facility] Blood Venous blood specimen / Unknown Venipuncture / Unknown 01/25/2025 7:02 AM EST 01/25/2025 10:36 AM EST us Fidencio Burroughs MD LAB BLOOD ORDERABLES Final Res ult [facility] [address] [place] [address], documented in this encounter Visit Diagnoses Diagnosis Encounter for other general examination documented in this encounter Additional Health Concerns Infection Onset Date Last Indicated Resolved Time ESBL 05/25/2025 05/25/2025 documented as of this encounter Care Teams Nurses Medical Assistants Phlebotomists Relationship Specialty Start Date End Date Cj Barber DO [address] [place] [phone] PCP - General 04/21/13 documented as of this encounter
--- OUTSIDE RECORDS SUMMARY | 2025-08-04 11:51 | XMS_ITS | Encounter Summary ---
Author Organization [facility] Address [address] [place] [address] Care Team Providers Care Purse Framer Name Role Phone Cj Barber DO Primary Care Provider [phone] Encounter Details Date Type Department Care Team (Late Contact Info) Description 01/17/[address] [facility] - Main Lab 299 [facility] [place] [address] Fidencio Burroughs MD [address] [place] [phone] Encounter for other general examination Social History [...] Description 08/09/2025 1:10 PM EDT Office Visit [facility] [address] [place] [address] Shahid Ramos NP [address] [place] [address] documented as of this encounter [...] (ABNORMAL) Culture urine (01/17/2025 4:00 AM EST) [facility] Culture, Urine 10,000-49,0 00 CFU/mL Proteus mirabilis(A ) BAUDILIO 01/19/2025 11:30 AM EST [facility] Comment: Edited result: [...] Proteus mirabilis Trimethoprim/Sulfamethoxazole BAUDILIO <=20 ug/ml: Susceptible Fdiencio Burroughs MD LAB MICROBIOLOGY - GENERAL ORD ERABLES Final Result [facility] [address] [place] [address], [place] [phone] * (ABNORMAL) Urinalysis with reflex microscopic and culture (01/17/2025 4:00 AM EST) Specific [place] Urine 1.009 1.003 - 1.030 LAB URINALYSIS - AUTOMATED METHOD 01/17/2025 12:04 PM [facility] pH, Urine 7.5 5.0 - 8.0 pH LAB URINALYSIS - AUTOMATED METHOD 01/17/2025 12:04 PM [facility] Leukocytes, Urine Large(A) Negative LAB URINALYSIS - AUTOMATED METHOD 01/17/2025 12:04 PM [facility] Nitrite, Urine Negative Negative LAB URINALYSIS - AUTOMATED METHOD 01/17/2025 12:04 PM [facility] Protein, Urine 30(A) <=Trace mg/dL LAB URINALYSIS - AUTOMATED METHOD 01/17/2025 12:04 PM [facility] Glucose, Urine Negative Negative mg/dL LAB URINALYSIS - AUTOMATED METHOD 01/17/2025 12:04 PM [facility] Ketones, Urine Negative Negative mg/dL LAB URINALYSIS - AUTOMATED METHOD 01/17/2025 12:04 PM [facility] Urobilinogen, Urine 1.0 0.2 - 1.0 mg/dL LAB URINALYSIS - AUTOMATED METHOD 01/17/2025 12:04 PM [facility] Bilirubin, Urine Negative Negative LAB URINALYSIS - AUTOMATED METHOD 01/17/2025 12:04 PM [facility] Blood, Urine Large(A) Negative LAB URINALYSIS - AUTOMATED METHOD 01/17/2025 12:04 PM [facility] RBC, Urine 501.9(H) 0 - 4 /HPF LAB URINALYSIS - AUTOMATED METHOD 01/17/2025 12:04 PM [facility] WBC, Urine 505.7(H) 0 - 4 /HPF LAB URINALYSIS - AUTOMATED METHOD 01/17/2025 12:04 PM [facility] Squamous Epithelial, Urine 4 0 - 60 /LPF LAB URINALYSIS - AUTOMATED METHOD 01/17/2025 12:04 PM [facility] Bacteria, Urine Negative Negative /HPF LAB URINALYSIS - AUTOMATED METHOD 01/17/2025 12:04 PM [facility] Hyaline Casts, Urine 4.8(H) 0 - 3 /LPF LAB URINALYSIS - AUTOMATED METHOD 01/17/2025 12:04 PM [facility] Urine Indwelling urinary catheter / Unknown Non-blood Collection / Unknown 01/17/2025 4:00 AM EST 01/17/2025 10:12 AM EST Fidencio Burroughs MD LAB URINE ORDERABLES Final Res ult [facility] [address] [place] [address], * [place]keon urine culture tube (01/17/2025 4:00 AM EST) Extra Tube Hold for add-ons. 01/17/2025 12:01 PM [facility] Comment:Auto resulted. Urine Indwelling urinary catheter / Unknown Non-blood Collection / Unknown 01/17/2025 4:00 AM EST 01/17/2025 10:12 AM EST Fidencio Burroughs MD LAB URINE ORDERABLES Final Res ult [facility] [address] [place] [address], documented in this encounter Visit Diagnoses Diagnosis Encounter for other general examination documented in this encounter Additional Health Concerns Infection Onset Date Last Indicated Resolved Time ESBL 05/25/2025 05/25/2025 documented as of this encounter Care Teams Purse Framer Relationship Specialty Start Date End Date Cj Barber DO [address] [place] [phone] PCP - General 04/21/13 documented as of this encounter
== END 2025-08-04 10:13 | disposition home or self-care (01) ==
LOC: HO.ACS 09:55
PROVIDERS: PCP Internal Medicine; Visit Provider Internal Medicine Medical Oncology
DX: Z79.01 Long term (current) use of anticoagulants (principal)

== ENCOUNTER → 2025-08-04 09:55 | Outpatient (BNVA) | payer MEDICARE, SELFPAY | PROVIDERS: PCP Internal Medicine; Visit Provider Internal Medicine Medical Oncology | DX: I82.409 Acute embolism and thrombosis of unspecified deep veins of unspecified lower extremity (principal); I48.91 Unspecified atrial fibrillation; I26.99 Other pulmonary embolism without acute cor pulmonale; Z79.01 Long term (current) use of anticoagulants; Z51.81 Encounter for therapeutic drug level monitoring | CPT/HCPCS: 85610; 99211 ==

== ENCOUNTER 2025-08-09 15:33 | Outpatient (AMB) | payer MEDICARE, SELFPAY ==
--- OUTSIDE RECORDS SUMMARY | 2025-08-09 13:10 | XMS_ITS | Encounter Summary ---
Author Organization [facility] Address [address] [place] [address] Care Team Providers Care Bilingual Patient Support Caseworker Name Role Phone Cj Barber DO Primary Care Provider [phone] Reason for Visit * Reason Comments Follow-up Encounter Details Date Type Department Care Team ([facility] Contact Info) Description 08/09/2025 1:10 PM EDT Office Visit [facility] [address] [place] [address] Shahid Ramos NP [address] [place] [address] [address] [place] [address] PAF (paroxysmal atrial fibrillation) (CMS/[facility] V24, CMS/HCC V28) (Primary Dx); Acute pulmonary embolism, unspecified pulmonary embolism type, unspecified whether acute cor pulmonale present (CMS/HCC V24, CMS/HCC V28); Coronary artery disease involving [place] coronary artery of [place] heart without angina pectoris; Hypercholesterolemia Social History Tobacco Use Types Packs/Day [...] Sign Reading Time Taken Comments Blood Pressure 110/60 08/09/2025 1:26 PM EDT Pulse 65 08/09/2025 1:26 PM EDT Temperature - - Respiratory Rate - - Oxygen Saturation 96% 08/09/2025 1:26 PM EDT Inhaled Oxygen Concentration - - Weight 69.4 kg (153 lb) 08/09/2025 1:26 PM EDT Height 162.6 cm (5' 4 ) 08/09/2025 1:26 PM EDT Body Mass Index 26.26 08/09/2025 1:26 PM EDT documented in this encounter Progress Notes * Shahid Ramos NP - 08/09/2025 1:10 PM EDTAssociated Problem(s): PAF (paroxysmal atrial fibrillation) (CMS/HCC V24, CMS/HCC V28) Paroxysmal atrial fibrillation. Asymptomatic. CHADSVASc - 6. Continue with metoprolol and warfarin. * Shahid Ramos NP - 08/09/2025 1:10 PM EDTAssociated Problem(s): Coronary artery disease involving k[place] coronary artery of [place] heart without angina pectoris Catheterization from 2011 during inferior STEMI with RCA stent. Last Nuclear stress test in 2023 showed small in size and mild in intensity reversible perfusion defect in the apical inferolateral wall and apex suggestive of ischemia. Echocardiogram from 2023 showed preserved LV systolic function LVEF 65-75% with no obvious wall motion abnormalities. No anginal symptoms. Continue with aspirin, atorvastatin, warfarin, isosorbide, metoprolol and furosemide. We discussed risk reduction through lifestyle choices including healthy diet, routine exercise and weight management. * Shahid Ramos NP - 08/09/2025 1:10 PM EDTAssociated Problem(s): Acute pulmonary embolism (CMS/HCC V24, CMS/HCC V28) Continue with warfarin for at least three months for PE, but would continue with warfarin anyways for atrial fibrillation. Continue aspirin indefinitely. * Shahid Ramos NP - 08/09/2025 1:10 PM EDTAssociated Problem(s): Hypercholesterolemia Continue with atorvastatin. documented in this encounter Plan of Treatment Not on file documented as of this encounter Visit Diagnoses Diagnosis PAF (paroxysmal atrial fibrillation) ([facility] V24, [facility] V28)- Primary Atrial fibrillation Acute pulmonary embolism, unspecified pulmonary embolism type, unspecified whether acute cor pulmonale present (CMS/[facility] V24, [facility] V28) Coronary artery disease involving k[place] coronary artery of [place] heart without angina pectoris Hypercholesterolemia Pure hypercholesterolemia documented in this encounter Discontinued Medications Medication Sig Discontinue Reason Start Date End Da te finasteride (PROSCAR) 5 mg tablet Take 1 tablet (5 mg total) by mouth 1 (one) time each day. Do not crush, chew, or split. Prescriber Discontinued 08/09/2025 furosemide (LASIX) 20 mg tablet Take 1 tablet (20 mg total) by mouth 1 (one) time each day. Prescriber Discontinued 12/16/2024 08/09/2025 lisinopriL (PRINIVIL,ZESTRIL) 5 mg tabletIndications:Cor onary artery disease involving [place] coronary artery of [place] heart without angina pectoris Take 1 tablet (5 mg total) by mouth 1 (one) time each day. Prescriber Discontinued 08/09/2025 tamsulosin (FLOMAX) 0.4 mg 24 hr capsule Take 1 capsule (0.4 mg total) by mouth 1 (one) time each day with breakfast. Capsules should be taken 30 minutes following the same meal each day. Prescriber Discontinued 08/09/2025 documented as of this encounter Additional Health Concerns Infection Onset Date Last Indicated Resolved Time ESBL 05/25/2025 05/25/2025 documented as of this encounter Care Teams Bilingual Patient Support Caseworker Relationship Specialty Start Date End Date Cj Barber DO [address] [place] [phone] PCP - General 04/21/13 documented as of this encounter
[2025-08-09 15:37] VITALS: BP 85/39; PULSE 76; TEMP 36.6; O2SAT 97; BMI 26.3
--- NOTE | 2025-08-09 15:37 | AM.OFFWIN_ITS ---
Intake Vital Signs 08/09/25 15:37 Height 5 ft 4 in Weight 153 lb BMI 26.3 BP 85/39 L Blood Pressure Location Lt brachial Position Sitting Pulse 76 Pulse Source Pulse Oximeter Temp 97.9 F Temp Source Oral Pulse Oximetry (%) 97 Oxygen Delivery Method Room Air Intake Visit Reasons: ep sores on right legs Intake Note: pt presents with scaly, red rash to bilateral lower legs Patient Tobacco Use Status: Former Tobacco user Allergies No Known Allergies (No Known Allergies*) Allergy (Verified 08/09/25 15:43) Do you need a note to return to daycare/school/sports/work: No HPI HPI Comments History of Present Illness Details History of Present Illness - The patient is an 85-year-old male pre senting with leg sores and associated symptoms. - The leg sores have been present for a few months and have recently worsened, showing yellow crusting, not itchy or painful. - The patient reports no pain or itchine ss associated with the sores, but there is a concern for potential infection. - The patient has experienced dizziness and lightheadedness, particularly this afternoon. - Blood pressure was recorded at 85/38 a nd 80/58 mmHg, significantly lower than usual, raising concerns for potential sepsis. - The patient denies any recent changes in cardiac medications and has been compliant with warfarin, metoprolol, and isosorbide. - There is no history of fever or chills , and the patient reports normal appetite and fluid intake. Physical Exam General: Cooperative, healthy appearing, comfortable, no acute distress and well developed Orientation: Patient oriented x3 Limitations: No limitations Head: Normal to inspection Ears: Hearing grossly normal bilaterally Nose: Normal External nose present Face and sinus: Normal facial exam Eyes: Appearance normal, both eyes and all related structures Neck: Normal visual inspection and Yes full ROM Respiratory: Normal respiratory effort and able to speak in complete sentences. Skin: Warm overall, with 3cm x 2cm rash of erythematous and yellow crusting on right lateral lower leg and 1cm area of similar crusting on left lateral lower leg. Neuro: Patient oriented x3 Extremities: Normal to inspection [facility] Medical History (Updated 08/09/25 @ 16:06 by Elena Gregg PA-C) Unspecified cord compression Anemia Hyperlipidemia Gross hematuria Urinary retention Enlarged prostate Pre-op evaluation Lower extremity weakness Physical deconditioning Muscular deconditioning Bilateral arm weakness DVT (deep venous thrombosis) On Coumadin for atrial fibrillation Chronic indwelling Nolan catheter Weakness Hospital discharge follow-up Dyspnea on exertion Vitamin D deficiency Vasovagal syncope Elevated PSA GERD (gastroesophageal reflux disease) Mild hypercholesterolemia Hypertension Coronary artery disease Walker as ambulation aid BPH (benign prostatic hyperplasia) Indwelling Nolan catheter calcification UTI (urinary tract infection) NSTEMI (non-ST elevated myocardial infarction) 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 Mother No problems noted. Social History Household Members: Spouse and Children Housing: House Do you presently have visiting nurse or other home services: Yes Unable to assess alcohol history related to: Unknown Alcohol intake: current Alcohol intake frequency: does not drink Patient Tobacco Use Status: Former Tobacco user Advance Directives Date on File: 02/10/25 service: No Current occupational status: retired Current occupational exposures/hazards: No Cognitive needs: Yes (walker) Hearing needs: Yes (b/l hearing aids) Vision needs: Yes (rx glasses) Review of Systems Const All systems reviewed & are unremarkable except as noted in HPI and below Physical Exam Vital Signs: Last Vital Signs Temp 97.9 F 08/09/25 15:37 Pulse 76 08/09/25 15:37 BP 85/39 L 08/09/25 15:37 Pulse Ox 97 08/09/25 15:37 Oxygen Delivery Method Room Air 08/09/25 15:37 BMI result Body Mass Index 26.3 Assessment & Plan Assessment & Plan (1) Hypotension: Code(s): I95.9 - Hypotension, unspecified Qualifiers: Hypotension type: unspecified hypotension type Qualified Code(s): I95.9 - Hypotension, unspecified Plan: Plan Patient was informed and verbally consented to the use of an ambient scribe for clinic note documentation during this visit. Hypotension - Recommended evaluation at the emergency department due to significantly low blood pressure and associated dizziness, feeling faint. BP 85/39, re-check was similar, HR is WNL and afebrile. - Urged immediate evaluation at the emergency department to rule out sepsis, given the low blood pressure and skin infection. - Suggested possible intravenous fluids to address potential dehydration. - Called [facility] with expect. Coding Level of Care Code Est Pt Level 5 (11794) Diagnoses Hypotension, unspecified hypotension type I95.9 Hypotension type: unspecified hypotension type
--- OUTSIDE RECORDS SUMMARY | 2025-08-09 18:52 | XMS_ITS | Encounter Summary ---
Author Organization [facility] Address [address] [place] [address] Care Team Providers Care Metal Room Dental Technician Name Role Phone Cj Barber DO Primary Care Provider [phone] Encounter Details Date Type Department Care Team (Late st Contact Info) Description 05/25/2025 Lab Requisition [facility] - Main Lab [address] [facility], [facility] [place] [address] Hilton Saavedra, [address] [place] [address] Urinary tract infection, site not specified; Benign [...] mirabilis ESBL(A) BAUDILIO 05/29/2025 8:45 AM EDT [facility] Comment: THIS ORGANISM IS POSITIVE [...] Pseudomonas aeruginosa(A) BAUDILIO 05/29/2025 8:45 AM EDT [facility] Comment: The organism value for this result has been updated. These results have been appended to the previously preliminary verified report. This is an edited result. Previous organism was Gram negative bacilli on 05/27/2025 at 1022 EDT. Urine Urine specimen obtained by clean catch procedure / Unknown 05/25/2025 05/25/2025 5:52 PM EDT Narrative [facility] - 05/29/2025 8:45 AM EDT [...] Susceptible Pseudomonas aeruginosa Cefepime DISK DIFFUSION Susceptible [facility] MICROBIOLOGY - GENERAL TRISTEN GALAVIZ Final Result [facility] ([facility] [address] [place] [address], documented in this encounter Visit Diagnoses Diagnosis Urinary tract infection, site not specified Benign prostatic hyperplasia with lower urinary tract symptoms documented in this encounter Additional Health Concerns Infection Onset Date Last Indicated Resolved Time ESBL 05/25/2025 05/25/2025 documented as of this encounter Care Teams Metal Room Dental Technician Relationship Specialty Start Date End Date Cj Barber DO [address] [place] [phone] PCP - General 04/21/13 documented as of this encounter
--- OUTSIDE RECORDS SUMMARY | 2025-08-09 18:52 | XMS_ITS | Encounter Summary ---
Author Organization [facility] Address [address] [place] [address] Care Team Providers Care Kaiwhakahaere Name Role Phone Cj Barber DO Primary Care Provider [phone] Encounter Details Date Type Department Care Team (Late st Contact Info) Description 01/15/2025 Lab Requisition [facility] - Main Lab [address] [facility] [place] [address] Fidencio Burroughs MD [address] [place] [id number] Encounter for other general examination Social History [...] K/mcL LAB HEMETOLOGY METHOD 01/15/2025 11:56 AM [facility] RBC 4.50 4.50 - 5.50 M/mcL LAB HEMETOLOGY METHOD 01/15/2025 11:56 AM [facility] Hemoglobin 13.9 13.5 - 17.5 g/dL LAB HEMETOLOGY METHOD 01/15/2025 11:56 AM [facility] Hematocrit 42.3 42.0 - 54.0 % LAB HEMETOLOGY METHOD 01/15/2025 11:56 AM [facility] MCV 95.1 79.0 - 98.0 FL LAB HEMETOLOGY METHOD 01/15/2025 11:56 AM [facility] MCH 31.2 27.0 - 32.0 pcg LAB HEMETOLOGY METHOD 01/15/2025 11:56 AM [facility] MCHC 32.9 32.0 - 37.0 g/dL LAB HEMETOLOGY METHOD 01/15/2025 11:56 AM [facility] RDW 13.2 11.0 - 15.0 % LAB HEMETOLOGY METHOD 01/15/2025 11:56 AM [facility] Platelets 01/15/2025 11:56 AM [facility] Comment:Not measured. Platel ets appear adequate but clumped MPV 11.4(H) 7.0 - 11.0 FL LAB HEMETOLOGY METHOD 01/15/2025 11:56 AM [facility] NRBC 0.0 <1.0 % LAB HEMETOLOGY METHOD 01/15/2025 11:56 AM [facility] NRBC Absolute 0.00 <0.10 K/mcL LAB HEMETOLOGY METHOD 01/15/2025 11:56 AM [facility] Neutrophils Relative 76.9 % LAB HEMETOLOGY METHOD 01/15/2025 11:56 AM [facility] Lymphocytes Relative 11.4 % LAB HEMETOLOGY METHOD 01/15/2025 11:56 AM [facility] Monocytes Relative 10.7 % LAB HEMETOLOGY METHOD 01/15/2025 11:56 AM [facility] Eosinophils Relative 0.6 % LAB HEMETOLOGY METHOD 01/15/2025 11:56 AM [facility] Basophils Relative 0.2 % LAB HEMETOLOGY METHOD 01/15/2025 11:56 AM [facility] Immature Granulocytes Relative 0.2 % LAB HEMETOLOGY METHOD 01/15/2025 11:56 AM [facility] Neutrophils Absolute 6.15 1.50 - 7.00 K/mcL LAB HEMETOLOGY METHOD 01/15/2025 11:56 AM [facility] Lymphocytes Absolute 0.91(L) 1.00 - 5.00 K/mcL LAB HEMETOLOGY METHOD 01/15/2025 11:56 AM [facility] Monocytes Absolute 0.86 0.20 - 1.00 K/mcL LAB HEMETOLOGY METHOD 01/15/2025 11:56 AM [facility] Eosinophils Absolute 0.05 0.00 - 0.50 K/mcL LAB HEMETOLOGY METHOD 01/15/2025 11:56 AM [facility] Basophils Absolute 0.02 0.00 - 0.20 K/mcL LAB HEMETOLOGY METHOD 01/15/2025 11:56 AM [facility] Immature Granulocytes Absolute 0.02 0.00 - 0.03 K/mcL LAB HEMETOLOGY METHOD 01/15/2025 11:56 AM [facility] Blood Venous blood specimen / Unknown Venipuncture / Unknown 01/15/2025 6:39 AM EST 01/15/2025 10:03 AM EST Fidencio Burroughs MD LAB BLOOD ORDERABLES Final Res ult [facility] [address] [place] [address], [place] [phone] * Magnesium (01/15/2025 6:39 AM EST) Magnesium 2.0 1.9 - 2.6 mg/dL LAB CHEMISTRY METHOD 01/15/2025 11:40 AM EST [facility] Blood Venous blood specimen / Unknown Venipuncture / Unknown 01/15/2025 6:39 AM EST 01/15/2025 10:03 AM EST Fidencio Burroughs MD LAB BLOOD ORDERABLES Final Res ult [facility] [address] [place] [address], [place] [phone] * (ABNORMAL) Comprehensive metabolic panel (01/15/2025 6:39 AM EST) Sodium 136 133 - 145 mmol/L LAB CHEMISTRY METHOD 01/15/2025 11:40 AM [facility] Potassium 3.9 3.5 - 5.5 mmol/L LAB CHEMISTRY METHOD 01/15/2025 11:40 AM [facility] Chloride 103 96 - 110 mmol/L LAB CHEMISTRY METHOD 01/15/2025 11:40 AM EST [facility] CO2 28 21 - 32 mmol/L LAB CHEMISTRY METHOD 01/15/2025 11:40 AM EST [facility] Anion Gap 5 3 - 11 LAB CHEMISTRY METHOD 01/15/2025 11:40 AM EST [facility] Glucose 89 70 - 100 mg/dL LAB CHEMISTRY METHOD 01/15/2025 11:40 AM [facility] BUN 15 5 - 25 mg/dL LAB CHEMISTRY METHOD 01/15/2025 11:40 AM [facility] Creatinine 0.48(L) 0.70 - 1.30 mg/dL LAB CHEMISTRY METHOD 01/15/2025 11:40 AM [facility] eGFR 101 >=60 mL/min/1. 73m2 LAB CHEMISTRY METHOD 01/15/2025 11:40 AM [facility] Comment:Calculation based on the Chronic Kidney Disease Epidemiology Collaboration (CKD-EPI) equation refit without adjustment for race. BUN/Creatinine Ratio 31.3 LAB CHEMISTRY METHOD 01/15/2025 11:40 AM [facility] Calcium 8.8 8.5 - 10.5 mg/dL LAB CHEMISTRY METHOD 01/15/2025 11:40 AM [facility] AST (SGOT) 28 10 - 42 unit/L LAB CHEMISTRY METHOD 01/15/2025 11:40 AM [facility] ALT (SGPT) 31 10 - 60 unit/L LAB CHEMISTRY METHOD 01/15/2025 11:40 AM [facility] Alkaline Phosphatase 104 42 - 121 unit/L LAB CHEMISTRY METHOD 01/15/2025 11:40 AM [facility] Total Protein 5.9(L) 6.0 - 8.0 g/dL LAB CHEMISTRY METHOD 01/15/2025 11:40 AM [facility] Albumin 2.9(L) 3.2 - 5.0 g/dL LAB CHEMISTRY METHOD 01/15/2025 11:40 AM [facility] Total Bilirubin 1.0 0.0 - 1.4 mg/dL LAB CHEMISTRY METHOD 01/15/2025 11:40 AM [facility] Blood Venous blood specimen / Unknown Venipuncture / Unknown 01/15/2025 6:39 AM EST 01/15/2025 10:03 AM EST us Fidencio Burroughs MD LAB BLOOD ORDERABLES Final Res ult [facility] [address] [place] [address], documented in this encounter Visit Diagnoses Diagnosis Encounter for other general examination documented in this encounter Additional Health Concerns Infection Onset Date Last Indicated Resolved Time ESBL 05/25/2025 05/25/2025 documented as of this encounter Care Teams Kaiwhakahaere Relationship Specialty Start Date End Date Cj Barber DO [address] [place] [phone] PCP - General 04/21/13 documented as of this encounter
--- OUTSIDE RECORDS SUMMARY | 2025-08-09 18:52 | XMS_ITS | Encounter Summary ---
Author Organization [facility] Address [address] [place] [address] Care Team Providers Care Executive Legal Secretary Name Role Phone Cj Barber DO Primary Care Provider [phone] Encounter Details Date Type Department Care Team (Late st Contact Info) Description 01/17/2025 Lab Requisition [facility] - Main Lab 299 [facility] [place] [address] Fidencio Burroughs MD [address] [place] [address] Encounter for other general examination Social History [...] mirabilis(A ) BAUDILIO 01/19/2025 11:30 AM EST [facility] Comment: Edited result: Previously [...] MICROBIOLOGY - GENERAL ORD ERABLES Final Result [facility] [address] [place] [address], [place] [phone] * (ABNORMAL) Urinalysis with reflex microscopic and culture (01/17/2025 4:00 AM EST) Specific [place] Urine 1.009 1.003 - 1.030 LAB URINALYSIS [...] ORDERABLES Final Res ult Performing Organization Address [facility]/ZIP Co de Phone Number [facility] [address] [place] [address], [place] [phone] * Mckeon urine culture tube (01/17/2025 4:00 AM EST) Extra Tube Hold for add-ons. 01/17/2025 12:01 PM [facility] Comment:Auto resulted. Urine Indwelling urinary catheter / Unknown Non-blood Collection / Unknown 01/17/2025 4:00 AM EST 01/17/2025 10:12 AM EST us Fidencio Burroughs MD LAB URINE ORDERABLES Final Res ult Performing Organization Address City/[facility]/ZIP Co de Phone Number [facility] [address] [place] [address], [place] [phone] documented in this encounter Visit Diagnoses Diagnosis Encounter for other general examination documented in this encounter Additional Health Concerns Infection Onset Date Last Indicated Resolved Time ESBL 05/25/2025 05/25/2025 documented as of this encounter Care Teams Executive Legal Secretary Relationship Specialty Start Date End Date Cj Barber DO [address] [place] [phone] PCP - General 04/21/13 documented as of this encounter
--- OUTSIDE RECORDS SUMMARY | 2025-08-09 18:52 | XMS_ITS | Encounter Summary ---
Author Organization [facility] Address [address] [place] [address] Care Team Providers Care Database Dba Name Role Phone Cj Barber DO Primary Care Provider [phone] Encounter Details Date Type Department Care Team (Late st Contact Info) Description 01/25/2025 Lab Requisition [facility] - Main Lab 299 [facility] [place] [address] Fidencio Burroughs MD [address] [place] [address] Encounter for other general examination Social History [...] AM EST) WBC 7.8 4.8 - 10.8 /[facility] LAB HEMETOLOGY METHOD 01/25/2025 11:36 AM [facility] RBC 4.50 4.50 - 5.50 M/mcL LAB HEMETOLOGY METHOD 01/25/2025 11:36 AM [facility] Hemoglobin 13.7 13.5 - 17.5 g/dL LAB HEMETOLOGY METHOD 01/25/2025 11:36 AM [facility] Hematocrit 41.6(L) 42.0 - 54.0 % LAB HEMETOLOGY METHOD 01/25/2025 11:36 AM [facility] MCV 93.3 79.0 - 98.0 FL LAB HEMETOLOGY METHOD 01/25/2025 11:36 AM [facility] MCH 30.7 27.0 - 32.0 pcg LAB HEMETOLOGY METHOD 01/25/2025 11:36 AM [facility] MCHC 32.9 32.0 - 37.0 g/dL LAB HEMETOLOGY METHOD 01/25/2025 11:36 AM [facility] RDW 12.9 11.0 - 15.0 % LAB HEMETOLOGY METHOD 01/25/2025 11:36 AM [facility] Platelets 01/25/2025 11:36 AM [facility] Comment:Not measured. Platel ets appear adequate but clumped MPV 11.1(H) 7.0 - 11.0 FL LAB HEMETOLOGY METHOD 01/25/2025 11:36 AM [facility] NRBC 0.0 <1.0 % LAB HEMETOLOGY METHOD 01/25/2025 11:36 AM [facility] NRBC Absolute 0.00 <0.10 K/mcL LAB HEMETOLOGY METHOD 01/25/2025 11:36 AM [facility] Blood Venous blood specimen / Unknown Venipuncture / Unknown 01/25/2025 7:02 AM EST 01/25/2025 10:36 AM EST us Fidencio Burroughs MD LAB BLOOD ORDERABLES Final Res ult [facility] [address] [place] [address], [place] [phone] * (ABNORMAL) Comprehensive metabolic panel (01/25/2025 7:02 AM EST) Sodium 137 133 - 145 mmol/L LAB CHEMISTRY METHOD 01/25/2025 11:50 AM EST [facility] Potassium 3.9 3.5 - 5.5 mmol/L LAB CHEMISTRY METHOD 01/25/2025 11:50 AM [facility] Chloride 101 96 - 110 mmol/L LAB CHEMISTRY METHOD 01/25/2025 11:50 AM [facility] CO2 27 21 - 32 mmol/L LAB CHEMISTRY METHOD 01/25/2025 11:50 AM [facility] Anion Gap 9 3 - 11 LAB CHEMISTRY METHOD 01/25/2025 11:50 AM [facility] Glucose 87 70 - 100 mg/dL LAB CHEMISTRY METHOD 01/25/2025 11:50 AM [facility] BUN 10 5 - 25 mg/dL LAB CHEMISTRY METHOD 01/25/2025 11:50 AM [facility] Creatinine 0.50(L) 0.70 - 1.30 mg/dL LAB CHEMISTRY METHOD 01/25/2025 11:50 AM [facility] eGFR 100 >=60 mL/min/1. 73m2 LAB CHEMISTRY METHOD 01/25/2025 11:50 AM [facility] Comment:Calculation based on the Chronic Kidney Disease Epidemiology Collaboration (CKD-EPI) equation refit without adjustment for race. BUN/Creatinine Ratio 20.0 LAB CHEMISTRY METHOD 01/25/2025 11:50 AM [facility] Calcium 9.1 8.5 - 10.5 mg/dL LAB CHEMISTRY METHOD 01/25/2025 11:50 AM [facility] AST (SGOT) 28 10 - 42 unit/L LAB CHEMISTRY METHOD 01/25/2025 11:50 AM [facility] ALT (SGPT) 38 10 - 60 unit/L LAB CHEMISTRY METHOD 01/25/2025 11:50 AM [facility] Alkaline Phosphatase 127(H) 42 - 121 unit/L LAB CHEMISTRY METHOD 01/25/2025 11:50 AM [facility] Total Protein 6.1 6.0 - 8.0 g/dL LAB CHEMISTRY METHOD 01/25/2025 11:50 AM [facility] Albumin 3.1(L) 3.2 - 5.0 g/dL LAB CHEMISTRY METHOD 01/25/2025 11:50 AM [facility] Total Bilirubin 0.7 0.0 - 1.4 mg/dL LAB CHEMISTRY METHOD 01/25/2025 11:50 AM [facility] Blood Venous blood specimen / Unknown Venipuncture / Unknown 01/25/2025 7:02 AM EST 01/25/2025 10:36 AM EST us Fidencio Burroughs MD LAB BLOOD ORDERABLES Final Res ult [facility] [address] [place] [address], documented in this encounter Visit Diagnoses Diagnosis Encounter for other general examination documented in this encounter Additional Health Concerns 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
--- OUTSIDE RECORDS SUMMARY | 2025-08-09 18:52 | XMS_ITS | Encounter Summary ---
Author Organization [facility] Address [address] [place] [address] Care Team Providers Care Rehabilitation Services Counselor Name Role Phone Cj Barber DO Primary Care Provider [phone] Encounter Details Date Type Department Care Team (Late st Contact Info) Description 02/26/2025 Lab Requisition [facility] - Main Lab 299 [facility] [place] [address] Fidencio Burroughs MD [address] [place] [address] Encounter for other general examination Social History [...] auto differential (02/26/2025 6:35 AM EDT) 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
--- OUTSIDE RECORDS SUMMARY | 2025-08-09 18:52 | XMS_ITS | Encounter Summary ---
Author Organization [facility] Address [address] [place] [address] Care Team Providers Care Application Assistant Name Role Phone Cj Barber DO Primary Care Provider [phone] Encounter Details Date Type Department Care Team (Late st Contact Info) Description 02/19/2025 Lab Requisition [facility] - Main Lab 299 [facility] [place] [address] Fidencio Burroughs MD [address] [place] [address] Encounter for other general examination Social History [...] EDT [facility] NRBC 0.0 <1.0 % LAB HEMETOLOGY METHOD 02/19/2025 12:54 PM EDT [facility] NRBC Absolute 0.00 <0.10 K/mcL LAB HEMETOLOGY METHOD 02/19/2025 12:54 PM [facility] Neutrophils Relative 83.5 % LAB HEMETOLOGY METHOD 02/19/2025 12:54 PM [facility] Lymphocytes Relative 10.5 % LAB HEMETOLOGY METHOD 02/19/2025 12:54 PM [facility] Monocytes Relative 5.4 % LAB HEMETOLOGY METHOD 02/19/2025 12:54 PM [facility] Eosinophils Relative 0.0 % LAB HEMETOLOGY METHOD 02/19/2025 12:54 PM [facility] Basophils Relative 0.1 % LAB HEMETOLOGY METHOD 02/19/2025 12:54 PM [facility] Immature Granulocytes Relative 0.5 % LAB HEMETOLOGY METHOD 02/19/2025 12:54 PM [facility] Neutrophils Absolute 8.77(H) 1.50 - 7.00 K/mcL LAB HEMETOLOGY METHOD 02/19/2025 12:54 PM [facility] Lymphocytes Absolute 1.10 1.00 - 5.00 K/mcL LAB HEMETOLOGY METHOD 02/19/2025 12:54 PM [facility] Monocytes Absolute 0.57 0.20 - 1.00 K/mcL LAB HEMETOLOGY METHOD 02/19/2025 12:54 PM [facility] Eosinophils Absolute 0.00 0.00 - 0.50 K/mcL LAB HEMETOLOGY METHOD 02/19/2025 12:54 PM [facility] Basophils Absolute 0.01 0.00 - 0.20 K/mcL LAB HEMETOLOGY METHOD 02/19/2025 12:54 PM [facility] Immature Granulocytes Absolute 0.05(H) 0.00 - 0.03 K/mcL LAB HEMETOLOGY METHOD 02/19/2025 12:54 PM EDT [facility] Blood Venous blood specimen / Unknown Venipuncture / Unknown 02/19/2025 5:42 AM EDT 02/19/2025 9:50 AM EDT Fidencio Burroughs MD LAB BLOOD ORDERABLES Final Res ult Performing Organization Address [facility]/ZIP Co de Phone Number [facility] [address] [place] [address], [place] [phone] * Magnesium (02/19/2025 5:42 AM EDT) Pathologist [facility] Magnesium 2.4 1.9 - 2.6 mg/dL LAB CHEMISTRY METHOD 02/19/2025 12:23 PM EDT [facility] Blood Venous blood specimen / Unknown Venipuncture / Unknown 02/19/2025 5:42 AM EDT 02/19/2025 9:50 AM EDT Fidencio Burroughs MD LAB BLOOD ORDERABLES Final Res ult Performing Organization Address [facility]/ZIP Co de Phone Number [facility] [address] [place] [address], [place] [phone] * (ABNORMAL) Comprehensive metabolic panel (02/19/2025 5:42 AM EDT) Sodium 131(L) 133 - 145 mmol/L LAB CHEMISTRY METHOD 02/19/2025 12:41 PM EDT [facility] Potassium 4.5 3.5 - 5.5 mmol/L LAB CHEMISTRY METHOD 02/19/2025 12:41 PM EDT [facility] Chloride 94(L) 96 - 110 mmol/L LAB CHEMISTRY METHOD 02/19/2025 12:41 PM EDT [facility] CO2 29 21 - 32 mmol/L LAB CHEMISTRY METHOD 02/19/2025 12:41 PM [facility] Anion Gap 8 3 - 11 LAB CHEMISTRY METHOD 02/19/2025 12:41 PM [facility] Glucose 61(L) 70 - 100 mg/dL LAB CHEMISTRY METHOD 02/19/2025 12:41 PM [facility] BUN 23 5 - 25 mg/dL LAB CHEMISTRY METHOD 02/19/2025 12:41 PM [facility] Creatinine 0.70 0.70 - 1.30 mg/dL LAB CHEMISTRY METHOD 02/19/2025 12:41 PM [facility] eGFR 90 >=60 mL/min/1. 73m2 LAB CHEMISTRY METHOD 02/19/2025 12:41 PM [facility] Comment:Calculation based on the Chronic Kidney Disease Epidemiology Collaboration (CKD-EPI) equation refit without adjustment for race. BUN/Creatinine Ratio 32.9 LAB CHEMISTRY METHOD 02/19/2025 12:41 PM [facility] Calcium 9.1 8.5 - 10.5 mg/dL LAB CHEMISTRY METHOD 02/19/2025 12:41 PM [facility] AST (SGOT) 31 10 - 42 unit/L LAB CHEMISTRY METHOD 02/19/2025 12:41 PM [facility] ALT (SGPT) 90(H) 10 - 60 unit/L LAB CHEMISTRY METHOD 02/19/2025 12:41 PM [facility] Alkaline Phosphatase 127(H) 42 - 121 unit/L LAB CHEMISTRY METHOD 02/19/2025 12:41 PM [facility] Total Protein 6.2 6.0 - 8.0 g/dL LAB CHEMISTRY METHOD 02/19/2025 12:41 PM [facility] Albumin 3.3 3.2 - 5.0 g/dL LAB CHEMISTRY METHOD 02/19/2025 12:41 PM [facility] Total Bilirubin 0.7 0.0 - 1.4 mg/dL LAB CHEMISTRY METHOD 02/19/2025 12:41 PM EDT [facility] Blood Venous blood specimen / Unknown Venipuncture / Unknown 02/19/2025 5:42 AM EDT 02/19/2025 9:50 AM EDT us Fidencio Burroughs MD LAB BLOOD ORDERABLES Final Res ult [facility] [address] [place] [address], documented in this encounter Visit Diagnoses Diagnosis Encounter for other general examination documented in this encounter Additional Health Concerns 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
--- OUTSIDE RECORDS SUMMARY | 2025-08-09 18:52 | XMS_ITS | Encounter Summary ---
Author Organization [facility] Address [address] [place] [address] Care Team Providers Care Egg Packer Name Role Phone Cj Barber DO Primary Care Provider [phone] Encounter Details Date Type Department Care Team (Late st Contact Info) Description 02/25/2025 Lab Requisition [facility] - Main Lab 299 [facility] [place] [address] Fidencio Burroughs MD [address] [place] [address] Hematuria, unspecified Social History Tobacco Use Types [...] Culture urine (02/24/2025 6:00 PM EDT) Pathologist [facility] [place] Culture, Urine 10,000-49,0 00 CFU/mL Lucrecia albicans/du bliniensis( A) 02/27/2025 12:30 PM EDT [facility] Comment: Edited result: Previously reported as Yeast on 02/26/2025 at 1030 EDT. Urine Indwelling urinary catheter / Unknown 02/24/2025 6:00 PM EDT 02/25/2025 12:09 PM EDT us Fidencio Burroughs MD LAB MICROBIOLOGY - GENERAL ORD ERABLES Final Result [facility] [address] [place] [address], [place] [phone] * (ABNORMAL) Urinalysis with reflex microscopic and culture (02/24/2025 6:00 PM EDT) Pathologist [facility] [place] Specific [place] Urine 1.023 1.003 - 1.030 LAB URINALYSIS - AUTOMATED METHOD 02/25/2025 12:09 PM EDT [facility] pH, Urine 6.0 5.0 - 8.0 pH LAB URINALYSIS - AUTOMATED METHOD 02/25/2025 12:09 PM EDT [facility] Leukocytes, Urine Large(A) Negative LAB URINALYSIS - AUTOMATED METHOD 02/25/2025 12:09 PM EDT [facility] Nitrite, Urine Negative Negative LAB URINALYSIS - AUTOMATED METHOD 02/25/2025 12:09 PM EDT [facility] Protein, Urine 30(A) <=Trace mg/dL LAB URINALYSIS - AUTOMATED METHOD 02/25/2025 12:09 PM EDT [facility] Glucose, Urine Negative Negative mg/dL LAB URINALYSIS - AUTOMATED METHOD 02/25/2025 12:09 PM [facility] Ketones, Urine Negative Negative mg/dL LAB URINALYSIS - AUTOMATED METHOD 02/25/2025 12:09 PM [facility] Urobilinogen , Urine 1.0 0.2 - 1.0 mg/dL LAB URINALYSIS - AUTOMATED METHOD 02/25/2025 12:09 PM [facility] Bilirubin, Urine Negative Negative LAB URINALYSIS - AUTOMATED METHOD 02/25/2025 12:09 PM [facility] Blood, Urine Large(A) Negative LAB URINALYSIS - AUTOMATED METHOD 02/25/2025 12:09 PM [facility] RBC, Urine 90.1(H) 0 - 4 /HPF LAB URINALYSIS - AUTOMATED METHOD 02/25/2025 12:09 PM [facility] WBC, Urine 251.6(H) 0 - 4 /HPF LAB URINALYSIS - AUTOMATED METHOD 02/25/2025 12:09 PM [facility] Squamous Epithelial, Urine 3 0 - 60 /LPF LAB URINALYSIS - AUTOMATED METHOD 02/25/2025 12:09 PM [facility] Bacteria, Urine Negative Negative /HPF LAB URINALYSIS - AUTOMATED METHOD 02/25/2025 12:09 PM [facility] Hyaline Casts, Urine 2.4 0 - 3 /LPF LAB URINALYSIS - AUTOMATED METHOD 02/25/2025 12:09 PM [facility] Yeast, Urine Present(A) None /HPF LAB URINALYSIS - AUTOMATED METHOD 02/25/2025 12:09 PM [facility] Urine Indwelling urinary catheter / Unknown 02/24/2025 6:00 PM EDT 02/25/2025 11:30 AM EDT us Fidencio Burroughs MD LAB URINE ORDERABLES Final Res ult Performing Organization Address [facility]/ZIP Co de Phone Number [facility] [address] [place] [address], [place] [phone] * Mckeon urine culture tube (02/24/2025 6:00 PM EDT) Extra Tube Hold for add-ons. 02/25/2025 1:01 PM EDT [facility] Comment:Auto resulted. 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
--- OUTSIDE RECORDS SUMMARY | 2025-08-09 18:52 | XMS_ITS | Encounter Summary ---
Author Organization [facility] Address [address] [place] [address] Care Team Providers Care Tow Car Driver Name Role Phone Cj Barber DO Primary Care Provider [phone] Encounter Details Date Type Department Care Team (Late st Contact Info) Description 04/08/2025 Lab Requisition [facility] - Main Lab [address] [facility] [phone] Luis Miguel Caceres MD [address] [place] [phone] Gross hematuria Social History Tobacco Use Types [...] if clinically indicated. 04/10/2025 10:30 AM EDT [facility] ([facility]) 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
--- OUTSIDE RECORDS SUMMARY | 2025-08-09 18:52 | XMS_ITS | Encounter Summary ---
Author Organization [facility] Address [address] [place] [address] Care Team Providers Care Auto Cleaner Name Role Phone Cj Barber DO Primary Care Provider [phone] Encounter Details Date Type Department Care Team (Late st Contact Info) Description 02/24/2025 Lab Requisition [facility] - Main Lab 299 [facility] [place] [address] Fidencio Burroughs MD [address] [place] [phone] Encounter for other general examination Social History [...] K/mcL LAB HEMETOLOGY METHOD 02/24/2025 10:22 AM [facility] RBC 4.20(L) 4.50 - 5.50 M/mcL LAB HEMETOLOGY METHOD 02/24/2025 10:22 AM [facility] Hemoglobin 12.6(L) 13.5 - 17.5 g/dL LAB HEMETOLOGY METHOD 02/24/2025 10:22 AM [facility] Hematocrit 37.1(L) 42.0 - 54.0 % LAB HEMETOLOGY METHOD 02/24/2025 10:22 AM [facility] MCV 89.4 79.0 - 98.0 FL LAB HEMETOLOGY METHOD 02/24/2025 10:22 AM [facility] MCH 30.4 27.0 - 32.0 pcg LAB HEMETOLOGY METHOD 02/24/2025 10:22 AM [facility] MCHC 34.0 32.0 - 37.0 g/dL LAB HEMETOLOGY METHOD 02/24/2025 10:22 AM [facility] RDW 13.3 11.0 - 15.0 % LAB HEMETOLOGY METHOD 02/24/2025 10:22 AM [facility] Platelets 02/24/2025 10:22 AM [facility] Comment:Not measured. Platel ets appear adequate but clumped MPV 10.3 7.0 - 11.0 FL LAB HEMETOLOGY METHOD 02/24/2025 10:22 AM [facility] NRBC 0.0 <1.0 % LAB HEMETOLOGY METHOD 02/24/2025 10:22 AM [facility] NRBC Absolute 0.00 <0.10 K/mcL LAB HEMETOLOGY METHOD 02/24/2025 10:22 AM [facility] Blood Venous blood specimen / Unknown Venipuncture / Unknown 02/24/2025 5:01 AM EDT 02/24/2025 8:10 AM EDT Fidencio Burroughs MD LAB BLOOD ORDERABLES Final Res ult [facility] [address] [place] [address], [place] [phone] * (ABNORMAL) Comprehensive metabolic panel (02/24/2025 5:01 AM EDT) Sodium 135 133 - 145 mmol/L LAB CHEMISTRY METHOD 02/24/2025 10:11 AM [facility] Potassium 3.9 3.5 - 5.5 mmol/L LAB CHEMISTRY METHOD 02/24/2025 10:11 AM [facility] Chloride 98 96 - 110 mmol/L LAB CHEMISTRY METHOD 02/24/2025 10:11 AM [facility] CO2 29 21 - 32 mmol/L LAB CHEMISTRY METHOD 02/24/2025 10:11 AM [facility] Anion Gap 8 3 - 11 LAB CHEMISTRY METHOD 02/24/2025 10:11 AM [facility] Glucose 73 70 - 100 mg/dL LAB CHEMISTRY METHOD 02/24/2025 10:11 AM [facility] BUN 18 5 - 25 mg/dL LAB CHEMISTRY METHOD 02/24/2025 10:11 AM [facility] Creatinine 0.56(L) 0.70 - 1.30 mg/dL LAB CHEMISTRY METHOD 02/24/2025 10:11 AM [facility] eGFR 97 >=60 mL/min/1. 73m2 LAB CHEMISTRY METHOD 02/24/2025 10:11 AM [facility] Comment:Calculation based on the Chronic Kidney Disease Epidemiology Collaboration (CKD-EPI) equation refit without adjustment for race. BUN/Creatinine Ratio 32.1 LAB CHEMISTRY METHOD 02/24/2025 10:11 AM [facility] Calcium 8.8 8.5 - 10.5 mg/dL LAB CHEMISTRY METHOD 02/24/2025 10:11 AM [facility] AST (SGOT) 33 10 - 42 unit/L LAB CHEMISTRY METHOD 02/24/2025 10:11 AM [facility] ALT (SGPT) 55 10 - 60 unit/L LAB CHEMISTRY METHOD 02/24/2025 10:11 AM [facility] Alkaline Phosphatase 100 42 - 121 unit/L LAB CHEMISTRY METHOD 02/24/2025 10:11 AM [facility] Total Protein 5.4(L) 6.0 - 8.0 g/dL LAB CHEMISTRY METHOD 02/24/2025 10:11 AM [facility] Albumin 2.9(L) 3.2 - 5.0 g/dL LAB CHEMISTRY METHOD 02/24/2025 10:11 AM [facility] Total Bilirubin 0.7 0.0 - 1.4 mg/dL LAB CHEMISTRY METHOD 02/24/2025 10:11 AM [facility] Blood Venous blood specimen / Unknown Venipuncture / Unknown 02/24/2025 5:01 AM EDT 02/24/2025 8:10 AM EDT us Fidencio Burroughs MD LAB BLOOD ORDERABLES Final Res ult [facility] [address] [place] [address], documented in this encounter Visit Diagnoses Diagnosis Encounter for other general examination documented in this encounter Additional Health Concerns 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
--- OUTSIDE RECORDS SUMMARY | 2025-08-09 18:52 | XMS_ITS | Encounter Summary ---
Author Organization [facility] Address [address] [place] [address] Care Team Providers Care Monomer Purification Operator Name Role Phone Cj Barber DO Primary Care Provider [phone] Encounter Details Date Type Department Care Team (Late st Contact Info) Description 03/01/2025 Lab Requisition [facility] - Main Lab 299 [facility] [place] [address] Fidencio Burroughs MD [address] [place] [address] Encounter for other general examination Social History [...] CBC auto differential (03/01/2025 5:29 AM EDT) [facility] WBC 8.8 4.8 - 10.8 K/mcL LAB HEMETOLOGY METHOD 03/01/2025 11:58 AM [facility] RBC 3.60(L) 4.50 - 5.50 M/mcL LAB HEMETOLOGY METHOD 03/01/2025 11:58 AM [facility] Hemoglobin 11.0(L) 13.5 - 17.5 g/dL LAB HEMETOLOGY METHOD 03/01/2025 11:58 AM [facility] Hematocrit 33.0(L) 42.0 - 54.0 % LAB HEMETOLOGY METHOD 03/01/2025 11:58 AM [facility] MCV 91.2 79.0 - 98.0 FL LAB HEMETOLOGY METHOD 03/01/2025 11:58 AM [facility] MCH 30.4 27.0 - 32.0 pcg LAB HEMETOLOGY METHOD 03/01/2025 11:58 AM [facility] MCHC 33.3 32.0 - 37.0 g/dL LAB HEMETOLOGY METHOD 03/01/2025 11:58 AM [facility] RDW 13.9 11.0 - 15.0 % LAB HEMETOLOGY METHOD 03/01/2025 11:58 AM [facility] Platelets 03/01/2025 11:58 AM [facility] Comment:Not measured. Unable to quantitate due to platelet clumping MPV 10.2 7.0 - 11.0 FL LAB HEMETOLOGY METHOD 03/01/2025 11:58 AM [facility] NRBC 0.0 <1.0 % LAB HEMETOLOGY METHOD 03/01/2025 11:58 AM [facility] NRBC Absolute 0.00 <0.10 K/mcL LAB HEMETOLOGY METHOD 03/01/2025 11:58 AM [facility] Neutrophils Relative 76.0 % LAB HEMETOLOGY METHOD 03/01/2025 11:58 AM [facility] Lymphocytes Relative 13.4 % LAB HEMETOLOGY METHOD 03/01/2025 11:58 AM [facility] Monocytes Relative 9.0 % LAB HEMETOLOGY METHOD 03/01/2025 11:58 AM [facility] Eosinophils Relative 1.1 % LAB HEMETOLOGY METHOD 03/01/2025 11:58 AM [facility] Basophils Relative 0.2 % LAB HEMETOLOGY METHOD 03/01/2025 11:58 AM [facility] Immature Granulocytes Relative 0.3 % LAB HEMETOLOGY METHOD 03/01/2025 11:58 AM [facility] Neutrophils Absolute 6.69 1.50 - 7.00 K/mcL LAB HEMETOLOGY METHOD 03/01/2025 11:58 AM [facility] Lymphocytes Absolute 1.18 1.00 - 5.00 K/mcL LAB HEMETOLOGY METHOD 03/01/2025 11:58 AM [facility] Monocytes Absolute 0.79 0.20 - 1.00 K/mcL LAB HEMETOLOGY METHOD 03/01/2025 11:58 AM [facility] Eosinophils Absolute 0.10 0.00 - 0.50 K/mcL LAB HEMETOLOGY METHOD 03/01/2025 11:58 AM [facility] Basophils Absolute 0.02 0.00 - 0.20 K/mcL LAB HEMETOLOGY METHOD 03/01/2025 11:58 AM [facility] Immature Granulocytes Absolute 0.03 0.00 - 0.03 K/mcL LAB HEMETOLOGY METHOD 03/01/2025 11:58 AM [facility] Blood Venous blood specimen / Unknown Venipuncture / Unknown 03/01/2025 5:29 AM EDT 03/01/2025 9:52 AM EDT us Fidencio Burroughs MD LAB BLOOD ORDERABLES Final Res ult [facility] [address] [place] [address], [place] [phone] * (ABNORMAL) Comprehensive metabolic panel (03/01/2025 5:29 AM EDT) Sodium 137 133 - 145 mmol/L LAB CHEMISTRY METHOD 03/01/2025 12:08 PM [facility] Potassium 4.1 3.5 - 5.5 mmol/L LAB CHEMISTRY METHOD 03/01/2025 12:08 PM [facility] Chloride 101 96 - 110 mmol/L LAB CHEMISTRY METHOD 03/01/2025 12:08 PM [facility] CO2 30 21 - 32 mmol/L LAB CHEMISTRY METHOD 03/01/2025 12:08 PM [facility] Anion Gap 6 3 - 11 LAB CHEMISTRY METHOD 03/01/2025 12:08 PM [facility] Glucose 82 70 - 100 mg/dL LAB CHEMISTRY METHOD 03/01/2025 12:08 PM [facility] BUN 15 5 - 25 mg/dL LAB CHEMISTRY METHOD 03/01/2025 12:08 PM [facility] Creatinine 0.41(L) 0.70 - 1.30 mg/dL LAB CHEMISTRY METHOD 03/01/2025 12:08 PM [facility] eGFR 106 >=60 mL/min/1. 73m2 LAB CHEMISTRY METHOD 03/01/2025 12:08 PM [facility] Comment:Calculation based on the Chronic Kidney Disease Epidemiology Collaboration (CKD-EPI) equation refit without adjustment for race. BUN/Creatinine Ratio 36.6 LAB CHEMISTRY METHOD 03/01/2025 12:08 PM [facility] Calcium 8.7 8.5 - 10.5 mg/dL LAB CHEMISTRY METHOD 03/01/2025 12:08 PM [facility] AST (SGOT) 37 10 - 42 unit/L LAB CHEMISTRY METHOD 03/01/2025 12:08 PM [facility] ALT (SGPT) 64(H) 10 - 60 unit/L LAB CHEMISTRY METHOD 03/01/2025 12:08 PM [facility] Alkaline Phosphatase 105 42 - 121 unit/L LAB CHEMISTRY METHOD 03/01/2025 12:08 PM [facility] Total Protein 5.1(L) 6.0 - 8.0 g/dL LAB CHEMISTRY METHOD 03/01/2025 12:08 PM [facility] Albumin 2.7(L) 3.2 - 5.0 g/dL LAB CHEMISTRY METHOD 03/01/2025 12:08 PM [facility] Total Bilirubin 1.1 0.0 - 1.4 mg/dL LAB CHEMISTRY METHOD 03/01/2025 12:08 PM [facility] Blood Venous blood specimen / Unknown Venipuncture / Unknown 03/01/2025 5:29 AM EDT 03/01/2025 9:52 AM EDT us Fidencio Burroughs MD LAB BLOOD ORDERABLES Final Res ult [facility] [address] [place] [address], documented in this encounter Visit Diagnoses Diagnosis Encounter for other general examination documented in this encounter Additional Health Concerns Infection Onset Date Last Indicated Resolved Time ESBL 05/25/2025 05/25/2025 documented as of this encounter Care Teams Monomer Purification Operator Relationship Specialty Start Date End Date Cj Barber DO [address] [place] [phone] PCP - General 04/21/13 documented as of this encounter
--- OUTSIDE RECORDS SUMMARY | 2025-08-09 18:52 | XMS_ITS | Encounter Summary ---
Author Organization [facility] Address [address] [place] [address] Care Team Providers Care Spotter Name Role Phone Cj Barber DO Primary Care Provider [phone] Encounter Details Date Type Department Care Team (Late st Contact Info) Description 03/01/2025 Lab Requisition [facility] - Main Lab 299 [facility] [place] [address] Fidencio Burroughs MD [address] [place] [address] Encounter for other general examination Social History [...] albicans/du bliniensis( A) 03/07/2025 12:41 PM EDT [facility] Comment: Edited result: Previously reported as Yeast on 03/07/2025 at 1047 EDT. Swab Penile structure / Unknown 03/01/2025 5:22 AM EDT 03/01/2025 10:41 AM EDT Fidencio Burroughs MD LAB MICROBIOLOGY - GENERAL ORD ERABLES Final Result [facility] [address] [place] [address], * (ABNORMAL) Culture wound with gram stain (03/01/2025 5:22 AM EDT) Culture, Wound Proteus mirabilis(A) BAUDILIO 03/09/2025 9:56 AM EDT [facility] Comment: The organism value for this result has been updated. These results have been appended to the previously preliminary verified report. This is an edited result. Previous organism was Gram negative bacilli on 03/02/2025 at 1315 EDT. Edited result: Previously reported as Proteus species on 03/03/2025 at 1152 EDT. Culture, Wound Enterococcus faecalis(A) BAUDILIO 03/09/2025 9:56 AM EDT [facility] Comment: The organism value for this result has been updated. These results have been appended to the previously preliminary verified report. This is an edited result. Previous organism was Streptococcus Gamma non hemolytic on 03/06/2025 at 0911 EDT. Culture, Wound Pseudomonas aeruginosa(A) BAUDILIO 03/09/2025 9:56 AM EDT [facility] Comment: The organism value for this result has been updated. These results have been appended to the previously preliminary verified report. This is an edited result. Previous organism was Gram negative bacilli on 03/07/2025 at 1012 EDT. Gram Stain Result Moderate Polymorphonuclear leukocytes 03/09/2025 9:56 AM EDT [facility] Gram Stain Result Few Epithelial cells 03/09/2025 9:56 AM EDT [facility] Gram Stain Result No organisms seen 03/09/2025 9:56 AM EDT [facility] Swab Penile structure / Unknown [...] - GENERAL ORD ERABLES Final Result [facility] [address] [place] [address], documented in this encounter Visit Diagnoses Diagnosis Encounter for other general examination documented in this encounter Additional Health Concerns Infection Onset Date Last Indicated Resolved Time ESBL 05/25/2025 05/25/2025 documented as of this encounter Care Teams Spotter Relationship Specialty Start Date End Date Cj Barber DO [address] [place] [phone] PCP - General 04/21/13 documented as of this encounter
--- OUTSIDE RECORDS SUMMARY | 2025-08-09 18:53 | XMS_ITS | Encounter Summary ---
Author Organization [facility] Address [address] [place] [address] Care Team Providers Care Correctional Supply Supervisor Name Role Phone Cj Barber DO Primary Care Provider [phone] Encounter Details Date Type Department Care Team (Late st Contact Info) Description 01/19/2025 Lab Requisition [facility] - Main Lab 299 [facility] [place] [address] Fidencio Burroughs MD [address] [place] [address] Encounter for other general examination Social History [...] AM EST) WBC 6.3 4.8 - 10.8 /[facility] LAB HEMETOLOGY METHOD 01/19/2025 12:47 PM [facility]EN[facility]AL [...] MD LAB BLOOD ORDERABLES Final Res ult [facility] [address] [place] [address], [place] [phone] * (ABNORMAL) Comprehensive metabolic panel (01/19/2025 5:25 AM EST) Sodium 137 133 - 145 mmol/L LAB CHEMISTRY METHOD 01/19/2025 11:35 AM EST [facility] Potassium 4.2 3.5 [...] MD LAB BLOOD ORDERABLES Final Res ult [facility] [address] [place] [address], documented in this encounter Visit Diagnoses Diagnosis Encounter for other general examination documented in this encounter Additional Health Concerns Infection Onset Date Last Indicated Resolved Time ESBL 05/25/2025 05/25/2025 documented as of this encounter Care Teams Correctional Supply Supervisor Relationship Specialty Start Date End Date Cj Barber DO [address] [place] [phone] PCP - General 04/21/13 documented as of this encounter
--- OUTSIDE RECORDS SUMMARY | 2025-08-09 18:53 | XMS_ITS | Encounter Summary ---
Author Organization [facility] Address [address] [place] [address] Care Team Providers Care Program Schedule Clerk Name Role Phone Cj Barber DO Primary Care Provider [phone] Encounter Details Date Type Department Care Team (Late st Contact Info) Description 12/17/2024 Lab Requisition [facility] - Main Lab 299 [facility] [address] Horace Gu MD [address] [place] [phone] Urinary tract infection, site not specified Social [...] mirabilis(A ) BAUDILIO 12/19/2024 7:46 AM EST [facility] Comment: Edited result: Previously reported [...] MICROBIOLOGY - GENERAL TRISTEN GALAVIZ Final Result [facility] [address] [place] [address], documented in this encounter Visit Diagnoses Diagnosis Urinary tract infection, site not specified documented in this encounter Additional Health Concerns Infection Onset Date Last Indicated Resolved Time ESBL 05/25/2025 05/25/2025 documented as of this encounter Care Teams Program Schedule Clerk Relationship Specialty Start Date End Date Cj Barber DO [address] [place] [phone] PCP - General 04/21/13 documented as of this encounter
--- OUTSIDE RECORDS SUMMARY | 2025-08-09 18:53 | XMS_ITS | Encounter Summary ---
Author Organization [facility] Address [address] [place] [address] Care Team Providers Care Batch Unloader Name Role Phone Cj Barber DO Primary Care Provider [phone] Encounter Details Date Type Department Care Team (Late st Contact Info) Description 03/07/2025 Lab Requisition [facility] - Main Lab 299 [facility] [place] [address] Fidencio Burroughs MD [address] [place] [phone] Encounter for other general examination Social History [...] K/mcL LAB HEMETOLOGY METHOD 03/07/2025 1:40 PM [facility] RBC 3.70(L) 4.50 - 5.50 M/mcL LAB HEMETOLOGY METHOD 03/07/2025 1:40 PM [facility] Hemoglobin 11.5(L) 13.5 - 17.5 g/dL LAB HEMETOLOGY METHOD 03/07/2025 1:40 PM [facility] Hematocrit 34.9(L) 42.0 - 54.0 % LAB HEMETOLOGY METHOD 03/07/2025 1:40 PM [facility] MCV 93.8 79.0 - 98.0 FL LAB HEMETOLOGY METHOD 03/07/2025 1:40 PM [facility] MCH 30.9 27.0 - 32.0 pcg LAB HEMETOLOGY METHOD 03/07/2025 1:40 PM [facility] MCHC 33.0 32.0 - 37.0 g/dL LAB HEMETOLOGY METHOD 03/07/2025 1:40 PM [facility] RDW 14.7 11.0 - 15.0 % LAB HEMETOLOGY METHOD 03/07/2025 1:40 PM [facility] Platelets 03/07/2025 1:40 PM [facility] Comment:Not measured. Unable to quantitate due to platelet clumping MPV 9.2 7.0 - 11.0 FL LAB HEMETOLOGY METHOD 03/07/2025 1:40 PM [facility] NRBC 0.0 <1.0 % LAB HEMETOLOGY METHOD 03/07/2025 1:40 PM [facility] NRBC Absolute 0.00 <0.10 K/mcL LAB HEMETOLOGY METHOD 03/07/2025 1:40 PM [facility] Blood Venous blood specimen / Unknown Venipuncture / Unknown 03/07/2025 5:15 AM EDT 03/07/2025 10:19 AM EDT Fidencio Burroughs MD LAB BLOOD ORDERABLES Final Res ult [facility] [address] [place] [address], * (ABNORMAL) Comprehensive metabolic panel (03/07/2025 5:15 [...] 27.5 LAB CHEMISTRY METHOD 03/07/2025 12:39 PM T [facility] Calcium 8.6 8.5 - 10.5 mg/dL LAB CHEMISTRY METHOD 03/07/2025 12:39 PM [facility] AST (SGOT) 32 10 - 42 unit/L LAB CHEMISTRY METHOD 03/07/2025 12:39 PM [facility] ALT (SGPT) 48 10 - 60 unit/L LAB CHEMISTRY METHOD 03/07/2025 12:39 PM [facility] Alkaline Phosphatase 116 42 - 121 unit/L LAB CHEMISTRY METHOD 03/07/2025 12:39 PM [facility] Total Protein 5.3(L) 6.0 - 8.0 g/dL LAB CHEMISTRY METHOD 03/07/2025 12:39 PM [facility] Albumin 2.8(L) 3.2 - 5.0 g/dL LAB CHEMISTRY METHOD 03/07/2025 12:39 PM [facility] Total Bilirubin 1.0 0.0 - 1.4 mg/dL LAB CHEMISTRY METHOD 03/07/2025 12:39 PM [facility] Blood Venous blood specimen / Unknown Venipuncture / Unknown 03/07/2025 5:15 AM EDT 03/07/2025 10:19 AM EDT us Fidencio Burroughs MD LAB BLOOD ORDERABLES Final Res ult [facility] [address] [place] [address], documented in this encounter Visit Diagnoses Diagnosis Encounter for other general examination documented in this encounter Additional Health Concerns Infection Onset Date Last Indicated Resolved Time ESBL 05/25/2025 05/25/2025 documented as of this encounter Care Teams Batch Unloader Relationship Specialty Start Date End Date Cj Barber DO [address] [place] [phone] PCP - General 04/21/13 documented as of this encounter
--- OUTSIDE RECORDS SUMMARY | 2025-08-09 18:53 | XMS_ITS | Clinical Summary ---
Author Organization [facility] [employer] Address [address] [place] [address] Phone Care Team Providers Care Respiratory Therapy Technician Name Role Phone Cj Barber DO Primary Care Provider Allergies No known active allergies Medications aspirin 81 mg EC tablet Take 1 tablet (81 mg total) by mouth 1 (one) time each day. Active atorvastatin (LIPITOR) 80 mg tablet Take 1 tablet (80 mg total) by mouth. Active metoprolol succinate (TOPROL-XL) 25 mg 24 hr tablet Take 1 tablet (25 mg total) by mouth. Active nitroglycerin (NITROSTAT) 0.[address] 1 tablet (0.4 mg total) under the tongue every 5 (five) minutes if needed for chest pain. Up to 3 doses/15 minutes. If chest pain is not relieved 5 minutes after the second dose, take a third dose and call 9-1-1. 25 tablet 1 5 Active isosorbide mononitrate (IMDUR) 30 mg 24 hr tablet Take 1 tablet (30 mg total) by mouth 1 (one) time each day. Do not crush or chew. 90 tablet 2 5 Active warfarin (COUMADIN) 5 mg tabletIndicatio ns:PAF (paroxysmal atrial fibrillation) (CMS/HCC V24, CMS/HCC V28),Acute pulmonary embolism, unspecified pulmonary embolism type, unspecified whether acute cor pulmonale present (CMS/HCC V24, CMS/HCC V28) Take by mouth 1 (one) time each day with dinner. Pt has visiting nurse that comes and check his INR Active finasteride (PROSCAR) 5 mg tablet Take 1 tablet (5 mg total) by mouth 1 (one) time each day. Do not crush, chew, or split. 08/09/20 Discontinu ed(Prescri kole Discontinu ed) tamsulosin (FLOMAX) 0.4 mg 24 hr capsule Take 1 capsule (0.4 mg total) by mouth 1 (one) time each day with breakfast. Capsules should be taken 30 minutes following the same meal each day. 08/09/20 Discontinu ed(Prescri kole Discontinu ed) furosemide (LASIX) 20 mg tablet Take 1 tablet (20 mg total) by mouth 1 (one) time each day. 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 08/09/20 Discontinu ed(Prescri kole Discontinu ed) Active Problems Problem Noted Date Diagnosed Date [...] V24, CMS/HCC V28) 04/20/2025 Assessment & Plan (08/09/2025 2:37 PM EDT): Paroxysmal atrial fibrillation. Asymptomatic. CHADSVASc - 6. Continue with metoprolol and warfarin. Assessment & Plan (04/27/2025 4:33 PM EDT): Paroxysmal atrial fibrillation. Asymptomatic. CHADSVASc - 6. Continue with metoprolol and warfarin. Orders: ECG 12 lead Acute pulmonary embolism (CMS/HCC V24, CMS/HCC V 28) 04/20/2025 Overview (04/27/2025): January 2025 - admitted to [facility] with gait imbalance found to have a UTI, paroxysmal atrial fibrillation and provoked acute pulmonary embolism of the left lower lobe; transferred to [facility] and felt to be elevated risk for surgery therefore recommended conservative therapy for now and transitioned patient to warfarin and aspirin Assessment & Plan (08/09/2025 2:37 PM EDT): Continue with warfarin for at least three months for PE, but would continue with warfarin anyways for atrial fibrillation. Continue aspirin indefinitely. Assessment & Plan (04/27/2025 4:33 PM EDT): Continue with warfarin for at least three months for PE, but would continue with warfarin anyways for atrial fibrillation. Continue aspirin indefinitely. Hypercholesterolemia 07/24/2022 Assessment & Plan (08/09/2025 2:37 PM EDT): Continue with atorvastatin. Assessment & Plan (04/27/2025 4:33 PM EDT): Continue with atorvastatin. Assessment & Plan (11/30/2024 12:28 PM EST): Longstanding hypercholesterolemia has been treated with high-dose atorvastatin.` Coronary artery disease invo lving assiniboine and sioux coronary artery of assiniboine and sioux heart without angina pectoris 06/11/2022 Overview (04/27/2025): 2003 - status post left circumflex artery coronary [...] systolic pressure 55 mmHg Assessment & Plan (08/09/2025 2:37 PM EDT): Catheterization from 2011 during inferior [...] exercise and weight management. Assessment & Plan (04/27/2025 4:33 PM EDT): [...] stenting in the setting of an inferior MD in 2011. He has not had overt [...] Encounters Date Type Department Care Team Description 08/09/2025 1:10 PM EDT Office Visit 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; Hypercholesterolemia 05/25/2025 Lab Requisition [facility] [address] [facility] [place] [id number] Hilton Saavedra PA Urinary tract infection, site [...] Mass Index 26.26 08/09/2025 1:26 PM EDT Plan of Treatment Health Maintenance Due Date [...] mirabilis ESBL(A) BAUDILIO 05/29/2025 8:45 AM EDT [facility] Comment: THIS ORGANISM IS POSITIVE [...] Pseudomonas aeruginosa(A) BAUDILIO 05/29/2025 8:45 AM EDT [facility] Comment: The organism value for this result has been updated. These results have been appended to the previously preliminary verified report. This is an edited result. Previous organism was Gram negative bacilli on 05/27/2025 at 1022 EDT. Urine Urine specimen obtained by clean catch procedure / Unknown 05/25/2025 05/25/2025 5:52 PM EDT Narrative [facility] - 05/29/2025 8:45 AM EDT [...] Susceptible Pseudomonas aeruginosa Cefepime DISK DIFFUSION Susceptible [facility] MICROBIOLOGY - GENERAL TRISTEN GALAVIZ Final Result [facility] [address] [place] [address], * (ABNORMAL) Comprehensive metabolic panel (03/07/2025 5:15 AM EDT) [facility] Sodium 137 133 - 145 mmol/L LAB CHEMISTRY METHOD 03/07/2025 12:39 PM EDT [facility] Potassium 3.8 3.5 - 5.5 mmol/L LAB CHEMISTRY METHOD 03/07/2025 12:39 PM EDT [facility] Chloride 101 96 - 110 mmol/L LAB CHEMISTRY METHOD 03/07/2025 12:39 PM [facility] CO2 32 21 - 32 mmol/L LAB CHEMISTRY METHOD 03/07/2025 12:39 PM [facility] Anion Gap 4 3 - 11 LAB CHEMISTRY METHOD 03/07/2025 12:39 PM [facility] Glucose 77 70 - 100 mg/dL LAB CHEMISTRY METHOD 03/07/2025 12:39 PM [facility] BUN 14 5 - 25 mg/dL LAB CHEMISTRY METHOD 03/07/2025 12:39 PM [facility] Creatinine 0.51(L) 0.70 - 1.30 mg/dL LAB CHEMISTRY METHOD 03/07/2025 12:39 PM [facility] eGFR 99 >=60 mL/min/1. 73m2 LAB CHEMISTRY METHOD 03/07/2025 12:39 PM [facility] Comment:Calculation based on the Chronic Kidney Disease Epidemiology Collaboration (CKD-EPI) equation refit without adjustment for race. BUN/Creatinine Ratio 27.5 LAB CHEMISTRY METHOD 03/07/2025 12:39 PM [facility] Calcium 8.6 8.5 - 10.5 mg/dL LAB CHEMISTRY METHOD 03/07/2025 12:39 PM [facility] AST (SGOT) 32 10 - 42 unit/L LAB CHEMISTRY METHOD 03/07/2025 12:39 PM [facility] ALT (SGPT) 48 10 - 60 unit/L LAB CHEMISTRY METHOD 03/07/2025 12:39 PM [facility] Alkaline Phosphatase 116 42 - 121 unit/L LAB CHEMISTRY METHOD 03/07/2025 12:39 PM [facility] Total Protein 5.3(L) 6.0 - 8.0 g/dL LAB CHEMISTRY METHOD 03/07/2025 12:39 PM EDT [facility] Albumin 2.8(L) 3.2 - 5.0 g/dL LAB CHEMISTRY METHOD 03/07/2025 12:39 PM EDT [facility] Total Bilirubin 1.0 0.0 - 1.4 mg/dL LAB CHEMISTRY METHOD 03/07/2025 12:39 PM EDT [facility] Blood Venous blood specimen / Unknown Venipuncture / Unknown 03/07/2025 5:15 AM EDT 03/07/2025 10:19 AM EDT us Fidencio Burroughs MD LAB BLOOD ORDERABLES Final Res ult [facility] [address] [place] [address], [place] [phone] from Last 3 Months or Most Recently Relevant to Health Maintenance Additional Health Concerns Infection Onset Date Last Indicated ESBL 05/25/2025 05/25/2025 Insurance [employer] Care Teams Respiratory Therapy Technician Relationship Specialty Start Date End Date Cj Barber DO [address] [place] [phone] PCP - General 04/21/13
== END 2025-08-09 16:08 | disposition home or self-care (01) ==
PROVIDERS: PCP Internal Medicine; Visit Provider Physician Assistant
DX: I95.9 Hypotension, unspecified (principal)

== ENCOUNTER → 2025-08-09 15:33 | Outpatient (BNVA) | payer MEDICARE, SELFPAY | PROVIDERS: PCP Internal Medicine; Visit Provider Physician Assistant | DX: I95.9 Hypotension, unspecified (principal) | CPT/HCPCS: 99212 ==

== ENCOUNTER 2025-08-09 16:38 | Emergency (ER) | payer MEDICARE, SELFPAY ==
[2025-08-09 16:45] VITALS: BP 110/57; PULSE 78; RESP 18; TEMP 36.5; O2SAT 97; BMI 26.1
--- NOTE | 2025-08-09 16:47 | ED_ITS ---
HPI - General Adult General Chief complaint: Recheck/Abnormal Lab/Rx Stated complaint: Low blood pressure/ sent from Time Seen by Provider: 08/09/25 19:14 Source: patient, family (), RN notes reviewed and old records reviewed Mode of arrival: ambulatory Limitations: no limitations History of Present Illness ED Provider: Margoth HPI narrative: 85-year-old male past medical history significant for hypotension, anemia, hyperlipidemia, history of atrial fibrillation on warfarin, GERD, coronary artery disease, BPH, UTI as presents for evaluation of a rash to his legs. Patient had a routine Cardiology appointment this afternoon and was leaving that appointment around 130. He went to urgent care to be evaluated for a rash that he has had for over a month, Apparently at urgent care he was found to be hypotensive at 84/50 and was sent to the ER for evaluation The patient denies any lightheadedness, dizziness, shortness of breath, chest pain or palpitations. He reports his blood pressure at the cardiology office was normal for him at 110/60 The patient reports that his rash initially started in his right lower leg and was itchy. In his not painful at all in his only on his bennett He has a similar but milder rash in the left lower leg No calf pain or worsening leg swelling. He denies any fevers or chills His sister has a history of psoriasis but the patient does not He has some weeping from the right leg No other complaints or concerns at this time Related Data Home Medications ?Medication ?Instructions ?Recorded ?Confirmed timolol maleate 0.5 % eye drops 1 drp ophthalmic (eye) DAILY 10/08/21 08/04/25 aspirin 81 mg tablet,delayed 81 mg PO DAILY 01/31/25 0 08/04/25 release nitroglycerin 0.4 mg sublingual 0.4 mg sublingual Q5M PRN Angina 01/31/25 08/04/25 tablet clotrimazole 1 % topical cream 1 appl topical BID 02/2308/04/25 isosorbide mononitrate 30 mg 30 mg PO DAILY 03/29/25 0 08/04/25 tablet,extended release 24 hr Previous Rx's ?Medication ?Instructions ?Recorded atorvastatin 80 mg tablet 80 mg PO BEDTIME #90 tabs metoprolol succinate 25 mg 25 mg PO DAILY #90 tabs 01/18 tablet,extended release 24 hr warfarin 1 mg tablet 5 mg PO DAILY 90 days #450 t abs 07/26/25 cephalexin 500 mg capsule 500 mg PO QID #28 caps 08/09 hydrocortisone 2.5 % topical 1 appl topical BID PRN ra sh 1 week 08/09/25 ointment #28.35 grams Allergies Allergy/AdvReac Type Severity Reaction Status Date / Time No Known Allergies (No Known Allergy Verified 08/09/25 16:46 Allergies*) Review of Systems 2 Constitutional: Constitutional: Denies body ache(s), Denies chills, Denies fever(s) and Denies headache(s) Eyes: Eyes: Denies blurry vision ENT: Denies vertigo, Denies dizziness, Denies dry mouth and Denies headache(s) Cardiovascular: Cardiovascular: Denies chest pain, Denies syncope, Denies lightheadedness and Denies dyspnea on exertion Respiratory: Respiratory: Denies cough and Denies dyspnea on exertion Gastrointestinal: Gastrointestinal: Denies abdominal pain, Denies nausea and Denies vomiting Musculoskeletal: Musculoskeletal: Denies back pain, Denies arthralgias, Denies joint swelling and Denies limited range of motion Integumentary/Breasts: Skin/Breast: Reports erythema and Reports rash Neurologic: Denies vertigo, Denies dizziness, Denies syncope and Denies headache(s) Psychiatric: Psychiatric: Denies anxiety [facility] Past Medical History Medical History (Updated 08/09/25 @ 19:45 by Jona Justin) Unspecified cord compression Anemia Hyperlipidemia Gross hematuria Urinary retention Enlarged prostate Pre-op evaluation Lower extremity weakness Physical deconditioning Muscular deconditioning Bilateral arm weakness DVT (deep venous thrombosis) On Coumadin for atrial fibrillation Chronic indwelling Nolan catheter Weakness Hospital discharge follow-up Dyspnea on exertion Vitamin D deficiency Vasovagal syncope Elevated PSA GERD (gastroesophageal reflux disease) Mild hypercholesterolemia Hypertension Coronary artery disease Walker as ambulation aid BPH (benign prostatic hyperplasia) Indwelling Nolan catheter calcification UTI (urinary tract infection) NSTEMI (non-ST elevated myocardial infarction) 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 Mother No problems noted. Social History Social History Household Members: Spouse and Children Housing: House Do you presently have visiting nurse or other home services: Yes Unable to assess alcohol history related to: Unknown Alcohol intake: current Alcohol intake frequency: does not drink Patient Tobacco Use Status: Former Tobacco user Smoked in Last 30 Days: No Use of substances other than those prescribed or required for medical reasons: No Advance Directives: Yes Advance Directives on File: Yes Advance Directives Date on File: 02/10/25 service: No Current occupational status: retired Current occupational exposures/hazards: No Cognitive needs: Yes (walker) Hearing needs: Yes (b/l hearing aids) Vision needs: Yes (rx glasses) Physical Exam ED Vital Signs: Vital Signs - 24 hr 08/09/25 16:45 08/09/25 18:38 Temperature 97.7 F 97.8 F Pulse Rate 78 66 Respiratory Rate 18 19 Blood Pressure 110/57 L 130/70 Pulse Oximetry 97 97 Oxygen Delivery Method Room Air Room Air BMI result Body Mass Index 26.1 Const General: healthy appearing, comfortable, no acute distress, alert and awake Nutritional Appearance: well nourished Orientation/consciousness: patient oriented x3 HENMT Head: Yes normocephalic and Yes atraumatic Eyes Eyelids: Yes eyelids normal Conjunctivae: conjunctivae normal Sclerae: sclerae normal Corneas: corneas normal Pupils: Equal, round and reactive pupils present EOM: EOMs intact bilaterally Neck Neck: Yes full ROM Resp Effort & Inspection: normal respiratory effort, able to speak in complete sentences and not labored Cardio Rate: regular rate Rhythm: regular rhythm GI Inspection: No distended Palpation (GI): Soft to palpation, not firm, nontender, no guarding and not rigid Skin Other: The patient has some erythema mostly to the right lower extremity bennett area. There is a small area of erythema to the left lower extremity on the bennett. The right side has some lichenification with some apparent yellow is crusting discharge. Both lower extremities are warm to the touch over the bennett. No calf tenderness, negative Homans sign, no palpable cords. General skin exam: elasticity normal Neuro General: patient oriented x3 Cranial nerves: Yes Equal, round and reactive pupils present and Yes Bilaterally intact EOM present Cognition (Neuro): normal cognition Course Course Course Narrative: This is an RME: Additional HPI, ROS, PE not included below will be deferred to primary provider. RME assessment and note performed by: Mari Esparza PA-C This is a 85 y/o M, with a hx of NSTEMI, HTN, HLD, who rpesents to the ER with complaints of leg sores x months, and was seen at an urgent care where he was found to be very hypotensive 80s over 40s. The time he was complaining of some dizziness and lightheadedness, no fevers. Patient states that he is feeling well today no current complaints. Does report that he has some crusting noted to his bilateral lower extremities. Plan: Labs, EKG, UA, further ER eval needed Medical Decision Making Medical Decision Making MDM Narrative: 85-year-old male presents for evaluation of a rash. He was found to be hypotensive at urgent Care. He reports his baseline blood pressure is about 110/60. He is not complaining of any lightheadedness, dizziness, weakness or shortness of breath that would be symptomatic of hypotension. At urgent care his blood pressure with documented at 85 over 39. This was not replicated in the ER on 3 separate blood pressures over 2 hour period. The patient has no leukocytosis or fever to suggest an infectious cause of hypotension or sepsis. He was also seen by his spring crater this afternoon and the patient had an appropriate blood pressure at that time. The patient's labs are significant for a mild normocytic anemia which she has had in the past, platelet count is slightly low at 111 which she has also had in the past. The patient is on warfarin for his history of AFib and DVT/PE. No significant chemistry abnormalities warranting intervention. On exam the patient does have some erythema with increased warmth, there was no obvious abscess. His history and exam is most consistent with an inflammatory condition though I suspect he may have a superimposed cellulitis to the right lower extremity. Given that his symptoms started over a month ago, it may have started as a psoriatic rash. We will cover with hydrocortisone cream and cephalexin. He will follow up with primary doctor. He is currently anticoagulated has no calf pain or tenderness. His last INR was 5 days ago and was therapeutic at 2.5. Differential Diagnosis Differential Diagnoses: The differential diagnosis associated with the presentation includes Cellulitis Dermatitis Psoriasis Sepsis less likely Hypotension Lab Data MDM Lab Attestation statement: I reviewed the patient's lab results. As above 08/09/25 18:26 08/09/25 18:26 Labs: Lab Results 08/09/25 Range/Units 18:26 WBC 7.5 (4.8-10.8) X10*3/uL RBC 4.19 L (4.60-5.80) X10*6/uL Hgb 11.6 L (14.0-18.0) g/dl Hct 34.7 L (42.0-52.0) % MCV 82.8 (80.0-98.0) fL MCH 27.7 (27.0-33.0) pg MCHC 33.4 (31.0-36.0) g/dl RDW 14.9 (11.0-16.0) % Plt Count 111 L D (160-400) X10*3/uL MPV 9.1 L (9.4-12.4) fL Immature Gran % (Auto) 0.3 (0.0-0.4) % Neut % (Auto) 63.0 (45-73) % Lymph % (Auto) 19.9 L (20-40) % [place] % (Auto) 14.5 H (2-11) % Eos % (Auto) 1.6 (0-4) % Baso % (Auto) 0.7 (0-2) % Lymph # (Auto) 1.5 (1.2-4.9) X10*3/uL [place] # (Auto) 1.1 (0.1-1.2) X10*3/uL Eos # (Auto) 0.1 (0.0-0.4) X10*3/uL Baso # (Auto) 0.1 (0.0-0.2) X10*3/uL Abs Immat Gran (auto) 0.02 (0.00-0.03) X10*3/uL Absolute Neuts (auto) 4.7 (2.0-8.3) x10*3/uL Absolute Nucleated RBC 0.000 (0.0-0.012) X10*3/uL Nucleated RBC % (auto) 0.0 (0.0-0.2) /100WBC Sodium 138 (135-145) mmol/L Potassium 4.0 (3.3-5.1) mmol/L Chloride 106 (96-108) mmol/L Carbon Dioxide 27 (22-29) mmol/L Anion Gap 9 L (12-20) BUN 15 (9-16) mg/dL Creatinine 0.61 (0.5-1.4) mg/dL Estim Creat Clear Calc 72.7 Estimated GFR > 60 Random Glucose 101 (60-115) mg/dL Calcium 8.7 D (8.4-10.2) mg/dL Magnesium 2.2 (1.6-2.6) mg/dL Total Bilirubin 0.4 (0.0-1.0) mg/dL Direct Bilirubin 0.2 (0.0-0.5) mg/dL AST 25 (5-37) U/L ALT 19 (0-40) U/L Alkaline Phosphatase 116 (39-117) U/L Troponin I High Sens < 2.7 (<3.5-35.0) ng/L Total Protein 6.0 L (6.5-8.0) g/dL Albumin 3.5 (3.5-5.0) g/dL Tests considered The following testing was considered but not selected: Consider venous ultrasound of the left lower extremity but I have a low suspicion for DVT and the patient is anticoagulated, this was deferred Prescription Management I considered prescription management with: Antibiotic Discharge Plan Discharge Clinical Impression: Acute dermatitis Patient Disposition: Home, Self-Care Instructions: Dermatitis (ED) Additional Instructions: Your workup in the ER today was reassuring. Your blood pressure was around your baseline. I do not think that the rash on your legs is contributing to your low blood pressure that was seen at urgent care. I think your rash is most likely an inflammatory condition such as psoriasis However we are also giving you antibiotics in case there is a superimposed infection as well Use the hydrocortisone twice daily for 1 week to the affected area. Take the cephalexin 4 times daily for 1 week Follow up with your primary doctor, return for new or worsening symptoms I recommend seeing a junior web designer if your symptoms do not improve Prescriptions: New hydrocortisone 2.5 % ointment 1 appl topical BID PRN (Reason: rash) 7 Days Qty: 28.35 0RF cephalexin 500 mg capsule 500 mg PO QID Qty: 28 0RF No Action atorvastatin 80 mg tablet 80 mg PO BEDTIME Qty: 90 1RF metoprolol succinate 25 mg tablet extended release 24 hr 25 mg PO DAILY Qty: 90 1RF timolol maleate 0.5 % drops 1 drp ophthalmic (eye) DAILY aspirin 81 mg tablet,delayed release (DR/EC) 81 mg PO DAILY nitroglycerin 0.4 mg tablet, sublingual 0.4 mg sublingual Q5M PRN (Reason: Angina) Patient Comments: pt states does not use anymore Rx Instructions: do not exceed 3 doses per episode clotrimazole 1 % cream 1 appl topical BID isosorbide mononitrate 30 mg tablet extended release 24 hr 30 mg PO DAILY warfarin 1 mg tablet 5 mg PO DAILY 90 Days Qty: 450 1RF Protocol: Dose Management Condition: Friday (Week One) Dose/Route: 9 mg Instruction: 9 x 1 mg tablets Condition: Friday Dose/Route: 6 mg Instruction: 6 x 1 mg tablets Condition: Friday Dose/Route: 6 mg Instruction: 6 x 1 mg tablets Condition: Friday Dose/Route: 6 mg Instruction: 6 x 1 mg tablets Condition: Dose/Route: 6 mg Instruction: 6 x 1 mg tablets Condition: Friday Dose/Route: 6 mg Instruction: 6 x 1 mg tablets Condition: Friday Dose/Route: 6 mg Instruction: 6 x 1 mg tablets Condition: Friday (Week Two) Dose/Route: 9 mg Instruction: 9 x 1 mg tablets Condition: Friday Dose/Route: 6 mg Instruction: 6 x 1 mg tablets Condition: Friday Dose/Route: 6 mg Instruction: 6 x 1 mg tablets Condition: Friday Dose/Route: 6 mg Instruction: 6 x 1 mg tablets Condition: Dose/Route: 6 mg Instruction: 6 x 1 mg tablets Condition: Friday Dose/Route: 6 mg Instruction: 6 x 1 mg tablets Condition: Friday Dose/Route: 6 mg Instruction: 6 x 1 mg tablets Protocol Text: Adjustment Start Date: 08/04/25 INR Value: 2.5 INR Date: 08/04/25 Recheck Date: 08/18/25 Print Language: Kinyarwanda
--- NOTE | 2025-08-09 16:48 | ECG_ITS ---
Test Reason : abn labs Blood Pressure : */* mmHG Vent. Rate : 65 BPM Atrial Rate : 65 BPM P-R Int : 138 ms QRS Dur : 86 ms QT Int : 380 ms P-R-T Axes : 32 11 23 degrees QTcB Int : 395 ms Sinus rhythm with Premature atrial complexes Otherwise normal ECG When compared with ECG of 21-Jul-2025 14:39, Premature atrial complexes are now Present Referred By: Mari Esparza Electronically Signed By: YULI MOMIN
[2025-08-09 18:30] LABS: MANUAL DIFF FLAG NO
[2025-08-09 18:33] LABS: Hematocrit 34.7 % (42.0-52.0); Hemoglobin 11.6 g/dl (14.0-18.0); Imm Gran Abs Auto 0.02 X10*3/uL (0.00-0.03); Imm Gran Pct Auto 0.3 % (0.0-0.4); Lymphocytes Absolute Auto 1.5 X10*3/uL (1.2-4.9); Mean Corpuscular HGB Conc 33.4 g/dl (31.0-36.0); Mean Corpuscular Hemoglobin 27.7 pg (27.0-33.0); Mean Corpuscular Volume 82.8 fL (80.0-98.0); NRBC Abs Auto 0.000 X10*3/uL (0.0-0.012); NRBC Pct Auto 0.0 /100WBC (0.0-0.2); Platelet Count 111 X10*3/uL (160-400); Red Blood Count 4.19 X10*6/uL (4.60-5.80); White Blood Count 7.5 X10*3/uL (4.8-10.8)
[2025-08-09 18:38] VITALS: BP 130/70; PULSE 66; RESP 19; TEMP 36.6; O2SAT 97
[2025-08-09 18:46] LABS: Alanine Aminotransferase 19 U/L (0-40); Albumin Level 3.5 g/dL (3.5-5.0); Alkaline Phosphatase 116 U/L (39-117); Anion Gap 9 (12-20); Aspartate Amino Transferase 25 U/L (5-37); Blood Urea Nitrogen 15 mg/dL (9-16); Calcium 8.7 mg/dL (8.4-10.2); Carbon Dioxide 27 mmol/L (22-29); Chloride 106 mmol/L (96-108); Creatinine Clr Calc Pharmacy 72.7; Estimated Glomerular Filt Rate > 60; Magnesium 2.2 mg/dL (1.6-2.6); Potassium 4.0 mmol/L (3.3-5.1); Sodium 138 mmol/L (135-145); Total Protein 6.0 g/dL (6.5-8.0)
[2025-08-09 18:54] LABS: Troponin-I High Sensitivity < 2.7 ng/L (<3.5-35.0)
[2025-08-09 20:24] VITALS: BP 130/70; PULSE 66; RESP 19; TEMP 36.6; O2SAT 97
== END 2025-08-09 20:25 | disposition home or self-care (01) ==
PROVIDERS: Physician Assistant Medical; Emergency Provider Student in an Organized Health Care Education/Training Program; PCP Internal Medicine
DX: L30.9 Dermatitis, unspecified (principal); R21 Rash and other nonspecific skin eruption; I48.91 Unspecified atrial fibrillation; Z79.01 Long term (current) use of anticoagulants; K21.9 Gastro-esophageal reflux disease without esophagitis; I25.10 Atherosclerotic heart disease of native coronary artery without angina pectoris; E78.5 Hyperlipidemia, unspecified; Z79.899 Other long term (current) drug therapy; Z87.440 Personal history of urinary (tract) infections
CPT/HCPCS: 36415; 80048; 80076; 83735; 84484; 85025; 93005; 99283; 99284

== ENCOUNTER → 2025-08-09 16:48 | Outpatient (BNV) | payer MEDICARE, SELFPAY | PROVIDERS: Emergency Provider Student in an Organized Health Care Education/Training Program; PCP Internal Medicine; Visit Provider Internal Medicine | DX: I49.1 Atrial premature depolarization (principal) | CPT/HCPCS: 93010 ==

== ENCOUNTER 2025-08-18 10:23 | Outpatient (AMB) | payer MEDICARE, SELFPAY ==
[2025-08-18 10:38] LABS: Prothrombin Time Whole Bld POC 32.3 sec (11.1-13.5); ~PT, ~INR - Anti Coag Clinic 2.7 (0.9-1.1)
--- NOTE | 2025-08-18 10:39 | MHC.OFFVISCO ---
Intake Intake Visit Reasons: Anticoagulation Allergies No Known Allergies (No Known Allergies*) Allergy (Verified 08/18/25 10:29) Medication List - Last Reconciled 08/18/25 by Fabienne Armstrong RN aspirin 81 mg PO DAILY atorvastatin 80 mg PO BEDTIME cephalexin 500 mg PO QID clotrimazole 1% 1 appl topical BID hydrocortisone 2.5% 1 appl topical BID PRN 1 week isosorbide mononitrate ER 30 mg PO DAILY metoprolol succinate ER 25 mg PO DAILY nitroglycerin 0.4 mg sublingual Q5M PRN timolol maleate 0.5% 1 drp ophthalmic (eye) DAILY warfarin 5 mg See Protocol PO DAILY 90 days Nursing Note INR: 2.7 in therapeutic range of 2-3 Pt states he will be taking his last dose of Cephalexin today for a rash on his lower leg. He did not notify [facility] of the new med. Also using Hydrocortisone oint 2.5%. He started the meds on 08/09/25. No rise in INR with these meds. Medications and supplements reviewed No changes in health, diet, medications, or supplements, Denies any signs and symptoms of bleeding or bruising or clotting. Bleeding, bruising, clotting discussed Nutritional guidance given Dose: keep same dose of 6mg X 6 days and 9mg X 1 day F/U INR: 4 weeks Patient verbalizes understanding of instructions given Anti-Coag Initial Assessment Social Hx Patient Tobacco Use Status: Former Tobacco user alcohol intake: current Alcohol intake frequency: does not drink Cardiovascular Hx: HTN, [place] and Arrhythmias Lung Disease HX: DVT/PE Musculoskeletal Hx: Arthritis Blood Disorder Hx: Hyperlipidemia Hx: Prostate Cancer HX: No Psych. 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
== END 2025-08-18 10:46 | disposition home or self-care (01) ==
LOC: HO.ACS 10:23
PROVIDERS: PCP Internal Medicine; Visit Provider Internal Medicine Medical Oncology
DX: Z79.01 Long term (current) use of anticoagulants (principal)

== ENCOUNTER → 2025-08-18 10:23 | Outpatient (BNVA) | payer MEDICARE, SELFPAY | PROVIDERS: PCP Internal Medicine; Visit Provider Internal Medicine Medical Oncology | DX: I82.409 Acute embolism and thrombosis of unspecified deep veins of unspecified lower extremity (principal); I48.91 Unspecified atrial fibrillation; I26.99 Other pulmonary embolism without acute cor pulmonale; Z79.01 Long term (current) use of anticoagulants; Z51.81 Encounter for therapeutic drug level monitoring | CPT/HCPCS: 85610; 99211 ==

== ENCOUNTER 2025-08-25 13:53 | Outpatient (AMB) | payer MEDICARE, SELFPAY ==
[2025-08-25 13:57] VITALS: BP 118/62; PULSE 81; RESP 20; TEMP 36.3; O2SAT 97; BMI 27.7
--- NOTE | 2025-08-25 13:57 | MHC.PC.OV ---
Vital Signs 08/25/25 13:57 Height 5 ft 4 in Weight 161 lb 4 oz BMI 27.7 BP 118/62 Blood Pressure Location Rt brachial Position Sitting Respiration 20 Pulse 81 Pulse Source Pulse Oximeter Temp 97.4 F Temp Source Temporal Artery Scan Pulse Oximetry (%) 97 Oxygen Delivery Method Room Air Oxygen Flow Rate 97 Intake Visit Reasons: Ed F/U [facility] Intake Note: Rash on legs spreading. Has now spread to abdomen and other areas. Rash is red and itchy Accompanied by: Spouse Allergies No Known Allergies (No Known Allergies*) Allergy (Verified 08/25/25 16:40) Medication List - Last Reconciled 08/25/25 by Haritha Ni PA-C aspirin 81 mg PO DAILY atorvastatin 80 mg PO BEDTIME clotrimazole 1% 1 appl topical BID hydrocortisone 2.5% 1 appl topical BID PRN 1 week isosorbide mononitrate ER 30 mg PO DAILY metoprolol succinate ER 25 mg PO DAILY mupirocin 2% 1 appl topical BID nitroglycerin 0.4 mg sublingual Q5M PRN timolol maleate 0.5% 1 drp ophthalmic (eye) DAILY warfarin 6 mg See Protocol PO DAILY warfarin 9 mg PO DAILY Tobacco use date assessed: 08/25/25 Fall risk assessment: 2 + Falls in past year Last assessed Fall Risk: 08/25/25 Dental Screening Dental Screen Date: 08/25/25 Did you have a dental visit in the last 12 months?: No HPI Ed F/U [facility] HPI Details The patient is an 85-year-old male presenting with a rash. The rash was initially evaluated in the emergency department, where it was noted to be potentially infected. The patient has been on oral antibiotics and topical steroids, but the rash appears to be infected with warmth and yellow exudate. The patient also experienced episodes of hypotension, particularly noted during a visit to urgent care, where blood pressure readings were consistently low. The patient's blood pressure is usually around 110-120 mmHg, but it was significantly lower during the urgent care visit. Social History - Exercise: Patient walks in the driveway. [facility] Medical History Cellulitis Dermatitis Wound of right leg Unspecified cord compression Anemia Hyperlipidemia Gross hematuria Urinary retention Enlarged prostate Pre-op evaluation Lower extremity weakness Physical deconditioning Muscular deconditioning Bilateral arm weakness DVT (deep venous thrombosis) On Coumadin for atrial fibrillation Chronic indwelling Nolan catheter Weakness Hospital discharge follow-up Dyspnea on exertion Vitamin D deficiency Vasovagal syncope Elevated PSA GERD (gastroesophageal reflux disease) Mild hypercholesterolemia Hypertension Coronary artery disease Walker as ambulation aid BPH (benign prostatic hyperplasia) Indwelling Nolan catheter calcification UTI (urinary tract infection) NSTEMI (non-ST elevated myocardial infarction) 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 Mother No problems noted. Social History Household Members: Spouse and Children Housing: House Do you presently have visiting nurse or other home services: Yes Alcohol intake: current Alcohol intake frequency: does not drink Patient Tobacco Use Status: Former Tobacco user Advance Directives Date on File: 02/10/25 service: No Current occupational status: retired Current occupational exposures/hazards: No Cognitive needs: Yes (walker) Hearing needs: Yes (b/l hearing aids) Vision needs: Yes (rx glasses) Questionnaire PHQ-9 Over the last 2 weeks, how often have you been bothered by any of the following problems? 1. Little interest or pleasure in doing things: not at all 2. Feeling down, depressed, or hopeless: not at all 3. Trouble falling or staying asleep, or sleeping too much: not at all 4. Feeling tired or having little energy: not at all 5. Poor appetite or overeating: not at all 6. Feeling bad about yourself - or that you are a failure or have let yourself or your family down: not at all 7. Trouble concentrating on things, such as reading the newspaper or watching television: not at all 8. Moving or speaking so slowly that other people could have noticed. Or the opposite - being so fidgety or restless that you have been moving around a lot more than usual: not at all 9. Thoughts that you would be better off or of hurting yourself in some way: not at all Total score: 0 Depression Screening Interpretation: Negative Depression Screening Done: Yes 17733 - PHQ-9 Billing: Yes Source: Developed by Drs. Cj Barbosa, Trang Crowley, Ravi Thakur and colleagues, with an educational cortez from [employer]. Thrive Questionnaire Date Thrive assessed: 08/25/25 I am a: Patient What is your living situation today?: I have a steady place to live Within the past 12 months, did the food you bought not last and you didn't have the money to get more?: Never true Within the past 12 months, did you worry whether your food would run out before you got money to buy more?: Never true Do you have trouble paying for medicines?: No Do you have trouble getting transportation to medical appointments?: No Do you have trouble paying your heating and electricity bill?: No Do you have trouble taking care of your child, family member or friend?: Yes Do you have trouble with day-to-day activities such as bathing, preparing meals, shopping, managing finances, etc.?: Yes Are you currently unemployed and looking for a job?: No Are you interested in more education?: No Please select the resources that you would like help with: None THRIVE Score: 0 AUDIT C Alcohol Use Questionnaire (AUDIT-C) 1. How often do you have a drink containing alcohol?: Never 3. How often do you have six or more drinks on one occasion?: Never Total Score: 0 Score Reviewed/Action Taken: No DREW-7 AMB Questionnaire DREW-7 Date DREW - 7 assessed: 08/25/25 Feeling nervous, anxious, or on edge: 0 = Not at all Not being able to stop or control worryin = Not at all Worrying too much about different things: 0 = Not at all Trouble relaxin = Not at all Being so restless that it is hard to sit still: 0 = Not at all Becoming easily annoyed or irritable: 0 = Not at all Feeling afraid as if something awful might happen: 0 = Not at all Total DREW-7 score (0-4 normal; 5-9 mild; 10-14 moderate; 15-21 severe): 0 Source: Developed by Drs. Cj Barbosa, Trang Crowley, Ravi Thakur and colleagues, with an educational cortez from [employer]. DREW-7 Assessment Billing DREW-7 Assessment Tool: DREW-7 Assessment 29561 Review of Systems Const Details: - Dermatological: Reports rash with itchiness, currently not itchy. - Cardiovascular: Reports episodes of low blood pressure. All systems reviewed & are unremarkable except as noted in HPI and below Physical exam (Primary Care) Vital Signs: Last Vital Signs Temp 97.4 F 08/25/25 13:57 Pulse 81 08/25/25 13:57 Resp 20 08/25/25 13:57 BP 118/62 08/25/25 13:57 Pulse Ox 97 08/25/25 13:57 Oxygen Delivery Method Room Air 08/25/25 13:57 Oxygen Flow Rate 97 08/25/25 13:57 Care Plan Goal for BP management: <140/90 at Goal BMI result Body Mass Index 27.7 BMI Assessment/Plan discussion: High BMI High, discussed plan: lifestyle, weight reduction, dietary, physical activity, alcohol moderation and other Tobacco/Smoking Status: Tobacco use Status Tobacco use date assessed 08/25/25 08/25/25 14:11 Patient Tobacco Use Status Former Tobacco user 08/25/25 13:58 PHQ-9: PHQ-9 Score PHQ-9: Total score 0 08/25/25 14:19 Depression Screening Interpretation: Negative Thrive Assessment: Date of Thrive Assessment Date Thrive assessed 08/25/25 08/25/25 14:11 Const Other: Appearance: Alert. Oriented X3. No acute distress. Head: Normal external exam. Normocephalic. Atraumatic. Eyes: Pupils are equal, round, and reactive to light. Extraocular movements intact. Conjunctiva and sclera normal. Eyelids normal. Throat: Pharynx normal. Uvula midline. Moist mucous membranes. Neck: Normal inspection. Neck supple. Full range of motion. Cardiovascular: Normal heart rate and rhythm. Heart sound normal. No murmurs noted. Pulses normal throughout. Respiratory: No respiratory distress. Painless inspiration. Breath sounds normal. No wheezes/rales/rhonchi noted. Chest nontender. No accessory muscle usage noted or decreased air movement noted. Back: Full range of motion noted. Skin: Skin warm and dry. Normal skin color. Normal skin turgor. Rash noted on legs, possibly infected with yellow discharge. No other rashes/lesions/lacerations noted. Extremities: No lower extremity edema. Rash on right lower extremity and left lower extremity with dermatitis and cellulitis. No streaking, fluctuance, foul odor, crepitus or foreign bodies noted. Neuro: Oriented X 3. No motor deficit. No sensory deficit. Reflexes normal. Office Procedures Flu Questionnaire Does the patient have a severe egg allergy?: No Does the patient have severe life threatening allergies?: No Does the patient have a fever or illness today?: No Has the patient ever had Guillain-[place] Syndrome?: No Has the patient ever had any past reaction to a flu shot?: No Immunizations Fluarix 9218-0000 (PF) 45 mcg (15 mcg x 3)/0.5 mL IM syringe Performing Provider: Haritha Ni PA-C Performing Location: [facility] Administered by: Ghada Barahona CMA on 08/25/25 14:20 Dose Route Admin Location Dispensed Lot Number Expiration Date NDC Returns Supervisor 0.5 mL IM Left Deltoid 0.5 mL [id number] 05/13/30 03000-127-02 [employer] VIS Given Date VIS Provided VIS Publication Date 08/25/25 Single Vaccine 24 Eligibility Eligibility Date Funding Source Not [facility] Eligible 08/25/25 Private Coding Level of Care Code Est Pt Level 4 (47560) Complex EM visit Add On G2211 Diagnoses Dermatitis L30.9 Cellulitis L03.90 Additional Codes PHQ-9 - 43046 - PHQ-9 Billing: Yes ([id number]) DREW-7 Assessment Billing - DREW-7 Assessment Tool: DREW-7 Assessment 34699 ([id number]) Time Spent (min) 50 Assessment & Plan Assessment & Plan (1) Dermatitis: Code(s): L30.9 - Dermatitis, unspecified Category: Medical Plan: The patient will be treated with a topical antibiotic, Bactroban, applied once or twice daily to the affected area. The patient is advised to keep the area clean and dry, and to cover it with a non-stick pad to ensure the ointment remains in place. A referral to the wound clinic has been made for further evaluation and management. (2) Cellulitis: Code(s): L03.90 - Cellulitis, unspecified Category: Medical Plan: The patient will be treated with a topical antibiotic, Bactroban, applied once or twice daily to the affected area. The patient is advised to keep the area clean and dry, and to cover it with a non-stick pad to ensure the ointment remains in place. A referral to the wound clinic has been made for further evaluation and management. Plan Plan Patient was informed and verbally consented to the use of an ambient scribe for clinic note documentation during this visit. 1. Rash The patient will be treated with a topical antibiotic, Bactroban, applied once or twice daily to the affected area. The patient is advised to keep the area clean and dry, and to cover it with a non-stick pad to ensure the ointment remains in place. A referral to the wound clinic has been made for further evaluation and management. 2. Hypotension The patient's hypotension episodes were noted during a visit to urgent care, but no specific treatment was discussed during this visit. I discussed with the patient the use of Bactroban ointment for the rash, emphasizing the importance of keeping the area clean and covered with a non-stick pad. I also informed the patient about the referral to the wound clinic for further management and advised monitoring the rash for any changes. Orders: Orders Influenza [id number] Immunization Today Haritha Ni PA-C Z23 - Encounter for immunization Referrals Wound Care Referral Haritha Ni PA-C L03.90 - Cellulitis, unspecified, L30.9 - Dermatitis, unspecified, S81.801A - Unspecified open wound, right lower leg, initial encounter Medications: New mupirocin 2% 1 appl topical BID 22 grams 3RF Haritha Ni PA-C Changed From warfarin 5 mg See Protocol PO DAILY 90 days 450 tabs 1RF To warfarin Friday-friday 6 mg See Protocol PO DAILY Aly Crespo MD Patient Instructions: - Apply Bactroban ointment to the rash once or twice daily. - Keep the rash area clean and dry. - Cover the rash with a non-stick pad to keep the ointment in place. - Attend the wound clinic appointment for further evaluation.
--- OUTSIDE RECORDS SUMMARY | 2025-08-25 15:32 | XMS_ITS | Encounter Summary ---
Author Organization [facility] Address [address] [place] [address] Care Team Providers Care Ship Pilot Dispatcher Name Role Phone Cj Barber DO Primary Care Provider [phone] Encounter Details Date Type Department Care Team (Late st Contact Info) Description 02/24/2025 Lab Requisition [facility] - Main Lab 299 [facility] [place] [address] Fidencio Burroughs MD [address] [place] [address] Encounter for other general examination Social History [...] K/mcL LAB HEMETOLOGY METHOD 02/24/2025 10:22 AM [facility] RBC 4.20(L) 4.50 - 5.50 M/mcL LAB HEMETOLOGY METHOD 02/24/2025 10:22 AM [facility] LAB Hemoglobin 12.6(L) 13.5 - 17.5 g/dL LAB HEMETOLOGY METHOD 02/24/2025 10:22 AM [facility] LAB Hematocrit 37.1(L) 42.0 - 54.0 % LAB HEMETOLOGY METHOD 02/24/2025 10:22 AM [facility] LAB MCV 89.4 79.0 - 98.0 FL LAB HEMETOLOGY METHOD 02/24/2025 10:22 AM [facility] LAB MCH 30.4 27.0 - 32.0 pcg LAB HEMETOLOGY METHOD 02/24/2025 10:22 AM [facility] LAB MCHC 34.0 32.0 - 37.0 g/dL LAB HEMETOLOGY METHOD 02/24/2025 10:22 AM [facility] LAB RDW 13.3 11.0 - 15.0 % LAB HEMETOLOGY METHOD 02/24/2025 10:22 AM [facility] LAB Platelets 02/24/2025 10:22 AM [facility] LAB Comment:Not measured. Platel ets appear adequate but clumped MPV 10.3 7.0 - 11.0 FL LAB HEMETOLOGY METHOD 02/24/2025 10:22 AM [facility] LAB NRBC 0.0 <1.0 % LAB HEMETOLOGY METHOD 02/24/2025 10:22 AM [facility] LAB NRBC Absolute 0.00 <0.10 K/mcL LAB HEMETOLOGY METHOD 02/24/2025 10:22 AM [facility] LAB Blood Venous blood specimen / Unknown Venipuncture / Unknown 02/24/2025 5:01 AM EDT 02/24/2025 8:10 AM EDT Fidencio Burroughs MD LAB BLOOD ORDERABLES Final Res ult [facility] LAB [address] [place] [address], [place] [phone] * (ABNORMAL) Comprehensive metabolic panel (02/24/2025 5:01 AM EDT) Sodium 135 133 - 145 mmol/L LAB CHEMISTRY METHOD 02/24/2025 10:11 AM [facility] Potassium 3.9 3.5 - 5.5 mmol/L LAB CHEMISTRY METHOD 02/24/2025 10:11 AM [facility] Chloride 98 96 - 110 mmol/L LAB CHEMISTRY METHOD 02/24/2025 10:11 AM [facility] CO2 29 21 - 32 mmol/L LAB CHEMISTRY METHOD 02/24/2025 10:11 AM [facility] LAB Anion Gap 8 3 - 11 LAB CHEMISTRY METHOD 02/24/2025 10:11 AM [facility] Glucose 73 70 - 100 mg/dL LAB CHEMISTRY METHOD 02/24/2025 10:11 AM [facility] BUN 18 5 - 25 mg/dL LAB CHEMISTRY METHOD 02/24/2025 10:11 AM [facility] Creatinine 0.56(L) 0.70 - 1.30 mg/dL LAB CHEMISTRY METHOD 02/24/2025 10:11 AM [facility] LAB eGFR 97 >=60 mL/min/1. 73m2 LAB CHEMISTRY METHOD 02/24/2025 10:11 AM [facility] LAB Comment:Calculation based on the Chronic Kidney Disease Epidemiology Collaboration (CKD-EPI) equation refit without adjustment for race. BUN/Creatinine Ratio 32.1 LAB CHEMISTRY METHOD 02/24/2025 10:11 AM [facility] Calcium 8.8 8.5 - 10.5 mg/dL LAB CHEMISTRY METHOD 02/24/2025 10:11 AM [facility] LAB AST (SGOT) 33 10 - 42 unit/L LAB CHEMISTRY METHOD 02/24/2025 10:11 AM [facility] LAB ALT (SGPT) 55 10 - 60 unit/L LAB CHEMISTRY METHOD 02/24/2025 10:11 AM [facility] Alkaline Phosphatase 100 42 - 121 unit/L LAB CHEMISTRY METHOD 02/24/2025 10:11 AM [facility] Total Protein 5.4(L) 6.0 - 8.0 g/dL LAB CHEMISTRY METHOD 02/24/2025 10:11 AM [facility] Albumin 2.9(L) 3.2 - 5.0 g/dL LAB CHEMISTRY METHOD 02/24/2025 10:11 AM [facility] Total Bilirubin 0.7 0.0 - 1.4 mg/dL LAB CHEMISTRY METHOD 02/24/2025 10:11 AM [facility] Blood Venous blood specimen / Unknown Venipuncture / Unknown 02/24/2025 5:01 AM EDT 02/24/2025 8:10 AM EDT us Fidencio Burroughs MD LAB BLOOD ORDERABLES Final Res ult [facility] [address] [place] [address], documented in this encounter Visit Diagnoses Diagnosis Encounter for other general examination documented in this encounter Additional Health Concerns Infection Onset Date Last Indicated Resolved Time ESBL 05/25/2025 05/25/2025 documented as of this encounter Care Teams Ship Pilot Dispatcher Relationship Specialty Start Date End Date Cj Barber DO [address] [place] [phone] PCP - General 04/21/13 documented as of this encounter
--- OUTSIDE RECORDS SUMMARY | 2025-08-25 15:32 | XMS_ITS | Encounter Summary ---
Author Organization Address [address] [place] [address] Care Team Providers Care Hooker Operator Name Role Phone Cj Barber DO Primary Care Provider Encounter Details Date Type Department Care Team (Late st Contact Info) Description 01/17/2025 Lab Requisition [facility] - Main Lab 299 [facility] [place] [address] Fidencio Burroughs MD [address] [place] [address] Encounter for other general examination Social History [...] mirabilis(A ) BAUDILIO 01/19/2025 11:30 AM EST [facility] Comment: Edited result: Previously reported [...] MICROBIOLOGY - GENERAL ORD ERABLES Final Result [facility] LAB [address] [place] [address], [place] [phone] * (ABNORMAL) Urinalysis with reflex microscopic and culture (01/17/2025 4:00 AM EST) Specific [place] Urine 1.009 1.003 - 1.030 LAB URINALYSIS - AUTOMATED METHOD 01/17/2025 12:[address] [facility] pH, Urine 7.5 5.0 - 8.0 pH LAB URINALYSIS - AUTOMATED METHOD 01/17/2025 12:[address] [facility] Leukocytes, Urine Large(A) Negative LAB URINALYSIS - AUTOMATED METHOD 01/17/2025 12:[address] [facility] Nitrite, Urine Negative Negative LAB URINALYSIS - AUTOMATED METHOD 01/17/2025 12:[address] [facility] Protein, Urine 30(A) <=Trace mg/dL LAB URINALYSIS - AUTOMATED METHOD 01/17/2025 12:[address] [facility] Glucose, Urine Negative Negative mg/dL LAB URINALYSIS - AUTOMATED METHOD 01/17/2025 12:[address] [facility] Ketones, Urine Negative Negative mg/dL LAB URINALYSIS - AUTOMATED METHOD 01/17/2025 12:[address] [facility] Urobilinogen, Urine 1.0 0.2 - 1.0 mg/dL LAB URINALYSIS - AUTOMATED METHOD 01/17/2025 12:[address] [facility] Bilirubin, Urine Negative Negative LAB URINALYSIS - AUTOMATED METHOD 01/17/2025 12:[address] [facility] Blood, Urine Large(A) Negative LAB URINALYSIS - AUTOMATED METHOD 01/17/2025 12:[address] [facility] RBC, Urine 501.9(H) 0 - 4 /HPF LAB URINALYSIS - AUTOMATED METHOD 01/17/2025 12:[address] [facility] WBC, Urine 505.7(H) 0 - 4 /HPF LAB URINALYSIS - AUTOMATED METHOD 01/17/2025 12:[address] [facility] Squamous Epithelial, Urine 4 0 - 60 /LPF LAB URINALYSIS - AUTOMATED METHOD 01/17/2025 12:[address] [facility] Bacteria, Urine Negative Negative /HPF LAB URINALYSIS - AUTOMATED METHOD 01/17/2025 12:[address] [facility] Hyaline Casts, Urine 4.8(H) 0 - 3 /LPF LAB URINALYSIS - AUTOMATED METHOD 01/17/2025 12:[address] [facility] Urine Indwelling urinary catheter / Unknown Non-blood Collection / Unknown 01/17/2025 4:00 AM EST 01/17/2025 10:12 AM EST us Fidencio Burroughs MD LAB URINE ORDERABLES Final Res ult Performing Organization Address [facility]/ZIP Co de Phone Number [facility] [address] [place] [address], [place] [phone] * [place] urine culture tube (01/17/2025 4:00 AM EST) Extra Tube Hold for add-ons. 01/17/2025 12:[address] [facility] Comment:Auto resulted. Urine Indwelling urinary catheter / Unknown Non-blood Collection / Unknown 01/17/2025 4:00 AM EST 01/17/2025 10:12 AM EST us Fidencio Burroughs MD LAB URINE ORDERABLES Final Res ult Performing Organization Address City/[facility]/ZIP Co de Phone Number [facility] [address] [place] [address], [place] [phone] documented in this encounter Visit Diagnoses Diagnosis Encounter for other general examination documented in this encounter Additional Health Concerns Infection Onset Date Last Indicated Resolved Time ESBL 05/25/2025 05/25/2025 documented as of this encounter Care Teams Hooker Operator Relationship Specialty Start Date End Date Cj Barber DO [address] [place] [phone] PCP - General 04/21/13 documented as of this encounter
--- OUTSIDE RECORDS SUMMARY | 2025-08-25 15:32 | XMS_ITS | Encounter Summary ---
Author Organization [facility] Address [address] [place] [address] Care Team Providers Care Instantizer Operator Name Role Phone Cj Barber DO Primary Care Provider [phone] Encounter Details Date Type Department Care Team (Late st Contact Info) Description 01/19/2025 Lab Requisition [facility] - Main Lab 299 [facility] [address] Fidencio Burroughs MD [address] [place] [phone] Encounter for other general examination Social History [...] AM EST) WBC 6.3 4.8 - 10.8 /[facility] LAB HEMETOLOGY METHOD 01/19/2025 12:47 PM [facility] RBC 4.50 4.50 - 5.50 M/mcL LAB HEMETOLOGY METHOD 01/19/2025 12:47 PM [facility] Hemoglobin 13.9 13.5 - 17.5 g/dL LAB HEMETOLOGY METHOD 01/19/2025 12:47 PM [facility] LAB Hematocrit 42.6 42.0 - 54.0 % LAB HEMETOLOGY METHOD 01/19/2025 12:47 PM [facility] LAB MCV 94.0 79.0 - 98.0 FL LAB HEMETOLOGY METHOD 01/19/2025 12:47 PM [facility] LAB MCH 30.7 27.0 - 32.0 pcg LAB HEMETOLOGY METHOD 01/19/2025 12:47 PM [facility] MCHC 32.6 32.0 - 37.0 g/dL LAB HEMETOLOGY METHOD 01/19/2025 12:47 PM [facility] RDW 13.0 11.0 - 15.0 % LAB HEMETOLOGY METHOD 01/19/2025 12:47 PM [facility] LAB Platelets 01/19/2025 12:47 PM [facility] LAB Comment:Not measured. Unable to quantitate due to platelet clumping MPV 11.3(H) 7.0 - 11.0 FL LAB HEMETOLOGY METHOD 01/19/2025 12:47 PM [facility] NRBC 0.0 <1.0 % LAB HEMETOLOGY METHOD 01/19/2025 12:47 PM [facility] NRBC Absolute 0.00 <0.10 K/mcL LAB HEMETOLOGY METHOD 01/19/2025 12:47 PM [facility] Blood Venous blood specimen / Unknown Venipuncture / Unknown 01/19/2025 5:25 AM EST 01/19/2025 10:00 AM EST us Fidencio Burroughs MD LAB BLOOD ORDERABLES Final Res ult [facility] LAB [address] [place] [address], [place] [phone] * (ABNORMAL) Comprehensive metabolic panel (01/19/2025 5:25 AM EST) Sodium 137 133 - 145 mmol/L LAB CHEMISTRY METHOD 01/19/2025 11:35 AM EST [facility] Potassium 4.2 3.5 - 5.5 mmol/L LAB CHEMISTRY METHOD 01/19/2025 11:35 AM [facility] Chloride 103 96 - 110 mmol/L LAB CHEMISTRY METHOD 01/19/2025 11:35 AM [facility] CO2 24 21 - 32 mmol/L LAB CHEMISTRY METHOD 01/19/2025 11:35 AM [facility] LAB Anion Gap 10 3 - 11 LAB CHEMISTRY METHOD 01/19/2025 11:35 AM [facility] LAB Glucose 84 70 - 100 mg/dL LAB CHEMISTRY METHOD 01/19/2025 11:35 AM [facility] BUN 9 5 - 25 mg/dL LAB CHEMISTRY METHOD 01/19/2025 11:35 AM [facility] Creatinine 0.45(L) 0.70 - 1.30 mg/dL LAB CHEMISTRY METHOD 01/19/2025 11:35 AM [facility] LAB eGFR 103 >=60 mL/min/1. 73m2 LAB CHEMISTRY METHOD 01/19/2025 11:35 AM [facility] LAB Comment:Calculation based on the Chronic Kidney Disease Epidemiology Collaboration (CKD-EPI) equation refit without adjustment for race. BUN/Creatinine Ratio 20.0 LAB CHEMISTRY METHOD 01/19/2025 11:35 AM [facility] Calcium 8.9 8.5 - 10.5 mg/dL LAB CHEMISTRY METHOD 01/19/2025 11:35 AM [facility] LAB AST (SGOT) 36 10 - 42 unit/L LAB CHEMISTRY METHOD 01/19/2025 11:35 AM [facility] ALT (SGPT) 44 10 - 60 unit/L LAB CHEMISTRY METHOD 01/19/2025 11:35 AM [facility] Alkaline Phosphatase 114 42 - 121 unit/L LAB CHEMISTRY METHOD 01/19/2025 11:35 AM [facility] Total Protein 6.2 6.0 - 8.0 g/dL LAB CHEMISTRY METHOD 01/19/2025 11:35 AM [facility] Albumin 3.1(L) 3.2 - 5.0 g/dL LAB CHEMISTRY METHOD 01/19/2025 11:35 AM [facility] Total Bilirubin 0.7 0.0 - 1.4 mg/dL LAB CHEMISTRY METHOD 01/19/2025 11:35 AM [facility] Blood Venous blood specimen / Unknown Venipuncture / Unknown 01/19/2025 5:25 AM EST 01/19/2025 10:00 AM EST us Fidencio Burroughs MD LAB BLOOD ORDERABLES Final Res ult [facility] [address] [place] [address], documented in this encounter Visit Diagnoses Diagnosis Encounter for other general examination documented in this encounter Additional Health Concerns Infection Onset Date Last Indicated Resolved Time ESBL 05/25/2025 05/25/2025 documented as of this encounter Care Teams Instantizer Operator Relationship Specialty Start Date End Date Cj Barber DO [address] [place] [phone] PCP - General 04/21/13 documented as of this encounter
--- OUTSIDE RECORDS SUMMARY | 2025-08-25 15:32 | XMS_ITS | Encounter Summary ---
Author Organization [facility] Address [address] [place] [address] Care Team Providers Care Chiller Operator Name Role Phone Cj Barber DO Primary Care Provider [phone] Encounter Details Date Type Department Care Team (Late st Contact Info) Description 01/15/2025 Lab Requisition [facility] - Main Lab 299 [facility] [place] [address] Fidencio Burroughs MD [address] [place] [address] Encounter for other general examination Social History [...] 01/15/2025 11:56 AM [facility] Basophils Absolute 0.02 0.00 - 0.20 K/mcL LAB HEMETOLOGY METHOD 01/15/2025 11:56 AM [facility] LAB Immature Granulocytes Absolute 0.02 0.00 - 0.03 K/mcL LAB HEMETOLOGY METHOD 01/15/2025 11:56 AM [facility] LAB Blood Venous blood specimen / Unknown Venipuncture / Unknown 01/15/2025 6:39 AM EST 01/15/2025 10:03 AM EST Fidencio Burroughs MD LAB BLOOD ORDERABLES Final Res ult [facility] [address] [place] [address], [place] [phone] * Magnesium (01/15/2025 6:39 AM EST) Magnesium 2.0 1.9 - 2.6 mg/dL LAB CHEMISTRY METHOD 01/15/2025 11:40 AM EST [facility] Blood Venous blood specimen / Unknown Venipuncture / Unknown 01/15/2025 6:39 AM EST 01/15/2025 10:03 AM EST Fidencio Burroughs MD LAB BLOOD ORDERABLES Final Res ult [facility] [address] [place] [address], [place] [phone] * (ABNORMAL) Comprehensive metabolic panel (01/15/2025 6:39 AM EST) Sodium 136 133 - 145 mmol/L LAB CHEMISTRY METHOD 01/15/2025 11:40 AM [facility] Potassium 3.9 3.5 - 5.5 mmol/L LAB CHEMISTRY METHOD 01/15/2025 11:40 AM [facility] Chloride 103 96 - 110 mmol/L LAB CHEMISTRY METHOD 01/15/2025 11:40 AM EST [facility] CO2 28 21 - 32 mmol/L LAB CHEMISTRY METHOD 01/15/2025 11:40 AM EST [facility] Anion Gap 5 3 - 11 LAB CHEMISTRY METHOD 01/15/2025 11:40 AM EST [facility] Glucose 89 70 - 100 [...] g/dL LAB CHEMISTRY METHOD 01/15/2025 11:40 AM [facility] Albumin 2.9(L) 3.2 - 5.0 g/dL LAB CHEMISTRY METHOD 01/15/2025 11:40 AM [facility] Total Bilirubin 1.0 0.0 - 1.4 mg/dL LAB CHEMISTRY METHOD 01/15/2025 11:40 AM [facility] Blood Venous blood specimen / Unknown Venipuncture / Unknown 01/15/2025 6:39 AM EST 01/15/2025 10:03 AM EST us Fidencio Burroughs MD LAB BLOOD ORDERABLES Final Res ult 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
--- OUTSIDE RECORDS SUMMARY | 2025-08-25 15:32 | XMS_ITS | Encounter Summary ---
Author Organization [facility] Address [address] [place] [address] Care Team Providers Care Marketing And Communications Officer Name Role Phone Cj Barber DO Primary Care Provider [phone] Encounter Details Date Type Department Care Team (Late st Contact Info) Description 03/01/[address] [facility] - Main Lab 299 [facility] [place] [address] Fidencio Burroughs MD [address] [place] [phone] Encounter for other general examination Social History [...] CBC auto differential (03/01/2025 5:29 AM EDT) [facility] WBC 8.8 4.8 - 10.8 K/mcL LAB HEMETOLOGY METHOD 03/01/2025 11:58 AM [facility] LAB RBC 3.60(L) 4.50 - 5.50 M/mcL LAB HEMETOLOGY METHOD 03/01/2025 11:58 AM [facility] Hemoglobin 11.0(L) 13.5 - 17.5 g/dL LAB HEMETOLOGY METHOD 03/01/2025 11:58 AM [facility] LAB Hematocrit 33.0(L) 42.0 - 54.0 % LAB HEMETOLOGY METHOD 03/01/2025 11:58 AM [facility] LAB MCV 91.2 79.0 - 98.0 FL LAB HEMETOLOGY METHOD 03/01/2025 11:58 AM [facility] LAB MCH 30.4 27.0 - 32.0 pcg LAB HEMETOLOGY METHOD 03/01/2025 11:58 AM [facility] LAB MCHC 33.3 32.0 - 37.0 g/dL LAB HEMETOLOGY METHOD 03/01/2025 11:58 AM [facility] LAB RDW 13.9 11.0 - 15.0 % LAB HEMETOLOGY METHOD 03/01/2025 11:58 AM [facility] LAB Platelets 03/01/2025 11:58 AM [facility] LAB Comment:Not measured. Unable to quantitate due to platelet clumping MPV 10.2 7.0 - 11.0 FL LAB HEMETOLOGY METHOD 03/01/2025 11:58 AM [facility] NRBC 0.0 <1.0 % LAB HEMETOLOGY METHOD 03/01/2025 11:58 AM [facility] NRBC Absolute 0.00 <0.10 K/mcL LAB HEMETOLOGY METHOD 03/01/2025 11:58 AM [facility] Neutrophils Relative 76.0 % LAB HEMETOLOGY METHOD 03/01/2025 11:58 AM [facility] Lymphocytes Relative 13.4 % LAB HEMETOLOGY METHOD 03/01/2025 11:58 AM [facility] Monocytes Relative 9.0 % LAB HEMETOLOGY METHOD 03/01/2025 11:58 AM [facility] Eosinophils Relative 1.1 % LAB HEMETOLOGY METHOD 03/01/2025 11:58 AM [facility] Basophils Relative 0.2 % LAB HEMETOLOGY METHOD 03/01/2025 11:58 AM [facility] Immature Granulocytes Relative 0.3 % LAB HEMETOLOGY METHOD 03/01/2025 11:58 AM [facility] Neutrophils Absolute 6.69 1.50 - 7.00 K/mcL LAB HEMETOLOGY METHOD 03/01/2025 11:58 AM [facility] Lymphocytes Absolute 1.18 1.00 - 5.00 K/mcL LAB HEMETOLOGY METHOD 03/01/2025 11:58 AM [facility] Monocytes Absolute 0.79 0.20 - 1.00 K/mcL LAB HEMETOLOGY METHOD 03/01/2025 11:58 AM [facility] Eosinophils Absolute 0.10 0.00 - 0.50 K/mcL LAB HEMETOLOGY METHOD 03/01/2025 11:58 AM [facility] Basophils Absolute 0.02 0.00 - 0.20 K/mcL LAB HEMETOLOGY METHOD 03/01/2025 11:58 AM [facility] Immature Granulocytes Absolute 0.03 0.00 - 0.03 K/mcL LAB HEMETOLOGY METHOD 03/01/2025 11:58 AM [facility] Blood Venous blood specimen / Unknown Venipuncture / Unknown 03/01/2025 5:29 AM EDT 03/01/2025 9:52 AM EDT us Fidencio Burroughs MD LAB BLOOD ORDERABLES Final Res ult [facility] [address] [place] [address], [place] [phone] * (ABNORMAL) Comprehensive metabolic panel (03/01/2025 5:29 AM EDT) Sodium 137 133 - 145 mmol/L LAB CHEMISTRY METHOD 03/01/2025 12:08 PM [facility] Potassium 4.1 3.5 - 5.5 mmol/L LAB CHEMISTRY METHOD 03/01/2025 12:08 PM [facility] Chloride 101 96 - 110 mmol/L LAB CHEMISTRY METHOD 03/01/2025 12:08 PM [facility] CO2 30 21 - 32 mmol/L LAB CHEMISTRY METHOD 03/01/2025 12:08 PM [facility] Anion Gap 6 3 - 11 LAB CHEMISTRY METHOD 03/01/2025 12:08 PM [facility] Glucose 82 70 - 100 mg/dL LAB CHEMISTRY METHOD 03/01/2025 12:08 PM [facility] BUN 15 5 - 25 mg/dL LAB CHEMISTRY METHOD 03/01/2025 12:08 PM [facility] Creatinine 0.41(L) 0.70 - 1.30 mg/dL LAB CHEMISTRY METHOD 03/01/2025 12:08 PM [facility] eGFR 106 >=60 mL/min/1. 73m2 LAB CHEMISTRY METHOD 03/01/2025 12:08 PM [facility] Comment:Calculation based on the Chronic Kidney Disease Epidemiology Collaboration (CKD-EPI) equation refit without adjustment for race. BUN/Creatinine Ratio 36.6 LAB CHEMISTRY METHOD 03/01/2025 12:08 PM [facility] Calcium 8.7 8.5 - 10.5 mg/dL LAB CHEMISTRY METHOD 03/01/2025 12:08 PM [facility] AST (SGOT) 37 10 - 42 unit/L LAB CHEMISTRY METHOD 03/01/2025 12:08 PM [facility] ALT (SGPT) 64(H) 10 - 60 unit/L LAB CHEMISTRY METHOD 03/01/2025 12:08 PM [facility] Alkaline Phosphatase 105 42 - 121 unit/L LAB CHEMISTRY METHOD 03/01/2025 12:08 PM [facility] Total Protein 5.1(L) 6.0 - 8.0 g/dL LAB CHEMISTRY METHOD 03/01/2025 12:08 PM [facility] Albumin 2.7(L) 3.2 - 5.0 g/dL LAB CHEMISTRY METHOD 03/01/2025 12:08 PM [facility] Total Bilirubin 1.1 0.0 - 1.4 mg/dL LAB CHEMISTRY METHOD 03/01/2025 12:08 PM [facility] Blood Venous blood specimen / Unknown Venipuncture / Unknown 03/01/2025 5:29 AM EDT 03/01/2025 9:52 AM EDT us Fidencio Burroughs MD LAB BLOOD ORDERABLES Final Res ult [facility] [address] [place] [address], documented in this encounter Visit Diagnoses Diagnosis Encounter for other general examination documented in this encounter Additional Health Concerns 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
--- OUTSIDE RECORDS SUMMARY | 2025-08-25 15:32 | XMS_ITS | Encounter Summary ---
Author Organization [facility] Address [address] [place] [address] Care Team Providers Care Donkey Engine Firer/Fireman Name Role Phone Cj Barber DO Primary Care Provider [phone] Encounter Details Date Type Department Care Team (Late st Contact Info) Description 01/25/2025 Lab Requisition [facility] - Main Lab 299 [facility] [place] [address] Fidencio Burroughs MD [address] [place] [address] Encounter for other general examination Social History [...] AM EST) WBC 7.8 4.8 - 10.8 /[facility] LAB HEMETOLOGY METHOD 01/25/2025 11:36 AM [facility] LAB RBC 4.50 4.50 - 5.50 M/mcL LAB HEMETOLOGY METHOD 01/25/2025 11:36 AM [facility] LAB Hemoglobin 13.7 13.5 - 17.5 g/dL LAB HEMETOLOGY METHOD 01/25/2025 11:36 AM [facility] LAB Hematocrit 41.6(L) 42.0 - 54.0 % LAB HEMETOLOGY METHOD 01/25/2025 11:36 AM [facility] LAB MCV 93.3 79.0 - 98.0 FL LAB HEMETOLOGY METHOD 01/25/2025 11:36 AM [facility] LAB MCH 30.7 27.0 - 32.0 pcg LAB HEMETOLOGY METHOD 01/25/2025 11:36 AM [facility] LAB MCHC 32.9 32.0 - 37.0 g/dL LAB HEMETOLOGY METHOD 01/25/2025 11:36 AM [facility] LAB RDW 12.9 11.0 - 15.0 % LAB HEMETOLOGY METHOD 01/25/2025 11:36 AM [facility] LAB Platelets 01/25/2025 11:36 AM [facility] LAB Comment:Not measured. Platel ets appear adequate but clumped MPV 11.1(H) 7.0 - 11.0 FL LAB HEMETOLOGY METHOD 01/25/2025 11:36 AM [facility] LAB NRBC 0.0 <1.0 % LAB HEMETOLOGY METHOD 01/25/2025 11:36 AM [facility] LAB NRBC Absolute 0.00 <0.10 K/mcL LAB HEMETOLOGY METHOD 01/25/2025 11:36 AM [facility] LAB Blood Venous blood specimen / Unknown Venipuncture / Unknown 01/25/2025 7:02 AM EST 01/25/2025 10:36 AM EST us Fidencio Burroughs MD LAB BLOOD ORDERABLES Final Res ult [facility] LAB [address] [place] [address], [place] [phone] * (ABNORMAL) Comprehensive metabolic panel (01/25/2025 7:02 AM EST) Sodium 137 133 - 145 mmol/L LAB CHEMISTRY METHOD 01/25/2025 11:50 AM EST [facility] LAB Potassium 3.9 3.5 - 5.5 mmol/L LAB CHEMISTRY METHOD 01/25/2025 11:50 AM [facility] LAB Chloride 101 96 - 110 mmol/L LAB CHEMISTRY METHOD 01/25/2025 11:50 AM [facility] LAB CO2 27 21 - 32 mmol/L LAB CHEMISTRY METHOD 01/25/2025 11:50 AM [facility] LAB Anion Gap 9 3 - 11 LAB CHEMISTRY METHOD 01/25/2025 11:50 AM [facility] LAB Glucose 87 70 - 100 mg/dL LAB CHEMISTRY METHOD 01/25/2025 11:50 AM [facility] LAB BUN 10 5 - 25 mg/dL LAB CHEMISTRY METHOD 01/25/2025 11:50 AM [facility] LAB Creatinine 0.50(L) 0.70 - 1.30 mg/dL LAB CHEMISTRY METHOD 01/25/2025 11:50 AM [facility] LAB eGFR 100 >=60 mL/min/1. 73m2 LAB CHEMISTRY METHOD 01/25/2025 11:50 AM [facility] LAB Comment:Calculation based on the Chronic Kidney Disease Epidemiology Collaboration (CKD-EPI) equation refit without adjustment for race. BUN/Creatinine Ratio 20.0 LAB CHEMISTRY METHOD 01/25/2025 11:50 AM [facility] LAB Calcium 9.1 8.5 - 10.5 mg/dL LAB CHEMISTRY METHOD 01/25/2025 11:50 AM [facility] LAB AST (SGOT) 28 10 - 42 unit/L LAB CHEMISTRY METHOD 01/25/2025 11:50 AM [facility] LAB ALT (SGPT) 38 10 - 60 unit/L LAB CHEMISTRY METHOD 01/25/2025 11:50 AM [facility] LAB Alkaline Phosphatase 127(H) 42 - 121 unit/L LAB CHEMISTRY METHOD 01/25/2025 11:50 AM [facility] LAB Total Protein 6.1 6.0 - 8.0 g/dL LAB CHEMISTRY METHOD 01/25/2025 11:50 AM [facility] LAB Albumin 3.1(L) 3.2 - 5.0 g/dL LAB CHEMISTRY METHOD 01/25/2025 11:50 AM [facility] LAB Total Bilirubin 0.7 0.0 - 1.4 mg/dL LAB CHEMISTRY METHOD 01/25/2025 11:50 AM [facility] LAB Blood Venous blood specimen / Unknown Venipuncture / Unknown 01/25/2025 7:02 AM EST 01/25/2025 10:36 AM EST us Fidencio Burroughs MD LAB BLOOD ORDERABLES Final Res ult [facility] [address] [place] [address], documented in this encounter Visit Diagnoses Diagnosis Encounter for other general examination documented in this encounter Additional Health Concerns 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
--- OUTSIDE RECORDS SUMMARY | 2025-08-25 15:32 | XMS_ITS | Encounter Summary ---
Author Organization [facility] Address [address] [place] [address] Care Team Providers Care Healthcare Facility Administrator Name Role Phone Cj Barber DO Primary Care Provider [phone] Encounter Details Date Type Department Care Team (Late st Contact Info) Description 03/07/2025 Lab Requisition [facility] - Main Lab 299 [facility] [place] [address] Fidencio Burroughs MD [address] [place] [address] Encounter for other general examination Social History [...] K/mcL LAB HEMETOLOGY METHOD 03/07/2025 1:40 PM [facility] LAB RBC 3.70(L) 4.50 - 5.50 M/mcL LAB HEMETOLOGY METHOD 03/07/2025 1:40 PM [facility] LAB Hemoglobin 11.5(L) 13.5 - 17.5 g/dL LAB HEMETOLOGY METHOD 03/07/2025 1:40 PM [facility] LAB Hematocrit 34.9(L) 42.0 - 54.0 % LAB HEMETOLOGY METHOD 03/07/2025 1:40 PM [facility] LAB MCV 93.8 79.0 - 98.0 FL LAB HEMETOLOGY METHOD 03/07/2025 1:40 PM [facility] LAB MCH 30.9 27.0 - 32.0 pcg LAB HEMETOLOGY METHOD 03/07/2025 1:40 PM [facility] LAB MCHC 33.0 32.0 - 37.0 g/dL LAB HEMETOLOGY METHOD 03/07/2025 1:40 PM [facility] LAB RDW 14.7 11.0 - 15.0 % LAB HEMETOLOGY METHOD 03/07/2025 1:40 PM [facility] LAB Platelets 03/07/2025 1:40 PM [facility] LAB Comment:Not measured. Unable to quantitate due to platelet clumping MPV 9.2 7.0 - 11.0 FL LAB HEMETOLOGY METHOD 03/07/2025 1:40 PM [facility] LAB NRBC 0.0 <1.0 % LAB HEMETOLOGY METHOD 03/07/2025 1:40 PM [facility] LAB NRBC Absolute 0.00 <0.10 K/mcL LAB HEMETOLOGY METHOD 03/07/2025 1:40 PM [facility] Blood Venous blood specimen / Unknown Venipuncture / Unknown 03/07/2025 5:15 AM EDT 03/07/2025 10:19 AM EDT Fidencio Burroughs MD LAB BLOOD ORDERABLES Final Res ult [facility] [address] [place] [address], * (ABNORMAL) Comprehensive metabolic panel (03/07/2025 5:15 AM EDT) Sodium 137 133 - 145 mmol/L LAB CHEMISTRY METHOD 03/07/2025 12:39 PM [facility] Potassium 3.8 3.5 - 5.5 mmol/L LAB CHEMISTRY METHOD 03/07/2025 12:39 PM [facility] Chloride 101 96 - 110 mmol/L LAB CHEMISTRY METHOD 03/07/2025 12:39 PM [facility] CO2 32 21 - 32 mmol/L LAB CHEMISTRY METHOD 03/07/2025 12:39 PM [facility] Anion Gap 4 3 - 11 LAB CHEMISTRY METHOD 03/07/2025 12:39 PM [facility] Glucose 77 70 - 100 mg/dL LAB CHEMISTRY METHOD 03/07/2025 12:39 PM [facility] BUN 14 5 - 25 mg/dL LAB CHEMISTRY METHOD 03/07/2025 12:39 PM [facility] Creatinine 0.51(L) 0.70 - 1.30 mg/dL LAB CHEMISTRY METHOD 03/07/2025 12:39 PM [facility] LAB eGFR 99 >=60 mL/min/1. 73m2 LAB CHEMISTRY METHOD 03/07/2025 12:39 PM [facility] LAB Comment:Calculation based on the Chronic Kidney Disease Epidemiology Collaboration (CKD-EPI) equation refit without adjustment for race. BUN/Creatinine Ratio 27.5 LAB CHEMISTRY METHOD 03/07/2025 12:39 PM T [facility] LAB Calcium 8.6 8.5 - 10.5 mg/dL LAB CHEMISTRY METHOD 03/07/2025 12:39 PM [facility] AST (SGOT) 32 10 - 42 unit/L LAB CHEMISTRY METHOD 03/07/2025 12:39 PM [facility] ALT (SGPT) 48 10 - 60 unit/L LAB CHEMISTRY METHOD 03/07/2025 12:39 PM [facility] LAB Alkaline Phosphatase 116 42 - 121 unit/L LAB CHEMISTRY METHOD 03/07/2025 12:39 PM [facility] Total Protein 5.3(L) 6.0 - 8.0 g/dL LAB CHEMISTRY METHOD 03/07/2025 12:39 PM [facility] Albumin 2.8(L) 3.2 - 5.0 g/dL LAB CHEMISTRY METHOD 03/07/2025 12:39 PM [facility] Total Bilirubin 1.0 0.0 - 1.4 mg/dL LAB CHEMISTRY METHOD 03/07/2025 12:39 PM [facility] Blood Venous blood specimen / Unknown Venipuncture / Unknown 03/07/2025 5:15 AM EDT 03/07/2025 10:19 AM EDT us Fidencio Burroughs MD LAB BLOOD ORDERABLES Final Res ult [facility] [address] [place] [address], documented in this encounter Visit Diagnoses Diagnosis Encounter for other general examination documented in this encounter Additional Health Concerns 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
--- OUTSIDE RECORDS SUMMARY | 2025-08-25 15:32 | XMS_ITS | Encounter Summary ---
Author Organization [facility] Address [address] [place] [address] Care Team Providers Care Allergist Immunologist Name Role Phone Cj Barber DO Primary Care Provider [phone] Encounter Details Date Type Department Care Team (Late st Contact Info) Description 02/26/2025 Lab Requisition [facility] - Main Lab 299 [facility] [place] [address] Fidencio Burroughs MD [address] [place] [phone] Encounter for other general examination Social History [...] CBC auto differential (02/26/2025 6:35 AM EDT) [facility] WBC 11.9(H) 4.8 - 10.8 K/mcL LAB HEMETOLOGY METHOD 02/26/2025 11:12 AM [facility] LAB RBC 4.20(L) 4.50 - 5.50 M/mcL LAB HEMETOLOGY METHOD 02/26/2025 11:12 AM [facility] LAB Hemoglobin 12.6(L) 13.5 - 17.5 g/dL LAB HEMETOLOGY METHOD 02/26/2025 11:12 AM [facility] LAB Hematocrit 38.4(L) 42.0 - 54.0 % LAB HEMETOLOGY METHOD 02/26/2025 11:12 AM [facility] LAB MCV 92.5 79.0 - 98.0 FL LAB HEMETOLOGY METHOD 02/26/2025 11:12 AM [facility] LAB MCH 30.4 27.0 - 32.0 pcg LAB HEMETOLOGY METHOD 02/26/2025 11:12 AM [facility] LAB MCHC 32.8 32.0 - 37.0 g/dL LAB HEMETOLOGY METHOD 02/26/2025 11:12 AM [facility] LAB RDW 13.6 11.0 - 15.0 % LAB HEMETOLOGY METHOD 02/26/2025 11:12 AM [facility] LAB Platelets 02/26/2025 11:12 AM [facility] LAB Comment:Not measured. Platel ets appear adequate but clumped MPV 10.5 7.0 - 11.0 FL LAB HEMETOLOGY METHOD 02/26/2025 11:12 AM [facility] LAB NRBC 0.0 <1.0 % LAB HEMETOLOGY METHOD 02/26/2025 11:12 AM [facility] LAB NRBC Absolute 0.00 <0.10 K/mcL LAB HEMETOLOGY METHOD 02/26/2025 11:12 AM [facility] LAB Neutrophils Relative 78.4 % LAB HEMETOLOGY METHOD 02/26/2025 11:12 AM [facility] LAB Lymphocytes Relative 13.1 % LAB HEMETOLOGY METHOD 02/26/2025 11:12 AM [facility] LAB Monocytes Relative 7.0 % LAB HEMETOLOGY METHOD 02/26/2025 11:12 AM [facility] LAB Eosinophils Relative 1.0 % LAB HEMETOLOGY METHOD 02/26/2025 11:12 AM [facility] Basophils Relative 0.2 % LAB HEMETOLOGY METHOD 02/26/2025 11:12 AM [facility] LAB Immature Granulocytes Relative 0.3 % LAB HEMETOLOGY METHOD 02/26/2025 11:12 AM [facility] LAB Neutrophils Absolute 9.33(H) 1.50 - 7.00 K/mcL LAB HEMETOLOGY METHOD 02/26/2025 11:12 AM [facility] Lymphocytes Absolute 1.56 1.00 - 5.00 K/mcL LAB HEMETOLOGY METHOD 02/26/2025 11:12 AM [facility] Monocytes Absolute 0.83 0.20 - 1.00 K/mcL LAB HEMETOLOGY METHOD 02/26/2025 11:12 AM [facility] LAB Eosinophils Absolute 0.12 0.00 - 0.50 K/mcL LAB HEMETOLOGY METHOD 02/26/2025 11:12 AM [facility] Basophils Absolute 0.02 0.00 - 0.20 K/mcL LAB HEMETOLOGY METHOD 02/26/2025 11:12 AM [facility] LAB Immature Granulocytes Absolute 0.04(H) 0.00 - 0.03 K/mcL LAB HEMETOLOGY METHOD 02/26/2025 11:12 AM [facility] LAB Blood Venous blood specimen / Unknown Venipuncture / Unknown 02/26/2025 6:35 AM EDT 02/26/2025 9:37 AM EDT us Fidencio Burroughs MD LAB BLOOD ORDERABLES Final Res ult [facility] [address] [place] [address], * (ABNORMAL) Comprehensive metabolic panel (02/26/2025 6:35 AM EDT) Sodium 135 133 - 145 mmol/L LAB CHEMISTRY METHOD 02/26/2025 11:29 AM [facility] LAB Potassium 4.1 3.5 - 5.5 mmol/L LAB CHEMISTRY METHOD 02/26/2025 11:29 AM [facility] LAB Chloride 98 96 - 110 mmol/L LAB CHEMISTRY METHOD 02/26/2025 11:29 AM [facility] LAB CO2 33(H) 21 - 32 mmol/L LAB CHEMISTRY METHOD 02/26/2025 11:29 AM [facility] LAB Anion Gap 4 3 - 11 LAB CHEMISTRY METHOD 02/26/2025 11:29 AM [facility] Glucose 83 70 - 100 mg/dL LAB CHEMISTRY METHOD 02/26/2025 11:29 AM [facility] BUN 17 5 - 25 mg/dL LAB CHEMISTRY METHOD 02/26/2025 11:29 AM [facility] LAB Creatinine 0.50(L) 0.70 - 1.30 mg/dL LAB CHEMISTRY METHOD 02/26/2025 11:29 AM [facility] LAB eGFR 100 >=60 mL/min/1. 73m2 LAB CHEMISTRY METHOD 02/26/2025 11:29 AM [facility] LAB Comment:Calculation based on the Chronic Kidney Disease Epidemiology Collaboration (CKD-EPI) equation refit without adjustment for race. BUN/Creatinine Ratio 34.0 LAB CHEMISTRY METHOD 02/26/2025 11:29 AM [facility] LAB Calcium 8.7 8.5 - 10.5 mg/dL LAB CHEMISTRY METHOD 02/26/2025 11:29 AM [facility] LAB AST (SGOT) 59(H) 10 - 42 unit/L LAB CHEMISTRY METHOD 02/26/2025 11:29 AM [facility] LAB ALT (SGPT) 95(H) 10 - 60 unit/L LAB CHEMISTRY METHOD 02/26/2025 11:29 AM [facility] LAB Alkaline Phosphatase 105 42 - 121 unit/L LAB CHEMISTRY METHOD 02/26/2025 11:29 AM [facility] LAB Total Protein 5.8(L) 6.0 - 8.0 g/dL LAB CHEMISTRY METHOD 02/26/2025 11:29 AM [facility] Albumin 3.1(L) 3.2 - 5.0 g/dL LAB CHEMISTRY METHOD 02/26/2025 11:29 AM [facility] LAB Total Bilirubin 1.0 0.0 - 1.4 mg/dL LAB CHEMISTRY METHOD 02/26/2025 11:29 AM [facility] LAB Blood Venous blood specimen / Unknown Venipuncture / Unknown 02/26/2025 6:35 AM EDT 02/26/2025 9:37 AM EDT us Fidencio Burroughs MD LAB BLOOD ORDERABLES Final Res ult [facility] [address] [place] [address], documented in this encounter Visit Diagnoses Diagnosis Encounter for other general examination documented in this encounter Additional Health Concerns 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
--- OUTSIDE RECORDS SUMMARY | 2025-08-25 15:32 | XMS_ITS | Encounter Summary ---
Author Organization [facility] Address [address] [place] [address] Care Team Providers Care Flow Specialist Name Role Phone Cj Barber DO Primary Care Provider [phone] Encounter Details Date Type Department Care Team (Late st Contact Info) Description 04/08/2025 Lab Requisition [facility] - Main Lab 299 [facility] [place] [phone] Luis Miguel Caceres MD [address] [place] [phone] Gross hematuria Social History Tobacco Use Types [...] if clinically indicated. 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
--- OUTSIDE RECORDS SUMMARY | 2025-08-25 15:32 | XMS_ITS | Encounter Summary ---
Author Organization [facility] Address [address] [place] [address] Care Team Providers Care Inter Fold Roll Cutter Name Role Phone Cj Barber DO Primary Care Provider [phone] Encounter Details Date Type Department Care Team (Late st Contact Info) Description 02/25/[address] [facility] - Main Lab 299 [facility] [place] [address] Fidencio Burroughs MD [address] [place] [phone] Hematuria, unspecified Social History Tobacco Use Types [...] urine (02/24/2025 6:00 PM EDT) Pathologist [facility] Culture, Urine 10,000-49,0 00 CFU/mL Lucrecia albicans/du bliniensis( A) 02/27/2025 12:30 PM EDT [facility] Comment: Edited result: Previously reported as Yeast on 02/26/2025 at 1030 EDT. Urine Indwelling urinary catheter / Unknown 02/24/2025 6:00 PM EDT 02/25/2025 12:09 PM EDT us Fidencio Burroughs MD LAB MICROBIOLOGY - GENERAL ORD ERABLES Final Result [facility] [address] [place] [address], [place] [phone] * (ABNORMAL) Urinalysis with reflex microscopic and culture (02/24/2025 6:00 PM EDT) Pathologist [facility] Specific [place] Urine 1.023 1.003 - 1.030 LAB URINALYSIS - AUTOMATED METHOD 02/25/2025 12:09 PM EDT [facility] pH, Urine 6.0 5.0 - 8.0 pH LAB URINALYSIS - AUTOMATED METHOD 02/25/2025 12:09 PM EDT [facility] Leukocytes, Urine Large(A) Negative LAB URINALYSIS - AUTOMATED METHOD 02/25/2025 12:09 PM EDT [facility] Nitrite, Urine Negative Negative LAB URINALYSIS - AUTOMATED METHOD 02/25/2025 12:09 PM EDT [facility] Protein, Urine 30(A) <=Trace mg/dL LAB URINALYSIS - AUTOMATED METHOD 02/25/2025 12:09 PM EDT [facility] Glucose, Urine Negative Negative mg/dL LAB URINALYSIS - AUTOMATED METHOD 02/25/2025 12:09 PM [facility] Ketones, Urine Negative Negative mg/dL LAB URINALYSIS - AUTOMATED METHOD 02/25/2025 12:09 PM [facility] Urobilinogen , Urine 1.0 0.2 - 1.0 mg/dL LAB URINALYSIS - AUTOMATED METHOD 02/25/2025 12:09 PM [facility] LAB Bilirubin, Urine Negative Negative LAB URINALYSIS - AUTOMATED METHOD 02/25/2025 12:09 PM [facility] Blood, Urine Large(A) Negative LAB URINALYSIS - AUTOMATED METHOD 02/25/2025 12:09 PM [facility] RBC, Urine 90.1(H) 0 - 4 /HPF LAB URINALYSIS - AUTOMATED METHOD 02/25/2025 12:09 PM [facility] WBC, Urine 251.6(H) 0 - 4 /HPF LAB URINALYSIS - AUTOMATED METHOD 02/25/2025 12:09 PM [facility] Squamous Epithelial, Urine 3 0 - 60 /LPF LAB URINALYSIS - AUTOMATED METHOD 02/25/2025 12:09 PM [facility] Bacteria, Urine Negative Negative /HPF LAB URINALYSIS - AUTOMATED METHOD 02/25/2025 12:09 PM [facility] Hyaline Casts, Urine 2.4 0 - 3 /LPF LAB URINALYSIS - AUTOMATED METHOD 02/25/2025 12:09 PM [facility] Yeast, Urine Present(A) None /HPF LAB URINALYSIS - AUTOMATED METHOD 02/25/2025 12:09 PM [facility] Urine Indwelling urinary catheter / Unknown 02/24/2025 6:00 PM EDT 02/25/2025 11:30 AM EDT us Fidencio Burroughs MD LAB URINE ORDERABLES Final Res ult Performing Organization Address [facility]/ZIP Co de Phone Number [facility] [address] [place] [address], [place] [phone] * Mckeon urine culture tube (02/24/2025 6:00 PM EDT) Extra Tube Hold for add-ons. 02/25/2025 1:01 PM EDT [facility] Comment:Auto resulted. 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
--- OUTSIDE RECORDS SUMMARY | 2025-08-25 15:32 | XMS_ITS | Clinical Summary ---
Author Organization [facility] Address [address] [place] [address] Phone Care Team Providers Care Bog Worker Name Role Phone Cj Barber DO Primary Care Provider [phone] Allergies No known active allergies Medications aspirin [...] 5 mg tabletIndicatio ns:Coronary artery disease involving akhiok coronary artery of akhiok heart without angina pectoris Take 1 tablet [...] of the left lower lobe; transferred to [facility] and felt to be elevated risk [...] high-dose atorvastatin.` Coronary artery disease invo lving akhiok coronary artery of akhiok heart without angina pectoris 06/11/2022 Overview (04/27/2025): [...] stenting in the setting of an inferior VT in 2011. He has not had overt [...] Description 08/09/2025 1:10 PM EDT Office Visit [facility] [address] [place] [phone] Shahid Ramos NP PAF (paroxysmal atrial fibrillation) (CMS/[facility] V24, CMS/[facility] V28) (Primary Dx); Acute pulmonary embolism, unspecified pulmonary embolism type, unspecified whether acute cor pulmonale present (CMS/HCC V24, CMS/HCC V28); Coronary artery disease involving akhiok coronary artery of akhiok heart without angina pectoris; Hypercholesterolemia 05/25/2025 Lab Requisition [facility] - Main Lab 299 [facility] [place] [phone] Hilton Saavedra PA Urinary tract infection, site [...] Vaccine: 50+ Years (2 of 2 - PCV20 or PCV21) 04/23/2018 04/23/2017 Cholesterol Screening (Lipid Panel) 11/07/2022 [...] mirabilis ESBL(A) BAUDILIO 05/29/2025 8:45 AM EDT [facility] Comment: THIS ORGANISM IS [...] Pseudomonas aeruginosa(A) BAUDILIO 05/29/2025 8:45 AM EDT [facility] Comment: The organism value for this result has been updated. These results have been appended to the previously preliminary verified report. This is an edited result. Previous organism was Gram negative bacilli on 05/27/2025 at 1022 EDT. Urine Urine specimen obtained by clean catch procedure / Unknown 05/25/2025 05/25/2025 5:52 PM EDT Narrative [facility] - 05/29/2025 8:45 AM [...] Susceptible Pseudomonas aeruginosa Cefepime DISK DIFFUSION Susceptible [facility] LAB MICROBIOLOGY - GENERAL ORDRosy GALAVIZ Final Result [facility] [address] [place] [address], * (ABNORMAL) Comprehensive metabolic panel (03/07/2025 5:15 AM EDT) [facility] Sodium 137 133 - 145 mmol/L LAB CHEMISTRY METHOD 03/07/2025 12:39 PM EDT [facility] Potassium 3.8 3.5 - 5.5 mmol/L LAB CHEMISTRY METHOD [facility] Chloride 101 96 - [...] LAB CHEMISTRY METHOD 03/07/2025 12:39 PM EDT [facility] Albumin 2.8(L) 3.2 - 5.0 g/dL LAB CHEMISTRY METHOD 03/07/2025 12:39 PM EDT [facility] Total Bilirubin 1.0 0.0 - 1.4 mg/dL LAB CHEMISTRY METHOD 03/07/2025 12:39 PM EDT [facility] Blood Venous blood specimen / Unknown Venipuncture / Unknown 03/07/2025 5:15 AM EDT 03/07/2025 10:19 AM EDT us Fidencio Burroughs MD LAB BLOOD ORDERABLES Final Res ult [facility] [address] [place] [address], [place] [phone] from Last 3 Months or Most Recently Relevant to Health Maintenance Additional Health Concerns Infection Onset Date Last Indicated ESBL 05/25/2025 05/25/2025 Insurance [employer] Care Teams Bog Worker Relationship Specialty Start Date End Date Cj Barber DO [address] [place] [phone] PCP - General 04/21/13
--- OUTSIDE RECORDS SUMMARY | 2025-08-25 15:32 | XMS_ITS | Encounter Summary ---
Author Organization [facility] Address [address] [place] [address] Care Team Providers Care Distillery Supervisor Name Role Phone Cj Barber DO Primary Care Provider [phone] Encounter Details Date Type Department Care Team (Late st Contact Info) Description 05/25/[address] [facility] - Main Lab 299 [facility] [place] [address] Hilton Saavedra, ALY [address] [place] [address] Urinary tract infection, site not specified; Benign [...] mirabilis ESBL(A) BAUDILIO 05/29/2025 8:45 AM EDT [facility] Comment: THIS ORGANISM IS POSITIVE [...] Pseudomonas aeruginosa(A) BAUDILIO 05/29/2025 8:45 AM EDT [facility] Comment: The organism value for this result has been updated. These results have been appended to the previously preliminary verified report. This is an edited result. Previous organism was Gram negative bacilli on 05/27/2025 at 1022 EDT. Urine Urine specimen obtained by clean catch procedure / Unknown 05/25/2025 05/25/2025 5:52 PM EDT Narrative [facility] - 05/29/2025 8:45 AM EDT [...] Susceptible Pseudomonas aeruginosa Cefepime DISK DIFFUSION Susceptible [facility] LAB MICROBIOLOGY - GENERAL TRISTEN GALAVIZ Final Result [facility] [address] [place] [address], documented in this encounter Visit Diagnoses Diagnosis Urinary tract infection, site not specified Benign prostatic hyperplasia with lower urinary tract symptoms documented in this encounter Additional Health Concerns Infection Onset Date Last Indicated Resolved Time ESBL 05/25/2025 05/25/2025 documented as of this encounter Care Teams Distillery Supervisor Relationship Specialty Start Date End Date Cj Barber DO [address] [place] [phone] PCP - General 04/21/13 documented as of this encounter
--- OUTSIDE RECORDS SUMMARY | 2025-08-25 15:32 | XMS_ITS | Encounter Summary ---
Author Organization [facility] Address [address] [place] [address] Care Team Providers Care Laboratory Apparatus Glass Blower Name Role Phone Cj Barber DO Primary Care Provider [phone] Encounter Details Date Type Department Care Team (Late st Contact Info) Description 03/01/2025 Lab Requisition [facility] - Main Lab 299 [facility] [place] [address] Fidencio Burroughs MD [address] [place] [address] Encounter for other general examination Social History [...] Result [facility] [address] [place] [address], * (ABNORMAL) Culture wound with gram stain [...] - GENERAL ORD ERABLES Final Result [facility] [address] [place] [address], documented in this encounter Visit Diagnoses Diagnosis Encounter for other general examination documented in this encounter Additional Health Concerns Infection Onset Date Last Indicated Resolved Time ESBL 05/25/2025 05/25/2025 documented as of this encounter Care Teams Laboratory Apparatus Glass Blower Relationship Specialty Start Date End Date Cj Barber DO [address] [place] [phone] PCP - General 04/21/13 documented as of this encounter
--- OUTSIDE RECORDS SUMMARY | 2025-08-25 15:32 | XMS_ITS | Encounter Summary ---
Author Organization [facility] Address [address] [place] [address] Care Team Providers Care Metal Plater Name Role Phone Cj Barber DO Primary Care Provider [phone] Encounter Details Date Type Department Care Team (Late st Contact Info) Description 12/17/2024 Lab Requisition [facility] - Main Lab 299 [facility] [place] [address] Horace Gu MD [address] [place] [phone] Urinary tract infection, site not specified Social [...] mirabilis(A ) BAUDILIO 12/19/2024 7:46 AM EST [facility] Comment: Edited result: Previously [...] MICROBIOLOGY - GENERAL TRISTEN GALAVIZ Final Result [facility] [address] [place] [address], documented in this encounter Visit Diagnoses Diagnosis Urinary tract infection, site not specified documented in this encounter Additional Health Concerns Infection Onset Date Last Indicated Resolved Time ESBL 05/25/2025 05/25/2025 documented as of this encounter Care Teams Metal Plater Relationship Specialty Start Date End Date Cj Barber DO [address] [place] [phone] PCP - General 04/21/13 documented as of this encounter
--- OUTSIDE RECORDS SUMMARY | 2025-08-25 15:32 | XMS_ITS | Encounter Summary ---
Author Organization [facility] Address [address] [place] [address] Care Team Providers Care Airplane Mechanic Apprentice Name Role Phone Cj Barber DO Primary Care Provider [phone] Encounter Details Date Type Department Care Team (Late st Contact Info) Description 02/19/2025 Lab Requisition [facility] - Main Lab 299 [facility] [place] [address] Fidencio Burroughs MD [address] [place] [phone] Encounter for other general examination Social History [...] LAB HEMETOLOGY METHOD 02/19/2025 12:54 PM EDT [facility] RBC 5.10 4.50 - 5.50 M/mcL LAB HEMETOLOGY METHOD 02/19/2025 12:54 PM EDT [facility] Hemoglobin 15.6 13.5 - 17.5 g/dL LAB HEMETOLOGY METHOD 02/19/2025 12:54 PM EDT [facility] Hematocrit 47.5 42.0 - 54.0 % LAB HEMETOLOGY METHOD 02/19/2025 12:54 PM EDT [facility] MCV 92.4 79.0 - 98.0 FL LAB HEMETOLOGY METHOD 02/19/2025 12:54 PM EDT [facility] MCH 30.4 27.0 - 32.0 pcg LAB HEMETOLOGY METHOD 02/19/2025 12:54 PM EDT [facility] MCHC 32.8 32.0 - 37.0 g/dL LAB HEMETOLOGY METHOD 02/19/2025 12:54 PM EDT [facility] RDW 12.8 11.0 - 15.0 % LAB HEMETOLOGY METHOD 02/19/2025 12:54 PM EDT [facility] Platelets 02/19/2025 12:54 PM EDT [facility] Comment:Not measured. Platel ets appear adequate but clumped Suggest drawing blue top tube with CBC MPV 10.7 7.0 - 11.0 FL LAB HEMETOLOGY METHOD 02/19/2025 12:54 PM EDT [facility] NRBC 0.0 <1.0 % LAB HEMETOLOGY METHOD 02/19/2025 12:54 PM EDT [facility] NRBC Absolute 0.00 <0.10 K/mcL LAB HEMETOLOGY METHOD 02/19/2025 12:54 PM [facility] Neutrophils Relative 83.5 % LAB HEMETOLOGY METHOD 02/19/2025 12:54 PM [facility] Lymphocytes Relative 10.5 % LAB HEMETOLOGY METHOD 02/19/2025 12:54 PM [facility] Monocytes Relative 5.4 % LAB HEMETOLOGY METHOD 02/19/2025 12:54 PM [facility] Eosinophils Relative 0.0 % LAB HEMETOLOGY METHOD 02/19/2025 12:54 PM [facility] Basophils Relative 0.1 % LAB HEMETOLOGY METHOD 02/19/2025 12:54 PM [facility] Immature Granulocytes Relative 0.5 % LAB HEMETOLOGY METHOD 02/19/2025 12:54 PM [facility] Neutrophils Absolute 8.77(H) 1.50 - 7.00 K/mcL LAB HEMETOLOGY METHOD 02/19/2025 12:54 PM [facility] Lymphocytes Absolute 1.10 1.00 - 5.00 K/mcL LAB HEMETOLOGY METHOD 02/19/2025 12:54 PM [facility] Monocytes Absolute 0.57 0.20 - 1.00 K/mcL LAB HEMETOLOGY METHOD 02/19/2025 12:54 PM [facility] Eosinophils Absolute 0.00 0.00 - 0.50 K/mcL LAB HEMETOLOGY METHOD 02/19/2025 12:54 PM [facility] Basophils Absolute 0.01 0.00 - 0.20 K/mcL LAB HEMETOLOGY METHOD 02/19/2025 12:54 PM [facility] Immature Granulocytes Absolute 0.05(H) 0.00 - 0.03 K/mcL LAB HEMETOLOGY METHOD 02/19/2025 12:54 PM EDT [facility] Blood Venous blood specimen / Unknown Venipuncture / Unknown 02/19/2025 5:42 AM EDT 02/19/2025 9:50 AM EDT Fidencio Burroughs MD LAB BLOOD ORDERABLES Final Res ult Performing Organization Address [facility]/ZIP Co de Phone Number [facility] [address] [place] [address], [place] [phone] * Magnesium (02/19/2025 5:42 AM EDT) Pathologist [facility] Magnesium 2.4 1.9 - 2.6 mg/dL LAB CHEMISTRY METHOD 02/19/2025 12:23 PM EDT [facility] Blood Venous blood specimen / Unknown Venipuncture / Unknown 02/19/2025 5:42 AM EDT 02/19/2025 9:50 AM EDT Fidencio Burroughs MD LAB BLOOD ORDERABLES Final Res ult Performing Organization Address [facility]/ZIP Co de Phone Number [facility] [address] [place] [address], [place] [phone] * (ABNORMAL) Comprehensive metabolic panel (02/19/2025 5:42 AM EDT) Sodium 131(L) 133 - 145 mmol/L LAB CHEMISTRY METHOD 02/19/2025 12:41 PM EDT [facility] Potassium 4.5 3.5 - 5.5 mmol/L LAB CHEMISTRY METHOD 02/19/2025 12:41 PM EDT [facility] Chloride 94(L) 96 - 110 mmol/L LAB CHEMISTRY METHOD 02/19/2025 12:41 PM EDT [facility] CO2 29 21 - 32 mmol/L LAB CHEMISTRY METHOD 02/19/2025 12:41 PM [facility] Anion Gap 8 3 - 11 LAB CHEMISTRY METHOD 02/19/2025 12:41 PM [facility] Glucose 61(L) 70 - 100 mg/dL LAB CHEMISTRY METHOD 02/19/2025 12:41 PM [facility] BUN 23 5 - 25 mg/dL LAB CHEMISTRY METHOD 02/19/2025 12:41 PM [facility] Creatinine 0.70 0.70 - 1.30 mg/dL LAB CHEMISTRY METHOD 02/19/2025 12:41 PM [facility] eGFR 90 >=60 mL/min/1. 73m2 LAB CHEMISTRY METHOD 02/19/2025 12:41 PM [facility] Comment:Calculation based on the Chronic Kidney Disease Epidemiology Collaboration (CKD-EPI) equation refit without adjustment for race. BUN/Creatinine Ratio 32.9 LAB CHEMISTRY METHOD 02/19/2025 12:41 PM [facility] Calcium 9.1 8.5 - 10.5 mg/dL LAB CHEMISTRY METHOD 02/19/2025 12:41 PM [facility] AST (SGOT) 31 10 - 42 unit/L LAB CHEMISTRY METHOD 02/19/2025 12:41 PM [facility] ALT (SGPT) 90(H) 10 - 60 unit/L LAB CHEMISTRY METHOD 02/19/2025 12:41 PM [facility] Alkaline Phosphatase 127(H) 42 - 121 unit/L LAB CHEMISTRY METHOD 02/19/2025 12:41 PM [facility] Total Protein 6.2 6.0 - 8.0 g/dL LAB CHEMISTRY METHOD 02/19/2025 12:41 PM [facility] Albumin 3.3 3.2 - 5.0 g/dL LAB CHEMISTRY METHOD 02/19/2025 12:41 PM [facility] Total Bilirubin 0.7 0.0 - 1.4 mg/dL LAB CHEMISTRY METHOD 02/19/2025 12:41 PM EDT [facility] Blood Venous blood specimen / Unknown Venipuncture / Unknown 02/19/2025 5:42 AM EDT 02/19/2025 9:50 AM EDT us Fidencio Burroughs MD LAB BLOOD ORDERABLES Final Res ult [facility] [address] [place] [address], documented in this encounter Visit Diagnoses Diagnosis Encounter for other general examination documented in this encounter Additional Health Concerns Infection Onset Date Last Indicated Resolved Time ESBL 05/25/2025 05/25/2025 documented as of this encounter Care Teams Airplane Mechanic Apprentice Relationship Specialty Start Date End Date Cj Barber DO [address] [place] [phone] PCP - General 04/21/13 documented as of this encounter
== END 2025-08-25 14:48 | disposition home or self-care (01) ==
LOC: HO.HMCSH 13:53
PROVIDERS: PCP Internal Medicine; Visit Provider Physician Assistant Medical
DX: L30.9 Dermatitis, unspecified (principal); L03.90 Cellulitis, unspecified; Z23 Encounter for immunization

== ENCOUNTER → 2025-08-25 13:53 | Outpatient (BNVA) | payer MEDICARE, SELFPAY | PROVIDERS: PCP Internal Medicine; Visit Provider Physician Assistant Medical | DX: K21.9 Gastro-esophageal reflux disease without esophagitis (principal); L30.9 Dermatitis, unspecified; L03.90 Cellulitis, unspecified; Z23 Encounter for immunization | CPT/HCPCS: 90471; 90656; 96127; 99212 ==

== ENCOUNTER 2025-09-09 11:15 | Outpatient (RCR) | payer MEDICARE, SELFPAY | END 2025-09-09 16:49 | disposition home or self-care (01) | LOC: HO.WCC 11:15 | PROVIDERS: PCP Physician Assistant Medical; Visit Provider Surgery Vascular Surgery | DX: L20.89 Other atopic dermatitis (principal); I87.2 Venous insufficiency (chronic) (peripheral); I10 Essential (primary) hypertension; I73.9 Peripheral vascular disease, unspecified; R60.1 Generalized edema; Z87.891 Personal history of nicotine dependence; Z79.899 Other long term (current) drug therapy | CPT/HCPCS: 99211; 99214 ==

== ENCOUNTER 2025-09-15 11:02 | Outpatient (AMB) | payer MEDICARE, SELFPAY ==
[2025-09-15 11:12] LABS: Prothrombin Time Whole Bld POC 29.7 sec (11.1-13.5); ~PT, ~INR - Anti Coag Clinic 2.5 (0.9-1.1)
--- NOTE | 2025-09-15 11:14 | MHC.OFFVISCO ---
Intake Intake Visit Reasons: Anticoagulation Allergies No Known Allergies (No Known Allergies*) Allergy (Verified 09/15/25 11:07) Medication List - Last Reconciled 09/15/25 by Fabienne Armstrong RN aspirin 81 mg PO DAILY atorvastatin 80 mg PO BEDTIME clotrimazole 1% 1 appl topical BID hydrocortisone 2.5% 1 appl topical BID PRN 1 week isosorbide mononitrate ER 30 mg PO DAILY metoprolol succinate ER 25 mg PO DAILY mupirocin 2% 1 appl topical BID nitroglycerin 0.4 mg sublingual Q5M PRN timolol maleate 0.5% 1 drp ophthalmic (eye) DAILY warfarin 6 mg See Protocol PO DAILY warfarin 9 mg PO DAILY Nursing Note INR: 2.5 in therapeutic range of 2-3 Medications and supplements reviewed No changes in health, diet, medications, or supplements, Denies any signs and symptoms of bleeding or bruising or clotting. Bleeding, bruising, clotting discussed Nutritional guidance given Dose: 6mg X 6 days and 9mg X 1 day (Sun) F/U INR: 4 weeks Patient verbalizes understanding of instructions given Anti-Coag Initial Assessment Social Hx Patient Tobacco Use Status: Former Tobacco user alcohol intake: current Alcohol intake frequency: does not drink Cardiovascular Hx: HTN, PR and Arrhythmias Lung Disease HX: DVT/PE Musculoskeletal Hx: Arthritis Blood Disorder Hx: Hyperlipidemia Hx: Prostate Cancer HX: No Psych. Illness/Depression: No Coding Level of Care Code Est Patient Level 1 Diagnoses Current use of anticoagulant therapy Z79.01 Assessment & Plan Assessment & Plan (1) Current use of anticoagulant therapy: Code(s): Z79.01 - FDC (current) use of anticoagulants Category: Medical
== END 2025-09-15 11:20 | disposition home or self-care (01) ==
LOC: HO.ACS 11:02
PROVIDERS: PCP Physician Assistant Medical; Visit Provider Internal Medicine Medical Oncology
DX: Z79.01 Long term (current) use of anticoagulants (principal)

== ENCOUNTER → 2025-09-15 11:02 | Outpatient (BNVA) | payer MEDICARE, SELFPAY | PROVIDERS: PCP Physician Assistant Medical; Visit Provider Internal Medicine Medical Oncology | DX: Z79.01 Long term (current) use of anticoagulants (principal) | CPT/HCPCS: 85610; 99211 ==

== ENCOUNTER 2025-10-13 10:50 | Outpatient (AMB) | payer MEDICARE, SELFPAY ==
--- OUTSIDE RECORDS SUMMARY | 2024-12-30 04:30 | XMS_ITS ---
Author Organization [facility] Address [address] [place] [address] Care Team Providers Care Fish Machine Feeder Name Role Phone Aly Crespo Primary Care Provider Slade Maznano Unavailable [phone] Edgardo Pascual [phone] REASON FOR VISIT r/s for sooner apt Encounters Encounter Location Date Provider Diagnosis [address] [phone] 12/30/2024 Edgardo Pascual Plan Of Treatment Next Appt Details Provider Name:Slade Manzano , 11/04/2025 12:15:00 PM, [address] [place], [address], Progress Notes * Gordo BULLOCK HDOB:1940 (85 yo M)Acc No.[id number]:12/30/2024 Progress Notes Patient: Gordo GUADARRAMA Provider: Shabnam Pascual D.P.M. :1940 A ge:84 Y S ex:Male Date:12/30/2024 Address:[address] [place] [address] [id number] Pcp:Aly Crespo Subjective: * Chief Complaints: * 1 . R/s for sooner apt. * Medical History: Objective: * Vitals: Assessment: Plan: * Treatment: * Images: * The named appointment provid er may or may not be the originator of this progress note, and it is not deemed complete until electronically signed by the appointment provider. Sign off status: Pending * Provider: Brigette AnthonyPNii Date: 0 12/30/2024 Generated for Zee vizcarra/Brandin/Sherrell on: 12/13/2024 04:19 PM EST
[2025-10-13 11:09] LABS: Prothrombin Time Whole Bld POC 23.7 sec (11.1-13.5); ~PT, ~INR - Anti Coag Clinic 2.0 (0.9-1.1)
--- NOTE | 2025-10-13 11:13 | MHC.OFFVISCO ---
Intake Intake Visit Reasons: Anticoagulation Allergies No Known Allergies (No Known Allergies*) Allergy (Verified 10/13/25 11:04) Medication List - Last Reconciled 10/13/25 by Fabienne Armstrong RN aspirin 81 mg PO DAILY atorvastatin 80 mg PO BEDTIME clotrimazole 1% 1 appl topical BID hydrocortisone 2.5% 1 appl topical BID PRN 1 week isosorbide mononitrate ER 30 mg PO DAILY metoprolol succinate ER 25 mg PO DAILY mupirocin 2% 1 appl topical BID nitroglycerin 0.4 mg sublingual Q5M PRN timolol maleate 0.5% 1 drp ophthalmic (eye) DAILY warfarin 6 mg See Protocol PO DAILY 90 days warfarin 9 mg See Protocol PO DAILY 90 days Nursing Note INR: 2.0 in therapeutic range of 2-3 Pt states he thinks he missed a dose last weekend. Medications and supplements reviewed No changes in health, diet, medications, or supplements, Denies any signs and symptoms of bleeding or bruising or clotting. Bleeding, bruising, clotting discussed Nutritional guidance given to avoid greens X 2 days and to have a serving each of those days of foods that raise the INR Dose: 6mg X 6 days and 9mg X 1 day (Sun) F/U INR: 4 weeks Patient verbalizes understanding of instructions given Anti-Coag Initial Assessment Social Hx Patient Tobacco Use Status: Former Tobacco user alcohol intake: current Alcohol intake frequency: does not drink Cardiovascular Hx: HTN, UT and Arrhythmias Lung Disease HX: DVT/PE Musculoskeletal Hx: Arthritis Blood Disorder Hx: Hyperlipidemia Hx: Prostate Cancer HX: No Psych. Illness/Depression: No Coding Level of Care Code Est Patient Level 1 Diagnoses Current use of anticoagulant therapy Z79.01 Assessment & Plan Assessment & Plan (1) Current use of anticoagulant therapy: Code(s): Z79.01 - termite exterminator helper (current) use of anticoagulants Category: Medical
--- OUTSIDE RECORDS SUMMARY | 2025-10-13 16:19 | XMS_ITS | Encounter Summary ---
Author Organization [facility] Address [address] [place] [address] Care Team Providers Care Manager Relationship Name Role Phone Cj Barber DO Primary Care Provider Encounter Details Date Type Department Care Team (Late st Contact Info) Description 04/08/2025 Lab Requisition [facility] - Main Lab 299 [facility] [place] [phone] Luis Miguel Caceres MD [address] [place] [phone] Gross hematuria Social History Tobacco Use Types [...] if clinically indicated. 04/10/2025 10:30 AM EDT [facility] Urine Indwelling urinary catheter / Unknown 04/08/2025 04/08/2025 12:46 PM EDT us Luis Miguel Caceres MD LAB MICROBIOLOGY - GENERAL O RDERABLES Final Result [facility] [address] [place] [address], documented in this encounter Visit Diagnoses Diagnosis Gross hematuria documented in this encounter Additional Health Concerns Infection Onset Date Last Indicated Resolved Time ESBL 05/25/2025 05/25/2025 documented as of this encounter Care Teams Manager Relationship Relationship Specialty Start Date End Date Cj Barber DO [address] [place] [phone] PCP - General 04/21/13 documented as of this encounter
--- OUTSIDE RECORDS SUMMARY | 2025-10-13 16:19 | XMS_ITS | Encounter Summary ---
Author Organization [facility] Address [address] [place] [address] Care Team Providers Care Byproducts Supervisor Name Role Phone Cj Barber DO Primary Care Provider [phone] Encounter Details Date Type Department Care Team (Late st Contact Info) Description 03/01/2025 Lab Requisition [facility] - Main Lab 299 [facility] [place] [address] Fidencio Burroughs MD [address] [place] [address] Encounter for other general examination Social History [...] bliniensis( A) 03/07/2025 12:41 PM EDT [facility] Comment: Edited result: Previously reported as Yeast on 03/07/2025 at 1047 EDT. Swab Penile structure / Unknown 03/01/2025 5:22 AM EDT 03/01/2025 10:41 AM EDT Fidencio Burroughs MD LAB MICROBIOLOGY - GENERAL ORD ERABLES Final Result [facility] [address] [place] [address], * (ABNORMAL) Culture wound with gram stain (03/01/2025 5:22 AM EDT) Culture, Wound Proteus mirabilis(A) BAUDILIO 03/09/2025 9:56 AM EDT [facility] [...] faecalis(A) BAUDILIO 03/09/2025 9:56 AM EDT [facility] Comment: The organism value for this result has been updated. These results have been appended to the previously preliminary verified report. This is an edited result. Previous organism was Streptococcus Gamma non hemolytic on 03/06/2025 at 0911 EDT. Culture, Wound Pseudomonas aeruginosa(A) BAUDILIO 03/09/2025 9:56 AM EDT [facility] Comment: The organism value for this result has been updated. These results have been appended to the previously preliminary verified report. This is an edited result. Previous organism was Gram negative bacilli on 03/07/2025 at 1012 EDT. Gram Stain Result Moderate Polymorphonuclear leukocytes 03/09/2025 9:56 AM EDT [facility] Gram Stain Result Few Epithelial cells 03/09/2025 9:56 AM EDT [facility] Gram Stain Result No organisms seen 03/09/2025 9:56 AM EDT [facility] Swab Penile structure / Unknown [...] - GENERAL ORD ERABLES Final Result [facility] [address] [place] [address], documented in this encounter Visit Diagnoses Diagnosis Encounter for other general examination documented in this encounter Additional Health Concerns Infection Onset Date Last Indicated Resolved Time ESBL 05/25/2025 05/25/2025 documented as of this encounter Care Teams Byproducts Supervisor Relationship Specialty Start Date End Date Cj Braber DO [address] [place] [phone] PCP - General 04/21/13 documented as of this encounter
--- OUTSIDE RECORDS SUMMARY | 2025-10-13 16:19 | XMS_ITS | Encounter Summary ---
Author Organization [facility] Address [address] [place] [address] Care Team Providers Care Personnel Manager Name Role Phone Cj Barber DO Primary Care Provider [phone] Encounter Details Date Type Department Care Team (Late st Contact Info) Description 02/25/2025 Lab Requisition [facility] - Main Lab 299 [facility] [place] [address] Fidencio Burroughs MD [address] [place] [phone] Hematuria, unspecified Social History Tobacco Use Types [...] Culture urine (02/24/2025 6:00 PM EDT) Pathologist [facility] Culture, Urine 10,000-49,0 00 CFU/mL Lucrecia albicans/du bliniensis( A) 02/27/2025 12:30 PM EDT [facility] Comment: Edited result: Previously reported as Yeast on 02/26/2025 at 1030 EDT. Urine Indwelling urinary catheter / Unknown 02/24/2025 6:00 PM EDT 02/25/2025 12:09 PM EDT us Fidencio Burroughs MD LAB MICROBIOLOGY - GENERAL ORD ERABLES Final Result [facility] [address] [place] [address], [place] [phone] * (ABNORMAL) Urinalysis with reflex microscopic and culture (02/24/2025 6:00 PM EDT) Pathologist [facility] Specific [place] Urine 1.023 1.003 - 1.030 LAB URINALYSIS [...] Final Res ult Performing Organization Address [facility]/ZIP Co de Phone Number [facility] [address] [place] [address], [place] [phone] * Mckeon urine culture tube (02/24/2025 6:00 PM EDT) Extra Tube Hold for add-ons. 02/25/2025 1:01 PM EDT [facility] Comment:Auto resulted. Urine Indwelling urinary catheter / Unknown 02/24/2025 6:00 PM EDT 02/25/2025 11:30 AM EDT Fidencio Burroughs MD LAB URINE ORDERABLES Final Res ult Performing Organization Address 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
--- OUTSIDE RECORDS SUMMARY | 2025-10-13 16:19 | XMS_ITS | Encounter Summary ---
Author Organization [facility] Address [address] [place] [address] Care Team Providers Care Programmer Operator Numerical Control Name Role Phone Cj Barber DO Primary Care Provider [phone] Encounter Details Date Type Department Care Team (Late st Contact Info) Description 02/26/2025 Lab Requisition [facility] - Main Lab 299 [facility] [place] [address] Fidencio Burroughs MD [address] [place] [address] Encounter for other general examination Social History [...] CBC auto differential (02/26/2025 6:35 AM EDT) [facility] WBC 11.9(H) 4.8 - [...] Res ult [facility] [address] [place] [address], * (ABNORMAL) Comprehensive metabolic panel (02/26/2025 6:35 [...] Res ult [facility] [address] [place] [address], documented in this encounter Visit Diagnoses Diagnosis Encounter for other general examination documented in this encounter Additional Health Concerns Infection Onset Date Last Indicated Resolved Time ESBL 05/25/2025 05/25/2025 documented as of this encounter Care Teams Programmer Operator Numerical Control Relationship Specialty Start Date End Date Cj Barber DO [address] [place] [phone] PCP - General 04/21/13 documented as of this encounter
--- OUTSIDE RECORDS SUMMARY | 2025-10-13 16:19 | XMS_ITS | Encounter Summary ---
Author Organization [facility] Address [address] [place] [address] Care Team Providers Care Business Systems Manager Name Role Phone Cj Barber DO Primary Care Provider [phone] Encounter Details Date Type Department Care Team (Late st Contact Info) Description 03/01/2025 Lab Requisition [facility] - Main Lab 299 [facility] [place] [address] Fidencio Burroughs MD [address] [place] [phone] Encounter for other general examination Social History [...] 5:29 AM EDT) [facility] WBC 8.8 4.8 - 10.8 K/mcL LAB HEMETOLOGY METHOD 03/01/2025 11:58 AM [facility] RBC 3.60(L) 4.50 - 5.50 M/mcL LAB HEMETOLOGY METHOD 03/01/2025 11:58 AM [facility] Hemoglobin 11.0(L) 13.5 - 17.5 g/dL LAB HEMETOLOGY METHOD 03/01/2025 11:58 AM [facility] Hematocrit 33.0(L) 42.0 - 54.0 % LAB HEMETOLOGY METHOD 03/01/2025 11:58 AM [facility] MCV 91.2 79.0 - 98.0 FL LAB HEMETOLOGY METHOD 03/01/2025 11:58 AM [facility] MCH 30.4 27.0 - 32.0 pcg LAB HEMETOLOGY METHOD 03/01/2025 11:58 AM [facility] MCHC 33.3 32.0 - 37.0 g/dL LAB HEMETOLOGY METHOD 03/01/2025 11:58 AM [facility] RDW 13.9 11.0 - 15.0 % LAB HEMETOLOGY METHOD 03/01/2025 11:58 AM [facility] Platelets 03/01/2025 11:58 AM [facility] Comment:Not measured. Unable to quantitate due to platelet clumping MPV 10.2 7.0 - 11.0 FL LAB HEMETOLOGY METHOD 03/01/2025 11:58 AM [facility] NRBC 0.0 <1.0 % LAB HEMETOLOGY METHOD 03/01/2025 11:58 AM [facility] NRBC Absolute 0.00 <0.10 K/mcL LAB HEMETOLOGY METHOD 03/01/2025 11:58 AM [facility] Neutrophils Relative 76.0 % LAB HEMETOLOGY METHOD 03/01/2025 11:58 AM [facility] Lymphocytes Relative 13.4 % LAB HEMETOLOGY METHOD 03/01/2025 11:58 AM [facility] Monocytes Relative 9.0 % LAB HEMETOLOGY METHOD 03/01/2025 11:58 AM [facility] Eosinophils Relative 1.1 % LAB HEMETOLOGY METHOD 03/01/2025 11:58 AM [facility] Basophils Relative 0.2 % LAB HEMETOLOGY METHOD 03/01/2025 11:58 AM [facility] Immature Granulocytes Relative 0.3 % LAB HEMETOLOGY METHOD 03/01/2025 11:58 AM [facility] Neutrophils Absolute 6.69 1.50 - 7.00 K/mcL LAB HEMETOLOGY METHOD 03/01/2025 11:58 AM [facility] Lymphocytes Absolute 1.18 1.00 - 5.00 K/mcL LAB HEMETOLOGY METHOD 03/01/2025 11:58 AM [facility] Monocytes Absolute 0.79 0.20 - 1.00 K/mcL LAB HEMETOLOGY METHOD 03/01/2025 11:58 AM [facility] Eosinophils Absolute 0.10 0.00 - 0.50 K/mcL LAB HEMETOLOGY METHOD 03/01/2025 11:58 AM [facility] Basophils Absolute 0.02 0.00 - 0.20 K/mcL LAB HEMETOLOGY METHOD 03/01/2025 11:58 AM [facility] Immature Granulocytes Absolute 0.03 0.00 - 0.03 K/mcL LAB HEMETOLOGY METHOD 03/01/2025 11:58 AM [facility] Blood Venous blood specimen / Unknown Venipuncture / Unknown 03/01/2025 5:29 AM EDT 03/01/2025 9:52 AM EDT us Fidencio Burroughs MD LAB BLOOD ORDERABLES Final Res ult [facility] [address] [place] [address], [place] [phone] * (ABNORMAL) Comprehensive metabolic panel (03/01/2025 5:29 AM EDT) Sodium 137 133 - 145 mmol/L LAB CHEMISTRY METHOD 03/01/2025 12:08 PM [facility] Potassium 4.1 3.5 - 5.5 mmol/L LAB CHEMISTRY METHOD 03/01/2025 12:08 PM [facility] Chloride 101 96 - 110 mmol/L LAB CHEMISTRY METHOD 03/01/2025 12:08 PM [facility] CO2 30 21 - 32 mmol/L LAB CHEMISTRY METHOD 03/01/2025 12:08 PM [facility] Anion Gap 6 3 - 11 LAB CHEMISTRY METHOD 03/01/2025 12:08 PM [facility] Glucose 82 70 - 100 mg/dL LAB CHEMISTRY METHOD 03/01/2025 12:08 PM [facility] BUN 15 5 - 25 mg/dL LAB CHEMISTRY METHOD 03/01/2025 12:08 PM [facility] Creatinine 0.41(L) 0.70 - 1.30 mg/dL LAB CHEMISTRY METHOD 03/01/2025 12:08 PM [facility] eGFR 106 >=60 mL/min/1. 73m2 LAB CHEMISTRY METHOD 03/01/2025 12:08 PM [facility] Comment:Calculation based on the Chronic Kidney Disease Epidemiology Collaboration (CKD-EPI) equation refit without adjustment for race. BUN/Creatinine Ratio 36.6 LAB CHEMISTRY METHOD 03/01/2025 12:08 PM [facility] Calcium 8.7 8.5 - 10.5 mg/dL LAB CHEMISTRY METHOD 03/01/2025 12:08 PM [facility] AST (SGOT) 37 10 - 42 unit/L LAB CHEMISTRY METHOD 03/01/2025 12:08 PM [facility] ALT (SGPT) 64(H) 10 - 60 unit/L LAB CHEMISTRY METHOD 03/01/2025 12:08 PM [facility] Alkaline Phosphatase 105 42 - 121 unit/L LAB CHEMISTRY METHOD 03/01/2025 12:08 PM [facility] Total Protein 5.1(L) 6.0 - 8.0 g/dL LAB CHEMISTRY METHOD 03/01/2025 12:08 PM [facility] Albumin 2.7(L) 3.2 - 5.0 g/dL LAB CHEMISTRY METHOD 03/01/2025 12:08 PM [facility] Total Bilirubin 1.1 0.0 - 1.4 mg/dL LAB CHEMISTRY METHOD 03/01/2025 12:08 PM [facility] Blood Venous blood specimen / Unknown Venipuncture / Unknown 03/01/2025 5:29 AM EDT 03/01/2025 9:52 AM EDT us Fidencio Burroughs MD LAB BLOOD ORDERABLES Final Res ult [facility] [address] [place] [address], documented in this encounter Visit Diagnoses Diagnosis Encounter for other general examination documented in this encounter Additional Health Concerns Infection Onset Date Last Indicated Resolved Time ESBL 05/25/2025 05/25/2025 documented as of this encounter Care Teams Business Systems Manager Relationship Specialty Start Date End Date Cj Barber DO [address] [place] [phone] PCP - General 04/21/13 documented as of this encounter
--- OUTSIDE RECORDS SUMMARY | 2025-10-13 16:19 | XMS_ITS | Encounter Summary ---
Author Organization [facility] Address [address] [place] [address] Care Team Providers Care Extract Puller Name Role Phone Cj Barber DO Primary Care Provider [phone] Encounter Details Date Type Department Care Team (Late st Contact Info) Description 02/24/2025 Lab Requisition [facility] - Main Lab 299 [facility] [address] Fidencio Burroughs MD [address] [place] [address] Encounter for other general examination Social History [...] Res ult [facility] [address] [place] [address], [place] [phone] * (ABNORMAL) Comprehensive metabolic panel (02/24/2025 5:01 [...] Res ult [facility] [address] [place] [address], documented in this encounter Visit Diagnoses Diagnosis Encounter for other general examination documented in this encounter Additional Health Concerns Infection Onset Date Last Indicated Resolved Time ESBL 05/25/2025 05/25/2025 documented as of this encounter Care Teams Extract Puller Relationship Specialty Start Date End Date Cj Barber DO [address] [place] [phone] PCP - General 04/21/13 documented as of this encounter
--- OUTSIDE RECORDS SUMMARY | 2025-10-13 16:19 | XMS_ITS | Encounter Summary ---
Author Organization [facility] Address [address] [place] [address] Care Team Providers Care Competitive Shopper Name Role Phone Cj Barber DO Primary Care Provider [phone] Encounter Details Date Type Department Care Team (Late st Contact Info) Description 02/19/2025 Lab Requisition [facility] - Main Lab 299 [facility] [place] [address] Fidencio Burroughs MD [address] [place] [address] Encounter for other general examination Social History [...] LAB HEMETOLOGY METHOD 02/19/2025 12:54 PM EDT [facility] RBC 5.10 4.50 - 5.50 M/mcL LAB HEMETOLOGY METHOD 02/19/2025 12:54 PM EDT [facility] Hemoglobin 15.6 13.5 - 17.5 g/dL LAB HEMETOLOGY METHOD 02/19/2025 12:54 PM EDT [facility] Hematocrit 47.5 42.0 - 54.0 % LAB HEMETOLOGY METHOD 02/19/2025 12:54 PM EDT [facility] MCV 92.4 79.0 - 98.0 FL LAB HEMETOLOGY METHOD 02/19/2025 12:54 PM EDT [facility] MCH 30.4 27.0 - 32.0 pcg LAB HEMETOLOGY METHOD 02/19/2025 12:54 PM EDT [facility] MCHC 32.8 32.0 - 37.0 g/dL LAB HEMETOLOGY METHOD 02/19/2025 12:54 PM EDT [facility] RDW 12.8 11.0 - 15.0 % LAB HEMETOLOGY METHOD 02/19/2025 12:54 PM EDT [facility] Platelets 02/19/2025 12:54 PM EDT [facility] Comment:Not measured. Platel ets appear adequate but clumped Suggest drawing blue top tube with CBC MPV 10.7 7.0 - 11.0 FL LAB HEMETOLOGY METHOD 02/19/2025 12:54 PM EDT [facility] NRBC 0.0 <1.0 % LAB HEMETOLOGY METHOD 02/19/2025 12:54 PM EDT [facility] NRBC Absolute 0.00 <0.10 K/mcL LAB HEMETOLOGY METHOD 02/19/2025 12:54 PM [facility] Neutrophils Relative 83.5 % LAB HEMETOLOGY METHOD 02/19/2025 12:54 PM [facility] Lymphocytes Relative 10.5 % LAB HEMETOLOGY METHOD 02/19/2025 12:54 PM [facility] Monocytes Relative 5.4 % LAB HEMETOLOGY METHOD 02/19/2025 12:54 PM [facility] Eosinophils Relative 0.0 % LAB HEMETOLOGY METHOD 02/19/2025 12:54 PM [facility] Basophils Relative 0.1 % LAB HEMETOLOGY METHOD 02/19/2025 12:54 PM [facility] Immature Granulocytes Relative 0.5 % LAB HEMETOLOGY METHOD 02/19/2025 12:54 PM [facility] Neutrophils Absolute 8.77(H) 1.50 - 7.00 K/mcL LAB HEMETOLOGY METHOD 02/19/2025 12:54 PM [facility] Lymphocytes Absolute 1.10 1.00 - 5.00 K/mcL LAB HEMETOLOGY METHOD 02/19/2025 12:54 PM [facility] Monocytes Absolute 0.57 0.20 - 1.00 K/mcL LAB HEMETOLOGY METHOD 02/19/2025 12:54 PM [facility] Eosinophils Absolute 0.00 0.00 - 0.50 K/mcL LAB HEMETOLOGY METHOD 02/19/2025 12:54 PM [facility] Basophils Absolute 0.01 0.00 - 0.20 K/mcL LAB HEMETOLOGY METHOD 02/19/2025 12:54 PM [facility] Immature Granulocytes Absolute 0.05(H) 0.00 - 0.03 K/mcL LAB HEMETOLOGY METHOD 02/19/2025 12:54 PM EDT [facility] Blood Venous blood specimen / Unknown Venipuncture / Unknown 02/19/2025 5:42 AM EDT 02/19/2025 9:50 AM EDT Fidencio Burroughs MD LAB BLOOD ORDERABLES Final Res ult Performing Organization Address [facility]/ZIP Co de Phone Number [facility] [address] [place] [address], [place] [phone] * Magnesium (02/19/2025 5:42 AM EDT) Pathologist [facility] Magnesium 2.4 1.9 - 2.6 mg/dL LAB CHEMISTRY METHOD 02/19/2025 12:23 PM EDT [facility] Blood Venous blood specimen / Unknown Venipuncture / Unknown 02/19/2025 5:42 AM EDT 02/19/2025 9:50 AM EDT Fidencio Burroughs MD LAB BLOOD ORDERABLES Final Res ult Performing Organization Address [facility]/ZIP Co de Phone Number [facility] [address] [place] [address], [place] [phone] * (ABNORMAL) Comprehensive metabolic panel (02/19/2025 5:42 AM EDT) Sodium 131(L) 133 - 145 mmol/L LAB CHEMISTRY METHOD 02/19/2025 12:41 PM EDT [facility] Potassium 4.5 3.5 - 5.5 mmol/L LAB CHEMISTRY METHOD 02/19/2025 12:41 PM EDT [facility] Chloride 94(L) 96 - 110 mmol/L LAB CHEMISTRY METHOD 02/19/2025 12:41 PM EDT [facility] CO2 29 21 - 32 mmol/L LAB CHEMISTRY METHOD 02/19/2025 12:41 PM [facility] Anion Gap 8 3 - 11 LAB CHEMISTRY METHOD 02/19/2025 12:41 PM [facility] Glucose 61(L) 70 - 100 mg/dL LAB CHEMISTRY METHOD 02/19/2025 12:41 PM [facility] BUN 23 5 - 25 mg/dL LAB CHEMISTRY METHOD 02/19/2025 12:41 PM [facility] Creatinine 0.70 0.70 - 1.30 mg/dL LAB CHEMISTRY METHOD 02/19/2025 12:41 PM [facility] eGFR 90 >=60 mL/min/1. 73m2 LAB CHEMISTRY METHOD 02/19/2025 12:41 PM [facility] Comment:Calculation based on the Chronic Kidney Disease Epidemiology Collaboration (CKD-EPI) equation refit without adjustment for race. BUN/Creatinine Ratio 32.9 LAB CHEMISTRY METHOD 02/19/2025 12:41 PM [facility] Calcium 9.1 8.5 - 10.5 mg/dL LAB CHEMISTRY METHOD 02/19/2025 12:41 PM [facility] AST (SGOT) 31 10 - 42 unit/L LAB CHEMISTRY METHOD 02/19/2025 12:41 PM [facility] ALT (SGPT) 90(H) 10 - 60 unit/L LAB CHEMISTRY METHOD 02/19/2025 12:41 PM [facility] Alkaline Phosphatase 127(H) 42 - 121 unit/L LAB CHEMISTRY METHOD 02/19/2025 12:41 PM [facility] Total Protein 6.2 6.0 - 8.0 g/dL LAB CHEMISTRY METHOD 02/19/2025 12:41 PM [facility] Albumin 3.3 3.2 - 5.0 g/dL LAB CHEMISTRY METHOD 02/19/2025 12:41 PM [facility] Total Bilirubin 0.7 0.0 - 1.4 mg/dL LAB CHEMISTRY METHOD 02/19/2025 12:41 PM EDT [facility] Blood Venous blood specimen / Unknown Venipuncture / Unknown 02/19/2025 5:42 AM EDT 02/19/2025 9:50 AM EDT us Fidencio Burroughs MD LAB BLOOD ORDERABLES Final Res ult [facility] [address] [place] [address], documented in this encounter Visit Diagnoses Diagnosis Encounter for other general examination documented in this encounter Additional Health Concerns Infection Onset Date Last Indicated Resolved Time ESBL 05/25/2025 05/25/2025 documented as of this encounter Care Teams Competitive Shopper Relationship Specialty Start Date End Date Cj Barber DO [address] [place] [phone] PCP - General 04/21/13 documented as of this encounter
--- OUTSIDE RECORDS SUMMARY | 2025-10-13 16:19 | XMS_ITS | Encounter Summary ---
Author Organization [facility] Address [address] [place] [address] Care Team Providers Care Customer Relations Advisor Name Role Phone Cj Barber DO Primary Care Provider [phone] Encounter Details Date Type Department Care Team (Late st Contact Info) Description 01/25/2025 Lab Requisition [facility] - Main Lab 299 [facility] [place] [address] Fidencio Burroughs MD [address] [place] [phone] Encounter for other general examination Social History [...] AM EST) WBC 7.8 4.8 - 10.8 /[facility] LAB HEMETOLOGY METHOD 01/25/2025 11:36 AM [...] Res ult [facility] [address] [place] [address], [place] [phone] * (ABNORMAL) Comprehensive metabolic panel (01/25/2025 7:02 AM EST) Sodium 137 133 - 145 mmol/L LAB CHEMISTRY METHOD 01/25/2025 11:50 AM EST [facility] Potassium 3.9 3.5 [...] Res ult [facility] [address] [place] [address], documented in this encounter Visit Diagnoses Diagnosis Encounter for other general examination documented in this encounter Additional Health Concerns Infection Onset Date Last Indicated Resolved Time ESBL 05/25/2025 05/25/2025 documented as of this encounter Care Teams Customer Relations Advisor Relationship Specialty Start Date End Date Cj Barber DO [address] [place] [phone] PCP - General 04/21/13 documented as of this encounter
--- OUTSIDE RECORDS SUMMARY | 2025-10-13 16:20 | XMS_ITS | Clinical Summary ---
Author Organization [employer] Address [address] [place] [address] Phone Care Team Providers Care Assembler Brazer Name Role Phone Cj Barber DO Primary Care Provider [phone] Allergies No known active allergies Medications aspirin [...] 2 5 Active warfarin (COUMADIN) 5 mg tabletIndication s:PAF [...] Overview (04/27/2025): January 2025 - admitted to [facility] with gait imbalance found to have a UTI, paroxysmal atrial fibrillation and provoked acute pulmonary embolism of the left lower lobe; transferred to [facility] and felt to be elevated risk [...] high-dose atorvastatin.` Coronary artery disease invo lving quileute coronary artery of quileute heart without angina pectoris 06/11/2022 Overview (04/27/2025): [...] stenting in the setting of an inferior AL in 2011. He has not had overt [...] Description 08/09/2025 1:10 PM EDT Office Visit [facility] [address] [place] [address] Shahid Ramos NP PAF (paroxysmal atrial fibrillation) (CMS/HCC V24, CMS/HCC V28) (Primary Dx); Acute pulmonary embolism, unspecified pulmonary embolism type, unspecified whether acute cor pulmonale present ([facility] V24, [facility] V28); Coronary artery disease involving quileute coronary artery of quileute heart without angina pectoris; Hypercholesterolemia from Last 3 Months Medical History Medical History Date Comments Multifactorial gait disorder Hypertension Hyperlipidemia Myelopathy ([facility] V24, [facility] V28) Social History Tobacco Use Types [...] 11/07/2022 Depression Screening 11/24/2024 COVID-19 Vaccine ( - season) 2025 11/23/2021, 01/29/2021, 01/08/2021 Influenza Vaccine [...] Procedure Name Priority Date/Time Associated Diagnosis Comments COMPREHENSIVE METABOLIC PANEL Routine 03/07/2025 5:15 AM EDT Encounter for other general examination from Last 3 Months or Most Recently Relevant to Health Maintenance Results * (ABNORMAL) Comprehensive metabolic panel (03/07/2025 5:15 AM EDT) Sodium 137 133 - 145 mmol/L LAB CHEMISTRY METHOD 03/07/2025 12:39 PM [facility] Potassium 3.8 3.5 - 5.5 mmol/L LAB CHEMISTRY METHOD 03/07/2025 12:39 PM [facility] Chloride 101 96 - 110 mmol/L LAB CHEMISTRY METHOD 03/07/2025 12:39 PM [facility] CO2 32 21 - 32 mmol/L LAB CHEMISTRY METHOD 03/07/2025 12:39 PM [facility] Anion Gap 4 3 - 11 LAB CHEMISTRY METHOD 03/07/2025 12:39 PM [facility] Glucose 77 70 - 100 mg/dL LAB CHEMISTRY METHOD 03/07/2025 12:39 PM [facility] BUN 14 5 - 25 mg/dL LAB CHEMISTRY METHOD 03/07/2025 12:39 PM [facility] Creatinine 0.51(L) 0.70 - 1.30 mg/dL LAB CHEMISTRY METHOD 03/07/2025 12:39 PM [facility] eGFR 99 >=60 mL/min/1. 73m2 LAB CHEMISTRY METHOD 03/07/2025 12:39 PM [facility] Comment:Calculation based on the Chronic Kidney Disease Epidemiology Collaboration (CKD-EPI) equation refit without adjustment for race. BUN/Creatinine Ratio 27.5 LAB CHEMISTRY METHOD 03/07/2025 12:39 PM [facility] Calcium 8.6 8.5 - 10.5 mg/dL LAB CHEMISTRY METHOD 03/07/2025 12:39 PM [facility] AST (SGOT) 32 10 - 42 unit/L LAB CHEMISTRY METHOD 03/07/2025 12:39 PM [facility] ALT (SGPT) 48 10 - 60 unit/L LAB CHEMISTRY METHOD 03/07/2025 12:39 PM [facility] Alkaline Phosphatase 116 42 - 121 unit/L LAB CHEMISTRY METHOD 03/07/2025 12:39 PM [facility] Total Protein 5.3(L) 6.0 - 8.0 g/dL LAB CHEMISTRY METHOD 03/07/2025 12:39 PM [facility] Albumin 2.8(L) 3.2 - 5.0 g/dL LAB CHEMISTRY METHOD 03/07/2025 12:39 PM [facility] Total Bilirubin 1.0 0.0 - 1.4 mg/dL LAB CHEMISTRY METHOD 03/07/2025 12:39 PM [facility] Blood Venous blood specimen / Unknown Venipuncture / Unknown 03/07/2025 5:15 AM EDT 03/07/2025 10:19 AM EDT us Fidencio Burroughs MD LAB BLOOD ORDERABLES Final Res ult [place] ([facility]) [facility] [address] [place] [address], [place] [phone] from Last 3 Months or Most Recently Relevant to Health Maintenance Additional Health Concerns Infection Onset Date Last Indicated ESBL 05/25/2025 05/25/2025 Insurance [employer] Care Teams Assembler Brazer Relationship Specialty Start Date End Date Cj Barber DO [address] [place] [phone] PCP - General 04/21/13
--- OUTSIDE RECORDS SUMMARY | 2025-10-13 16:20 | XMS_ITS | Encounter Summary ---
Author Organization [facility] Address [address] [place] [address] Care Team Providers Care Captain Of Guards Name Role Phone Cj Barber DO Primary Care Provider [phone] Encounter Details Date Type Department Care Team (Late st Contact Info) Description 01/17/2025 Lab Requisition [facility] - Main Lab [address] [facility] [place] [address] Fidencio Burroughs MD [address] [place] [address] Encounter for other general examination Social History [...] mirabilis(A ) BAUDILIO 01/19/2025 11:30 AM EST [facility] Comment: Edited result: [...] MICROBIOLOGY - GENERAL ORD ERABLES Final Result [facility] ([facility] H[facility]PITAL LAB [address] [place] [address], [place] [phone] * (ABNORMAL) Urinalysis with reflex microscopic and culture (01/17/2025 4:00 AM EST) Specific [place] Urine 1.009 1.003 - 1.030 LAB URINALYSIS - AUTOMATED METHOD 01/17/2025 12:04 PM [facility] pH, Urine 7.5 5.0 - 8.0 pH LAB URINALYSIS - AUTOMATED METHOD 01/17/2025 12:04 PM [facility] Leukocytes, Urine Large(A) Negative LAB URINALYSIS - AUTOMATED METHOD 01/17/2025 12:04 PM [facility] Nitrite, Urine Negative Negative LAB URINALYSIS - AUTOMATED METHOD 01/17/2025 12:04 PM [facility] Protein, Urine 30(A) <=Trace mg/dL LAB URINALYSIS - AUTOMATED METHOD 01/17/2025 12:04 PM [facility] Glucose, Urine Negative Negative mg/dL LAB URINALYSIS - AUTOMATED METHOD 01/17/2025 12:04 PM [facility] Ketones, Urine Negative Negative mg/dL LAB URINALYSIS - AUTOMATED METHOD 01/17/2025 12:04 PM [facility] Urobilinogen, Urine 1.0 0.2 - 1.0 mg/dL LAB URINALYSIS - AUTOMATED METHOD 01/17/2025 12:04 PM [facility] Bilirubin, Urine Negative Negative LAB URINALYSIS - AUTOMATED METHOD 01/17/2025 12:04 PM [facility] Blood, Urine Large(A) Negative LAB URINALYSIS - AUTOMATED METHOD 01/17/2025 12:04 PM [facility] RBC, Urine 501.9(H) 0 - 4 /HPF LAB URINALYSIS - AUTOMATED METHOD 01/17/2025 12:04 PM [facility] WBC, Urine 505.7(H) 0 - 4 /HPF LAB URINALYSIS - AUTOMATED METHOD 01/17/2025 12:04 PM [facility] Squamous Epithelial, Urine 4 0 - 60 /LPF LAB URINALYSIS - AUTOMATED METHOD 01/17/2025 12:04 PM [facility] Bacteria, Urine Negative Negative /HPF LAB URINALYSIS - AUTOMATED METHOD 01/17/2025 12:04 PM [facility] Hyaline Casts, Urine 4.8(H) 0 - 3 /LPF LAB URINALYSIS - AUTOMATED METHOD 01/17/2025 12:04 PM [facility] Urine Indwelling urinary catheter / Unknown Non-blood Collection / Unknown 01/17/2025 4:00 AM EST 01/17/2025 10:12 AM EST us Fidencio Burroughs MD LAB URINE ORDERABLES Final Res ult Performing Organization Address [facility]/ZIP Co de Phone Number [facility] [address] [place] [address], [place] [phone] * Mckeon urine culture tube (01/17/2025 4:00 AM EST) Extra Tube Hold for add-ons. 01/17/2025 12:01 PM [facility] Comment:Auto resulted. Urine Indwelling urinary catheter / Unknown Non-blood Collection / Unknown 01/17/2025 4:00 AM EST 01/17/2025 10:12 AM EST us Fidencio Burroughs MD LAB URINE ORDERABLES Final Res ult Performing Organization Address City/[facility]/ZIP Co de Phone Number [facility] [address] [place] [address], [place] [phone] documented in this encounter Visit Diagnoses Diagnosis Encounter for other general examination documented in this encounter Additional Health Concerns Infection Onset Date Last Indicated Resolved Time ESBL 05/25/2025 05/25/2025 documented as of this encounter Care Teams Captain Of Guards Relationship Specialty Start Date End Date Cj Barber DO [address] [place] [phone] PCP - General 04/21/13 documented as of this encounter
--- OUTSIDE RECORDS SUMMARY | 2025-10-13 16:20 | XMS_ITS | Encounter Summary ---
Author Organization [facility] Address [address] [place] [address] Care Team Providers Care Ecosystem Ecology Professor Name Role Phone Cj Barber DO Primary Care Provider [phone] Encounter Details Date Type Department Care Team (Late st Contact Info) Description 03/07/[address] [facility] - Main Lab [address] [facility] [place] [address] Fidencio Burroughs MD [address] [place] [address] Encounter for other general examination Social History [...] K/mcL LAB HEMETOLOGY METHOD 03/07/2025 1:40 PM [facility] RBC 3.70(L) 4.50 - 5.50 M/mcL LAB HEMETOLOGY METHOD 03/07/2025 1:40 PM [facility] Hemoglobin 11.5(L) 13.5 - 17.5 g/dL LAB HEMETOLOGY METHOD 03/07/2025 1:40 PM [facility] Hematocrit 34.9(L) 42.0 - 54.0 % LAB HEMETOLOGY METHOD 03/07/2025 1:40 PM [facility] MCV 93.8 79.0 - 98.0 FL LAB HEMETOLOGY METHOD 03/07/2025 1:40 PM [facility] MCH 30.9 27.0 - 32.0 pcg LAB HEMETOLOGY METHOD 03/07/2025 1:40 PM [facility] MCHC 33.0 32.0 - 37.0 g/dL LAB HEMETOLOGY METHOD 03/07/2025 1:40 PM [facility] RDW 14.7 11.0 - 15.0 % LAB HEMETOLOGY METHOD 03/07/2025 1:40 PM [facility] Platelets 03/07/2025 1:40 PM [facility] Comment:Not measured. Unable to quantitate due to platelet clumping MPV 9.2 7.0 - 11.0 FL LAB HEMETOLOGY METHOD 03/07/2025 1:40 PM [facility] NRBC 0.0 <1.0 % LAB HEMETOLOGY METHOD 03/07/2025 1:40 PM [facility] NRBC Absolute 0.00 <0.10 K/mcL LAB HEMETOLOGY METHOD 03/07/2025 1:40 PM [facility] Blood Venous blood specimen / Unknown Venipuncture / Unknown 03/07/2025 5:15 AM EDT 03/07/2025 10:19 AM EDT Fidencio Burroughs MD LAB BLOOD ORDERABLES Final Res ult [facility] [address] [place] [address], * (ABNORMAL) Comprehensive metabolic panel (03/07/2025 5:15 [...] LAB CHEMISTRY METHOD 03/07/2025 12:39 PM T [facility] Calcium 8.6 8.5 - [...] [facility] [address] [place] [address], documented in this encounter Visit Diagnoses Diagnosis Encounter for other general examination documented in this encounter Additional Health Concerns Infection Onset Date Last Indicated Resolved Time ESBL 05/25/2025 05/25/2025 documented as of this encounter Care Teams Ecosystem Ecology Professor Relationship Specialty Start Date End Date Cj Barber DO [address] [place] [phone] PCP - General 04/21/13 documented as of this encounter
--- OUTSIDE RECORDS SUMMARY | 2025-10-13 16:20 | XMS_ITS | Encounter Summary ---
Author Organization [facility] Address [address] [place] [address] Care Team Providers Care Manager Of Pharmacy Name Role Phone Cj Barber DO Primary Care Provider [phone] Encounter Details Date Type Department Care Team (Late st Contact Info) Description 12/17/2024 Lab Requisition [facility] - Main Lab [address] [facility] [place] [address] Horace Gu MD [address] [place] [phone] Urinary tract infection, site not specified Social [...] mirabilis(A ) BAUDILIO 12/19/2024 7:46 AM EST [facility] Comment: Edited result: Previously reported as [...] MICROBIOLOGY - GENERAL TRISTEN GALAVIZ Final Result [facility] [address] [place] [address], documented in this encounter Visit Diagnoses Diagnosis Urinary tract infection, site not specified documented in this encounter Additional Health Concerns Infection Onset Date Last Indicated Resolved Time ESBL 05/25/2025 05/25/2025 documented as of this encounter Care Teams Manager Of Pharmacy Relationship Specialty Start Date End Date Cj Barber DO [address] [place] [phone] PCP - General 04/21/13 documented as of this encounter
--- OUTSIDE RECORDS SUMMARY | 2025-10-13 16:20 | XMS_ITS | Encounter Summary ---
Author Organization [facility] Address [address] [place] [address] Care Team Providers Care Assistant Professor Surgical Technology Name Role Phone Cj Barber DO Primary Care Provider [phone] Encounter Details Date Type Department Care Team (Late st Contact Info) Description 01/19/2025 Lab Requisition [facility] - Main Lab 299 [facility] [place] [address] Fidencio Burroughs MD [address] [place] [phone] Encounter for other general examination Social History [...] AM EST) WBC 6.3 4.8 - 10.8 /[facility] LAB HEMETOLOGY METHOD 01/19/2025 12:47 PM [facility] RBC 4.50 4.50 - 5.50 M/mcL LAB HEMETOLOGY METHOD 01/19/2025 12:47 PM [facility] Hemoglobin 13.9 13.5 - 17.5 g/dL LAB HEMETOLOGY METHOD 01/19/2025 12:47 PM [facility] Hematocrit 42.6 42.0 - 54.0 % LAB HEMETOLOGY METHOD 01/19/2025 12:47 PM [facility] MCV 94.0 79.0 - 98.0 FL LAB HEMETOLOGY METHOD 01/19/2025 12:47 PM [facility] MCH 30.7 27.0 - 32.0 pcg LAB HEMETOLOGY METHOD 01/19/2025 12:47 PM [facility] MCHC 32.6 32.0 - 37.0 g/dL LAB HEMETOLOGY METHOD 01/19/2025 12:47 PM [facility] RDW 13.0 11.0 - 15.0 % LAB HEMETOLOGY METHOD 01/19/2025 12:47 PM [facility] Platelets 01/19/2025 12:47 PM [facility] Comment:Not measured. Unable to quantitate due to platelet clumping MPV 11.3(H) 7.0 - 11.0 FL LAB HEMETOLOGY METHOD 01/19/2025 12:47 PM [facility] NRBC 0.0 <1.0 % LAB HEMETOLOGY METHOD 01/19/2025 12:47 PM [facility] NRBC Absolute 0.00 <0.10 K/mcL LAB HEMETOLOGY METHOD 01/19/2025 12:47 PM [facility] Blood Venous blood specimen / Unknown Venipuncture / Unknown 01/19/2025 5:25 AM EST 01/19/2025 10:00 AM EST us Fidencio Burroughs MD LAB BLOOD ORDERABLES Final Res ult [facility] [address] [place] [address], [place] [phone] * (ABNORMAL) Comprehensive metabolic panel (01/19/2025 5:25 AM EST) Sodium 137 133 - 145 mmol/L LAB CHEMISTRY METHOD 01/19/2025 11:35 AM EST [facility] Potassium 4.2 3.5 - 5.5 mmol/L LAB CHEMISTRY METHOD 01/19/2025 11:35 AM [facility] Chloride 103 96 - 110 mmol/L LAB CHEMISTRY METHOD 01/19/2025 11:35 AM [facility] CO2 24 21 - 32 mmol/L LAB CHEMISTRY METHOD 01/19/2025 11:35 AM [facility] Anion Gap 10 3 - 11 LAB CHEMISTRY METHOD 01/19/2025 11:35 AM [facility] Glucose 84 70 - 100 mg/dL LAB CHEMISTRY METHOD 01/19/2025 11:35 AM [facility] BUN 9 5 - 25 mg/dL LAB CHEMISTRY METHOD 01/19/2025 11:35 AM [facility] Creatinine 0.45(L) 0.70 - 1.30 mg/dL LAB CHEMISTRY METHOD 01/19/2025 11:35 AM [facility] eGFR 103 >=60 mL/min/1. 73m2 LAB CHEMISTRY METHOD 01/19/2025 11:35 AM [facility] Comment:Calculation based on the Chronic Kidney Disease Epidemiology Collaboration (CKD-EPI) equation refit without adjustment for race. BUN/Creatinine Ratio 20.0 LAB CHEMISTRY METHOD 01/19/2025 11:35 AM [facility] Calcium 8.9 8.5 - 10.5 mg/dL LAB CHEMISTRY METHOD 01/19/2025 11:35 AM [facility] AST (SGOT) 36 10 - 42 unit/L LAB CHEMISTRY METHOD 01/19/2025 11:35 AM [facility] ALT (SGPT) 44 10 - 60 unit/L LAB CHEMISTRY METHOD 01/19/2025 11:35 AM [facility] Alkaline Phosphatase 114 42 - 121 unit/L LAB CHEMISTRY METHOD 01/19/2025 11:35 AM [facility] Total Protein 6.2 6.0 - 8.0 g/dL LAB CHEMISTRY METHOD 01/19/2025 11:35 AM [facility] Albumin 3.1(L) 3.2 - 5.0 g/dL LAB CHEMISTRY METHOD 01/19/2025 11:35 AM [facility] Total Bilirubin 0.7 0.0 - 1.4 mg/dL LAB CHEMISTRY METHOD 01/19/2025 11:35 AM [facility] Blood Venous blood specimen / Unknown Venipuncture / Unknown 01/19/2025 5:25 AM EST 01/19/2025 10:00 AM EST us Fidencio Burroughs MD LAB BLOOD ORDERABLES Final Res ult [facility] [address] [place] [address], documented in this encounter Visit Diagnoses Diagnosis Encounter for other general examination documented in this encounter Additional Health Concerns Infection Onset Date Last Indicated Resolved Time ESBL 05/25/2025 05/25/2025 documented as of this encounter Care Teams Assistant Professor Surgical Technology Relationship Specialty Start Date End Date Cj Barber DO [address] [place] [phone] PCP - General 04/21/13 documented as of this encounter
--- OUTSIDE RECORDS SUMMARY | 2025-10-13 16:20 | XMS_ITS | Patient Health Record ---
Author Organization [facility] [place] Address [address] [place] [address] Care Team Providers Care Supervisor Cereal Name Role Phone Aly Crespo Primary Care Provider Slade Manzano Unavailable [phone] Egdardo Pascual Unavailable [phone] Allergies No Known Allergies Reason For Referral No Information Medications Medication SIG (Take, Route, Frequency, Duration) Notes Start Date End Date Status Lipitor 80 MG 1 tablet Orally Once a day Not-Taking Isosorbide Dinitrate 30 MG 1 tablet Orally Twice a day Active Atorvastatin Calcium 80 MG 1 tablet Orally Once a day Active Tamsulosin HCl 0.4 MG 1 capsule Orally O nce a day Not-Taking Finasteride 5 MG 1 tablet Orally Once a day Not-Taking Metoprolol Tartrate 25 MG 1 tablet Orall y Twice a day Active Aspirin 81 MG 1 tablet Orally Once a day Active Ciclopirox Olamine 0.77 % 1 application Externally Twice a day to skin of feet including between the toes; Duration: 30 days Active Warfarin Sodium 6 MG 1 tablet Orally Onc e a day; Duration: 30 days Active Lisinopril 5 MG 1 tablet Orally Once a day Active Immunizations Vaccine Route Administration Date Status Comme nts Influenza Unknown 10/24/2024 Administered Social History Tobacco Use: Social History Observation Description Date Details (start date - stop date) Never Smoker NA - NA Tobacco use other than smoking: Question Answer Notes Are you an other tobacco user? No Tobacco Control (Standard) Question Answer Notes Tobacco use: Nonsmoker Additional Findings: Tobacco non-user Current no nsmoker AUDIT-C (Standard) Question Answer Notes Did you have a drink containing alcohol in the p ast year? No Points 0 Interpretation Negative Problems Problem Type SNOMED Code ICD Code Onset Dates Problem Status W/U Status Risk Notes Problem Bilateral atherosclerosis of arteries of lower limbs (disorder) ([id number] ) Atherosclerosis of [place] artery of both lower extremities, with unspecified presence of clinical manifestation (I70.203) Active confirmed Q7(A), Q8(2B), Q9(1B,2 C) Vital Signs Blood pressure diastolic 80 mm Hg 07/26/2025 Height 5 ft 10 in in 07/26/2025 Blood pressure systolic 122 mm Hg 07/26/2025 Weight 160 lbs 07/26/2025 BMI 22.96 kg/m2 07/26/2025 Procedures Procedure Date Ordered Date Performed Result Body Sit e 95788-LNROOJL NAIL, 6 OR MORE 12/28/2024 N/A 90138-FMNR SKIN LESIONS, OVER 4 12/28/2024 N/A 47133-SQENXHE NAIL, 6 OR MORE 04/05/2025 N/A 34940-JEPZ SKIN LESIONS, OVER 4 04/05/2025 N/A 60139-GFISQCX NAIL, 6 OR MORE 07/26/2025 N/A 95771-KMPX SKIN LESIONS, OVER 4 07/26/2025 N/A Encounters Encounter Location Date Provider Diagnosis [address] [address] 12/28/2024 Slade Manzano Atherosclerosis of [place] artery of both lower extremities, with unspecified presence of clinical manifestation I70.203 ; Tinea unguium B35.1 ; Pain in right toe(s) M79.674 ; Pain in left toe(s) M79.675 and Tinea pedis of both feet B35.[address] [address] 04/05/2025 Slade Natacha Atherosclerosis of [place] artery of both lower extremities, with unspecified presence of clinical manifestation I70.203 ; Tinea unguium B35.1 ; Pain in right toe(s) M79.674 ; Pain in left toe(s) M79.675 and [facility]inea pedis of both feet B35.[facility] [address] 07/26/2025 Slade Manzano Atherosclerosis of [place] artery of both lower extremities, with unspecified presence of clinical manifestation I70.203 ; Tinea unguium B35.1 ; Pain in right toe(s) M79.674 and Pain in left toe(s) M79.675 Assessments Encounter Date Diagnosis (ICD Code) Assessment Notes Treatment Notes Treatment Clinical Notes Section Notes 12/28/2024 Atherosclerosis of [place] artery of both lower extremities, with unspecified presence of clinical manifestation (ICD-10 - I70.203) Q7(A), Q8(2B), Q9(1B,2C) 04/05/2025 Tinea unguium (ICD-10 - B35.1) 04/05/2025 Atherosclerosis of [place] artery of both lower extremities, with unspecified presence of clinical manifestation (ICD-10 - I70.203) Q7(A), Q8(2B), Q9(1B,2C) 07/26/2025 Tinea unguium (ICD-10 - B35.1) 07/26/2025 Atherosclerosis of [place] artery of both lower extremities, with unspecified presence of clinical manifestation (ICD-10 - I70.203) Q7(A), Q8(2B), Q9(1B,2C) 07/26/2025 Pain in right toe(s) (ICD-10 - M79.674) 04/05/2025 Pain in right toe(s) (ICD-10 - M79.674) 12/28/2024 Tinea unguium (ICD-10 - B35.1) 12/28/2024 Pain in right toe(s) (ICD-10 - M79.674) 04/05/2025 Pain in left toe(s) (ICD-10 - M79.675) 07/26/2025 Pain in left toe(s) (ICD-10 - M79.675) 04/05/2025 Tinea pedis of both feet (ICD-10 - B35.3) 12/28/2024 Pain in left toe(s) (ICD-10 - M79.675) 12/28/2024 Tinea pedis of both feet (ICD-10 - B35.3) Plan Of Treatment Pending Test Test Name Order Date 71797-[id number] NAIL, 6 OR MORE 06/22/2014 12895-KVHBIQA NAIL, 6 OR MORE 09/19/2014 62123-BGGKXUQ NAIL, 6 OR MORE 12/28/2024 42337-VECQKYS NAIL, 6 OR MORE 04/05/2025 69918-ZNPPDLU NAIL, 6 OR MORE 07/26/2025 76346-ZLLN SKIN LESIONS, OVER 4 07/26/20 64229-MZEG SKIN LESIONS, OVER 4 04/05/20 48048-KQWT SKIN LESIONS, OVER 4 12/28/19 Next Appt Details Provider Name:Slade Manzano , 11/04/2025 12:15:00 PM, [address] [facility], [place], [address], Insurance Providers Payer Name Payer Address Payer Phone Subscriber Number Group Number Insured Name Patient Relationship to Insured Coverage Start Date Coverage End Date [facility] [address] [place] [address] [id number] Gordo Bullock Self - patient is the insured 5 Medical (General) History Medical History History ICD Code Broken bones Heart disease High blood pressure Mumps Measles CAD (Cholesterol) covid-19 Neuropathy Chicken pox Degenerative Disc disease Surgical History Surgery Date(Month/Year) heart stents Prostate 06/17 Hospitalization History Reason Date(Month/Year) ER- fell 07/18 [facility] - UTI and heart attack. Blood cl ots 01/2025
--- OUTSIDE RECORDS SUMMARY | 2025-10-13 16:20 | XMS_ITS | Encounter Summary ---
Author Organization [facility] Address [address] [place] [address] Care Team Providers Care Lead Setter Name Role Phone Cj Barber DO Primary Care Provider [phone] Encounter Details Date Type Department Care Team (Late st Contact Info) Description 05/25/2025 Lab Requisition [facility] - Main Lab [address] [facility] [place] [address] Hilton Saavedra, [address] [place] [address] Urinary tract infection, site not specified; Benign [...] mirabilis ESBL(A) BAUDILIO 05/29/2025 8:45 AM EDT [facility] Comment: THIS ORGANISM IS POSITIVE [...] Pseudomonas aeruginosa(A) BAUDILIO 05/29/2025 8:45 AM EDT [facility] Comment: The organism value for this result has been updated. These results have been appended to the previously preliminary verified report. This is an edited result. Previous organism was Gram negative bacilli on 05/27/2025 at 1022 EDT. Urine Urine specimen obtained by clean catch procedure / Unknown 05/25/2025 05/25/2025 5:52 PM EDT Narrative [facility] - 05/29/2025 8:45 AM EDT [...] Susceptible Pseudomonas aeruginosa Cefepime DISK DIFFUSION Susceptible [facility] MICROBIOLOGY - GENERAL TRISTEN GALAVIZ Final Result [facility] [address] [place] [address], documented in this encounter Visit Diagnoses Diagnosis Urinary tract infection, site not specified Benign prostatic hyperplasia with lower urinary tract symptoms documented in this encounter Additional Health Concerns Infection Onset Date Last Indicated Resolved Time ESBL 05/25/2025 05/25/2025 documented as of this encounter Care Teams Lead Setter Relationship Specialty Start Date End Date Cj Barber DO [address] [place] [phone] PCP - General 04/21/13 documented as of this encounter
--- OUTSIDE RECORDS SUMMARY | 2025-10-13 16:20 | XMS_ITS | Encounter Summary ---
Author Organization [facility] Address [address] [place] [address] Care Team Providers Care Nurse Ortho Name Role Phone Cj Barber DO Primary Care Provider [phone] Encounter Details Date Type Department Care Team (Late st Contact Info) Description 01/15/2025 Lab Requisition [facility] - Main Lab [address] [facility] [place] [address] Fidencio Burroughs MD [address] [place] [address] Encounter for other general examination Social History [...] K/mcL LAB HEMETOLOGY METHOD 01/15/2025 11:56 AM [facility] RBC 4.50 4.50 - 5.50 M/mcL LAB HEMETOLOGY METHOD 01/15/2025 11:56 AM [facility] Hemoglobin 13.9 13.5 - 17.5 g/dL LAB HEMETOLOGY METHOD 01/15/2025 11:56 AM [facility] Hematocrit 42.3 42.0 - 54.0 % LAB HEMETOLOGY METHOD 01/15/2025 11:56 AM [facility] MCV 95.1 79.0 - 98.0 FL LAB HEMETOLOGY METHOD 01/15/2025 11:56 AM [facility] MCH 31.2 27.0 - 32.0 pcg LAB HEMETOLOGY METHOD 01/15/2025 11:56 AM [facility] MCHC 32.9 32.0 - 37.0 g/dL LAB HEMETOLOGY METHOD 01/15/2025 11:56 AM [facility] RDW 13.2 11.0 - 15.0 % LAB HEMETOLOGY METHOD 01/15/2025 11:56 AM [facility] Platelets 01/15/2025 11:56 AM [facility] Comment:Not measured. Platel ets appear adequate but clumped MPV 11.4(H) 7.0 - 11.0 FL LAB HEMETOLOGY METHOD 01/15/2025 11:56 AM [facility] NRBC 0.0 <1.0 % LAB HEMETOLOGY METHOD 01/15/2025 11:56 AM [facility] NRBC Absolute 0.00 <0.10 K/mcL LAB HEMETOLOGY METHOD 01/15/2025 11:56 AM [facility] Neutrophils Relative 76.9 % LAB HEMETOLOGY METHOD 01/15/2025 11:56 AM [facility] Lymphocytes Relative 11.4 % LAB HEMETOLOGY METHOD 01/15/2025 11:56 AM [facility] Monocytes Relative 10.7 % LAB HEMETOLOGY METHOD 01/15/2025 11:56 AM [facility] Eosinophils Relative 0.6 % LAB HEMETOLOGY METHOD 01/15/2025 11:56 AM [facility] Basophils Relative 0.2 % LAB HEMETOLOGY METHOD 01/15/2025 11:56 AM [facility] Immature Granulocytes Relative 0.2 % LAB HEMETOLOGY METHOD 01/15/2025 11:56 AM [facility] Neutrophils Absolute 6.15 1.50 - 7.00 K/mcL LAB HEMETOLOGY METHOD 01/15/2025 11:56 AM [facility] Lymphocytes Absolute 0.91(L) 1.00 - 5.00 K/mcL LAB HEMETOLOGY METHOD 01/15/2025 11:56 AM [facility] Monocytes Absolute 0.86 0.20 - 1.00 K/mcL LAB HEMETOLOGY METHOD 01/15/2025 11:56 AM [facility] Eosinophils Absolute 0.05 0.00 - 0.50 K/mcL LAB HEMETOLOGY METHOD 01/15/2025 11:56 AM [facility] Basophils Absolute 0.02 0.00 - 0.20 K/mcL LAB HEMETOLOGY METHOD 01/15/2025 11:56 AM [facility] Immature Granulocytes Absolute 0.02 0.00 - 0.03 K/mcL LAB HEMETOLOGY METHOD 01/15/2025 11:56 AM [facility] Blood Venous blood specimen / Unknown Venipuncture / Unknown 01/15/2025 6:39 AM EST 01/15/2025 10:03 AM EST Fidencio Burroughs MD LAB BLOOD ORDERABLES Final Res ult [facility] [address] [place] [address], [place] [phone] * Magnesium (01/15/2025 6:39 AM EST) Magnesium 2.0 1.9 - 2.6 mg/dL LAB CHEMISTRY METHOD 01/15/2025 11:40 AM EST [facility] Blood Venous blood specimen / Unknown Venipuncture / Unknown 01/15/2025 6:39 AM EST 01/15/2025 10:03 AM EST Fidencio Burroughs MD LAB BLOOD ORDERABLES Final Res ult [facility] [address] [place] [address], [place] [phone] * (ABNORMAL) Comprehensive metabolic panel (01/15/2025 6:39 AM EST) Sodium 136 133 - 145 mmol/L LAB CHEMISTRY METHOD 01/15/2025 11:40 AM [facility] Potassium 3.9 3.5 - 5.5 mmol/L LAB CHEMISTRY METHOD 01/15/2025 11:40 AM [facility] Chloride 103 96 - [...] mg/dL LAB CHEMISTRY METHOD 01/15/2025 11:40 AM [facility] BUN 15 5 - 25 mg/dL LAB CHEMISTRY METHOD 01/15/2025 11:40 AM [facility] Creatinine 0.48(L) 0.70 - 1.30 mg/dL LAB CHEMISTRY METHOD 01/15/2025 11:40 AM [facility] eGFR 101 >=60 mL/min/1. 73m2 LAB CHEMISTRY METHOD 01/15/2025 11:40 AM [facility] Comment:Calculation based on the Chronic Kidney Disease Epidemiology Collaboration (CKD-EPI) equation refit without adjustment for race. BUN/Creatinine Ratio 31.3 LAB CHEMISTRY METHOD 01/15/2025 11:40 AM [facility] Calcium 8.8 8.5 - 10.5 mg/dL LAB CHEMISTRY METHOD 01/15/2025 11:40 AM [facility] AST (SGOT) 28 10 - 42 unit/L LAB CHEMISTRY METHOD 01/15/2025 11:40 AM [facility] ALT (SGPT) 31 10 - 60 unit/L LAB CHEMISTRY METHOD 01/15/2025 11:40 AM [facility] Alkaline Phosphatase 104 42 - 121 unit/L LAB CHEMISTRY METHOD 01/15/2025 11:40 AM [facility] Total Protein 5.9(L) 6.0 - 8.0 g/dL LAB CHEMISTRY METHOD 01/15/2025 11:40 AM [facility] Albumin 2.9(L) 3.2 - 5.0 g/dL LAB CHEMISTRY METHOD 01/15/2025 11:40 AM [facility] Total Bilirubin 1.0 0.0 - 1.4 mg/dL LAB CHEMISTRY METHOD 01/15/2025 11:40 AM [facility] Blood Venous blood specimen / Unknown Venipuncture / Unknown 01/15/2025 6:39 AM EST 01/15/2025 10:03 AM EST us Fidencio Burroughs MD LAB BLOOD ORDERABLES Final Res ult [facility] [address] [place] [address], documented in this encounter Visit Diagnoses Diagnosis Encounter for other general examination documented in this encounter Additional Health Concerns Infection Onset Date Last Indicated Resolved Time ESBL 05/25/2025 05/25/2025 documented as of this encounter Care Teams Nurse Ortho Relationship Specialty Start Date End Date Cj Barber DO [address] [place] [phone] PCP - General 04/21/13 documented as of this encounter
== END 2025-10-13 11:20 | disposition home or self-care (01) ==
LOC: HO.ACS 10:50
PROVIDERS: PCP Physician Assistant Medical; Visit Provider Internal Medicine Medical Oncology
DX: Z79.01 Long term (current) use of anticoagulants (principal)

== ENCOUNTER → 2025-10-13 10:50 | Outpatient (BNVA) | payer MEDICARE, SELFPAY | PROVIDERS: PCP Physician Assistant Medical; Visit Provider Internal Medicine Medical Oncology | DX: Z79.01 Long term (current) use of anticoagulants (principal) | CPT/HCPCS: 85610; 99211 ==

== ENCOUNTER 2025-11-11 11:01 | Outpatient (AMB) | payer MEDICARE, SELFPAY ==
[2025-11-11 11:08] LABS: Prothrombin Time Whole Bld POC 28.3 sec (11.1-13.5); ~PT, ~INR - Anti Coag Clinic 2.4 (0.9-1.1)
--- NOTE | 2025-11-11 11:11 | MHC.OFFVISCO ---
Intake Intake Visit Reasons: Anticoagulation Allergies No Known Allergies (No Known Allergies*) Allergy (Verified 11/11/25 11:03) Medication List - Last Reconciled 11/11/25 by Fabienne Armstrong RN aspirin 81 mg PO DAILY atorvastatin 80 mg PO BEDTIME clotrimazole 1% 1 appl topical BID hydrocortisone 2.5% 1 appl topical BID PRN 1 week isosorbide mononitrate ER 30 mg PO DAILY metoprolol succinate ER 25 mg PO DAILY mupirocin 2% 1 appl topical BID nitroglycerin 0.4 mg sublingual Q5M PRN timolol maleate 0.5% 1 drp ophthalmic (eye) DAILY warfarin 6 mg See Protocol PO DAILY 90 days warfarin 9 mg See Protocol PO DAILY 90 days Nursing Note INR: 2.4 in therapeutic range of 2-3 Medications and supplements reviewed No changes in health, diet, medications, or supplements, Denies any signs and symptoms of bleeding or bruising or clotting. Bleeding, bruising, clotting discussed Nutritional guidance given Dose: 6mg X 6 days and 9mg X 1 day (Sun) F/U INR: 4 weeks Patient verbalizes understanding of instructions given Anti-Coag Initial Assessment Social Hx Patient Tobacco Use Status: Former Tobacco user alcohol intake: current Alcohol intake frequency: does not drink Cardiovascular Hx: HTN, NV and Arrhythmias Lung Disease HX: DVT/PE Musculoskeletal Hx: Arthritis Blood Disorder Hx: Hyperlipidemia Hx: Prostate Cancer HX: No Psych. Illness/Depression: No Coding Level of Care Code Est Patient Level 1 Diagnoses Current use of anticoagulant therapy Z79.01 Assessment & Plan Assessment & Plan (1) Current use of anticoagulant therapy: Code(s): Z79.01 - skilled nursing (current) use of anticoagulants Category: Medical
--- OUTSIDE RECORDS SUMMARY | 2025-11-11 12:54 | XMS_ITS | Encounter Summary ---
Author Organization [facility] Address [address] [place] [address] Care Team Providers Care Core Inspector Name Role Phone Cj Barber DO Primary Care Provider [phone] Encounter Details Date Type Department Care Team (Late st Contact Info) Description 12/17/2024 Lab Requisition [facility] - Main Lab [address] [facility] [place] [address] Horace Gu MD [address] [place] [phone] Urinary tract infection, site not specified Social [...] mirabilis(A ) BAUDILIO 12/19/2024 7:46 AM EST [facility] Comment: Edited result: Previously reported [...] MICROBIOLOGY - GENERAL TRISTEN GALAVIZ Final Result [facility] [address] [place] [address], documented in this encounter Visit Diagnoses Diagnosis Urinary tract infection, site not specified documented in this encounter Additional Health Concerns Infection Onset Date Last Indicated Resolved Time ESBL 05/25/2025 05/25/2025 documented as of this encounter Care Teams Core Inspector Relationship Specialty Start Date End Date Cj Barber DO [address] [place] [phone] PCP - General 04/21/13 documented as of this encounter
--- OUTSIDE RECORDS SUMMARY | 2025-11-11 12:54 | XMS_ITS | Encounter Summary ---
Author Organization [facility] Address [address] [place] [address] Care Team Providers Care Detective And Intelligence Analyst Name Role Phone Cj Barber DO Primary Care Provider [phone] Encounter Details Date Type Department Care Team (Late st Contact Info) Description 01/19/2025 Lab Requisition [facility] - Main Lab 299 [facility] [place] [address] Fidencio Burroughs MD [address] [place] [phone] Encounter for other general examination Social History [...] Healthcare LAB HEMETOLOGY METHOD 01/19/2025 12:47 PM [facility] RBC 4.50 4.50 - 5.50 M/mcL LAB HEMETOLOGY METHOD 01/19/2025 12:47 PM [facility] Hemoglobin 13.9 13.5 - 17.5 g/dL LAB HEMETOLOGY METHOD 01/19/2025 12:47 PM [facility] Hematocrit 42.6 42.0 - 54.0 % LAB HEMETOLOGY METHOD 01/19/2025 12:47 PM [facility] MCV 94.0 79.0 - 98.0 FL LAB HEMETOLOGY METHOD 01/19/2025 12:47 PM [facility] MCH 30.7 27.0 - 32.0 pcg LAB HEMETOLOGY METHOD 01/19/2025 12:47 PM [facility] MCHC 32.6 32.0 - 37.0 g/dL LAB HEMETOLOGY METHOD 01/19/2025 12:47 PM [facility] RDW 13.0 11.0 - 15.0 % LAB HEMETOLOGY METHOD 01/19/2025 12:47 PM [facility] Platelets 01/19/2025 12:47 PM [facility] Comment:Not measured. Unable to quantitate due to platelet clumping MPV 11.3(H) 7.0 - 11.0 FL LAB HEMETOLOGY METHOD 01/19/2025 12:47 PM [facility] NRBC 0.0 <1.0 % LAB HEMETOLOGY METHOD 01/19/2025 12:47 PM [facility] NRBC Absolute 0.00 <0.10 K/mcL LAB HEMETOLOGY METHOD 01/19/2025 12:47 PM [facility] Blood Venous blood specimen / Unknown Venipuncture / Unknown 01/19/2025 5:25 AM EST 01/19/2025 10:00 AM EST us Fidencio Burroughs MD LAB BLOOD ORDERABLES Final Res ult [facility] [address] [place] [address], [place] [phone] * (ABNORMAL) Comprehensive metabolic panel (01/19/2025 5:25 AM EST) Sodium 137 133 - 145 mmol/L LAB CHEMISTRY METHOD 01/19/2025 11:35 AM EST [facility] Potassium 4.2 3.5 - 5.5 mmol/L LAB CHEMISTRY METHOD 01/19/2025 11:35 AM [facility] Chloride 103 96 - 110 mmol/L LAB CHEMISTRY METHOD 01/19/2025 11:35 AM [facility] CO2 24 21 - 32 mmol/L LAB CHEMISTRY METHOD 01/19/2025 11:35 AM [facility] Anion Gap 10 3 - 11 LAB CHEMISTRY METHOD 01/19/2025 11:35 AM [facility] Glucose 84 70 - 100 mg/dL LAB CHEMISTRY METHOD 01/19/2025 11:35 AM [facility] BUN 9 5 - 25 mg/dL LAB CHEMISTRY METHOD 01/19/2025 11:35 AM [facility] Creatinine 0.45(L) 0.70 - 1.30 mg/dL LAB CHEMISTRY METHOD 01/19/2025 11:35 AM [facility] eGFR 103 >=60 mL/min/1. 73m2 LAB CHEMISTRY METHOD 01/19/2025 11:35 AM [facility] Comment:Calculation based on the Chronic Kidney Disease Epidemiology Collaboration (CKD-EPI) equation refit without adjustment for race. BUN/Creatinine Ratio 20.0 LAB CHEMISTRY METHOD 01/19/2025 11:35 AM [facility] Calcium 8.9 8.5 - 10.5 mg/dL LAB CHEMISTRY METHOD 01/19/2025 11:35 AM [facility] AST (SGOT) 36 10 - 42 unit/L LAB CHEMISTRY METHOD 01/19/2025 11:35 AM [facility] ALT (SGPT) 44 10 - 60 unit/L LAB CHEMISTRY METHOD 01/19/2025 11:35 AM [facility] Alkaline Phosphatase 114 42 - 121 unit/L LAB CHEMISTRY METHOD 01/19/2025 11:35 AM [facility] Total Protein 6.2 6.0 - 8.0 g/dL LAB CHEMISTRY METHOD 01/19/2025 11:35 AM [facility] Albumin 3.1(L) 3.2 - 5.0 g/dL LAB CHEMISTRY METHOD 01/19/2025 11:35 AM [facility] Total Bilirubin 0.7 0.0 - 1.4 mg/dL LAB CHEMISTRY METHOD 01/19/2025 11:35 AM [facility] Blood Venous blood specimen / Unknown Venipuncture / Unknown 01/19/2025 5:25 AM EST 01/19/2025 10:00 AM EST us Fidencio Burroughs MD LAB BLOOD ORDERABLES Final Res ult [facility] [address] [place] [address], documented in this encounter Visit Diagnoses Diagnosis Encounter for other general examination documented in this encounter Additional Health Concerns Infection Onset Date Last Indicated Resolved Time ESBL 05/25/2025 05/25/2025 documented as of this encounter Care Teams Detective And Intelligence Analyst Relationship Specialty Start Date End Date Cj Barber DO [address] [place] [phone] PCP - General 04/21/13 documented as of this encounter
--- OUTSIDE RECORDS SUMMARY | 2025-11-11 12:54 | XMS_ITS | Encounter Summary ---
Author Organization [facility] Address [address] [place] [address] Care Team Providers Care Jewel Sawyer Name Role Phone Cj Barber DO Primary Care Provider [phone] Encounter Details Date Type Department Care Team (Late st Contact Info) Description 02/24/2025 Lab Requisition [facility] - Main Lab 299 [facility] [place] [address] Fidencio Burroughs MD [address] [place] [address] Encounter for other general examination Social History [...] K/mcL LAB HEMETOLOGY METHOD 02/24/2025 10:22 AM [facility] RBC 4.20(L) 4.50 - 5.50 M/mcL LAB HEMETOLOGY METHOD 02/24/2025 10:22 AM [facility] Hemoglobin 12.6(L) 13.5 - 17.5 g/dL LAB HEMETOLOGY METHOD 02/24/2025 10:22 AM [facility] Hematocrit 37.1(L) 42.0 - 54.0 % LAB HEMETOLOGY METHOD 02/24/2025 10:22 AM [facility] MCV 89.4 79.0 - 98.0 FL LAB HEMETOLOGY METHOD 02/24/2025 10:22 AM [facility] MCH 30.4 27.0 - 32.0 pcg LAB HEMETOLOGY METHOD 02/24/2025 10:22 AM [facility] MCHC 34.0 32.0 - 37.0 g/dL LAB HEMETOLOGY METHOD 02/24/2025 10:22 AM [facility] RDW 13.3 11.0 - 15.0 % LAB HEMETOLOGY METHOD 02/24/2025 10:22 AM [facility] Platelets 02/24/2025 10:22 AM [facility] Comment:Not measured. Platel ets appear adequate but clumped MPV 10.3 7.0 - 11.0 FL LAB HEMETOLOGY METHOD 02/24/2025 10:22 AM [facility] NRBC 0.0 <1.0 % LAB HEMETOLOGY METHOD 02/24/2025 10:22 AM [facility] NRBC Absolute 0.00 <0.10 K/mcL LAB HEMETOLOGY METHOD 02/24/2025 10:22 AM [facility] Blood Venous blood specimen / Unknown Venipuncture / Unknown 02/24/2025 5:01 AM EDT 02/24/2025 8:10 AM EDT Fidencio Burroughs MD LAB BLOOD ORDERABLES Final Res ult [facility] [address] [place] [address], [place] [phone] * (ABNORMAL) Comprehensive metabolic panel (02/24/2025 5:01 AM EDT) Sodium 135 133 - 145 mmol/L LAB CHEMISTRY METHOD 02/24/2025 10:11 AM [facility] Potassium 3.9 3.5 - 5.5 mmol/L LAB CHEMISTRY METHOD 02/24/2025 10:11 AM [facility] Chloride 98 96 - 110 mmol/L LAB CHEMISTRY METHOD 02/24/2025 10:11 AM [facility] CO2 29 21 - 32 mmol/L LAB CHEMISTRY METHOD 02/24/2025 10:11 AM [facility] Anion Gap 8 3 - 11 LAB CHEMISTRY METHOD 02/24/2025 10:11 AM [facility] Glucose 73 70 - 100 mg/dL LAB CHEMISTRY METHOD 02/24/2025 10:11 AM [facility] BUN 18 5 - 25 mg/dL LAB CHEMISTRY METHOD 02/24/2025 10:11 AM [facility] Creatinine 0.56(L) 0.70 - 1.30 mg/dL LAB CHEMISTRY METHOD 02/24/2025 10:11 AM [facility] eGFR 97 >=60 mL/min/1. 73m2 LAB CHEMISTRY METHOD 02/24/2025 10:11 AM [facility] Comment:Calculation based on the Chronic Kidney Disease Epidemiology Collaboration (CKD-EPI) equation refit without adjustment for race. BUN/Creatinine Ratio 32.1 LAB CHEMISTRY METHOD 02/24/2025 10:11 AM [facility] Calcium 8.8 8.5 - 10.5 mg/dL LAB CHEMISTRY METHOD 02/24/2025 10:11 AM [facility] AST (SGOT) 33 10 - 42 unit/L LAB CHEMISTRY METHOD 02/24/2025 10:11 AM [facility] ALT (SGPT) 55 10 - 60 unit/L LAB CHEMISTRY METHOD 02/24/2025 10:11 AM [facility] Alkaline Phosphatase 100 42 - 121 unit/L LAB CHEMISTRY METHOD 02/24/2025 10:11 AM [facility] Total Protein 5.4(L) 6.0 - 8.0 g/dL LAB CHEMISTRY METHOD 02/24/2025 10:11 AM [facility] Albumin 2.9(L) 3.2 - 5.0 g/dL LAB CHEMISTRY METHOD 02/24/2025 10:11 AM [facility] Total Bilirubin 0.7 0.0 - 1.4 mg/dL LAB CHEMISTRY METHOD 02/24/2025 10:11 AM [facility] Blood Venous blood specimen / Unknown Venipuncture / Unknown 02/24/2025 5:01 AM EDT 02/24/2025 8:10 AM EDT us Fidencio Burroughs MD LAB BLOOD ORDERABLES Final Res ult [facility] [address] [place] [address], documented in this encounter Visit Diagnoses Diagnosis Encounter for other general examination documented in this encounter Additional Health Concerns Infection Onset Date Last Indicated Resolved Time ESBL 05/25/2025 05/25/2025 documented as of this encounter Care Teams Jewel Sawyer Relationship Specialty Start Date End Date Cj Barber DO [address] [place] [phone] PCP - General 04/21/13 documented as of this encounter
--- OUTSIDE RECORDS SUMMARY | 2025-11-11 12:54 | XMS_ITS | Encounter Summary ---
Author Organization [facility] Address [address] [place] [address] Care Team Providers Care Otolaryngology Surgeon Name Role Phone Cj Barber DO Primary Care Provider [phone] Encounter Details Date Type Department Care Team (Late st Contact Info) Description 03/07/2025 Lab Requisition [facility] - Main Lab 299 [facility] [place] [address] Fidencio Burroughs MD [address] [place] [address] Encounter for other general examination Social History [...] Final Res ult [facility] [address] [place] [address], * (ABNORMAL) Comprehensive metabolic panel (03/07/2025 5:15 [...] [facility] Comment:Calculation based on the Chronic Kidney Disease Epidemiology Collaboration (CKD-EPI) equation refit without adjustment for race. BUN/Creatinine Ratio 27.5 LAB CHEMISTRY METHOD 03/07/2025 12:39 PM T [facility] Calcium 8.6 8.5 - 10.5 [...] Final Res ult [facility] [address] [place] [address], documented in this encounter Visit Diagnoses Diagnosis Encounter for other general examination documented in this encounter Additional Health Concerns Infection Onset Date Last Indicated Resolved Time ESBL 05/25/2025 05/25/2025 documented as of this encounter Care Teams Otolaryngology Surgeon Relationship Specialty Start Date End Date Cj Barber DO [address] [place] [phone] PCP - General 04/21/13 documented as of this encounter
--- OUTSIDE RECORDS SUMMARY | 2025-11-11 12:54 | XMS_ITS | Clinical Summary ---
Author Organization [facility] Address [address] [place] [address] Phone Care Team Providers Care Machine Stone Polisher Name Role Phone Cj Barber DO Primary Care Provider [phone] Allergies No known active allergies Medications aspirin [...] prevent demand ischemic events. PAF (paroxysmal atrial fibrillation) 04/20/2025 Assessment & Plan (08/09/2025 2:37 PM EDT): Paroxysmal atrial fibrillation. Asymptomatic. CHADSVASc - 6. Continue with metoprolol and warfarin. Assessment & Plan (04/27/2025 4:33 PM EDT): Paroxysmal atrial fibrillation. Asymptomatic. CHADSVASc - 6. Continue with metoprolol and warfarin. Orders: ECG 12 lead Acute pulmonary embolism 04/20/2025 Overview (04/27/2025): January 2025 - admitted to [facility] with gait imbalance found to have a UTI, paroxysmal atrial fibrillation and provoked acute pulmonary embolism of the left lower lobe; transferred to [facility] and felt to be elevated risk for [...] high-dose atorvastatin.` Coronary artery disease invo lving [place] coronary artery of [place] heart without angina pectoris 06/11/2022 Overview (04/27/2025): [...] stenting in the setting of an inferior OK in 2011. He has not had overt [...] left ventricular dysfunction. Orders: ECG 12 lead Medical History Medical History Date Comments Multifactorial gait disorder Hypertension Hyperlipidemia Myelopathy ([facility] V24, CMS/HCC V28) Social History Tobacco Use [...] on file Sexual Orientation Not on file Last Filed Vital Signs Vital Sign Reading [...] mmol/L LAB CHEMISTRY METHOD 03/07/2025 12:39 PM [facility] Potassium 3.8 3.5 - 5.5 mmol/L LAB CHEMISTRY METHOD 03/07/2025 12:39 PM [facility] Chloride 101 96 - 110 mmol/L LAB CHEMISTRY METHOD 03/07/2025 12:39 PM [facility] CO2 32 21 - 32 mmol/L LAB CHEMISTRY METHOD 03/07/2025 12:39 PM [facility] Anion Gap 4 3 - 11 LAB CHEMISTRY METHOD 03/07/2025 12:39 PM [facility] Glucose 77 70 - 100 mg/dL LAB CHEMISTRY METHOD 03/07/2025 12:39 PM [facility] BUN 14 5 - 25 mg/dL LAB CHEMISTRY METHOD 03/07/2025 12:39 PM [facility] Creatinine 0.51(L) 0.70 - 1.30 mg/dL LAB CHEMISTRY METHOD 03/07/2025 12:39 PM [facility] eGFR 99 >=60 mL/min/1. 73m2 LAB CHEMISTRY METHOD 03/07/2025 12:39 PM [facility] Comment:Calculation based on the Chronic Kidney Disease Epidemiology Collaboration (CKD-EPI) equation refit without adjustment for race. BUN/Creatinine Ratio 27.5 LAB CHEMISTRY METHOD 03/07/2025 12:39 PM [facility] Calcium 8.6 8.5 - 10.5 mg/dL LAB CHEMISTRY METHOD 03/07/2025 12:39 PM [facility] AST (SGOT) 32 10 - 42 unit/L LAB CHEMISTRY METHOD 03/07/2025 12:39 PM [facility] ALT (SGPT) 48 10 - 60 unit/L LAB CHEMISTRY METHOD 03/07/2025 12:39 PM [facility] Alkaline Phosphatase 116 42 - 121 unit/L LAB CHEMISTRY METHOD 03/07/2025 12:39 PM [facility] Total Protein 5.3(L) 6.0 - 8.0 g/dL LAB CHEMISTRY METHOD 03/07/2025 12:39 PM [facility] Albumin 2.8(L) 3.2 - 5.0 g/dL LAB CHEMISTRY METHOD 03/07/2025 12:39 PM [facility] Total Bilirubin 1.0 0.0 - 1.4 mg/dL LAB CHEMISTRY METHOD 03/07/2025 12:39 PM [facility] Blood Venous blood specimen / Unknown Venipuncture / Unknown 03/07/2025 5:15 AM EDT 03/07/2025 10:19 AM EDT us Fidencio Burroughs MD LAB BLOOD ORDERABLES Final Res ult [facility] [address] [place] [address], from Last 3 Months or Most Recently Relevant to Health Maintenance Additional Health Concerns Infection Onset Date Last Indicated ESBL 05/25/2025 05/25/2025 Insurance [facility] [employer] Care Teams Machine Stone Polisher Relationship Specialty Start Date End Date Cj Barber DO [address] [place] [phone] PCP - General 04/21/13
--- OUTSIDE RECORDS SUMMARY | 2025-11-11 12:54 | XMS_ITS | Encounter Summary ---
Author Organization [facility] Address [address] [place] [address] Care Team Providers Care Webfed Offset Press Operator Name Role Phone Cj Barber DO Primary Care Provider [phone] Encounter Details Date Type Department Care Team (Late st Contact Info) Description 05/25/2025 Lab Requisition [facility] - Main Lab 299 [facility] [place] [address] Hilton Saavedra, ALY [address] [place] [address] Urinary tract infection, site not specified; Benign [...] mirabilis ESBL(A) BAUDILIO 05/29/2025 8:45 AM EDT [facility] Comment: THIS ORGANISM IS POSITIVE [...] Pseudomonas aeruginosa(A) BAUDILIO 05/29/2025 8:45 AM EDT [facility] Comment: The organism value for this result has been updated. These results have been appended to the previously preliminary verified report. This is an edited result. Previous organism was Gram negative bacilli on 05/27/2025 at 1022 EDT. Urine Urine specimen obtained by clean catch procedure / Unknown 05/25/2025 05/25/2025 5:52 PM EDT Narrative [facility] - 05/29/2025 8:45 AM EDT [...] Susceptible Pseudomonas aeruginosa Cefepime DISK DIFFUSION Susceptible [facility] LAB MICROBIOLOGY - GENERAL TRISTEN GALAVIZ Final Result [facility] [address] [place] [address], documented in this encounter Visit Diagnoses Diagnosis Urinary tract infection, site not specified Benign prostatic hyperplasia with lower urinary tract symptoms documented in this encounter Additional Health Concerns Infection Onset Date Last Indicated Resolved Time ESBL 05/25/2025 05/25/2025 documented as of this encounter Care Teams Webfed Offset Press Operator Relationship Specialty Start Date End Date Cj Barber DO [address] [place] [phone] PCP - General 04/21/13 documented as of this encounter
--- OUTSIDE RECORDS SUMMARY | 2025-11-11 12:54 | XMS_ITS | Encounter Summary ---
Author Organization [facility] Address [address] [place] [address] Care Team Providers Care Curling Machine Operator Name Role Phone Cj Barber DO Primary Care Provider [phone] Encounter Details Date Type Department Care Team (Late st Contact Info) Description 04/08/2025 Lab Requisition [facility] - Main Lab 299 [facility] [place] [phone] Luis Miguel Caceres MD [address] [place] [phone] Gross hematuria Social History Tobacco Use Types [...] if clinically indicated. 04/10/2025 10:30 AM EDT [facility] ([facility]) [facility] Urine Indwelling urinary catheter / Unknown 04/08/2025 04/08/2025 12:46 PM EDT us Luis Miguel Caceres MD LAB MICROBIOLOGY - GENERAL O RDERABLES Final Result [facility] [address] [place] [address], documented in this encounter Visit Diagnoses Diagnosis Gross hematuria documented in this encounter Additional Health Concerns Infection Onset Date Last Indicated Resolved Time ESBL 05/25/2025 05/25/2025 documented as of this encounter Care Teams Curling Machine Operator Relationship Specialty Start Date End Date Cj Barber DO [address] [place] [phone] PCP - General 04/21/13 documented as of this encounter
--- OUTSIDE RECORDS SUMMARY | 2025-11-11 12:54 | XMS_ITS | Encounter Summary ---
Author Organization [facility] Address [address] [place] [address] Care Team Providers Care Profile Mill Operator Tape Control Name Role Phone Cj Barber DO Primary Care Provider [phone] Encounter Details Date Type Department Care Team (Late st Contact Info) Description 03/01/[address] [facility] - Main Lab 299 [facility] [place] [address] Fidencio Burroughs MD [address] [place] [address] Encounter for other general examination Social History [...] albicans/du bliniensis( A) 03/07/2025 12:41 PM EDT [facility] Comment: Edited result: Previously reported as Yeast on 03/07/2025 at 1047 EDT. Swab Penile structure / Unknown 03/01/2025 5:22 AM EDT 03/01/2025 10:41 AM EDT Fdiencio Burroughs MD LAB MICROBIOLOGY - GENERAL ORD ERABLES Final Result [facility] [address] [place] [address], * (ABNORMAL) Culture wound with gram stain (03/01/2025 5:22 AM EDT) Culture, Wound Proteus mirabilis(A) BAUDILIO 03/09/2025 9:56 AM EDT [facility] [...] Enterococcus faecalis(A) BAUDILIO 03/09/2025 9:56 AM EDT [facility] Comment: The organism value for this result has been updated. These results have been appended to the previously preliminary verified report. This is an edited result. Previous organism was Streptococcus Gamma non hemolytic on 03/06/2025 at 0911 EDT. Culture, Wound Pseudomonas aeruginosa(A) BAUDILIO 03/09/2025 9:56 AM EDT [facility] Comment: The organism value for this result has been updated. These results have been appended to the previously preliminary verified report. This is an edited result. Previous organism was Gram negative bacilli on 03/07/2025 at 1012 EDT. Gram Stain Result Moderate Polymorphonuclear leukocytes 03/09/2025 9:56 AM EDT [facility] Gram Stain Result Few Epithelial cells 03/09/2025 9:56 AM EDT [facility] Gram Stain Result No organisms seen 03/09/2025 9:56 AM EDT [facility] Swab Penile structure [...] - GENERAL ORD ERABLES Final Result [facility] [address] [place] [address], documented in this encounter Visit Diagnoses Diagnosis Encounter for other general examination documented in this encounter Additional Health Concerns Infection Onset Date Last Indicated Resolved Time ESBL 05/25/2025 05/25/2025 documented as of this encounter Care Teams Profile Mill Operator Tape Control Relationship Specialty Start Date End Date Cj Barber DO [address] [place] [phone] PCP - General 04/21/13 documented as of this encounter
--- OUTSIDE RECORDS SUMMARY | 2025-11-11 12:54 | XMS_ITS | Encounter Summary ---
Author Organization [facility] Address [address] [place] [address] Care Team Providers Care Dairy Associate Name Role Phone Cj Barber DO Primary Care Provider [phone] Encounter Details Date Type Department Care Team (Late st Contact Info) Description 02/26/2025 Lab Requisition [facility] - Main Lab 299 [facility] [place] [address] Fidencio Burroughs MD [address] [place] [address] Encounter for other general examination Social History [...] CBC auto differential (02/26/2025 6:35 AM EDT) [facility] WBC 11.9(H) 4.8 - 10.8 K/mcL LAB HEMETOLOGY METHOD 02/26/2025 11:12 AM [facility] RBC 4.20(L) 4.50 - 5.50 M/mcL LAB HEMETOLOGY METHOD 02/26/2025 11:12 AM [facility] Hemoglobin 12.6(L) 13.5 - 17.5 g/dL LAB HEMETOLOGY METHOD 02/26/2025 11:12 AM [facility] Hematocrit 38.4(L) 42.0 - 54.0 % LAB HEMETOLOGY METHOD 02/26/2025 11:12 AM [facility] MCV 92.5 79.0 - 98.0 FL LAB HEMETOLOGY METHOD 02/26/2025 11:12 AM [facility] MCH 30.4 27.0 - 32.0 pcg LAB HEMETOLOGY METHOD 02/26/2025 11:12 AM [facility] MCHC 32.8 32.0 - 37.0 g/dL LAB HEMETOLOGY METHOD 02/26/2025 11:12 AM [facility] RDW 13.6 11.0 - 15.0 % LAB HEMETOLOGY METHOD 02/26/2025 11:12 AM [facility] Platelets 02/26/2025 11:12 AM [facility] Comment:Not measured. Platel ets appear adequate but clumped MPV 10.5 7.0 - 11.0 FL LAB HEMETOLOGY METHOD 02/26/2025 11:12 AM [facility] NRBC 0.0 <1.0 % LAB HEMETOLOGY METHOD 02/26/2025 11:12 AM [facility] NRBC Absolute 0.00 <0.10 K/mcL LAB HEMETOLOGY METHOD 02/26/2025 11:12 AM [facility] Neutrophils Relative 78.4 % LAB HEMETOLOGY METHOD 02/26/2025 11:12 AM [facility] Lymphocytes Relative 13.1 % LAB HEMETOLOGY METHOD 02/26/2025 11:12 AM [facility] Monocytes Relative 7.0 % LAB HEMETOLOGY METHOD 02/26/2025 11:12 AM [facility] Eosinophils Relative 1.0 % LAB HEMETOLOGY METHOD 02/26/2025 11:12 AM [facility] Basophils Relative 0.2 % LAB HEMETOLOGY METHOD 02/26/2025 11:12 AM [facility] Immature Granulocytes Relative 0.3 % LAB HEMETOLOGY METHOD 02/26/2025 11:12 AM [facility] Neutrophils Absolute 9.33(H) 1.50 - 7.00 K/mcL LAB HEMETOLOGY METHOD 02/26/2025 11:12 AM [facility] Lymphocytes Absolute 1.56 1.00 - 5.00 K/mcL LAB HEMETOLOGY METHOD 02/26/2025 11:12 AM [facility] Monocytes Absolute 0.83 0.20 - 1.00 K/mcL LAB HEMETOLOGY METHOD 02/26/2025 11:12 AM [facility] Eosinophils Absolute 0.12 0.00 - 0.50 K/mcL LAB HEMETOLOGY METHOD 02/26/2025 11:12 AM [facility] Basophils Absolute 0.02 0.00 - 0.20 K/mcL LAB HEMETOLOGY METHOD 02/26/2025 11:12 AM [facility] Immature Granulocytes Absolute 0.04(H) 0.00 - 0.03 K/mcL LAB HEMETOLOGY METHOD 02/26/2025 11:12 AM [facility] Blood Venous blood specimen / Unknown Venipuncture / Unknown 02/26/2025 6:35 AM EDT 02/26/2025 9:37 AM EDT us Fidencio Burroughs MD LAB BLOOD ORDERABLES Final Res ult [facility] [address] [place] [address], * (ABNORMAL) Comprehensive metabolic panel (02/26/2025 6:35 AM EDT) Sodium 135 133 - 145 mmol/L LAB CHEMISTRY METHOD 02/26/2025 11:29 AM [facility] Potassium 4.1 3.5 - 5.5 mmol/L LAB CHEMISTRY METHOD 02/26/2025 11:29 AM [facility] Chloride 98 96 - 110 mmol/L LAB CHEMISTRY METHOD 02/26/2025 11:29 AM [facility] CO2 33(H) 21 - 32 mmol/L LAB CHEMISTRY METHOD 02/26/2025 11:29 AM [facility] Anion Gap 4 3 - 11 LAB CHEMISTRY METHOD 02/26/2025 11:29 AM [facility] Glucose 83 70 - 100 mg/dL LAB CHEMISTRY METHOD 02/26/2025 11:29 AM [facility] BUN 17 5 - 25 mg/dL LAB CHEMISTRY METHOD 02/26/2025 11:29 AM [facility] Creatinine 0.50(L) 0.70 - 1.30 mg/dL LAB CHEMISTRY METHOD 02/26/2025 11:29 AM [facility] eGFR 100 >=60 mL/min/1. 73m2 LAB CHEMISTRY METHOD 02/26/2025 11:29 AM [facility] Comment:Calculation based on the Chronic Kidney Disease Epidemiology Collaboration (CKD-EPI) equation refit without adjustment for race. BUN/Creatinine Ratio 34.0 LAB CHEMISTRY METHOD 02/26/2025 11:29 AM [facility] Calcium 8.7 8.5 - 10.5 mg/dL LAB CHEMISTRY METHOD 02/26/2025 11:29 AM [facility] AST (SGOT) 59(H) 10 - 42 unit/L LAB CHEMISTRY METHOD 02/26/2025 11:29 AM [facility] ALT (SGPT) 95(H) 10 - 60 unit/L LAB CHEMISTRY METHOD 02/26/2025 11:29 AM [facility] Alkaline Phosphatase 105 42 - 121 unit/L LAB CHEMISTRY METHOD 02/26/2025 11:29 AM [facility] Total Protein 5.8(L) 6.0 - 8.0 g/dL LAB CHEMISTRY METHOD 02/26/2025 11:29 AM [facility] Albumin 3.1(L) 3.2 - 5.0 g/dL LAB CHEMISTRY METHOD 02/26/2025 11:29 AM [facility] Total Bilirubin 1.0 0.0 - 1.4 mg/dL LAB CHEMISTRY METHOD 02/26/2025 11:29 AM [facility] Blood Venous blood specimen / Unknown Venipuncture / Unknown 02/26/2025 6:35 AM EDT 02/26/2025 9:37 AM EDT us Fidencio Burroughs MD LAB BLOOD ORDERABLES Final Res ult [facility] [address] [place] [address], documented in this encounter Visit Diagnoses Diagnosis Encounter for other general examination documented in this encounter Additional Health Concerns 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
--- OUTSIDE RECORDS SUMMARY | 2025-11-11 12:54 | XMS_ITS | Encounter Summary ---
Author Organization [facility] Address [address] [place] [address] Care Team Providers Care Appliance Technician Name Role Phone Cj Barber DO Primary Care Provider [phone] Encounter Details Date Type Department Care Team (Late st Contact Info) Description 03/01/[address] [facility] - Main Lab 299 [facility] [place] [address] Fidencio Burroughs MD [address] [place] [address] Encounter for other general examination Social History [...] CBC auto differential (03/01/2025 5:29 AM EDT) [facility] WBC 8.8 4.8 - 10.8 K/mcL [...] Res ult [facility] [address] [place] [address], [place] [phone] * (ABNORMAL) Comprehensive metabolic panel (03/01/2025 5:29 [...] Res ult [facility] [address] [place] [address], documented in this encounter Visit Diagnoses Diagnosis Encounter for other general examination documented in this encounter Additional Health Concerns 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
--- OUTSIDE RECORDS SUMMARY | 2025-11-11 12:54 | XMS_ITS | Encounter Summary ---
Author Organization [facility] Address [address] [place] [address] Care Team Providers Care Stencil Printer Name Role Phone Cj Barber DO Primary Care Provider [phone] Encounter Details Date Type Department Care Team (Late st Contact Info) Description 01/15/2025 Lab Requisition [facility] - Main Lab 299 [facility] [place] [address] Fidencio Burroughs MD [address] [place] [address] Encounter for other general examination Social History [...] Res ult [facility] [address] [place] [address], [place] [phone] * Magnesium (01/15/2025 6:39 AM EST) Magnesium 2.0 1.9 - 2.6 mg/dL LAB CHEMISTRY METHOD 01/15/2025 11:[address] [facility] Blood Venous blood specimen / Unknown Venipuncture / Unknown 01/15/2025 6:39 AM EST 01/15/2025 10:03 AM EST Fidencio Burroughs MD LAB BLOOD ORDERABLES Final Res ult [facility] [address] [place] [address], [place] [phone] * (ABNORMAL) Comprehensive metabolic panel (01/15/2025 6:39 AM EST) Sodium 136 133 - 145 mmol/L LAB CHEMISTRY METHOD 01/15/2025 11:40 AM [facility] Potassium 3.9 3.5 - 5.5 mmol/L LAB CHEMISTRY METHOD 01/15/2025 11:40 AM [facility] Chloride 103 96 - 110 mmol/L LAB CHEMISTRY METHOD 01/15/2025 11:[address] [facility] CO2 28 21 - 32 mmol/L LAB CHEMISTRY METHOD 01/15/2025 11:[address] [facility] Anion Gap 5 3 - 11 LAB CHEMISTRY METHOD 01/15/2025 11:[address] [facility] Glucose 89 70 - 100 [...] ORDERABLES Final Res ult 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
--- OUTSIDE RECORDS SUMMARY | 2025-11-11 12:54 | XMS_ITS | Encounter Summary ---
Author Organization [facility] Address [address] [place] [address] Care Team Providers Care Forest Fire Equipment Operator Name Role Phone Cj Barber DO Primary Care Provider [phone] Encounter Details Date Type Department Care Team (Late st Contact Info) Description 02/25/2025 Lab Requisition [facility] - Main Lab 299 [facility] [place] [address] Fidencio Burroughs MD [address] [place] [address] Hematuria, unspecified Social History Tobacco Use Types [...] albicans/du bliniensis( A) 02/27/2025 12:30 PM EDT [facility] Comment: Edited result: Previously reported as Yeast on 02/26/2025 at 1030 EDT. Urine Indwelling urinary catheter / Unknown 02/24/2025 6:00 PM EDT 02/25/2025 12:09 PM EDT us Fidencio Burroughs MD LAB MICROBIOLOGY - GENERAL ORD ERABLES Final Result [facility] [address] [place] [address], [place] [phone] * (ABNORMAL) Urinalysis with reflex microscopic and culture (02/24/2025 6:00 PM EDT) Pathologist [facility] Specific [place] Urine 1.023 1.003 - 1.030 LAB URINALYSIS - AUTOMATED METHOD 02/25/2025 12:09 PM EDT [facility] pH, Urine 6.0 5.0 - 8.0 pH LAB URINALYSIS - AUTOMATED METHOD 02/25/2025 12:09 PM EDT [facility] Leukocytes, Urine Large(A) Negative LAB URINALYSIS - AUTOMATED METHOD 02/25/2025 12:09 PM EDT [facility] Nitrite, Urine Negative Negative LAB URINALYSIS - AUTOMATED METHOD 02/25/2025 12:09 PM EDT [facility] Protein, Urine 30(A) <=Trace mg/dL LAB URINALYSIS - AUTOMATED METHOD 02/25/2025 12:09 PM EDT [facility] [...] ORDERABLES Final Res ult Performing Organization Address [facility]/ZIP Co de Phone Number [facility] [address] [place] [address], [place] [phone] * Mckeon urine culture tube (02/24/2025 6:00 PM EDT) Extra Tube Hold for add-ons. 02/25/2025 1:01 PM EDT [facility] Comment:Auto resulted. 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
--- OUTSIDE RECORDS SUMMARY | 2025-11-11 12:54 | XMS_ITS | Encounter Summary ---
Author Organization [facility] Address [address] [place] [address] Care Team Providers Care Fabric Finisher Name Role Phone Cj Barber DO Primary Care Provider [phone] Encounter Details Date Type Department Care Team (Late st Contact Info) Description 01/17/2025 Lab Requisition [facility] - Main Lab 299 [facility] [place] [address] Fidencio Burroughs MD [address] [place] [address] Encounter for other general examination Social History [...] mirabilis(A ) BAUDILIO 01/19/2025 11:30 AM EST [facility] Comment: Edited result: Previously [...] <=4 ug/ml: Susceptible Proteus mirabilis Cefazolin (Urine) ABUDILIO 4 ug/ml: Susceptible Proteus mirabilis Cefoxitin BAUDILIO [...] MICROBIOLOGY - GENERAL ORD ERABLES Final Result [facility] [address] [place] [address], [place] [phone] * (ABNORMAL) Urinalysis with reflex microscopic and culture (01/17/2025 4:00 AM EST) Specific [place] Urine 1.009 1.003 - 1.030 LAB URINALYSIS - AUTOMATED METHOD 01/17/2025 12:04 PM [facility] pH, Urine 7.5 5.0 - 8.0 pH LAB URINALYSIS - AUTOMATED METHOD 01/17/2025 12:04 PM [facility] Leukocytes, Urine Large(A) Negative LAB URINALYSIS - AUTOMATED METHOD 01/17/2025 12:04 PM [facility] Nitrite, Urine Negative Negative LAB URINALYSIS - AUTOMATED METHOD 01/17/2025 12:04 PM [facility] Protein, Urine 30(A) <=Trace mg/dL LAB URINALYSIS - AUTOMATED METHOD 01/17/2025 12:04 PM [facility] Glucose, Urine Negative Negative mg/dL LAB URINALYSIS - AUTOMATED METHOD 01/17/2025 12:04 PM [facility] Ketones, Urine Negative Negative mg/dL LAB URINALYSIS - AUTOMATED METHOD 01/17/2025 12:04 PM [facility] Urobilinogen, Urine 1.0 0.2 - 1.0 mg/dL LAB URINALYSIS - AUTOMATED METHOD 01/17/2025 12:04 PM [facility] Bilirubin, Urine Negative Negative LAB URINALYSIS - AUTOMATED METHOD 01/17/2025 12:04 PM [facility] Blood, Urine Large(A) Negative LAB URINALYSIS - AUTOMATED METHOD 01/17/2025 12:04 PM [facility] RBC, Urine 501.9(H) 0 - 4 /HPF LAB URINALYSIS - AUTOMATED METHOD 01/17/2025 12:04 PM [facility] WBC, Urine 505.7(H) 0 - 4 /HPF LAB URINALYSIS - AUTOMATED METHOD 01/17/2025 12:04 PM [facility] Squamous Epithelial, Urine 4 0 - 60 /LPF LAB URINALYSIS - AUTOMATED METHOD 01/17/2025 12:04 PM [facility] Bacteria, Urine Negative Negative /HPF LAB URINALYSIS - AUTOMATED METHOD 01/17/2025 12:04 PM [facility] Hyaline Casts, Urine 4.8(H) 0 - 3 /LPF LAB URINALYSIS - AUTOMATED METHOD 01/17/2025 12:04 PM [facility] Urine Indwelling urinary catheter / Unknown Non-blood Collection / Unknown 01/17/2025 4:00 AM EST 01/17/2025 10:12 AM EST us Fidencio Burroughs MD LAB URINE ORDERABLES Final Res ult Performing Organization Address [facility]/ZIP Co de Phone Number [facility] [address] [place] [address], [place] [phone] * Mckeon urine culture tube (01/17/2025 4:00 AM EST) Extra Tube Hold for add-ons. 01/17/2025 12:01 PM [facility] Comment:Auto resulted. 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
--- OUTSIDE RECORDS SUMMARY | 2025-11-11 12:54 | XMS_ITS | Encounter Summary ---
Author Organization [facility] Address [address] [place] [address] Care Team Providers Care Cake Froster Name Role Phone Cj Barber DO Primary Care Provider [phone] Encounter Details Date Type Department Care Team (Late st Contact Info) Description 02/19/2025 Lab Requisition [facility] - Main Lab 299 [facility] [place] [address] Fidencio Burroughs MD [address] [place] [address] Encounter for other general examination Social History [...] LAB HEMETOLOGY METHOD 02/19/2025 12:54 PM EDT [facility] RBC 5.10 4.50 - 5.50 M/mcL LAB HEMETOLOGY METHOD 02/19/2025 12:54 PM EDT [facility] Hemoglobin 15.6 13.5 - 17.5 g/dL LAB HEMETOLOGY METHOD 02/19/2025 12:54 PM EDT [facility] Hematocrit 47.5 42.0 - 54.0 % LAB HEMETOLOGY METHOD 02/19/2025 12:54 PM EDT [facility] MCV 92.4 79.0 - 98.0 FL LAB HEMETOLOGY METHOD 02/19/2025 12:54 PM EDT [facility] MCH 30.4 27.0 - 32.0 pcg LAB HEMETOLOGY METHOD 02/19/2025 12:54 PM EDT [facility] MCHC 32.8 32.0 - 37.0 g/dL LAB HEMETOLOGY METHOD 02/19/2025 12:54 PM EDT [facility] RDW 12.8 11.0 - 15.0 % LAB HEMETOLOGY METHOD 02/19/2025 12:54 PM EDT [facility] Platelets 02/19/2025 12:54 PM EDT [facility] Comment:Not measured. Platel ets appear adequate but clumped Suggest drawing blue top tube with CBC MPV 10.7 7.0 - 11.0 FL LAB HEMETOLOGY METHOD 02/19/2025 12:54 PM EDT [facility] NRBC 0.0 <1.0 % LAB HEMETOLOGY METHOD 02/19/2025 12:54 PM EDT [facility] NRBC Absolute 0.00 <0.10 K/mcL LAB HEMETOLOGY METHOD 02/19/2025 12:54 PM [facility] Neutrophils Relative 83.5 % LAB HEMETOLOGY METHOD 02/19/2025 12:54 PM [facility] Lymphocytes Relative 10.5 % LAB HEMETOLOGY METHOD 02/19/2025 12:54 PM [facility] Monocytes Relative 5.4 % LAB HEMETOLOGY METHOD 02/19/2025 12:54 PM [facility] Eosinophils Relative 0.0 % LAB HEMETOLOGY METHOD 02/19/2025 12:54 PM [facility] Basophils Relative 0.1 % LAB HEMETOLOGY METHOD 02/19/2025 12:54 PM [facility] Immature Granulocytes Relative 0.5 % LAB HEMETOLOGY METHOD 02/19/2025 12:54 PM [facility] Neutrophils Absolute 8.77(H) 1.50 - 7.00 K/mcL LAB HEMETOLOGY METHOD 02/19/2025 12:54 PM [facility] Lymphocytes Absolute 1.10 1.00 - 5.00 K/mcL LAB HEMETOLOGY METHOD 02/19/2025 12:54 PM [facility] Monocytes Absolute 0.57 0.20 - 1.00 K/mcL LAB HEMETOLOGY METHOD 02/19/2025 12:54 PM [facility] Eosinophils Absolute 0.00 0.00 - 0.50 K/mcL LAB HEMETOLOGY METHOD 02/19/2025 12:54 PM [facility] Basophils Absolute 0.01 0.00 - 0.20 K/mcL LAB HEMETOLOGY METHOD 02/19/2025 12:54 PM [facility] Immature Granulocytes Absolute 0.05(H) 0.00 - 0.03 K/mcL LAB HEMETOLOGY METHOD 02/19/2025 12:54 PM EDT [facility] Blood Venous blood specimen / Unknown Venipuncture / Unknown 02/19/2025 5:42 AM EDT 02/19/2025 9:50 AM EDT Fidencio Burroughs MD LAB BLOOD ORDERABLES Final Res ult Performing Organization Address [facility]/ZIP Co de Phone Number [facility] [address] [place] [address], [place] [phone] * Magnesium (02/19/2025 5:42 AM EDT) Pathologist [facility] Magnesium 2.4 1.9 - 2.6 mg/dL LAB CHEMISTRY METHOD 02/19/2025 12:23 PM EDT [facility] Blood Venous blood specimen / Unknown Venipuncture / Unknown 02/19/2025 5:42 AM EDT 02/19/2025 9:50 AM EDT Fidencio Burroughs MD LAB BLOOD ORDERABLES Final Res ult Performing Organization Address [facility]/ZIP Co de Phone Number [facility] [address] [place] [address], [place] [phone] * (ABNORMAL) Comprehensive metabolic panel (02/19/2025 5:42 AM EDT) Sodium 131(L) 133 - 145 mmol/L LAB CHEMISTRY METHOD 02/19/2025 12:41 PM EDT [facility] Potassium 4.5 3.5 - 5.5 mmol/L LAB CHEMISTRY METHOD 02/19/2025 12:41 PM EDT [facility] Chloride 94(L) 96 - 110 mmol/L LAB CHEMISTRY METHOD 02/19/2025 12:41 PM EDT [facility] CO2 29 21 - 32 mmol/L LAB CHEMISTRY METHOD 02/19/2025 12:41 PM [facility] Anion Gap 8 3 - 11 LAB CHEMISTRY METHOD 02/19/2025 12:41 PM [facility] Glucose 61(L) 70 - 100 mg/dL LAB CHEMISTRY METHOD 02/19/2025 12:41 PM [facility] BUN 23 5 - 25 mg/dL LAB CHEMISTRY METHOD 02/19/2025 12:41 PM [facility] Creatinine 0.70 0.70 - 1.30 mg/dL LAB CHEMISTRY METHOD 02/19/2025 12:41 PM [facility] eGFR 90 >=60 mL/min/1. 73m2 LAB CHEMISTRY METHOD 02/19/2025 12:41 PM [facility] Comment:Calculation based on the Chronic Kidney Disease Epidemiology Collaboration (CKD-EPI) equation refit without adjustment for race. BUN/Creatinine Ratio 32.9 LAB CHEMISTRY METHOD 02/19/2025 12:41 PM [facility] Calcium 9.1 8.5 - 10.5 mg/dL LAB CHEMISTRY METHOD 02/19/2025 12:41 PM [facility] AST (SGOT) 31 10 - 42 unit/L LAB CHEMISTRY METHOD 02/19/2025 12:41 PM [facility] ALT (SGPT) 90(H) 10 - 60 unit/L LAB CHEMISTRY METHOD 02/19/2025 12:41 PM [facility] Alkaline Phosphatase 127(H) 42 - 121 unit/L LAB CHEMISTRY METHOD 02/19/2025 12:41 PM [facility] Total Protein 6.2 6.0 - 8.0 g/dL LAB CHEMISTRY METHOD 02/19/2025 12:41 PM [facility] Albumin 3.3 3.2 - 5.0 g/dL LAB CHEMISTRY METHOD 02/19/2025 12:41 PM [facility] Total Bilirubin 0.7 0.0 - 1.4 mg/dL LAB CHEMISTRY METHOD 02/19/2025 12:41 PM EDT [facility] Blood Venous blood specimen / Unknown Venipuncture / Unknown 02/19/2025 5:42 AM EDT 02/19/2025 9:50 AM EDT us Fidencio Burroughs MD LAB BLOOD ORDERABLES Final Res ult [facility] [address] [place] [address], documented in this encounter Visit Diagnoses Diagnosis Encounter for other general examination documented in this encounter Additional Health Concerns 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
--- OUTSIDE RECORDS SUMMARY | 2025-11-11 12:54 | XMS_ITS | Encounter Summary ---
Author Organization [facility] Address [address] [place] [address] Care Team Providers Care Burial Vault Deliverer And Installer Name Role Phone Cj Barber DO Primary Care Provider [phone] Encounter Details Date Type Department Care Team (Late st Contact Info) Description 01/25/2025 Lab Requisition [facility] - Main Lab 299 [facility] [place] [address] Fidencio Burroughs MD [address] [place] [phone] Encounter for other general examination Social History [...] AM EST) WBC 7.8 4.8 - 10.8 /[facility] LAB HEMETOLOGY METHOD 01/25/2025 11:36 AM [facility] RBC 4.50 4.50 - 5.50 M/mcL LAB HEMETOLOGY METHOD 01/25/2025 11:36 AM [facility] Hemoglobin 13.7 13.5 - 17.5 g/dL LAB HEMETOLOGY METHOD 01/25/2025 11:36 AM [facility] Hematocrit 41.6(L) 42.0 - 54.0 % LAB HEMETOLOGY METHOD 01/25/2025 11:36 AM [facility] MCV 93.3 79.0 - 98.0 FL LAB HEMETOLOGY METHOD 01/25/2025 11:36 AM [facility] MCH 30.7 27.0 - 32.0 pcg LAB HEMETOLOGY METHOD 01/25/2025 11:36 AM [facility] MCHC 32.9 32.0 - 37.0 g/dL LAB HEMETOLOGY METHOD 01/25/2025 11:36 AM [facility] RDW 12.9 11.0 - 15.0 % LAB HEMETOLOGY METHOD 01/25/2025 11:36 AM [facility] Platelets 01/25/2025 11:36 AM [facility] Comment:Not measured. Platel ets appear adequate but clumped MPV 11.1(H) 7.0 - 11.0 FL LAB HEMETOLOGY METHOD 01/25/2025 11:36 AM [facility] NRBC 0.0 <1.0 % LAB HEMETOLOGY METHOD 01/25/2025 11:36 AM [facility] NRBC Absolute 0.00 <0.10 K/mcL LAB HEMETOLOGY METHOD 01/25/2025 11:36 AM [facility] Blood Venous blood specimen / Unknown Venipuncture / Unknown 01/25/2025 7:02 AM EST 01/25/2025 10:36 AM EST us Fidencio Burroughs MD LAB BLOOD ORDERABLES Final Res ult [facility] [address] [place] [address], [place] [phone] * (ABNORMAL) Comprehensive metabolic panel (01/25/2025 7:02 AM EST) Sodium 137 133 - 145 mmol/L LAB CHEMISTRY METHOD 01/25/2025 11:50 AM EST [facility] Potassium 3.9 3.5 - 5.5 mmol/L LAB CHEMISTRY METHOD 01/25/2025 11:50 AM [facility] Chloride 101 96 - 110 mmol/L LAB CHEMISTRY METHOD 01/25/2025 11:50 AM [facility] CO2 27 21 - 32 mmol/L LAB CHEMISTRY METHOD 01/25/2025 11:50 AM [facility] Anion Gap 9 3 - 11 LAB CHEMISTRY METHOD 01/25/2025 11:50 AM [facility] Glucose 87 70 - 100 mg/dL LAB CHEMISTRY METHOD 01/25/2025 11:50 AM [facility] BUN 10 5 - 25 mg/dL LAB CHEMISTRY METHOD 01/25/2025 11:50 AM [facility] Creatinine 0.50(L) 0.70 - 1.30 mg/dL LAB CHEMISTRY METHOD 01/25/2025 11:50 AM [facility] eGFR 100 >=60 mL/min/1. 73m2 LAB CHEMISTRY METHOD 01/25/2025 11:50 AM [facility] Comment:Calculation based on the Chronic Kidney Disease Epidemiology Collaboration (CKD-EPI) equation refit without adjustment for race. BUN/Creatinine Ratio 20.0 LAB CHEMISTRY METHOD 01/25/2025 11:50 AM [facility] Calcium 9.1 8.5 - 10.5 mg/dL LAB CHEMISTRY METHOD 01/25/2025 11:50 AM [facility] AST (SGOT) 28 10 - 42 unit/L LAB CHEMISTRY METHOD 01/25/2025 11:50 AM [facility] ALT (SGPT) 38 10 - 60 unit/L LAB CHEMISTRY METHOD 01/25/2025 11:50 AM [facility] Alkaline Phosphatase 127(H) 42 - 121 unit/L LAB CHEMISTRY METHOD 01/25/2025 11:50 AM [facility] Total Protein 6.1 6.0 - 8.0 g/dL LAB CHEMISTRY METHOD 01/25/2025 11:50 AM [facility] Albumin 3.1(L) 3.2 - 5.0 g/dL LAB CHEMISTRY METHOD 01/25/2025 11:50 AM [facility] Total Bilirubin 0.7 0.0 - 1.4 mg/dL LAB CHEMISTRY METHOD 01/25/2025 11:50 AM [facility] Blood Venous blood specimen / Unknown Venipuncture / Unknown 01/25/2025 7:02 AM EST 01/25/2025 10:36 AM EST us Fidencio Burroughs MD LAB BLOOD ORDERABLES Final Res ult [facility] [address] [place] [address], documented in this encounter Visit Diagnoses Diagnosis Encounter for other general examination documented in this encounter Additional Health Concerns 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
== END 2025-11-11 11:14 | disposition home or self-care (01) ==
LOC: HO.ACS 11:01
PROVIDERS: PCP Physician Assistant Medical; Visit Provider Internal Medicine Medical Oncology
DX: Z79.01 Long term (current) use of anticoagulants (principal)

== ENCOUNTER → 2025-11-11 11:01 | Outpatient (BNVA) | payer MEDICARE, SELFPAY | PROVIDERS: PCP Physician Assistant Medical; Visit Provider Internal Medicine Medical Oncology | DX: Z79.01 Long term (current) use of anticoagulants (principal); Z51.81 Encounter for therapeutic drug level monitoring | CPT/HCPCS: 85610; 99211 ==